=== PATIENT | male | born 1955 | race Caucasian/White ===

== ENCOUNTER 2022-08-07 11:41 | Outpatient (CLI) | payer OTHER, SELFPAY | END 2022-08-07 11:42 | disposition home or self-care (01) | LOC: AMB 08-09 00:03 | PROVIDERS: Visit Provider Family Medicine | DX: S39.92XA Unspecified injury of lower back, initial encounter (principal); W10.9XXA Fall (on) (from) unspecified stairs and steps, initial encounter; Y92.009 Unspecified place in unspecified non-institutional (private) residence as the place of occurrence of the external cause | CPT/HCPCS: A0425; A0427 ==

== ENCOUNTER 2022-08-07 12:21 | Emergency (ER) | payer OTHER, SELFPAY ==
[2022-08-07] VITALS (13 sets, daily range): BP systolic 97–136; BP diastolic 62–92; PULSE 86–100; RESP 20–24; TEMP 34.8; O2SAT 88–98; BMI 33.5
--- NOTE | 2022-08-07 12:30 | CRLHL7_ITS ---
For Patients: As a result of the Century Cures Act, medical imaging exams and procedure reports are released immediately into your electronic medical record. You may view this report before your referring provider. If you have questions, please contact your health care provider. HISTORY: Fall. Trauma. TECHNIQUE: Noncontrast CT cervical spine. COMPARISON: No prior. FINDINGS: There is no acute cervical spine fracture. There is mild reversal of the normal cervical lordosis. Slight anterolisthesis of C4 on C5 likely relates to facet joint degenerative arthrosis. No prevertebral soft tissue swelling. - At C2-C3, no central canal or left foraminal stenosis. There is mild right foraminal narrowing. At C3-C4, disc-osteophyte complex. No central canal or right foraminal stenosis. There is mild left foraminal stenosis. At C4-C5, no central canal or foraminal stenosis. At C5-C6, disc-osteophyte complex with mild ventral thecal sac effacement. No foraminal stenosis. At C6-C7, disc-osteophyte complex. Mild ventral thecal sac effacement. Mild foraminal narrowing. At C7-T1, no central canal or foraminal stenosis. IMPRESSION: 1. No acute cervical fracture. 2. Degenerative changes. Dictated by Pascual Vickers MD @ 08/07/2022 2:03:44 PM Please note that all CT scans at this facility use dose modulation, iterative reconstruction, and/or weight-based dosing when appropriate to reduce radiation dose to as low as reasonably achievable. Dictated by: Pascual Vickers MD @ 08/07/2022 14:03:51 (Electronically Signed)
--- NOTE | 2022-08-07 12:30 | CRLHL7_ITS ---
For Patients: As a result of the Century Cures Act, medical imaging exams and procedure reports are released immediately into your electronic medical record. You may view this report before your referring provider. If you have questions, please contact your health care provider. HISTORY: Fall. Trauma. TECHNIQUE: Noncontrast CT of the head. COMPARISON: No prior. FINDINGS: There is no acute intracranial hemorrhage or acute ischemic infarct. Areas of white matter low attenuation are nonspecific but likely reflect sequelae of chronic small vessel ischemic changes. No mass effect or midline shift. No hydrocephalus. No acute loss of sharif-white differentiation. Mastoid air cells are clear. Mucosal thickening involving the right greater left maxillary sinuses. Mucosal thickening involving ethmoid air cells. No acute skull fracture. IMPRESSION: No acute intracranial injury or disease. Dictated by Pascual Vickers MD @ 08/07/2022 2:00:45 PM Please note that all CT scans at this facility use dose modulation, iterative reconstruction, and/or weight-based dosing when appropriate to reduce radiation dose to as low as reasonably achievable. Dictated by: Pascual Vickers MD @ 08/07/2022 14:00:49 (Electronically Signed)
--- NOTE | 2022-08-07 12:30 | CRLHL7_ITS ---
For Patients: As a result of the Cures Act, medical imaging exams and procedure reports are released immediately into your electronic medical record. You may view this report before your referring provider. If you have questions, please contact your health care provider. HISTORY: Trauma. Fall. TECHNIQUE: One view chest. COMPARISON: 09/05/2012. FINDINGS: No focal lung infiltrate or pulmonary edema. No pneumothorax or pleural effusion. Heart size within normal limits accounting for technique. No pulmonary vascular congestion. There is deformity of a few of the left lateral ribs likely reflecting sequelae of prior trauma. IMPRESSION: 1. No acute cardiopulmonary disease. 2. Deformity of a few left lateral ribs likely reflecting sequelae of prior trauma. Dictated by Pascual Vickers MD @ 08/07/2022 2:05:21 PM Dictated by: Pascual Vickers MD @ 08/07/2022 14:05:26 (Electronically Signed)
--- NOTE | 2022-08-07 12:30 | ED.NURSE ---
Patient arrives via [facility] after falling down stairs in his home (~ 6 stairs). Hit his chest/left side on the wall during fall, tumbled downstairs. No LOC. Denies hitting head. No head/neck pain. Patient supine on cot with complaints of 10/10 low back, left buttock/leg pain. No signs of external bleeding noted. Patient alert and oriented x4. He denies ETOH use. EMS has administered 100mcg fentanyl, 2L 02 via nasal cannula for spo2 84%. Patient with nausea. Dr. Madrid in with patient for exam on arrival. Patient disrobed, log roll completed and spine assessed. No obvious injury noted. Patient's left leg appears slightly shortened. Sensation intact BLE, patient cap refill 4 seconds. Patient feels cold to touch so warm blankets provided. Plan for head/neck/chest/pelvic scans. Patient to radiology via cot.
--- NOTE | 2022-08-07 12:30 | CRLHL7_ITS ---
For Patients: As a result of the Cures Act, medical imaging exams and procedure reports are released immediately into your electronic medical record. You may view this report before your referring provider. If you have questions, please contact your health care provider. HISTORY: Hip pain. Fall. Trauma. TECHNIQUE: AP pelvis and 2 views of the left hip. COMPARISON: No prior. FINDINGS: On the right, there are mild displaced fractures of the superior and inferior pubic rami. On the left, there is subtle lucency involving the acetabulum suspicious for an acetabular fracture. No proximal femoral fracture. No hip dislocation. IMPRESSION: 1. On the left, there is subtle lucency involving the acetabulum suspicious for a fracture. 2. On the right, there are mildly displaced fractures of the superior and inferior pubic rami. Dictated by Pascual Vickers MD @ 08/07/2022 2:07:16 PM Dictated by: Pascual Vickers MD @ 08/07/2022 14:07:20 (Electronically Signed)
[2022-08-07 12:54] LABS: Basophils Percent Auto 0.1 % (0.0-3.0); Eosinophils Percent Auto 0.6 % (0.0-7.0); Hematocrit 48.3 % (37.0-53.0); Hemoglobin* 16.2 gm/dL (13.5-17.5); Immature Granulocytes Pct Auto 0.5 %; Lymphocytes Percent Auto 9.3 % (20-44); Mean Corpuscular HGB Conc 34 gm/dL (32-36); Mean Corpuscular Hemoglobin 33 pg (26-34); Mean Corpuscular Volume 97 fL (80-100); Monocytes Percent Auto 6.5 % (0.0-11.0); Platelet Count* 204 K/uL (140-440); RDW Coefficient of Variation % 12.8 % (11.5-15.5); Red Blood Count 4.96 m/uL (4.30-5.90); White Blood Count* 19.11 K/uL (4.50-11.00)
[2022-08-07 12:56] LABS: Slide Review Reflex No
--- NOTE | 2022-08-07 13:00 | CRLHL7_ITS ---
For Patients: As a result of the Century Cures Act, medical imaging exams and procedure reports are released immediately into your electronic medical record. You may view this report before your referring provider. If you have questions, please contact your health care provider. HISTORY: Fall. Trauma. TECHNIQUE: Noncontrast CT of the pelvis. COMPARISON: Radiographs 08/07/2022. FINDINGS: There is an acute multi-directional comminuted fracture of the left acetabulum. This involves the anterior, medial, superior and posterior superior acetabulum. There is approximately 6 mm displacement at the articular surface. Approximately 11 mm displacement involving the supra-acetabular iliac into which the fracture propagates. There is also an acute fracture of the left inferior pubic ramus which demonstrates approximately 3 mm displacement. There is no left proximal femoral fracture. On the right, there are acute fractures of the superior and inferior pubic rami and demonstrating approximately 4 mm of displacement. There is no right acetabular or right proximal femoral fracture. There are mild degenerative changes of both hips. Degenerative changes of the pubic symphysis with chondrocalcinosis. Degenerative changes of the sacroiliac joints. There is a small soft tissue hemorrhage along the pelvic sidewalls and within the space of Retzius. IMPRESSION: 1. On the left, there is an acute multi-directional comminuted fracture of the acetabulum propagating into the supra-acetabular iliac bone. 2. On the left, there is an acute minimally displaced fracture of the inferior pubic ramus. 3. On the right, there are acute mildly displaced fractures of the superior and inferior pubic rami. 4. Small amount of soft tissue hemorrhage along the pelvic sidewalls. Dictated by Pascual Vickers MD @ 08/07/2022 2:14:27 PM Please note that all CT scans at this facility use dose modulation, iterative reconstruction, and/or weight-based dosing when appropriate to reduce radiation dose to as low as reasonably achievable. Dictated by: Pascual Vickers MD @ 08/07/2022 14:14:31 (Electronically Signed)
[2022-08-07 13:07] LABS: Chloride* 99 mmol/L (96-114); Potassium* 3.6 mmol/L (3.6-5.1); Sodium* 135 mmol/L (135-149)
[2022-08-07 13:10] LABS: Blood Urea Nitrogen* 13 mg/dL (7-30); Calcium* 8.8 mg/dL (8.4-10.6); Carbon Dioxide* 27 mmol/L (20-32); Creatinine* 1.2 mg/dL (0.5-1.5); Est. Creatinine Clearance* 64.49; Estimated Glomerular Filt Rate 67 ml/min; Ethanol* 0.16 % (0.01-0.03); Glucose* 105 mg/dL (60-115)
[2022-08-07] MEDS: ONDANSETRON 2 MG/ML inj 4 MG IVP (13:20)
[2022-08-07] MEDS: 0.9 % SODIUM CHLORIDE 1000 ml 1,000 ML IV (13:30)
[2022-08-07] MEDS: MORPHINE 4 MG/ML INJ IVP ×2 (13:35→13:42)
--- NOTE | 2022-08-07 13:39 | ED_ITS ---
HPI - Fall General Date Seen: 08/07/22 Chief Complaint: Fall/Minor Trauma Stated Complaint: Fall down stairs Time Seen by Provider: 08/07/22 12:30 Source: patient and EMS Mode of arrival: EMS Limitations: no limitations History of Present Illness HPI Narrative: Patient is the 67-year-old gentleman who fell down approximately 6 stairs, onto his left side, shoulders and pelvis, no striking his head or neck, there was no loss of consciousness, he was able to crawl, and bear weight, call a friend, who then called the ambulance to come get him. This occurred approximately an hour and half before being seen. Describes pain mostly in his pelvis, whenever he moves his legs. No numbness tingling weakness, no nausea vomiting, he did not see stars, denies any issue with his upper extremities, is not on any blood thinners, gets his medical care at the [place], Denies any fevers chills sweats, was doing well before, admits to drinking a few beers. MD complaint: fall Onset (ago): hour(s) Fall from: standing and down stairs (#) (6) Fall witnessed: no Place fall occurred: home Loss of consciousness: No Prolonged down time: no Symptoms prior to fall: none Context: tripped/slipped and alcohol use Location of injury: pelvis Severity: moderate Quality: sharp Associated symptoms (after fall): denies Related Data Home Medications Medication Instructions Recorded Confirmed doxepin 08/07/22 hydrochlorothiazide 08/07/22 meloxicam 08/07/22 Allergies Allergy/AdvReac Type Severity Reaction Status Date / Time Penicillins Allergy Verified 08/07/22 12:36 Review of Systems Status of ROS: Reports: 10 or more systems reviewed and unremarkable except as noted in History and below Exam Narrative: Exam Narrative: TT a was called, patient was met in the trauma room 1, speaking to me normally, he was brought over from the gurney, he was not on a long board with neck protection, no complaints of neck back pain. Only complaints were pelvic pain. Pupils are equal round reactive to light, he is speaking to me normally, his neck is supple full range of motion of flexion extension lateral flexion rotation is noted. TMs are normal, no evidence of trauma over the head or neck region. GCS is 15/15, chest is good air entry bilaterally with no wheezing crackles noted, heart sounds are normal, no palpable tenderness over his anterior chest or posterior chest, abdomen is soft, obese, no guarding noted, no tenderness, no organomegaly, no bruising, pelvis is stable, but tender on the left side when I rock it, there is no blood at the penis, or meatus. No evidence of trauma, he is able to move both legs but any sort of movement of left greater than right causes pain that localizes to his pelvis. Patient is log-rolled onto his right side, his back is palpated, there is no tenderness masses or injury noted to his L-spine T-spine or C-spine notable. A good air entry with no evidence of any other of bruising or trauma. He is log- rolled back. did a fast exam, there is no evidence of free fluid, in either the splenorenal hepatorenal, or retropubic space. Const: Vital Signs, click to edit/add: Vital Signs - 24 hr 08/07/22 12:29 Temperature 94.7 F L Pulse Rate [Right Pulse Oximeter] 87 Respiratory Rate 20 Blood Pressure [Ri ght Upper Arm] 110/80 Pulse Oximetry 88 Oxygen Delivery Me thod Room Air Documenting provider has reviewed patient's vital signs: yes Course Course Hospital Course: Patient's x-ray suggested there is a pelvic fracture so CT was done urgently, while he was in the department. This showed multiple fractures on the left side through his the ileum, acetabulum, greater inferior ramus on the left, and greater ramus on the right. This is all in stable, and the risk of bleeding is high, he was immediately then put into a pelvic binder, 2nd IV was started, and [facility] was consult, I spoke to Dr. Montes at the emergency room, he accepted the patient in transfer. Time of call was 1 hour and 1 minute after the patient arrived. He will be transferred by ALS with a pelvic binder, Vital Signs Vital signs: Initial Vital Signs Temperature 94.7 F L 08/07/22 12:29 Temperature Source Temporal Artery Scan 08/07/22 12:29 Pulse Rate 87 08/07/22 12:29 Respiratory Rate 20 08/07/22 12:29 Blood Pressure 110/80 08/07/22 12: Blood Pressure Mean 90 08/07/22 12:29 Blood Pressure Position Supine 08/07/22 12:29 Pulse Oximetry 88 08/07/22 12:29 Oxygen Delivery Method Room Air 08/07/22 12:29 Vital Signs Temperature 94.7 F L 08/07/22 12:29 Pulse Rate 87 08/07/22 12:29 Respiratory Rate 20 08/07/22 12:29 Blood Pressure 110/80 08/07/22 12:29 Pulse Oximetry 88 08/07/22 12:29 Oxygen Delivery Method Room Air 08/07/22 12:29 Temperature 94.7 F L 08/07/22 12:29 Pulse Rate 87 08/07/22 12:29 Respiratory Rate 20 08/07/22 12:29 Blood Pressure 110/80 08/07/22 12:29 Pulse Oximetry 88 08/07/22 12:29 Oxygen Delivery Method Room Air 08/07/22 12:29 MDM - Fall Medical Records Attestation: I reviewed the patient's medical records. Lab Data Attestation: I reviewed the patient's lab results. Labs: Lab Results 08/07/22 Range/Units 12:32 WBC 19.11 H (4.50-11.00) K/uL RBC 4.96 (4.30-5.90) m/uL Hgb 16.2 (13.5-17.5) gm/dL Hct 48.3 (37.0-53.0) % MCV 97 (80-100) fL MCH 33 (26-34) pg MCHC 34 (32-36) gm/dL RDW Coeff of Shayy 12.8 (11.5-15.5) % Plt Count 204 (140-440) K/uL Neut % (Auto) 83.0 H (42.0-72.0) % Lymph % (Auto) 9.3 L (20-44) % [place] % (Auto) 6.5 (0.0-11.0) % Eos % (Auto) 0.6 (0.0-7.0) % Baso % (Auto) 0.1 (0.0-3.0) % Neut # (Auto) 15.90 H (1.7-7.0) K/uL Lymph # (Auto) 1.80 (0.90-2.90) K/uL Durham # (Auto) 1.20 H (0.00-0.90) K/UL Eos # (Auto) 0.10 (0.00-0.50) K/uL Baso # (Auto) 0.00 (0.00-0.30) K/uL Sodium 135 (135-149) mmol/L Potassium 3.6 (3.6-5.1) mmol/L Chloride 99 (96-114) mmol/L Carbon Dioxide 27 (20-32) mmol/L BUN 13 (7-30) mg/dL Creatinine 1.2 (0.5-1.5) mg/dL Estimated Creat Clear 64.49 Estimated GFR 67 ml/min Glucose 105 (60-115) mg/dL Calcium 8.8 (8.4-10.6) mg/dL Ethyl Alcohol 0.16 H (0.01-0.03) % ECG Data Attestation: I personally reviewed and interpreted this ECG as follows: ECG interpretation date: 08/07/22 Prior ECG tracings: not available for review Interpretation: Normal sinus rhythm, no acute ST wave changes, some ST wave flattening noted laterally, Critical Care Time Critical Care Time Critical Care Time: Yes Attestation: The patient required my highest level preparedness to intervene emergently and I personally spent this critical care time directly and personally managing the patient. This critical care time included: Obtaining a history; Examining the patient; Pulse oximetry; Ordering and reviewing of studies; Arranging urgent treatment with development of a management plan; Evaluation of patients response to treatment; Frequent reassessment discussions with other providers. This critical care time was performed to assess and manage the high probability of imminent life-threatening deterioration that could result in multiorgan failure. It was exclusive of separate billable procedures and treating other patients and teaching time. Total Critical Care Time in Minutes: 45 Discharge Plan Discharge Clinical Impression: Blood-alcohol level elevation, Multiple closed unstable lateral compression fractures of pelvis, Fall (on) (from) other stairs and steps, initial encounter Patient Disposition: [facility] Acute Care Hospital Discharge Location: [facility] Condition: Critical Prescriptions: No Action hydrochlorothiazide meloxicam doxepin Follow Up/Referrals: Provider,Not a Local [Primary Care Provider] -
--- NOTE | 2022-08-07 13:45 | ED_ITS ---
ED Chart Note Chart Note Details Date: 08/07/22 Details: E fast was performed on this patient by myself as requested by Dr. Madrid. Indication was blunt thoracoabdominal trauma. Findings: Hepatic renal space showed no evidence of free fluid and the splenorenal space showed no evidence of free fluid. Suprapubic views show no evidence of free fluid. PSA LA cardiac view was limited and somewhat difficult but there was certainly no gross pericardial fluid, no tamponade noted. Bilater al sliding lung signs were present in the left and right apical lung views. Interpretation: Negative E fast.
[2022-08-07] MEDS: MORPHINE 4 MG/ML INJ 2 MG IVP (13:55)
[2022-08-07] MEDS: fentaNYL 100 MCG/2 ML inj 50 MCG IVP (14:05)
--- NOTE | 2022-08-07 14:19 | ED.NURSE ---
Report to JENS Wright. Patient en route to their ED via [facility].
== END 2022-08-07 14:24 | disposition short-term general hospital (02) ==
PROVIDERS: Emergency Provider Family Medicine
DX: S32.82XA Multiple fractures of pelvis without disruption of pelvic ring, initial encounter for closed fracture (principal); W10.9XXA Fall (on) (from) unspecified stairs and steps, initial encounter; F10.90 Alcohol use, unspecified, uncomplicated
CPT/HCPCS: 36415; 70450; 71045; 72125; 72192; 73502; 76604; 76705; 80048; 82077; 85025; 93005; 93308; 96374; 96375; 96376; 99285; 99291; G0390; J2270; J2405; J3010; J7030

== ENCOUNTER 2022-08-07 13:56 | Outpatient (CLI) | payer OTHER, SELFPAY | END 2022-08-07 13:57 | disposition home or self-care (01) | LOC: AMB 08-09 00:08 | PROVIDERS: Visit Provider Family Medicine | DX: S32.9XXS Fracture of unspecified parts of lumbosacral spine and pelvis, sequela (principal) | CPT/HCPCS: A0425; A0426; A0427 ==

== ENCOUNTER 2023-01-30 08:01 | Outpatient (CLI) | payer OTHER, SELFPAY | END 2023-01-30 08:02 | disposition home or self-care (01) | LOC: AMB 01-31 08:12 | PROVIDERS: Visit Provider Family Medicine | DX: R53.1 Weakness (principal); R53.83 Other fatigue; R11.2 Nausea with vomiting, unspecified | CPT/HCPCS: A0425; A0427 ==

== ENCOUNTER 2023-01-30 08:37 | Observation (INO) | payer OTHER, SELFPAY ==
[2023-01-30] VITALS (34 sets, daily range): BP systolic 101–151; BP diastolic 66–86; PULSE 94–115; RESP 18; TEMP 35.7–36.6; O2SAT 91–98; BMI 32.8; BMI 35.1
--- NOTE | 2023-01-30 09:00 | CRLHL7_ITS ---
For Patients: As a result of the Century Cures Act, medical imaging exams and procedure reports are released immediately into your electronic medical record. You may view this report before your referring provider. If you have questions, please contact your health care provider. INDICATION: Shortness of breath. Abdominal pain. TECHNIQUE: CT chest was acquired with 116 cc Isovue 370 IV contrast. COMPARISON: None. FINDINGS: Lungs and pleura: 4 mm solid right upper lobe nodule (3; 40). 4 mm solid right middle lobe nodule (3; 60). Benign calcified right lower lobe granuloma (2, 3; 63). No pleural effusions, pleural thickening, or pneumothorax. Heart and vasculature: Heart size is normal. Thoracic aorta and pulmonary artery are normal in caliber. Lymph nodes/mediastinum: No mediastinal, hilar, or axillary adenopathy. Chest wall: No masses. Upper abdomen: Small hiatus hernia containing homogeneous low-density fluid abutting the right lower thoracic esophagus. The fluid is not circumscribed to indicate a cystic lesion, for example. The significance of this finding in the acute setting is undetermined. Hepatic steatosis is also noted. Please refer to the separate abdominal CT report from the same day for a complete description of findings related to the upper abdominal viscera. Bones: Chronic healed contiguous rib fracture deformities of left ribs 3, 4 and 5. IMPRESSION: Fat and fluid containing right paraesophageal hiatus hernia, of undetermined clinical significance in the acute setting. As always, the significance of imaging findings should be correlated with the patient`s clinical status. Incidental 4 mm right upper lobe and right middle lobe solid pulmonary nodules for which consensus scan as recommend no routine ongoing imaging surveillance in the absence of a stab history of malignancy or clinical risk factors for lung cancer such as a history of smoking. If the latter, a 12 month follow-up chest CT is recommended. Please refer to the separate abdominal CT report from the same day for a complete description of findings related to the upper abdominal viscera. Please note that all CT scans at this facility use dose modulation, iterative reconstruction, and/or weight-based dosing when appropriate to reduce radiation dose to as low as reasonably achievable. Dictated by Isai Aguilar MD @ 01/30/2023 12:35:01 PM (Electronically Signed)
--- NOTE | 2023-01-30 09:00 | CRLHL7_ITS ---
For Patients: As a result of the Century Cures Act, medical imaging exams and procedure reports are released immediately into your electronic medical record. You may view this report before your referring provider. If you have questions, please contact your health care provider. INDICATION: Abdominal pain, shortness of breath. COMPARISON: CT of the pelvis dated 08/07/2022. TECHNIQUE: CTA of the abdomen and pelvis with IV contrast. 116 cc of Isovue-370 administered. FINDINGS: Imaging obtained in the portal venous phase. A separate chest CT was obtained on same day likely with the same contrast bolus. Please see separate dictation. There is a small hiatal hernia containing small amount of fluid. Diffuse hepatic steatosis. Patent portal and hepatic veins. Patent splenic and mesenteric veins. No gallbladder distention. The spleen is normal in size. Adrenal glands appear unremarkable. The pancreas is normal in appearance. The iliac veins and IVC are patent. Atherosclerotic changes in the abdominal aorta without abdominal aortic aneurysm. Proximal visceral arteries appear patent. No free intraperitoneal air or fluid. Extensive fractures in the pelvis redemonstrated, incompletely healed. A serpiginous signal is seen in the bilateral femoral heads suggesting perhaps development of AVN of the bilateral femoral heads. No bowel obstruction. Appendix is normal. No colonic diverticulitis. The urinary bladder and prostate appears unremarkable. There is a mild compression deformity of the superior endplate of the L2 vertebral body and of the T11 vertebral body. IMPRESSION: 1. Severe diffuse hepatic steatosis. 2. 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 3. There is a mild compression deformity of the superior endplate of the L2 vertebral body and of the T11 vertebral body; correlate with point tenderness to terminate these fractures described seen trimester pelvic fractures are these could be more acute. Please note that all CT scans at this facility use dose modulation, iterative reconstruction, and/or weight-based dosing when appropriate to reduce radiation dose to as low as reasonably achievable. Dictated by Mendez Gracia MD @ 01/30/2023 12:45:20 PM (Electronically Signed)
--- NOTE | 2023-01-30 09:04 | ED_ITS ---
HPI - General Adult General Chief complaint: Nausea/Vomiting Stated complaint: weakness,nausea,vomiting Time Seen by Provider: 01/30/23 08:41 History of Present Illness HPI narrative: Patient is a 67 year white male who reports nausea and vomiting some chills over a week's time. He reports he has fallen multiple times because of lightheadedness and dizziness when he gets up and walks around. His blood pressure noted to be in the 60s to 70 systolic when EMS arrived, his blood pressure is now improved to 101, he does not feel like he has fevers anymore, he has had occasional shortness of breath, occasional cough, he has fallen a couple of times on his way to the bathroom and smells of urine he was unable to clean himself. Friends were concerned they brought the ambulance to his house and they brought him to the emergency department. He has had a history of a pelvic fracture he has had a history of hypertension and arthritic change in hypercholesterolemia. [facility]. he reports that he bruised his right great toe but he is moving it fully and does not feel like anything is wrong with it. He has no other pain presently. Related Data Home Medications Medication Instructions Recorded Confirmed doxepin 08/07/22 hydrochlorothiazide 08/07/22 meloxicam 08/07/22 hydrochlorothiazide 25 mg tablet 25 mg PO DAILY 01/30/23 01/30/23 sertraline 25 mg tablet 25 mg PO DAILY 01/30/23 01/30/23 simvastatin 20 mg tablet 20 mg PO QPM 01/30/23 01/30/23 Allergies Allergy/AdvReac Type Severity Reaction Status Date / Time Penicillins Allergy Verified 01/30/23 08:53 Review of Systems Status of ROS: Reports: 10 or more systems reviewed and unremarkable except as noted in History and below PFSH PFS Social History Smoking Status: Current some day smoker What tobacco products do you use: cigarettes Do you use any of these nicotine containing products: None Second hand tobacco smoke exposure: No How often do you have a drink containing alcohol: 4 or more times a week How many standard drinks containing alcohol do you have on a typical day: 1 or 2 How often do you have six or more drinks on one occasion: Never AUDIT-C Alcohol total score: 4 Non-prescribed substance use: denies use service: Yes Exam Narrative: Exam Narrative: Objective: Vital signs show blood pressure 101/86, was about 64 systolic on presentation to the EMS at home. Pulse is elevated 115, no fever noted. HEENT is unremarkable slightly dry mucous membranes neck is supple chest is clear no rales or wheezing Heart rate and rhythm regular with ectopic beat noted 2/6 systolic murmur Abdomen benign nontender no masses Extremities he has got a slight bruise over the top of his right great toe moving it fully and not markedly tender he has got no pain in his upper and lower extremities, good motion of all extremities. Neurologic is nonfocal upper lower extremities Skin periphery is warm With sitting up for examination the patient did feel little lightheaded. The patient smells of urine, reports he has had some leaking of urine as well. Const: Vital Signs, click to edit/add: Vital Signs - 24 hr 01/30/23 08:47 01/30/23 09:00 01/30/23 09:45 Temperature 96.3 F L Pulse Rate 105 H Pulse Rate [Pulse Oximeter] 115 H Respiratory Rate 18 Blood Pressure Blood Pressure [Ri ght Upper Arm] 101/86 Pulse Oximetry 97 92 96 Oxygen Delivery Me thod Room Air 01/30/23 10:00 01/30/23 10:02 01/30/23 10:03 Temperature Pulse Rate 104 H 107 H 106 H Pulse Rate [Pulse Oximeter] Respiratory Rate Blood Pressure 151/86 H Blood Pressure [Ri ght Upper Arm] Pulse Oximetry 98 93 96 Oxygen Delivery Me thod 01/30/23 10:15 01/30/23 10:43 01/30/23 10:45 Temperature Pulse Rate 107 H 104 H 109 H Pulse Rate [Pulse Oximeter] Respiratory Rate Blood Pressure Blood Pressure [Ri ght Upper Arm] Pulse Oximetry 93 94 94 Oxygen Delivery Me thod 01/30/23 11:00 01/30/23 11:02 01/30/23 11:15 Temperature Pulse Rate 106 H 104 H 102 H Pulse Rate [Pulse Oximeter] Respiratory Rate Blood Pressure 121/72 Blood Pressure [Ri ght Upper Arm] Pulse Oximetry 96 94 95 Oxygen Delivery Me thod 01/30/23 11:30 01/30/23 11:31 01/30/23 11:45 Temperature Pulse Rate 101 H 102 H 103 H Pulse Rate [Pulse Oximeter] Respiratory Rate Blood Pressure 121/79 Blood Pressure [Ri ght Upper Arm] Pulse Oximetry 98 95 98 Oxygen Delivery Me thod 01/30/23 12:00 01/30/23 12:02 01/30/23 12:03 Temperature Pulse Rate 100 101 H 102 H Pulse Rate [Pulse Oximeter] Respiratory Rate Blood Pressure 120/79 Blood Pressure [Ri ght Upper Arm] Pulse Oximetry 97 92 95 Oxygen Delivery Me thod 01/30/23 12:15 01/30/23 12:30 01/30/23 12:31 Temperature Pulse Rate 102 H 103 H 98 Pulse Rate [Pulse Oximeter] Respiratory Rate Blood Pressure 120/72 Blood Pressure [Ri ght Upper Arm] Pulse Oximetry 96 94 94 Oxygen Delivery Me thod 01/30/23 12:45 01/30/23 13:00 01/30/23 13:02 Temperature Pulse Rate 100 100 100 Pulse Rate [Pulse Oximeter] Respiratory Rate Blood Pressure 124/71 Blood Pressure [Ri ght Upper Arm] Pulse Oximetry 95 95 94 Oxygen Delivery Me thod Course Vital Signs Vital signs: Initial Vital Signs Temperature 96.3 F L 01/30/23 08:47 Temperature Source Temporal Artery Scan 01/30/23 08:47 Pulse Rate 115 H 01/30/23 08:47 Respiratory Rate 18 01/30/23 08:47 Blood Pressure 101/86 01/30/23 08:47 Blood Pressure Mean 91 01/30/23 08:47 Blood Pressure Position Sitting 01/30/23 08:47 Pulse Oximetry 97 01/30/23 08:47 Oxygen Delivery Method Room Air 01/30/23 08:47 Vital Signs Temperature 96.3 F L 01/30/23 08:47 Pulse Rate 115 H 01/30/23 08:47 Respiratory Rate 18 01/30/23 08:47 Blood Pressure 101/86 01/30/23 08:47 Pulse Oximetry 97 01/30/23 08:47 Oxygen Delivery Method Room Air 01/30/23 08:47 Temperature 96.3 F L 01/30/23 08:47 Pulse Rate 100 01/30/23 13:02 Respiratory Rate 18 01/30/23 08:47 Blood Pressure 124/71 01/30/23 13:02 Pulse Oximetry 94 01/30/23 13:02 Oxygen Delivery Method Room Air 01/30/23 08:47 Medical Decision Making MDM Narrative Medical decision making narrative: [age] [facility] white male [facility] with history of alcohol issues, pelvic fracture, hypercholesterolemia and probable hypertension. The patient presents with one-week history of nausea vomiting some loose stools, with significant dizziness lightheadedness falling. Patient has had some urinary incontinence, denies any back pain or neurologic lower extremity symptoms. At this point given the patient's systolic blood pressure in the 60s on presentation I think is in significant hypovolemic state that has improved with his IV fluid. I think we need do treat him for potential sepsis with his hypotension and his prolonged illness. Will give him IV fluids, IV banana bag, IV ertapenem. Will do blood cultures urine culture CT scan of the chest abdomen pelvis. Patient likely will need admission for observation over period of time. Will touch discussed the hospitals when labs are complete. 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 He does not describe hip pain or difficulty walking. There is also mild compression deformity superior endplate of L2 and T11 but he denies any specific back pain but he has had some falls. Again does not describe back pain. Ortho consult might be appropriate. He does also have a para soft GL hiatal hernia, and denies difficulty swallowing, and incidental 4 mm right upper lobe and middle lobe solid pulmonary nodules that will need follow-up in about 12 months Lab Data Labs: Lab Results 01/30/23 01/30/23 Range/Units 09:15 09:22 WBC 8.50 (4.50-11.00) K/uL RBC 4.06 L (4.30-5.90) m/uL Hgb 13.6 (13.5-17.5) gm/dL Hct 39.6 (37.0-53.0) % MCV 98 (80-100) fL MCH 34 (26-34) pg MCHC 34 (32-36) gm/dL RDW Coeff of Shayy 12.7 (11.5-15.5) % Plt Count 321 (140-440) K/uL Neut % (Auto) 69.2 (42.0-72.0) % Lymph % (Auto) 16.2 L (20-44) % [place] % (Auto) 12.6 H (0.0-11.0) % Eos % (Auto) 0.5 (0.0-7.0) % Baso % (Auto) 0.7 (0.0-3.0) % Neut # (Auto) 5.88 (1.7-7.0) K/uL Lymph # (Auto) 1.40 (0.90-2.90) K/uL [place] # (Auto) 1.10 H (0.00-0.90) K/UL Eos # (Auto) 0.04 (0.00-0.50) K/uL Baso # (Auto) 0.06 (0.00-0.30) K/uL Abs Immat Gran (auto) 0.07 (0.00-0.30) K/uL Imm/Tot Granulo (auto) 0.8 % INR 0.97 (0.91-1.10) APTT 26 (23-33) Seconds VBG pH 7.493 H (7.32-7.43) VBG pCO2 34 L (40-50) mmHG VBG pO2 60.9 H (25-47) mmHG VBG HCO3 26 (21-28) mmol/L Sodium 132 L (135-149) mmol/L Potassium 3.4 L (3.6-5.1) mmol/L Chloride 87 L (96-114) mmol/L Carbon Dioxide 23 (20-32) mmol/L Anion Gap 22 H (7-15) mEq/L BUN 36 H (7-30) mg/dL Creatinine 1.1 (0.5-1.5) mg/dL Estimated Creat Clear 70.36 Estimated GFR 74 ml/min Glucose 108 (60-115) mg/dL Lactate 1.6 (0.5-1.9) mmol/L Calcium 9.9 (8.4-10.6) mg/dL Total Bilirubin 2.7 H (0.1-1.5) mg/dL Direct Bilirubin 1.7 H (0.0-0.5) mg/dL AST 163 H (12-35) U/L ALT 103 H (4-50) U/L Alkaline Phosphatase 192 H (40-150) U/L Troponin I 0.02 (0.01-0.04) ng/mL C-Reactive Protein 4.4 H (0.5-1.0) mg/dL NT-Pro-B Natriuret Pep 317 pg/mL Total Protein 7.9 (6.0-8.3) g/dL Albumin 4.5 (3.3-5.0) g/dL Amylase 75 (18-89) U/L Salicylates < 1.0 L (1.0-10) mg/dL Acetaminophen < 10.0 L (10.0-30.0) ug/mL Ethyl Alcohol < 0.01 L (0.01-0.03) % SARS-CoV-2 (PCR) Negative SARS-CoV-2 (Negative) Influenza Type A (PCR) Negative PCR FLU A (Negative) Influenza Type B (PCR) Negative PCR FLU B (Negative) RSV (PCR) Negative PCR RSV (Negative) Discharge Plan Discharge Clinical Impression: Acute hypotension, Nausea & vomiting, Hypovolemia, Compression fracture, AVN of femur Patient Disposition: Admitted As Observation
[2023-01-30] MEDS: ONDANSETRON 2 MG/ML inj 4 MG IVP (09:26)
[2023-01-30] MEDS: 0.9 % SODIUM CHLORIDE 1000 ml 1,000 ML 6000 ML IV (09:26)
[2023-01-30] MEDS: PANTOPRAZOLE SODIUM 40 MG INJ IVP (09:27)
[2023-01-30 09:29] LABS: HCO3 VBG 26 mmol/L (21-28); PCO2 VBG 34 mmHG (40-50); PO2 VBG 60.9 mmHG (25-47); pH VBG 7.493 (7.32-7.43)
[2023-01-30 09:31] LABS: Basophils Absolute Auto 0.06 K/uL (0.00-0.30); Basophils Percent Auto 0.7 % (0.0-3.0); Eosinophils Absolute Auto 0.04 K/uL (0.00-0.50); Eosinophils Percent Auto 0.5 % (0.0-7.0); Hematocrit 39.6 % (37.0-53.0); Hemoglobin* 13.6 gm/dL (13.5-17.5); Immature Granulocytes Abs Auto 0.07 K/uL (0.00-0.30); Immature Granulocytes Pct Auto 0.8 %; Lymphocytes Percent Auto 16.2 % (20-44); Mean Corpuscular HGB Conc 34 gm/dL (32-36); Mean Corpuscular Hemoglobin 34 pg (26-34); Mean Corpuscular Volume 98 fL (80-100); Monocytes Percent Auto 12.6 % (0.0-11.0); Neutrophils Absolute Auto 5.88 K/uL (1.7-7.0); Neutrophils Percent Auto 69.2 % (42.0-72.0); Platelet Count* 321 K/uL (140-440); RDW Coefficient of Variation % 12.7 % (11.5-15.5); Red Blood Count 4.06 m/uL (4.30-5.90)
[2023-01-30 09:32] LABS: Slide Review Reflex No
[2023-01-30] MEDS: ERTAPENEM 1 GM in 0.9 % SODIUM CHLORIDE Mini-bag 100 ML IVPB (09:35)
[2023-01-30 09:50] LABS: Albumin* 4.5 g/dL (3.3-5.0); Chloride* 87 mmol/L (96-114)
[2023-01-30 09:51] LABS: Potassium* 3.4 mmol/L (3.6-5.1); Sodium* 132 mmol/L (135-149)
[2023-01-30 09:53] LABS: Amylase* 75 U/L (18-89); Creatinine* 1.1 mg/dL (0.5-1.5); Est. Creatinine Clearance* 70.36; Estimated Glomerular Filt Rate 74 ml/min; INR 0.97 (0.91-1.10); Prothrombin Time 13.5 Seconds
[2023-01-30 09:54] LABS: Alanine Aminotransferase* 103 U/L (4-50); Alkaline Phosphatase* 192 U/L (40-150); Anion Gap 22 mEq/L (7-15); Aspartate Amino Transferase* 163 U/L (12-35); Bilirubin Direct* 1.7 mg/dL (0.0-0.5); Bilirubin Total* 2.7 mg/dL (0.1-1.5); Blood Urea Nitrogen* 36 mg/dL (7-30); Calcium* 9.9 mg/dL (8.4-10.6); Carbon Dioxide* 23 mmol/L (20-32); Glucose* 108 mg/dL (60-115); Partial Thromboplastin Time* 26 Seconds (23-33); Total Protein* 7.9 g/dL (6.0-8.3)
[2023-01-30 09:56] LABS: C Reactive Protein* 4.4 mg/dL (0.5-1.0)
[2023-01-30 10:05] LABS: Troponin I* 0.02 ng/mL (0.01-0.04)
[2023-01-30 10:07] LABS: Ethanol* < 0.01 % (0.01-0.03); NT Pro B Type NatriureticPept* 317 pg/mL
[2023-01-30 10:16] LABS: Lactate* 1.6 mmol/L (0.5-1.9)
[2023-01-30 10:17] LABS: PCR FLU A Negative PCR FLU A (Negative); PCR FLU B Negative PCR FLU B (Negative); PCR RSV Negative PCR RSV (Negative)
[2023-01-30 10:19] LABS: SARS PCR* Negative SARS-CoV-2 (Negative)
[2023-01-30 10:39] LABS: Acetaminophen* < 10.0 ug/mL (10.0-30.0); Salicylate* < 1.0 mg/dL (1.0-10)
[2023-01-30] MEDS: PHENobarbitaL 260 MG in 0.9 % SODIUM CHLORIDE 100 ml 100 ML 208 MG IVPB (16:16)
--- NOTE | 2023-01-30 16:20 | P.IMHP_ITS ---
Hospitalist- H&P: HPI History of Present Illness Time Seen by Provider: 15:15 Date Seen: 01/30/23 Chief complaint: weakness,nausea,vomiting Narrative: Vance Bustillo is a 67 year old male with history of heavy alcohol use and a pelvic fracture in July from falling down the stairs while under the influence of alcohol who presented through the ER for concerns of 8 days of vomiting. He tells me that he started vomiting every 15 minutes 8 days ago and has been kelli ble to keep much down. He was still taking his medications which include hydrochlorothiazide for blood pressure. He started to get dehydrated in felt dizzy and over the last 2 days had several falls. Also over the last 8 days he has been incontinent of urine because he was unable to get to the bathroom in time. When EMS arrived his systolic blood pressures were in the 60s. He got fluids and by the time he got to the ER his pressures had improved with systolic pressures in the 110s. He notes some mild mid abdominal pain. He volunteered that he is ?not an alcoholic.? Please see social history for alcohol use. His sister and [id number] came in [facility] through our interview and brought his medications. They did not say much and the patient gave most of the history. Review of Systems Const: Reports: change in sleep pattern (Insomnia); Denies: fever or chills Eyes: Denies: change in vision ENMT: Reports: other (Sneezing); Denies: throat pain, neck pain, difficulty swallowing, hoarseness or nasal congestion Cardio: Denies: chest pain, swelling of feet/ankles or shortness of breath with exertion Resp: Reports: cough; Denies: shortness of breath, wheezing, change in phlegm color or chest congestion GI: Reports: abdominal pain (Mid), nausea and vomiting; Denies: coffee grounds in vomit, diarrhea, constipation, bloating, belching, difficulty swallowing, blood in stool or mucus in stool : Denies: painful urination, urinary frequency or urinary urgency Musculo: Denies: back pain, neck pain or muscle cramps Integ/Breast: Denies: rash or itching Neuro: Reports: dizziness; Denies: headache, weakness in extremities or confusion Psych: Reports: panic attacks (Chronic PTSD) Allergy/Immuno: Denies: wheezing [facility] Medical History (Updated 01/30/23 @ 16:52 by Tri Fung MD) PTSD (post-traumatic stress disorder) ?F43.10 - Post-traumatic stress disorder, unspecified (ICD-10) Insomnia ?G47.00 - Insomnia, unspecified (ICD-10) Hyperlipidemia ?E78.5 - Hyperlipidemia, unspecified (ICD-10) Arthritis ?M19.90 - Unspecified osteoarthritis, unspecified site (ICD-10) Hypertension ?I10 - Essential (primary) hypertension (ICD-10) Fall (~07/2022) ?W19.XXXA - Unspecified fall, initial encounter (ICD-10) Pelvic fracture (~07/2022) ?S32.9XXA - Fracture of unspecified parts of lumbosacral spine and pelvis, initial encounter for closed fracture (ICD-10) Social History (Updated 01/30/23 @ 16:37 by Tri Fung MD) Narrative: Quit smoking in 2012, picked it up again last April and smoked through July or August of this year. Has not had cigarettes since that time. Continuous alcohol use over many years with the exception several months while in the hospital and long-term earlier this year for a pelvic fracture that was sustained he tripped down the stairs under the influence of alcohol. Upon returning home about 3 months ago, he increased his drinking quite a bit, but notes that it has now stabilized back down to about 1.5 L of vodka spread out over 6 days. Denies use of any other types of alcohol. Denies recreational drug use, but says if he had access to marijuana he would use it for his chronic pelvic pain. 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 he had several tours in [place] and [place] and has PTSD. He was also in the [employer] for a while. What is your current living situation?: I presently have a place to live Problems where you live: no known problems Problems where you live details: N/A In the past 12 months, utilities in danger of being shut off: no In the past 12 mos, have been you worried that your food would run out before you had money to buy more?: never true In the past 12 mos, the food you bought just didn't last and you didn't have money to buy more?: never true Highest level of school completed/degree received: Bachelor's degree Smoking Status: Current some day smoker What tobacco products do you use: cigarettes Do you use any of these nicotine containing products: None Second hand tobacco smoke exposure: No How often do you have a drink containing alcohol: 4 or more times a week How many standard drinks containing alcohol do you have on a typical day: 1 or 2 How often do you have six or more drinks on one occasion: Never AUDIT-C Alcohol total score: 4 Non-prescribed substance use: denies use Caffeine: Yes How often does anyone, including family, friends and others, physically hurt you : never How often does anyone, including family, friends and others, insult or talk down to you: never How often does anyone, including family, friends and others, threaten you with harm: never How often does anyone, including family, friends and others, scream or curse at you: never service: Yes Meds Home Medications and Allergies Home Medications Medication Instructions Recorded Confirmed Type alendronate 10 mg tablet 10 mg PO DAILY 01/30/23 01/30/23 History alendronate 10 mg tablet 10 mg PO DAILY 01/30/23 01/30/23 History doxepin 10 mg capsule 10 mg PO QHS PRN 01/30/23 01/30/23 History eszopiclone 3 mg tablet 3 mg PO HS PRN 01/30/23 01/30/23 History eszopiclone 3 mg tablet 3 mg PO HS PRN 01/30/23 01/30/23 History hydrochlorothiazide 25 mg tablet 25 mg PO DAILY 01/30/23 01/30/23 History hydroxychloroquine 200 mg tablet 200 mg PO DAILY 01/30/23 01/30/23 History omeprazole 20 mg capsule,delayed 20 mg PO DAILY 01/30/23 01/30/23 History release simvastatin 20 mg tablet 20 mg PO QPM 01/30/23 01/30/23 History vortioxetine 20 mg tablet 20 mg PO DAILY 01/30/23 01/30/23 History Allergies Allergy/AdvReac Type Severity Reaction Status Date / Time Penicillins Allergy Verified 01/30/23 08:53 Exam Narrative: Exam Narrative: General: No acute distress. Awake alert oriented x3. Scleral icterus is present, possibly mild jaundice. Mild tremor. No asterixis. Disheveled. Smells of urine. HEENT: Normocephalic atraumatic, pupils equally round and reactive to light and accommodation. Oropharynx clear. Mucous membranes are dry. No cervical lymphadenopathy, thyromegaly or carotid bruits. No JVD. Cardiovascular: Regular rate and rhythm. No murmurs, gallops, or rubs. Chest: No increased work of breathing. Clear to auscultation bilaterally. No crackles or wheezes. Abdomen: Bowel sounds present. Soft, nondistended, nontender. No hepatosplenomegaly or masses. Extremities: No edema, no cyanosis or clubbing. Skin: No pallor, no rashes. Neuro: Grossly intact. No focal deficits. Const: Vital Signs, click to edit/add: Vital Signs - 24 hr 01/30/23 08:47 01/30/23 09:00 01/30/23 09:45 Temperature 96.3 F L Pulse Rate 105 H Pulse Rate [Left P ulse Oximeter] Pulse Rate [Pulse Oximeter] 115 H Respiratory Rate 18 Blood Pressure Blood Pressure [Ri ght Arm] Blood Pressure [Ri ght Upper Arm] 101/86 Pulse Oximetry 97 92 96 [facility] 01/30/23 10:00 01/30/23 10:02 01/30/23 10:03 Temperature Pulse Rate 104 H 107 H 106 H Pulse Rate [Left P ulse Oximeter] Pulse Rate [Pulse Oximeter] Respiratory Rate Blood Pressure 151/86 H Blood Pressure [Ri ght Arm] Blood Pressure [Ri ght Upper Arm] Pulse Oximetry 98 93 96 [facility] 01/30/23 10:15 01/30/23 10:43 01/30/23 10:45 Temperature Pulse Rate 107 H 104 H 109 H Pulse Rate [Left P ulse Oximeter] Pulse Rate [Pulse Oximeter] Respiratory Rate Blood Pressure Blood Pressure [Ri ght Arm] Blood Pressure [Ri ght Upper Arm] Pulse Oximetry 93 94 94 [facility] 01/30/23 11:00 01/30/23 11:02 01/30/23 11:15 Temperature Pulse Rate 106 H 104 H 102 H Pulse Rate [Left P ulse Oximeter] Pulse Rate [Pulse Oximeter] Respiratory Rate Blood Pressure 121/72 Blood Pressure [Ri ght Arm] Blood Pressure [Ri ght Upper Arm] Pulse Oximetry 96 94 95 Oxygen Delivery Me thod 01/30/23 11:30 01/30/23 11:31 01/30/23 11:45 Temperature Pulse Rate 101 H 102 H 103 H Pulse Rate [Left P ulse Oximeter] Pulse Rate [Pulse Oximeter] Respiratory Rate Blood Pressure 121/79 Blood Pressure [Ri ght Arm] Blood Pressure [Ri ght Upper Arm] Pulse Oximetry 98 95 98 Oxygen Delivery Nc thod 01/30/23 12:00 01/30/23 12:02 01/30/23 12:03 Temperature Pulse Rate 100 101 H 102 H Pulse Rate [Left P ulse Oximeter] Pulse Rate [Pulse Oximeter] Respiratory Rate Blood Pressure 120/79 Blood Pressure [Ri ght Arm] Blood Pressure [Ri ght Upper Arm] Pulse Oximetry 97 92 95 Oxygen Delivery Nc thod 01/30/23 12:15 01/30/23 12:30 01/30/23 12:31 Temperature Pulse Rate 102 H 103 H 98 Pulse Rate [Left P ulse Oximeter] Pulse Rate [Pulse Oximeter] Respiratory Rate Blood Pressure 120/72 Blood Pressure [Ri ght Arm] Blood Pressure [Ri ght Upper Arm] Pulse Oximetry 96 94 94 [facility] 01/30/23 12:45 01/30/23 13:00 01/30/23 13:02 Temperature Pulse Rate 100 100 100 Pulse Rate [Left P ulse Oximeter] Pulse Rate [Pulse Oximeter] Respiratory Rate Blood Pressure 124/71 Blood Pressure [Ri ght Arm] Blood Pressure [Ri ght Upper Arm] Pulse Oximetry 95 95 94 [facility] 01/30/23 13:03 01/30/23 13:15 01/30/23 13:32 Temperature Pulse Rate 98 101 H Pulse Rate [Left P ulse Oximeter] Pulse Rate [Pulse Oximeter] Respiratory Rate Blood Pressure 110/76 Blood Pressure [Ri ght Arm] Blood Pressure [Ri ght Upper Arm] Pulse Oximetry 96 93 Oxygen Delivery Nc thod 01/30/23 14:02 01/30/23 14:32 01/30/23 16:07 Temperature Pulse Rate Pulse Rate [Left P ulse Oximeter] 106 H Pulse Rate [Pulse Oximeter] Respiratory Rate 18 Blood Pressure 113/69 119/72 Blood Pressure [Ri ght Arm] 130/78 Blood Pressure [Ri ght Upper Arm] Pulse Oximetry 92 Oxygen Delivery Me thod Room Air Hospitalist - H&P: Result Labs Labs: Short CBC 01/30/23 Range/Units 09:22 WBC 8.50 (4.50-11.00) K/uL Hgb 13.6 (13.5-17.5) gm/dL Hct 39.6 (37.0-53.0) % Plt Count 321 (140-440) K/uL BMP 01/30/23 09:22 Sodium 132 L Potassium 3.4 L Chloride 87 L Carbon Dioxide 23 BUN 36 H Creatinine 1.1 Glucose 108 Calcium 9.9 Cardiac Enzymes 01/30/23 Range/Units 09:22 Troponin I 0.02 (0.01-0.04) ng/mL Liver Function 01/30/23 Range/Units 09:22 Total Bilirubin 2.7 H (0.1-1.5) mg/dL Direct Bilirubin 1.7 H (0.0-0.5) mg/dL AST 163 H (12-35) U/L ALT 103 H (4-50) U/L Alkaline Phosphatase 192 H (40-150) U/L Albumin 4.5 (3.3-5.0) g/dL 01/30/2023 EKG: Sinus tachycardia, heart rate 106 beats per minute, possible left atrial enlargement, low-voltage QRS, nonspecific ST abnormality, abnormal EKG. Ordering Physician: Stepan Jauregui M.D. Date of Service: 01/30/23 Procedure(s): CT abdomen pelvis w con Accession Number(s): [id number] cc: Stepan Jauregui M.D.; Provider,Not a Local~ For Patients: As a result of the 21st Century Cures Act, medical imaging exams and procedure reports are released immediately into your electronic medical record. You may view this report before your referring provider. If you have questions, please contact your health care provider. INDICATION: Abdominal pain, shortness of breath. COMPARISON: CT of the pelvis dated 08/07/2022. TECHNIQUE: CTA of the abdomen and pelvis with IV contrast. 116 cc of Isovue-370 administered. FINDINGS: Imaging obtained in the portal venous phase. A separate chest CT was obtained on same day likely with the same contrast bolus. Please see separate dictation. There is a small hiatal hernia containing small amount of fluid. Diffuse hepatic steatosis. Patent portal and hepatic veins. Patent splenic and mesenteric veins. No gallbladder distention. The spleen is normal in size. Adrenal glands appear unremarkable. The pancreas is normal in appearance. The iliac veins and IVC are patent. Atherosclerotic changes in the abdominal aorta without abdominal aortic aneurysm. Proximal visceral arteries appear patent. No free intraperitoneal air or fluid. Extensive fractures in the pelvis redemonstrated, incompletely healed. A serpiginous signal is seen in the bilateral femoral heads suggesting perhaps development of AVN of the bilateral femoral heads. No bowel obstruction. Appendix is normal. No colonic diverticulitis. The urinary bladder and prostate appears unremarkable. There is a mild compression deformity of the superior endplate of the L2 vertebral body and of the T11 vertebral body. IMPRESSION: 1. Severe diffuse hepatic steatosis. 2. 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 3. There is a mild compression deformity of the superior endplate of the L2 vertebral body and of the T11 vertebral body; correlate with point tenderness to terminate these fractures described seen trimester pelvic fractures are these could be more acute. Please note that all CT scans at this facility use dose modulation, iterative reconstruction, and/or weight-based dosing when appropriate to reduce radiation dose to as low as reasonably achievable. Dictated by Mendez Gracia MD @ 01/30/2023 12:45:20 PM (Electronically Signed) Ordering Physician: Stepan Jauregui M.D. Date of Service: 01/30/23 Procedure(s): CT chest w con Accession Number(s): [id number] cc: Stepan Jauregui M.D.; Provider,Not a Local~ For Patients: As a result of the Century Cures Act, medical imaging exams and procedure reports are released immediately into your electronic medical record. You may view this report before your referring provider. If you have questions, please contact your health care provider. INDICATION: Shortness of breath. Abdominal pain. TECHNIQUE: CT chest was acquired with 116 cc Isovue 370 IV contrast. COMPARISON: None. FINDINGS: Lungs and pleura: 4 mm solid right upper lobe nodule (3; 40). 4 mm solid right middle lobe nodule (3; 60). Benign calcified right lower lobe granuloma (2, 3; 63). No pleural effusions, pleural thickening, or pneumothorax. Heart and vasculature: Heart size is normal. Thoracic aorta and pulmonary artery are normal in caliber. Lymph nodes/mediastinum: No mediastinal, hilar, or axillary adenopathy. Chest wall: No masses. Upper abdomen: Small hiatus hernia containing homogeneous low-density fluid abutting the right lower thoracic esophagus. The fluid is not circumscribed to indicate a cystic lesion, for example. The significance of this finding in the acute setting is undetermined. Hepatic steatosis is also noted. Please refer to the separate abdominal CT report from the same day for a complete description of findings related to the upper abdominal viscera. Bones: Chronic healed contiguous rib fracture deformities of left ribs 3, 4 and 5. IMPRESSION: Fat and fluid containing right paraesophageal hiatus hernia, of undetermined clinical significance in the acute setting. As always, the significance of imaging findings should be correlated with the patient`s clinical status. Incidental 4 mm right upper lobe and right middle lobe solid pulmonary nodules for which consensus scan as recommend no routine ongoing imaging surveillance in the absence of a stab history of malignancy or clinical risk factors for lung cancer such as a history of smoking. If the latter, a 12 month follow-up chest CT is recommended. Please refer to the separate abdominal CT report from the same day for a complete description of findings related to the upper abdominal viscera. Please note that all CT scans at this facility use dose modulation, iterative reconstruction, and/or weight-based dosing when appropriate to reduce radiation dose to as low as reasonably achievable. Dictated by Isai Aguilar MD @ 01/30/2023 12:35:01 PM (Electronically Signed) Assessment and Plan Assessment and plan (1) Nausea & vomiting: Status: Acute (2) Acute hypotension: Status: Acute (3) Dehydration: Status: Acute (4) Hypovolemia: Status: Acute (5) Alcoholism: Status: Acute (6) Hepatic steatosis: Problem comment: 01/30/2023 CT abdomen and pelvis: Severe diffuse hepatic steatosis. Status: Acute (7) Pulmonary nodule: Problem comment: 01/30/2023 CT chest: Incidental 4 mm right upper lobe and right middle lobe solid pulmonary nodules for which consensus scan as recommend no routine ongoing imaging surveillance in the absence of a stab history of malignancy or clinical risk factors for lung cancer such as a history of smoking. If the latter, a 12 month follow-up chest CT is recommended. Status: Acute (8) Hiatal hernia: Status: Acute Assessment and Plan: 01/30/2023 CT chest: Fat and fluid containing right paraesophageal hiatus hernia, of undetermined clinical significance in the acute setting. As always, the significance of imaging findings should be correlated with the patient`s clinical status. (9) AVN of femur: Problem comment: 01/30/2023 CT abdomen and pelvis: Extensive pelvic fractures, as seen previously, but with new evidence of AVN in bilateral femoral heads. Status: Acute (10) Compression fracture: Problem comment: L2 and T11 Status: Acute Plan Vance has not had any emesis on the floor. I suspect he had a gastroenteritis versus acute alcoholic hepatitis or pancreatitis that is now improving, but since he was taking hydrochlorothiazide and not able to keep much down became lead dehydrated, hypovolemic and therefore hypotensive. He is mildly hypokalemic and I will also check a magnesium. Replace orally if possible, but may needs to IV if he is still nauseous. I am not seeing anything more concerning to indicate sepsis. White count is within normal limits, he has not been febrile common lactate is within normal limits. I am not finding source of infection. He got a dose of ertapenem in the ER which I will continue, but re- evaluate tomorrow before he gets the 2nd dose. He does have a hiatal hernia with fat pad or fluid containing area next to that. Difficult to know if that is of concern at this time. Will see how he does overnight. AVN of both femur heads for which he will likely need orthopedic consultation tomorrow. He endorses no back pain, so I think these compression fractures are likely asymptomatic or subacute or chronic. He is on alendronate, so I suspect these were already known. Will need follow-up as an outpatient for pulmonary nodules. Admit with clear liquid diet and IV fluids. Recheck labs in the morning. [facility] protocol as I suspect he will go through alcohol withdrawal. I spoke with him about alcohol use and have recommended quitting especially in light of elevated liver enzymes. Patient demonstrated understanding but said that it was his choice and he was not ready. He did start to talk about rehab toward the end of our conversation and so I will have social work see him tomorrow.
[2023-01-30] MEDS: THIAMINE 250 MG in 0.9 % SODIUM CHLORIDE 100 ml 100 ML 102.5 MG IVPB (17:24)
[2023-01-30] MEDS: OMEPRAZOLE 20 MG CAPSULE DR PO (17:33)
[2023-01-30] MEDS: LACTATED RINGERS 1000 ML 1,000 ML 125 ML IV (17:34)
[2023-01-30 17:44] LABS: Magnesium* 1.9 mg/dL (1.5-2.6)
[2023-01-30] MEDS: POTASSIUM CHLORIDE 10 MEQ/100 ML PIGGYBACK 100 MEQ IVPB (18:35)
[2023-01-30 18:46] LABS: Appearance Urine Clear (Clear); Bilirubin Urine 3+ (Negative); Blood Urine Negative (Negative); Color Urine Amber (Yellow); Glucose Urine Negative (Negative); Ketones Urine 2+ (Negative); Leukocyte Esterase Urine Negative (Negative); Nitrite Urine Negative (Negative); Protein Urine 2+ (Negative); Urobilinogen Urine >=8.0 (0.2-1.0)
[2023-01-30 18:56] LABS: Mucus Urine Few; RBC Urine 0-2 (0-2); WBC Urine 0-2 (0-5)
[2023-01-30 18:57] LABS: Amphetamine Screen Urine Negative (Negative); Barbiturate Screen Urine POSITIVE (Negative); Benzodiazepines Screen Urine Negative (Negative); Cannabinoid Screen Urine Negative (Negative); Cocaine Screen Urine Negative (Negative); Hyaline Casts Urine Few (None-Few); Methadone Screen Urine Negative (Negative); Methamphetamines Screen Urine Negative (Negative); Opiate Screen Urine Negative (Negative); Oxycodone Screen Urine Negative (Negative); Phencyclidine Screen Urine Negative (Negative); Tricyclic Antidepressant Urine Negative (Negative)
[2023-01-30] MEDS: THIAMINE 250 MG in 0.9 % SODIUM CHLORIDE 100 ml 100 ML 103 MG IVPB (20:52)
[2023-01-30] MEDS: ENOXAPARIN 40 MG/0.4 ML INJ SUBCUT (20:52)
[2023-01-30] MEDS: LORazepam 1 MG TABLET PO (22:04)
--- NOTE | 2023-01-30 22:51 | PC.NURSE ---
Shift [id number]- Patient denies pain or nausea. Tolerates clear liquid diet without issue- states hunger. He smells of urine- he is assisted out of soiled clothing and given bedside wash up this afternoon. While standing at bedside, he quickly states lightheadedness and needs to sit/lay back down. He uses urinal independently, but is also incontinent. Briefs on for incontinence. CIWAs below ativan administration threshhold per protocol. While falling asleep, saturations are mid 70s%-80s% RA. updated- O2 applied. Several bruises along the right side of his body (apparently) from previous falls at home.
[2023-01-30 23:10] LABS: HCO3 VBG 31 mmol/L (21-28); PCO2 VBG 49 mmHG (40-50); PO2 VBG 27.6 mmHG (25-47); pH VBG 7.416 (7.32-7.43)
[2023-01-31] VITALS (9 sets, daily range): BP systolic 82–150; BP diastolic 55–91; PULSE 89–111; RESP 18–20; TEMP 36.4–36.7; O2SAT 90–94
[2023-01-31] MEDS: OMEPRAZOLE 20 MG CAPSULE DR PO ×2 (06:35→16:51)
[2023-01-31] MEDS: LACTATED RINGERS 1000 ML 1,000 ML 125 ML IV ×3 (06:35→22:17)
[2023-01-31] MEDS: ONDANSETRON 2 MG/ML inj 4 MG IVP (06:44)
--- NOTE | 2023-01-31 06:51 | PC.NURSE ---
[id number]: Patient cooperative with cares. A&Ox3. Afebrile. PRN Zofran x1 or mild nausea. No emesis during shift. CIWA's unremarkable. Patient w/KAREL and w/o CPAP requiring 1.5 Lt O2 overnight. Removed while awake. C/o R. great toe and L. 2nd toe pain. Patient encouraged to ambulate to chair this a.m. but refused stating I don't think I am ready yet. Patient also verbalized the desire to discuss alcohol treatment options.
[2023-01-31 06:59] LABS: Basophils Absolute Auto 0.03 K/uL (0.00-0.30); Basophils Percent Auto 0.6 % (0.0-3.0); Eosinophils Absolute Auto 0.17 K/uL (0.00-0.50); Eosinophils Percent Auto 3.4 % (0.0-7.0); Hematocrit 32.4 % (37.0-53.0); Immature Granulocytes Abs Auto 0.08 K/uL (0.00-0.30); Immature Granulocytes Pct Auto 1.6 %; Lymphocytes Percent Auto 31.7 % (20-44); Mean Corpuscular HGB Conc 34 gm/dL (32-36); Mean Corpuscular Hemoglobin 33 pg (26-34); Mean Corpuscular Volume 99 fL (80-100); Monocytes Percent Auto 9.5 % (0.0-11.0); Neutrophils Absolute Auto 2.69 K/uL (1.7-7.0); Neutrophils Percent Auto 53.2 % (42.0-72.0); Platelet Count* 242 K/uL (140-440); RDW Coefficient of Variation % 12.7 % (11.5-15.5); Red Blood Count 3.29 m/uL (4.30-5.90); White Blood Count* 5.05 K/uL (4.50-11.00)
[2023-01-31 07:08] LABS: Slide Review Reflex No
[2023-01-31 07:14] LABS: Albumin* 3.4 g/dL (3.3-5.0); Chloride* 91 mmol/L (96-114); Sodium* 129 mmol/L (135-149)
[2023-01-31 07:15] LABS: Potassium* 3.1 mmol/L (3.6-5.1)
[2023-01-31 07:17] LABS: Bilirubin Total* 1.5 mg/dL (0.1-1.5); Est. Creatinine Clearance* 77.39; Estimated Glomerular Filt Rate 83 ml/min
[2023-01-31 07:18] LABS: Alanine Aminotransferase* 74 U/L (4-50); Alkaline Phosphatase* 145 U/L (40-150); Anion Gap 6 mEq/L (7-15); Aspartate Amino Transferase* 114 U/L (12-35); Blood Urea Nitrogen* 23 mg/dL (7-30); Calcium* 8.9 mg/dL (8.4-10.6); Carbon Dioxide* 32 mmol/L (20-32); Glucose* 89 mg/dL (60-115); Total Protein* 6.1 g/dL (6.0-8.3)
[2023-01-31 07:21] LABS: C Reactive Protein* 3.1 mg/dL (0.5-1.0)
[2023-01-31] MEDS: POTASSIUM BICARB 25 MEQ EFFERVESCENT TAB PO ×2 (08:27→10:24)
[2023-01-31] MEDS: MULTIVITAMIN/MINERALS 1 TABLET 1 TAB PO (08:46)
[2023-01-31] MEDS: FOLIC ACID 1 MG TABLET PO (08:46)
[2023-01-31] MEDS: THIAMINE 250 MG in 0.9 % SODIUM CHLORIDE 100 ml 100 ML 102.5 MG IVPB (09:05)
[2023-01-31] MEDS: ERTAPENEM 1 GM in 0.9 % SODIUM CHLORIDE Mini-bag 100 ML IVPB (11:39)
--- NOTE | 2023-01-31 13:05 | PC.NURSE ---
When aligner typewriter approached patient to ambulate before lunch he was able to go from seated to standing position with SBA though after taking a few steps exclaimed, I'm going to fall! Hospital Clinic Assistant had gait belt in place and was able to safely assist resident from standing position to seated position. Patient then rested though stated he felt too lightheaded to ambulate before lunch. Rest was then encouraged and lunch provided.
--- NOTE | 2023-01-31 14:02 | PC.NURSE ---
Shift note: Lung sounds noted to be clear to all lobes bilaterally and bowel sounds active in all four quadrants upon assessment. Patient has been on RA all shift with O2 sat ranging from 90-91%. No coughing noted or reported. Patient's sister has been visiting since before lunch today. Patient requested MD change diet order to regular this morning- ate well with 90% food intake for breakfast though only ate 25% of food intake for lunch. Knee high TEDs have been worn this shift as well as SCDs when in bed. Patient c/o feeling lightheaded when staff encouraged ambulation with staff assist before lunch. B/P of 106/61 had been noted just before ambulation. Rest was then encouraged and lunch was provided. Patient was unable to safely ambulate before lunch. [employer] Supervisor spoke with OT to provide update of pt's c/o lightheadedness before OT sees resident for afternoon therapy session. CIWA score of 1-2 has been noted throughout the shift as resident has had mild nausea which MD Fung is aware of.
--- NOTE | 2023-01-31 14:11 | PC.NURSE ---
Patient denying nausea after lunch when asked and has had no emesis noted or reported throughout the shift.
--- NOTE | 2023-01-31 14:52 | PC.NURSE ---
Porcelain Mixer approached resident this afternoon to assist him with washing up and changing gown though he refused stating, I'm going home tomorrow. The doctor was by this afternoon. 100 mL urine in Urinal emptied. Fluids encouraged as urine noted to be nolvia in color. SCDs remain worn when resident in bed. Resident having afternoon watermelon snack provided by sister.
--- NOTE | 2023-01-31 17:29 | PC.NURSE ---
PATIENT PLEASANT AND COOPERATIVE, TOLERATING REGULAR DIET, DECLINING PAIN THIS AFTERNOON, 1.5L VIA NC APPLIED WITH NAP.
--- NOTE | 2023-01-31 18:00 | PM.IMPN1 ---
Progress Note: A&P Assessment and plan (1) Dehydration: Status: Acute (2) Hiatal hernia: Status: Acute (3) Pulmonary nodule: Problem details: 01/30/2023 CT chest: Incidental 4 mm right upper lobe and right middle lobe solid pulmonary nodules for which consensus scan as recommend no routine ongoing imaging surveillance in the absence of a stab history of malignancy or clinical risk factors for lung cancer such as a history of smoking. If the latter, a 12 month follow-up chest CT is recommended. Status: Acute (4) Hepatic steatosis: Problem details: 01/30/2023 CT abdomen and pelvis: Severe diffuse hepatic steatosis. Status: Acute (5) Alcoholism: Status: Acute (6) AVN of femur: Problem details: 01/30/2023 CT abdomen and pelvis: Extensive pelvic fractures, as seen previously, but with new evidence of AVN in bilateral femoral heads. - I have a call out to ortho to get recommendations regarding this Status: Acute (7) Compression fracture: Problem details: L2 and T11 Status: Acute (8) Hypovolemia: Status: Acute (9) Acute hypotension: Status: Resolved (10) Nausea & vomiting: Status: Acute Plan Nausea and vomiting are improving. I agree with advancing diet today since patient is declining EGD. Hypovolemia is improving and acute hypotension had resolved. Since patient is still dizzy this afternoon will check orthostatic blood pressures. Await orthopedic recommendations for AVN. Social work to see to give resources for outpatient treatment of alcoholism. Subjective Time Seen by Provider: 09:07 Date Seen: 01/31/23 Interval history: Vance said he did well with therapy this morning, but has been having dizziness this afternoon any time he gets up to walk. CIWA scores have been low. His sister was there today as well and was hoping he could stay tonight yet. Vance says that he would like to do rehab and he is not yet spoken with our social service coordinator about resources for this. He has not vomited during this hospital stay, but he does continue to feel nauseous. Declines EGD this morning in hopes to eat and advance diet. Exam Narrative: Exam Narrative: General: No acute distress. Awake alert oriented x3. Scleral icterus improving. No jaundice. Cardiovascular: Regular rate and rhythm. No murmurs, gallops, or rubs. Chest: No increased work of breathing. Clear to auscultation bilaterally. No crackles or wheezes. Abdomen: Bowel sounds present. Soft, nondistended, nontender. No hepatosplenomegaly or masses. I watched him ambulate in the hallway with a walker with PT this morning, and he did well. Const: Vital Signs, click to edit/add: Vital Signs - 24 hr 01/30/23 19:05 01/30/23 19:05 01/30/23 19:43 Temperature 97.6 F Pulse Rate [Left P ulse Oximeter] 102 H Respiratory Rate 18 Blood Pressure [Le ft Arm] Blood Pressure [Ri ght Arm] 126/72 Pulse Oximetry 91 91 Oxygen Delivery Me thod Room Air Oxygen Flow Rate 01/30/23 23:00 01/30/23 23:00 01/30/23 23:00 Temperature 97.8 F Pulse Rate [Left P ulse Oximeter] 94 Respiratory Rate 18 18 Blood Pressure [Le ft Arm] Blood Pressure [Ri ght Arm] 135/66 Pulse Oximetry 94 94 94 Oxygen Delivery Me thod OxyMask OxyMask Oxygen Flow Rate 1.5 1.5 01/30/23 23:31 01/31/23 02:52 01/31/23 02:52 Temperature 97.8 F 98.1 F 98.1 F Pulse Rate [Left P ulse Oximeter] 94 89 89 Respiratory Rate 18 20 20 Blood Pressure [Le ft Arm] Blood Pressure [Ri ght Arm] 135/66 112/76 112/76 Pulse Oximetry 94 94 94 Oxygen Delivery Me thod OxyMask Nasal Cannula Nasal Cannula Oxygen Flow Rate 1.5 1.0 1.0 01/31/23 07:00 01/31/23 07:00 01/31/23 07:00 Temperature 97.5 F L Pulse Rate [Left P ulse Oximeter] 95 Respiratory Rate 20 20 Blood Pressure [Le ft Arm] 114/64 Blood Pressure [Ri ght Arm] Pulse Oximetry 91 91 91 Oxygen Delivery Me thod Room Air Room Air Oxygen Flow Rate 01/31/23 11:00 01/31/23 11:00 01/31/23 15:00 Temperature 97.9 F 97.9 F Pulse Rate [Left P ulse Oximeter] 96 96 105 H Respiratory Rate 18 18 18 Blood Pressure [Le ft Arm] 106/61 106/61 Blood Pressure [Ri ght Arm] 111/79 Pulse Oximetry 90 91 Oxygen Delivery Me thod Room Air Room Air Room Air Oxygen Flow Rate 01/31/23 15:00 01/31/23 15:00 01/31/23 15:00 Temperature Pulse Rate [Left P ulse Oximeter] Respiratory Rate 18 18 Blood Pressure [Le ft Arm] Blood Pressure [Ri ght Arm] Pulse Oximetry 91 91 Oxygen Delivery Me thod Room Air Oxygen Flow Rate Labs Labs: Laboratory Results - last 24 hr 01/30/23 01/30/23 01/31/23 18:40 23:05 06:50 WBC 5.05 RBC 3.29 L Hgb 11.0 L Hct 32.4 L MCV 99 MCH 33 MCHC 34 RDW Coeff of Shayy 12.7 Plt Count 242 Neut % (Auto) 53.2 Lymph % (Auto) 31.7 [place] % (Auto) 9.5 Eos % (Auto) 3.4 Baso % (Auto) 0.6 Neut # (Auto) 2.69 Lymph # (Auto) 1.60 [place] # (Auto) 0.50 Eos # (Auto) 0.17 Baso # (Auto) 0.03 Abs Immat Gran (auto) 0.08 Imm/Tot Granulo (auto) 1.6 VBG pH 7.416 VBG pCO2 49 VBG pO2 27.6 VBG HCO3 31 H Sodium 129 L Potassium 3.1 L Chloride 91 L Carbon Dioxide 32 Anion Gap 6 L BUN 23 Creatinine 1.0 Estimated Creat Clear 77.39 Estimated GFR 83 Glucose 89 Calcium 8.9 Total Bilirubin 1.5 AST 114 H ALT 74 H Alkaline Phosphatase 145 C-Reactive Protein 3.1 H Total Protein 6.1 Albumin 3.4 Urine Color Irene A Urine Appearance Clear Urine pH 6.0 Ur Specific Lookout 1.010 Urine Protein 2+ A Urine Glucose (UA) Negative Urine Ketones 2+ A Urine Blood Negative Urine Nitrite Negative Urine Bilirubin 3+ A Urine Urobilinogen >=8.0 A Ur Leukocyte Esterase Negative Urine RBC 0-2 Urine WBC 0-2 Ur Squamous Epith Cells None Urine Bacteria None Hyaline Casts Few Urine Mucus Few A Urine Opiates Screen Negative Ur Oxycodone Screen Negative Urine Methadone Screen Negative Ur Propoxyphene Screen Negative Ur Barbiturates Screen POSITIVE A U Tricyclic Antidepress Negative Ur Phencyclidine Scrn Negative Ur Amphetamines Screen Negative U Methamphetamines Scrn Negative U Benzodiazepines Scrn Negative Urine Cocaine Screen Negative U Marijuana (THC) Screen Negative Ur Drug Screen Comment See Note
[2023-01-31] MEDS: ENOXAPARIN 40 MG/0.4 ML INJ SUBCUT (21:03)
[2023-01-31] MEDS: LORazepam 1 MG TABLET PO (21:03)
[2023-02-01 03:00] VITALS: BP 112/70; PULSE 93; RESP 20; TEMP 36.6; O2SAT 95
[2023-02-01] MEDS: LACTATED RINGERS 1000 ML 1,000 ML 125 ML IV (05:57)
[2023-02-01] MEDS: OMEPRAZOLE 20 MG CAPSULE DR PO (06:01)
--- NOTE | 2023-02-01 06:53 | PC.NURSE ---
End of shift: A&O, cooperative throughout shift. Pt hypotensive, orthostatic blood pressures done. MD updated, no change. Pt asymptomatic with lower BPs. Hx of sleep apnea. 1.5 L O2 placed on pt overnight. x1 episode of inc loose stool otherwise uses urinal at bedside. CWAS unremarkable. Bed alarm in place. ?
[2023-02-01 07:26] VITALS: BP 110/65; PULSE 100; RESP 18; TEMP 36.6; O2SAT 95
[2023-02-01 07:27] VITALS: RESP 18; O2SAT 95
--- NOTE | 2023-02-01 08:02 | PC.NURSE ---
PATIENT NOTED TO HAVE ONE LARGE INCONTINENT BM AT THIS TIME. DARRIUS CARES AND BRIEF CHANGE PROVIDED BY STAFF. NEW PAIR OF MICHELLE STOCKINGS OBTAINED PREVIOUS PAIR HAD BECOME SOILED WITH STOOL. PATIENT EATING BREAKFAST AT THIS TIME.
[2023-02-01] MEDS: FOLIC ACID 1 MG TABLET PO (08:35)
[2023-02-01] MEDS: THIAMINE 100 MG TABLET 250 MG PO (08:35)
[2023-02-01] MEDS: MULTIVITAMIN/MINERALS 1 TABLET 1 TAB PO (08:35)
[2023-02-01 09:11] VITALS: BP 114/63; BP 83/50; BP 93/58; PULSE 105; PULSE 106; PULSE 116
--- NOTE | 2023-02-01 09:14 | PC.NURSE ---
DAILY ORTHOSTATIC BLOOD PRESSURES COMPLETED: LYING B/P 114/63 WITH PULSE OF 106, SITTING B/P 93/58 WITH PULSE OF 105 AND STANDING B/P OF 83/[address] P[address] MERCADO UPDATED REGARDING PATIENT'S ORTHOSTATIC HYPOTENSION NOTED WELL HIS RECENT LOOSE STOOLS: 1 ON NOC SHIFT AND [address] ON [address]IFT SO FAR. [address] MERCADO HAS GIVEN ORDER TO COLLECT STOOL SAMPLE TO TEST FOR C. DIFFICILE. PATIENT UPDATED.
[2023-02-01] MEDS: LACTATED RINGERS 1000 ML 1,000 ML 500 ML IV (09:25)
[2023-02-01 10:10] LABS: Chloride* 98 mmol/L (96-114); Potassium* 4.1 mmol/L (3.6-5.1); Sodium* 136 mmol/L (135-149)
[2023-02-01 10:13] LABS: Anion Gap 3 mEq/L (7-15); Blood Urea Nitrogen* 19 mg/dL (7-30); Carbon Dioxide* 35 mmol/L (20-32)
[2023-02-01 10:14] LABS: Glucose* 104 mg/dL (60-115)
[2023-02-01 10:29] LABS: Creatinine* 0.9 mg/dL (0.5-1.5); Est. Creatinine Clearance* 77.39; Estimated Glomerular Filt Rate 94 ml/min
[2023-02-01 11:11] VITALS: BP 112/62; PULSE 96; RESP 18; TEMP 36.6; O2SAT 97
[2023-02-01 13:08] VITALS: BP 108/58; BP 110/62; BP 119/67; PULSE 102; PULSE 104; PULSE 110
[2023-02-01] MEDS: SODIUM CHLORIDE 0.9 % (FLUSH) 10 ML SYRINGE 5 ML IVF (13:30)
--- NOTE | 2023-02-01 13:39 | PC.NURSE ---
ORTHOSTATIC BLOOD PRESSURE ASSESSMENT REPEATED THIS AFTERNOON PER MD MERCADO. LYING B/P NOTED TO BE 119/67 WITH PULSE OF 102, SITTING B/P 110/62 WITH PULSE OF 104 AND STANDING B/P OF 108/58 WITH PULSE OF 110. 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
--- NOTE | 2023-02-01 13:47 | P.DS_ITS ---
DS: Providers Provider Time Seen by Provider: 09:30 Date Seen: 02/01/23 Date of admission: 01/31/23 16:34 Primary care physician: Not a Local Provider Admitting Clinician: Tri Fung MD Consults: 01/30/23 15:42 Consult to Physical Therapy [CONS] Routine Comment: Reason(s) for PT Consult:: Evaluate and Treat Any Restrictions?:: No Restrictions Consult to Reference Services Head [CONS] Routine Comment: Reason for Consult:: Social Service Consult 01/30/23 15:47 Consult to Occupational Therapy [CONS] Routine Comment: Reason(s) for OT Consult:: Evaluate and Treat Any Restrictions?:: No Restrictions Attending Physician on discharge: Tri Fung MD Date of Discharge: 02/01/23 DS: Diagnosis Discharge Diagnosis (1) Acute hypotension: Status: Resolved (2) Hypovolemia: Status: Resolved (3) Compression fracture: Status: Acute Problem details: L2 and T11 (4) AVN of femur: Status: Acute Problem details: 01/30/2023 CT abdomen and pelvis: Extensive pelvic fractures, as seen previously, but with new evidence of AVN in bilateral femoral heads. - Ortho said he was okay to ambulate as tolerated and follow up with Ortho as previously scheduled as an outpatient. (5) Alcoholism: Status: Acute (6) Hepatic steatosis: Status: Acute Problem details: 01/30/2023 CT abdomen and pelvis: Severe diffuse hepatic steatosis. (7) Pulmonary nodule: Status: Acute Problem details: 01/30/2023 CT chest: Incidental 4 mm right upper lobe and right middle lobe solid pulmonary nodules for which consensus scan as recommend no routine ongoing imaging surveillance in the absence of a stab history of malignancy or clinical risk factors for lung cancer such as a history of smoking. If the latter, a 12 month follow-up chest CT is recommended. (8) Dehydration: Status: Resolved (9) Hiatal hernia: Status: Acute (10) Nausea & vomiting: Status: Resolved DS: Summary Hospital Course Hospital Course: This is a 67-year-old male with a history of heavy alcohol use who had a pelvic fracture in July from falling down the stairs while under the influence of alcohol who presented through the ER for concerns of 8 days of vomiting. He continued to take his hydrochlorothiazide through that time and then felt dizzy, was unable to get the bathroom, was therefore incontinent of urine, and had several falls over the last 2 days. When EMS arrived his blood pressures were in the 60s. He got fluids and by the time he got to the ER hypotension had resolved. On evaluation he was found to have AVN of both femoral heads. I spoke with Ortho about this and they reviewed this study. They recommended weight-bearing as tolerated and follow-up with outpatient Ortho as he previously had scheduled at the [facility] on 02/07/2023. He did not have any vomiting here and chose to eat instead of undergoing EGD. He tolerated a regular diet well. He had been on ertapenem for 2 doses due to concern for possible sepsis (considered as a diagnosis in light of hypotension). I found no evidence of infection and ertapenem was discontinued. He had symptomatic orthostatic hypotension for which he got further boluses of IV fluids and today his orthostatics are improved after fluid bolus. He was evaluated by PT and OT and is able to ambulate independently with a walker. I spoke with him extensively about use and have recommended quitting. It is unclear why he had nausea and vomiting for 8 days, but this had resolved and I suspected was at least impart related to alcohol use which he is now going to try to avoid. We have given him resources for outpatient alcohol rehabilitation and I have encouraged him to follow-up on that. He is already on alendronate for osteoporosis and he is not experiencing any pain from compression fractures, so I did not add any medications for that. Overnight last night he started having diarrhea for which we tried to obtain a C diff stool sample, but he has not had any more stool for us to obtain that. We are sending the kit home with him to collect a sample. He is discharged in stable and improved condition. Time Spent with Patient Time attestation: Total time spent providing and/or coordinating discharge services: Exam Narrative: Exam Narrative: General: No acute distress. Awake alert oriented x3. Scleral icterus improving. No jaundice. Cardiovascular: Regular rate and rhythm. No murmurs, gallops, or rubs. Chest: No increased work of breathing. Clear to auscultation bilaterally. No crackles or wheezes. Abdomen: Bowel sounds present. Soft, nondistended, nontender. No hepatosplenomegaly or masses. I watched him ambulate in the hallway with a walker with PT this morning, and he did well. Const: Vital Signs, click to edit/add: Vital Signs - 24 hr 01/31/23 15:00 01/31/23 15:00 01/31/23 15:00 Temperature Pulse Rate [Left P ulse Oximeter] 105 H Pulse Rate [orthos tatic lying Pulse Oximeter] Pulse Rate [orthos tatic sitting Puls e Oximeter] Pulse Rate [orthos tatic standing] Respiratory Rate 18 18 Blood Pressure [Le ft Arm] Blood Pressure [Ri ght Arm] 111/79 Blood Pressure [or thostatic lying Le ft Arm] Blood Pressure [or thostatic sitting] Blood Pressure [or thostatic standing ] Pulse Oximetry 91 91 Oxygen Delivery Me thod Room Air Oxygen Flow Rate 01/31/23 15:00 01/31/23 19:49 01/31/23 19:55 Temperature 97.9 F 97.9 F Pulse Rate [Left P ulse Oximeter] 101 H 101 H Pulse Rate [orthos tatic lying Pulse Oximeter] Pulse Rate [orthos tatic sitting Puls e Oximeter] Pulse Rate [orthos tatic standing] Respiratory Rate 18 18 18 Blood Pressure [Le ft Arm] 102/57 L 102/57 L Blood Pressure [Ri ght Arm] 111/79 Blood Pressure [or thostatic lying Le ft Arm] Blood Pressure [or thostatic sitting] Blood Pressure [or thostatic standing ] Pulse Oximetry 91 92 92 Oxygen Delivery Me thod Room Air Nasal Cannula Nasal Cannula Oxygen Flow Rate 1.5 1.5 01/31/23 20:15 01/31/23 20:55 01/31/23 23:00 Temperature Pulse Rate [Left P ulse Oximeter] 106 H 97 Pulse Rate [orthos tatic lying Pulse Oximeter] 101 H Pulse Rate [orthos tatic sitting Puls e Oximeter] 109 H Pulse Rate [orthos tatic standing] 111 H Respiratory Rate 18 Blood Pressure [Le ft Arm] 150/91 H 102/56 L Blood Pressure [Ri ght Arm] Blood Pressure [or thostatic lying Le ft Arm] 102/57 L Blood Pressure [or thostatic sitting] 92/64 Blood Pressure [or thostatic standing ] 82/55 L Pulse Oximetry 93 Oxygen Delivery Me thod Nasal Cannula Oxygen Flow Rate 1.5 01/31/23 23:00 01/31/23 23:00 01/31/23 23:00 Temperature Pulse Rate [Left P ulse Oximeter] 97 Pulse Rate [orthos tatic lying Pulse Oximeter] Pulse Rate [orthos tatic sitting Puls e Oximeter] Pulse Rate [orthos tatic standing] Respiratory Rate 18 18 Blood Pressure [Le ft Arm] 102/56 L Blood Pressure [Ri ght Arm] 111/79 Blood Pressure [or thostatic lying Le ft Arm] Blood Pressure [or thostatic sitting] Blood Pressure [or thostatic standing ] Pulse Oximetry 93 93 93 Oxygen Delivery Me thod Nasal Cannula Nasal Cannula Oxygen Flow Rate 1.5 1.5 02/01/23 03:00 02/01/23 03:00 02/01/23 07:26 Temperature 97.9 F 97.8 F Pulse Rate [Left P ulse Oximeter] 93 93 100 Pulse Rate [orthos tatic lying Pulse Oximeter] Pulse Rate [orthos tatic sitting Puls e Oximeter] Pulse Rate [orthos tatic standing] Respiratory Rate 20 20 18 Blood Pressure [Le ft Arm] 110/65 Blood Pressure [Ri ght Arm] 112/70 112/70 Blood Pressure [or thostatic lying Le ft Arm] Blood Pressure [or thostatic sitting] Blood Pressure [or thostatic standing ] Pulse Oximetry 95 95 95 Oxygen Delivery Me thod Nasal Cannula Nasal Cannula Room Air Oxygen Flow Rate 2 2 02/01/23 07:27 02/01/23 09:11 02/01/23 11:11 Temperature 97.8 F Pulse Rate [Left P ulse Oximeter] 96 Pulse Rate [orthos tatic lying Pulse Oximeter] 106 H Pulse Rate [orthos tatic sitting Puls e Oximeter] 105 H Pulse Rate [orthos tatic standing] 116 H Respiratory Rate 18 18 Blood Pressure [Le ft Arm] 112/62 Blood Pressure [Ri ght Arm] Blood Pressure [or thostatic lying Le ft Arm] 114/63 Blood Pressure [or thostatic sitting] 93/58 L Blood Pressure [or thostatic standing ] 83/50 L Pulse Oximetry 95 97 Oxygen Delivery Me thod Room Air Room Air Oxygen Flow Rate 02/01/23 13:08 Temperature Pulse Rate [Left P ulse Oximeter] Pulse Rate [orthos tatic lying Pulse Oximeter] 102 H Pulse Rate [orthos tatic sitting Puls e Oximeter] 104 H Pulse Rate [orthos tatic standing] 110 H Respiratory Rate Blood Pressure [Le ft Arm] Blood Pressure [Ri ght Arm] Blood Pressure [or thostatic lying Le ft Arm] 119/67 Blood Pressure [or thostatic sitting] 110/62 Blood Pressure [or thostatic standing ] 108/58 L Pulse Oximetry Oxygen Delivery Me thod Oxygen Flow Rate DS: Data Data Completed and Pending Completed studies during hospitalization: 01/30/2023 EKG: Sinus tachycardia, 106 beats per minute, possible left atrial enlargement. Ordering Physician: Stepan Jauregui M.D. Date of Service: 01/30/23 Procedure(s): CT abdomen pelvis w con Accession Number(s): [id number] cc: Stepan Jauregui M.D.; Provider,Not a Local~ For Patients: As a result of the Cures Act, medical imaging exams and procedure reports are released immediately into your electronic medical record. You may view this report before your referring provider. If you have questions, please contact your health care provider. INDICATION: Abdominal pain, shortness of breath. COMPARISON: CT of the pelvis dated 08/07/2022. TECHNIQUE: CTA of the abdomen and pelvis with IV contrast. 116 cc of Isovue-370 administered. FINDINGS: Imaging obtained in the portal venous phase. A separate chest CT was obtained on same day likely with the same contrast bolus. Please see separate dictation. There is a small hiatal hernia containing small amount of fluid. Diffuse hepatic steatosis. Patent portal and hepatic veins. Patent splenic and mesenteric veins. No gallbladder distention. The spleen is normal in size. Adrenal glands appear unremarkable. The pancreas is normal in appearance. The iliac veins and IVC are patent. Atherosclerotic changes in the abdominal aorta without abdominal aortic aneurysm. Proximal visceral arteries appear patent. No free intraperitoneal air or fluid. Extensive fractures in the pelvis redemonstrated, incompletely healed. A serpiginous signal is seen in the bilateral femoral heads suggesting perhaps development of AVN of the bilateral femoral heads. No bowel obstruction. Appendix is normal. No colonic diverticulitis. The urinary bladder and prostate appears unremarkable. There is a mild compression deformity of the superior endplate of the L2 vertebral body and of the T11 vertebral body. IMPRESSION: 1. Severe diffuse hepatic steatosis. 2. 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 3. There is a mild compression deformity of the superior endplate of the L2 vertebral body and of the T11 vertebral body; correlate with point tenderness to terminate these fractures described seen trimester pelvic fractures are these could be more acute. Please note that all CT scans at this facility use dose modulation, iterative reconstruction, and/or weight-based dosing when appropriate to reduce radiation dose to as low as reasonably achievable. Dictated by Mendez Gracia MD @ 01/30/2023 12:45:20 PM (Electronically Signed) Ordering Physician: Stepan Jauregui M.D. Date of Service: 01/30/23 Procedure(s): CT chest w con Accession Number(s): [id number] cc: Stepan Jauregui M.D.; Provider,Not a Local~ For Patients: As a result of the Cures Act, medical imaging exams and procedure reports are released immediately into your electronic medical record. You may view this report before your referring provider. If you have questions, please contact your health care provider. INDICATION: Shortness of breath. Abdominal pain. TECHNIQUE: CT chest was acquired with 116 cc Isovue 370 IV contrast. COMPARISON: None. FINDINGS: Lungs and pleura: 4 mm solid right upper lobe nodule (3; 40). 4 mm solid right middle lobe nodule (3; 60). Benign calcified right lower lobe granuloma (2, 3; 63). No pleural effusions, pleural thickening, or pneumothorax. Heart and vasculature: Heart size is normal. Thoracic aorta and pulmonary artery are normal in caliber. Lymph nodes/mediastinum: No mediastinal, hilar, or axillary adenopathy. Chest wall: No masses. Upper abdomen: Small hiatus hernia containing homogeneous low-density fluid abutting the right lower thoracic esophagus. The fluid is not circumscribed to indicate a cystic lesion, for example. The significance of this finding in the acute setting is undetermined. Hepatic steatosis is also noted. Please refer to the separate abdominal CT report from the same day for a complete description of findings related to the upper abdominal viscera. Bones: Chronic healed contiguous rib fracture deformities of left ribs 3, 4 and 5. IMPRESSION: Fat and fluid containing right paraesophageal hiatus hernia, of undetermined clinical significance in the acute setting. As always, the significance of imaging findings should be correlated with the patient`s clinical status. Incidental 4 mm right upper lobe and right middle lobe solid pulmonary nodules for which consensus scan as recommend no routine ongoing imaging surveillance in the absence of a stab history of malignancy or clinical risk factors for lung cancer such as a history of smoking. If the latter, a 12 month follow-up chest CT is recommended. Please refer to the separate abdominal CT report from the same day for a complete description of findings related to the upper abdominal viscera. Please note that all CT scans at this facility use dose modulation, iterative reconstruction, and/or weight-based dosing when appropriate to reduce radiation dose to as low as reasonably achievable. Dictated by Isai Aguilar MD @ 01/30/2023 12:35:01 PM (Electronically Signed) Labs on day of discharge: Labs from last 24 hours 02/01/23 09:42 Sodium 136 Potassium 4.1 Chloride 98 Carbon Dioxide 35 H Anion Gap 3 L BUN 19 Creatinine 0.9 Estimated Creat Clear 77.39 Estimated GFR 94 Glucose 104 Calcium 9.0 Preliminary micro results at discharge 01/30/23 09:22 Blood Culture - Preliminary Blood NO GROWTH AFTER 48 HOURS 01/30/23 09:14 Blood Culture - Preliminary Blood NO GROWTH AFTER 48 HOURS Discharge Plan Discharge Disposition: Home, Self-Care Date of Admission: 01/31/23 16:34 Attending Provider on Discharge: Tri Fung Primary Care Provider: Provider,Not a Local Condition: Improved Anticipated Discharge Date/Time: 02/01/23 14:18 Discharge Medications: New folic acid 1 mg Tablet 1 mg PO DAILY Qty: 30 0RF thiamine mononitrate (vit B1) [Vitamin B-1 (mononitrate)] 100 mg Tablet 250 mg PO DAILY Qty: 30 0RF multivitamin with folic acid [Thera] 400 mcg Tablet 1 tab PO DAILY Qty: 30 0RF Continued simvastatin 20 mg tablet 20 mg PO QPM hydroxychloroquine 200 mg tablet 200 mg PO DAILY vortioxetine 20 mg tablet 20 mg PO DAILY omeprazole 20 mg capsule,delayed release(DR/EC) 20 mg PO DAILY doxepin 10 mg capsule 10 mg PO QHS PRN alendronate 10 mg tablet 10 mg PO DAILY eszopiclone 3 mg tablet 3 mg PO HS PRN Held hydrochlorothiazide 25 mg tablet 25 mg PO DAILY Hold Instructions: Resume on 02/08/23. Hold this until you have seen your primary care provider. Monitor your blood pressures daily at home and bring that information to your primary care provider. Discharge Orders: Discharge Order (Routine); Ordered 02/01/23 Ordered By: Tri Fung Patient Education: Acute Diarrhea (ED), Alcohol Dependence (DC) Additional Instructions: - Avoid all alcohol use. - I recommend you enroll in outpatient alcohol rehab. - Follow up with your PCP at the [facility] in 1 week. You will need follow up for pulmonary nodules and hepatic steatosis. Please ask your provider to request records from our facility so he can discuss the follow up for these with you. - Keep your appointment with [facility] on 02/07/2023 for AVN of bilateral femoral heads. Activity Level: Activity as Tolerated and Use Walker Discharge Diet: Regular Follow Up Appointments: Provider,Not a Local [Primary Care Provider] - Forms: [employer] Info Instructions
--- NOTE | 2023-02-01 16:35 | PC.NURSE ---
Pt awaiting discharges paperwork. IV removed;catheter intact. Discharge paperwork complete and discharged home with sister.
== END 2023-02-01 16:10 | disposition home or self-care (01) ==
LOC: ED 09:36 → MEDSURG 01-31 17:18
PROVIDERS: Family Medicine; Admitting Provider Family Medicine; Emergency Provider Family Medicine; Visit Provider Family Medicine
DX: K76.0 Fatty (change of) liver, not elsewhere classified (principal); I95.9 Hypotension, unspecified; E86.1 Hypovolemia; M87.059 Idiopathic aseptic necrosis of unspecified femur; R91.1 Solitary pulmonary nodule; E87.6 Hypokalemia; R00.0 Tachycardia, unspecified; R74.01 Elevation of levels of liver transaminase levels; R11.10 Vomiting, unspecified; R11.0 Nausea; E86.0 Dehydration; I10 Essential (primary) hypertension; F10.20 Alcohol dependence, uncomplicated; E78.5 Hyperlipidemia, unspecified; M19.90 Unspecified osteoarthritis, unspecified site; K21.9 Gastro-esophageal reflux disease without esophagitis; K44.9 Diaphragmatic hernia without obstruction or gangrene; G47.00 Insomnia, unspecified; R32 Unspecified urinary incontinence; R42 Dizziness and giddiness; R05.9 Cough, unspecified; R19.7 Diarrhea, unspecified; R10.9 Unspecified abdominal pain; S32.9XXA Fracture of unspecified parts of lumbosacral spine and pelvis, initial encounter for closed fracture; F43.10 Post-traumatic stress disorder, unspecified; F17.210 Nicotine dependence, cigarettes, uncomplicated; W19.XXXA Unspecified fall, initial encounter; R29.6 Repeated falls; Z87.81 Personal history of (healed) traumatic fracture
CPT/HCPCS: 36415; 71260; 74177; 80048; 80053; 80076; 80143; 80179; 80306; 81001; 82077; 82150; 82803; 83605; 83735; 83880; 84484; 85025; 85610; 85730; 86140; 87040; 87086; 87493; 87631; 93005; 94761; 96361; 96365; 96366; 96367; 96368; 96372; 96375; 97116; 97161; 97165; 97530; 97535; 99285; A9153; A9270; C9113; G0378; J1335; J1650; J2405; J2560; J3411; J3480; J7030; J7120; Q9967

== ENCOUNTER 2023-09-22 09:34 | Outpatient (CLI) | payer MEDICARE, OTHER, SELFPAY ==
--- OUTSIDE RECORDS SUMMARY | 2023-09-23 17:08 | XMS_ITS | Continuity of Care Document ---
Author Name [facility] Organization [facility] Care Team Providers Care Leisure Studies Professor Name Role Phone [facility] Unavailable Unavailable Problems Combined list of problems from 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 It does not include entries that were removed or entered in error. Problem Status Onset Date Problem Type Date of Resolution Comments Source Exposure to potentially hazardous substance ([facility] [id number]) Active 024 Condition Jul 20, 2023 Entered By: TRIXIE W[place] Comment: [facility] Documentation Initiative [facility] visit for: examination of subpopulation Active Condition DoD astigmatism regular Active Condition Do D refractive error - myopia Active Condition DoD visit for: services physical demobilization Active Condition DoD assessment of patient condition work-related Active Condition Do D Need For Vaccination Against Influenza Inactive Condition DoD visit for: screening exam pulmonary tuberculosis Inactive Condition DoD conditions influencing health status Active Condition DoD hypertension systemic Active Condition DoD hearing loss Active Condition DoD hyperlipidemia Active Condition DoD Blood Pressure Isolated Elevated Active Condition DoD visit for: ears / hearing exam Active Condition [facility] visit for: services physical Active Condition DoD tobacco use Inactive Condition DoD joint stiffness of the knee Inactive Condition DoD joint pain, localized in the knee Inactive Condition DoD pain in leg lower Active Condition DoD nicotine dependence Active Condition Do D X-Ray Hands Soft Tissue Swelling Inactive Condition DoD Cataract nos [facility] Compression fracture of thoracic spine (SNOMED CT 679450460) Active Condition [place] [facility] Depression * (ICD-9-CM 311.) Active Condition [facility] Dyspnea on exertion Active Condition [place] [facility] Dyspnea on exertion (SNOMED CT 76557442) Active Condition [place] [facility] Elevated blood pressure Active Condition [facility] Ethanol abuse Active Condition [facility] [place] [facility] High risk drug monitoring status Active Condition [facility] [place] [facility] Hypercholesterolemia Active Condition [facility] Hyperlipidemia (SNOMED CT 93161364) Active Condition [facility] Hypertension Active [facility] Inflammatory polyarthritis Active Condition [facility] INSOMNIA, unspecified Active Condition [facility] Knee pain Active Condition [facility] Knee Pain Active Condition [facility] Low back pain (SNOMED CT 508187262) Active Condition [facility] Obesity Active Condition [facility] Obstructive Sleep Apnea (Adult) (Pediatric) (ICD-9-CM 327.23) Active Condition October 06, 2020 Entered By: MARCY PULIDO Comment: 07/06/12 Mild: PRDI 16.4: on CPAP. 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 [facility] OEF/OIF EXPOSURE TO BURN PIT SMOKE Active Condition [facility] OEF/OIF EXPOSURE TO SANDSTORMS/DUSTSTORMS Active Condition [facility] Osteoarthritis of knee (SNOMED CT 130639305) Active Condition [facility] Osteoarthrosis involving the knee Active Condition [facility] Pain radiating to right side of chest Active Condition [facility] PAIN, NECK/CERVICALGIA Active Condition [facility] Posttraumatic stress disorder Active Condition October 06, 2020 Entered By: MARCY PULIDO Comment: has service dog [facility] Primary insomnia (ICD-9-CM 780.52/307.42) Active Condition [facility] Primary Obesity (ICD-9-CM 278.00) Active Condition [facility] Pseudogout Active Condition Jun 02 Entered By: LAURA SOMMER Comment: Left knee [facility] Sacroiliitis (ICD-9-CM 720.2) Active Condition [facility] Screening for Ischemic Heart Disease (ICD-9-CM V81.0) Active Condition [facility] Sensorineural Hearing Loss, Bilateral (ICD-9-CM 389.18) Active Condition [facility] Tobacco Use Disorder Active Condition [facility] Tobacco Use Disorder, Continuous (ICD-9-CM 305.1) Active Condition October 06, 2020 Entered By: MARCY PULIDO Comment: Quit cigarettes 2012 [facility] Knee: arthralgia * (ICD-9-CM 719.46) Inactive Condition 06/02/2012 [facility] Diagnosis: ICD-10-CM I95.1 Orthostatic hypotension Active Diagnosis [facility] Diagnosis: ICD-10-CM F10.10 Alcohol abuse, uncomplicated Active Diagnosis [facility] Admit Reason: ETOH USE DISORDER Active Diagnosis [facility] Diagnosis: ICD-10-CM M25.552 Pain in left hip Active Diagnosis [facility] Diagnosis: ICD-10-CM F43.10 Post-traumatic stress disorder, unspecified Active Diagnosis [facility] Diagnosis: ICD-10-CM M06.4 Inflammatory polyarthropathy Active Diagnosis AYSHA MONTEJO [facility] Diagnosis: ICD-10-CM E83.42 Hypomagnesemia Active Diagnosis LESVIA PRADO [facility] Diagnosis: ICD-10-CM Z47.89 Encounter for other orthopedic aftercare Active Diagnosis [facility] Diagnosis: ICD-10-CM S32.000S Wedge compression fracture of unsp lumbar vertebra, sequela Active Diagnosis [facility] Diagnosis: ICD-10-CM S22.060A Wedge compression fracture of T7-T8 vertebra, init Active Diagnosis [facility] Diagnosis: ICD-10-CM S22.009S Unsp fracture of unspecified thoracic vertebra, sequela Active Diagnosis [facility] Diagnosis: ICD-10-CM Z71.89 Other specified counseling Active Diagnosis [facility] Diagnosis: ICD-10-CM M62.81 Muscle weakness (generalized) Active Diagnosis [facility] Diagnosis: ICD-10-CM S32.810S Mult fx of pelvis w stable disrupt of pelvic ring, sequela Active Diagnosis [facility] Diagnosis: ICD-10-CM I49.3 Ventricular premature depolarization Active Diagnosis ABELARDO Ramsey [facility] Diagnosis: ICD-10-CM M17.10 Unilateral primary osteoarthritis, unspecified knee Active Diagnosis [facility] Medications Combined list of outpatient medications from 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Medications provided include 1) outpatient medications from the last 15 months, and 2) patient-reported medications. Medication Details Route Status Patient Instructions Prescription Expires Prescription Number Last Dispense Date Ordering Provider Order Date Order Qty Source ACETAMINOPH EN 500MG TAB TAKE TWO TABLETS BY MOUTH TWICE A DAY FOR LOW BACK AND LEFT HIP PAIN ORALLY ACTIVE 06/02/2024 [id number] aRdha HENDERSON ENJAMIN E 2023 400 [facility] ALENDRONATE 10MG TAB TAKE ONE TABLET BY MOUTH EVERY DAY TO PREVENT BONE LOSS ORALLY ACTIVE 10/05/2023 [id number] 4 Radha HENDERSON ENJAMIN E 2022 90 [facility] BISACODYL 5MG TAB,EC TAKE TWO TABLETS BY MOUTH ONCE FOR COLON PREP ORALLY 08/10/2023 [id number] GUANAKITO SPENCE L 2023 2 [facility] [facility] BUPROPION HCL 150MG 24HR TAB,SA TAKE 1-2 TABLETS BY MOUTH EVERY DAY FOR DEPRESSI ON DIRECTED BY PROVIDER ORALLY DISCONT INUED 10/29/2023 [id number] 3 BENSON MAYA 2022 180 [facility] CHOLECALCIF AJ 25MCG (1,000UNIT) TAB TAKE ONE TABLET BY MOUTH EVERY DAY FOR VITAMIN D ORALLY ACTIVE 03/31/2024 [id number] 4 Radha HENDERSON ENJAMIN E 2022 100 [facility] CYANOCOBALA MIN 1000MCG TAB TAKE ONE TABLET BY MOUTH EVERY DAY FOR B12 SUPPLEME NT ORALLY ACTIVE 06/02/2024 [id number] 4 Radha HENEDRSON ENJAMIN E 2023 100 [facility] DOXEPIN HCL 10MG CAP TAKE ONE CAPSULE BY MOUTH AT BEDTIME NEEDED FOR INSOMNIA ORALLY DISCONT INUED 10/29/2023 [id number] 3 BENSON MAYA 2022 90 [facility] ESZOPICLONE 3MG TAB TAKE ONE TABLET BY MOUTH AT BEDTIME FOR INSOMNIA ORALLY DISCONT INUED BY SANTO R 08/27/2023 [id number] 3 Raysa BOWERS T 2022 30 [facility] [place] [facility] ESZOPICLONE 3MG TAB TAKE ONE TABLET BY MOUTH AT BEDTIME FOR INSOMNIA ORALLY DISCONT INUED 04/30/2023 [id number] BENSON MAYA 2022 30 [place] [facility] ESZOPICLONE 3MG TAB TAKE ONE TABLET BY MOUTH AT BEDTIME FOR INSOMNIA ORALLY DISCONT INUED 01/15/2023 [id number] 3 BENSON MAYA 2022 30 [facility] FOLIC ACID 1MG TAB TAKE ONE TABLET BY MOUTH EVERY DAY FOR FOLIC ACID SUPPLEME NT ORALLY ACTIVE 02/09/2024 [id number] 4 Radha HENDERSON ENJAMIN E 2022 90 [place] [facility] HYDROCHLORO THIAZIDE 25MG TAB TAKE ONE TABLET BY MOUTH EVERY DAY FOR BLOOD PRESSURE ORALLY ACTIVE 10/05/2023 [id number] Radha HENDERSON ENJAMIN E 2022 90 [place] [facility] HYDROXYCHLO ROQUINE SO4 200MG TAB TAKE ONE TABLET BY MOUTH EVERY DAY ORALLY DISCONT INUED 09/19/2022 [id number] 3 MARCY KEITA 2022 90 [place] [facility] HYDROXYCHLO ROQUINE SO4 200MG TAB TAKE ONE TABLET BY MOUTH EVERY DAY ORALLY DISCONT INUED 08/19/2022 [id number] 3 MARCY KEITA 2022 90 [facility] [place] [facility] LAMOTRIGINE 25MG TAB TAKE ONE TABLET BY MOUTH EVERY DAY FOR 14 DAYS, THEN TAKE TWO TABLETS EVERY DAY FOR 14 DAYS, THEN TAKE FOUR TABLETS EVERY DAY FOR 30 DAYS FOR MOOD ORALLY DISCONT INUED BY SANTO Herrera 07/16/2023 [id number] 4 Raysa BOWERS T 2023 162 [facility] [place] [facility] LEFLUNOMIDE 20MG TAB TAKE ONE TABLET BY MOUTH EVERY DAY INFLAMMA TORY ARTHRITI S ORALLY DISCONT INUED 09/19/2022 [id number] 3 MARCY KEITA 2022 90 [facility] [place] LIDOCAINE 5% PATCH APPLY 1 PATCH TOPICALL Y EVERY DAY NEEDED FOR UP TO 12 HOURS FOR PAIN IN TOPICA LLY ACTIVE 06/02/2024 [id number] 4 Radha HENDERSON ENCHRISTALMIN E 2023 30 [place] [facility] MAGNESIUM OXIDE 420MG TAB TAKE ONE TABLET BY MOUTH AT BEDTIME FOR MAGNESIU M SUPPLEME NT ORALLY ACTIVE 02/08/2024 [id number] 4 Radha HENDERSON ENJAMIN E 2022 90 [place] [facility] NALTREXONE (EQV-REVIA) 50MG TAB TAKE ONE TABLET BY MOUTH EVERY DAY FOR SOBRIETY ORALLY ACTIVE 09/02/2024 [id number] 4 Radha HENDERSON ENJAMIN E 2023 30 [place] [facility] NALTREXONE (EQV-REVIA) 50MG TAB TAKE ONE TABLET BY MOUTH EVERY DAY FOR SOBRIETY ORALLY DISCONT INUED 02/08/2024 [id number] 4 Radha HENDERSON ENJAMIN E 2022 90 [place] [facility] OMEPRAZOLE 20MG CAP,EC TAKE ONE CAPSULE BY MOUTH EVERY DAY FOR STOMACH ACID - TAKE AT LEAST 30 MIN PRIOR TO MEAL ON EMPTY STOMACH ORALLY ACTIVE 02/25/2024 [id number] 4 Radha HENDERSON ENJAMIN E 2022 90 [facility] [place] [facility] PEG-3350/EL ECTROLYTES PWDR TAKE ONE CONTAINE R BY MOUTH DIRECTED FOR COLON PREP ORALLY 08/10/2023 [id number] 4 GUANAKITO SPENCE TTANY L 2023 1 [facility] [place] [facility] PRAZOSIN HCL 1MG CAP TAKE ONE CAPSULE BY MOUTH AT BEDTIME --MAY INCREASE DOSE BY ONE CAPSULE EVERY 3 DAYS UP TO 5 CAPSULES NIGHTLY TOLERATE D ORALLY SUSPEND ED 08/22/2024 [id number] 4 Raysa BOWERS T 2023 90 [facility] [place] [facility] PRAZOSIN HCL 1MG CAP TAKE ONE CAPSULE BY MOUTH AT BEDTIME --MAY INCREASE DOSE BY ONE CAPSULE EVERY 3 DAYS UP TO 5 CAPSULES NIGHTLY TOLERATE D ORALLY DISCONT INUED 07/21/2024 [id number] 4 Raysa BOWERS ACQUEAGLE T 2023 90 [facility] [place] THIAMINE 100MG TAB TAKE ONE TABLET BY MOUTH EVERY DAY FOR SUPPLEME NT ORALLY ACTIVE 02/09/2024 [id number] 4 Radha HENDERSON ENJAMIN E 2022 100 [facility] [place] [facility] VORTIOXETIN E 20MG TAB TAKE ONE TABLET BY MOUTH EVERY DAY ORALLY ACTIVE 08/22/2024 [id number] Raysa BOWERS T 2023 90 [facility] VORTIOXETIN E 20MG TAB TAKE ONE TABLET BY MOUTH EVERY DAY ORALLY DISCONT INUED 02/25/2024 [id number] 3 Raysa BOWERS T 2022 90 [facility] VORTIOXETIN E 20MG TAB TAKE ONE TABLET BY MOUTH EVERY DAY ORALLY DISCONT INUED 10/29/2023 [id number] 3 BENSON MAYA 2022 90 [facility] Allergies, Adverse Reactions, Alerts Combined list of allergies from Department of [facility] and Veterans Affairs facilities. It does not include entries that were removed or entered in error. Substance Category Reaction Severity Reaction type Status Date Reported Comments Source KENALONE INJECTION (40 MG/ML) Propensity to adverse reactions to drug (finding) Depressive disorder active 9 [facility] PENICILLIN Propensity to adverse reactions to drug (finding) active 0 [facility] PENICILLIN-G RELATED PENICILLINS Drug allergy (disorder) active 0 [facility] Penicillins Drug allergy (disorder) Unknown active 1 [facility] [place] Zolpidem Drug allergy (disorder) Somnambulis m active 5 [facility] ZOLPIDEM Propensity to adverse reactions to drug (finding) Sleep walking disorder active 5 [facility] Immunizations Combined list of available immunizations from the Department of [facility] and [facility] facilities. Immunization Series Date Given Administered By Site Reaction Lot Number CVX Code Drug Manager Process Improvement Status Comments Source COVID-19 ([email or web address]), MRNA, LNP-S, PF, MELISA-SUCROSE, 30 MCG/0.3 ML (AGES 12+ YEARS) 1 2023 ASHLEE CARRINGTON RIGHT DELTO ID [id number] 309 complet ed [facility] INFLUENZA, HIGH-DOSE, QUADRIVALENT 2022 LESTER SANCHEZ LEFT DELTO ID [id number] 197 complet ed [facility] INFLUENZA VACCINE, QUADRIVALENT, ADJUVANTED 2022 CHILLSTROM,BE TH M LEFT DELTO ID [id number] 205 complet ed [facility] COVID-19, mRNA, LNP-S, PF, 100 mcg or 50 mcg dose 2021 LAYLA Moderna [employer] (MOD) Not Given COVID-19, mRNA, LNP-S, PF, 100 mcg or 50 mcg dose DoD COVID-19 (MODERNA), MRNA, LNP-S, PF, 100 MCG/0.5ML DOSE OR 50 MCG/0.25ML DOSE 2021 207 complet ed [facility] PNEUMOCOCCAL POLYSACCHARID E PPV23 2021 33 complet ed [facility] TDAP 2021 115 complet ed [facility] PNEUMOCOCCAL CONJUGATE PCV 13 2021 133 complet ed [employer], Lot # [id number], Exp 07/07 [facility] influenza, injectable, quadrivalent, preservative free 2020 ATTARIAN, () Not Given influenza , injectabl e, quadrival ent, preservat rock free DoD COVID-19, mRNA, LNP-S, PF, 100 mcg or 50 mcg dose 2020 ATTARIAN, () Not Given COVID-19, mRNA, LNP-S, PF, 100 mcg or 50 mcg dose DoD COVID-19 (MODERNA), MRNA, LNP-S, PF, 100 MCG OR 50 MCG DOSE 3 2020 207 complet ed [facility] INFLUENZA, INJECTABLE, QUADRIVALENT, PRESERVATIVE FREE 2020 150 complet ed [facility] INFLUENZA, UNSPECIFIED FORMULATION 2020 88 complet ed [facility] COVID-19 (MODERNA), MRNA, LNP-S, PF, 100 MCG/0.5 ML DOSE 2 2020 207 complet ed [facility] COVID-19 (MODERNA), MRNA, LNP-S, PF, 100 MCG/0.5 ML DOSE 1 2020 207 complet ed [facility] TDAP 2020 115 complet ed [facility] influenza, injectable, quadrivalent, preservative free 2019 OVERHOLT, () Not Given influenza , injectabl e, quadrival ent, preservat rock free [facility] INFLUENZA, INJECTABLE, QUADRIVALENT, PRESERVATIVE FREE 2019 150 complet ed [facility] INFLUENZA, UNSPECIFIED FORMULATION 2019 88 complet [facility] INFLUENZA, SEASONAL, INJECTABLE 2018 141 complet ed [facility] ZOSTER RECOMBINANT 2017 187 complet ed [facility] zoster recombinant 2017 ANN, () Not Given zoster recombina nt DoD INFLUENZA, INJECTABLE, QUADRIVALENT, PRESERVATIVE FREE 2017 150 complet ed [facility] ZOSTER RECOMBINANT 2017 187 complet ed [facility] INFLUENZA, SEASONAL, INJECTABLE 2017 141 complet ed [facility] ZOSTER LIVE 2016 121 complet ed [employer],N01 [id number] [facility] INFLUENZA, SEASONAL, INJECTABLE, PRESERVATIVE FREE 2016 140 complet ed [facility] INFLUENZA, SEASONAL, INJECTABLE, PRESERVATIVE FREE 2015 140 complet ed [facility] INFLUENZA, SEASONAL, INJECTABLE, PRESERVATIVE FREE 2014 140 complet ed [facility] INFLUENZA, SEASONAL, INJECTABLE 2014 141 complet ed [facility] INFLUENZA, SEASONAL, INJECTABLE 2013 141 complet ed [facility] INFLUENZA, SEASONAL, INJECTABLE 2013 141 complet ed [facility] INFLUENZA, UNSPECIFIED FORMULATION 2012 88 complet ed [facility] PNEUMOCOCCAL, UNSPECIFIED FORMULATION 2012 109 complet ed merck;[id number];06/0 12/2013 [facility] INFLUENZA, UNSPECIFIED FORMULATION 2011 88 complet ed [facility] tuberculin skin test; purified protein derivative solution, intradermal 1 2011 KARMA FERNANDEZ [id number] Sanofi Pasteur ([facility]) complet ed tuberculi n skin test; purified protein derivativ e solution, intraderm al [facility] influenza virus vaccine, live, attenuated, for intranasal use 1 2011 KARMA FERNANDEZ [id number] [employer] (MED) complet ed influenza virus vaccine, live, attenuate d, for intranasa l use DoD varicella virus vaccine 1 2010 UNK 21 Unknown (UNK) Not Given varicella virus vaccine DoD anthrax vaccine 4 2010 [id number] [employer] (MIP) complet ed anthrax vaccine DoD typhoid Vi capsular polysaccharid e vaccine 1 2010 [id number] Sanofi Pasteur (PMC) complet ed typhoid Vi capsular polysacch aride vaccine DoD Influenza, seasonal, injectable, preservative free 1 2010 [id number] [facility] [employer] (CSL) complet ed Influenza , seasonal, injectabl e, preservat rock free DoD influenza virus vaccine, split virus (incl. purified surface antigen)-reti red CODE 1 2009 UNK 15 Unknown (UNK) comple t ed influenza virus vaccine, split virus (incl. purified surface antigen)- retired CODE DoD hepatitis A vaccine, adult dosage 3 2009 [id number] [employer] (SKB) complet ed hepatitis A vaccine, adult dosage [facility] Novel influenza-H1N 1-09, injectable 1 2008 [id number] 127 Unknown (UNK) complet ed Novel influenza -V1F2-36, injectabl e DoD INFLUENZA, UNSPECIFIED FORMULATION 2008 88 complet ed [facility] NOVEL INFLUENZA-H1N 1-09, ALL FORMULATIONS 2008 128 complet ed [facility] TDAP 2008 115 complet ed [facility] tetanus and diphtheria toxoids, adsorbed, preservative free, for adult use (2 Lf of tetanus toxoid and 2 Lf of diphtheria toxoid) 1 2008 [id number] 09 Unknown (UNK) comple t ed tetanus and diphtheri a toxoids, adsorbed, preservat rock free, for adult use (2 Lf of tetanus toxoid and 2 Lf of diphtheri a toxoid) DoD anthrax vaccine 3 2008 [id number] 24 Unknown (UNK) comple t ed anthrax vaccine DoD influenza virus vaccine, unspecified formulation 1 2008 [id number] 88 Unknown (UNK) comple t ed influenza virus vaccine, unspecifi ed formulati on DoD anthrax vaccine 2 2008 [id number] [employer] ([facility]) complet ed anthrax vaccine DoD anthrax vaccine 1 2008 UNK 24 Miles (MIL) complet ed anthrax vaccine DoD typhoid Vi capsular polysaccharid e vaccine 1 2008 [id number] Sanofi Pasteur (PMC) complet ed typhoid Vi capsular polysacch aride vaccine DoD influenza virus vaccine, split virus (incl. purified surface antigen)-reti red CODE 1 2007 UNK 15 Unknown (UNK) comple t ed influenza virus vaccine, split virus (incl. purified surface antigen)- retired CODE DoD influenza virus vaccine, unspecified formulation 1 2006 [id number] 88 Unknown (UNK) complet ed influenza virus vaccine, unspecifi ed formulati on DoD influenza virus vaccine, split virus (incl. purified surface antigen)-reti red CODE 1 2005 UNK 15 Unknown (UNK) comple t ed influenza virus vaccine, split virus (incl. purified surface antigen)- retired CODE DoD hepatitis B vaccine, adult dosage 3 2005 UNK 43 Unknown (UNK) comple t ed hepatitis B vaccine, adult dosage DoD influenza virus vaccine, unspecified formulation 1 2004 UNK 88 Unknown (UNK) comple t ed influenza virus vaccine, unspecifi ed formulati on DoD TD(ADULT) UNSPECIFIED FORMULATION 2004 139 complet ed [facility] hepatitis B vaccine, adult dosage 1 2004 UNK 43 Unknown (UNK) comple t ed hepatitis B vaccine, adult dosage DoD hepatitis A vaccine, adult dosage 1 2004 [id number] 52 Unknown (UNK) comple t ed hepatitis A vaccine, adult dosage DoD vaccinia (smallpox) vaccine 1 2004 [id number] 75 Unknown (UNK) comple t ed vaccinia (smallpox ) vaccine DoD influenza virus vaccine, split virus (incl. purified surface antigen)-reti red CODE 1 2003 UNK 15 Unknown (UNK) comple t ed influenza virus vaccine, split virus (incl. purified surface antigen)- retired CODE DoD hepatitis B vaccine, adult dosage 1 2003 [id number] 43 Unknown (UNK) complet ed hepatitis B vaccine, adult dosage DoD hepatitis A vaccine, adult dosage 1 2003 [id number] 52 Unknown (UNK) complet ed hepatitis A vaccine, adult dosage DoD meningococcal polysaccharid e vaccine (MPSV4) 1 2003 [id number] 32 Unknown (UNK) comple t ed meningoco ccal polysacch aride vaccine (MPSV4) DoD typhoid Vi capsular polysaccharid e vaccine 1 2003 [id number] 101 Unknown (UNK) comple t ed typhoid Vi capsular polysacch aride vaccine DoD tetanus and diphtheria toxoids, adsorbed, preservative free, for adult use (2 Lf of tetanus toxoid and 2 Lf of diphtheria toxoid) 1 1999 UNK 09 Unknown (UNK) comple t ed tetanus and diphtheri a toxoids, adsorbed, preservat rock free, for adult use (2 Lf of tetanus toxoid and 2 Lf of diphtheri a toxoid) DoD typhoid Vi capsular polysaccharid e vaccine 1 1987 UNK 101 Unknown (UNK) comple t ed typhoid Vi capsular polysacch aride vaccine DoD yellow fever vaccine 1 1986 UNK 37 Unknown (UNK) comple t ed yellow fever vaccine DoD meningococcal polysaccharid e vaccine (MPSV4) 1 1985 UNK 32 Unknown (UNK) comple t ed meningoco ccal polysacch aride vaccine (MPSV4) DoD vaccinia (smallpox) vaccine 1 1985 UNK 75 Unknown (UNK) comple t ed vaccinia (smallpox ) vaccine DoD Results Combined list of recent chemistry, hematology and other laboratory results from Department of Defense and Veterans Affairs, ranging from 15 months to all on record, depending upon the facility. Order Name Results Value Reference Range Date Interpretation Specimen Comments Source EXTRA MINT TUBE EXTRA MINT TUBE RECEIVED 09/22 Specimen Type: PLASMA No comment entered. Ordering Provider: RINA ROSS MA Report Released Date/Time: September 23, 2023 02:49 PM Reporting Lab: [facility] [id number] Performing Lab: [facility] [id number] [place] [facility] PROCALCI TONIN PROCALCITO ENRIKE [MASS/VOLU ME] IN SERUM OR PLASMA 0.11 <0.09 - 0.09 09/22 H Specimen Type: PLASMA No comment entered. Ordering Provider: COLE BOWSER Report Released Date/Time: September 23, 2023 04:10 AM Reporting Lab: [facility] [id number] Performing Lab: [facility] [id number] [place] [facility] LIPASE LIPASE [ENZYMATIC ACTIVITY/V OLUME] IN SERUM OR PLASMA 12 <60 - 60 09/22 Specimen Type: PLASMA No comment entered. Ordering Provider: RINA ROSS MA Report Released Date/Time: September 23, 2023 12:52 PM Reporting Lab: [facility] [id number] Performing Lab: [facility] [id number] [place] [facility] C-REACTI VE PROTEIN C REACTIVE PROTEIN [MASS/VOLU ME] IN SERUM OR PLASMA BY HIGH SENSITIVIT Y METHOD 81.34 <5.00 - 5.00 09/22 H Specimen Type: PLASMA No comment entered. Ordering Provider: COLE BOWSER Report Released Date/Time: September 23, 2023 04:10 AM Reporting Lab: [facility] [address] Performing Lab: [facility] [address] [place] [facility] CBC LEUKOCYTES [#/VOLUME] IN BLOOD BY AUTOMATED COUNT 12.24 4.0 - 11.0 09/22 H Specimen Type: BLOOD No comment entered. Ordering Provider: COLE BOWSER Report Released Date/Time: September 23, 2023 04:10 AM Reporting Lab: [facility] [address] Performing Lab: [facility] [address] [place] [facility] CBC ERYTHROCYT ES [#/VOLUME] IN BLOOD BY AUTOMATED COUNT 3.93 4.6 - 6.2 09/22 L Specimen Type: BLOOD No comment entered. Ordering Provider: COLE BOWSER Report Released Date/Time: September 23, 2023 04:10 AM Reporting Lab: [facility] [address] Performing Lab: [facility] [address] [place] [facility] CBC HEMOGLOBIN [MASS/VOLU ME] IN BLOOD 13.9 13.5 - 17.9 09/22 Specimen Type: BLOOD No comment entered. Ordering Provider: COLE BOWSER Report Released Date/Time: September 23, 2023 04:10 AM Reporting Lab: [facility] [address] Performing Lab: [facility] [address] [place] [facility] CBC HEMATOCRIT [VOLUME FRACTION] OF BLOOD BY AUTOMATED COUNT 39.8 41 - 54 09/22 L Specimen Type: BLOOD No comment entered. Ordering Provider: COLE BOWSER Report Released Date/Time: September 23, 2023 04:10 AM Reporting Lab: [facility] [address] Performing Lab: [facility] [address] [place] [facility] CBC MCV [ENTITIC VOLUME] BY AUTOMATED COUNT 101.3 80 - 100 09/22 H Specimen Type: BLOOD No comment entered. Ordering Provider: COLE BOWSER Report Released Date/Time: September 23, 2023 04:10 AM Reporting Lab: [facility] [address] Performing Lab: [facility] [address] [place] [facility] CBC MCH [ENTITIC MASS] BY AUTOMATED COUNT 35.4 27 - 33 09/22 H Specimen Type: BLOOD No comment entered. Ordering Provider: COLE BOWSER Report Released Date/Time: September 23, 2023 04:10 AM Reporting Lab: [facility] [address] Performing Lab: [facility] [address] [place] [facility] CBC MCHC [MASS/VOLU ME] BY AUTOMATED COUNT 34.9 32.0 - 37.5 09/22 Specimen Type: BLOOD No comment entered. Ordering Provider: COLE BOWSER Report Released Date/Time: September 23, 2023 04:10 AM Reporting Lab: [facility] [address] Performing Lab: [facility] [address] [place] [facility] CBC PLATELETS [#/VOLUME] IN BLOOD BY AUTOMATED COUNT 236 150 - 400 09/22 Specimen Type: BLOOD No comment entered. Ordering Provider: COLE BOWSER Report Released Date/Time: September 23, 2023 04:10 AM Reporting Lab: [facility] [address] Performing Lab: [facility] [address] [place] [facility] CBC PLATELET MEAN VOLUME [ENTITIC VOLUME] IN BLOOD BY AUTOMATED COUNT 9.3 7.4 - 10.4 09/22 Specimen Type: BLOOD No comment entered. Ordering Provider: COLE BOWSER Report Released Date/Time: September 23, 2023 04:10 AM Reporting Lab: [facility] [address] Performing Lab: [facility] [address] [place] [facility] CBC ERYTHROCYT E DISTRIBUTI ON WIDTH [RATIO] BY AUTOMATED COUNT 12.0 11.5 - 14.5 09/22 Specimen Type: BLOOD No comment entered. Ordering Provider: COLE BOWSER Report Released Date/Time: September 23, 2023 04:10 AM Reporting Lab: [facility] [address] Performing Lab: [facility] [address] [place] [facility] COMPREHE NSIVE METABOLI C PANEL+MG CREATININE [MASS/VOLU ME] IN SERUM OR PLASMA 1.1 0.7 - 1.2 09/22 Specimen Type: PLASMA No comment entered. Ordering Provider: COLE BOWSER Report Released Date/Time: September 23, 2023 04:10 AM Reporting Lab: [facility] [address] Performing Lab: [facility] [address] [place] [facility] COMPREHE NSIVE METABOLI C PANEL+MG UREA NITROGEN [MASS/VOLU ME] IN SERUM OR PLASMA 16 8 - 26 09/22 Specimen Type: PLASMA No comment entered. Ordering Provider: COLE BOWSER Report Released Date/Time: September 23, 2023 04:10 AM Reporting Lab: [facility] [address] Performing Lab: [facility] [address] [place] [facility] COMPREHE NSIVE METABOLI C PANEL+MG GLUCOSE [MASS/VOLU ME] IN SERUM OR PLASMA 152 70 - 100 09/22 H Specimen Type: PLASMA No comment entered. Ordering Provider: COLE BOWSER Report Released Date/Time: September 23, 2023 04:10 AM Reporting Lab: [facility] [address] Performing Lab: [facility] [address] [place] [facility] COMPREHE NSIVE METABOLI C PANEL+MG SODIUM [MOLES/VOL UME] IN SERUM OR PLASMA 133 136 - 145 09/22 L Specimen Type: PLASMA No comment entered. Ordering Provider: COLE BOWSER Report Released Date/Time: September 23, 2023 04:10 AM Reporting Lab: [facility] [address] Performing Lab: [facility] [address] [place] [facility] COMPREHE NSIVE METABOLI C PANEL+MG POTASSIUM [MOLES/VOL UME] IN SERUM OR PLASMA 3.8 3.5 - 5.1 09/22 Specimen Type: PLASMA No comment entered. Ordering Provider: COLE BOWSER Report Released Date/Time: September 23, 2023 04:10 AM Reporting Lab: [facility] [address] Performing Lab: [facility] [address] [place] [facility] COMPREHE NSIVE METABOLI C PANEL+MG CHLORIDE [MOLES/VOL UME] IN SERUM OR PLASMA 95 98 - 107 09/22 L Specimen Type: PLASMA No comment entered. Ordering Provider: COLE BOWSER Report Released Date/Time: September 23, 2023 04:10 AM Reporting Lab: [facility] [address] Performing Lab: [facility] [address] [place] [facility] COMPREHE NSIVE METABOLI C PANEL+MG CARBON DIOXIDE, TOTAL [MOLES/VOL UME] IN SERUM OR PLASMA 20 22 - 29 09/22 L Specimen Type: PLASMA No comment entered. Ordering Provider: COLE BOWSER Report Released Date/Time: September 23, 2023 04:10 AM Reporting Lab: [facility] [address] Performing Lab: [facility] [address] [place] [facility] COMPREHE NSIVE METABOLI C PANEL+MG CALCIUM [MASS/VOLU ME] IN SERUM OR PLASMA 9.7 8.4 - 10.2 09/22 Specimen Type: PLASMA No comment entered. Ordering Provider: COLE BOWSER Report Released Date/Time: September 23, 2023 04:10 AM Reporting Lab: [facility] [address] Performing Lab: [facility] [address] [place] [facility] COMPREHE NSIVE METABOLI C PANEL+MG PROTEIN [MASS/VOLU ME] IN SERUM OR PLASMA 6.8 6.0 - 8.3 09/22 Specimen Type: PLASMA No comment entered. Ordering Provider: COLE BOWSER Report Released Date/Time: September 23, 2023 04:10 AM Reporting Lab: [facility] [address] Performing Lab: [facility] [address] [place] [facility] COMPREHE NSIVE METABOLI C PANEL+MG ALBUMIN [MASS/VOLU ME] IN SERUM OR PLASMA 3.9 3.5 - 5.2 09/22 Specimen Type: PLASMA No comment entered. Ordering Provider: COLE BOWSER Report Released Date/Time: September 23, 2023 04:10 AM Reporting Lab: [facility] [address] Performing Lab: [facility] [address] [place] [facility] COMPREHE NSIVE METABOLI C PANEL+MG BILIRUBIN. TOTAL [MASS/VOLU ME] IN SERUM OR PLASMA 0.7 0.2 - 1.2 09/22 Specimen Type: PLASMA No comment entered. Ordering Provider: COLE BOWSER Report Released Date/Time: September 23, 2023 04:10 AM Reporting Lab: [facility] [address] Performing Lab: [facility] [address] [place] [facility] COMPREHE NSIVE METABOLI C PANEL+MG MAGNESIUM [MASS/VOLU ME] IN SERUM OR PLASMA 1.8 1.6 - 2.6 09/22 Specimen Type: PLASMA No comment entered. Ordering Provider: COLE BOWSER Report Released Date/Time: September 23, 2023 04:10 AM Reporting Lab: [facility] [address] Performing Lab: [facility] [address] [place] [facility] COMPREHE NSIVE METABOLI C PANEL+MG ANION GAP IN SERUM OR PLASMA 18 5 - 15 09/22 H Specimen Type: PLASMA No comment entered. Ordering Provider: COLE BOWSER Report Released Date/Time: September 23, 2023 04:10 AM Reporting Lab: [facility] [address] Performing Lab: [facility] [address] [facility] COMPREHE NSIVE METABOLI C PANEL+MG ALKALINE PHOSPHATAS E [ENZYMATIC ACTIVITY/V OLUME] IN SERUM OR PLASMA 123 40 - 150 09/22 Specimen Type: PLASMA No comment entered. Ordering Provider: COLE BOWSER Report Released Date/Time: September 23, 2023 04:10 AM Reporting Lab: [facility] [address] Performing Lab: [facility] [address] [facility] COMPREHE NSIVE METABOLI C PANEL+MG ALANINE AMINOTRANS FERASE [ENZYMATIC ACTIVITY/V OLUME] IN SERUM OR PLASMA 42 <55 - 55 09/22 Specimen Type: PLASMA No comment entered. Ordering Provider: COLE BOWSER Report Released Date/Time: September 23, 2023 04:10 AM Reporting Lab: [facility] [address] Performing Lab: [facility] [address] [place] [facility] COMPREHE NSIVE METABOLI C PANEL+MG ASPARTATE AMINOTRANS FERASE [ENZYMATIC ACTIVITY/V OLUME] IN SERUM OR PLASMA 32 <34 - 34 09/22 Specimen Type: PLASMA No comment entered. Ordering Provider: COLE BOWSER Report Released Date/Time: September 23, 2023 04:10 AM Reporting Lab: [facility] [address] Performing Lab: [facility] [address] [place] [facility] COMPREHE NSIVE METABOLI C PANEL+MG GLOMERULAR FILTRATION RATE/1.73 SQ M.PREDICTE D [VOLUME RATE/AREA] IN SERUM, PLASMA OR BLOOD BY CREATININE -BASED FORMULA (CKD-EPI 2020) 74 60 09/22 Specimen Type: PLASMA No comment entered. Ordering Provider: COLE BOWSER Report Released Date/Time: September 23, 2023 04:10 AM Reporting Lab: [facility] [address] Performing Lab: [facility] [address] [place] [facility] DRUG SCREEN PANEL,UR INE BARBITURAT ES [PRESENCE] IN URINE BY SCREEN METHOD Negative 09/21 Specimen Type: URINE Comment: Presumptive Positive by screen, results not confirmed. Ordering Provider: RADHA DODD Report Released Date/Time: September 22, 2023 10:59 AM Reporting Lab: [facility] [address] Performing Lab: [facility] [address] [place] [facility] DRUG SCREEN PANEL,UR INE AMPHETAMIN ES [PRESENCE] IN URINE Negative 09/21 Specimen Type: URINE Comment: Presumptive Positive by screen, results not confirmed. Ordering Provider: RADHA DODD Report Released Date/Time: September 22, 2023 10:59 AM Reporting Lab: [facility] [address] Performing Lab: [facility] [address] [place] [facility] DRUG SCREEN PANEL,UR INE COCAINE [PRESENCE] IN URINE Negative 09/21 Specimen Type: URINE Comment: Presumptive Positive by screen, results not confirmed. Ordering Provider: RADHA DODD Report Released Date/Time: September 22, 2023 10:59 AM Reporting Lab: [facility] [address] Performing Lab: [facility] [address] [place] [facility] DRUG SCREEN PANEL,UR INE BENZODIAZE PINES [PRESENCE] IN URINE BY SCREEN METHOD Negative 09/21 Specimen Type: URINE Comment: Presumptive Positive by screen, results not confirmed. Ordering Provider: RADHA DODD Report Released Date/Time: September 22, 2023 10:59 AM Reporting Lab: [facility] [address] Performing Lab: [facility] [address] [place] [facility] DRUG SCREEN PANEL,UR INE CANNABINOI DS [PRESENCE] IN URINE BY SCREEN METHOD Negative 09/21 Specimen Type: URINE Comment: Presumptive Positive by screen, results not confirmed. Ordering Provider: RADHA DODD Report Released Date/Time: September 22, 2023 10:59 AM Reporting Lab: [facility] [address] Performing Lab: [facility] [address] [place] [facility] DRUG SCREEN PANEL,UR INE METHADONE [PRESENCE] IN URINE Negative 09/21 Specimen Type: URINE Comment: Presumptive Positive by screen, results not confirmed. Ordering Provider: RADHA DODD Report Released Date/Time: September 22, 2023 10:59 AM Reporting Lab: [facility] [address] Performing Lab: [facility] [address] [place] [facility] DRUG SCREEN PANEL,UR INE OPIATES [PRESENCE] IN URINE BY SCREEN METHOD POSITIVE 09/21 H Specimen Type: URINE Comment: Presumptive Positive by screen, results not confirmed. Ordering Provider: RADHA DODD Report Released Date/Time: September 22, 2023 10:59 AM Reporting Lab: [facility] [address] Performing Lab: [facility] [address] [place] [facility] DRUG SCREEN PANEL,UR INE PHENCYCLID INE [PRESENCE] IN URINE Negative 09/21 Specimen Type: URINE Comment: Presumptive Positive by screen, results not confirmed. Ordering Provider: RADHA DODD Report Released Date/Time: September 22, 2023 10:59 AM Reporting Lab: [facility] [address] Performing Lab: [facility] [address] [place] [facility] DRUG SCREEN PANEL,UR INE ETHANOL [MASS/VOLU ME] IN URINE Negative 09/21 Specimen Type: URINE Comment: Presumptive Positive by screen, results not confirmed. Ordering Provider: RADHA DODD Report Released Date/Time: September 22, 2023 10:59 AM Reporting Lab: [facility] [address] Performing Lab: [facility] [address] [place] [facility] DRUG SCREEN PANEL,UR INE CREATININE [MASS/VOLU ME] IN URINE 290.4 20.0 09/21 Specimen Type: URINE Comment: Presumptive Positive by screen, results not confirmed. Ordering Provider: RADHA DODD Report Released Date/Time: September 22, 2023 10:59 AM Reporting Lab: [facility] [address] Performing Lab: [facility] [address] [place] [facility] DRUG SCREEN PANEL,UR INE OXYCODONE [PRESENCE] IN URINE BY SCREEN METHOD Negative 09/21 Specimen Type: URINE Comment: Presumptive Positive by screen, results not confirmed. Ordering Provider: RADHA DODD Report Released Date/Time: September 22, 2023 10:59 AM Reporting Lab: [facility] [address] Performing Lab: [facility] [address] [place] [facility] DRUG SCREEN PANEL,UR INE BUPRENORPH INE+NORBUP RENORPHINE [PRESENCE] IN URINE Negative 09/21 Specimen Type: URINE Comment: Presumptive Positive by screen, results not confirmed. Ordering Provider: RADHA DODD Report Released Date/Time: September 22, 2023 10:59 AM Reporting Lab: [facility] [address] Performing Lab: [facility] [address] [place] [facility] DRUG SCREEN PANEL,UR INE TRAMADOL CUTOFF [MASS/VOLU ME] IN URINE FOR SCREEN METHOD Negative 09/21 Specimen Type: URINE Comment: Presumptive Positive by screen, results not confirmed. Ordering Provider: RADHA DODD Report Released Date/Time: September 22, 2023 10:59 AM Reporting Lab: [facility] [address] Performing Lab: [facility] [address] [place] [facility] DRUG SCREEN PANEL,UR INE FENTANYL [PRESENCE] IN URINE Negative 09/21 Specimen Type: URINE Comment: Presumptive Positive by screen, results not confirmed. Ordering Provider: RADHA DODD Report Released Date/Time: September 22, 2023 10:59 AM Reporting Lab: [facility] [address] Performing Lab: [facility] [address] [place] [facility] URINALYS IS COLOR OF URINE YELLOW 09/21 Specimen Type: URINE No comment entered. Ordering Provider: RADHA DODD Report Released Date/Time: September 22, 2023 10:59 AM Reporting Lab: [facility] [address] Performing Lab: [facility] [address] [place] [facility] URINALYS IS SPECIFIC GRAVITY OF URINE 1.032 1.003 - 1.035 09/21 Specimen Type: URINE No comment entered. Ordering Provider: RADHA DODD Report Released Date/Time: September 22, 2023 10:59 AM Reporting Lab: [facility] [address] Performing Lab: [facility] [address] [place] [facility] URINALYS IS BILIRUBIN. TOTAL [PRESENCE] IN URINE BY TEST STRIP 1+ 09/21 Specimen Type: URINE No comment entered. Ordering Provider: RADHA DODD Report Released Date/Time: September 22, 2023 10:59 AM Reporting Lab: [facility] [address] Performing Lab: [facility] [address] [place] [facility] URINALYS IS KETONES [MASS/VOLU ME] IN URINE BY TEST STRIP 4+ 09/21 Specimen Type: URINE No comment entered. Ordering Provider: RADHA DODD Report Released Date/Time: September 22, 2023 10:59 AM Reporting Lab: [facility] [address] Performing Lab: [facility] [address] [place] [facility] URINALYS IS GLUCOSE [MASS/VOLU ME] IN URINE BY TEST STRIP NEGATIVE 09/21 Specimen Type: URINE No comment entered. Ordering Provider: RADHA DODD Report Released Date/Time: September 22, 2023 10:59 AM Reporting Lab: [facility] [address] Performing Lab: [facility] [address] [place] [facility] URINALYS IS PROTEIN [MASS/VOLU ME] IN URINE BY TEST STRIP 50 09/21 Specimen Type: URINE No comment entered. Ordering Provider: RADHA DODD Report Released Date/Time: September 22, 2023 10:59 AM Reporting Lab: [facility] [address] Performing Lab: [facility] [address] [place] [facility] URINALYS IS PH OF URINE BY TEST STRIP 5.5 5.0 - 8.0 09/21 Specimen Type: URINE No comment entered. Ordering Provider: RADHA DODD Report Released Date/Time: September 22, 2023 10:59 AM Reporting Lab: [facility] [address] Performing Lab: [facility] [address] [place] [facility] URINALYS IS LEUKOCYTES [#/AREA] IN URINE SEDIMENT BY MICROSCOPY HIGH POWER FIELD 1 0 - 7 09/21 Specimen Type: URINE No comment entered. Ordering Provider: RADHA DODD Report Released Date/Time: September 22, 2023 10:59 AM Reporting Lab: [facility] [address] Performing Lab: [facility] [address] [place] [facility] URINALYS IS BACTERIA [PRESENCE] IN URINE SEDIMENT BY LIGHT MICROSCOPY NONE SEEN 09/21 Specimen Type: URINE No comment entered. Ordering Provider: RADHA DODD Report Released Date/Time: September 22, 2023 10:59 AM Reporting Lab: [facility] [address] Performing Lab: [facility] [address] [place] [facility] URINALYS IS HYALINE CASTS [#/AREA] IN URINE SEDIMENT BY MICROSCOPY LOW POWER FIELD 1 09/21 Specimen Type: URINE No comment entered. Ordering Provider: RADHA DODD Report Released Date/Time: September 22, 2023 10:59 AM Reporting Lab: [facility] [address] Performing Lab: [facility] [address] [place] [facility] URINALYS IS ERYTHROCYT ES [#/AREA] IN URINE SEDIMENT BY MICROSCOPY HIGH POWER FIELD 1 0 - 3 09/21 Specimen Type: URINE No comment entered. Ordering Provider: RADHA DODD Report Released Date/Time: September 22, 2023 10:59 AM Reporting Lab: [facility] [address] Performing Lab: [facility] [address] [place] [facility] URINALYS IS APPEARANCE OF URINE CLEAR 09/21 Specimen Type: URINE No comment entered. Ordering Provider: RADHA DODD Report Released Date/Time: September 22, 2023 10:59 AM Reporting Lab: [facility] [address] Performing Lab: [facility] [address] [place] [facility] URINALYS IS EPITHELIAL CELLS.SQUA MOUS [#/AREA] IN URINE SEDIMENT BY MICROSCOPY HIGH POWER FIELD NONE SEEN 09/21 Specimen Type: URINE No comment entered. Ordering Provider: RADHA DODD Report Released Date/Time: September 22, 2023 10:59 AM Reporting Lab: [facility] [address] Performing Lab: [facility] [address] [place] [facility] URINALYS IS HEMOGLOBIN [PRESENCE] IN URINE BY TEST STRIP NEGATIVE 09/21 Specimen Type: URINE No comment entered. Ordering Provider: RADHA DODD Report Released Date/Time: September 22, 2023 10:59 AM Reporting Lab: [facility] [address] Performing Lab: [facility] [address] [place] [facility] URINALYS IS NITRITE [PRESENCE] IN URINE BY TEST STRIP NEGATIVE 09/21 Specimen Type: URINE No comment entered. Ordering Provider: RADHA DODD Report Released Date/Time: September 22, 2023 10:59 AM Reporting Lab: [facility] [address] Performing Lab: [facility] [address] [place] [facility] URINALYS IS LEUKOCYTE ESTERASE [PRESENCE] IN URINE BY TEST STRIP NEGATIVE 09/21 Specimen Type: URINE No comment entered. Ordering Provider: RADHA DODD Report Released Date/Time: September 22, 2023 10:59 AM Reporting Lab: [facility] [address] Performing Lab: [facility] [address] [place] [facility] COVID-19 AND FLU/RSV DIAG PANEL(CE PHEID) SARS-COV-2 (COVID-19) RNA [PRESENCE] IN RESPIRATOR Y SYSTEM SPECIMEN BY MONA WITH PROBE DETECTION Not Detected 09/21 Specimen Type: NASOPHARYNG EAL Comment: Cepheid GeneXpert (618) Ordering Provider: RADHA DODD Report Released Date/Time: September 22, 2023 01:26 PM Reporting Lab: [facility] [address] Performing Lab: [facility] [address] [place] [facility] COVID-19 AND FLU/RSV DIAG PANEL(CE PHEID) INFLUENZA VIRUS A RNA [PRESENCE] IN UPPER RESPIRATOR Y SPECIMEN BY MONA WITH PROBE DETECTION Not Detected 09/21 Specimen Type: NASOPHARYNG EAL Comment: CepOMEGA MORGANid GeneXpert (618) Ordering Provider: RADHA DODD Report Released Date/Time: September 22, 2023 01:26 PM Reporting Lab: [facility] [address] Performing Lab: [facility] [address] [place] [facility] COVID-19 AND FLU/RSV DIAG PANEL(CE PHEID) INFLUENZA VIRUS B RNA [PRESENCE] IN UPPER RESPIRATOR Y SPECIMEN BY MONA WITH PROBE DETECTION Not Detected 09/21 Specimen Type: NASOPHARYNG EAL Comment: Cepheid GeneXpert (618) Ordering Provider: RADHA DODD Report Released Date/Time: September 22, 2023 01:26 PM Reporting Lab: [facility] [address] Performing Lab: [facility] [address] [place] [facility] COVID-19 AND FLU/RSV DIAG PANEL(CE PHEID) RESPIRATOR Y SYNCYTIAL VIRUS RNA [PRESENCE] IN UPPER RESPIRATOR Y SPECIMEN BY MONA WITH PROBE DETECTION Not Detected 09/21 Specimen Type: NASOPHARYNG EAL Comment: Cepheid GeneXpert (618) Ordering Provider: RADHA DODD Report Released Date/Time: September 22, 2023 01:26 PM Reporting Lab: [facility] [address] Performing Lab: [facility] [address] [place] [facility] EXTRA BLUE TUBE EXTRA BLUE TUBE RECEIVED 09/21 Specimen Type: PLASMA No comment entered. Ordering Provider: RADHA DODD Report Released Date/Time: September 22, 2023 11:04 AM Reporting Lab: [facility] [address] Performing Lab: [facility] [address] [facility] Vital Signs Combined list of inpatient and outpatient Vital Signs from Department of Defense and Veterans Affairs, ranging from 12 months to all on record, depending upon the facility. Vital Sign Value Date Comments Source Encounters Combined list of: 1) Encounters from Department of Veterans Affairs facilities going back up to thelast 18 months. 2) Encounters from the Department of Defense facilities going back up to 280 months. Location Location Details Encounter Type Encounter Number Reason For Visit Attending Provider ADM Date DC Date Status Disposition Source Theater Facility OUTPATIENT [id number] 09/20 Released w/o Limitations [facility] Facilit [facility] Facility OUTPATIENT [id number] 12/04 Released w/o Limitations [facility] OUTPATIENT [id number] 12/12 Released w/o Limitations [facility] OUTPATIENT [id number] 12/27 Released w/o Limitations [facility] OUTPATIENT [id number] 01/14 Released w/o Limitations [facility] OUTPATIENT [id number] 01/23 Released w/o Limitations [facility] OUTPATIENT [id number] 01/23 Released 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 [facility]ilit y [facility] [place]) OUTPATIENT [id number] POST-RAYMUNDO ZELAAY 06/23 Released w/o Limitations [facility] [place]-Carlitos Hilton([facility]) [facility] [place]([facility]) OUTPATIENT [id number] BP (SAMIRA, [facility] DUNG DONNELLY 02/18 Released w/o Limitations [facility] [place]) [facility] [place] OUTPATIENT [id number] blood pressur e check MEGHAN AMEZCUA 02/19 Released w/o Limitations [facility] [place] [facility] [place] OUTPATIENT [id number] Blood pressur e check ([place] ADt, MOB) DUNG DONNELLY 02/20 Released w/o Limitations [facility] [place] [facility] [place] OUTPATIENT [id number] Blood pressur e check ([place] ADT, MOB) DUNG DONNELLY 02/22 Released w/o Limitations [facility] [place] [facility] [place] OUTPATIENT [id number] case mgmt JOVANNA HOLMAN 02/22 Released w/o Limitations [facility] [place] [facility] [place] OUTPATIENT [id number] F/U Results (MNADT, MOB) VASILE REGALADO 03/02 Released w/o Limitations [facility] [place]) [facility] [place] [facility] [facility] OUTPATIENT [id number] F/U AFTER CARDIAC STRESS TEST JOVANNA COLLAZO 03/15 Released w/o Limitations [facility] [place] [place] [facility] [place] OUTPATIENT [id number] Notes Entered by: ROSY GUIDO 03 Feb 2012 1328 ------- ------- ------- ------- -- EKG ROSY GUIDO 02/02 Released w/o Limitations [facility] [place] [facility] [place] [facility] [place] OUTPATIENT [id number] Notes Entered by: HERMINIO OAKES 03 Feb 2012 1453 ------- ------- ------- ------- -- SIERRA NICHOLE 02/02 Released w/o Limitations [facility] [place] [facility] [facility] [facility] [facility] OUTPATIENT [id number] Notes Entered by: SAMIA AQUINO 03 Feb 2012 1502 ------- ------- ------- ------- -- patient here for LORETO REALSAGAR ROMEROMACARIO 02/02 Released w/o Limitations [facility] [place], [place] [facility] [place] [facility] [facility] [facility] Conserv[facility] [place] OUTPATIENT [id number] Notes Entered by: DES DIOR 03 Feb 2012 1534 ------- ------- ------- ------- -- SCARLETT CHATTERJEE 02/02 Released w/o Limitations [facility] [place] [facility] [facility] [place] OUTPATIENT [id number] Notes Entered by: KING GAMBINO 04 Feb 2012 0726 ------- ------- ------- ------- -- JOSE Santiago 02/03 [place]ased w/o Limitations [facility] [place] [facility] [facility] Outpatient Encounter [id number] 04/28 [place] [facility] [place] [facility] Outpatient Encounter [id number] Diagnos is: ICD-10- CM F43.10 Post-tr aumatic stress disorde r, unspeci fied
BENSON MAYA 05/12 [place] [facility] [place] [facility] Outpatient Encounter [id number] 05/19 [place] [facility] [place] [facility] Outpatient Encounter [id number] 05/20 [place] [facility] [place] [facility] OFFICE O/P EST MOD 30-39 MIN [id number] Diagnos is: ICD-10- CM M06.4 Inflamm atory polyart hropath y
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
GLADYS HENDERSON NJAMIN E 05/21 [place] [facility] [place] [facility] Outpatient Encounter [id number] GLADYS HENDERSON NJAMIN E 05/24 [place] [facility] [place] [facility] Outpatient Encounter [id number] 06/18 [place] [facility] [place] [facility] Outpatient Encounter [id number] 06/18 [place] [facility] [place] [facility] Outpatient Encounter [id number] GLADYS HENDERSON NJAMIN E 06/21 [place] [facility] [place] [facility] EXT ECG>48HR<7 D REV&INTERP J [id number] Diagnos is: ICD-10- CM I49.3 Ventric ular prematu re depolar ization
Prateek TEJEDA 06/22 [facility] [place] [facility] Outpatient Encounter [id number] 06/26 [place] [facility] [place] [facility] Outpatient [facility]counter [id number] 06/27 [place] [facility] [place] [facility] Outpatient Encounter [id number] Diagnos is: ICD-10- CM F43.10 Post-tr aumatic stress disorde r, unspeci fied
BENSON MAYA 07/15 [place] [facility] [place] [facility] Outpatient Encounter [id number] 08/07 [place] [facility] [place] [facility] Outpatient Encounter [id number] 08/09 [place] [facility] [place] [facility] Outpatient Encounter [id number] Carl OSMAN 08/10 [place] [facility] [place] [facility] Outpatient Encounter [id number] 08/10 [place] [facility] [place] [facility] Outpatient Encounter [id number] Diagnos is: ICD-10- CM 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
Nahum AVITIA 08/10 [facility] [place] [facility] Outpatient Encounter [id number] 08/11 [facility] [place] [facility] Outpatient Encounter [id number] 08/11 [place] [facility] [place] [facility] Outpatient Encounter [id number] 08/18 [facility] [place] [facility] Outpatient Encounter [id number] 08/19 [place] [facility] [place] [facility] OFF/OP EST MAY X REQ PHY/QHP [id number] Diagnos is: ICD-10- CM F43.10 Post-tr aumatic stress disorde r, unspeci fied
TARA LOWE 08/19 [place] [facility] [place] [facility] Outpatient Encounter [id number] Diagnos is: ICD-10- CM F43.10 Post-tr aumatic stress disorde r, unspeci fied
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 ing<br/ > KEVEN SCHULZT 08/25 [facility] [place] [facility] Outpatient Encounter [id number] 08/30 [place] [facility] [place] [facility] Outpatient Encounter [id number] 08/31 [facility] [place] [facility] Outpatient Encounter [id number] 09/01 [place] [facility] [place] [facility] Outpatient Encounter [id number] 09/03 [place] [facility] [place] [facility] Outpatient Encounter [id number] 09/08 [place] [facility] [place] [facility] Outpatient Encounter [id number] 09/09 [place] [facility] [place] [facility] Outpatient Encounter [id number] MILAGROS MENDEZ 09/09 [place] [facility] [place] [facility] Outpatient Encounter [id number] Diagnos is: ICD-10- CM F43.10 Post-tr aumatic stress disorde r, unspeci fied
BENSON MAYA 09/15 [place] [facility] [place] [facility] Outpatient Encounter [id number] 09/16 [place] [facility] [place] [facility] Outpatient Encounter [id number] 09/21 [place] [facility] [place] [facility] Outpatient Encounter [id number] 09/24 [place] [facility] [place] [facility] Outpatient Encounter [id number] 09/24 [place] [facility] [place] [facility] Outpatient Encounter [id number] 09/25 [place] [facility] [place] [facility] Outpatient Encounter [id number] 09/29 [facility] OFFICE O/P EST MOD 30-39 MIN [id number] Diagnos is: ICD-10- CM S22.009 S Unsp fractur e of unspeci fied thoraci c vertebr a, sequela
GLADSY HENDERSON NJAMIN E 10/04 [facility] Outpatient Encounter [id number] 10/12 [facility] Outpatient Encounter [id number] Diagnos is: ICD-10- CM F43.10 Post-tr aumatic stress disorde r, unspeci fied
BENSON MAYA 10/28 [facility] Outpatient Encounter [id number] 11/02 [facility] Outpatient Encounter [id number] PREMA WOODS 11/04 [facility] Outpatient Encounter [id number] 11/05 [facility] OFF/OP CONSLTJ NEW/EST HI 55 [id number] Diagnos is: ICD-10- CM S22.060 A Wedge kala iván fractur e of T7-T8 vertebr a, init
ARTHUR CARLIN 12/08 [facility] [place] [facility] OFFICE O/P EST MOD 30-39 MIN [id number] Diagnos is: ICD-10- CM M25.552 Pain in left hip<br/ > DIANE SHAH A 12/10 [place] [facility] [place] [facility] Outpatient Encounter [id number] 12/27 [facility] [place] [facility] Outpatient Encounter [id number] Diagnos is: ICD-10- CM S32.000 S Wedge kala iván fractur e of unsp lumbar vertebr a, sequela
ARTHUR CARLIN 01/03 [facility] Outpatient Encounter [id number] 01/18 [facility] Outpatient Encounter [id number] 01/30 [facility] [place] [facility] Outpatient Encounter [id number] 02/01 [facility] [place] [facility] Outpatient Encounter [id number] DANIEL ROSENBAUM 02/01 [facility] Outpatient Encounter [id number] 02/01 [facility] OFFICE O/P EST LOW 20-29 MIN [id number] Diagnos is: ICD-10- CM Z47.89 Encount er for other orthope dic afterca re
DIANE SHAH A 02/07 [facility] [place] [facility] Outpatient Encounter [id number] 02/07 [facility] OFFICE O/P EST HI 40-54 MIN [id number] Diagnos is: ICD-10- CM M06.4 Inflamm atory polyart hropath y
GLADYS HENDERSON NJAMIN E 02/07 [facility] [place] [facility] THER/PROPH /DIAG IV INF INIT [id number] Diagnos is: ICD-10- CM E83.42 Hypomag nesemia
Juan BOCANEGRA VIDHYA L 02/07 [facility] [place] [facility] OFFICE O/P EST MOD 30-39 MIN [id number] Diagnos is: ICD-10- CM F43.10 Post-tr aumatic stress disorde r, unspeci fied
CHRISTAL BOWERSUES T 02/24 [facility] [place] [facility] Outpatient Encounter [id number] 03/11 [facility] [place] [facility] Outpatient Encounter [id number] 03/30 [facility] [place] [facility] Outpatient Encounter [id number] 05/10 [facility] [place] [facility] Outpatient Encounter [id number] Diagnos is: ICD-10- CM F43.10 Post-tr aumatic stress disorde r, unspeci fied
CHRISTAL BOWERSUES T 05/19 [facility] [place] [facility] Outpatient Encounter [id number] 05/20 [facility] [place] [facility] Outpatient Encounter [id number] 05/31 [facility] [place] [facility] OFFICE O/P EST HI 40 MIN [id number] Diagnos is: ICD-10- CM M06.4 Inflamm atory polyart hropath y
GLADYS HENDERSON NJAMIN E 06/02 [facility] [place] [facility] OFFICE O/P EST HI 40 MIN [id number] Diagnos is: ICD-10- CM M06.4 Inflamm atory polyart hropath y
MARCY PEREZ 07/07 [place] [facility] [place] [facility] Outpatient Encounter [id number] GLADYS HENDERSON NJAMIN E [place] [facility] OFFICE O/P EST MOD 30 MIN [id number] Diagnos is: ICD-10- CM F43.10 Post-tr aumatic stress disorde r, unspeci fied
CHRISTAL BOWERS T 07/20 [facility] Outpatient Encounter [id number] 07/20 [facility] OFF/OP CNSLTJ NEW/EST LOW 30 [id number] Diagnos is: ICD-10- CM M25.552 Pain in left hip<br/ > VIVIEN JOSEPH 07/31 [place] [facility] Outpatient Encounter [id number] 07/31 [facility] Outpatient Encounter [id number] 08/08 [place] [facility] Outpatient Encounter [id number] Diagnos is: ICD-10- CM F43.10 Post-tr aumatic stress disorde r, unspeci fied
CHRISTAL BOWERSUES T 08/21 [facility] [place] [facility] Outpatient Encounter [id number] 08/22 [place] [facility] [place] [facility] Outpatient Encounter [id number] Diagnos is: ICD-10- CM F10.10 Alcohol abuse, uncompl icated< br/> GLADYS HENDERSON NJAMIN E 08/29 [facility] Outpatient Encounter [id number] Diagnos is: ICD-10- CM M25.552 Pain in left hip<br/ > VIVIEN JOSEPH 08/30 [facility] Outpatient Encounter [id number] 09/06 [facility] Outpatient Encounter [id number] 09/07 [facility] Outpatient Encounter [id number] SYSTEM,CIS -ARK 09/21 [facility] EMERGENCY DEPT VISIT MOD MDM [id number] Diagnos is: ICD-10- CM F10.10 Alcohol abuse, uncompl icated< br/> ROSALEE DODD 09/21 [facility] CRISIS INTERVEN SVC, 15 MIN [id number] Diagnos is: ICD-10- CM F10.10 Alcohol abuse, uncompl icated< br/> LUIS ANTONIO STANLEY 09/21 [facility] Inpatient Encounter [id number] Admit Reason: ETOH USE DISORDE R
MADAI KHOURY 09/21 [facility] Inpatient Encounter [id number] 09/21 [facility] 1ST HOSP IP/OBS SF/LOW 40 [id number] [id number] Diagnos is: ICD-10- CM F10.10 Alcohol abuse, uncompl icated< br/> MADAI KHOURY 09/21 [facility] Inpatient Encounter [id number] 09/22 [place] [facility] [place] [facility] Inpatient Encounter [id number] 09/22 [facility] [place] [facility] SBSQ HOSP IP/OBS HIGH 50 [id number] [id number] Diagnos is: ICD-10- CM I95.1 Orthost atic hypoten iván
Raysa GIBSON 09/22 [facility] [place] [facility] Inpatient Encounter [id number] 09/22 [facility] [place] [facility] Inpatient Encounter [id number] 09/22 [facility] [place] [facility] Inpatient Encounter [id number] 09/22 [facility] [place] [facility] Inpatient Encounter [id number] 09/22 [facility] Outpatient Encounter [id number] 09/22 [facility] Procedures Combined list of: 1) Procedures from Department of [facility] Affairs facilities going back up to thelast 18 months, not all [place] non-surgical procedures are included; 2) All procedures from the Department of [facility] facilities. Procedure Procedure Type Code Date Perfomer Comments Sourc e Health And Behav A e mt Each 15 Min Initial A e ment Health And Behav Assessmt Each 15 Min Initial Assessment 42912 012 ANDREA RUANO [facility] Spectacles Services Fitting Monofocal Except For Aphakia Spectacles Services Fitting Monofocal Except For Aphakia 63656 012 SIERRA OAKES DoD Visual Function Screening Visual Function Screening 91393 [place] Threshold Audiogram (Pure Tone) Threshold Audiogram (Pure Tone) 47172 012 SCARLETT DIOR DoD Immunization Administration By Injection, One Vaccine Immunization Administration By Injection, One Vaccine 84317 KARMA FERNANDEZ [facility] Skin Test Anergy Tuberculin Intradermal Skin Test Anergy Tuberculin Intradermal 34101 KARMA FERNANDEZ IPPD; Series #: 1; .1 mL; ID; Right Arm; Mfg: [employer]; Lot: [id number]; VIS given. [facility] Influenza Virus Vaccine Intranasal Live Attenuated KARMA FERNANDEZ Influenza, Live, Intranasal; Series #: 1; .1 mL; IN; Right Arm; Mfg: Jibe; Lot: [id number]; VIS given (Macrnia: 12/08/10). [facility] Electrocardiogram Electrocardiogram 17127 02/02 ROSY GUIDO Vent Rate: 78 BPM MT: 162 MS QRS: 86 MS QT: 370 MS [facility] Venipuncture Venipuncture 98141 ROSY GUIDO Collected from right arm [facility] Non-Physician Phone Call To Patient/Provider Brief (5-10min) Non-Physician Phone Call To Patient/Provider Brief (5-10min) 44990 011 OJVANNA COLLAZO Coordinated care fee, maintenance rate JOVANNA COLLAZO [facility] Case Management, each 15 minutes 011 JOVANNA COLLAZO Special Physician Services Analysis Of Computerized Data Special Physician Services Analysis Of Computerized Data 04551 RAYMUNDO ZAPIEN Physician Supervised Group Educational Services RAYMUNDO ZAPIEN Audiometry Group Testing Audiometry Group Testing 66953 RAYMUNDO ZAPIEN Physician Supervised Services Provision Of Special Supplies Physician Supervised Services Provision Of Special Supplies 62134 RAYMUNDO ZAPIEN Threshold Audiogram (Pure Tone) Threshold Audiogram (Pure Tone) 57873 RAYMUNDO ZAPIEN ENT Services ENT Services 27820 RAYMUNDO ZAPIEN Social History Combined list of available smoking, tobacco, and other social history from 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 Social History Type Response Date Comment Sourc e Tobacco smoking status IDIS VA-TOBACCO QUIT 5 TO < 15 YRS 06/02/2023 [facility] History of tobacco use VA-TOBACCO FORMER USER 06/02/2023 [facility] History of tobacco use VA-TOBACCO FORMER USER 05/21/2022 [facility] History of tobacco use VA-TOBACCO FORMER USER 11/12/2020 [facility] History of tobacco use INPT NO TOBACCO U SE IN LAST 30 DAYS 05/31/2019 [facility] History of tobacco use VA-TOBACCO FORMER USER 11/08/2017 [facility] History of tobacco use FORMER TOBACCO US E >1Y <7Y 05/11/2017 [facility] History of tobacco use FORMER TOBACCO US E >1Y <7Y 08/04/2016 [facility] History of tobacco use FORMER TOBACCO USE <1Y 08/04/2015 [facility] History of tobacco use CURRENT TOBACCO USER 08/13/2014 [facility] History of tobacco use FORMER TOBACCO US ER 7Y OR GREATER 10/10/2013 [facility] History of tobacco use CURRENT TOBACCO USER 05/26/2012 [facility] History of tobacco use CURRENT TOBACCO USER 11/19/2009 [facility] History of tobacco use CURRENT TOBACCO USER 11/25/200505/17 ppd. [facility] This section is an empty social history section. [facility] Plan of Care List of future care activities from Department of Veterans [facility] facilities. Additional future care activities may be listed in the Assessment and Plan section. Date/Time Care Activity Care Activity Detail Facili ty 09/27/2023 AMBULATORY - PSYCHIATRY AMBULATORY - PSYC [facility] 11/10/2023 AMBULATORY - MEDICINE AMBULATORY - MEDICI [facility] 11/10/2023 AMBULATORY - MEDICINE AMBULATORY - MEDICI [facility] 01/02/2024 AMBULATORY - MEDICINE AMBULATORY - MEDICI [place] [facility] 01/02/2024 AMBULATORY - MEDICINE AMBULATORY - MEDICI [facility] 09/08/2023 Laboratory - Baseball Player ry Order COMPREHENSIVE METABOLIC PANEL+MG PLASMA SP ONCE [facility] 09/08/2023 Laboratory - Baseball Player ry Order CBC BLOOD SP ONCE [facility] 09/22/2023 Consult Order IF RESIDENTIAL REHABILITATION TREATMENT [facility] Cons Medical Library Assistant's Choice [facility] 09/23/2023 Laboratory - Microbi ology Order CULTURE and SUSCEPTIBILITY SPUTUM WC [facility] 09/23/2023 Laboratory - Microbi ology Order GRAM STAIN SPUTUM WC [facility] 09/23/2023 Laboratory - Microbi ology Order CULTURE and SUSCEPTIBILITY BLOOD [facility] 09/23/2023 Laboratory - Microbi ology Order CULTURE and SUSCEPTIBILITY BLOOD [facility] 09/24/2023 Laboratory - Baseball Player ry Order CBC and DIFF BLOOD [facility] 09/24/2023 Laboratory - Baseball Player ry Order COMPREHENSIVE METABOLIC PANEL+MG PLASMA [facility] 09/24/2023 Laboratory - Baseball Player ry Order LACTIC ACID PLASMA UNITS [facility] 09/24/2023 Laboratory - Baseball Player ry Order D-DIMER PLASMA [facility] Advance Directives List of completed, amended, or rescinded Advance Directives on record at Department of [facility] facilities. An actual copy of the Directive is not included. Date Advance Directive Provider Source 05/11/2006 ADVANCE DIRECTIVE ASH RAZO [facility]
--- OUTSIDE RECORDS SUMMARY | 2023-09-23 17:08 | XMS_ITS | Encounter Summary ---
Author Name [facility] Organization [facility] Address [address] [place] [address] Support Name Relationship Address Phone MARIBELL VITO Next of Kin [id number] [address] MARIBELL, VITO Emergency Contact [phone] [place] [address] Insurance Providers: All historical and current Section Date Range: From patient's date of to the date document was created. This section includes the names of all active insurance providers for the patient. Insurance Provider Type of Coverage Plan Name Start of Policy Coverage End of Policy Coverage Group Number Member ID Insurance Provider's Telephone Number Policy Hurt's Name Patient's Relationship to Policy Hurt [facility] (WNR) MEDICARE ADVANTAGE [facility] (WNR) May 16, 2023 [id number] JEAN JAIN IN PATIENT Selected Encounter This section includes the information on record at [place] for the Encounter. Date/Time Encounter Type Encounter Description Reason Provider Source Dec 10, 2022 11:00 AM OFFICE O/P EST MOD 30-39 MIN ORTHO/JOINT SURG ICD-10-CM M25.552 Pain in left hip SERGIO SHAH Zeke Encounter Template Text not used by [place] Assessments - Encounter Diagnoses This section includes the primary and secondary diagnoses documented for the Encounter. Date/Time Primary/Secondary Diagnosis Diagnosis Name Provider Source Dec 10, 2022 10:59 AM PRIMARY Pain in left hip DAVID CHAVEZ [facility] Plan of Treatment: Future Appointments (+ 6 months) and Future Tests (+/- 45 days) The Plan of Treatment section includes future care activities for the patient from all [facility] treatment[facility]. This section includes future appointments and future orders which are active, pending or scheduled. Future Appointments This section includes appointments that were scheduled to occur 6 months from the date of the Encounter, up to a maximum of 20 appointments. The data comes from all [place] treatment facilities. Appointment Date/Time Appointment Type Appointme nt Facility Name Dec 16, 2022 01:15 PM AMBULATORY - NONE [facility] [facility] Dec 27, 2022 05:10 PM AMBULATORY - REH[place]IC[place] [facility] Jan 03, 2023 11:15 AM AMBULATORY - SURGERY [place] [facility] [facility] Jan 12, 2023 09:15 AM AMBULATORY - NONE [place] [facility] Feb 01, 2023 02:13 PM AMBULATORY - NONE [place] [facility] [facility] Feb 07, 2023 09:00 AM AMBULATORY - NONE [place] [facility] Feb 07, 2023 09:30 AM AMBULATORY - SURGERY [place] [facility] [facility] Feb 07, 2023 11:00 AM AMBULATORY - NONE [place] [facility] Feb 07, 2023 12:00 PM AM[place]UL[place]ORY - [place]ICINE [place] [facility] Feb 07, 2023 02:00 PM [place]UL[place]ORY - MEDICINE [place] [facility] Feb 24, 2023 10:15 AM AMBULATORY [place]CHIAT[place] [facility] Mar 11, 2023 12:00 PM AMBULATORY - NONE [place] [facility] Mar 28, 2023 10:00 AM AMBULATORY - NONE [place] [facility] Mar 30, 2023 08:30 AM AMBULATORY - NONE [place] [facility] Mar 30, 2023 09:00 AM AMBULATORY - NONE [place] [facility] May 02, 2023 08:30 AM AMBULATORY - NONE [place] [facility] May 19, 2023 10:15 AM AMBULATORY - PS[place]CHIATRY [place] [facility] Jun 02, 2023 10:00 AM AMBULATORY - NONE [place] [facility] Jun 02, 2023 11:00 AM AMBULATORY - MEDICINE [place] [facility] Jun 02, 2023 12:00 PM AMBULATORY - NONE [place] [facility] Social History: Smoking Status (Most current) and Tobacco Use (All prior to encounter date) This section includes the most current, and the historical, smoking and tobacco- related health factors from the [place] facility where the Encounter took place. Current Smoking Status This section includes the most current smoking, or tobacco-related health factor, from the [place] facility where the Encounter took place. Date/Time Current Smoking Status Comment Facil ity May 21, 2022 10:30 AM VA-TOBACCO FORMER USER [facility] Tobacco Use History This section includes a history of the smoking, or tobacco-related health factors, that were collected on or before the date of the Encounter. The data comes from the [place] facility where the Encounter took place. Date/Time Smoking Status/Tobacco Use Comment F acility May 21, 2022 10:30 AM VA-TOBACCO QUIT 15 YRS OR MORE [facility] Nov 12, 2020 12:00 PM VA-TOBACCO FORMER USER [facility] Nov 12, 2020 12:00 PM VA-TOBACCO QUIT 5 TO < 15 YRS [facility] May 31, 2019 06:22 AM INPT NO TOBACCO USE IN LAST 30 D AYS [facility] Nov 08, 2017 01:55 PM VA-TOBACCO FORMER USER [facility] Nov 08, 2017 01:55 PM [place] QU[place] 1 TO < 5 YRS [facility] May 11, 2017 12:43 PM FORMER TOBACCO USE >1Y <7Y [facility] Aug 04, 2016 10:25 AM FORMER TOBACCO USE >1Y <7Y [facility] Aug 04, 2015 11:31 AM FORMER TOBACCO USE <1Y [facility] Aug 13, 2014 10:50 AM CURRENT TOBACCO USER [facility] October 10, 2013 09:12 AM FORMER TOBACCO USER 7Y OR GREATE R [facility] May 26, 2012 10:14 AM CURRENT TOBACCO USER [facility] Nov 19, 2009 12:07 PM CURRENT TOBACCO USER [facility] Advance Directives: All historical and current Section Date Range: From patient's date of to the date document was created. This section includes ALL of a patient's completed or amended [place] Advance and Rescinded Directives. The entries below indicate that a directive exists for the patient, but an actual copy is not included with this document. The data comes from all [facility]. Date Advance Directives Provider Source May 11, 2006 ADVANCE DIRECTIVE ASH RAZO [facility] Radiology Reports: +/- 30 days of the encounter Radiology Reports For cases when an order for radiology services may have been completed prior to the date of the Encounter, the report list includes the Radiology Reports that were completed up to 30 days before dateof the Encounter. For cases when an order for radiology services may have been completed after the date of the Encounter, the report list also includes the Radiology Reports that were completed up to30 days after date of the Encounter. The data comes from all [place] treatment facilities. Date/Time Radiology Report Provider Source Dec 16, 2022 12:49 PM DXA BONE DENSITY: CALVIN JAIN [id number] -1955 M Exm Date: DEC 16, 2022@12:49 Req Phys: HA HENDERSON Loc: [facility] (Req'g Img Loc: [facility] Service: Unknown (Case [id number] COMPLETE) DXA BONE DENSITY AXIAL (NM Detailed) CPT:69428 Reason for Study: thoracic vertebral fracture (Case [id number] COMPLETE) TECHNICAL CALC OF TBS (TRABECULAR(NM Detailed) CPT:59876 Clinical History: [place] IS NOT under investigation for COVID-19 or is COVID-19 negative 66 yo M w/ hx of HTN, obesity, who has pelvic fracture/ multiple vertebral fractures: left anterior column posterior acetabular fracture, bilateral superior and inferior pubic rami fracture and T8/T11/L2/L3 endplate fractures. qualifies for empiric treatment for osteoporosis. no sx of radiculopathy. was following w/ Neurosurgery at [facility] ([facility]). pain is managed reasonably well. hasn't used opiods for one wk. - Neurosurgery referral for guidance on TLSO bracing and f/u - Metabolic referral - labs: test, LH, FSH, PRL, TSH, vit D - DEXA scan - tylenol PRN Responsible provider name and phone number to notify for critical findings if other than user placing the order and pager listed below: User placing orders pager: [phone] LAST CREATININE 1.3 H (06/18/22) Report Status: Verified Date Reported: DEC 17, 2022 Date Verified: DEC 17, 2022 Analysis Or Research Safety Inspector E-Sig:/ES/ITA CLAUDIO MD, FACR, CCD Report: DXA BONE DENSITY SCAN INDICATION: History of multiple fractures.. CLINICAL INFORMATION: The patient reportedly is currently on treatment with alendronate.. 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 Model: emaze A. TECHNIQUE/LIMITATIONS: The technical quality of the study is good. RESULTS: Lumbar Spine (L1-L4): BMD: 0.947 g/cm2. T-score: -0.9. Z-score: -0.5. Femoral Neck: Left. BMD: 0.855 g/cm2. T-score: 0.1. Z-score: 0.5. Total Hip: Left. BMD: 0.882 g/cm2. T-score: -0.5. Z-score: -0.4. Impression: Diagnosis WHO Classification: Normal. FRAX 10-year Fracture Risk: FRAX not reported because: All T-scores for Spine Total, Hip Total, Femoral Neck at or above -1.0 Prior hip or vertebral fracture. COMMENTS: None. Primary Diagnostic Code: NO ALERT REQUIRED Primary Interpreting Staff: ITA LCAUDIO MD, FACR, STAFF RADIOLOGIST (Analysis Or Research Safety Inspector) /BSF ITA CLAUDIO [facility] Dec 10, 2022 10:49 AM PELVIS JUDET VIEWS (P): CALVIN JAIN [id number] -1955 M Exm Date: DEC 10, 2022@10:49 Req Phys: DAVID CHAVEZ Pat Loc: [facility] (Req'g Loc Img Loc: MAIN X-RAY Service: Unknown (Case [id number] COMPLETE) PELVIS 3 VIEWS OR MORE (RAD Detailed) CPT:22856 Reason for Study: acetabulum fx Clinical History: [place] IS NOT under investigation for COVID-19 or is COVID-19 negative acetabulum fx Responsible provider name and phone number to notify for critical findings if other than user placing the order and pager listed below: User placing orders pager: [phone] LAST CREATININE 1.0 (11/02/22) Report Status: Verified Date Reported: DEC 10, 2022 Date Verified: DEC 10, 2022 Analysis Or Research Safety Inspector E-Sig:/ES/JENNY WHITMAN MD Report: PELVIS 3 VIEWS OR MORE, PELVIS 3 VIEWS OR MORE 12/10/2022 10:49 AM History: acetabulum fx Comparison: 10/04/2022 Impression: AP, inlet, outlet and oblique views of the pelvis. Healing fractures of the right superior and bilateral inferior pubic rami. Minimal displacement of the right superior ramus fracture fragments, unchanged. Healing fracture of the superomedial left acetabulum with increased adjacent callus. The acetabular fracture extends to the lateral aspect of the left superior pubic ramus. Mild degenerative changes of the sacroiliac joints and left hip. Primary Interpreting Staff: JENNY WHITMAN MD, STAFF RADIOLOGIST (Analysis Or Research Safety Inspector) /JENNY RAE [facility] Dec 10, 2022 10:45 AM PELVIS INLET-OUTLE T VIEWS (P): CALVIN JAIN [id number] -1955 M Exm Date: DEC 10, 2022@10:45 Req Phys: DAVID CHAVEZ Pat Loc: [facility] (Req'g Loc Img Loc: MAIN X-RAY Service: Unknown (Case [id number] COMPLETE) PELVIS 3 VIEWS OR MORE (RAD Detailed) CPT:87262 Reason for Study: pelvic fxs Clinical History: [place] IS NOT under investigation for COVID-19 or is COVID-19 negative pelvic fxs Responsible provider name and phone number to notify for critical findings if other than user placing the order and pager listed below: User placing orders pager: [phone] LAST CREATININE 1.0 (11/02/22) Report Status: Verified Date Reported: DEC 10, 2022 Date Verified: DEC 10, 2022 Analysis Or Research Safety Inspector E-Sig:/ES/JENNY WHITMAN MD Report: PELVIS 3 VIEWS OR MORE, PELVIS 3 VIEWS OR MORE 12/10/2022 10:49 AM History: acetabulum fx Comparison: 10/04/2022 Impression: AP, inlet, outlet and oblique views of the pelvis. Healing fractures of the right superior and bilateral inferior pubic rami. Minimal displacement of the right superior ramus fracture fragments, unchanged. Healing fracture of the superomedial left acetabulum with increased adjacent callus. The acetabular fracture extends to the lateral aspect of the left superior pubic ramus. Mild degenerative changes of the sacroiliac joints and left hip. Primary Interpreting Staff: JENNY WHITMAN MD, STAFF RADIOLOGIST (Analysis Or Research Safety Inspector) /JENNY RAE [facility] Dec 10, 2022 09:02 AM LUMBAR SPINE MIN 4 VIEWS: CALVIN JAIN [id number] -1955 M Exm Date: DEC 10, 2022@09:02 Req Phys: LINSEY CARLIN Pat Loc: [facility] NEUROSURGERY GLOBE CHANGER CONSULT-B Img Loc: MAIN X-RAY Service: Unknown (Case [id number] COMPLETE) LUMBAR SPINE MIN 4 VIEWS (RAD Detailed) CPT:99444 Reason for Study: F/u L2 and L3 fractures Clinical History: Pt has appt already on Sunday 12/10 for pelvic films. Can these be combined? [place] IS NOT under investigation for COVID-19 or is COVID-19 negative Lumbar films to eval fractures of L2 and L3 Responsible provider name and phone number to notify for critical findings if other than user placing the order and pager listed below: User placing orders pager: LAST CREATININE 1.0 (11/02/22) Report Status: Verified Date Reported: DEC 10, 2022 Date Verified: DEC 10, 2022 Analysis Or Research Safety Inspector E-Sig:/ES/TERESITA CALZADA DO Report: EXAMINATION: LUMBAR SPINE MIN 4 VIEWS 12/10/2022 9:02 AM INDICATION: F/u L2 and L3 fractures COMPARISON: 10/04/2022 Impression: Five lumbar-type vertebral bodies. Mild levoscoliosis. Sagittal alignment is preserved. Stable compression deformities of the superior endplates of L2 and L3. No new compression fracture identified. Mild multilevel endplate osteophytic change. Intervertebral disc space height is fairly well-preserved. There are facet joint degenerative changes in the lower lumbar spine. The pubic symphysis and SI joints are intact. Primary Interpreting Staff: TERESITA CALZADA DO, RADIOLOGIST (Analysis Or Research Safety Inspector) /DDS TERESITA CALZADA [facility] Dec 10, 2022 09:02 AM THORACIC SPINE 3 V IEWS: CALVIN JAIN [id number] -1955 M Ex Date: DEC 10, 2022@09:02 Req Phys: LINSEY CARLIN Pat Loc: [facility] NEUROSURGERY GLOBE CHANGER CONSULT-B Img Loc: MAIN X-RAY Service: Unknown (Case [id number] COMPLETE) THORACIC SPINE 3 VIEWS (RAD Detailed) CPT:59189 Reason for Study: Eval alignmnet from back fractures Clinical History: Pt has an appt for TUESDAY xrays of pelvis on 12/10 . Can these combined? IS NOT under investigation for COVID-19 or is COVID-19 negative Eval Thoracic fx and alignment .Hx t7,8,11,12 fractures Responsible provider name and phone number to notify for critical findings if other than user placing the order and pager listed below: User placing orders pager: LAST CREATININE 1.0 (11/02/22) Report Status: Verified Date Reported: DEC 10, 2022 Date Verified: DEC 10, 2022 Analysis Or Research Safety Inspector E-Sig:/ES/TERESITA CALZADA DO Report: EXAMINATION: THORACIC SPINE 3 VIEWS 12/10/2022 9:02 AM INDICATION: Eval alignment from back fractures COMPARISON: Radiograph 10/04/2022. CT 06/18/2022 Impression: Stable mild anterior wedge deformity of T8. Compression deformity of the superior endplate of T11 appears stable. Subtle compression deformity of the superior endplate of T4 appears stable to prior CT. There may be subtle anterior wedging of T12. Sagittal alignment appears preserved. Mild endplate osteophytic changes in the lower thoracic spine. Visualized cardiomediastinal structures appear grossly stable. Primary Interpreting Staff: TERESITA CALZADA DO, RADIOLOGIST (Analysis Or Research Safety Inspector) /DDS TERESITA CALZADA [facility] Dec 10, 2022 09:02 AM HIP LEFT 2 VIEWS W /PELVIS: JAINCALVINMICHAEL PEREZER [id number] -1955 Exm Date: DEC 10, 2022@09:02 Req Phys: RENAE JOSEPH Pat Loc: [facility] (Req'g Img Loc: MAIN X-RAY Service: Unknown (Case [id number] COMPLETE) HIP LEFT 2 VIEWS W/PELVIS (RAD Detailed) CPT:20846 Reason for Study: left hip pain Clinical History: [place] IS NOT under investigation for COVID-19 or is COVID-19 negative left acetabular fx, pubic rami fx Responsible provider name and phone number to notify for critical findings if other than user placing the order and pager listed below: User placing orders pager: [phone] ortho LAST CREATININE 1.3 H (06/18/22) Report Status: Verified Date Reported: DEC 10, 2022 Date Verified: DEC 10, 2022 Analysis Or Research Safety Inspector E-Sig:/ES/JUANITA AC MD Report: HIP LEFT 2 VIEWS W/PELVIS 12/10/2022 9:02 AM HISTORY: Left hip pain; fractures of the left acetabulum and pubic rami. TECHNIQUE: AP upright pelvis radiograph, and AP upright and frog-leg lateral radiographs of the left hip. COMPARISON: 10/02/2022. Impression: FINDINGS/IMPRESSION: Fractures involving the right superior and bilateral inferior pubic rami have not appreciably changed in radiographic appearance. Relatively advanced corresponding osseous healing is suspected. Mild displacement again involves the right superior pubic ramus fracture fragments. There has been no appreciable interval change in the radiographic appearance of a left acetabular fracture, which extends to the superomedial left acetabulum. Relatively advanced associated osseous healing is suspected. No new fracture is identified. There is no dislocation. Mild left hip osteoarthritis is again present. There is relative preservation of the right hip joint space, without significant corresponding degenerative changes. The bilateral sacroiliac joints are unremarkable. Primary Interpreting Staff: JUANITA AC MD, RADIOLOGIST (Analysis Or Research Safety Inspector) /[facility] JUANITA AC [facility] Encounter Notes: All associated encounter notes This section contains the clinical notes associated to the Encounter. Date/Time Encounter Note(s) Provider Source Dec 10, 2022 10:30 AM ORTHOPEDIC SURGERY CONSULT: LOCAL TITLE: ORTHOPEDIC CONSULT STANDARD TITLE: ORTHOPEDIC SURGERY CONSULT DATE OF NOTE: DEC 10, 2022@10:30 ENTRY DATE: DEC 10, 2022@10:30:31 AUTHOR: DAVID CHAVEZ EXP COSIGNER: URGENCY: STATUS: COMPLETED Orthopaedic Surgery Consultation Note CC: left hip pain HPI: Patient is a 67-year-old male who presents today to establish care for bilateral superior and inferior pubic rami fractures and a left anterior column acetabulum fracture. Patient reports that in July of this year he fell down about half a flight of stairs. He presented to [facility] where he was found to have T8, T11, L2, L3, bilateral pubic rami fractures as well as a left anterior column acetabulum fracture. This was initially followed by neurosurgery and orthopedics at [facility]. He was made nonweightbearing for 8 weeks in his left lower extremity and is now weight-bear as tolerated. Patient reports that he initially was discharged to a rehab facility and then received 2 weeks of in-home physical therapy. He was subsequently discharged from physical therapy and feels comfortable with his therapy exercises. Patient reports that he has continued to advance his activity. The pain continues to improve but he still notes left hip pain when he rolls onto his left side. He is now able to walk up to a block and feels that overall his pain and mobility are improving. Denies any numbness or tingling in his bilateral lower extremities. At baseline, he is a community ambulator. He is now ambulating with a cane most of the time and will use a wheelchair for longer distances. PMH: Active problems - Computerized Problem List is the source for the followin. Osteoarthritis of knee (SNOMED CT 662853714) 2. Primary Obesity 3. Screening for Ischemic Heart Disease 4. Primary insomnia 5. Low back pain (SNOMED CT 844094414) 6. Sacroiliitis 7. Tobacco Use Disorder, Continuous - Quit cigarettes 2012 8. Sensorineural Hearing Loss, Bilateral 9. Pseudogout - Left knee 10. Hyperlipidemia (SNOMED CT 07392598) 11. Obstructive Sleep Apnea (Adult) (Pediatric) - 07/06/12 Mild: PRDI 16.4: on CPAP. 12. Depression * 13. 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 Compression fracture of thoracic spine (SNOMED CT 290187860) 16. PAIN, NECK/CERVICALGIA 17. Posttraumatic stress disorder - has service dog 18. Knee pain 19. OEF/OIF EXPOSURE TO BURN PIT SMOKE 20. OEF/OIF EXPOSURE TO SANDSTORMS/DUSTSTORMS 21. Dyspnea on exertion (SNOMED CT 41527132) 22. Dyspnea on exertion 23. Pain radiating to right side of chest 24. Hypertension 25. Inflammatory polyarthritis 26. High risk drug monitoring status Past Surgical History: SURGERIES - NONE FOUND Family History: Non-contributory Social History: 1. Tobacco -denies 2. Alcohol -occasional 3. Illicit Drug Use - denies Objective: General: Awake, Alert, Oriented X3, No apparent distress Cardio: RRR Lungs: NLB on room air RLE: - Skin intact throughout, no rashes or erythema - Non-TTP throughout extremity - Able to SLR, 4+/5 strength - SILT niles, saph, tib, SP, and DP distribs - Fires quad, hamstrings, TA, GSC, EHL, FHL, wiggles lesser toes - 2+ DP pulse LLE: - Skin intact throughout, no rashes or erythema - Non-TTP throughout extremity - Able to SLR, 4/5 strength - SILT niles, saph, tib, SP, and DP distribs - Fires quad, hamstrings, TA, GSC, EHL, FHL, wiggles lesser toes - 2+ DP pulse Labs: LAB RESULTS LAST 48 HRS - NONE FOUND Imaging X-ray pelvis obtained today demonstrates callus formation about bilateral superior and inferior pubic rami fractures as well as callus formation about anterior column acetabular fracture. Assessment/Plan: 67-year-old male who presents today to establish care for bilateral superior and inferior pubic rami fractures and a left anterior column acetabulum fracture sustained 08/05. Patient has been progressing appropriately with nonoperative management at this time there is no indication for operative management. AP pelvis obtained today, we will plan for patient to also obtain judet/inlet/outlet x-rays today. He may continue activity and weightbearing as tolerated. He will follow-up in 2 months with AP pelvis/today/inlet/outlet x- rays. /ubaldo/ DAVID CHAVEZ MD, [facility] RESIDENT Signed: 12/10/2022 10:59 DAVID CHAVEZ [facility]
--- OUTSIDE RECORDS SUMMARY | 2023-09-23 17:08 | XMS_ITS | Encounter Summary ---
Author Name [employer] of [employer]a [employer] Organization [facility] [employer] Address [address] [place] [address] Support Name Relationship Address Phone MARIBELL, VITO Next of Kin [phone] [place] [address] MARIBELLVITO GUILLERMO Emergency Contact [id number] [place] [address] Insurance Providers: All historical and [...] Hurt's Name Patient's Relationship to Policy Hurt [facility] (WNR) MEDICARE ADVANTAGE [facility] (WNR) May 16, 2023 [id number] JEAN JAIN IN PATIENT Selected Encounter This section includes the information on record at [place] for the Encounter. Date/Time Encounter Type Encounter Description Reason Provider Source October 04, 2022 03:00 PM OFFICE O/P EST MOD 30-39 MIN PRIMARY CARE/MEDICINE ICD-10-CM S22.009S Unsp fracture of unspecified thoracic vertebra, sequela MATI HENDERSON IN E I[facility] Encounter Template Text not used by [place] Assessments - Encounter Diagnoses This section includes the primary and secondary diagnoses documented for the Encounter. Date/Time Primary/Secondary Diagnosis Diagnosis Name Provider Source October 08, 2022 10:05 AM PRIMARY Unsp fracture of unspecified thoracic vertebra, sequela GIORGIO HENDERSON [facility] October 08, 2022 10:05 AM SECONDARY Essential (primary) hypertension GIORGIO HENDERSON [facility] October 08, 2022 10:05 AM SECONDARY Multiple fx of pelvis w/o disrupt of pelvic ring, sequela RAUDEL HENDERSONA [facility] Plan of Treatment: Future Appointments (+ 6 months) and Future Tests (+/- 45 days) The Plan of Treatment section includes future care activities for the patient from [facility] [place] [facility] [place] This section includes future appointments and future orders which are active, pending or scheduled. Future Appointments This section includes appointments that were scheduled to occur 6 months from the date of the Encounter, up to a maximum of 20 appointments. The data comes from all [place] treatment [facility]. Appointment Date/Time Appointment Type Appointme nt Facility Name Oct 28, 2022 01:30 PM AMBUL[place]ORY [place] [facility] Nov 02, 2022 09:30 AM AMBULATORY - [place]ONE [place] [facility] Dec 08, 2022 09:00 AM AMBUL[place]ORY - [place] [facility] Dec 10, 2022 10:30 AM AMBULATORY - NONE [place] [facility] Dec 10, 2022 11:00 AM AMBUL[place]ORY - [place] [facility] Dec 10, 2022 11:01 AM AMBULATORY - NONE [place] [facility] Dec 16, 2022 01:15 PM AMBULATORY - NONE [place] [facility] Dec 27, 2022 05:10 PM AMBULATORY - REHAB MEDICIN E [facility] Jan 03, 2023 11:15 AM [place]UL[place]ORY - [place]GERY [place] [facility] Jan 12, 2023 09:15 AM AMBUL[place]ORY - NONE [place] [facility] Feb 01, 2023 02:13 PM AMBULATORY - NONE [place] [facility] Feb 07, 2023 09:00 AM AM[place]UL[place]ORY - [place]ONE [place] [facility] Feb 07, 2023 09:30 AM [place] [facility] Feb 07, 2023 11:00 AM [place]ORY - [place]ONE [place] [facility] Feb 07, 2023 12:00 PM [place]IC[place] [facility] Feb 07, 2023 02:00 PM [place]IC[place] [facility] Feb 24, 2023 10:15 AM AMBUL[place]ORY [place] [facility] Mar 11, 2023 12:00 PM AM[place]ULATORY - NONE [place] [facility] Mar 28, 2023 10:00 AM AM[place]UL[place]ORY - NONE [place] [facility] Mar 30, 2023 08:30 [facility] Lab Results: +/- 30 days of the encounter This section includes the Chemistry and Hematology Lab Results on record with [place] for the patient. Radiology Reports and Pathology Reports are provided separately, in subsequent sections. Lab Results This section contains the Chemistry/Hematology Results that were resulted 30 days before or 30 daysafter the date of the Encounter. Date/Time Source Result Type Result - Unit Interpretation Reference Range Comment Nov 02, 2022 08:[address] [facility] TESTOSTERONE Specimen Type: SERUM No comment entered. Ordering Provider: GIORGIO HENDERSON Report Released Date/Time: October 04, 2022 04:06 PM Reporting Lab: [facility] [id number] Performing Lab: [facility] [id number] TESTOSTERONE [phone] Nov 02, 2022 08:[address] [facility] VIT D 25-OH,TOTAL Specimen Type: SERUM No comment entered. Ordering Provider: GIORGIO HENDERSON Report Released Date/Time: October 04, 2022 04:06 PM Reporting Lab: [facility] [id number] Performing Lab: [facility] [id number] VIT D 25-OH,TOTAL 28 12-50 Nov 02, 2022 08:[address] [facility] PROLACTIN Specimen Type: PLASMA No comment entered. Ordering Provider: GIORGIO HENDERSON Report Released Date/Time: October 04, 2022 04:06 PM Reporting Lab: [facility] [phone] Performing Lab: [facility] [address] PROLACTIN 7.47 See_Commen t Nov 02, 2022 08:[address] [facility] TSH W/REFLEX TO FREE T4 Specimen Type: PLASMA No comment entered. Ordering Provider: GIORGIO HENDERSON Report Released Date/Time: October 04, 2022 04:06 PM Reporting Lab: [facility] [id number] Performing Lab: [facility] [address] TSH 1.83 0.35-4.94 Nov 02, 2022 08:[address] [facility] LUTEINIZING HORMONE Specimen Type: SERUM No comment entered. Ordering Provider: GIORGIO HENDERSON Report Released Date/Time: October 04, 2022 04:06 PM Reporting Lab: [facility] [address] Performing Lab: [place] [phone] LUTEINIZING HORMONE 5.52 0.57-12.07 Nov 02, 2022 08:[address] [facility] FSH Specimen Type: PLASMA No comment entered. Ordering Provider: GIORGIO HENDERSON Report Released Date/Time: October 04, 2022 04:06 PM Reporting Lab: [facility] [address] Performing Lab: [place] [phone] FSH 11.25 0.95-11.95 Nov 02, 2022 08:[address] [facility] CBC Specimen Type: BLOOD No comment entered. Ordering Provider: GIORGIO HENDERSON Report Released Date/Time: October 04, 2022 04:06 PM Reporting Lab: [facility] [address] Performing Lab: [facility] [phone] WBC 6.02 4.0-11.0 RBC 5.21 4.6-6.2 HGB 16.6 13.5-17.9 HCT 51.7 41-54 MCV 99.2 80-100 MCH 31.9 27-33 MCHC 32.1 32.0-37.5 PLT 252 150-400 MPV 8.1 7.4-10.4 RDW 16.0 H 11.5-14.5 Nov 02, 2022 08:[address] [facility] COMPREHENSIVE METABOLIC PANEL+MG Specimen Type: PLASMA No comment entered. Ordering Provider: GIORGIO HENDERSON Report Released Date/Time: October 04, 2022 04:06 PM Reporting Lab: [facility] [address] Performing Lab: [facility] [phone] CREATININE 1.0 0.7-1.2 UREA NITROGEN 13 8-26 GLUCOSE 106 H 70-100 SODIUM 138 136-145 POTASSIUM 4.3 3.5-5.1 CHLORIDE 101 98-107 CO2 30 H 22-29 CALCIUM 9.2 8.4-10.2 PROTEIN,TOTAL 8.4 H 6.0-8.3 ALBUMIN 4.7 3.5-5.2 BILIRUBIN, TOTAL 0.6 0.2-1.2 MAGNESIUM 1.9 1.6-2.6 ANION GAP 7 5-15 ALKALINE PHOSPHATASE 263 H 40-150 ALT/SGPT 9 See_Commen t AST/SGOT 16 See_Commen t .CREAT EGFR(CKD-EPI) 83 See_Commen t Vital Signs: All taken on the encounter date This section contains inpatient and outpatient Vital Signs collected on the date of the Encounter. Date/Time Temperature Pulse Blood Pressure Respiratory Rate SP02 Pain Height Weight Body Mass Index Source October 04, 2022 03:11 PM 98.2 F 90 /min 120/88 mm[Hg] 16 /min 96 % 3 70.5 in 255 lb [facility] Social History: Smoking Status (Most current) and Tobacco Use (All prior to encounter date) This section includes the most current, and the historical, smoking and tobacco- related health factors from the [place] facility where the Encounter took place. Current Smoking Status This section includes the most current smoking, or tobacco-related health factor, from the [place] facility where the Encounter took place. Date/Time Current Smoking Status Comment Facil ity May 21, 2022 10:30 AM [place]-TOBACCO QUIT [address] [facility] Tobacco Use History This section includes a history of the smoking, or tobacco-related health factors, that were collected on or before the date of the Encounter. The data comes from the [place] facility where the Encounter took place. Date/Time Smoking Status/Tobacco Use Comment F acility May 21, 2022 10:30 AM [place]-TOBACCO QU[place] [address] [facility] Nov 12, 2020 12:00 PM VA-TOBACCO FORMER USER [facility] Nov 12, 2020 12:00 PM VA-TOBACCO QUIT 5 TO < [address] [facility] May 31, 2019 06:22 AM INPT NO TOBACCO USE IN LAST [address] [facility] Nov 08, 2017 01:55 PM VA-TOBACCO FORMER USER [facility] Nov 08, 2017 01:55 PM VA-TOBACCO QUIT 1 TO < [address] [facility] May 11, 2017 12:43 PM FORMER TOBACCO USE >1Y <7Y [facility] Aug 04, 2016 10:25 AM FORMER TOBACCO USE >1Y <7Y [facility] Aug 04, 2015 11:31 AM FORMER TOBACCO USE <1Y [facility] Aug 13, 2014 10:50 AM CURRENT TOBACCO USER [facility] October 10, 2013 09:12 AM FORMER TOBACCO USER 7Y OR GREATE R [facility] May 26, 2012 10:14 AM CURRENT TOBACCO USER [facility] Nov 19, 2009 12:07 [address]BACCO USER [facility] Advance Directives: All historical and current Section Date Range: From patient's date of to the date document was created. This section includes ALL of a patient's completed or amended [place] Advance and Rescinded Directives. The entries below indicate that a directive exists for the patient, but an actual copy is not included with this document. The data comes from all [facility]. Date Advance Directives Provider Source May 11, [address] [facility] Radiology Reports: +/- 30 days of the [...] the Encounter. The data comes from all [place] treatment facilities. Date/Time Radiology Report Provider Source October 04, 2022 04:16 PM LUMBAR SPINE MIN 4 VIEWS: CALVIN JAIN [id number] -[id number] M Exm Date: OCTOBER 04, 2022@16:16 Req Phys: HA HENDERSON Loc: [facility] 4D (Req'g Img Loc: MAIN X-RAY Service: Unknown (Case [id number] COMPLETE) LUMBAR SPINE MIN 4 VIEWS (RAD Detailed) CPT:34322 Proc Modifiers : Standing Reason for Study: vertebral fracutres Clinical History: IS NOT under investigation for COVID-19 or is COVID-19 negative Standing AP, Standing Lat, Standing L5/S1 Lat, Mar[place]. hx T7-8, T11-12, L2, L3 fractures, occuring on 08/07/22 Responsible provider name and phone number to notify for critical findings if other than user placing the order and pager listed below: User placing orders pager: [phone] LAST CREATININE 1.3 H (06/18/22) Report Status: Verified Date Reported: OCTOBER 04, 2022 Date Verified: OCTOBER 04, 2022 Special Loan Officer E-Sig:/UBALDO/DELILAH POE MD Report: DATE/TIME REGISTERED: 10/04/2022 4:16 PM STUDY: LUMBAR SPINE MIN 4 VIEWS HISTORY: vertebral fracutres Prior study 08/07/2018. FINDINGS: 4 views of the lumbosacral spine are received. The current study again reveals normal alignment of the lumbar vertebral bodies. There are endplate deformity superiorly at L2 and L3. The L2 deformity is new from the prior study. The L3 endplate depression is stable to slightly more prominent. Disc height is preserved. There is mild to moderate facet osteoarthritis in the mid and lower lumbar spine. This has progressed slightly. Impression: 1. Superior endplate compression deformity at the L2 level, new from 08/07/2018. 2. Stable to slight increased compression of the superior L3 endplate. 3. Slight increased facet osteoarthritis in the lower lumbar spine. Primary Interpreting Staff: DELILAH POE MD, RADIOLOGIST (Special Loan Officer) /DELILAH [facility] October 04, 2022 04:16 PM HIPS BILATERAL 2 V IEWS W/AP PELVIS: CALVIN JAIN [id number] -[id number] M Exm Date: OCTOBER 04, 2022@16:16 Req Phys: HA HENDERSON Loc: [facility] PA[facility] GRAPE PD [facility] 4D (Req'g Img Loc: MAIN X-RAY Service: Unknown (Case [id number] COMPLETE) HIPS BILATERAL 2 VIEWS W/AP PELVI(RAD Detailed) CPT:87458 Reason for Study: f/u pelvic fracture Clinical History: IS NOT under investigation for COVID-19 or is COVID-19 negative pelvic fracture f/u Responsible provider name and phone number to notify for critical findings if other than user placing the order and pager listed below: User placing orders pager: [phone] LAST CREATININE 1.3 H (06/18/22) Report Status: Verified Date Reported: OCTOBER 04, 2022 Date Verified: OCTOBER 04, 2022 Special Loan Officer E-Sig:/UBALDO/DELILAH POE MD Report: DATE/TIME REGISTERED: 10/04/2022 4:16 PM STUDY: HIPS BILATERAL 2 VIEWS W/AP PELVIS HISTORY: f/u pelvic fracture Prior study bone length 06/13/2020. FINDINGS: AP pelvis and 2 views of both hips are received. Fractures of the pubic rami are present. There is also increased density and irregularity along the arcuate line suggesting sacral fractures. There is periosteal new bone around all fractures. This area was obscured by the radiodense ruler on the prior study though may well be new since 2020. There is minimal joint space loss the left hip. Joint space in the right hip is normal. No hip fractures are identified. Minimal degenerative changes are seen in the lower lumbar spine. Impression: 1. Healing pubic rami and possibly sacral fractures. No acute fracture identified. 2. Minimal joint space loss in the left hip. Primary Interpreting Staff: DELILAH POE MD, RADIOLOGIST (Special Loan Officer) /DELILAH [facility] October 04, 2022 04:16 PM THORACIC SPINE 3 V IEWS: CALVIN JAIN [id number] -[id number] Ex Date: OCTOBER 04, 2022@16:16 Req Phys: HA HENDERSON Pat Loc: [facility] 4D (Req'g Img Loc: MAIN X-RAY Service: Unknown (Case [id number] COMPLETE) THORACIC SPINE 3 VIEWS (RAD Detailed) CPT:59036 Reason for Study: vertebral fractures Clinical History: hx T7-8, T11-12, L2, L3 fractures, occuring on 08/07/22 Responsible provider name and phone number to notify for critical findings if other than user placing the order and pager listed below: User placing orders pager: [phone] LAST CREATININE 1.3 H (06/18/22) Report Status: Verified Date Reported: OCTOBER 04, 2022 Date Verified: OCTOBER 04, 2022 Special Loan Officer E-Sig:/ES/DELILAH POE MD Report: DATE/TIME REGISTERED: 10/04/2022 4:16 PM STUDY: THORACIC SPINE 3 VIEWS HISTORY: vertebral fractures Prior CT chest 06/18/2022. FINDINGS: 3 views of the thoracic spine reveal endplate deformity superiorly at L2. This was not included in the field of view of the CT chest. There is mild anterior wedge compression fracture of the T8 vertebral body. This is new from the recent CT. The endplate deformity at T4 on the recent CT is not as well seen on plain film. The posterior ribs appear intact. Impression: 1. Mild T8 compression fracture, new from 06/18/2022. 2. Superior endplate deformity at L2. 3. T4 endplate deformity not well seen on the lateral view. Primary Interpreting Staff: DELILAH POE MD, RADIOLOGIST (Special Loan Officer) /DELILAH [facility] Encounter Notes: All associated encounter notes This section contains the clinical notes associated to the Encounter. Date/Time Encounter Note(s) Provider Source October 04, 2022 03:25 PM INTERNAL MEDICINE NOTE: LOCAL TITLE: MEDICINE CLINIC NOTE STANDARD TITLE: INTERNAL MEDICINE NOTE DATE OF NOTE: OCTOBER 04, 2022@15:25 ENTRY DATE: OCTOBER 04, 2022@15:25:16 AUTHOR: LIA HENDERSON EXP COSIGNER: URGENCY: STATUS: COMPLETED MEDICINE CLINIC NOTE Has ADDENDA Allergies: PENICILLIN (Nov 19, 2009) ZOLPIDEM (Dec 26, 2014) KENALONE INJECTION (40 MG/ML) (Oct 26, 2018) Assessment/Plan: # pelvic fracture/ multiple vertebral fractures: left anterior column posterior acetabular fracture, bilateral superior and inferior pubic rami fracture and T8/T11/L2/L3 endplate fractures. qualifies for empiric treatment for osteoporosis. no sx of radiculopathy. was following w/ [place]surgery at [facility] [place] pain is managed reasonably well. hasn't used opiods for one wk. - Neurosurgery referral for guidance on TLSO bracing and f/u - Metabolic referral - labs: test, LH, FSH, PRL, TSH, vit D - DEXA scan - tylenol PRN # HTN: BP low on lisinopril in the past. 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 - MgrF: young of ? - MGrM: at 89 History of Present Illness: pelvic/ vertebral fractures: fell down stairs at home while intoxicated and was admitted to [facility] on 08/07/22. no loss of conciousness. He was transferred to [facility]. He was noted to have a GCS of 15, labs noted an elevated white blood cell count, and EtOH of 0.065. He was found to have left anterior column posterior acetabular fracture, bilateral superior and inferior pubic rami fracture and T8/T11/L2/L3 endplate fractures. He was seen by neurosurgery who recommended TLSO for at least 3 months as upright x-rays showed stable alignment of his fractures. He was also seen by orthopedics who initially recommended an ORIF of his acetabular fracture during his admission. As he was monitored he was recommended for nonoperative management of his fractures and to continue to have Lovenox for 6 weeks from date of injury and to continue nonweightbearing of his left lower extremity. he has slowly progressed in rehab facility, where he was discharged to home on 09/25/22. no numbness or weakness in his legs. Today's Nurse check-in note reviewed. 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) Osteoarthritis (ICD-9-CM 715.90) PAIN, NECK/CERVICALGIA (ICD-9-CM 723.1) Posttraumatic stress disorder (SCT 56429Esoh pain (SCT 16237270) OEF/OIF EXPOSURE TO BURN PIT SMOKE (ICD-OEF/OIF EXPOSURE TO SANDSTORMS/DUSTSTORMS (ICD-10-CM R69.) Dyspnea on exertion (SCT 38370113) Dyspnea on exertion (SCT 18439019) Pain radiating to right side of chest (SHypertension ([facility] [id number]) Inflammatory polyarthritis ([facility] [id number] risk drug monitoring status ([facility] [id number]) Physical Exam: Vitals: BP: 120/88 (10/04/2022 15:11) P: 90 (10/04/2022 15:11) R: 16 (10/04/2022 15:11) T: 98.2 F [36.8 C] (10/04/2022 15:11) WT: 255 lb [115.67 kg] (10/04/2022 15:11) Pain: 3 (10/04/2022 15:11) O2 Sat: 96% (10/04/2022 15:11) Cardiac: RRR, S1 S2, No murmurs, gallops, rubs Chest/Lungs: Bilaterally clear Extremities: No edema Review of Systems: Feels well No weight loss No fevers or chills No Chest Pain No Shortness of breath No orthopnea or PND No peripherial edema No nausea or vomiting No urinary hesitancy or frequency Tobacco/ETOH Use: Yes; Cigarettes quit 08/05 /samantha HENDERSON MD Staff Physician Signed: 10/08/2022 10:05 10/08/2022 ADDENDUM STATUS: COMPLETED pls arrange for OT home referral. thanks /samantha HENDERSON MD Staff Physician Signed: 10/08/2022 10:06 Receipt Acknowledged By: 10/08/2022 11:15 /samantha ALANIZ RN 10/08/2022 ADDENDUM STATUS: COMPLETED Orders entered and faxed to [facility] at [phone] /samantha ALANIZ RN Signed: 10/08/2022 11:[address] [facility] October 04, 2022 03:12 PM INTERNAL MEDICINE OUTPATIENT NOTE: LOCAL TITLE: MEDICINE CLINIC NURSING NOTE STANDARD TITLE: INTERNAL MEDICINE OUTPATIENT NOTE DATE OF NOTE: OCTOBER 04, 2022@15:12 ENTRY DATE: OCTOBER 04, 2022@15:13:04 AUTHOR: MARK HEAD COSIGNER: MAXIMO PUENTES URGENCY: STATUS: COMPLETED TYPE OF VISIT: Appointment Check In Type of appointment: In-person appointment REASON FOR VISIT: post discharge from custodial / TCU ALLERGIES: PENICILLIN (Nov 19, 2009) ZOLPIDEM (Dec 26, 2014) KENALONE INJECTION (40 MG/ML) (Oct 26, 2018) VITAL SIGNS: Blood Pressure: 120/88 (10/04/2022 15:11) Pulse: 90 (10/04/2022 15:11) Respiration: 16 (10/04/2022 15:11) Temperature: 98.2 F [36.8 C] (10/04/2022 15:11) Weight: 255 lb [115.67 kg] (10/04/2022 15:11) Height: 70.5 in [179.1 cm] (10/04/2022 15:11) BMI: 36.1 O2 Sat: 96% (10/04/2022 15:11) Pain: 3 (10/04/2022 15:11) PAIN SCREEN: Patient is having significant pain that they would like to talk to their provider about today. Acute pain is new pain, which as been present for less than 6 months Words used to describe pain: dull, achy Number that best describes pain intensity on average in the past week: 4 Pain located in the following location(s): back, other: pelvis Pain has been happening for: 1-3 months Pain is worse when: other: positioning Pain is better when: other: resting on right side MEDICATION Active Outpatient Medications (including Supplies): Non-[place] RETIREMENT MEDICATIONS MISCELLANEOUS ACTIVE Over the Counter/Herbal Medications: The patient states that they take some outside medications and/or herbals. /ubaldo/ MARK HEAD SNT Signed: 10/04/2022 15:18 /ubaldo/ MAXIMO PUENTES REGISTERED NURSE Cosigned: 10/04/2022 15:[address] [facility]
--- OUTSIDE RECORDS SUMMARY | 2023-09-23 17:08 | XMS_ITS | Encounter Summary ---
Author Name [employer] [facility] [employer] Organization [facility] Address [address] [place] [address] Support Name Relationship Address Phone MARIBELL, VITO Next of Kin [address] [place] [address] MARIBELL, VITO Emergency Contact [address] [place] [address] Insurance Providers: All historical and [...] Hurt's Name Patient's Relationship to Policy Hurt [facility] (WNR) MEDICARE ADVANTAGE [facility] (WNR) May 16, 2023 [id number] JEAN JAIN IN PATIENT Selected Encounter This section includes the information on record at [place] for the [place]counter. Date/Time Encounter Type Encounter Description Reason Provider Source September 22, 2023 04:19 PM 1ST H[facility] IP/OBS SF[facility]LOW [facility] - IND ICD-10-CM F10.10 Alcohol abuse, uncomplicated PENG,LYLA EL H IHE Encounter Template Text not used by [place] Assessments - Encounter Diagnoses This section includes the primary and secondary diagnoses documented for the Encounter. Date/Time Primary/Secondary Diagnosis Diagnosis Name Provider Source September 22, 2023 04:21 PM PRIMARY Alcohol abuse, uncomplicated PENG,LYLA EL H [facility] Plan of Treatment: Future Appointments (+ 6 months) and Future Tests (+/- 45 days) The Plan of Treatment section includes future care activities for the patient from all [place] treatmentfacilities. This section includes future appointments and future orders which are active, pending or scheduled. Future Appointments This section includes appointments that were scheduled to occur 6 months from the date of the Encounter, up to a maximum of 20 appointments. The data comes from all [facility]. Appointment Date/Time Appointment Type Appointme nt Facility Name September 27, 2023 10:30 AM AMBULATORY - PSYCHIATRY [facility] Nov 10, 2023 07:15 AM AMBULATORY - MEDICINE [facility] Nov 10, 2023 07:30 AM AMBULATORY MEDICINE [facility] Jan 02, 2024 09:30 AM AMBULATORY MEDICINE [facility] Jan 02, 2024 10:30 AM AMBULATORY MEDICINE [facility] Active, Pending, and Scheduled Orders This section includes a listing of several types of active, pending, and scheduled orders, including clinic medications orders, diagnostic test orders, procedure orders and consult orders; where the start date of the order is 45 days before the date of the Encounter or 45 days after the date of theEncounter. The data comes from all [facility]. Test Date/Time Test Type Test Details Facility Name Sep 08, 2023 12:00 AM Laboratory - Chemistry Order COMPREHENSIVE METABOLIC PANEL+MG PLASMA SP ONCE [facility] Sep 08, 2023 12:00 AM Laboratory - Chemistry Order CBC BLOOD SP ONCE [facility] September 22, 2023 01:58 PM Consult Order [facility] Cons Cable Installer's Choice [facility] September 23, 2023 12:52 PM Laboratory - Microbiology Order CULTURE & SUSCEPTIBILITY SPUTUM WC ONCE [facility] September 23, 2023 12:52 PM Laboratory - Microbiology Order GRAM STAIN SPUTUM WC ONCE [facility] September 23, 2023 01:00 PM Laboratory - Microbiology Order CULTURE & SUSCEPTIBILITY BLOOD WC [facility] September 23, 2023 01:20 PM Laboratory - Microbiology Order CULTURE & SUSCEPTIBILITY BLOOD WC [facility] September 24, 2023 05:30 AM Laboratory - Chemistry Order CBC & DIFF BLOOD LC ONCE [facility] September 24, 2023 05:30 AM Laboratory - Chemistry Order COMPREHENSIVE METABOLIC PANEL+MG PLASMA LC [facility] September 24, 2023 05:30 AM Laboratory - Chemistry Order LACTIC ACID PLASMA UNITS WC ONCE [facility] September 24, 2023 05:30 AM Laboratory - Chemistry Order D-DIMER PLASMA LC ONCE [facility] Lab Results: +/- 30 days of the encounter This section includes the Chemistry and Hematology Lab Results on record with [place] for the patient. Radiology Reports and Pathology Reports are provided separately, in subsequent sections. Lab Results This section contains the Chemistry/Hematology Results that were resulted 30 days before or 30 daysafter the date of the Encounter. Date/Time Source Result Type Result - Unit Interpretation Reference Range Comment September 23, 2023 02:30 PM [facility] EXTRA MINT TUBE Specimen Type: PLASMA No comment entered. Ordering Provider: REVA ROSS Report Released Date/Time: September 23, 2023 02:49 PM Reporting Lab: [facility] [id number] Performing Lab: [facility] [id number] EXTRA MINT TUBE RECEIVED September 23, 2023 04:15 AM [facility] PROCALCITONIN Specimen Type: PLASMA No comment entered. Ordering Provider: WANDA BOWSER Report Released Date/Time: September 23, 2023 04:10 AM Reporting Lab: [facility] [phone] Performing Lab: [facility] [phone] PROCALCITONIN 0.11 H <0.09 September 23, 2023 04:15 AM [facility] C-REACTIVE PROTEIN Specimen Type: PLASMA No comment entered. Ordering Provider: WANDA BOWSER Report Released Date/Time: September 23, 2023 04:10 AM Reporting Lab: [facility] [id number] Performing Lab: [facility] [phone] C-REACTIVE PROTEIN 81.34 H <5.00 September 23, 2023 04:15 AM [facility] LIPASE Specimen Type: PLASMA No comment entered. Ordering Provider: REVA ROSS Report Released Date/Time: September 23, 2023 12:52 PM Reporting Lab: [facility] [id number] Performing Lab: [facility] [id number] LIPASE 12 <60 September 23, 2023 04:15 AM [facility] CBC Specimen Type: BLOOD No comment entered. Ordering Provider: WANDA BOWSER Report Released Date/Time: September 23, 2023 04:10 AM Reporting Lab: [facility] [id number] Performing Lab: [facility] [phone] WBC 12.24 H 4.0-11.0 RBC 3.93 L 4.6-6.2 HGB 13.9 13.5-17.9 HCT 39.8 L 41-54 MCV 101.3 H 80-100 MCH 35.4 H 27-33 MCHC 34.9 32.0-37.5 PLT 236 150-400 MPV 9.3 7.4-10.4 RDW 12.0 11.5-14.5 September 23, 2023 04:15 AM [facility] COMPREHENSIVE METABOLIC PANEL+MG Specimen Type: PLASMA No comment entered. Ordering Provider: WANDA BOWSER Report Released Date/Time: September 23, 2023 04:10 AM Reporting Lab: [facility] [id number] Performing Lab: [facility] [address] CREATININE 1.1 0.7-1.2 UREA NITROGEN 16 8-26 GLUCOSE 152 H 70-100 SODIUM 133 L 136-145 POTASSIUM 3.8 3.5-5.1 CHLORIDE 95 L 98-107 CO2 20 L 22-29 CALCIUM 9.7 8.4-10.2 PROTEIN,TOTAL 6.8 6.0-8.3 ALBUMIN 3.9 3.5-5.2 BILIRUBIN, TOTAL 0.7 0.2-1.2 MAGNESIUM 1.8 1.6-2.6 ANION GAP 18 H 5-15 ALKALINE PHOSPHATASE 123 40-150 ALT/SGPT 42 <55 AST/SGOT 32 <34 .CREAT EGFR(CKD-EPI) 74 >60 September 22, 2023 01:33 PM [facility] DRUG SCREEN PANEL,URINE Specimen Type: URINE Comment: Presumptive Positive by screen, results not confirmed. Ordering Provider: RADHA DODD Report Released Date/Time: September 22, 2023 10:59 AM Reporting Lab: [facility] [phone] Performing Lab: [facility] [phone] BARBITURATES Negative Negative AMPHETAMINES Negative Negative COCAINE Negative Negative BENZODIAZEPINES Negative Negative CANNABINOIDS Negative Negative METHADONE Negative Negative OPIATES POSITIVE H Negative PHENCYCLIDINE Negative Negative ETHANOL,URINE Negative Negative DRUG SCREEN CREAT 290.4 >20.0 OXYCODONE Negative Negative BUPRENORPHINE Negative Negative TRAMADOL Negative Negative FENTANYL Negative Negative September 22, 2023 01:33 PM [facility] URINALYSIS Specimen Type: URINE No comment entered. Ordering Provider: RADHA DODD Report Released Date/Time: September 22, 2023 10:59 AM Reporting Lab: [facility] [phone] Performing Lab: [facility] [phone] URINE COLOR YELLOW SPECIFIC GRAVITY 1.032 1.003-1.03 5 URINE BILIRUBIN 1+ NEGATIVE URINE KETONES 4+ NEGATIVE URINE GLUCOSE NEGATIVE See_Co mmen t URINE PROTEIN 50 See_Co mmen t URINE PH 5.5 5.0-8.0 URINE WBC/HPF 1 0-7 URINE BACTERIA NONE SEEN HYALINE CASTS 1 URINE RBC/HPF 1 0-3 APPEARANCE CLEAR SQUAMOUS EPITHELIAL NONE SEEN URINE BLOOD NEGATIVE NEGATIVE URINE NITRITE NEGATIVE NEGATIVE LEUKOCYTE ESTERASE NEGATIVE NEGATIVE September 22, 2023 01:33 PM [facility] COVID-19 AND FLU/RSV DIAG PANEL(CEPHEID) Specimen Typ e: NASOPHARYNGEAL Comment: [employer] GeneXpert (618) Ordering Provider: RADHA DODD Report Released Date/Time: September 22, 2023 01:26 PM Reporting Lab: [facility] [id number] Performing Lab: [facility] [phone] COVID-19 (CEPHEID) Not Detected Not Detected INFLUENZA A (PCR) Not Detected Not Detected INFLUENZA B (PCR) Not Detected Not Detected RSV (PCR) Not Detected Not Detected September 22, 2023 10:55 AM [facility] EXTRA BLUE TUBE Specimen Type: PLASMA No comment entered. Ordering Provider: RADHA DODD Report Released Date/Time: September 22, 2023 11:04 AM Reporting Lab: [facility] [phone] Performing Lab: [facility] [id number] EXTRA BLUE TUBE RECEIVED September 22, 2023 10:55 AM [facility] LIPASE Specimen Type: PLASMA No comment entered. Ordering Provider: RADHA DODD Report Released Date/Time: September 22, 2023 10:59 AM Reporting Lab: [facility] [phone] Performing Lab: [facility] [address] LIPASE 27 <60 September 22, 2023 10:55 AM [facility] ETHANOL Specimen Type: PLASMA No comment entered. Ordering Provider: RADHA DODD Report Released Date/Time: September 22, 2023 10:59 AM Reporting Lab: [facility] [phone] Performing Lab: [facility] [address] ETHANOL Negative NEGATIVE September 22, 2023 10:55 AM [facility] EXTRA GOLD GEL TUBE Specimen Type: SERUM No comment entered. Ordering Provider: RADHA DODD Report Released Date/Time: September 22, 2023 11:04 AM Reporting Lab: [facility] [phone] Performing Lab: [facility] [phone] EXTRA GOLD GEL TUBE RECEIVED September 22, 2023 10:55 AM [facility] COMPREHENSIVE METABOLIC PANEL+MG Specimen Type: PLASMA No comment entered. Ordering Provider: RADHA DODD Report Released Date/Time: September 22, 2023 10:59 AM Reporting Lab: [facility] [phone] Performing Lab: [facility] [address] CREATININE 1.0 0.7-1.2 UREA NITROGEN 16 8-26 GLUCOSE 120 H 70-100 SODIUM 136 136-145 POTASSIUM 3.9 3.5-5.1 CHLORIDE 93 L 98-107 CO2 23 22-29 CALCIUM 10.3 H 8.4-10.2 PROTEIN,TOTAL 7.5 6.0-8.3 ALBUMIN 4.2 3.5-5.2 BILIRUBIN, TOTAL 1.0 0.2-1.2 MAGNESIUM 1.5 L 1.6-2.6 ANION GAP 20 H 5-15 ALKALINE PHOSPHATASE 152 H 40-150 ALT/SGPT 54 <55 AST/SGOT 51 H <34 .CREAT EGFR(CKD-EPI) 82 >60 September 22, 2023 10:55 AM [facility] CBC & DIFF Specimen Type: BLOOD Comment: Automated Differential Performed Ordering Provider: RADHA DODD Report Released Date/Time: September 22, 2023 10:59 AM Reporting Lab: [facility] [phone] Performing Lab: [facility] [phone] WBC 16.53 H 4.0-11.0 RBC 4.55 L 4.6-6.2 HGB 16.0 13.5-17.9 HCT 45.5 41-54 MCV 100.0 80-100 MCH 35.2 H 27-33 MCHC 35.2 32.0-37.5 PLT 333 150-400 MPV 8.8 7.4-10.4 NEUT 83.4 H 40.0-80.0 LYMPHS 7.4 L 15.0-45.0 MONO 7.3 2.0-12.0 EOSINO 0.1 0.0-6.0 BASO 0.5 0.0-2.0 RDW 12.1 11.5-14.5 ABS LYMPH 1.23 1.0-4.0 ABS MONO 1.21 H 0.1-1.0 ABS NEUT 13.78 H 2.0-7.7 ABS EOS 0.01 0-0.5 ABS BASO 0.09 0-0.2 IG(META,MYELO,P RO) 1.3 ABS IMMATURE GRAN 0.21 H 0-0.1 Vital Signs: All taken on the encounter date This section contains inpatient and outpatient Vital Signs collected on the date of the Encounter. Date/Time Temperature Pulse Blood Pressure Respiratory Rate SP02 Pain Height Weight Body Mass Index Source September 22, 2023 03:44 PM 97.5 110 105/[address] [facility] September 22, 2023 03:[address] [facility] September 22, 2023 11:11 AM 98.5 105 136/[address] [facility] Social History: Smoking Status (Most current) and Tobacco Use (All prior to encounter date) This section includes the most current, and the historical, smoking and tobacco- related health factors from the [place] facility where the Encounter took place. Current Smoking Status This section includes the most current smoking, or tobacco-related health factor, from the [place] facility where the Encounter took place. Date/Time Current Smoking Status Comment Nigel ity Jun 02, 2023 11:00 AM VA-TOBACCO FORMER USER [facility] Tobacco Use History This section includes a history of the smoking, or tobacco-related health factors, that were collected on or before the date of the Encounter. The data comes from the [place] facility where the Encounter took place. Date/Time Smoking Status/Tobacco Use Comment F acility Jun 02, 2023 11:00 AM [place]-TOBACCO QUIT 5 TO < 15 YRS [facility] May 21, 2022 10:30 AM VA-TOBACCO FORMER USER [facility] May 21, 2022 10:30 AM VA-TOBACCO QUIT 15 YRS OR MORE [facility] Nov 12, 2020 12:00 PM VA-TOBACCO FORMER USER [facility] Nov 12, 2020 12:00 PM VA-TOBACCO QUIT 5 TO < 15 YRS [facility] May 31, 2019 06:22 AM INPT NO TOBACCO USE IN LAST 30 D AYS [facility] Nov 08, 2017 01:55 PM VA-TOBACCO FORMER USER [facility] Nov 08, 2017 01:55 PM VA-TOBACCO QUIT 1 TO < 5 YRS [facility] May 11, 2017 12:43 PM FORMER TOBACCO USE >1Y <7Y [facility] Aug 04, 2016 10:25 AM FORMER TOBACCO USE >1Y <7Y [facility] Aug 04, 2015 11:31 AM FORMER TOBACCO USE <1Y [facility] Aug 13, 2014 10:50 AM CURRENT TOBACCO USER [facility] October 10, 2013 09:12 AM FORMER TOBACCO USER 7Y OR GREATE R [facility] May 26, 2012 10:14 AM CURRENT TOBACCO USER [facility] Nov 19, 2009 12:07 PM CURRENT TOBACCO USER [facility] Advance Directives: All historical and current Section Date Range: From patient's date of to the date document was created. This section includes ALL of a patient's completed or amended [place] Advance and Rescinded Directives. The entries below indicate that a directive exists for the patient, but an actual copy is not included with this document. The data comes from all [facility]. Date Advance Directives Provider Source May 11, 2006 ADVANCE DIRECTIVE ASH RAZO [facility] Radiology Reports: +/- 30 days [...] the Encounter. The data comes from all [place] treatment facilities. Date/Time Radiology Report Provider Source September 23, 2023 01:38 PM CHEST 1 VIEW: CALVIN JAIN [id number] M Exm Date: SEPTEMBER 23, 2023@13:38 Req Phys: REVA ROSS Loc: 3LS/09-23-2023@14:51 Img Loc: MAIN X-RAY Service: PR[place] [address] (Case [id number] COMPLETE) CHEST 1 VIEW (RAD Detailed) CPT:22653 Proc Modifiers : PORTABLE EXAM Reason for Study: see below Clinical History: IS NOT under investigation for COVID-19 or is COVID-19 negative SIRS criteria, no overt sx, please r/o any opacities Responsible provider name and phone number to notify for critical findings if other than user placing the order and pager listed below: User placing orders pager: [phone] LAST CREATININE 1.1 (09/23/23) Report Status: Verified Date Reported: SEPTEMBER 23, 2023 Date Verified: SEPTEMBER 23, 2023 Grove Superintendent E-Sig:/ES/JANETH OROZCO DO Report: EXAMINATION: CHEST 1 VIEW Reason for Study: see below [place] IS NOT under investigation for COVID-19 or is COVID-19 negative SIRS criteria, no overt sx, please r/o any opacities Responsible provider name and phone number to notify for critical findings if other than user placing the order and pager listed below: User placing orders pager: [phone] LAST CREATININE 1.1 (09/23/23) see below TECHNIQUE: Single portable upright AP chest radiograph. COMPARISON: 05/11/[address] thorax 05/02/2023 FINDINGS: Diminished inspiratory volume. New strand-like opacities in both lung bases partially obscure the diaphragm. No visible pleural line, deep sulcus, or hyperlucent hemithorax. Cardiomediastinal silhouette is unenlarged. Pulmonary vasculature is distinct and there is no peribronchial cuffing. Metallic densities in the soft tissues about the right shoulder, likely shrapnel. Impression: Hypoventilatory appearance with bibasilar atelectasis and limited visualization of the lung bases. Primary Interpreting Staff: JANETH OROZCO DO, RADIOLOGIST (Grove Superintendent) /JANETH RASHEED [facility] Encounter Notes: All associated encounter notes This section contains the clinical notes associated to the Encounter. Date/Time Encounter Note(s) Provider Source September 22, 2023 04:19 PM PSYCHIATRY E & M N OTE: LOCAL TITLE: PSYCHIATRIC EVALUATION & MANAGEMENT STANDARD TITLE: PSYCHIATRY E & M NOTE DATE OF NOTE: SEPTEMBER 22, 2023@16:19 ENTRY DATE: SEPTEMBER 22, 2023@16:19:48 AUTHOR: SCARLETT KHOURY EXP COSIGNER: URGENCY: STATUS: COMPLETED Brief Psychiatrist Admission Note 68 year old, single, domiciled, retired, N[employer] male with a history of depression, PTSD, alcohol abuse, chronic pain, and sleep apnea who presented to the ED for supervision and support detoxing from alcohol use. Negative CSSRS in ED triage. BAL at 10:55am today is negative. Patient will be admitted on a voluntary basis to to reduce likelihood of relapse prior to RRTP start date. See forthcoming H&P for additional information. /es/ SCARLETT KHOURY MD Signed: 09/22/2023 16:22 SCARLETT KHOURY [facility]
--- OUTSIDE RECORDS SUMMARY | 2023-09-23 17:08 | XMS_ITS | Encounter Summary ---
Author Name [employer] of Vetera Affairs Organization [facility] of [facility] Address [address], [place] [address] Support Name Relationship Address Phone MARIBELL, VITO Next of Kin [address] [place] [address] MARIBELLVITO GUILLERMO Emergency Contact [address] [place] [address] Insurance Providers: All historical and [...] Hurt's Name Patient's Relationship to Policy Hurt [facility] (WNR) MEDICARE ADVANTAGE [facility] (WNR) May 16, 2023 [id number] JEAN JAIN IN PATIENT Selected Encounter This section includes the information on record at CO for the Encounter. Date/Time Encounter Type Encounter Description Reason Provider Source Dec 08, 2022 09:00 AM OFF/OP CONSLTJ NEW/EST HI 55 NEUROSURGERY ICD-10-CM S22.060A Wedge compression fracture of T7-T8 vertebra, ANANTH Reyes Encounter Template Text not used by [facility] Assessments - Encounter Diagnoses This section includes the primary and secondary diagnoses documented for the Encounter. Date/Time Primary/Secondary Diagnosis Diagnosis Name Provider Source Dec 08, 2022 02:48 PM PRIMARY Wedge compression fracture of T7-T8 vertebra, inLINSEY Hernandez [facility] Dec 08, 2022 02:48 PM SECONDARY Wedge comprsn fracture of unsp lum vertebra, init for opn fx RAEGANLINSEY L [facility] Plan of Treatment: Future Appointments (+ 6 months) and Future Tests (+/- 45 days) The Plan of Treatment section includes future care activities for the [facility] This section includes future appointments and future orders which are active, pending or scheduled. Future Appointments This section includes appointments that were scheduled to occur 6 months from the date of the Encounter, up to a maximum of 20 appointments. The data comes from all [facility] facilities. Appointment Date/Time Appointment Type Appointme nt Facility Name Dec 10, 2022 10:30 AM AM[place]ORY - NONE [place] [facility] Dec 10, 2022 11:00 AM AM[place]UL[place]ORY [place] [facility] Dec 10, 2022 11:01 AM AMBULATORY - NONE [place] [facility] Dec 16, 2022 01:15 PM AMBULATORY - NONE [place] [facility] [facility] Dec 27, 2022 05:10 PM AMBULATORY - REHAB MEDICIN E [facility] Jan 03, 2023 11:15 AM AMBULATORY - SURG[place] [facility] Jan 12, 2023 09:15 AM AMBULATORY - NONE [place] [facility] Feb 01, 2023 02:13 PM AMBULATORY - NONE [place] [facility] Feb 07, 2023 09:00 AM AMBULATORY - NONE [place] [facility] Feb 07, 2023 09:30 AM AMBUL[place]ORY - SURGERY [place] [facility] Feb 07, 2023 11:00 AM AM[facility]ULATORY - NONE [place] [facility] [facility] Feb 07, 2023 12:00 PM [place]IC[place] [facility] Feb 07, 2023 02:00 PM [place]IC[place] [facility] Feb 24, 2023 10:15 AM AMBULATORY - [place]IATRY [place] [facility] Mar 11, 2023 12:00 PM AMBULATORY - NONE [place] [facility] Mar 28, 2023 10:00 AM AM[place]ULATORY - NONE [place] [facility] [facility] Mar 30, 2023 08:30 AM AM[place]ULATORY - NONE [place] [facility] [facility] Mar 30, 2023 09:00 AM AM[place]ULATORY - NONE [place] [facility] May 02, 2023 08:30 AM AM[place]ULATORY - NONE [place] [facility] May 19, 2023 10:15 AM AMBULATORY [place]IATRY [place] [facility] Social History: Smoking Status (Most current) and Tobacco Use (All prior to encounter date) This section includes the most current, and the historical, smoking and tobacco- related health factors from the CO facility where the Encounter took place. Current Smoking Status This section includes the most current smoking, or tobacco-related health factor, from the CO facility where the Encounter took place. Date/Time Current Smoking Status Comment Facil ity May 21, 2022 10:30 AM VA-TOBACCO QUIT 15 YRS OR MORE [facility] Tobacco Use History This section includes a history of the smoking, or tobacco-related health factors, that were collected on or before the date of the Encounter. The data comes from the CO facility where the Encounter took place. Date/Time Smoking Status/Tobacco Use Comment F acility May 21, 2022 10:30 AM VA-TOBACCO QUIT 15 YRS OR MORE [facility] Nov 12, 2020 12:00 PM VA-TOBACCO FORMER USER [facility] Nov 12, 2020 12:00 PM VA-TOBACCO QUIT 5 TO < 15 YRS [facility] May 31, 2019 06:22 AM INPT NO TOBACCO USE IN LAST 30 D AYS [facility] Nov 08, 2017 01:55 PM VA-TOBACCO FORMER USER [facility] Nov 08, 2017 01:55 PM VA-TOBACCO QUIT 1 TO < 5 YRS [facility] May 11, 2017 12:43 PM FORMER TOBACCO USE >1Y <7Y [facility] Aug 04, 2016 10:25 AM FORMER TOBACCO USE >1Y <7Y [facility] Aug 04, 2015 11:31 AM FORMER TOBACCO USE <1Y [facility] Aug 13, 2014 10:50 AM CURRENT TOBACCO USER [facility] October 10, 2013 09:12 AM FORMER TOBACCO USER 7Y OR GREATE R [facility] May 26, 2012 10:14 AM CURRENT TOBACCO USER [facility] Nov 19, 2009 12:07 PM CURRENT TOBACCO USER [facility] Advance Directives: All historical and current Section Date Range: From patient's date of to the date document was created. This section includes ALL of a patient's completed or amended CO Advance and Rescinded Directives. The entries below indicate that a directive exists for the patient, but an actual copy is not included with this document. The data comes from all [facility]. Date Advance Directives Provider Source May 11, 2006 ADVANCE DIRECTIVE ASH RAZO [facility] Radiology Reports: +/- 30 days of the [...] the Encounter. The data comes from all [place] treatment facilities. Date/Time Radiology Report Provider Source Dec 16, 2022 12:49 PM DXA BONE DENSITY: VANCE JAIN [id number] -1955 M Exm Date: DEC 16, 2022@12:49 Req Phys: HA HENDERSON Pat Loc: [facility] PACT GRAPE PD WH 4D (Req'g Img Loc: NUC MED Service: Unknown (Case [id number] COMPLETE) DXA BONE DENSITY AXIAL (NM Detailed) CPT:50205 Reason for Study: thoracic vertebral fracture (Case [id number] COMPLETE) TECHNICAL CALC OF TBS (TRABECULAR(NM Detailed) CPT:45037 Clinical History: [place] IS NOT under investigation for COVID-19 or is COVID-19 negative 66 yo M w/ hx of HTN, obesity, who has pelvic fracture/ multiple vertebral fractures: left anterior column posterior acetabular fracture, bilateral superior and inferior pubic rami fracture and T8/T11/L2/L3 endplate fractures. qualifies for empiric treatment for osteoporosis. no sx of radiculopathy. was following w/ Neurosurgery at [facility] ([facility]). pain is managed reasonably well. hasn't [...] pager listed below: User placing orders pager: [phone] LAST CREATININE 1.3 H (06/18/22) Report Status: Verified Date Reported: DEC 17, 2022 Date Verified: DEC 17, 2022 Learning [employer] Specialist E-Sig:/ES/ITA CLAUDIO MD, FACR, CCD Report: DXA BONE DENSITY SCAN INDICATION: History of multiple fractures.. CLINICAL INFORMATION: The patient reportedly is currently on treatment with alendronate.. 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 TECHNIQUE/LIMITATIONS: The technical quality of the [...] NO ALERT REQUIRED Primary Interpreting Staff: ITA CLAUDIO MD, FACR, STAFF RADIOLOGIST ([employer] Specialist) /BSF ITA CLAUDIO [facility] Dec 10, 2022 10:49 AM PELVIS JUDET VIEWS (P): VANCE JAIN [id number] -1955 M Exm Date: DEC 10, 2022@10:49 Req Phys: DAVID CHAVEZ Pat Loc: [facility] (Re'g Loc Im Loc: MAIN X-RAY Service: Unknown (Case [id number] COMPLETE) PELVIS 3 VIEWS OR MORE (RAD Detailed) CPT:47505 Reason for Study: acetabulum fx Clinical History: IS NOT under investigation for COVID-19 or is COVID-19 negative acetabulum fx Responsible provider name and phone number to notify for critical findings if other than user placing the order and pager listed below: User placing orders pager: [phone] LAST CREATININE 1.0 (11/02/22) Report Status: Verified Date Reported: DEC 10, 2022 Date Verified: DEC 10, 2022 [employer] Specialist E-Sig:/ES/JENNY WHITMAN MD Report: PELVIS 3 VIEWS [...] Interpreting Staff: JENNY WHITMAN MD, STAFF RADIOLOGIST ([employer] Specialist) /[facility] Dec 10, 2022 10:45 AM PELVIS INLET-OUTLE T VIEWS (P): VANCE JAIN [id number] -1955 M Exm Date: DEC 10, 2022@10:45 Req Phys: DAVID CHAVEZ Pat Loc: [facility] (Req'g Loc Img Loc: MAIN X-RAY Service: Unknown (Case [id number] COMPLETE) PELVIS 3 VIEWS OR MORE (RAD Detailed) CPT:96908 Reason for Study: pelvic fxs Clinical History: IS NOT under investigation for COVID-19 or is COVID-19 negative pelvic fxs Responsible provider name and phone number to notify for critical findings if other than user placing the order and pager listed below: User placing orders pager: [phone] LAST CREATININE 1.0 (11/02/22) Report Status: Verified Date Reported: DEC 10, 2022 Date Verified: DEC 10, 2022 [employer] Specialist E-Sig:/ES/JENNY WHITMAN MD Report: PELVIS 3 VIEWS [...] Interpreting Staff: JENNY WHITMAN MD, STAFF RADIOLOGIST ([employer] Specialist) /[facility] Dec 10, 2022 09:02 AM THORACIC SPINE 3 V IEWS: VANCE JAIN [id number] -1955 M Exm Date: DEC 10, 2022@09:02 Req Phys: LINSEY REYNA Loc: [facility] NEUROSURGERY CORRECTIONAL COUNSELOR CONSULT-B Img Loc: MAIN X-RAY Service: Unknown (Case [id number] COMPLETE) THORACIC SPINE 3 VIEWS (RAD Detailed) CPT:72732 Reason for Study: Eval alignmnet from back fractures Clinical History: Pt has an appt for TUESDAY xrays of pelvis on 12/10 . Can these combined? [place] IS NOT under investigation for COVID-19 or is COVID-19 negative Eval Thoracic fx and alignment .Hx t7,8,11,12 fractures Responsible provider name and phone number to notify for critical findings if other than user placing the order and pager listed below: User placing orders pager: LAST CREATININE 1.0 (11/02/22) Report Status: Verified Date Reported: DEC 10, 2022 Date Verified: DEC 10, 2022 Learning [employer] Specialist E-Sig:/ES/TERESITA CALZADA DO Report: EXAMINATION: THORACIC SPINE [...] Primary Interpreting Staff: TERESITA CALZADA DO, RADIOLOGIST (Learning [employer] Specialist) /DDS TERESITA CALZADA [facility] Dec 10, 2022 09:02 AM LUMBAR SPINE MIN 4 VIEWS: VANCE JAIN [id number] -1955 M Exm Date: DEC 10, 2022@09:02 Req Phys: LINSEY REYNA Loc: [facility] NEUROSURGERY CORRECTIONAL COUNSELOR CONSULT-B Img Loc: MAIN X-RAY Service: Unknown (Case [id number] COMPLETE) LUMBAR SPINE MIN 4 VIEWS (RAD Detailed) CPT:26676 Reason for Study: F/u L2 and L3 fractures Clinical History: Pt has appt already on Sunday 12/10 for pelvic films. Can these be combined? [place] IS NOT under investigation for COVID-19 or is COVID-19 negative Lumbar films to eval fractures of L2 and L3 Responsible provider name and phone number to notify for critical findings if other than user placing the order and pager listed below: User placing orders pager: LAST CREATININE 1.0 (11/02/22) Report Status: Verified Date Reported: DEC 10, 2022 Date Verified: DEC 10, 2022 Learning [employer] Specialist E-Sig:/ES/TERESITA CALZADA DO Report: EXAMINATION: LUMBAR SPINE [...] Primary Interpreting Staff: TERESITA CALZADA DO, RADIOLOGIST ([employer] Specialist) /DDS TERESITA CALZADA [facility] Dec 10, 2022 09:02 AM HIP LEFT 2 VIEWS W /PELVIS: VANCE JAIN [id number] -1955 M Exm Date: DEC 10, 2022@09:02 Req Phys: RENAE JOSEPH Pat Loc: [facility] ORTHO RESIDENT 1 (Req'g Img Loc: MAIN X-RAY Service: Unknown (Case [id number] COMPLETE) HIP LEFT 2 VIEWS W/PELVIS (RAD Detailed) CPT:07466 Reason for Study: left hip pain Clinical History: IS NOT under investigation for COVID-19 or is COVID-19 negative left acetabular fx, pubic rami fx Responsible provider name and phone number to notify for critical findings if other than user placing the order and pager listed below: User placing orders pager: [phone] ortho LAST CREATININE 1.3 H (06/18/22) Report Status: Verified Date Reported: DEC 10, 2022 Date Verified: DEC 10, 2022 [employer] Specialist E-Sig:/ES/JUANITA AC MD Report: HIP LEFT 2 [...] Primary Interpreting Staff: JUANITA AC MD, RADIOLOGIST (Learning [employer] Specialist) /[facility][NOTE 2] JUANITA AC [facility] Encounter Notes: All associated encounter notes This section contains the clinical notes associated to the Encounter. Date/Time Encounter Note(s) Provider Source Dec 08, 2022 11:03 AM NEUROSURGERY CONSULT: LOCAL TITLE: NEUROSURGERY CONSULT STANDARD TITLE: NEUROSURGERY CONSULT DATE OF NOTE: DEC 08, 2022@11:03 ENTRY DATE: DEC 08, 2022@11:03:55 AUTHOR: LINSEY REYNA EXP COSIGNER: URGENCY: STATUS: COMPLETED Diagnosis: T8, T11,L2 and L3 fractures after fall July 2022 Impression: Mr. Vance Jain has been referred for continued care of Thoracic and lumbar fractures that occurred after a fall in July 2022. Patient initial trauma care was through [facility] ([facility]) Neurosurgery and Orthopedics. We have only reports from [facility] to review today regarding the thoracic and lumbar fractures to review today and these are in [facility]. In October, patient has weaned out of the brace per [facility] Neurosurgery. He is doing well with the back pain. He continues with Left lower lumbar and pelvic pain that seems related to the pelvic fracture. He will be seeing Orthopedics this Tuesday for care of this. On exam , he was found to have pain over the T8 region with palpation. We are planning to get mri of this and lumbar along with plain films to ensure the fracture is healing and the alignment is good. Patient is working with his primary care provider for optimizing bone quality. We have reviewed imaging and discussed this plan with the patient who verbalizes understanding and is in agreement. Plan: 1.Thoracic and lumbar mri to evaluate healing of fracture (palpable pain over T8) 2.Plain films of thoracic and lumbar to evaluate alignment 3. Follow up phone appointment once imaging is completed for further recommendations Linsey Reyna NP Total time:60 min _ History of Present Illness: Mr. Vance Jain is a 67 year old gentleman who is here for continued care of Thoracic and lumbar fractures that occurred after a fall in July 2022. Patient initial trauma care was through [facility] ([facility]) Neurosurgery and Orthopedics. On August 05, patient had fallen down 1/2 flight of stairs that resulted in acute fractures of T8 inferior endplate; T11, L2, and L3 superior endplates, as well as age-indeterminate compression fracture of T4 superior endplate. Also with pelvic fractures. Spinal fractures were treated with TLSO. Pelvic fractures were followed by Orthopedics and non-surgical management. Patient has since weaned out of the TLSO brace per [facility] Neurosurgery . He was told to follow up with [facility] for any ongoing care. Today, he reports having persistent pain from the pelvic fracture that encompasses the left lumbar and hip region. He has an appointment and imaging for Orthopedics this Tuesday. He denies bowel or bladder changes or further falling episodes. A complete 10 point review of systems was completed and abnormalities noted in the HPI. 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) Osteoarthritis (ICD-9-CM 715.90) PAIN, NECK/CERVICALGIA (ICD-9-CM 723.1) Posttraumatic stress disorder (SCT 66539Avxe pain ([facility] 38918079) OEF/OIF EXPOSURE TO BURN PIT SMOKE (ICD-OEF/OIF EXPOSURE TO SANDSTORMS/DUSTSTORMS (ICD-10-CM R69.) Dyspnea on exertion ([facility] 22990330) Dyspnea on exertion ([facility] 14469380) Pain radiating to right side of chest (SHypertension ([facility] 65635674) Inflammatory polyarthritis ([facility] [id number] risk drug monitoring status ([facility] [id number]) Pertinant Surgical History: Reviewed Social History: 1. Living Situation - independent Allergies: PENICILLIN DRUG 11/19/2009 23:20 HISTORICAL ZOLPIDEM DRUG 12/26/2014 11:10 HISTORICAL KENALONE INJECTION (40 MG/ML) DRUG 10/26/2018 16:04 HISTORICAL Current Outpatient med list: Active Outpatient Medications (excluding Supplies): Outpatient Medications Status 1) ALENDRONATE 10MG TAB TAKE ONE TABLET BY MOUTH EVERY ACTIVE DAY TO PREVENT BONE LOSS 2) BUPROPION HCL 150MG 24HR SA TAB TAKE 1-2 TABLETS BY ACTIVE MOUTH EVERY DAY FOR DEPRESSION DIRECTED BY PROVIDER 3) DOXEPIN HCL 10MG CAP TAKE ONE CAPSULE BY MOUTH AT ACTIVE BEDTIME NEEDED FOR INSOMNIA 4) ESZOPICLONE 3MG TAB TAKE ONE TABLET BY MOUTH AT ACTIVE BEDTIME FOR INSOMNIA 5) HYDROCHLOROTHIAZIDE 25MG TAB TAKE ONE TABLET BY MOUTH ACTIVE EVERY DAY FOR BLOOD PRESSURE 6) VORTIOXETINE 20MG TAB TAKE ONE TABLET BY MOUTH EVERY ACTIVE DAY Non-VA Medications Status 1) Non-VA ACETAMINOPHEN 325MG TAB 325MG MOUTH EVERY 6 ACTIVE HOURS NEEDED 2) Non-VA CHOLECALCIF 25MCG (D3-1,000UNIT) TAB 25MCG ACTIVE MOUTH EVERY DAY 3) Non-VA ESZOPICLONE 3MG TAB 3MG MOUTH AT BEDTIME ACTIVE 4) Non-VA HYDROXYCHLOROQUINE SULFATE 200MG TAB 200MG ACTIVE MOUTH EVERY MORNING 5) Non-VA LEFLUNOMIDE 20MG TAB 20MG MOUTH EVERY DAY ACTIVE 6) Non-VA LONG TERM MEDICATIONS MISCELLANEOUS ACTIVE 7) Non-VA SERTRALINE TAB 25MG MOUTH EVERY DAY ACTIVE 8) Non-VA SIMVASTATIN 20MG TAB 20MG MOUTH AT BEDTIME ACTIVE 14 Total Medications Imaging:horacolumbar spine x-rays, 09/06/2022 ([facility]) Indication: Assess stability of spinal fracture with TLSO bracing. Comparison: X-rays from 08/08/[address] from 08/07/2022.. Findings: AP and lateral upright views of the thoracolumbar spine. An external brace remains in place. Mild compression deformity of the T8, T11, and L2 vertebral bodies. Additional mild chronic anterior wedging of the T12 and L1 vertebral bodies. No substantial change in alignment. The bowel gas pattern is nonobstructive. Bibasilar opacity, most suggestive of atelectasis. IMPRESSION Impression: No substantial change in appearance of the thoracolumbar spine. Exam: Physical Exam General: Cooperative, well nourished, and in no acute distress. Neurological: Mental Status: Alert and engaged Oriented x4. Attentive to interview. Motor: Normal bulk/tone. No fasciculations. Movements are fluid. Strength: RUE: 5/5 shoulder abd, 5/5 elbow flex/ext, 5/5 wrist flex/ext. Rope Tow Operator 5/5, [employer]is[employer] 5/5 LUE: 5/5 shoulder abd, 5/5 elbow flex/ext, 5/5 wrist flex/ext. Rope Tow Operator 5/5, Intrinsics 5/5 RLE: 5/5 hip flex, 5/5 knee flex/ext, 5/5 dorsi/plantar flexion LLE: 5/5 hip flex, 5/5 knee flex/ext, 5/5 dorsi/plantar flexion. Sensation: Normal light touch. Reflexes: 1+ and symmetrical at biceps, brachioradialis, patella, achilles. No myoclonus. Toes downgoing, Negative hoffmans Gait: Uses can, walks bent over with slight antalgic gait. Palpable pain over Mid thoracic and left lower pelvic /es/ LINSEY REYNA NP Signed: 12/08/2022 14:51 LINSEY REYNA [facility]
--- OUTSIDE RECORDS SUMMARY | 2023-09-23 17:09 | XMS_ITS ---
DAILY HOSPITALIZATION DATA [facility] Encounter Summary Created on: September 23, 2023 SUSYJEANIN PIOTR : 1955 Sex: Male Author Name [employer] Organization [employer] Address [address] [place] [address] Support Name Relationship Address Phone MARIBELL VITO Next of Kin [address] [place] [address] MARIBELL, VITO Emergency Contact [address] [place] [address] Insurance Providers: All historical and [...] Hurt's Name Patient's Relationship to Policy Hurt [facility] (WNR) MEDICARE ADVANTAGE [facility] (WNR) May 16, 2023 [id number] JEAN JAIN IN PATIENT Selected Encounter This section includes the information on record at [place] for the Encounter. Date/Time Encounter Type Encounter Description Reason Pro vider Source September 23, 2023 03:25 AM Inpatient Visit DAILY HOSPITALIZATION DATA E Encounter Template Text not used by [place] Plan of Treatment: Future Appointments (+ 6 months) and Future Tests (+/- 45 days) The Plan of Treatment section includes future care activities for the patient from all [place] treatmentfacilities. This section includes future appointments and future orders which are active, pending or scheduled. Future Appointments This section includes appointments that were scheduled to occur 6 months from the date of the Encounter, up to a maximum of 20 appointments. The data comes from all [place] treatment facilities. Appointment Date/Time Appointment Type Appointme nt Facility Name September 27, 2023 10:30 AM AMBULATORY - PSYCHIATRY [facility] Nov 10, 2023 07:15 AM AMBULATORY - MEDICINE [facility] Nov 10, 2023 07:30 AM AMBULATORY - MEDICINE [facility] Jan 02, 2024 09:30 AM AMBULATORY MEDICINE [facility] Jan 02, 2024 10:30 AM AMBULATORY MEDICINE [facility] Active, Pending, and Scheduled Orders This section includes a listing of several types of active, pending, and scheduled orders, including clinic medications orders, diagnostic test orders, procedure orders and consult orders; where the start date of the order is 45 days before the date of the Encounter or 45 days after the date of theEncounter. The data comes from all [facility]. Test Date/Time Test Type Test Details Facility Name Sep 08, 2023 12:00 AM Laboratory - Chemistry Order COMPREHENSIVE METABOLIC PANEL+MG PLASMA SP ONCE [facility] Sep 08, 2023 12:00 AM Laboratory - Chemistry Order CBC BLOOD SP ONCE [facility] September 22, 2023 01:58 PM Consult Order [facility] TREAT[facility] Line Painting Machine Operator's Choice [facility] September 23, 2023 12:52 PM Laboratory - Microbiology Order CULTURE & SUSCEPTIBILITY SPUTUM WC ONCE [facility] September 23, 2023 12:52 PM Laboratory - Microbiology Order GRAM STAIN SPUTUM WC ONCE [facility] September 23, 2023 01:00 PM Laboratory - Microbiology Order CULTURE & SUSCEPTIBILITY BLOOD WC [facility] September 23, 2023 01:20 PM Laboratory - Microbiology Order CULTURE & SUSCEPTIBILITY BLOOD WC [facility] September 24, 2023 05:30 AM Laboratory - Chemistry Order CBC & DIFF BLOOD LC ONCE [facility] September 24, 2023 05:30 AM Laboratory - Chemistry Order COMPREHENSIVE METABOLIC PANEL+MG PLASMA LC [facility] September 24, 2023 05:30 AM Laboratory - Chemistry Order D-DIMER PLASMA LC ONCE [facility] September 24, 2023 05:30 AM Laboratory - Chemistry Order LACTIC ACID PLASMA UNITS WC ONCE [facility] Lab Results: +/- 30 days of the encounter This section includes the Chemistry and Hematology Lab Results on record with [place] for the patient. Radiology Reports and Pathology Reports are provided separately, in subsequent sections. Lab Results This section contains the Chemistry/Hematology Results that were resulted 30 days before or 30 daysafter the date of the Encounter. Date/Time Source Result Type Result - Unit Interpretation Reference Range Comment September 23, 2023 02:[address] [facility] EXTRA MINT TUBE Specimen Type: PLASMA No comment entered. Ordering Provider: REVA ROSS Report Released Date/Time: September 23, 2023 02:49 PM Reporting Lab: [facility] [phone] Performing Lab: [facility] [id number] EXTRA MINT TUBE RECEIVED September 23, 2023 04:[address] [facility] PROCALCITONIN Specimen Type: PLASMA No comment entered. Ordering Provider: WANDA BOWSER Report Released Date/Time: September 23, 2023 04:10 AM Reporting Lab: [facility] [phone] Performing Lab: [facility] [phone] PROCALCITONIN 0.11 H <0.09 September 23, 2023 04:[address] [facility] C-REACTIVE PROTEIN Specimen Type: PLASMA No comment entered. Ordering Provider: WANDA BOWSER Report Released Date/Time: September 23, 2023 04:10 AM Reporting Lab: [facility] [phone] Performing Lab: [facility] [phone] C-REACTIVE PROTEIN 81.34 H <5.00 September 23, 2023 04:[address] [facility] LIPASE Specimen Type: PLASMA No comment entered. Ordering Provider: REVA ROSS Report Released Date/Time: September 23, 2023 12:52 PM Reporting Lab: [facility] [phone] Performing Lab: [facility] [phone] LIPASE 12 <60 September 23, 2023 04:[address] [facility] CBC Specimen Type: BLOOD No comment entered. Ordering Provider: WANDA BOWSER Report Released Date/Time: September 23, 2023 04:10 AM Reporting Lab: [facility] [phone] Performing Lab: [facility] [phone] WBC 12.24 H 4.0-11.0 RBC 3.93 L 4.6-6.2 HGB 13.9 13.5-17.9 HCT 39.8 L 41-54 MCV 101.3 H 80-100 MCH 35.4 H 27-33 MCHC 34.9 32.0-37.5 PLT 236 150-400 MPV 9.3 7.4-10.4 RDW 12.0 11.5-14.5 September 23, 2023 04:[address] [facility] COMPREHENSIVE METABOLIC PANEL+MG Specimen Type: PLASMA No comment entered. Ordering Provider: WANDA BOWSER Report Released Date/Time: September 23, 2023 04:10 AM Reporting Lab: [facility] [phone] Performing Lab: [facility] [phone] CREATININE 1.1 0.7-1.2 UREA NITROGEN 16 8-26 [...] 74 >60 September 22, 2023 01:[address] [facility] DRUG SCREEN PANEL,URINE Specimen Type: URINE Comment: Presumptive Positive by screen, results not confirmed. Ordering Provider: RADHA DODD Report Released Date/Time: September 22, 2023 10:59 AM Reporting Lab: [facility] [phone] Performing Lab: [facility] [phone] BARBITURATES Negative Negative AMPHETAMINES Negative Negative COCAINE Negative Negative BENZODIAZEPINES Negative Negative CANNABINOIDS Negative Negative METHADONE Negative Negative OPIATES POSITIVE H Negative PHENCYCLIDINE Negative Negative ETHANOL,URINE Negative Negative DRUG SCREEN CREAT 290.4 >20.0 OXYCODONE Negative Negative BUPRENORPHINE Negative Negative TRAMADOL Negative Negative FENTANYL Negative Negative September 22, 2023 01:[address] [facility] URINALYSIS Specimen Type: URINE No comment entered. Ordering Provider: RADHA DODD Report Released Date/Time: September 22, 2023 10:59 AM Reporting Lab: [facility] [phone] Performing Lab: [facility] [phone] URINE COLOR YELLOW SPECIFIC GRAVITY 1.032 1.003-1.03 [...] NEGATIVE NEGATIVE September 22, 2023 01:[address] [facility] COVID-19 AND FLU/RSV DIAG PANEL(CEP21viaNetID) Specimen Typ e: NASOPHARYNGEAL Comment: Filmzu GeneXpert (618) Ordering Provider: RADHA DODD Report Released Date/Time: September 22, 2023 01:26 PM Reporting Lab: [facility] [phone] Performing Lab: [facility] [phone] COVID-19 (CEPHEID) Not Detected Not Detected INFLUENZA A (PCR) Not Detected Not Detected INFLUENZA B (PCR) Not Detected Not Detected RSV (PCR) Not Detected Not Detected September 22, 2023 10:[address] [facility] EXTRA BLUE TUBE Specimen Type: PLASMA No comment entered. Ordering Provider: RADHA DODD Report Released Date/Time: September 22, 2023 11:04 AM Reporting Lab: [facility] [phone] Performing Lab: [facility] [phone] EXTRA BLUE TUBE RECEIVED September 22, 2023 10:[address] [facility] LIPASE Specimen Type: PLASMA No comment entered. Ordering Provider: RADHA DODD Report Released Date/Time: September 22, 2023 10:59 AM Reporting Lab: [facility] [phone] Performing Lab: [facility] [address] LIPASE 27 <60 September 22, 2023 10:[address] [facility] ETHANOL Specimen Type: PLASMA No comment entered. Ordering Provider: RADHA DODD Report Released Date/Time: September 22, 2023 10:59 AM Reporting Lab: [facility] [phone] Performing Lab: [facility] [phone] ETHANOL Negative NEGATIVE September 22, 2023 10:[address] [facility] EXTRA GOLD GEL TUBE Specimen Type: SERUM No comment entered. Ordering Provider: RADHA DODD Report Released Date/Time: September 22, 2023 11:04 AM Reporting Lab: [facility] [phone] Performing Lab: [facility] [phone] EXTRA GOLD GEL TUBE RECEIVED September 22, 2023 10:[address] [facility] COMPREHENSIVE METABOLIC PANEL+MG Specimen Type: PLASMA No comment entered. Ordering Provider: RADHA DODD Report Released Date/Time: September 22, 2023 10:59 AM Reporting Lab: [facility] [phone] Performing Lab: [facility] [phone] CREATININE 1.0 0.7-1.2 UREA NITROGEN 16 8-26 [...] 82 >60 September 22, 2023 10:[address] [facility] CBC & DIFF Specimen Type: BLOOD Comment: Automated Differential Performed Ordering Provider: RADHA DODD Report Released Date/Time: September 22, 2023 10:59 AM Reporting Lab: [facility] [phone] Performing Lab: [facility] [address] WBC 16.53 H 4.0-11.0 RBC 4.55 L [...] Height Weight Body Mass Index Source September 23, 2023 04:07 PM 97.3 88 131/83 18 90 0 [facility] September 23, 2023 03:47 PM 97 94 [facility] September 23, 2023 03:09 PM 103 115/73 [facility] September 23, 2023 03:07 PM 97.4 95 107/72 16 93 0 [facility] September 23, 2023 08:01 AM 97.5 102 119/83 18 94 0 [facility] Social History: Smoking Status (Most current) and Tobacco Use (All prior to encounter date) This section includes the most current, and the historical, smoking and tobacco- related health factors from the [place] facility where the Encounter took place. Current Smoking Status This section includes the most current smoking, or tobacco-related health factor, from the [place] facility where the Encounter took place. Date/Time Current Smoking Status Comment Nigel terrazas Jun 02, 2023 11:00 AM [place]-TOBACCO QUIT 5 TO < [address] [facility] Tobacco Use History This section includes a history of the smoking, or tobacco-related health factors, that were collected on or before the date of the Encounter. The data comes from the [place] facility where the Encounter took place. Date/Time Smoking Status/Tobacco Use Comment Ramses baldwin Jun 02, 2023 11:00 AM [place]-TOBACCO QUIT 5 TO < [address] [facility] May 21, 2022 10:30 AM [place]-TOBACCO FORMER USER [facility] May 21, 2022 10:30 AM [place]-TO[place]AC[place] QU[place] [address] [facility] Nov 12, 2020 12:00 PM VA-TOBACCO FORMER USER [facility] Nov 12, 2020 12:00 PM VA-TOBACCO QUIT 5 TO < [address] [facility] May 31, 2019 06:22 AM INPT NO TOBACCO USE IN LAST [address] [facility] Nov 08, 2017 01:55 PM VA-TOBACCO FORMER USER [facility] Nov 08, 2017 01:55 PM VA-TOBACCO QUIT 1 TO < [address] [facility] May 11, 2017 12:43 PM FORMER TOBACCO USE >1Y <7Y [facility] Aug 04, 2016 10:25 AM FORMER TOBACCO USE >1Y <7Y [facility] Aug 04, 2015 11:31 AM FORMER TOBACCO USE <1Y [facility] Aug 13, 2014 10:50 AM CURRENT TOBACCO USER [facility] October 10, 2013 09:12 AM FORMER TOBACCO USER 7Y OR GREATE R [facility] May 26, 2012 10:14 AM CURRENT TOBACCO USER [facility] Nov 19, 2009 12:07 PM CUR[address] TOBACCO USER [facility] Advance Directives: All historical and current Section Date Range: From patient's date of to the date document was created. This section includes ALL of a patient's completed or amended [place] Advance and Rescinded Directives. The entries below indicate that a directive exists for the patient, but an actual copy is not included with this document. The data comes from all [facility]. Date Advance Directives Provider Source May 11, [address] [facility] Radiology Reports: +/- 30 days of the [...] the Encounter. The data comes from all [place] treatment facilities. Date/Time Radiology Report Provider Source September 23, 2023 01:38 PM CHEST 1 VIEW: CALVIN JAIN [id number] -[id number] M Exm Date: SEPTEMBER 23, 2023@13:38 Req Phys: REVA ROSS Loc: 309-23-2023@14:51 Img Loc: MAIN X-RAY Service: PRIMARY CARE - [place] [address] (Case [id number] COMPLETE) CHEST 1 VIEW (RAD Detailed) CPT:03268 Proc Modifiers : PORTABLE EXAM Reason for Study: see below Clinical History: [place] IS NOT under investigation for COVID-19 or is COVID-19 negative SIRS criteria, no overt sx, please r/o any opacities Responsible provider name and phone number to notify for critical findings if other than user placing the order and pager listed below: User placing orders pager: [phone] LAST CREATININE 1.1 (09/23/23) Report Status: Verified Date Reported: SEPTEMBER 23, 2023 Date Verified: SEPTEMBER 23, 2023 Window Installation Subcontractor E-Sig:/ES/JANETH OROZCO DO Report: EXAMINATION: CHEST 1 VIEW Reason for Study: see below IS NOT under investigation for COVID-19 or is COVID-19 negative SIRS criteria, no overt sx, please r/o any opacities Responsible provider name and phone number to notify for critical findings if other than user placing the order and pager listed below: User placing orders pager: [phone] LAST CREATININE 1.1 (09/23/23) see below TECHNIQUE: [...] Primary Interpreting Staff: JANETH OROZCO DO, RADIOLOGIST (Window Installation Subcontractor) /JANETH RASHEED [facility]
--- OUTSIDE RECORDS SUMMARY | 2023-09-23 17:09 | XMS_ITS | Encounter Summary ---
Author Name [employer] [facility] [employer] Organization [facility] Address [address], [place] [address] Support Name Relationship Address Phone MARIBELL, VITO Next of Kin [phone] [place] [address] VITO REYNA Emergency Contact [phone] [place] [address] Insurance Providers: All historical and [...] Hurt's Name Patient's Relationship to Policy Hurt [facility] (WNR) MEDICARE ADVANTAGE [facility] (WNR) May 16, 2023 [id number] JEAN JAIN IN PATIENT Selected Encounter This section includes the information on record at [place] for the Encounter. Date/Time Encounter Type Encounter Description Reason Provider Source September 22, 2023 01:00 AM Outpatient Encounter ADMIN [employer] SYSTEM,[facility] E Encounter Template Text not used by [place] Plan of Treatment: Future Appointments (+ 6 months) and Future Tests (+/- 45 days) The Plan of Treatment section includes future care activities for the patient from all [place] treatmentfacilities. This section includes future appointments and future orders which are active, pending or scheduled. Future Appointments This section includes appointments that were scheduled to occur 6 months from the date of the Encounter, up to a maximum of 20 appointments. The data comes from all [place] treatment facilities. Appointment Date/Time Appointment Type Appointme nt Facility Name September 27, 2023 10:30 AM AMBULATORY - PSYCHIATRY [facility] Patricia GALLARDO [facility] Nov 10, 2023 07:15 AM AMBULATORY - MEDICINE [facility] Nov 10, 2023 07:30 AM AMBULATORY - MEDICINE [facility] Jan 02, 2024 09:30 AM AMBULATORY - MEDICINE [facility] Jan 02, 2024 10:30 AM AMBULATORY MEDICINE [facility] Active, Pending, and Scheduled Orders This section includes a listing of several types of active, pending, and scheduled orders, including clinic medications orders, diagnostic test orders, procedure orders and consult orders; where the start date of the order is 45 days before the date of the Encounter or 45 days after the date of theEncounter. The data comes from all [facility] facilities. Test Date/Time Test Type Test Details Facility Name Sep 08, 2023 12:00 AM Laboratory - Chemistry Order COMPREHENSIVE METABOLIC PANEL+MG PLASMA SP ONCE [facility] Sep 08, 2023 12:00 AM Laboratory - Chemistry Order CBC BLOOD SP ONCE [facility] September 22, 2023 01:58 PM Consult Order [facility]REATMENT PRO[facility] Cons Wire Rope Sling Maker's Choice [facility] September 23, 2023 12:52 PM Laboratory - Microbiology Order CULTURE & SUSCEPTIBILITY SPUTUM WC ONCE [facility] September 23, 2023 12:52 PM Laboratory - Microbiology Order GRAM STAIN SPUTUM WC ONCE [facility] September 23, 2023 01:00 PM Laboratory - Microbiology Order CULTURE & SUSCEPTIBILITY BLOOD [facility] September 23, 2023 01:20 PM Laboratory - Microbiology Order CULTURE & SUSCEPTIBILITY BLOOD [facility] September 24, 2023 05:30 AM Laboratory - Chemistry Order CBC & DIFF BLOOD LC ONCE [facility] September 24, 2023 05:30 AM Laboratory - Chemistry Order COMPREHENSIVE METABOLIC PANEL+MG PLASMA LC [facility] September 24, 2023 05:30 AM Laboratory - Chemistry Order D-DIMER PLASMA LC ONCE [facility] September 24, 2023 05:30 AM Laboratory - Chemistry Order LACTIC ACID PLASMA UNITS WC ONCE [facility] Lab Results: +/- 30 days of the encounter This section includes the Chemistry and Hematology Lab Results on record with [facility] for the [facility]. Radiology Reports and Pathology Reports are provided separately, in subsequent sections. Lab Results This section contains the Chemistry/Hematology Results that were resulted 30 days before or 30 daysafter the date of the Encounter. Date/Time Source Result Type Result - Unit Interpretation Reference Range Comment September 23, 2023 02:30 PM [facility] EXTRA MINT TUBE Specimen Type: PLASMA No comment entered. Ordering Provider: REVA ROSS Report Released Date/Time: September 23, 2023 02:49 PM Reporting Lab: [facility] [id number] Performing Lab: [facility] [id number] EXTRA MINT TUBE RECEIVED September 23, 2023 04:15 AM [facility] C-REACTIVE PROTEIN Specimen Type: PLASMA No comment entered. Ordering Provider: WANDA BOWSER Report Released Date/Time: September 23, 2023 04:10 AM Reporting Lab: [facility] [id number] Performing Lab: [facility] [phone] C-REACTIVE PROTEIN 81.34 H <5.00 September 23, 2023 04:15 AM [facility] PROCALCITONIN Specimen Type: PLASMA No comment entered. Ordering Provider: WANDA BOWSER Report Released Date/Time: September 23, 2023 04:10 AM Reporting Lab: [facility] [id number] Performing Lab: [facility] [address] PROCALCITONIN 0.11 H <0.09 September 23, 2023 04:15 AM [facility] LIPASE Specimen Type: PLASMA No comment entered. Ordering Provider: REVA ROSS Report Released Date/Time: September 23, 2023 12:52 PM Reporting Lab: [facility] [phone] Performing Lab: [facility] [id number] LIPASE 12 <60 September 23, 2023 04:15 AM [facility] CBC Specimen Type: BLOOD No comment entered. Ordering Provider: WANDA BOWSER Report Released Date/Time: September 23, 2023 04:10 AM Reporting Lab: [facility] [phone] Performing Lab: [facility] [phone] WBC 12.24 H 4.0-11.0 RBC 3.93 L 4.6-6.2 HGB 13.9 13.5-17.9 HCT 39.8 L 41-54 MCV 101.3 H 80-100 MCH 35.4 H 27-33 MCHC 34.9 32.0-37.5 PLT 236 150-400 MPV 9.3 7.4-10.4 RDW 12.0 11.5-14.5 September 23, 2023 04:15 AM [facility] COMPREHENSIVE METABOLIC PANEL+MG Specimen Type: PLASMA No comment entered. Ordering Provider: WANDA BOWSER Report Released Date/Time: September 23, 2023 04:10 AM Reporting Lab: [facility] [id number] Performing Lab: [facility] [address] CREATININE 1.1 0.7-1.2 UREA NITROGEN 16 8-26 [...] 74 >60 September 22, 2023 01:33 PM [facility] DRUG SCREEN PANEL,URINE Specimen Type: URINE Comment: Presumptive Positive by screen, results not confirmed. Ordering Provider: RADHA DODD Report Released Date/Time: September 22, 2023 10:59 AM Reporting Lab: [facility] [phone] Performing Lab: [facility] [phone] BARBITURATES Negative Negative AMPHETAMINES Negative Negative COCAINE Negative Negative BENZODIAZEPINES Negative Negative CANNABINOIDS Negative Negative METHADONE Negative Negative OPIATES POSITIVE H Negative PHENCYCLIDINE Negative Negative ETHANOL,URINE Negative Negative DRUG SCREEN CREAT 290.4 >20.0 OXYCODONE Negative Negative BUPRENORPHINE Negative Negative TRAMADOL Negative Negative FENTANYL Negative Negative September 22, 2023 01:33 PM [facility] URINALYSIS Specimen Type: URINE No comment entered. Ordering Provider: RADHA DODD Report Released Date/Time: September 22, 2023 10:59 AM Reporting Lab: [facility] [phone] Performing Lab: [facility] [phone] URINE COLOR YELLOW SPECIFIC GRAVITY 1.032 1.003-1.03 [...] NEGATIVE NEGATIVE September 22, 2023 01:33 PM [facility] COVID-19 AND FLU/RSV DIAG PANEL(CEPWalkmoreID) Specimen Typ e: NASOPHARYNGEAL Comment: Selftradeid GeneXpert (618) Ordering Provider: RADHA DODD Report Released Date/Time: September 22, 2023 01:26 PM Reporting Lab: [facility] [phone] Performing Lab: [facility] [address] COVID-19 (CEPHEID) Not Detected Not Detected INFLUENZA A (PCR) Not Detected Not Detected INFLUENZA B (PCR) Not Detected Not Detected RSV (PCR) Not Detected Not Detected September 22, 2023 10:55 AM [facility] EXTRA BLUE TUBE Specimen Type: PLASMA No comment entered. Ordering Provider: RADHA DODD Report Released Date/Time: September 22, 2023 11:04 AM Reporting Lab: [facility] [address] Performing Lab: [facility] [phone] EXTRA BLUE TUBE RECEIVED September 22, 2023 10:55 AM [facility] LIPASE Specimen Type: PLASMA No comment entered. Ordering Provider: RADHA DODD Report Released Date/Time: September 22, 2023 10:59 AM Reporting Lab: [facility] [phone] Performing Lab: [facility] [address] LIPASE 27 <60 September 22, 2023 10:55 AM [facility] ETHANOL Specimen Type: PLASMA No comment entered. Ordering Provider: RADHA DODD Report Released Date/Time: September 22, 2023 10:59 AM Reporting Lab: [facility] [phone] Performing Lab: [facility] [address] ETHANOL Negative NEGATIVE September 22, 2023 10:55 AM [facility] EXTRA GOLD GEL TUBE Specimen Type: SERUM No comment entered. Ordering Provider: RADHA DODD Report Released Date/Time: September 22, 2023 11:04 AM Reporting Lab: [facility] [address] Performing Lab: [facility] [address] EXTRA GOLD GEL TUBE RECEIVED September 22, 2023 10:55 AM [facility] COMPREHENSIVE METABOLIC PANEL+MG Specimen Type: PLASMA No comment entered. Ordering Provider: RADHA DODD Report Released Date/Time: September 22, 2023 10:59 AM Reporting Lab: [facility] [phone] Performing Lab: [facility] [address] CREATININE 1.0 0.7-1.2 UREA NITROGEN 16 8-26 [...] 82 >60 September 22, 2023 10:55 AM [facility] CBC & DIFF Specimen Type: BLOOD Comment: Automated Differential Performed Ordering Provider: RADHA DODD Report Released Date/Time: September 22, 2023 10:59 AM Reporting Lab: [facility] [phone] Performing Lab: [facility] [address] WBC 16.53 H 4.0-11.0 RBC 4.55 L [...] 2023 03:44 PM 97.5 110 105/75 97 [facility] September 22, 2023 03:39 PM 240.8 34 [facility] September 22, 2023 11:11 AM 98.5 105 136/94 18 4 [facility] Social History: Smoking Status (Most current) and Tobacco Use (All prior to encounter date) This section includes the most current, and the historical, smoking and tobacco- related health factors from the [facility] where the Encounter took place. Current Smoking Status This section includes the most current smoking, or tobacco-related health factor, from the [place] facility where the Encounter took place. Date/Time Current Smoking Status Comment Nigel terrazas Jun 02, 2023 11:00 AM [place]-TOBACCO FORMER USER [facility] Tobacco Use History This section includes a history of the smoking, or tobacco-related health factors, that were collected on or before the date of the Encounter. The data comes from the [place] facility where the Encounter took place. Date/Time Smoking Status/Tobacco Use Comment F acility Jun 02, 2023 11:00 AM VA-TOBACCO QUIT 5 TO < 15 YRS [facility] May 21, 2022 10:30 AM VA-TOBACCO FORMER USER [facility] May 21, 2022 10:30 AM VA-TOBACCO QUIT [...] ALL of a patient's completed or amended [place] Advance and Rescinded Directives. The entries below indicate that a directive exists for the patient, but an actual copy is not included with this document. The data comes from all [facility]. Date Advance Directives Provider Source May [...] the Encounter. The data comes from all [place] treatment facilities. Date/Time Radiology Report Provider Source September 23, 2023 01:38 PM CHEST 1 VIEW: CALVIN JAIN [id number] -[id number] M Exm Date: SEPTEMBER 23, 2023@13:38 Req Phys: REVA ROSS Loc: 09-23-2023@14:51 Img Loc: MAIN X-RAY Service: PR[place] [address] (Case [id number] COMPLETE) CHEST 1 VIEW (RAD Detailed) CPT:22373 Proc Modifiers : PORTABLE EXAM Reason for Study: see below Clinical History: IS NOT under investigation for COVID-19 or is COVID-19 negative SIRS criteria, no overt sx, please r/o any opacities Responsible provider name and phone number to notify for critical findings if other than user placing the order and pager listed below: User placing orders pager: [phone] LAST CREATININE 1.1 (09/23/23) Report Status: Verified Date Reported: SEPTEMBER 23, 2023 Date Verified: SEPTEMBER 23, 2023 Extraction Supervisor E-Sig:/ES/JANETH OROZCO DO Report: EXAMINATION: CHEST 1 VIEW Reason for Study: see below IS NOT under investigation for COVID-19 or is COVID-19 negative SIRS criteria, no overt sx, please r/o any opacities Responsible provider name and phone number to notify for critical findings if other than user placing the order and pager listed below: User placing orders pager: [phone] LAST CREATININE 1.1 (09/23/23) see below TECHNIQUE: [...] Primary Interpreting Staff: JANETH OROZCO DO, RADIOLOGIST (Extraction Supervisor) /JANETH RASHEED [facility] Encounter Notes: All associated encounter notes This section contains the clinical notes associated to the Encounter. Date/Time Encounter Note(s) Provider Source September 22, 2023 01:00 AM CRITICAL CARE UNIT NOTE: LOCAL TITLE: [facility] EMERGENCY DEPT FLOWSHEET STANDARD TITLE: CRITICAL CARE UNIT NOTE DATE OF NOTE: SEPTEMBER 22, 2023@01:00 ENTRY DATE: SEPTEMBER 23, 2023@01:31:44 AUTHOR: BASIL FABIAN EXP COSIGNER: URGENCY: STATUS: COMPLETED This is a place hurt only. Please see Endovention to view document. /es/ Yhat-Selvz SYSTEM ICU DOCUMENT IMPORT Signed: 09/23/2023 01:31 [employer] [facility] September 22, 2023 01:00 AM CRITICAL CARE UNIT NOTE: LOCAL TITLE: [facility] RESPIRATORY THERAPY FLOWSHEET STANDARD TITLE: CRITICAL CARE UNIT NOTE DATE OF NOTE: SEPTEMBER 22, 2023@01:00 ENTRY DATE: SEPTEMBER 23, 2023@15:15:29 AUTHOR: CARENMusiwave EXP COSIGNER: URGENCY: STATUS: COMPLETED This is a place hurt only. Please see Endovention to view document. /es/ [employer] SYSTEM ICU DOCUMENT IMPORT Signed: 09/23/2023 15:15 [employer] [facility]
--- OUTSIDE RECORDS SUMMARY | 2023-09-23 17:10 | XMS_ITS | Encounter Summary ---
Author Name [employer] Organization [facility] [employer] [employer] Address [address] [place] [address] Support Name Relationship Address Phone MARIBELL VITO Next of Kin [address] [address] MARIBELL VITO Emergency Contact [address] [place] [address] Insurance Providers: All historical and [...] Hurt's Name Patient's Relationship to Policy Hurt [facility] (WNR) MEDICARE ADVANTAGE [facility] (WNR) May 16, 2023 [id number] JEAN JAIN IN PATIENT Selected Encounter This section includes the information on record at [place] for the Encounter. Date/Time Encounter Type Encounter Description Reason Provider Source September 23, 2023 03:39 AM [facility] IP/OBS [place] [address] [facility] ICD-10-CM I95.1 Orthostatic hypotension CHANO GIBSON [facility] Encounter Template Text not used by PR Assessments - Encounter Diagnoses This section includes the primary and secondary diagnoses documented for the Encounter. Date/Time Primary/Secondary Diagnosis Diagnosis Name Provider Source September 23, 2023 04:10 AM PRIMARY Orthostatic hypotension CHANO GIBSON [facility] September 23, 2023 04:10 AM SECONDARY Chest pain, unspecified CHANO GIBSON [facility] Plan of Treatment: Future Appointments (+ 6 months) and Future Tests (+/- 45 days) The Plan of Treatment section includes future care activities for the [facility] This section includes future appointments and future orders which are active, pending or scheduled. Future Appointments This section includes appointments that were scheduled to occur 6 months from the date of the Encounter, up to a maximum of 20 appointments. The data comes from all [facility]. Appointment Date/Time Appointment Type Appointme nt Facility Name September 27, 2023 10:30 AM AMBULATORY - PSYCHIATRY [facility] Nov 10, 2023 07:15 AM AMBULATORY - MEDICINE [facility] Nov 10, 2023 07:30 AM AMBULATORY MEDICINE [facility] Jan 02, 2024 09:30 AM AMBULATORY MEDICINE [facility] Jan 02, 2024 10:30 AM AMBULATORY MEDICINE [facility] Active, Pending, and Scheduled Orders This section includes a listing of several types of active, pending, and scheduled orders, including clinic medications orders, diagnostic test orders, procedure orders and consult orders; where the start date of the order is 45 days before the date of the Encounter or 45 days after the date of theEncounter. The data comes from all [facility]. Test Date/Time Test Type Test Details Facility Name Sep 08, 2023 12:00 AM Laboratory - Chemistry Order COMPREHENSIVE METABOLIC PANEL+MG PLASMA SP ONCE [facility] Sep 08, 2023 12:00 AM Laboratory - Chemistry Order CBC BLOOD SP ONCE [facility] September 22, 2023 01:58 PM Consult Order [facility] Cons Ring Spinner's Choice [facility] September 23, 2023 12:52 PM Laboratory - Microbiology Order CULTURE & SUSCEPTIBILITY SPUTUM WC ONCE [facility] September 23, 2023 12:52 PM Laboratory - Microbiology Order GRAM STAIN SPUTUM WC ONCE [facility] September 23, 2023 01:00 PM Laboratory - Microbiology Order CULTURE & SUSCEPTIBILITY BLOOD WC [facility] September 23, 2023 01:20 PM Laboratory - Microbiology Order CULTURE & SUSCEPTIBILITY BLOOD WC [facility] September 24, 2023 05:30 AM Laboratory - Chemistry Order CBC & DIFF BLOOD LC ONCE [facility] September 24, 2023 05:30 AM Laboratory - Chemistry Order COMPREHENSIVE METABOLIC PANEL+MG PLASMA LC [facility] September 24, 2023 05:30 AM Laboratory - Chemistry Order D-DIMER PLASMA LC ONCE [facility] September 24, 2023 05:30 AM Laboratory - Chemistry Order LACTIC ACID PLASMA UNITS WC ONCE [facility] Lab Results: +/- 30 days of the encounter This section includes the Chemistry and Hematology Lab Results on record with PR for the patient. Radiology Reports and Pathology Reports are provided separately, in subsequent sections. Lab Results This section contains the Chemistry/Hematology Results that were resulted 30 days before or 30 daysafter the date of the Encounter. Date/Time Source Result Type Result - Unit Interpretation Reference Range Comment September 23, 2023 02:30 PM [facility] EXTRA MINT TUBE Specimen Type: PLASMA No comment entered. Ordering Provider: REVA ROSS Report Released Date/Time: September 23, 2023 02:49 PM Reporting Lab: [facility] [id number] Performing Lab: [facility] [phone] EXTRA MINT TUBE RECEIVED September 23, 2023 04:15 AM [facility] C-REACTIVE PROTEIN Specimen Type: PLASMA No comment entered. Ordering Provider: WANDA BOWSER Report Released Date/Time: September 23, 2023 04:10 AM Reporting Lab: [facility] [phone] Performing Lab: [facility] [phone] C-REACTIVE PROTEIN 81.34 H <5.00 September 23, 2023 04:15 AM [facility] LIPASE Specimen Type: PLASMA No comment entered. Ordering Provider: REVA ROSS Report Released Date/Time: September 23, 2023 12:52 PM Reporting Lab: [facility] [phone] Performing Lab: [facility] [phone] LIPASE 12 <60 September 23, 2023 04:15 AM [facility] PROCALCITONIN Specimen Type: PLASMA No comment entered. Ordering Provider: WANDA BOWSER Report Released Date/Time: September 23, 2023 04:10 AM Reporting Lab: [facility] [phone] Performing Lab: [facility] [phone] PROCALCITONIN 0.11 H <0.09 September 23, 2023 04:15 AM [facility] CBC Specimen Type: BLOOD No comment entered. Ordering Provider: WANDA BOWSER Report Released Date/Time: September 23, 2023 04:10 AM Reporting Lab: [facility] [phone] Performing Lab: [facility] [phone] WBC 12.24 H 4.0-11.0 RBC 3.93 L 4.6-6.2 HGB 13.9 13.5-17.9 HCT 39.8 L 41-54 MCV 101.3 H 80-100 MCH 35.4 H 27-33 MCHC 34.9 32.0-37.5 PLT 236 150-400 MPV 9.3 7.4-10.4 RDW 12.0 11.5-14.5 September 23, 2023 04:15 AM [facility] COMPREHENSIVE METABOLIC PANEL+MG Specimen Type: PLASMA No comment entered. Ordering Provider: WANDA BOWSER Report Released Date/Time: September 23, 2023 04:10 AM Reporting Lab: [facility] [phone] Performing Lab: [facility] [address] CREATININE 1.1 0.7-1.2 UREA NITROGEN 16 8-26 [...] 74 >60 September 22, 2023 01:33 PM [facility] DRUG SCREEN PANEL,URINE Specimen Type: URINE Comment: Presumptive Positive by screen, results not confirmed. Ordering Provider: RADHA DODD Report Released Date/Time: September 22, 2023 10:59 AM Reporting Lab: [facility] [phone] Performing Lab: [facility] [phone] BARBITURATES Negative Negative AMPHETAMINES Negative Negative COCAINE Negative Negative BENZODIAZEPINES Negative Negative CANNABINOIDS Negative Negative METHADONE Negative Negative OPIATES POSITIVE H Negative PHENCYCLIDINE Negative Negative ETHANOL,URINE Negative Negative DRUG SCREEN CREAT 290.4 >20.0 OXYCODONE Negative Negative BUPRENORPHINE Negative Negative TRAMADOL Negative Negative FENTANYL Negative Negative September 22, 2023 01:33 PM [facility] URINALYSIS Specimen Type: URINE No comment entered. Ordering Provider: RADHA DODD Report Released Date/Time: September 22, 2023 10:59 AM Reporting Lab: [facility] [phone] Performing Lab: [facility] [phone] URINE COLOR YELLOW SPECIFIC GRAVITY 1.032 1.003-1.03 [...] NEGATIVE NEGATIVE September 22, 2023 01:33 PM [facility] COVID-19 AND FLU/RSV DIAG PANEL(CEPHEID) Specimen Typ e: NASOPHARYNGEAL Comment: Cepheid GeneXpert (618) Ordering Provider: RADHA DODD Report Released Date/Time: September 22, 2023 01:26 PM Reporting Lab: [facility] [phone] Performing Lab: [facility] [phone] COVID-19 (CEPHEID) Not Detected Not Detected INFLUENZA A (PCR) Not Detected Not Detected INFLUENZA B (PCR) Not Detected Not Detected RSV (PCR) Not Detected Not Detected September 22, 2023 10:55 AM [facility] EXTRA BLUE TUBE Specimen Type: PLASMA No comment entered. Ordering Provider: RADHA DODD Report Released Date/Time: September 22, 2023 11:04 AM Reporting Lab: [facility] [phone] Performing Lab: [facility] [phone] EXTRA BLUE TUBE RECEIVED September 22, 2023 10:55 AM [facility] LIPASE Specimen Type: PLASMA No comment entered. Ordering Provider: RADHA DODD Report Released Date/Time: September 22, 2023 10:59 AM Reporting Lab: [facility] [phone] Performing Lab: [facility] [phone] LIPASE 27 <60 September 22, 2023 10:55 AM [facility] EXTRA GOLD GEL TUBE Specimen Type: SERUM No comment entered. Ordering Provider: RADHA DODD Report Released Date/Time: September 22, 2023 11:04 AM Reporting Lab: [facility] [phone] Performing Lab: [facility] [phone] EXTRA GOLD GEL TUBE RECEIVED September 22, 2023 10:55 AM [facility] ETHANOL Specimen Type: PLASMA No comment entered. Ordering Provider: RADHA DODD Report Released Date/Time: September 22, 2023 10:59 AM Reporting Lab: [facility] [phone] Performing Lab: [facility] [phone] ETHANOL Negative NEGATIVE September 22, 2023 10:55 AM [facility] COMPREHENSIVE METABOLIC PANEL+MG Specimen Type: PLASMA No comment entered. Ordering Provider: RADHA DODD Report Released Date/Time: September 22, 2023 10:59 AM Reporting Lab: [facility] [phone] Performing Lab: [facility] [phone] CREATININE 1.0 0.7-1.2 UREA NITROGEN 16 8-26 [...] 82 >60 September 22, 2023 10:55 AM [facility] CBC & DIFF Specimen Type: BLOOD Comment: Automated Differential Performed Ordering Provider: RADHA DODD Report Released Date/Time: September 22, 2023 10:59 AM Reporting Lab: [facility] [phone] Performing Lab: [facility] [address] WBC 16.53 H 4.0-11.0 RBC 4.55 L [...] PM 97.3 88 131/[address] [facility] September 23, 2023 03:[address] [facility] September 23, 2023 03:09 PM 103 115/73 [facility] September 23, 2023 03:07 PM 97.4 95 107/[address] [facility] September 23, 2023 08:01 AM 97.5 102 119/[address] [facility] Social History: Smoking Status (Most current) and Tobacco Use (All prior to encounter date) This section includes the most current, and the historical, smoking and tobacco- related health factors from the [place] facility where the Encounter took place. Current Smoking Status This section includes the most current smoking, or tobacco-related health factor, from the PR facility where the Encounter took place. Date/Time Current Smoking Status Antonella terrazas Jun 02, 2023 11:00 AM VA-TOBACCO FORMER USER [facility] Tobacco Use History This section includes a history of the smoking, or tobacco-related health factors, that were collected on or before the date of the Encounter. The data comes from the PR facility where the Encounter took place. Date/Time Smoking Status/Tobacco Use Comment F acility Jun 02, 2023 11:00 AM VA-TOBACCO QUIT 5 TO < 15 YRS [facility] May 21, 2022 10:30 AM VA-TOBACCO FORMER USER [facility] May 21, 2022 10:30 AM VA-TOBACCO QUIT 15 YRS OR MORE [facility] Nov 12, 2020 12:00 PM VA-TOBACCO FORMER USER [facility] Nov 12, 2020 12:00 PM VA-TOBACCO QUIT 5 TO < 15 YRS [facility] May 31, 2019 06:22 AM INPT NO TOBACCO USE IN LAST 30 D AYS [facility] Nov 08, 2017 01:55 PM VA-TOBACCO FORMER USER [facility] Nov 08, 2017 01:55 PM PR-TOBACCO QUIT 1 TO < 5 YRS [facility] May 11, 2017 12:43 PM FORMER TOBACCO USE >1Y <7Y [facility] Aug 04, 2016 10:25 AM FORMER TOBACCO USE >1Y <7Y [facility] Aug 04, 2015 11:31 AM FORMER TOBACCO USE <1Y [facility] Aug 13, 2014 10:50 AM CURRENT TOBACCO USER [facility] October 10, 2013 09:12 AM FORMER TOBACCO USER 7Y OR GREATE R [facility] May 26, 2012 10:14 AM CURRENT TOBACCO USER [facility] Nov 19, 2009 12:07 PM CURRENT TOBACCO USER [facility] Advance Directives: All historical and current Section Date Range: From patient's date of to the date document was created. This section includes ALL of a patient's completed or amended [place] Advance and Rescinded Directives. The entries below indicate that a directive exists for the patient, but an actual copy is not included with this document. The data comes from all [place] facilities. Date Advance Directives Provider Source May 11, 2006 ADVANCE DIRECTIVE ASH RAZO [facility] Radiology Reports: +/- 30 days [...] the Encounter. The data comes from all [place] treatment facilities. Date/Time Radiology Report Provider Source September 23, 2023 01:38 PM CHEST 1 VIEW: CALVIN JAIN [id number] -[id number] M Exm Date: SEPTEMBER 23, 2023@13:38 Req Phys: REVA ROSS [facility] Loc: 3/09-23-2023@14:51 Img Loc: MAIN X-RAY Service: [place] [address] (Case [id number] COMPLETE) CHEST 1 VIEW (RAD Detailed) CPT:74557 Proc Modifiers : PORTABLE EXAM Reason for Study: see below Clinical History: Mullin IS NOT under investigation for COVID-19 or is COVID-19 negative SIRS criteria, no overt sx, please r/o any opacities Responsible provider name and phone number to notify for critical findings if other than user placing the order and pager listed below: User placing orders pager: [phone] LAST CREATININE 1.1 (09/23/23) Report Status: Verified Date Reported: SEPTEMBER 23, 2023 Date Verified: SEPTEMBER 23, 2023 Coat Finisher E-Sig:/[email or web address]/JANETH OROZCO DO Report: EXAMINATION: CHEST 1 VIEW Reason for Study: see below [place] IS NOT under investigation for COVID-19 or is COVID-19 negative SIRS criteria, no overt sx, please r/o any opacities Responsible provider name and phone number to notify for critical findings if other than user placing the order and pager listed below: User placing orders pager: [phone] LAST CREATININE 1.1 (09/23/23) see below TECHNIQUE: [...] Primary Interpreting Staff: JANETH OROZCO DO, RADIOLOGIST (Coat Finisher) /JANETH RASHEED [facility] Encounter Notes: All associated encounter notes This section contains the clinical notes associated to the Encounter. Date/Time Encounter Note(s) Provider Source September 23, 2023 03:39 AM PSYCHIATRY E & M NOTE: LOCAL TITLE: PSYCHIATRIC EVALUATION & MANAGEMENT STANDARD TITLE: PSYCHIATRY E & M NOTE DATE OF NOTE: SEPTEMBER 23, 2023@03:39 ENTRY DATE: SEPTEMBER 23, 2023@03:39:27 AUTHOR: JOVANY GIBSON COSIGNER: URGENCY: STATUS: COMPLETED POD CROSS-COVER NOTE Called: Patient found down by RN in his urine in his room, PORTFOLIO LEAD was called to evaluate him, please come evaluate. Interview: Patient seen in his room on 1L. Describing getting up and walking to bathroom in the night, falling d/t lightheadedness and urinating himself on the floor. States he did not lose conciousness or hit his head on falling from standing. States he also has ongoing SOB and CP which doesn't radiate and is not provoked by movement that resembles his chronic heart burn for which he is currently being treated. Feels he is dehydrated. Has fallen from dehydration in the past, last four days ago. Stopped drinking after drinking very heavily roughly 5 days ago. No history of seizure, DTs or complicated withdrawal. PMH Active problems - Computerized Problem List is the source for the followin. Osteoarthritis of knee (SNOMED CT 858316815) 2. Primary Obesity 3. Screening for Ischemic Heart Disease 4. Primary insomnia 5. Low back pain (SNOMED CT 483496207) 6. Sacroiliitis 7. Tobacco Use Disorder, Continuous - Quit cigarettes 2012 8. Sensorineural Hearing Loss, Bilateral 9. Pseudogout - Left knee 10. Hyperlipidemia (SNOMED CT 96815449) 11. Obstructive Sleep Apnea (Adult) (Pediatric) - 07/06/12 Mild: PRDI 16.4: on CPAP. 12. Depression * 13. 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 Compression fracture of thoracic spine (SNOMED CT 126313086) 16. PAIN, NECK/CERVICALGIA 17. Posttraumatic stress disorder - has service dog 18. Knee pain 19. OEF/OIF EXPOSURE TO BURN PIT SMOKE 20. OEF/OIF EXPOSURE TO SANDSTORMS/DUSTSTORMS 21. Dyspnea on exertion (SNOMED CT 40102684) 22. Dyspnea on exertion 23. Pain radiating to right side of chest 24. Hypertension 25. Inflammatory polyarthritis 26. High risk drug monitoring status 27. Ethanol abuse 28. Exposure to potentially hazardous substance ([facility] [id number]) - Entered through [facility] SHELL Documentation Initiative MEDICATIONS Active and Recently Inpatient Medications (including Supplies): Active Inpatient Medications Status 1) ACETAMINOPHEN (INPT) TAB 650MG PO Q4H PRN For Pain, ACTIVE For Headache MAX DOSE of acetaminophen is 4000mg in 24 hours. 2) ALENDRONATE TAB 10MG PO QDAY ACTIVE 3) CALCIUM CARBONATE TAB 650MG PO QID PRN For ACTIVE Indigestion/Heartburn 4) CHOLECALCIFEROL TAB 25MCG PO QDAY ACTIVE 5) CYANOCOBALAMIN TAB 1000MCG PO QDAY ACTIVE 6) FOLIC ACID TAB 1MG PO QDAY ACTIVE 7) HYDROCHLOROTHIAZIDE TAB 25MG PO QDAY ACTIVE 8) MAGNESIUM OXIDE TAB 420MG PO QHS ACTIVE 9) NALTREXONE TAB 50MG PO QDAY ACTIVE 10) OMEPRAZOLE CAP,EC 20MG PO DQDAY Take at least 30 min ACTIVE prior to meal on empty stomach 11) ONDANSETRON TAB,ORAL DISINTEGRATING 4MG SL Q6H PRN ACTIVE for nausea 12) PRAZOSIN CAP,ORAL 1MG PO QHS ACTIVE 13) THIAMINE TAB 100MG PO QDAY ACTIVE 14) VORTIOXETINE TAB,ORAL 20MG PO QDAY ACTIVE ALLERGIES PENICILLIN (Nov 19, 2009) ZOLPIDEM (Dec 26, 2014) KENALONE INJECTION (40 MG/ML) (Oct 26, 2018) Temperature: 97.5 F [36.4 C] (09/22/2023 15:44) Pulse: 118 (09/23/2023 03:15) Respirations: 20 (09/23/2023 03:15) Blood Pressure: 111/68 (09/23/2023 03:15) Pain: 0 (09/23/2023 02:48) LABS: LAB RESULTS TODAY - NONE FOUND Mr. Jain is a 68 year old gentleman admitted under OBS for a night to 1L. Plan was to stay overnight on 1L then be discharged to his sister on Tuesday (09/22/23) until his enrollment into the RRTP program. Came through the ED with abdominal pain and vomiting. Called re: fall and PORTFOLIO LEAD activation. Patient with syncopal episode w/o LOC and accompanying CP and SOB with white count and possible non- specific ST change vs. artifact on EKG in the ED yesterday. Requested MOD involvement for further evaluation of appropriateness of 1L LOC given orthostasis, CP and SOB. Plan: - MOD requested transfer to acute care - order was placed Jovany Gibson, DO POD, Fee-Basis Physician /ubaldo/ JOVANY GIBSON Fee Basis Physician Signed: 09/23/2023 04:10 Receipt Acknowledged By: 09/23/2023 10:17 /ubaldo/ SCARLETT KHOURY MD 09/23/2023 07:10 /ubaldo/ DIXIE GROSS PA-C PHYSICIAN CYBER SECURITY MANAGER, MENTAL HEALTH JOVANY GIBSON [facility]
--- OUTSIDE RECORDS SUMMARY | 2023-09-23 17:10 | XMS_ITS ---
DAILY HOSPITALIZATION DATA [facility] Encounter Summary Created on: September 23, 2023 SUSYJEANIN PIOTR : 1955 Sex: Male Author Name [employer] Organization [employer] Address [address] [place] [address] Support Name Relationship Address Phone MARIBELL VITO Next of Kin [id number] [address] MARIBELL, VITO Emergency Contact [address] [place] [address] Insurance Providers: All historical and [...] Hurt's Name Patient's Relationship to Policy Hurt [facility] (WNR) MEDICARE ADVANTAGE [facility] (WNR) May 16, 2023 [id number] JEAN JAIN IN PATIENT Selected Encounter This section includes the information on record at NE for the Encounter. Date/Time Encounter Type Encounter Description Reason Pro vider Source September 23, 2023 04:57 AM Inpatient Visit DAILY HOSPITALIZATION DATA E Encounter Template Text not used by NE Plan of Treatment: Future Appointments (+ 6 months) and Future Tests (+/- 45 days) The Plan of Treatment section includes future care activities for the patient from all NE treatmentfacilities. This section includes future appointments and future orders which are active, pending or scheduled. Future Appointments This section includes appointments that were scheduled to occur 6 months from the date of the Encounter, up to a maximum of 20 appointments. The data comes from all [place] treatment facilities. Appointment Date/Time Appointment Type Appointme nt Facility Name September 27, 2023 10:30 AM AMBULATORY - PSYCHIATRY [facility] Nov 10, 2023 07:15 AM AMBULATORY - MEDICINE [facility] Nov 10, 2023 07:30 AM AMBULATORY - MEDICINE [facility] Jan 02, 2024 09:30 AM AMBULATORY MEDICINE [facility] Jan 02, 2024 10:30 AM AMBULATORY MEDICINE [facility] Active, Pending, and Scheduled Orders [...] Order COMPREHENSIVE METABOLIC PANEL+MG PLASMA SP ONCE [facility] Sep 08, 2023 12:00 AM Laboratory - Chemistry Order CBC BLOOD SP ONCE [facility] September 22, 2023 01:58 PM Consult Order [facility] TREAT[facility] Project Buyer's Choice [facility] September 23, 2023 12:52 PM Laboratory - Microbiology Order GRAM STAIN SPUTUM WC ONCE [facility] September 23, 2023 12:52 PM Laboratory - Microbiology Order CULTURE & SUSCEPTIBILITY SPUTUM WC ONCE [facility] September 23, 2023 01:00 PM Laboratory - Microbiology Order CULTURE & SUSCEPTIBILITY BLOOD WC [facility] September 23, 2023 01:20 PM Laboratory - Microbiology Order CULTURE & SUSCEPTIBILITY BLOOD WC [facility] September 24, 2023 05:30 AM Laboratory - Chemistry Order CBC & DIFF BLOOD LC ONCE [facility] September 24, 2023 05:30 AM Laboratory - Chemistry Order COMPREHENSIVE METABOLIC PANEL+MG PLASMA LC [facility] September 24, 2023 05:30 AM Laboratory - Chemistry Order D-DIMER PLASMA LC ONCE [facility] September 24, 2023 05:30 AM Laboratory - Chemistry Order LACTIC ACID PLASMA UNITS WC ONCE [facility] Lab Results: +/- 30 days of the encounter This section includes the Chemistry and Hematology Lab Results on record with NE for the patient. Radiology Reports and Pathology Reports are provided separately, in subsequent sections. Lab Results This section contains the Chemistry/Hematology Results that were resulted 30 days before or 30 daysafter the date of the Encounter. Date/Time Source Result Type Result - Unit Interpretation Reference Range Comment September 23, 2023 02:30 PM [facility] EXTRA MINT TUBE Specimen Type: PLASMA No comment entered. Ordering Provider: REVA ROSS Report Released Date/Time: September 23, 2023 02:49 PM Reporting Lab: [facility] [id number] Performing Lab: [facility] [id number] EXTRA MINT TUBE RECEIVED September 23, 2023 04:15 AM [facility] PROCALCITONIN Specimen Type: PLASMA No comment entered. Ordering Provider: WANDA BOWSER Report Released Date/Time: September 23, 2023 04:10 AM Reporting Lab: [facility] [id number] Performing Lab: [facility] [phone] PROCALCITONIN 0.11 H <0.09 September 23, 2023 04:15 AM [facility] C-REACTIVE PROTEIN Specimen Type: PLASMA No comment entered. Ordering Provider: WANDA BOWSER Report Released Date/Time: September 23, 2023 04:10 AM Reporting Lab: [facility] [phone] Performing Lab: [facility] [id number] C-REACTIVE PROTEIN 81.34 H <5.00 September 23, 2023 04:15 AM [facility] LIPASE Specimen Type: PLASMA No comment entered. Ordering Provider: REVA ROSS Report Released Date/Time: September 23, 2023 12:52 PM Reporting Lab: [facility] [phone] Performing Lab: [facility] [address] LIPASE 12 <60 September 23, 2023 04:15 AM [facility] COMPREHENSIVE METABOLIC PANEL+MG Specimen Type: PLASMA No comment entered. Ordering Provider: WANDA BOWSER Report Released Date/Time: September 23, 2023 04:10 AM Reporting Lab: [facility] [phone] Performing Lab: [facility] [phone] CREATININE 1.1 0.7-1.2 UREA NITROGEN 16 8-26 GLUCOSE 152 H 70-100 SODIUM 133 L 136-145 POTASSIUM 3.8 3.5-5.1 CHLORIDE 95 L 98-107 CO2 20 L 22-29 CALCIUM 9.7 8.4-10.2 PROTEIN,TOTAL 6.8 6.0-8.3 ALBUMIN 3.9 3.5-5.2 BILIRUBIN, TOTAL 0.7 0.2-1.2 MAGNESIUM 1.8 1.6-2.6 ANION GAP 18 H 5-15 ALKALINE PHOSPHATASE 123 40-150 ALT/SGPT 42 <55 AST/SGOT 32 <34 .CREAT EGFR(CKD-EPI) 74 >60 September 23, 2023 04:15 AM [facility] CBC Specimen Type: BLOOD No comment entered. Ordering Provider: WANDA BOWSER Report Released Date/Time: September 23, 2023 04:10 AM Reporting Lab: [facility] [phone] Performing Lab: [facility] [phone] WBC 12.24 H 4.0-11.0 RBC 3.93 L 4.6-6.2 HGB 13.9 13.5-17.9 HCT 39.8 L 41-54 MCV 101.3 H 80-100 MCH 35.4 H 27-33 MCHC 34.9 32.0-37.5 PLT 236 150-400 MPV 9.3 7.4-10.4 RDW 12.0 11.5-14.5 September 22, 2023 01:33 PM [facility] URINALYSIS Specimen Type: URINE No comment entered. Ordering Provider: RADHA DODD Report Released Date/Time: September 22, 2023 10:59 AM Reporting Lab: [facility] [address] Performing Lab: [facility] [address] URINE COLOR YELLOW SPECIFIC GRAVITY 1.032 1.003-1.03 [...] NEGATIVE NEGATIVE September 22, 2023 01:33 PM [facility] DRUG SCREEN PANEL,URINE Specimen Type: URINE Comment: Presumptive Positive by screen, results not confirmed. Ordering Provider: RADHA DODD Report Released Date/Time: September 22, 2023 10:59 AM Reporting Lab: [facility] [phone] Performing Lab: [facility] [phone] BARBITURATES Negative Negative AMPHETAMINES Negative Negative COCAINE Negative Negative BENZODIAZEPINES Negative Negative CANNABINOIDS Negative Negative METHADONE Negative Negative OPIATES POSITIVE H Negative PHENCYCLIDINE Negative Negative ETHANOL,URINE Negative Negative DRUG SCREEN CREAT 290.4 >20.0 OXYCODONE Negative Negative BUPRENORPHINE Negative Negative TRAMADOL Negative Negative FENTANYL Negative Negative September 22, 2023 01:33 PM [facility] COVID-19 AND FLU/RSV DIAG PANEL(CEPHEID) Specimen Typ e: NASOPHARYNGEAL Comment: CepSwrveid GeneXpert (618) Ordering Provider: RADHA DODD Report Released Date/Time: September 22, 2023 01:26 PM Reporting Lab: [facility] [phone] Performing Lab: [facility] [phone] COVID-19 (CEPHEID) Not Detected Not Detected INFLUENZA A (PCR) Not Detected Not Detected INFLUENZA B (PCR) Not Detected Not Detected RSV (PCR) Not Detected Not Detected September 22, 2023 10:55 AM [facility] EXTRA BLUE TUBE Specimen Type: PLASMA No comment entered. Ordering Provider: RADHA DODD Report Released Date/Time: September 22, 2023 11:04 AM Reporting Lab: [facility] [phone] Performing Lab: [facility] [phone] EXTRA BLUE TUBE RECEIVED September 22, 2023 10:55 AM [facility] LIPASE Specimen Type: PLASMA No comment entered. Ordering Provider: RADHA DODD Report Released Date/Time: September 22, 2023 10:59 AM Reporting Lab: [facility] [address] Performing Lab: [facility] [address] LIPASE 27 <60 September 22, 2023 10:55 AM [facility] COMPREHENSIVE METABOLIC PANEL+MG Specimen Type: PLASMA No comment entered. Ordering Provider: RADHA DODD Report Released Date/Time: September 22, 2023 10:59 AM Reporting Lab: [facility] [address] Performing Lab: [facility] [address] CREATININE 1.0 0.7-1.2 UREA NITROGEN 16 8-26 [...] 82 >60 September 22, 2023 10:55 AM [facility] ETHANOL Specimen Type: PLASMA No comment entered. Ordering Provider: RADHA DODD Report Released Date/Time: September 22, 2023 10:59 AM Reporting Lab: [facility] [address] Performing Lab: [facility] [address] ETHANOL Negative NEGATIVE September 22, 2023 10:55 AM [facility] CBC & DIFF Specimen Type: BLOOD Comment: Automated Differential Performed Ordering Provider: RADHA DODD Report Released Date/Time: September 22, 2023 10:59 AM Reporting Lab: [facility] [phone] Performing Lab: [facility] [address] WBC 16.53 H 4.0-11.0 RBC 4.55 L [...] 1.3 ABS IMMATURE GRAN 0.21 H 0-0.1 September 22, 2023 10:55 AM [facility] EXTRA GOLD GEL TUBE Specimen Type: SERUM No comment entered. Ordering Provider: RADHA DODD Report Released Date/Time: September 22, 2023 11:04 AM Reporting Lab: [facility] [address] Performing Lab: [facility] [phone] EXTRA GOLD GEL TUBE RECEIVED Vital Signs: All taken on the encounter date This section contains inpatient and outpatient Vital Signs collected on the date of the Encounter. Date/Time Temperature Pulse Blood Pressure Respiratory Rate SP02 Pain Height Weight Body Mass Index Source September 23, 2023 04:07 PM 97.3 88 131/83 18 90 0 [facility] September 23, 2023 03:47 PM 97 94 [facility] September 23, 2023 03:09 PM 103 115/73 [facility] September 23, 2023 03:07 PM 97.4 95 107/72 16 93 0 [facility] September 23, 2023 08:01 AM 97.5 102 119/83 18 94 0 [facility] Social History: Smoking Status (Most current) and Tobacco Use (All prior to encounter date) This section includes the most current, and the historical, smoking and tobacco- related health factors from the NE facility where the Encounter took place. Current Smoking Status This section includes the most current smoking, or tobacco-related health factor, from the NE facility where the Encounter took place. Date/Time Current Smoking Status Comment Nigel terrazas Jun 02, 2023 11:00 AM VA-TOBACCO FORMER USER [facility] Tobacco Use History This section includes a history of the smoking, or tobacco-related health factors, that were collected on or before the date of the Encounter. The data comes from the NE facility where the Encounter took place. Date/Time Smoking Status/Tobacco Use Comment Ramses baldwin Jun 02, 2023 11:00 AM VA-TOBACCO QUIT 5 TO < 15 YRS [facility] May 21, 2022 10:30 AM VA-TOBACCO FORMER USER [facility] May 21, 2022 10:30 AM VA-TOBACCO QUIT 15 YRS OR MORE [facility] Nov 12, 2020 12:00 PM VA-TOBACCO FORMER USER [facility] Nov 12, 2020 12:00 PM VA-TOBACCO QUIT 5 TO < 15 YRS [facility] May 31, 2019 06:22 AM INPT NO TOBACCO USE IN LAST 30 D AYS [facility] Nov 08, 2017 01:55 PM VA-TOBACCO FORMER USER [facility] Nov 08, 2017 01:55 PM VA-TOBACCO QUIT 1 TO < 5 YRS [facility] May 11, 2017 12:43 PM FORMER TOBACCO USE >1Y <7Y [facility] Aug 04, 2016 10:25 AM FORMER TOBACCO USE >1Y <7Y [facility] Aug 04, 2015 11:31 AM FORMER TOBACCO USE <1Y [facility] Aug 13, 2014 10:50 AM CURRENT TOBACCO USER [facility] October 10, 2013 09:12 AM FORMER TOBACCO USER 7Y OR GREATE R [facility] May 26, 2012 10:14 AM CURRENT TOBACCO USER [facility] Nov 19, 2009 12:07 PM CURRENT TOBACCO USER [facility] Advance Directives: All historical and current Section Date Range: From patient's date of to the date document was created. This section includes ALL of a patient's completed or amended NE Advance and Rescinded Directives. The entries below indicate that a directive exists for the patient, but an actual copy is not included with this document. The data comes from all [facility]. Date Advance Directives Provider Source May 11, 2006 ADVANCE DIRECTIVE ASH RAZO [facility] Radiology Reports: +/- 30 days of [...] the Encounter. The data comes from all [place] treatment facilities. Date/Time Radiology Report Provider Source September 23, 2023 01:38 PM CHEST 1 VIEW: CALVIN JAIN [id number] -1955 M Exm Date: SEPTEMBER 23, 2023@13:38 Req Phys: REVA ROSS Pat Loc: 309-23-2023@14:51 Img Loc: MAIN X-RAY Service: [place] [address] (Case [id number] COMPLETE) CHEST 1 VIEW (RAD Detailed) CPT:02396 Proc Modifiers : PORTABLE EXAM Reason for Study: see below Clinical History: IS NOT under investigation for COVID-19 or is COVID-19 negative SIRS criteria, no overt sx, please r/o any opacities Responsible provider name and phone number to notify for critical findings if other than user placing the order and pager listed below: User placing orders pager: [phone] LAST CREATININE 1.1 (09/23/23) Report Status: Verified Date Reported: SEPTEMBER 23, 2023 Date Verified: SEPTEMBER 23, 2023 Utilization Engineer E-Sig:/ES/JANETH OROZCO DO Report: EXAMINATION: CHEST 1 VIEW Reason for Study: see below IS NOT under investigation for COVID-19 or is COVID-19 negative SIRS criteria, no overt sx, please r/o any opacities Responsible provider name and phone number to notify for critical findings if other than user placing the order and pager listed below: User placing orders pager: [phone] LAST CREATININE 1.1 (09/23/23) see below TECHNIQUE: [...] Primary Interpreting Staff: JANETH OROZCO DO, RADIOLOGIST (Utilization Engineer) /JANETH RASHEED [facility]
--- OUTSIDE RECORDS SUMMARY | 2023-09-23 17:11 | XMS_ITS | Encounter Summary ---
Author Name [facility] Organization [facility] Address [address] [place] [address] Support Name Relationship Address Phone VITO REYNA Next of Kin [id number] [place] [address] MARIBELL, VITO Emergency Contact [address] [place] [address] Insurance Providers: All historical and [...] Hurt's Name Patient's Relationship to Policy Hurt [facility] (WNR) MEDICARE ADVANTAGE [facility] (WNR) May 16, 2023 [id number] JEAN JAIN IN PATIENT Selected Encounter This section includes the information on record at MA for the Encounter. Date/Time Encounter Type Encounter Description Reason Pro vider Source September 23, 2023 12:00 AM Inpatient Visit EVENT (HISTORICAL) IHE Encounter Template Text not used by MA Plan of Treatment: Future Appointments (+ 6 months) and Future Tests (+/- 45 days) The Plan of Treatment section includes future care activities for the patient from all [place] treatmentfacilities. This section includes future appointments and future orders which are active, pending or scheduled. Future Appointments This section includes appointments that were scheduled to occur 6 months from the date of the Encounter, up to a maximum of 20 appointments. The data comes from all [place] treatment facilities. Appointment Date/Time Appointment Type Appointme nt Facility Name September 27, 2023 10:30 AM AMBULATORY - PSYCHIATRY [facility] Nov 10, 2023 07:15 AM AMBULATORY - MEDICINE [facility] Nov 10, 2023 07:30 AM AMBULATORY - MEDICINE [facility] Jan 02, 2024 09:30 AM AMBULATORY MEDICINE [facility] Jan 02, 2024 10:30 AM AMBULATORY MEDICINE [facility] Active, Pending, and Scheduled Orders This section includes a listing of several types of active, pending, and scheduled orders, including clinic medications orders, diagnostic test orders, procedure orders and consult orders; where the start date of the order is 45 days before the date of the Encounter or 45 days after the date of theEncounter. The data comes from all [facility]. Test Date/Time Test Type Test Details Facility Name Sep 08, 2023 12:00 AM Laboratory - Chemistry Order COMPREHENSIVE METABOLIC PANEL+MG PLASMA SP ONCE [facility] Sep 08, 2023 12:00 AM Laboratory - Chemistry Order CBC BLOOD SP ONCE [facility] September 22, 2023 01:58 PM Consult Order [facility]AT[facility] Cons [place] Supervisor's Choice [facility] September 23, 2023 12:52 PM Laboratory - Microbiology Order CULTURE & SUSCEPTIBILITY SPUTUM WC ONCE [facility] September 23, 2023 12:52 PM Laboratory - Microbiology Order GRAM STAIN SPUTUM WC ONCE [facility] September 23, 2023 01:00 PM Laboratory - Microbiology Order CULTURE & SUSCEPTIBILITY BLOOD WC [facility] September 23, 2023 01:20 PM Laboratory - Microbiology Order CULTURE & SUSCEPTIBILITY BLOOD [facility] September 24, 2023 05:30 AM Laboratory - Chemistry Order CBC & DIFF BLOOD LC ONCE [facility] September 24, 2023 05:30 AM Laboratory - Chemistry Order D-DIMER PLASMA LC ONCE [facility] September 24, 2023 05:30 AM Laboratory - Chemistry Order LACTIC ACID PLASMA UNITS WC ONCE [facility] September 24, 2023 05:30 AM Laboratory - Chemistry Order COMPREHENSIVE METABOLIC PANEL+MG PLASMA LC [facility] Lab Results: +/- 30 days of the encounter This section includes the Chemistry and Hematology Lab Results on record with MA for the patient. Radiology Reports and Pathology Reports are provided separately, in subsequent sections. Lab Results This section contains the Chemistry/Hematology Results that were resulted 30 days before or 30 daysafter the date of the Encounter. Date/Time Source Result Type Result - Unit Interpretation Reference Range Comment September 23, 2023 02:30 PM [facility] EXTRA MINT TUBE Specimen Type: PLASMA No comment entered. Ordering Provider: REVA ROSS Report Released Date/Time: September 23, 2023 02:49 PM Reporting Lab: [facility] [id number] Performing Lab: [facility] [phone] EXTRA MINT TUBE RECEIVED September 23, 2023 04:15 AM [facility] PROCALCITONIN Specimen Type: PLASMA No comment entered. Ordering Provider: WANDA BOWSER Report Released Date/Time: September 23, 2023 04:10 AM Reporting Lab: [facility] [address] Performing Lab: [facility] [address] PROCALCITONIN 0.11 H <0.09 September 23, 2023 04:15 AM [facility] C-REACTIVE PROTEIN Specimen Type: PLASMA No comment entered. Ordering Provider: WANDA BOWSER Report Released Date/Time: September 23, 2023 04:10 AM Reporting Lab: [facility] [phone] Performing Lab: [facility] [address] C-REACTIVE PROTEIN 81.34 H <5.00 September 23, 2023 04:15 AM [facility] LIPASE Specimen Type: PLASMA No comment entered. Ordering Provider: REVA ROSS Report Released Date/Time: September 23, 2023 12:52 PM Reporting Lab: [facility] [address] Performing Lab: [facility] [address] LIPASE 12 <60 September 23, 2023 04:15 AM [facility] CBC Specimen Type: BLOOD No comment entered. Ordering Provider: WANDA BOWSER Report Released Date/Time: September 23, 2023 04:10 AM Reporting Lab: [facility] [address] Performing Lab: [facility] [address] WBC 12.24 H 4.0-11.0 RBC 3.93 L 4.6-6.2 HGB 13.9 13.5-17.9 HCT 39.8 L 41-54 MCV 101.3 H 80-100 MCH 35.4 H 27-33 MCHC 34.9 32.0-37.5 PLT 236 150-400 MPV 9.3 7.4-10.4 RDW 12.0 11.5-14.5 September 23, 2023 04:15 AM [facility] COMPREHENSIVE METABOLIC PANEL+MG Specimen Type: PLASMA No comment entered. Ordering Provider: WANAD BOWSER Report Released Date/Time: September 23, 2023 04:10 AM Reporting Lab: [facility] [address] Performing Lab: [facility] [address] CREATININE 1.1 0.7-1.2 UREA NITROGEN 16 8-26 [...] 74 >60 September 22, 2023 01:33 PM [facility] DRUG SCREEN PANEL,URINE Specimen Type: URINE Comment: Presumptive Positive by screen, results not confirmed. Ordering Provider: RADHA DODD Report Released Date/Time: September 22, 2023 10:59 AM Reporting Lab: [facility] [address] Performing Lab: [facility] [address] BARBITURATES Negative Negative AMPHETAMINES Negative Negative COCAINE Negative Negative BENZODIAZEPINES Negative Negative CANNABINOIDS Negative Negative METHADONE Negative Negative OPIATES POSITIVE H Negative PHENCYCLIDINE Negative Negative ETHANOL,URINE Negative Negative DRUG SCREEN CREAT 290.4 >20.0 OXYCODONE Negative Negative BUPRENORPHINE Negative Negative TRAMADOL Negative Negative FENTANYL Negative Negative September 22, 2023 01:33 PM [facility] URINALYSIS Specimen Type: URINE No comment entered. Ordering Provider: RADHA DODD Report Released Date/Time: September 22, 2023 10:59 AM Reporting Lab: [facility] [address] Performing Lab: [facility] [address] URINE COLOR YELLOW SPECIFIC GRAVITY 1.032 1.003-1.03 [...] NEGATIVE NEGATIVE September 22, 2023 01:33 PM [facility] COVID-19 AND FLU/RSV DIAG PANEL(CEPConcuityID) Specimen Typ e: NASOPHARYNGEAL Comment: FIGS GeneXpert (618) Ordering Provider: RADHA DODD Report Released Date/Time: September 22, 2023 01:26 PM Reporting Lab: [facility] [address] Performing Lab: [facility] [address] COVID-19 (CEPHEID) Not Detected Not Detected INFLUENZA A (PCR) Not Detected Not Detected INFLUENZA B (PCR) Not Detected Not Detected RSV (PCR) Not Detected Not Detected September 22, 2023 10:55 AM [facility] EXTRA BLUE TUBE Specimen Type: PLASMA No comment entered. Ordering Provider: RADHA DODD Report Released Date/Time: September 22, 2023 11:04 AM Reporting Lab: [facility] [address] Performing Lab: [facility] [address] EXTRA BLUE TUBE RECEIVED September 22, 2023 10:55 AM [facility] LIPASE Specimen Type: PLASMA No comment entered. Ordering Provider: RADHA DODD Report Released Date/Time: September 22, 2023 10:59 AM Reporting Lab: [facility] [address] Performing Lab: [facility] [address] LIPASE 27 <60 September 22, 2023 10:55 AM [facility] ETHANOL Specimen Type: PLASMA No comment entered. Ordering Provider: RADHA DODD Report Released Date/Time: September 22, 2023 10:59 AM Reporting Lab: [facility] [address] Performing Lab: [facility] [address] ETHANOL Negative NEGATIVE September 22, 2023 10:55 AM [facility] EXTRA GOLD GEL TUBE Specimen Type: SERUM No comment entered. Ordering Provider: RADHA DODD Report Released Date/Time: September 22, 2023 11:04 AM Reporting Lab: [facility] [address] Performing Lab: [facility] [address] EXTRA GOLD GEL TUBE RECEIVED September 22, 2023 10:55 AM [facility] COMPREHENSIVE METABOLIC PANEL+MG Specimen Type: PLASMA No comment entered. Ordering Provider: RADHA DODD Report Released Date/Time: September 22, 2023 10:59 AM Reporting Lab: [facility] [address] Performing Lab: [facility] [address] CREATININE 1.0 0.7-1.2 UREA NITROGEN 16 8-26 [...] 82 >60 September 22, 2023 10:55 AM [facility] CBC & DIFF Specimen Type: BLOOD Comment: Automated Differential Performed Ordering Provider: RADHA DODD Report Released Date/Time: September 22, 2023 10:59 AM Reporting Lab: [facility] [address] Performing Lab: [facility] [address] WBC 16.53 H 4.0-11.0 RBC 4.55 L [...] PM 97.3 88 131/83 18 90 0 [facility] September 23, 2023 03:47 PM 97 94 [facility] September 23, 2023 03:09 PM 103 115/73 [facility] September 23, 2023 03:07 PM 97.4 95 107/72 16 93 0 [facility] September 23, 2023 08:01 AM 97.5 102 119/83 18 94 0 [facility] Social History: Smoking Status (Most current) and Tobacco Use (All prior to encounter date) This section includes the most current, and the historical, smoking and tobacco- related health factors from the [place] facility where the Encounter took place. Current Smoking Status This section includes the most current smoking, or tobacco-related health factor, from the [place] facility where the Encounter took place. Date/Time Current Smoking Status Comment Nigel terrazas Jun 02, 2023 11:00 AM VA-TOBACCO FORMER USER [facility] Tobacco Use History This section includes a history of the smoking, or tobacco-related health factors, that were collected on or before the date of the Encounter. The data comes from the [place] facility where the Encounter took place. Date/Time Smoking Status/Tobacco Use Comment Ramses baldwin Jun 02, 2023 11:00 AM VA-TOBACCO QUIT 5 TO < 15 YRS [facility] May 21, 2022 10:30 AM VA-TOBACCO FORMER USER [facility] May 21, 2022 10:30 AM VA-TOBACCO QUIT 15 YRS OR MORE [facility] Nov 12, 2020 12:00 PM VA-TOBACCO FORMER USER [facility] Nov 12, 2020 12:00 PM VA-TOBACCO QUIT 5 TO < 15 YRS [facility] May 31, 2019 06:22 AM INPT NO TOBACCO USE IN LAST 30 D AYS [facility] Nov 08, 2017 01:55 PM VA-TOBACCO FORMER USER [facility] Nov 08, 2017 01:55 PM VA-TOBACCO QUIT 1 TO < 5 YRS [facility] May 11, 2017 12:43 PM FORMER TOBACCO USE >1Y <7Y [facility] Aug 04, 2016 10:25 AM FORMER TOBACCO USE >1Y <7Y [facility] Aug 04, 2015 11:31 AM FORMER TOBACCO USE <1Y [facility] Aug 13, 2014 10:50 AM CURRENT TOBACCO USER [facility] October 10, 2013 09:12 AM FORMER TOBACCO USER 7Y OR GREATE R [facility] May 26, 2012 10:14 AM CURRENT TOBACCO USER [facility] Nov 19, 2009 12:07 PM CURRENT TOBACCO USER [facility] Advance Directives: All historical and current Section Date Range: From patient's date of to the date document was created. This section includes ALL of a patient's completed or amended [place] Advance and Rescinded Directives. The entries below indicate that a directive exists for the patient, but an actual copy is not included with this document. The data comes from all [facility]. Date Advance Directives Provider Source May 11, 2006 ADVANCE DIRECTIVE ASH RAZO [facility] Radiology Reports: +/- 30 days of [...] the Encounter. The data comes from all [place] treatment facilities. Date/Time Radiology Report Provider Source September 23, 2023 01:38 PM CHEST 1 VIEW: CALVIN JAIN [id number] [id number] Exm Date: SEPTEMBER 23, 2023@13:38 Req Phys: REVA ROSS Pat Loc: 309-23-2023@14:51 Img Loc: MAIN X-RAY Service: [place] [address] (Case [id number] COMPLETE) CHEST 1 VIEW (RAD Detailed) CPT:69408 Proc Modifiers : PORTABLE EXAM Reason for Study: see below Clinical History: [place] IS NOT under investigation for COVID-19 or is COVID-19 negative SIRS criteria, no overt sx, please r/o any opacities Responsible provider name and phone number to notify for critical findings if other than user placing the order and pager listed below: User placing orders pager: [phone] LAST CREATININE 1.1 (09/23/23) Report Status: Verified Date Reported: SEPTEMBER 23, 2023 Date Verified: SEPTEMBER 23, 2023 Merchandise Director E-Sig:/ES/JANETH OROZCO DO Report: EXAMINATION: CHEST 1 VIEW Reason for Study: see below IS NOT under investigation for COVID-19 or is COVID-19 negative SIRS criteria, no overt sx, please r/o any opacities Responsible provider name and phone number to notify for critical findings if other than user placing the order and pager listed below: User placing orders pager: [phone] LAST CREATININE 1.1 (09/23/23) see below TECHNIQUE: [...] Primary Interpreting Staff: JANETH OROZCO DO, RADIOLOGIST (Merchandise Director) /JANETH RASHEED [facility]
--- OUTSIDE RECORDS SUMMARY | 2023-09-23 17:11 | XMS_ITS ---
DAILY HOSPITALIZATION DATA [facility] Encounter Summary Created on: September 23, 2023 SUSYJEANIN PIOTR : 1955 Sex: Male Author Name [employer] Organization [employer] Address [address] [place] [address] Support Name Relationship Address Phone MARIBELL VITO Next of Kin [id number] [address] MARIBELL, VITO Emergency Contact [address] [place] [address] Insurance Providers: All historical and [...] Hurt [facility] (WNR) MEDICARE ADVANTAGE [facility] (WNR) May 16, 2023 [id number] JEAN JAIN IN PATIENT Selected Encounter This section includes the information on record at [place] for the Encounter. Date/Time Encounter Type Encounter Description Reason Pro vider Source September 23, 2023 05:00 AM Inpatient Visit DAILY HOSPITALIZATION DATA E Encounter Template Text not used by [place] Plan of Treatment: Future Appointments (+ 6 months) and Future Tests (+/- 45 days) The Plan of Treatment section includes future care activities for the patient from all [place] treatmentfacilities. This section includes future appointments and future orders which are active, pending or scheduled. Future Appointments This section includes appointments that were scheduled to occur 6 months from the date of the Encounter, up to a maximum of 20 appointments. The data comes from all [place] treatment facilities. Appointment Date/Time Appointment Type Appointme nt Facility Name September 27, 2023 10:30 AM AMBULATORY - PSYCHIATRY [facility] Nov 10, 2023 07:15 AM AMBULATORY - MEDICINE [facility] Nov 10, 2023 07:30 AM AMBULATORY - MEDICINE [facility] Jan 02, 2024 09:30 AM AMBULATORY MEDICINE [facility] Jan 02, 2024 10:30 AM AMBULATORY MEDICINE [facility] Active, Pending, and Scheduled Orders This section includes a listing of several types of active, pending, and scheduled orders, including clinic medications orders, diagnostic test orders, procedure orders and consult orders; where the start date of the order is 45 days before the date of the Encounter or 45 days after the date of theEncounter. The data comes from all [facility]. Test Date/Time Test Type Test Details Facility Name Sep 08, 2023 12:00 AM Laboratory - Chemistry Order COMPREHENSIVE METABOLIC PANEL+MG PLASMA SP ONCE [facility] Sep 08, 2023 12:00 AM Laboratory - Chemistry Order CBC BLOOD SP ONCE [facility] September 22, 2023 01:58 PM Consult Order [facility] RESIDENTIAL REHABILITATION TREATMENT [facility] Bottle Tester's Choice [facility] September 23, 2023 [...] - Microbiology Order CULTURE & SUSCEPTIBILITY BLOOD [facility] September 24, 2023 05:30 AM Laboratory - Chemistry Order CBC & DIFF BLOOD LC ONCE [facility] September 24, 2023 05:30 AM Laboratory - Chemistry Order D-DIMER PLASMA LC ONCE [facility] September 24, 2023 05:30 AM Laboratory - Chemistry Order COMPREHENSIVE METABOLIC PANEL+MG PLASMA LC [facility] September 24, 2023 05:30 AM Laboratory - Chemistry Order LACTIC ACID PLASMA UNITS WC ONCE [facility] Lab Results: +/- 30 days of the encounter This section includes the Chemistry and Hematology Lab Results on record with [place] for the patient. Radiology Reports and Pathology [...] September 23, 2023 02:49 PM Reporting Lab: [facility] [id number] Performing Lab: [facility] [id number] EXTRA MINT TUBE RECEIVED September 23, 2023 04:15 AM [facility] PROCALCITONIN Specimen Type: PLASMA No comment entered. Ordering Provider: WANDA BOWSER Report Released Date/Time: September 23, 2023 04:10 AM Reporting Lab: [facility] [id number] Performing Lab: [facility] [address] PROCALCITONIN 0.11 H <0.09 September 23, 2023 04:15 AM [facility] LIPASE Specimen Type: PLASMA No comment entered. Ordering Provider: REVA ROSS Report Released Date/Time: September 23, 2023 12:52 PM Reporting Lab: [facility] [id number] Performing Lab: [facility] [address] LIPASE 12 <60 September 23, 2023 04:15 AM [facility] C-REACTIVE PROTEIN Specimen Type: PLASMA No comment entered. Ordering Provider: WANDA BOWSER Report Released Date/Time: September 23, 2023 04:10 AM Reporting Lab: [facility] [phone] Performing Lab: [facility] [address] C-REACTIVE PROTEIN 81.34 H <5.00 September 23, 2023 04:15 AM [facility] CBC Specimen Type: BLOOD No comment entered. Ordering Provider: WANDA BOWSER Report Released Date/Time: September 23, 2023 04:10 AM Reporting Lab: [facility] [phone] Performing Lab: [facility] [address] WBC 12.24 H 4.0-11.0 RBC 3.93 L [...] September 23, 2023 04:10 AM Reporting Lab: [facility] [address] Performing Lab: [facility] [address] CREATININE 1.1 0.7-1.2 UREA NITROGEN 16 8-26 [...] September 22, 2023 10:59 AM Reporting Lab: [facility] [phone] Performing Lab: [facility] [address] BARBITURATES Negative Negative AMPHETAMINES Negative Negative COCAINE [...] September 22, 2023 10:59 AM Reporting Lab: [facility] [phone] Performing Lab: [facility] [address] URINE COLOR YELLOW SPECIFIC GRAVITY 1.032 1.003-1.03 [...] [facility] COVID-19 AND FLU/RSV DIAG PANEL(CEPHEID) Specimen Typ e: NASOPHARYNGEAL Comment: [employer] GeneXpert (618) Ordering Provider: RADHA DODD Report Released Date/Time: September 22, 2023 01:26 PM Reporting Lab: [facility] [address] Performing Lab: [facility] [address] COVID-19 (CEPHEID) Not Detected Not Detected INFLUENZA A (PCR) Not Detected Not Detected INFLUENZA B (PCR) Not Detected Not Detected RSV (PCR) Not Detected Not Detected September 22, 2023 10:55 AM [facility] EXTRA BLUE TUBE Specimen Type: PLASMA No comment entered. Ordering Provider: RADHA DODD Report Released Date/Time: September 22, 2023 11:04 AM Reporting Lab: [facility] [address] Performing Lab: [facility] [address] EXTRA BLUE TUBE RECEIVED September 22, 2023 10:55 AM [facility] LIPASE Specimen Type: PLASMA No comment entered. Ordering Provider: RADHA DODD Report Released Date/Time: September 22, 2023 10:59 AM Reporting Lab: [facility] [address] Performing Lab: [facility] [address] LIPASE 27 <60 September 22, 2023 10:55 AM [facility] EXTRA GOLD GEL TUBE Specimen Type: SERUM No comment entered. Ordering Provider: RADHA DODD Report Released Date/Time: September 22, 2023 11:04 AM Reporting Lab: [facility] [phone] Performing Lab: [facility] [address] EXTRA GOLD GEL TUBE RECEIVED September 22, 2023 10:55 AM [facility] ETHANOL Specimen Type: PLASMA No comment entered. Ordering Provider: RADHA DODD Report Released Date/Time: September 22, 2023 10:59 AM Reporting Lab: [facility] [id number] Performing Lab: [facility] [address] ETHANOL Negative NEGATIVE September 22, 2023 10:55 AM [facility] CBC & DIFF Specimen Type: BLOOD Comment: Automated Differential Performed Ordering Provider: RADHA DODD Report Released Date/Time: September 22, 2023 10:59 AM Reporting Lab: [facility] [address] Performing Lab: [facility] [address] WBC 16.53 H 4.0-11.0 RBC 4.55 L [...] H 0-0.1 September 22, 2023 10:55 AM [facility] COMPREHENSIVE METABOLIC PANEL+MG Specimen Type: PLASMA No comment entered. Ordering Provider: RADHA DODD Report Released Date/Time: September 22, 2023 10:59 AM Reporting Lab: [facility] [address] Performing Lab: [facility] [address] CREATININE 1.0 0.7-1.2 UREA NITROGEN 16 8-26 GLUCOSE 120 H 70-100 SODIUM 136 136-145 POTASSIUM 3.9 3.5-5.1 CHLORIDE 93 L 98-107 CO2 23 22-29 CALCIUM 10.3 H 8.4-10.2 PROTEIN,TOTAL 7.5 6.0-8.3 ALBUMIN 4.2 3.5-5.2 BILIRUBIN, TOTAL 1.0 0.2-1.2 MAGNESIUM 1.5 L 1.6-2.6 ANION GAP 20 H 5-15 ALKALINE PHOSPHATASE 152 H 40-150 ALT/SGPT 54 <55 AST/SGOT 51 H <34 .CREAT EGFR(CKD-EPI) 82 >60 Vital Signs: All taken on the encounter date This section contains inpatient and outpatient Vital Signs collected on the date of the Encounter. Date/Time Temperature Pulse Blood Pressure Respiratory Rate SP02 Pain Height Weight Body Mass Index Source September 23, 2023 04:07 PM 97.3 88 131/83 18 90 0 [facility] September 23, 2023 03:47 PM 97 94 [facility] September 23, 2023 03:09 PM 103 115/73 [facility] September 23, 2023 03:07 PM 97.4 95 107/72 16 93 0 [facility] September 23, 2023 08:01 AM 97.5 102 119/83 18 94 0 [facility] Social History: Smoking Status (Most current) and Tobacco Use (All prior to encounter date) This section includes the most current, and the historical, smoking and tobacco- related health factors from the [place] facility where the Encounter took place. Current Smoking Status This section includes the most current smoking, or tobacco-related health factor, from the [place] facility where the Encounter took place. Date/Time Current Smoking Status Comment Nigel terrazas Jun 02, 2023 11:00 AM VA-TOBACCO FORMER USER [facility] Tobacco Use History This section includes a history of the smoking, or tobacco-related health factors, that were collected on or before the date of the Encounter. The data comes from the [place] facility where the Encounter took place. Date/Time [...] ALL of a patient's completed or amended [place] Advance and Rescinded Directives. The entries below [...] the Encounter. The data comes from all [place] treatment facilities. Date/Time Radiology Report Provider Source September 23, 2023 01:38 PM CHEST 1 VIEW: CALVIN JAIN [id number] -1955 M Exm Date: SEPTEMBER 23, 2023@13:38 Req Phys: REVA ROSS Pat Loc: 309-23-2023@14:51 Img Loc: MAIN X-RAY Service: [place] [address] (Case [id number] COMPLETE) CHEST 1 VIEW (RAD Detailed) CPT:13979 Proc Modifiers : PORTABLE EXAM Reason for Study: see below Clinical History: IS NOT under investigation for COVID-19 or is COVID-19 negative SIRS criteria, no overt sx, please r/o any opacities Responsible provider name and phone number to notify for critical findings if other than user placing the order and pager listed below: User placing orders pager: [phone] LAST CREATININE 1.1 (09/23/23) Report Status: Verified Date Reported: SEPTEMBER 23, 2023 Date Verified: SEPTEMBER 23, 2023 Audit Spec E-Sig:/ES/JANETH OROZCO DO Report: EXAMINATION: CHEST 1 VIEW Reason for Study: see below IS NOT under investigation for COVID-19 or is COVID-19 negative SIRS criteria, no overt sx, please r/o any opacities Responsible provider name and phone number to notify for critical findings if other than user placing the order and pager listed below: User placing orders pager: [phone] LAST CREATININE 1.1 (09/23/23) see below TECHNIQUE: [...] Primary Interpreting Staff: JANETH OROZCO DO, RADIOLOGIST (Audit Spec) /JANETH RASHEED [facility]
--- OUTSIDE RECORDS SUMMARY | 2023-09-23 17:11 | XMS_ITS ---
DAILY HOSPITALIZATION DATA [facility] Encounter Summary Created on: September 23, 2023 SUSYJEANIN PIOTR : [id number] Sex: Male Author Name [employer] Organization [employer] Address [address] [place] [address] Support Name Relationship Address Phone MARIBELL VITO Next of Kin [id number] [place] [address] MARIBELL, VITO Emergency Contact [address] [place] [address] Insurance Providers: All historical and [...] Hurt [facility] (WNR) MEDICARE ADVANTAGE [facility] (WNR) May 16, 2023 [id number] JEAN JAIN IN PATIENT Selected Encounter This section includes the information on record at MI for the Encounter. Date/Time Encounter Type Encounter Description Reason Pro vider Source September 23, 2023 05:08 AM Inpatient Visit DAILY HOSPITALIZATION DATA E Encounter Template Text not used by MI Plan of Treatment: Future Appointments (+ 6 months) and Future Tests (+/- 45 days) The Plan of Treatment section includes future care activities for the patient from all [place] treatmentfacilities. This section includes future appointments and future orders which are active, pending or scheduled. Future Appointments This section includes appointments that were scheduled to occur 6 months from the date of the Encounter, up to a maximum of 20 appointments. The data comes from all [place] treatment facilities. Appointment Date/Time Appointment Type Appointme nt Facility Name September 27, 2023 10:30 AM AMBULATORY - PSYCHIATRY [facility] Nov 10, 2023 07:15 AM AMBULATORY - MEDICINE [facility] Nov 10, 2023 07:30 AM AMBULATORY - MEDICINE [facility] Jan 02, 2024 09:30 AM AMBULATORY MEDICINE [facility] Jan 02, 2024 10:30 AM AMBULATORY MEDICINE [facility] Active, Pending, and Scheduled Orders This section includes a listing of several types of active, pending, and scheduled orders, including clinic medications orders, diagnostic test orders, procedure orders and consult orders; where the start date of the order is 45 days before the date of the Encounter or 45 days after the date of theEncounter. The data comes from all [facility]. Test Date/Time Test Type Test Details Facility Name Sep 08, 2023 12:00 AM Laboratory - Chemistry Order COMPREHENSIVE METABOLIC PANEL+MG PLASMA SP ONCE [facility] Sep 08, 2023 12:00 AM Laboratory - Chemistry Order CBC BLOOD SP ONCE [facility] September 22, 2023 01:58 PM Consult Order [facility] RESIDENTIAL REHABILITATION TREATMENT [facility] Fundraising Specialist's Choice [facility] September 23, 2023 12:52 PM Laboratory - Microbiology Order CULTURE & SUSCEPTIBILITY SPUTUM WC ONCE [facility] September 23, 2023 12:52 PM Laboratory - Microbiology Order GRAM STAIN SPUTUM WC ONCE [facility] September 23, 2023 01:00 PM Laboratory - Microbiology Order CULTURE & SUSCEPTIBILITY BLOOD WC [facility] September 23, 2023 01:20 PM Laboratory - Microbiology Order CULTURE & SUSCEPTIBILITY BLOOD WC [facility] September 24, 2023 05:30 AM Laboratory - Chemistry Order CBC & DIFF BLOOD LC ONCE [facility] September 24, 2023 05:30 AM Laboratory - Chemistry Order COMPREHENSIVE METABOLIC PANEL+MG PLASMA LC [facility] September 24, 2023 05:30 AM Laboratory - Chemistry Order D-DIMER PLASMA LC ONCE [facility] September 24, 2023 05:30 AM Laboratory - Chemistry Order LACTIC ACID PLASMA UNITS WC ONCE [facility] Lab Results: +/- 30 days of the encounter This section includes the Chemistry and Hematology Lab Results on record with MI for the patient. Radiology Reports and Pathology Reports are provided separately, in subsequent sections. Lab Results This section contains the Chemistry/Hematology Results that were resulted 30 days before or 30 daysafter the date of the Encounter. Date/Time Source Result Type Result - Unit Interpretation Reference Range Comment September 23, 2023 02:30 PM [facility] EXTRA MINT TUBE Specimen Type: PLASMA No comment entered. Ordering Provider: REVA ROSS Report Released Date/Time: September 23, 2023 02:49 PM Reporting Lab: [facility] [id number] Performing Lab: [facility] [phone] EXTRA MINT TUBE RECEIVED September 23, 2023 04:15 AM [facility] PROCALCITONIN Specimen Type: PLASMA No comment entered. Ordering Provider: WANDA BOWSER Report Released Date/Time: September 23, 2023 04:10 AM Reporting Lab: [facility] [id number] Performing Lab: [facility] [phone] PROCALCITONIN 0.11 H <0.09 September 23, 2023 04:15 AM [facility] C-REACTIVE PROTEIN Specimen Type: PLASMA No comment entered. Ordering Provider: WANDA BOWSER Report Released Date/Time: September 23, 2023 04:10 AM Reporting Lab: [facility] [phone] Performing Lab: [facility] [phone] C-REACTIVE PROTEIN 81.34 H <5.00 September 23, 2023 04:15 AM [facility] LIPASE Specimen Type: PLASMA No comment entered. Ordering Provider: REVA ROSS Report Released Date/Time: September 23, 2023 12:52 PM Reporting Lab: [facility] [id number] Performing Lab: [facility] [id number] LIPASE 12 <60 September 23, 2023 04:15 AM [facility] CBC Specimen Type: BLOOD No comment entered. Ordering Provider: WANDA BOWSER Report Released Date/Time: September 23, 2023 04:10 AM Reporting Lab: [facility] [phone] Performing Lab: [facility] [phone] WBC 12.24 H 4.0-11.0 RBC 3.93 L 4.6-6.2 HGB 13.9 13.5-17.9 HCT 39.8 L 41-54 MCV 101.3 H 80-100 MCH 35.4 H 27-33 MCHC 34.9 32.0-37.5 PLT 236 150-400 MPV 9.3 7.4-10.4 RDW 12.0 11.5-14.5 September 23, 2023 04:15 AM [facility] COMPREHENSIVE METABOLIC PANEL+MG Specimen Type: PLASMA No comment entered. Ordering Provider: WANDA BOWSER Report Released Date/Time: September 23, 2023 04:10 AM Reporting Lab: [facility] [phone] Performing Lab: [facility] [phone] CREATININE 1.1 0.7-1.2 UREA NITROGEN 16 8-26 [...] 74 >60 September 22, 2023 01:33 PM [facility] DRUG SCREEN PANEL,URINE Specimen Type: URINE Comment: Presumptive Positive by screen, results not confirmed. Ordering Provider: RADHA DODD Report Released Date/Time: September 22, 2023 10:59 AM Reporting Lab: [facility] [phone] Performing Lab: [facility] [phone] BARBITURATES Negative Negative AMPHETAMINES Negative Negative COCAINE Negative Negative BENZODIAZEPINES Negative Negative CANNABINOIDS Negative Negative METHADONE Negative Negative OPIATES POSITIVE H Negative PHENCYCLIDINE Negative Negative ETHANOL,URINE Negative Negative DRUG SCREEN CREAT 290.4 >20.0 OXYCODONE Negative Negative BUPRENORPHINE Negative Negative TRAMADOL Negative Negative FENTANYL Negative Negative September 22, 2023 01:33 PM [facility] COVID-19 AND FLU/RSV DIAG PANEL(CEPHEID) Specimen Typ e: NASOPHARYNGEAL Comment: Cepheid GeneXpert (618) Ordering Provider: RADHA DODD Report Released Date/Time: September 22, 2023 01:26 PM Reporting Lab: [facility] [phone] Performing Lab: [facility] [phone] COVID-19 (CEPHEID) Not Detected Not Detected INFLUENZA A (PCR) Not Detected Not Detected INFLUENZA B (PCR) Not Detected Not Detected RSV (PCR) Not Detected Not Detected September 22, 2023 01:33 PM [facility] URINALYSIS Specimen Type: URINE No comment entered. Ordering Provider: RADHA DODD Report Released Date/Time: September 22, 2023 10:59 AM Reporting Lab: [facility] [phone] Performing Lab: [facility] [phone] URINE COLOR YELLOW SPECIFIC GRAVITY 1.032 1.003-1.03 [...] LEUKOCYTE ESTERASE NEGATIVE NEGATIVE September 22, 2023 10:55 AM [facility] EXTRA BLUE TUBE Specimen Type: PLASMA No comment entered. Ordering Provider: RADHA DODD Report Released Date/Time: September 22, 2023 11:04 AM Reporting Lab: [facility] [phone] Performing Lab: [facility] [phone] EXTRA BLUE TUBE RECEIVED September 22, 2023 10:55 AM [facility] LIPASE Specimen Type: PLASMA No comment entered. Ordering Provider: RADHA DODD Report Released Date/Time: September 22, 2023 10:59 AM Reporting Lab: [facility] [phone] Performing Lab: [facility] [address] LIPASE 27 <60 September 22, 2023 10:55 AM [facility] ETHANOL Specimen Type: PLASMA No comment entered. Ordering Provider: RADHA DODD Report Released Date/Time: September 22, 2023 10:59 AM Reporting Lab: [facility] [phone] Performing Lab: [facility] [phone] ETHANOL Negative NEGATIVE September 22, 2023 10:55 AM [facility] EXTRA GOLD GEL TUBE Specimen Type: SERUM No comment entered. Ordering Provider: RADHA DODD Report Released Date/Time: September 22, 2023 11:04 AM Reporting Lab: [facility] [phone] Performing Lab: [facility] [phone] EXTRA GOLD GEL TUBE RECEIVED September 22, 2023 10:55 AM [facility] COMPREHENSIVE METABOLIC PANEL+MG Specimen Type: PLASMA No comment entered. Ordering Provider: RADHA DODD Report Released Date/Time: September 22, 2023 10:59 AM Reporting Lab: [facility] [phone] Performing Lab: [facility] [phone] CREATININE 1.0 0.7-1.2 UREA NITROGEN 16 8-26 [...] 82 >60 September 22, 2023 10:55 AM [facility] CBC & DIFF Specimen Type: BLOOD Comment: Automated Differential Performed Ordering Provider: RADHA DODD Report Released Date/Time: September 22, 2023 10:59 AM Reporting Lab: [facility] [phone] Performing Lab: [facility] [phone] WBC 16.53 H 4.0-11.0 RBC 4.55 L [...] PM 97.3 88 131/83 18 90 0 [facility] September 23, 2023 03:47 PM 97 94 [facility] September 23, 2023 03:09 PM 103 115/73 [facility] September 23, 2023 03:07 PM 97.4 95 107/72 16 93 0 [facility] September 23, 2023 08:01 AM 97.5 102 119/83 18 94 0 [facility] Social History: Smoking Status (Most current) and Tobacco Use (All prior to encounter date) This section includes the most current, and the historical, smoking and tobacco- related health factors from the [place] facility where the Encounter took place. Current Smoking Status This section includes the most current smoking, or tobacco-related health factor, from the [place] facility where the Encounter took place. Date/Time Current Smoking Status Comment Nigel terrazas Jun 02, 2023 11:00 AM VA-TOBACCO FORMER USER [facility] Tobacco Use History This section includes a history of the smoking, or tobacco-related health factors, that were collected on or before the date of the Encounter. The data comes from the [place] facility where the Encounter took place. Date/Time Smoking Status/Tobacco Use Comment Ramses baldwin Jun 02, 2023 11:00 AM VA-TOBACCO QUIT 5 TO < 15 YRS [facility] May 21, 2022 10:30 AM VA-TOBACCO FORMER USER [facility] May 21, 2022 10:30 AM VA-TOBACCO QUIT 15 YRS OR MORE [facility] Nov 12, 2020 12:00 PM VA-TOBACCO FORMER USER [facility] Nov 12, 2020 12:00 PM VA-TOBACCO QUIT 5 TO < 15 YRS [facility] May 31, 2019 06:22 AM INPT NO TOBACCO USE IN LAST 30 D AYS [facility] Nov 08, 2017 01:55 PM VA-TOBACCO FORMER USER [facility] Nov 08, 2017 01:55 PM VA-TOBACCO QUIT 1 TO < 5 YRS [facility] May 11, 2017 12:43 PM FORMER TOBACCO USE >1Y <7Y [facility] Aug 04, 2016 10:25 AM FORMER TOBACCO USE >1Y <7Y [facility] Aug 04, 2015 11:31 AM FORMER TOBACCO USE <1Y [facility] Aug 13, 2014 10:50 AM CURRENT TOBACCO USER [facility] October 10, 2013 09:12 AM FORMER TOBACCO USER 7Y OR GREATE R [facility] May 26, 2012 10:14 AM CURRENT TOBACCO USER [facility] Nov 19, 2009 12:07 PM CURRENT TOBACCO USER [facility] Advance Directives: All historical and current Section Date Range: From patient's date of to the date document was created. This section includes ALL of a patient's completed or amended [place] Advance and Rescinded Directives. The entries below indicate that a directive exists for the patient, but an actual copy is not included with this document. The data comes from all [facility]. Date Advance Directives Provider Source May 11, 2006 ADVANCE DIRECTIVE ASH RAZO [facility] Radiology Reports: +/- 30 days of [...] the Encounter. The data comes from all [place] treatment facilities. Date/Time Radiology Report Provider Source September 23, 2023 01:38 PM CHEST 1 VIEW: CALVIN JAIN [id number] -1955 M Exm Date: SEPTEMBER 23, 2023@13:38 Req Phys: REVA ROSS Pat Loc: 309-23-2023@14:51 Img Loc: MAIN X-RAY Service: [place] [address] (Case [id number] COMPLETE) CHEST 1 VIEW (RAD Detailed) CPT:74883 Proc Modifiers : PORTABLE EXAM Reason for Study: see below Clinical History: IS NOT under investigation for COVID-19 or is COVID-19 negative SIRS criteria, no overt sx, please r/o any opacities Responsible provider name and phone number to notify for critical findings if other than user placing the order and pager listed below: User placing orders pager: [phone] LAST CREATININE 1.1 (09/23/23) Report Status: Verified Date Reported: SEPTEMBER 23, 2023 Date Verified: SEPTEMBER 23, 2023 Worm Raiser E-Sig:/ES/JANETH OROZCO DO Report: EXAMINATION: CHEST 1 VIEW Reason for Study: see below IS NOT under investigation for COVID-19 or is COVID-19 negative SIRS criteria, no overt sx, please r/o any opacities Responsible provider name and phone number to notify for critical findings if other than user placing the order and pager listed below: User placing orders pager: [phone] LAST CREATININE 1.1 (09/23/23) see below TECHNIQUE: [...] Primary Interpreting Staff: JANETH OROZCO DO, RADIOLOGIST (Worm Raiser) /JANETH RASHEED [facility]
--- OUTSIDE RECORDS SUMMARY | 2023-09-23 17:13 | XMS_ITS | Encounter Summary ---
Author Name Department of Vetera Affairs Organization [facility] of [employer] Affairs Address [address] [place] [address] Support Name Relationship Address Phone MARIBELLDIANEVITO Next of Kin [address] [place] [address] MARIBELL, VITO Emergency Contact [phone] [place] [address] Insurance Providers: All historical and [...] Hurt's Name Patient's Relationship to Policy Hurt [facility] (WNR) MEDICARE ADVANTAGE [facility] (WNR) May 16, 2023 [id number] JEAN JAIN IN PATIENT Selected Encounter This section includes the information on record at [place] for the Encounter. Date/Time Encounter Type Encounter Description Reason Pro vider Source September 23, 2023 12:18 PM Outpatient Encounter TELEPHONE - RRTP IHE Encounter Template Text not used by [place] Plan of Treatment: Future Appointments (+ 6 months) and Future Tests (+/- 45 days) The Plan of Treatment section includes future care activities for the patient from all [place] treatmentfacilities. This section includes future appointments and future orders which are active, pending or scheduled. Future Appointments This section includes appointments that were scheduled to occur 6 months from the date of the Encounter, up to a maximum of 20 appointments. The data comes from all [place] treatment facilities. Appointment Date/Time Appointment Type Appointme nt Facility Name September 27, 2023 10:30 AM AMBULATORY - PSYCHIATRY [facility] Nov 10, 2023 07:15 AM AMBULATORY - MEDICINE [facility] Nov 10, 2023 07:30 AM AMBULATORY MEDICINE [facility] Jan 02, 2024 09:30 AM AMBULATORY MEDICINE [facility] Jan 02, 2024 10:30 AM AMBULATORY MEDICINE [facility] Active, Pending, and Scheduled Orders This [...] Order COMPREHENSIVE METABOLIC PANEL+MG PLASMA SP ONCE [facility] Sep 08, 2023 12:00 AM Laboratory - Chemistry Order CBC BLOOD SP ONCE [facility] September 22, 2023 01:58 PM Consult Order [facility] RESIDENTIAL REHABILITATION TREATMENT [facility] Cons Chip Bin Operator's Choice [facility] September 23, 2023 12:52 PM Laboratory - Microbiology Order GRAM STAIN SPUTUM WC ONCE [facility] September 23, 2023 12:52 PM Laboratory - Microbiology Order CULTURE & SUSCEPTIBILITY SPUTUM WC ONCE [facility] September 23, 2023 01:00 PM Laboratory - Microbiology Order CULTURE & SUSCEPTIBILITY BLOOD [facility] September 23, 2023 01:20 PM Laboratory - Microbiology Order CULTURE & SUSCEPTIBILITY BLOOD WC [facility] September 24, 2023 05:30 AM Laboratory - Chemistry Order CBC & DIFF BLOOD LC ONCE [facility] September 24, 2023 05:30 AM Laboratory - Chemistry Order COMPREHENSIVE METABOLIC PANEL+MG PLASMA LC [facility] September 24, 2023 05:30 AM Laboratory - Chemistry Order D-DIMER PLASMA LC ONCE [facility] September 24, 2023 05:30 AM Laboratory - Chemistry Order LACTIC ACID PLASMA UNITS WC ONCE [facility] Lab Results: +/- 30 days of the encounter This section includes the Chemistry and Hematology Lab Results on record with [place] for the patient. Radiology Reports and Pathology Reports are provided separately, in subsequent sections. Lab Results This section contains the Chemistry/Hematology Results that were resulted 30 days before or 30 daysafter the date of the Encounter. Date/Time Source Result Type Result - Unit Interpretation Reference Range Comment September 23, 2023 02:30 PM [facility] EXTRA MINT TUBE Specimen Type: PLASMA No comment entered. Ordering Provider: REVA ROSS Report Released Date/Time: September 23, 2023 02:49 PM Reporting Lab: [facility] [address] Performing Lab: [facility] [address] EXTRA MINT TUBE RECEIVED September 23, 2023 04:15 AM [facility] PROCALCITONIN Specimen Type: PLASMA No comment entered. Ordering Provider: WANDA BOWSER Report Released Date/Time: September 23, 2023 04:10 AM Reporting Lab: [facility] [address] Performing Lab: [facility] [address] PROCALCITONIN 0.11 H <0.09 September 23, 2023 04:15 AM [facility] C-REACTIVE PROTEIN Specimen Type: PLASMA No comment entered. Ordering Provider: WANDA BOWSER Report Released Date/Time: September 23, 2023 04:10 AM Reporting Lab: [facility] [address] Performing Lab: [facility] [address] C-REACTIVE PROTEIN 81.34 H <5.00 September 23, 2023 04:15 AM [facility] LIPASE Specimen Type: PLASMA No comment entered. Ordering Provider: REVA ROSS Report Released Date/Time: September 23, 2023 12:52 PM Reporting Lab: [facility] [address] Performing Lab: [facility] [address] LIPASE 12 <60 September 23, 2023 04:15 AM [facility] CBC Specimen Type: BLOOD No comment entered. Ordering Provider: WANDA BOWSER Report Released Date/Time: September 23, 2023 04:10 AM Reporting Lab: [facility] [address] Performing Lab: [facility] [address] WBC 12.24 H 4.0-11.0 RBC 3.93 L 4.6-6.2 HGB 13.9 13.5-17.9 HCT 39.8 L 41-54 MCV 101.3 H 80-100 MCH 35.4 H 27-33 MCHC 34.9 32.0-37.5 PLT 236 150-400 MPV 9.3 7.4-10.4 RDW 12.0 11.5-14.5 September 23, 2023 04:15 AM [facility] COMPREHENSIVE METABOLIC PANEL+MG Specimen Type: PLASMA No comment entered. Ordering Provider: WANDA BOWSER Report Released Date/Time: September 23, 2023 04:10 AM Reporting Lab: [facility] [address] Performing Lab: [facility] [address] CREATININE 1.1 0.7-1.2 UREA NITROGEN 16 8-26 [...] 74 >60 September 22, 2023 01:33 PM [facility] DRUG SCREEN PANEL,URINE Specimen Type: URINE Comment: Presumptive Positive by screen, results not confirmed. Ordering Provider: RADHA DODD Report Released Date/Time: September 22, 2023 10:59 AM Reporting Lab: [facility] [address] Performing Lab: [facility] [address] BARBITURATES Negative Negative AMPHETAMINES Negative Negative COCAINE Negative Negative BENZODIAZEPINES Negative Negative CANNABINOIDS Negative Negative METHADONE Negative Negative OPIATES POSITIVE H Negative PHENCYCLIDINE Negative Negative ETHANOL,URINE Negative Negative DRUG SCREEN CREAT 290.4 >20.0 OXYCODONE Negative Negative BUPRENORPHINE Negative Negative TRAMADOL Negative Negative FENTANYL Negative Negative September 22, 2023 01:33 PM [facility] URINALYSIS Specimen Type: URINE No comment entered. Ordering Provider: RADHA DODD Report Released Date/Time: September 22, 2023 10:59 AM Reporting Lab: [facility] [address] Performing Lab: [facility] [address] URINE COLOR YELLOW SPECIFIC GRAVITY 1.032 1.003-1.03 [...] NEGATIVE NEGATIVE September 22, 2023 01:33 PM [facility] COVID-19 AND FLU/RSV DIAG PANEL(CEPTourPalID) Specimen Typ e: NASOPHARYNGEAL Comment: CepConfortVisuelid GeneXpert (618) Ordering Provider: RADHA DODD Report Released Date/Time: September 22, 2023 01:26 PM Reporting Lab: [facility] [address] Performing Lab: [facility] [address] COVID-19 (CEPHEID) Not Detected Not Detected INFLUENZA A (PCR) Not Detected Not Detected INFLUENZA B (PCR) Not Detected Not Detected RSV (PCR) Not Detected Not Detected September 22, 2023 10:55 AM [facility] EXTRA BLUE TUBE Specimen Type: PLASMA No comment entered. Ordering Provider: RADHA DODD Report Released Date/Time: September 22, 2023 11:04 AM Reporting Lab: [facility] [address] Performing Lab: [facility] [address] EXTRA BLUE TUBE RECEIVED September 22, 2023 10:55 AM [facility] LIPASE Specimen Type: PLASMA No comment entered. Ordering Provider: RADHA DODD Report Released Date/Time: September 22, 2023 10:59 AM Reporting Lab: [facility] [address] Performing Lab: [facility] [address] LIPASE 27 <60 September 22, 2023 10:55 AM [facility] ETHANOL Specimen Type: PLASMA No comment entered. Ordering Provider: RADHA DODD Report Released Date/Time: September 22, 2023 10:59 AM Reporting Lab: [facility] [address] Performing Lab: [facility] [address] ETHANOL Negative NEGATIVE September 22, 2023 10:55 AM [facility] EXTRA GOLD GEL TUBE Specimen Type: SERUM No comment entered. Ordering Provider: RAHDA DODD Report Released Date/Time: September 22, 2023 11:04 AM Reporting Lab: [facility] [address] Performing Lab: [facility] [address] EXTRA GOLD GEL TUBE RECEIVED September 22, 2023 10:55 AM [facility] COMPREHENSIVE METABOLIC PANEL+MG Specimen Type: PLASMA No comment entered. Ordering Provider: RADHA DODD Report Released Date/Time: September 22, 2023 10:59 AM Reporting Lab: [facility] [address] Performing Lab: [facility] [address] CREATININE 1.0 0.7-1.2 UREA NITROGEN 16 8-26 [...] 82 >60 September 22, 2023 10:55 AM [facility] CBC & DIFF Specimen Type: BLOOD Comment: Automated Differential Performed Ordering Provider: RADHA DODD Report Released Date/Time: September 22, 2023 10:59 AM Reporting Lab: [facility] [address] Performing Lab: [facility] [address] WBC 16.53 H 4.0-11.0 RBC 4.55 L [...] 1.3 ABS IMMATURE GRAN 0.21 H 0-0.1 Social History: Smoking Status (Most current) and [...] Date/Time Current Smoking Status Comment Nigel terrazas Nov 25, 2005 10:34 AM CURRENT TOBACCO USER 1/2 ppd. [facility] Advance Directives: All historical and current Section Date Range: From patient's date of to the date document was created. This section includes ALL of a patient's completed or amended [place] Advance and Rescinded Directives. The entries below indicate that a directive exists for the patient, but an actual copy is not included with this document. The data comes from all [facility]. Date Advance Directives Provider Source May 11, 2006 ADVANCE DIRECTIVE ASH RAZO [facility] Radiology Reports: +/- 30 days of [...] 23, 2023 01:38 PM CHEST 1 VIEW: JAINCALVIN [id number] -1955 M Exm Date: SEPTEMBER 23, 2023@13:38 Req Phys: REVA ROSS Loc: 3LS/09-23-2023@14:51 Img Loc: MAIN X-RAY Service: PRIMARY [place] [address] (Case [id number] COMPLETE) CHEST 1 VIEW (RAD Detailed) CPT:56626 Proc Modifiers : PORTABLE EXAM Reason for Study: see below Clinical History: Wake IS NOT under investigation for COVID-19 or is COVID-19 negative SIRS criteria, no overt sx, please r/o any opacities Responsible provider name and phone number to notify for critical findings if other than user placing the order and pager listed below: User placing orders pager: [phone] LAST CREATININE 1.1 (09/23/23) Report Status: Verified Date Reported: SEPTEMBER 23, 2023 Date Verified: SEPTEMBER 23, 2023 Manager Ob E-Sig:/ES/JANETH OROZCO DO Report: EXAMINATION: CHEST 1 VIEW Reason for Study: see below IS NOT under investigation for COVID-19 or is COVID-19 negative SIRS criteria, no overt sx, please r/o any opacities Responsible provider name and phone number to notify for critical findings if other than user placing the order and pager listed below: User placing orders pager: [phone] LAST CREATININE 1.1 (09/23/23) see below TECHNIQUE: [...] Primary Interpreting Staff: JANETH OROZCO DO, RADIOLOGIST (Manager Ob) /JANETH RASHEED [facility] Encounter Notes: All associated encounter notes This section contains the clinical notes associated to the Encounter. Date/Time Encounter Note(s) Provider Source September 23, 2023 12:18 PM MENTAL HEALTH TEAM NOTE: LOCAL TITLE: MH RRTP NOTE STANDARD TITLE: MENTAL HEALTH TEAM NOTE DATE OF NOTE: SEPTEMBER 23, 2023@12:18 ENTRY DATE: SEPTEMBER 23, 2023@12:19:03 AUTHOR: JAX POOL COSIGNER: URGENCY: STATUS: COMPLETED Hosted Services Analyst contacted Wake at [phone] to schedule a screen for the RRTP program. Screen is scheduled for Tuesday 09/26 at 10:30am. Wake is currently on a medicine unit, told him if he goes to we will call him there at . /ubaldo/ JAX POOL SUPPLY TEACHER Signed: 09/23/2023 12:19 Receipt Acknowledged By: 09/23/2023 13:05 /ubaldo/ HUNTER RODRIGUEZ, RN REGISTERED NURSE JAX POOL [facility]
--- OUTSIDE RECORDS SUMMARY | 2023-09-23 17:13 | XMS_ITS ---
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 Date/Time Encounter Type Encounter Description Reason Pro vider Source September 23, 2023 11:44 AM Inpatient Visit DAILY HOSPITALIZATION DATA E [...] 27, 2023 10:30 AM AMBULATORY - PSYCHIATRY [facility] Nov 10, 2023 07:15 AM AMBULATORY - MEDICINE [facility] Nov 10, 2023 07:30 AM AMBULATORY - MEDICINE [facility] Jan 02, 2024 09:30 AM AMBULATORY MEDICINE [facility] Jan 02, 2024 10:30 AM AMBULATORY MEDICINE [facility] Active, Pending, and Scheduled Orders This section includes a listing of several types of active, pending, and scheduled orders, including clinic medications orders, diagnostic test orders, procedure orders and consult orders; where the start date of the order is 45 days before the date of the Encounter or 45 days after the date of theEncounter. The data comes from all [facility]. Test Date/Time Test Type Test Details Facility Name Sep 08, 2023 12:00 AM Laboratory - Chemistry Order COMPREHENSIVE METABOLIC PANEL+MG PLASMA SP ONCE [facility] Sep 08, 2023 12:00 AM Laboratory - Chemistry Order CBC BLOOD SP ONCE [facility] September 22, 2023 01:58 PM Consult Order [facility] RESIDENTIAL REHABILITATION TREATMENT [facility] Head Refrigerating Engineer's Choice [facility] September 23, 2023 [...] - Microbiology Order CULTURE & SUSCEPTIBILITY BLOOD [facility] September 24, 2023 05:30 AM Laboratory - Chemistry Order CBC & DIFF BLOOD LC ONCE [facility] September 24, 2023 05:30 AM Laboratory - Chemistry Order D-DIMER PLASMA LC ONCE [facility] September 24, 2023 05:30 AM Laboratory - Chemistry Order LACTIC ACID PLASMA UNITS WC ONCE [facility] September 24, 2023 05:30 AM Laboratory - Chemistry Order COMPREHENSIVE METABOLIC PANEL+MG PLASMA LC [facility] Lab Results: +/- 30 days of the encounter This section includes the Chemistry and Hematology Lab Results on record with [place] for the patient. Radiology Reports and Pathology [...] September 23, 2023 02:49 PM Reporting Lab: [facility] [address] Performing Lab: [facility] [address] EXTRA MINT TUBE RECEIVED September 23, 2023 04:15 AM [facility] PROCALCITONIN Specimen Type: PLASMA No comment entered. Ordering Provider: WANDA BOWSER Report Released Date/Time: September 23, 2023 04:10 AM Reporting Lab: [facility] [address] Performing Lab: [facility] [address] PROCALCITONIN 0.11 H <0.09 September 23, 2023 04:15 AM [facility] C-REACTIVE PROTEIN Specimen Type: PLASMA No comment entered. Ordering Provider: WANDA BOWSER Report Released Date/Time: September 23, 2023 04:10 AM Reporting Lab: [facility] [address] Performing Lab: [facility] [address] C-REACTIVE PROTEIN 81.34 H <5.00 September 23, 2023 04:15 AM [facility] LIPASE Specimen Type: PLASMA No comment entered. Ordering Provider: REVA ROSS Report Released Date/Time: September 23, 2023 12:52 PM Reporting Lab: [facility] [address] Performing Lab: [facility] [address] LIPASE 12 <60 September 23, 2023 04:15 AM [facility] CBC Specimen Type: BLOOD No comment entered. Ordering Provider: WANDA BOWSER Report Released Date/Time: September 23, 2023 04:10 AM Reporting Lab: [facility] [address] Performing Lab: [facility] [address] WBC 12.24 H 4.0-11.0 RBC 3.93 L 4.6-6.2 HGB 13.9 13.5-17.9 HCT 39.8 L 41-54 MCV 101.3 H 80-100 MCH 35.4 H 27-33 MCHC 34.9 32.0-37.5 PLT 236 150-400 MPV 9.3 7.4-10.4 RDW 12.0 11.5-14.5 September 23, 2023 04:15 AM [facility] COMPREHENSIVE METABOLIC PANEL+MG Specimen Type: PLASMA No comment entered. Ordering Provider: WANDA BOWSER Report Released Date/Time: September 23, 2023 04:10 AM Reporting Lab: [facility] [address] Performing Lab: [facility] [address] CREATININE 1.1 0.7-1.2 UREA NITROGEN 16 8-26 [...] 74 >60 September 22, 2023 01:33 PM [facility] URINALYSIS Specimen Type: URINE No comment entered. Ordering Provider: RADHA DODD Report Released Date/Time: September 22, 2023 10:59 AM Reporting Lab: [facility] [address] Performing Lab: [facility] [address] URINE COLOR YELLOW SPECIFIC GRAVITY 1.032 1.003-1.03 [...] September 22, 2023 10:59 AM Reporting Lab: [facility] [address] Performing Lab: [facility] [address] BARBITURATES Negative Negative AMPHETAMINES Negative Negative COCAINE Negative Negative BENZODIAZEPINES Negative Negative CANNABINOIDS Negative Negative METHADONE Negative Negative OPIATES POSITIVE H Negative PHENCYCLIDINE Negative Negative ETHANOL,URINE Negative Negative DRUG SCREEN CREAT 290.4 >20.0 OXYCODONE Negative Negative BUPRENORPHINE Negative Negative TRAMADOL Negative Negative FENTANYL Negative Negative September 22, 2023 01:33 PM [facility] COVID-19 AND FLU/RSV DIAG PANEL(CEPThe London Distillery CompanyID) Specimen Typ e: NASOPHARYNGEAL Comment: Leakyid GeneXpert (618) Ordering Provider: RADHA DODD Report Released Date/Time: September 22, 2023 01:26 PM Reporting Lab: [facility] [address] Performing Lab: [facility] [address] COVID-19 (CEPHEID) Not Detected Not Detected INFLUENZA A (PCR) Not Detected Not Detected INFLUENZA B (PCR) Not Detected Not Detected RSV (PCR) Not Detected Not Detected September 22, 2023 10:55 AM [facility] EXTRA BLUE TUBE Specimen Type: PLASMA No comment entered. Ordering Provider: RADHA DODD Report Released Date/Time: September 22, 2023 11:04 AM Reporting Lab: [facility] [address] Performing Lab: [facility] [address] EXTRA BLUE TUBE RECEIVED September 22, 2023 10:55 AM [facility] LIPASE Specimen Type: PLASMA No comment entered. Ordering Provider: RADHA DODD Report Released Date/Time: September 22, 2023 10:59 AM Reporting Lab: [facility] [address] Performing Lab: [facility] [address] LIPASE 27 <60 September 22, 2023 10:55 AM [facility] ETHANOL Specimen Type: PLASMA No comment entered. Ordering Provider: RADHA DODD Report Released Date/Time: September 22, 2023 10:59 AM Reporting Lab: [facility] [address] Performing Lab: [facility] [address] ETHANOL Negative NEGATIVE September 22, 2023 10:55 AM [facility] EXTRA GOLD GEL TUBE Specimen Type: SERUM No comment entered. Ordering Provider: RADHA DODD Report Released Date/Time: September 22, 2023 11:04 AM Reporting Lab: [facility] [address] Performing Lab: [facility] [address] EXTRA GOLD GEL TUBE RECEIVED September 22, 2023 10:55 AM [facility] COMPREHENSIVE METABOLIC PANEL+MG Specimen Type: PLASMA No comment entered. Ordering Provider: RADHA DODD Report Released Date/Time: September 22, 2023 10:59 AM Reporting Lab: [facility] [address] Performing Lab: [facility] [address] CREATININE 1.0 0.7-1.2 UREA NITROGEN 16 8-26 [...] September 22, 2023 10:59 AM Reporting Lab: [facility] [address] Performing Lab: [facility] [address] WBC 16.53 H 4.0-11.0 RBC 4.55 L [...] PM 97.3 88 131/83 18 90 0 [facility] September 23, 2023 03:47 PM 97 94 [facility] September 23, 2023 03:09 PM 103 115/73 [facility] September 23, 2023 03:07 PM 97.4 95 107/72 16 93 0 [facility] September 23, 2023 08:01 AM 97.5 102 119/83 18 94 0 [facility] Social History: Smoking Status (Most current) and Tobacco Use (All prior to encounter date) This section includes the most current, and the historical, smoking and tobacco- related health factors from the [place] facility where the Encounter took place. Current [...] this document. The data comes from all [facility]. Date Advance Directives Provider Source May 11, [...] 01:38 PM CHEST 1 VIEW: CALVIN JAIN [id number] -1955 M Exm Date: SEPTEMBER 23, 2023@13:38 Req Phys: REVA ROSS Pat Loc: 309-23-2023@14:51 Img Loc: MAIN X-RAY Service: PRIMARY CARE - [place] [address] (Case [id number] COMPLETE) CHEST 1 VIEW (RAD Detailed) CPT:81401 Proc Modifiers : PORTABLE EXAM Reason for Study: see below Clinical History: IS NOT under investigation for COVID-19 or is COVID-19 negative SIRS criteria, no overt sx, please r/o any opacities Responsible provider name and phone number to notify for critical findings if other than user placing the order and pager listed below: User placing orders pager: [phone] LAST CREATININE 1.1 (09/23/23) Report Status: Verified Date Reported: SEPTEMBER 23, 2023 Date Verified: SEPTEMBER 23, 2023 [employer] Supervisor E-Sig:/ES/JANETH OROZCO DO Report: EXAMINATION: CHEST 1 VIEW Reason for Study: see below IS NOT under investigation for COVID-19 or is COVID-19 negative SIRS criteria, no overt sx, please r/o any opacities Responsible provider name and phone number to notify for critical findings if other than user placing the order and pager listed below: User placing orders pager: [phone] LAST CREATININE 1.1 (09/23/23) see below TECHNIQUE: [...] Primary Interpreting Staff: JANETH OROZCO DO, RADIOLOGIST ([employer] Supervisor) /JANETH RASHEED [facility]
--- OUTSIDE RECORDS SUMMARY | 2023-09-23 17:14 | XMS_ITS | Encounter Summary ---
Author Name [employer] Organization [employer] [facility] [employer] Address [address] [place] [address] Support Name Relationship Address Phone MARIBELL VITO Next of Kin [id number] [place] [address] MARIBELL VITO Emergency Contact [phone] [place] [address] Insurance Providers: All historical and [...] Hurt's Name Patient's Relationship to Policy Hurt [facility] (WNR) MEDICARE ADVANTAGE [facility] (WNR) May 16, 2023 [id number] JEAN JAIN IN PATIENT Selected Encounter This section includes the information on record at ME for the Encounter. Date/Time Encounter Type Encounter Description Reason Provider Source Jul 07, 2023 11:00 AM OFFICE O/P EST HI 40 MIN RHEUMATOLOGY/ART HRITIS ICD-10-CM M06.4 Inflammatory polyarthropathy [facility]ON [facility]LY [facility] Encounter Template Text not used by ME Assessments - Encounter Diagnoses This section includes the primary and secondary diagnoses documented for the Encounter. Date/Time Primary/Secondary Diagnosis Diagnosis Name Provider Source Jul 08, 2023 02:26 PM PRIMARY Inflammatory polyarthropathy LEON PEREZ [facility] Jul 08, 2023 02:26 PM SECONDARY Pain in left hip LEON PEREZ [facility] Plan of Treatment: Future Appointments (+ 6 months) and Future Tests (+/- 45 days) The Plan of Treatment section includes future care activities for the patient from all [facility]. This section includes future appointments and future orders which are active, pending or scheduled. Future Appointments This section includes appointments that were scheduled to occur 6 months from the date of the Encounter, up to a maximum of 20 appointments. The data comes from all [facility]. Appointment Date/Time Appointment Type Appointme nt Facility Name Jul 21, 2023 08:30 AM AMBULATORY - NONE [facility] Jul 21, 2023 08:45 AM AMBULATORY - NONE [facility] Jul 21, 2023 09:15 AM AMBULATORY - PSYCHIATRY [facility] Aug 01, 2023 08:00 AM AMBULATORY - SURGERY [facility] Aug 09, 2023 10:30 AM [facility] Aug 22, 2023 11:15 AM AMBULATORY - PSYCHIATRY [facility] Aug 30, 2023 02:00 PM AMBULATORY - MEDICINE [facility] Aug 31, 2023 04:15 PM AMBULATORY - SURGERY [facility] Sep 08, 2023 09:30 AM AMBULATORY - NONE [facility] Sep 08, 2023 10:30 AM [facility] September 22, 2023 10:39 AM AMBULATORY - MEDICINE [facility] September 27, 2023 10:30 AM AMBULATORY - PSYCHIATRY [facility] Nov 10, 2023 07:15 AM AMBULATORY - MEDICINE [facility] Nov 10, 2023 07:30 AM AMBULATORY - MEDICINE [facility] Jan 02, 2024 09:30 AM AMBULATORY - MEDICINE [facility] Jan 02, 2024 10:30 AM AMBULATORY - MEDICINE [facility] Active, Pending, and Scheduled Orders This section includes a listing of several types of active, pending, and scheduled orders, including clinic medications orders, diagnostic test orders, procedure orders and consult orders; where the start date of the order is 45 days before the date of the Encounter or 45 days after the date of theEncounter. The data comes from all [facility]. Test Date/Time Test Type Test Details Facility Name Jun 02, 2023 06:24 PM Consult Order GASTROENTEROLOGY OUTPT Cons [employer] [facility] Jul 21, 2023 12:00 AM Laboratory - Chemistry Order B 12 SERUM SP ONCE [facility] Lab Results: +/- 30 days of the encounter This section includes the Chemistry and Hematology Lab Results on record with ME for the patient. Radiology Reports and Pathology Reports are provided separately, in subsequent sections. Lab Results This section contains the Chemistry/Hematology Results that were resulted 30 days before or 30 daysafter the date of the Encounter. Date/Time Source Result Type Result - Unit Interpretation Reference Range Comment Jul 07, 2023 09:52 AM [facility] RHEUMATOLOGY CHEM PANEL Specimen Type: PLASMA No comment entered. Ordering Provider: OSWALD PEREZ Report Released Date/Time: May 21, 2022 10:24 AM Reporting Lab: [facility] [id number] Performing Lab: [facility] [id number] CREATININE 1.1 0.7-1.2 ALKALINE PHOSPHATASE 130 40-150 ALT/SGPT 71 H <55 AST/SGOT 91 H <34 C-REACTIVE PROTEIN 4.48 <5.00 .CREAT EGFR(CKD-EPI) 74 >60 Jul 07, 2023 09:52 AM [facility] RHEUMATOLOGY HEME PANEL Specimen Type: BLOOD Comment: Automated Differential Performed Ordering Provider: OSWALD PEREZ Report Released Date/Time: May 21, 2022 10:24 AM Reporting Lab: [facility] [id number] Performing Lab: [facility] [id number] WBC 9.57 4.0-11.0 RBC 4.59 L 4.6-6.2 HGB 15.8 13.5-17.9 HCT 44.7 41-54 MCV 97.4 80-100 MCH 34.4 H 27-33 MCHC 35.3 32.0-37.5 PLT 202 150-400 MPV 8.9 7.4-10.4 NEUT 66.3 40.0-80.0 LYMPHS 21.0 15.0-45.0 MONO 10.0 2.0-12.0 EOSINO 1.3 0.0-6.0 BASO 1.0 0.0-2.0 RDW 13.9 11.5-14.5 ABS LYMPH 2.01 1.0-4.0 ABS MONO 0.96 0.1-1.0 ABS NEUT 6.34 2.0-7.7 ABS EOS 0.12 0-0.5 ABS BASO 0.10 0-0.2 IG(META,MYELO, PRO) 0.4 ABS IMMATURE GRAN 0.04 0-0.1 SED RATE 14 5-15 Vital Signs: All taken on the encounter date This section contains inpatient and outpatient Vital Signs collected on the date of the Encounter. Date/Time Temperature Pulse Blood Pressure Respiratory Rate SP02 Pain Height Weight Body Mass Index Source Jul 07, 2023 10:56 AM 97.8 106 130/88 17 94 6 243.5 35 [facility] Social History: Smoking Status (Most current) and Tobacco Use (All prior to encounter date) This section includes the most current, and the historical, smoking and tobacco- related health factors from the ME facility where the Encounter took place. Current Smoking Status This section includes the most current smoking, or tobacco-related health factor, from the ME facility where the Encounter took place. Date/Time Current Smoking Status Comment Facil ity Jun 02, 2023 11:00 AM VA-TOBACCO FORMER USER [facility] Tobacco Use History This section includes a history of the smoking, or tobacco-related health factors, that were collected on or before the date of the Encounter. The data comes from the ME facility where the Encounter took place. Date/Time Smoking Status/Tobacco Use Comment F acility Jun 02, 2023 11:00 AM VA-TOBACCO QUIT 5 TO < 15 YRS [facility] May 21, 2022 10:30 AM VA-TOBACCO FORMER USER [facility] May 21, 2022 10:30 AM VA-TOBACCO QUIT 15 YRS OR MORE [facility] Nov 12, 2020 12:00 PM VA-TOBACCO FORMER USER [facility] Nov 12, 2020 12:00 PM VA-TOBACCO QUIT 5 TO < 15 YRS [facility] May 31, 2019 06:22 AM INPT NO TOBACCO USE IN LAST 30 D AYS [facility] Nov 08, 2017 01:55 PM VA-TOBACCO FORMER USER [facility] Nov 08, 2017 01:55 PM VA-TOBACCO QUIT 1 TO < 5 YRS [facility] May 11, 2017 12:43 PM FORMER TOBACCO USE >1Y <7Y [facility] Aug 04, 2016 10:25 AM FORMER TOBACCO USE >1Y <7Y [facility] Aug 04, 2015 11:31 AM FORMER TOBACCO USE <1Y [facility] Aug 13, 2014 10:50 AM CURRENT TOBACCO USER [facility] October 10, 2013 09:12 AM FORMER TOBACCO USER 7Y OR GREATE R [facility] May 26, 2012 10:14 AM CURRENT TOBACCO USER [facility] Nov 19, 2009 12:07 PM CURRENT TOBACCO USER [facility] Advance Directives: All historical and current Section Date Range: From patient's date of to the date document was created. This section includes ALL of a patient's completed or amended ME Advance and Rescinded Directives. The entries below indicate that a directive exists for the patient, but an actual copy is not included with this document. The data comes from all ME facilities. Date Advance Directives Provider Source May 11, 2006 ADVANCE DIRECTIVE ASH RAZO [facility] Radiology Reports: +/- 30 days [...] the Encounter. The data comes from all ME treatment facilities. Date/Time Radiology Report Provider Source Jul 21, 2023 08:[address] HIP LEFT W/O CO NTRAST: CALVIN JAIN [id number] M Exm Date: JUL 21, 2023@08:27 Req Phys: HA HENDERSON Loc: [facility] PACT GRAPE WH 4D (Req'g Lo Img Loc: CT IMAGING Service: Unknown (Case [id number] COMPLETE) CT HIP LEFT W/O CONTRAST (CT Detailed) CPT:64545 Reason for Study: left hip pain Clinical History: 68 yo M w/ hx of EtOH abuse, hx pelvic fracture/ multiple vertebral fractures: left anterior column posterior acetabular fracture, bilateral superior and inferior pubic rami fracture and T8/T11/L2/L3 endplate fractures. qualifies for empiric treatment for osteoporosis. no sx of radiculopathy. Neurosurgery here at the ME commented that f/u x-rays on 12/10 show normal healing. nornmal testosterone, vit D. DEXA normal. vet has developed worsened left hip pain. left hip pain worsened. left hip x-ray showed: Impression: No significant change in appearance of the healing pelvic fractures. 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 This appearance may be artifactual and due to summation artifact with the healed or healing acetabular fracture. Consider cross-sectional imaging for further evaluation. Per Joint Commission Standards, by signing this diagnostic imaging request the ordering provider confirms they have considered patients age and recent imaging history. Defer to radiologist for final CT protocol. Contact number for responsbile provider who can be reached for any questions or notifications of critical findings: Werner Alejandro TEAMS LAST 3: Collection DT Specimen Test Name Result Units Ref Range 06/02/2023 08:41 PLASMA CREATININE 1.1 mg/dL 0.7 - 1.2 02/07/2023 09:34 PLASMA!! CREATININE 1.0 mg/dL 0.7 - 1.2 11/02/2022 08:55 PLASMA CREATININE 1.0 mg/dL 0.7 - 1.2 06/02/2023 08:41 PLASMA .CREAT EGFR(CKD-E 74 Ref: >=60 02/07/2023 09:34 PLASMA!! .CREAT EGFR(CKD-E 83 Ref: >=60 11/02/2022 08:55 PLASMA .CREAT EGFR(CKD-E 83 Ref: >=60 !! Indicates COMMENTS AVAILABLE...Refer to Interim Lab Report. Allergies: ([place] only) PENICILLIN (Nov 19, 2009) ZOLPIDEM (Dec 26, 2014) KENALONE INJECTION (40 MG/ML) (Oct 26, 2018) Report Status: Verified Date Reported: JUL 21, 2023 Date Verified: JUL 21, 2023 Gut Snatcher E-Sig:/ES/MARITZA CASTREJON MD Report: EXAMINATION: CT HIP LEFT W/O CONTRAST 07/21/2023 8:27 AM INDICATION: 68-year-old male. Left hip pain. History of pelvic fractures and vertebral fractures. TECHNIQUE: Thin section axial imaging without IV contrast. Sagittal and coronal reconstructions. COMPARISON: [employer] 06/02/2023. Total DLP: 425.66 mGycm Impression: Healing/healed fractures of the pelvis including the left acetabulum, left ilium, and bilateral superior and inferior pubic rami. Prominent subchondral cystic changes along the left supra acetabulum. Avascular necrosis involving a large portion of the anterior superior aspect of the left femoral head with associated mild collapse/flattened deformity. Mild/moderate narrowing of the left hip joint. Mild left hip joint effusion. Mild generalized atrophy of the left pelvic girdle and gluteal musculature. Primary Interpreting Staff: MARITZA CASTREJON MD, RADIOLOGIST (Gut Snatcher) /RTS MARITZA CASTREJON [facility] Encounter Notes: All associated encounter notes This section contains the clinical notes associated to the Encounter. Date/Time Encounter Note(s) Provider Source Jul 07, 2023 11:08 AM RHEUMATOLOGY ATTENDING NOTE: LOCAL TITLE: RHEUMATOLOGY CLINIC NOTE STANDARD TITLE: RHEUMATOLOGY ATTENDING NOTE DATE OF NOTE: JUL 07, 2023@11:08 ENTRY DATE: JUL 07, 2023@11:08:37 AUTHOR: MARCY PEREZ COSIGNER: URGENCY: STATUS: COMPLETED CC: F/U inflammatory arthritis Last seen 05/2022 History of present illness: This is a 68 year old MALE who returns to rheumatology clinic today for follow up of inflammatory arthritis. Review from previous rheum notes: His intial exam revealed symmetric synovitis of MCPs and PIPs. He had neg RF and CCP, but elevated inflammatory markers. We considered diagnoses of PMR, sero-negative RA, vs CPP arthritis. He was started on LD prednisone 15mg, and HCQ. He reported 40-45% improvement in 1-2 days, and 50-60% improvement currently. We tapered prednisone to 10mg daily. His inflammatory arthritis returned when his prednisone was tapered off. Inflammatory arthritis improved on MTX and HCQ. Recent flare of PTSD/depression, and question raised about relationship to MTX. Pt had also just had epidural steroid injections prior, which seems a more likely cause. I have not personally noted an association between MTX and worsening depression, although there are anecdotal reports. Plan is to hold MTX and HCQ for 2-3 weeks, then restart MTX at a low dose. He did start the MTX and HCQ again 12/2018. HCQ stopped 08/2019 d/t concern for drug shortage and hand pain/swelling. AM stiffness 5-6 minutes. Has not restarted MTX because he couldn't get a refill and didn't request. Remains on HCQ. MCP joint swelling intermittently. Has been more sore with colder weather. Feet bothering him with cold too, but mostly just hands. Pt had B TKA at this point and he is doing very well with this. He did reinjure his right knee, but has recovered from this. AM stiffness 10 to 15 minutes. Pt notes that his joints are feeling pretty well now. He feels better overall in warmer weather. AM stiffness mostly just a couple of minutes but about 1 hour to fully loosen up for the day. He did not restart MTX after last visit. Continues to take HCQ 200mg daily. Occasionally gets some swelling across his MCP joints but usually resolves after he ices them. He denies any other joint swelling. 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 Also has some tingling/pins and needles feelings in his hands when he sleeps. Shoulders also pain him sometimes. Pain is worse with lifting overheads and exercises, even walking. The shoulders are also stiff in the morning and do improve with some movement after about an hour. Pt notes he continues to have hand pain/swelling. Isn't taking MTX and wondering if there is something he can take daily. Is taking HCQ. AM stiffness 30 minutes. PIP joints are most bothersome. Continues to have some swelling in MCP joints. Also notes some stiffness in ankles and toes. Has pain in shoulders and also knees (these are s/p B TKA). Shoulder pain still worse with overhead movements. Interval history: Had fall 07/2022 and had significant recovery process from this. Was seen at [facility] [place] given this was trauma and was in rehab center for 3-4 months. He fractured his pelvis, back, ribs. Did not need surgery, but still has pain and some limited mobility. Last visit 05/2022, MTX stopped, leflunomide trialed. Last refill 07/2022 of HCQ. He has been off RA meds for a while, no significant flares since he stopped. Stopped taking these meds given all the rehab he was doing for fall/fractures. At this time his left hip is most bothersome to him. DJD noted on xrays along with ? AVN. The hip pain limits his walking. He would like to discuss possible surgery with ortho. Hands are not painful. Gets a little swelling across MCPs, but not consistently and usually after use. Has tremor which is not new and he notes his PCP is aware of. Has some trigger fingers. AM stiffness up to 30 minutes. Feet are tingling, not painful, but can be numb. EMG scheduled for July. No OTC pain medications. He is currently not taking any medication for his RA. Recurrent or prolonged infections - None ROS: General: Denies fevers, chills. No unexplained weight changes. Denies excessive fatigue. HEENT: No oral sores. CV: No angina. Respiratory: No dyspnea. Denies persistent cough. GI: No abdominal pain, diarrhea, nausea, melena/hematochezia. Skin: Denies rashes. 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) Compression fracture of thoracic spine (PAIN, NECK/CERVICALGIA (ICD-9-CM 723.1) Posttraumatic stress disorder ([facility] 08101Hkie pain ([facility] [id number]) OEF/OIF EXPOSURE TO BURN PIT SMOKE (ICD-OEF/OIF EXPOSURE TO SANDSTORMS/DUSTSTORMS (ICD-10-CM R69.) Dyspnea on exertion ([facility] [id number]) Dyspnea on exertion ([facility] [id number]) Pain radiating to right side of chest (SHypertension ([facility] [id number]) Inflammatory polyarthritis ([facility] [id number] risk drug monitoring status ([facility] [id number]) Ethanol abuse ([facility] [id number]) --------- Social Hx: Marital status:NEVER Allergies: PENICILLIN (Nov 19, 2009) ZOLPIDEM (Dec 26, 2014) KENALONE INJECTION (40 MG/ML) (Oct 26, 2018) Active Outpatient Medications (including Supplies): Active Outpatient Medications Status 1) ACETAMINOPHEN 500MG TAB TAKE TWO TABLETS BY MOUTH ACTIVE TWICE A DAY FOR LOW BACK AND LEFT HIP PAIN 2) ALENDRONATE 10MG TAB TAKE ONE TABLET BY MOUTH EVERY ACTIVE DAY TO PREVENT BONE LOSS 3) CHOLECALCIF 25MCG (D3-1,000UNIT) TAB TAKE ONE TABLET ACTIVE BY MOUTH EVERY DAY FOR VITAMIN D 4) CYANOCOBALAMIN 1000MCG TAB TAKE ONE TABLET BY MOUTH ACTIVE EVERY DAY FOR B12 SUPPLEMENT 5) ESZOPICLONE 3MG TAB TAKE ONE TABLET BY MOUTH AT ACTIVE BEDTIME FOR INSOMNIA 6) FOLIC ACID 1MG TAB TAKE ONE TABLET BY MOUTH EVERY DAY ACTIVE FOR FOLIC ACID SUPPLEMENT 7) HYDROCHLOROTHIAZIDE 25MG TAB TAKE ONE TABLET BY MOUTH ACTIVE EVERY DAY FOR BLOOD PRESSURE 8) LAMOTRIGINE 25MG TAB TAKE ONE TABLET BY MOUTH EVERY ACTIVE DAY FOR 14 DAYS, THEN TAKE TWO TABLETS EVERY DAY FOR 14 DAYS, THEN TAKE FOUR TABLETS EVERY DAY FOR 30 DAYS FOR MOOD 9) LIDOCAINE 5% PATCH APPLY 1 PATCH TOPICALLY EVERY DAY ACTIVE NEEDED FOR UP TO 12 HOURS FOR PAIN IN 10) MAGNESIUM OXIDE 420MG TAB TAKE ONE TABLET BY MOUTH AT ACTIVE BEDTIME FOR MAGNESIUM SUPPLEMENT 11) NALTREXONE (EQV-REVIA) 50MG TAB TAKE ONE TABLET BY ACTIVE MOUTH EVERY DAY FOR SOBRIETY 12) OMEPRAZOLE 20MG EC CAP TAKE ONE CAPSULE BY MOUTH ACTIVE EVERY DAY FOR STOMACH ACID - TAKE AT LEAST 30 MIN PRIOR TO MEAL ON EMPTY STOMACH 13) THIAMINE 100MG TAB TAKE ONE TABLET BY MOUTH EVERY DAY ACTIVE FOR SUPPLEMENT 14) VORTIOXETINE 20MG TAB TAKE ONE TABLET BY MOUTH EVERY ACTIVE DAY Active Non-VA Medications Status 1) Non-VA ACETAMINOPHEN 325MG TAB 325MG MOUTH EVERY 6 ACTIVE HOURS NEEDED 2) Non-VA HYDROXYCHLOROQUINE SULFATE 200MG TAB 200MG ACTIVE MOUTH EVERY MORNING 3) Non-VA [facility] MEDICATIONS MISCELLANEOUS ACTIVE 4) Non-VA OMEPRAZOLE 20MG EC CAP 20MG MOUTH EVERY DAY ACTIVE 5) Non-VA SIMVASTATIN 20MG TAB 20MG MOUTH AT BEDTIME ACTIVE 19 Total Medications Physical Examination: VS: Temp: 97.8 F [36.6 C] (07/07/2023 10:56) BP: 130/88 (07/07/2023 10:56) Pulse:106 (07/07/2023 10:56) Resp: 17 (07/07/2023 10:56) Weight: 243.5 lb [110.45 kg] (07/07/2023 10:56) BMI: 34.5 Pain: 6 (07/07/2023 10:56) O2 Sat: 94% (07/07/2023 10:56) GENERAL: NAD. HEENT: Normal conjunctiva. SKIN: No rash noted. No nail pitting. MSK: Resting tremor bilateral hands. No synovitis or tender joints on exam. Patient able to make full fists bilaterally. Joint Exam: Swelling (S), Tenderness (T) Acromioclav Right:S0 T0 Left:S0 T0 Glenohumeral Right:S0 T0 Left:S0 T0 Elbow Right:S0 T0 Left:S0 T0 Wrist Right:S0 T0 Left:S0 T0 MCP Right:S0 T0 Left:S0 T0 PIP Right:S0 T0 Left:S0 T0 DIP Right:S0 T0 Left:S0 T0 Knee Right:SO T0 Left:S0 T0 Tibiotalar Right:S0 T0 Left:S0 T0 Subtalar Right:S0 T0 Left:S0 T0 Metatarsals Right:S0 T0 Left:S0 T0 Valuation Manager Strength: Right: 5-/5 Left: 5-/5 LABORATORY DATA: WBC 9.57 (07/07/23) HGB 15.8 (07/07/23) PLT 202 (07/07/23) CREATININE 1.1 (07/07/23) SGOT 91 H (07/07/23) SGPT 71 H (07/07/23) ALK PHOSPHATASE 130 (07/07/23) WESTERGREN 14 (07/07/23) C-REACTIVE PROTEIN 4.48 (07/07/23) Imaging: No new today. Assessment/Plan: 1. Inflammatory symmetric small joint synovitis Comment: Pt has had bilateral hand and shoulder pain and previous differential includes seronegative RA, PMR, and CPP arthritis. RF and CCP negative. No erosions on x-ray. 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 He did well on prednisone previously, but gained weight with this and would like to avoid. Also per previous rheum notes his joints responded well to MTX and HCQ, but there was a period of time that these were held over concern that it was aggravating his PTSD/depression. He restarted both MTX and HCQ and hasn's had any known related side effects since. August-October 2019 he again stopped both HCQ and MTX (d/t concern for HCQ shortage and MTX d/t increased creatinine) and had worsening hand pain/swelling off again, so both were restarted after creatinine returned to normal range. He had a traumatic fall 07/2022 and sustained several fractures. Was in rehab facility for months after this and during that time his DMARDs were stopped. Last took HCQ 10/2022. He hasn't had any flares up to this point. Mostly has left hip pain (see #2 below). No synovitis or tender joints on exam. Normal inflammatory markers. At this time, will keep him off DMARDs, but discussed that he may need to restart at some point. Discussed s/sx for which he should return to rheumatology, otherwise will follow up with him in 6 months to reassess. Plan: - Stay off MTX and HCQ at this time - RTC 6 months with labs prior, sooner PRN 2. Left hip pain Comment: DJD noted on xrays along with ? AVN. He is s/p B TKA and wondering if he may be able to have CAMELIA. Hip pain is quite limiting to him. Plan: Ortho consult 3. Elevated LFTs Comment: Not on DMARDs at this time. PCP is working up. Plan: Pt has GI consult already ordered All lab results were available and discussed with the patient during the clinic appointment. /ubaldo/ MARCY PEREZ NP NURSE PRACTITIONER Signed: 07/08/2023 14:26 MARCY PEREZ [facility] Jul 07, 2023 10:58 AM INTERNAL MEDICINE OUTPATIENT NOTE: LOCAL TITLE: MEDICINE CLINIC NURSING NOTE STANDARD TITLE: INTERNAL MEDICINE OUTPATIENT NOTE DATE OF NOTE: JUL 07, 2023@10:58 ENTRY DATE: JUL 07, 2023@10:58:39 AUTHOR: KATIA LIEBERMAN EXP COSIGNER: URGENCY: STATUS: COMPLETED TYPE OF VISIT: Appointment Check In Type of appointment: In-person appointment REASON FOR VISIT: Scheduled visit ALLERGIES: PENICILLIN (Nov 19, 2009) ZOLPIDEM (Dec 26, 2014) KENALONE INJECTION (40 MG/ML) (Oct 26, 2018) VITAL SIGNS: Blood Pressure: 130/88 (07/07/2023 10:56) Pulse: 106 (07/07/2023 10:56) Respiration: 17 (07/07/2023 10:56) Temperature: 97.8 F [36.6 C] (07/07/2023 10:56) Weight: 243.5 lb [110.45 kg] (07/07/2023 10:56) Height: 70.5 in [179.1 cm] (06/02/2023 10:48) BMI: 34.5 O2 Sat: 94% (07/07/2023 10:56) Pain: 6 (07/07/2023 10:56) PAIN SCREEN: Patient is having significant pain that they would like to talk to their provider about today. Old (Chronic) (began more than 6 months ago) Patient states their average pain this past week is 6 Patient states the average number on how the chronic pain affects their enjoyment of life the past week is 5 Patient states during the past week the average number on how the pain has interfered with their general activity is 6 MEDICATION Over the Counter/Herbal Medications: The patient denies taking any outside medications or herbals. /ubaldo/ KATIA LIEBERMAN LPN Signed: 07/07/2023 11:00 KATIA LIEBERMAN [facility]
--- OUTSIDE RECORDS SUMMARY | 2023-09-23 17:14 | XMS_ITS | Encounter Summary ---
Author Name [employer] Organization [facility] [employer] Address [address] [place] [address] Support Name Relationship Address Phone MARIBELL VITO Next of Kin [id number] [place] [address] MARIBELLVITO Emergency Contact [address] [place] [address] Insurance Providers: All historical and [...] Hurt's Name Patient's Relationship to Policy Hurt [facility] (WNR) MEDICARE ADVANTAGE [facility] (WNR) May 16, 2023 [id number] JEAN JAIN IN PATIENT Selected Encounter This section includes the information on record at [place] for the Encounter. Date/Time Encounter Type Encounter Description Reason Provider Source Feb 07, 2023 09:30 AM OFFICE O/P EST LOW 20-29 MIN ORTHO/JOINT SURG ICD-10-CM Z47.89 Encounter for other orthopedic aftercare DOMINIC SAHH Zeke Encounter Template Text not used by [place] Assessments - Encounter Diagnoses This section includes the primary and secondary diagnoses documented for the Encounter. Date/Time Primary/Secondary Diagnosis Diagnosis Name Provider Source Feb 11, 2023 01:00 PM PRIMARY Encounter for other orthopedic aftercare GUY ADORNO ON [facility] Plan of Treatment: Future Appointments (+ 6 months) and Future Tests (+/- 45 days) The Plan of Treatment section includes future care activities for the patient from all [facility]. This section includes future appointments and future orders which are active, pending or scheduled. Future Appointments This section includes appointments that were scheduled to occur 6 months from the date of the Encounter, up to a maximum of 20 appointments. The data comes from all [facility]. Appointment Date/Time Appointment Type Appointme nt Facility Name Feb 24, 2023 10:15 AM AM[place]ORY [place] [facility] Mar 11, 2023 12:00 PM [place] [facility] Mar 28, 2023 10:00 AM [place] [facility] Mar 30, 2023 08:30 AM [place] [facility] Mar 30, 2023 09:00 AM [place] [facility] May 02, 2023 08:30 AM [place] [facility] May 19, 2023 10:15 AM AM[place] [facility] Jun 02, 2023 10:00 AM [place] [facility] Jun 02, 2023 11:00 AM [facility] [place] [facility] Jun 02, 2023 12:00 PM [place] [facility] Jul 05, 2023 08:30 AM AMBULATORY - REHAB MEDICIN E [facility] Jul 07, 2023 10:00 AM [facility] Jul 07, 2023 11:00 AM [facility] Jul 21, 2023 08:30 [facility] Jul 21, 2023 08:45 AM [place] [facility] Jul 21, 2023 09:15 AM [place] [facility] Aug 01, 2023 08:00 AM [facility] Active, Pending, and Scheduled Orders This section includes a listing of several types of active, pending, and scheduled orders, including clinic medications orders, diagnostic test orders, procedure orders and consult orders; where the start date of the order is 45 days before the date of the Encounter or 45 days after the date of theEncounter. The data comes from all [facility]. Test Date/Time Test Type Test Details Facility Name Mar 11, 2023 12:00 AM Laboratory - Chemistry Order TSH W/REFLEX TO FREE T4 PLASMA SP ONCE [facility] Mar 11, 2023 12:00 AM Laboratory - Chemistry Order COMPREHENSIVE METABOLIC PANEL+MG PLASMA SP [facility] Mar 11, 2023 12:00 AM Laboratory - Chemistry Order IRON GROUP SERUM SP [facility] Mar 11, 2023 12:00 AM Laboratory - Chemistry Order CBC & DIFF BLOOD SP ONCE [facility] Mar 11, 2023 12:00 AM Laboratory - Chemistry Order ELP/IMMFIX,SERUM PANEL SERUM SP ONCE [facility] Lab Results: +/- 30 days of the encounter This section includes the Chemistry and Hematology Lab Results on record with [place] for the patient. Radiology Reports and Pathology Reports are provided separately, in subsequent sections. Lab Results This section contains the Chemistry/Hematology Results that were resulted 30 days before or 30 daysafter the date of the Encounter. Date/Time Source Result Type Result - Unit Interpretation Reference Range Comment Feb 08, 2023 09:34 AM [facility] PHOSPHORUS Specimen Type: PLASMA No comment entered. Ordering Provider: GIORGIO HENDERSON Report Released Date/Time: Feb 08, 2023 10:27 AM Reporting Lab: [facility] [id number] Performing Lab: [facility] [address] PHOSPHORUS 4.1 2.3-4.7 Feb 07, 2023 01:57 PM [facility] URINALYSIS Specimen Type: URINE No comment entered. Ordering Provider: GIORGIO HENDERSON Report Released Date/Time: Feb 07, 2023 01:16 PM Reporting Lab: [facility] [id number] Performing Lab: [facility] [address] URINE COLOR YELLOW SPECIFIC GRAVITY 1.025 1.003-1.03 5 URINE BILIRUBIN NEGATIVE NEGATIVE URINE KETONES NEGATIVE NEGATIVE URINE GLUCOSE NEGATIVE See_Co mmen t URINE PROTEIN 20 See_Co mmen t URINE PH 5.5 5.0-8.0 URINE WBC/HPF 2 0-7 URINE BACTERIA NONE SEEN URINE RBC/HPF 1 0-3 APPEARANCE CLEAR SQUAMOUS EPITHELIAL NONE SEEN URINE BLOOD NEGATIVE NEGATIVE URINE NITRITE NEGATIVE NEGATIVE LEUKOCYTE ESTERASE NEGATIVE NEGATIVE Feb 07, 2023 09:34 AM [facility] HEMOGLOBIN A1C Specimen Type: BLOOD Comment: Values obtained from A1C measurements can vary. For typical A1C assays, a reported value of 7.0 could actually be between 6.7 and 7.3 if measured by a reference method. A reported value of 9.0 could actually be between 8.7 and 9.3. Ref: http://www.ng sp.org/CAPdat a.asp Ordering Provider: GIORGIO HENDERSON Report Released Date/Time: Feb 03, 2023 12:29 PM Reporting Lab: [facility] [address] Performing Lab: [facility] [address] HEMOGLOBIN A1C 4.7 4.0-6.0 Feb 07, 2023 09:34 AM [facility] LIVER FUNCTION TESTS Specimen Type: PLASMA Comment: Critical Value Reported To: Dr Brijesh Henderson 02/07/23@1040 GES. Critical value report confirmed. Ordering Provider: GIORGIO HENDERSON Report Released Date/Time: Feb 03, 2023 12:29 PM Reporting Lab: [facility] [phone] Performing Lab: [facility] [address] BILIRUBIN, TOTAL 0.4 0.2-1.2 ALKALINE PHOSPHATASE 135 40-150 ALT/SGPT 73 H <55 AST/SGOT 65 H <34 GAMMA GTP 112 H <64 Feb 07, 2023 09:34 AM [facility] LIPID PANEL,NON-FASTING Specimen Type: PLASMA Comment: Critical Value Reported To: Dr Brijesh Henderson 02/07/23@1040 GES. Critical value report confirmed. Ordering Provider: GIORGIO HENDERSON Report Released Date/Time: Feb 03, 2023 12:29 PM Reporting Lab: [facility] [address] Performing Lab: [facility] [address] CHOLESTEROL 216 H <199 .HDL 42 >40 LDL CALCULATION 141 H <99 VLDL CALCULATION 33 H <29 NON HDL CHOLESTEROL 174 H <129 TRIG(NON FASTING) 164 H <149 Feb 07, 2023 09:34 AM [facility] CBC & DIFF Specimen Type: BLOOD Comment: Automated Differential Performed Ordering Provider: GIORGIO HENDERSON Report Released Date/Time: Feb 03, 2023 12:29 PM Reporting Lab: [facility] [phone] Performing Lab: [facility] [address] WBC 8.15 4.0-11.0 RBC 3.68 L 4.6-6.2 HGB 12.3 L 13.5-17.9 HCT 37.0 L 41-54 MCV 100.5 H 80-100 MCH 33.4 H 27-33 MCHC 33.2 32.0-37.5 PLT 392 150-400 MPV 8.7 7.4-10.4 NEUT 48.0 40.0-80.0 LYMPHS 30.9 15.0-45.0 MONO 13.9 H 2.0-12.0 EOSINO 4.7 0.0-6.0 BASO 1.0 0.0-2.0 RDW 14.3 11.5-14.5 ABS LYMPH 2.52 1.0-4.0 ABS MONO 1.13 H 0.1-1.0 ABS NEUT 3.92 2.0-7.7 ABS EOS 0.38 0-0.5 ABS BASO 0.08 0-0.2 IG(META,MYELO,P RO) 1.5 ABS IMMATURE GRAN 0.12 H 0-0.1 Feb 07, 2023 09:34 AM [facility] COMPREHENSIVE METABOLIC PANEL+MG Specimen Type: PLASMA Comment: Critical Value Reported To: Dr Brijesh Henderson 02/07/23@1040 GES. Critical value report confirmed. Ordering Provider: GIORGIO HENDERSON Report Released Date/Time: Feb 03, 2023 12:29 PM Reporting Lab: [facility] [address] Performing Lab: [facility] [phone] CREATININE 1.0 0.7-1.2 UREA NITROGEN 13 8-26 GLUCOSE 99 70-100 SODIUM 140 136-145 POTASSIUM 3.8 3.5-5.1 CHLORIDE 106 98-107 CO2 26 22-29 CALCIUM 7.7 L 8.4-10.2 PROTEIN,TOTAL 7.0 6.0-8.3 ALBUMIN 3.8 3.5-5.2 BILIRUBIN, TOTAL 0.4 0.2-1.2 MAGNESIUM 1.0 LL 1.6-2.6 ANION GAP 8 5-15 ALKALINE PHOSPHATASE 135 40-150 ALT/SGPT 73 H <55 AST/SGOT 65 H <34 .CREAT EGFR(CKD-EPI) 83 >60 Feb 07, 2023 09:34 AM [facility] PTH-N-TACT Specimen Type: PLASMA Comment: Specimen received is PLASMA. Ordering Provider: GIORGIO HENDERSON Report Released Date/Time: Feb 08, 2023 10:50 AM Reporting Lab: [facility] [address] Performing Lab: [facility] [address] PTH-N-TACT 125.6 H 8.7-77.1 Feb 07, 2023 09:34 AM [facility] B 12 Specimen Type: SERUM Comment: Specimen received is PLASMA. Ordering Provider: GIORGIO HENDERSON Report Released Date/Time: Feb 07, 2023 01:16 PM Reporting Lab: [facility] [address] Performing Lab: [facility] [address] B 12 [phone] Feb 07, 2023 09:34 AM [facility] TSH W/REFLEX TO FREE T4 Specimen Type: PLASMA Comment: Specimen received is PLASMA. Ordering Provider: GIORGIO HENDERSON Report Released Date/Time: Feb 07, 2023 01:16 PM Reporting Lab: [facility] [address] Performing Lab: [facility] [address] TSH 7.97 H 0.35-4.94 FREE T4 0.83 0.70-1.48 Vital Signs: All taken on the encounter date This section contains inpatient and outpatient Vital Signs collected on the date of the Encounter. Date/Time Temperature Pulse Blood Pressure Respiratory Rate SP02 Pain Height Weight Body Mass Index Source Feb 07, 2023 12:00 PM 97.7 F 102 /min 122/85 mm[Hg] 16 /min 94 % 3 249.3 lb [facility] Social History: Smoking Status (Most current) and Tobacco Use (All prior to encounter date) This section includes the most current, and the historical, smoking and tobacco- related health factors from the [place] facility where the Encounter took place. Current Smoking Status This section includes the most current smoking, or tobacco-related health factor, from the [place] facility where the Encounter took place. Date/Time Current Smoking Status Comment Nigel terrazas May 21, 2022 10:30 AM VA-TOBACCO FORMER USER [facility] Tobacco Use History This section includes a history of the smoking, or tobacco-related health factors, that were collected on or before the date of the Encounter. The data comes from the [place] facility where the Encounter took place. Date/Time Smoking Status/Tobacco Use Comment F acility May 21, 2022 10:30 AM VA-TOBACCO QUIT 15 YRS OR MORE [facility] Nov 12, 2020 12:00 PM VA-TOBACCO FORMER USER [facility] Nov 12, 2020 12:00 PM VA-TOBACCO QUIT 5 TO < 15 YRS [facility] May 31, 2019 06:22 AM INPT NO TOBACCO USE IN LAST 30 D AYS [facility] Nov 08, 2017 01:55 PM VA-TOBACCO FORMER USER [facility] Nov 08, 2017 01:55 PM [place] QUIT 1 TO < 5 YRS [facility] May 11, 2017 12:43 PM FORMER TOBACCO USE >1Y <7Y [facility] Aug 04, 2016 10:25 AM FORMER TOBACCO USE >1Y <7Y [facility] Aug 04, 2015 11:31 AM FORMER TOBACCO USE <1Y [facility] Aug 13, 2014 10:50 AM CURRENT TOBACCO USER [facility] October 10, 2013 09:12 AM FORMER TOBACCO USER 7Y OR GREATE R [facility] May 26, 2012 10:14 AM CURRENT TOBACCO USER [facility] Nov 19, 2009 12:07 PM CURRENT TOBACCO USER [facility] Advance Directives: All historical and current Section Date Range: From patient's date of to the date document was created. This section includes ALL of a patient's completed or amended [place] Advance and Rescinded Directives. The entries below indicate that a directive exists for the patient, but an actual copy is not included with this document. The data comes from all [facility]. Date Advance Directives Provider Source May 11, 2006 ADVANCE DIRECTIVE ASH RAZO [facility] Radiology Reports: +/- 30 days [...] the Encounter. The data comes from all [place] treatment facilities. Date/Time Radiology Report Provider Source Feb 07, 2023 08:33 AM PELVIS JUDET VIEWS (P): CALVIN JAIN [id number] -[id number] M Exm Date: FEB 07, 2023@08:33 Req Phys: DAVID CHAVEZ Pat Loc: [facility] ORTHO ALYSSA (Req'g Loc Img Loc: MAIN X-RAY Service: Unknown (Case [id number] COMPLETE) PELVIS 3 VIEWS OR MORE (RAD Detailed) CPT:75259 Reason for Study: acetabulum fx Clinical History: IS NOT under investigation for COVID-19 or is COVID-19 negative L acetabulum fx Responsible provider name and phone number to notify for critical findings if other than user placing the order and pager listed below: User placing orders pager: [phone] LAST CREATININE 1.0 (11/02/22) Report Status: Verified Date Reported: FEB 07, 2023 Date Verified: FEB 07, 2023 Actimize Architect E-Sig:/ES/ITA NO MD Report: Exam: Pelvis 2 views, 02/07/2023 HISTORY: Left acetabulum fracture. COMPARISON: Pelvis 2 views, 12/10/2022. Impression: Oblique radiographs of the pelvis were obtained. Healing fracture of the superior-medial left acetabulum with sclerosis and callus formation. Not significantly changed in appearance since the 12/10/2022 exam. There are also healing fractures of the left superior and bilateral inferior pubic rami better evaluated on the inlet and outlet radiographs of the pelvis performed on the same date. Mild degenerative changes in the lower lumbar spine. Primary Interpreting Staff: ITA NO MD, RADIOLOGIST (Actimize Architect) /ITA CAICEDO [facility] Feb 07, 2023 08:32 AM PELVIS INLET-OUTLE T VIEWS (P): CALVIN JAIN [id number] -1955 M Exm Date: FEB 07, 2023@08:32 Req Phys: DAVID CHAVEZ Pat Loc: [facility] ORTHO ALYSSA (Req'g Loc Img Loc: MAIN X-RAY Service: Unknown (Case [id number] COMPLETE) PELVIS 3 VIEWS OR MORE (RAD Detailed) CPT:35315 Reason for Study: pelvis fx Clinical History: IS NOT under investigation for COVID-19 or is COVID-19 negative pelvis fx Responsible provider name and phone number to notify for critical findings if other than user placing the order and pager listed below: User placing orders pager: [phone] LAST CREATININE 1.0 (11/02/22) Report Status: Verified Date Reported: FEB 07, 2023 Date Verified: FEB 07, 2023 [employer]imize Architect E-Sig:/ES/ITA NO MD Report: Exam: Pelvis 3 views, 02/07/2023 HISTORY: Pelvis fracture. COMPARISON: Pelvis 3 views, 12/10/2022. Impression: AP, inlet, and outlet radiographs of the pelvis were performed. Healing fractures of the right superior and bilateral anterior pubic rami with increased sclerosis and callus formation since the previous exam. There is also a healing fracture of the superior medial left acetabulum with surrounding callus formation, unchanged. Degenerative changes in the hips, left greater than right. Minimal degenerative changes in the inferior aspect of the SI joints. Primary Interpreting Staff: ITA NO MD, RADIOLOGIST (Actimize Architect) /ITA CAICEDO [facility] Pathology Reports: +/- 30 days of the encounter Pathology Reports For cases when an order for pathology services may have been completed prior to the date of the Encounter, the report list includes the Pathology Reports that were completed up to 30 days before dateof the Encounter. For cases when an order for pathology services may have been completed after the date of the Encounter, the report list also includes the Pathology Reports that were completed up to30 days after date of the Encounter. The data comes from all [place] treatment facilities. Date/Time Pathology Report Provider Source Feb 07, 2023 02:01 PM LR MICROBIOLOGY RE PORT: Reporting Lab: [facility] [CLIA# [id number]] [place] [address] Accession [UID]: [id number] [[id number]] Received: Feb 07, 2023@14:01 Collection sample: URINE Collection date: Feb 07, 2023 14:01 Provider: BRIJESH HENDERSON Comment on specimen: RECEIVED IN URINE PRESERVATIVE TUBE Test(s) ordered: CULTURE & SUSCEPTIBILITY...... completed: Feb 08, 2023 * BACTERIOLOGY FINAL REPORT => Feb 08, 2023 10:17 TECH CODE: [id number] CULTURE RESULTS: LESS THAN 10,000 CFU/ML Bacteriology Remark(s): THIS REPORT IS FINAL =--=--=--=--=--=--=--=--=--=--=--=- -=--=--=--=--=--=--=--=--=--=--=--= --=--=-- Performing Laboratory: Bacteriology Report Performed By: [facility] [CLIA# [id number]] [address] [place] [address] [facility] Encounter Notes: All associated encounter notes This section contains the clinical notes associated to the Encounter. Date/Time Encounter Note(s) Provider Source Feb 07, 2023 09:00 AM ORTHOPEDIC SURGERY ATTENDING NOTE: LOCAL TITLE: ORTHOPEDIC CLINIC NOTE STANDARD TITLE: ORTHOPEDIC SURGERY ATTENDING NOTE DATE OF NOTE: FEB 07, 2023@09:00 ENTRY DATE: FEB 07, 2023@09:01:01 AUTHOR: MAKSIM ADORNO EXP COSIGNER: URGENCY: STATUS: COMPLETED Orthopaedic Clinic Note HPI Patient is a 67-year-old male who was last seen on December 10, 2022 for bilateral superior and inferior pubic rami fractures as well as a left anterior column acetabular fracture that occurred on 08/05/2022 after he fell down a flight of stairs. He was initially seen at [facility] where he was treated nonoperatively with a period of immobilization and nonweightbearing to his left lower extremity. Last encounter, he was progressing well with therapies and had stable x-rays with plans for continued nonoperative management with weightbearing as tolerated status. Today, he is doing quite well and has been ambulating independently at home. He uses a walker versus a cane when walking long distances. He has not returned to driving and is hoping to do so. Objective: Gen: well-appearing, alert and oriented, NAD Pulm: non-labored respirations on room air BLE: - Antalgic gait on the left - Skin intact throughout, no rashes or erythema. - Grossly neutral alignment - No joint effusion - Non-TTP throughout extremity - Full painless ROM at all major joints - SILT niles, saph, tib, SP, and DP distribs - Fires quad, hamstrings, TA, GSC, EHL, FHL, wiggles lesser toes. - 2+ DP pulse. Imaging: X-ray AP pelvis with inlet outlet and Judets obtained today demonstrating stable alignment of fractures with interval healing. Assessment: 67-year-old male approximately 6 months status post the above injuries. Progressing well. Fracture is healed radiographically and he has returned to his normal level activities other than driving to this point. Plan: -Weightbearing as tolerated -Begin driving. Advised him to drive in a empty parking lot with his sister for the first time he tries driving again and slowly progress from there in a stepwise fashion until he feels comfortable driving at highway speeds over period of several weeks -Patient can follow-up as needed at this point. He was discharged from clinic Discussed with Dr. Alyssa Adorno MD Orthopaedic Surgery, PGY-3 /es/ MAKSIM ADORNO MD RESIDENT, ORTHO Signed: 02/07/2023 09:33 MAKSIM ADORNO [facility]
--- OUTSIDE RECORDS SUMMARY | 2023-09-23 17:14 | XMS_ITS | Encounter Summary ---
Author Name [employer] of Vetera Affairs Organization [facility] Address [address] [place] [address] Support Name Relationship Address Phone MARIBELL, VITO Next of Kin [address] [address] MARIBELL, VITO Emergency Contact [address] [place] [address] Insurance Providers: All historical and [...] Hurt's Name Patient's Relationship to Policy Hurt [facility] (WNR) MEDICARE ADVANTAGE [facility] (WNR) May 16, 2023 [id number] JEAN JAIN IN PATIENT Selected Encounter This section includes the information on record at [place] for the Encounter. Date/Time Encounter Type Encounter Description Reason Provider Source Feb 07, 2023 12:00 PM OFFICE O/P EST HI 40-54 MIN PRIMARY CARE/MEDICINE ICD-10-CM M06.4 Inflammatory polyarthropathy GIORGIO HENDERSON MIN E [facility] Encounter Template Text not used by [place] Assessments - Encounter Diagnoses This section includes the primary and secondary diagnoses documented for the Encounter. Date/Time Primary/Secondary Diagnosis Diagnosis Name Provider Source Feb 08, 2023 11:05 AM PRIMARY Inflammatory polyarthropathy MATI HENDERSON IN [facility] Feb 08, 2023 11:05 AM SECONDARY Alcohol use, unspecified, in remission MATI HENDERSON IN [facility] Feb 08, 2023 11:05 AM SECONDARY Contact with and exposure to other hazardous substances MATI HENDERSON IN [facility] Feb 08, 2023 11:05 AM SECONDARY Encounter for immunization DANIELMARNI [facility] Feb 08, 2023 11:05 AM SECONDARY Essential (primary) hypertension MATI HENDERSON IN [facility] Feb 08, 2023 11:05 AM SECONDARY Hypocalcemia MATI HENDERSON IN [facility] Feb 08, 2023 11:05 AM SECONDARY Hypomagnesemia MATI HENDERSON IN [facility] Feb 08, 2023 11:05 AM SECONDARY Mixed hyperlipidemia MATI HENDERSON IN [facility] Feb 08, 2023 11:05 AM SECONDARY Post-traumatic stress disorder, unspecified MATI HENDERSON IN [facility] Feb 08, 2023 11:05 AM SECONDARY Wedge compression fracture of T7-T8 vertebra, init MATI HENDERSON IN [facility] Plan of Treatment: Future Appointments (+ 6 months) and Future Tests (+/- 45 days) The Plan of Treatment section includes future care activities for the [facility] [place] [facility]. This section includes future appointments and future orders which are active, pending or scheduled. Future Appointments This section includes appointments that were scheduled to occur 6 months from the date of the Encounter, up to a maximum of 20 appointments. The data comes from all [place] treatment facilities. Appointment Date/Time Appointment Type Appointme nt Facility Name Feb 24, 2023 10:15 AM AMBULATORY - PS[place]CHIATRY [place] [facility] Mar 11, 2023 12:00 PM AMBULATORY - NONE [place] [facility] Mar 28, 2023 10:00 AM AMBULATORY - NONE [place] [facility] Mar 30, 2023 08:30 AM AMBULATORY - NONE [place] [facility] Mar 30, 2023 09:00 AM AMBULATORY - NONE [place] [facility] May 02, 2023 08:30 AM AMBULATORY - NONE [place] [facility] May 19, 2023 10:15 AM AMBULATORY - [place]IAT[place] [facility] Jun 02, 2023 10:00 AM AM[place]ULATORY - NONE [place] [facility] Jun 02, 2023 11:00 AM [facility] Jun 02, 2023 12:00 PM AM[facility]ORY - NONE [place] [facility] Jul 05, 2023 08:30 AM AMBULATORY - REHAB MEDICIN E [facility] Jul 07, 2023 10:00 AM [facility] Jul 07, 2023 11:00 AM [facility] Jul 21, 2023 08:30 AM AMBULATORY - NONE [place] Jul 21, 2023 08:45 AM [facility] Jul 21, 2023 09:15 AM [facility] Aug 01, 2023 08:00 AM AMBULATORY - SURGERY [facility] Active, Pending, and Scheduled Orders This section includes a listing of several types of active, pending, and scheduled orders, including clinic medications orders, diagnostic test orders, procedure orders and consult orders; where the start date of the order is 45 days before the date of the Encounter or 45 days after the date of theEncounter. The data comes from all [place] treatment facilities. Test Date/Time Test Type Test Details Facility Name Mar 11, 2023 12:00 AM Laboratory - Chemistry Order TSH W/REFLEX TO FREE T4 PLASMA SP ONCE [facility] Mar 11, 2023 12:00 AM Laboratory - Chemistry Order CBC & DIFF BLOOD SP ONCE [facility] Mar 11, 2023 12:00 AM Laboratory - Chemistry Order IRON GROUP SERUM SP [facility] Mar 11, 2023 12:00 AM Laboratory - Chemistry Order COMPREHENSIVE METABOLIC PANEL+MG PLASMA SP [facility] Mar 11, 2023 12:00 AM Laboratory - Chemistry Order ELP/IMMFIX,SERUM PANEL SERUM SP ONCE [facility] Lab Results: +/- 30 days of [...] Range Comment Feb 08, 2023 09:34 AM [facility] PHOSPHORUS Specimen Type: PLASMA No comment entered. Ordering Provider: GIORGIO HENDERSON Report Released Date/Time: Feb 08, 2023 10:27 AM Reporting Lab: [facility] [id number] Performing Lab: [facility] [address] PHOSPHORUS 4.1 2.3-4.7 Feb 07, 2023 01:57 PM [facility] URINALYSIS Specimen Type: URINE No comment entered. Ordering Provider: GIORGIO HENDERSON Report Released Date/Time: Feb 07, 2023 01:16 PM Reporting Lab: [facility] [id number] Performing Lab: [facility] [address] URINE COLOR YELLOW SPECIFIC GRAVITY 1.025 1.003-1.03 [...] NEGATIVE NEGATIVE Feb 07, 2023 09:34 AM [facility] LIVER FUNCTION TESTS Specimen Type: PLASMA Comment: Critical Value Reported To: Dr Brijesh Henderson 02/07/23@[facility]0 GES. Critical value report confirmed. Ordering Provider: GIORGIO HENDERSON Report Released Date/Time: Feb 03, 2023 12:29 PM Reporting Lab: [facility] [address] Performing Lab: [facility] [address] BILIRUBIN, TOTAL 0.4 0.2-1.2 ALKALINE PHOSPHATASE 135 40-150 ALT/SGPT 73 H <55 AST/SGOT 65 H <34 GAMMA GTP 112 H <64 Feb 07, 2023 09:34 AM [facility] HEMOGLOBIN A1C Specimen Type: BLOOD Comment: Values [...] Feb 03, 2023 12:29 PM Reporting Lab: [facility] [address] Performing Lab: [facility] [address] HEMOGLOBIN A1C 4.7 4.0-6.0 Feb 07, 2023 09:34 AM [facility] LIPID PANEL,NON-FASTING Specimen Type: PLASMA Comment: Critical Value Reported To: Dr Brijesh Henderson 02/07/23@1040 GES. Critical value report confirmed. Ordering Provider: GIORGIO HENDERSON Report Released Date/Time: Feb 03, 2023 12:29 PM Reporting Lab: [facility] [address] Performing Lab: [facility] [address] CHOLESTEROL 216 H <199 .HDL 42 >40 LDL CALCULATION 141 H <99 VLDL CALCULATION 33 H <29 NON HDL CHOLESTEROL 174 H <129 TRIG(NON FASTING) 164 H <149 Feb 07, 2023 09:34 AM [facility] COMPREHENSIVE METABOLIC PANEL+MG Specimen Type: PLASMA Comment: Critical Value Reported To: Dr Brijesh Henderson 02/07/23@1040 GES. Critical value report confirmed. Ordering Provider: GIORGIO HENDERSON Report Released Date/Time: Feb 03, 2023 12:29 PM Reporting Lab: [facility] [address] Performing Lab: [facility] [address] CREATININE 1.0 0.7-1.2 UREA NITROGEN 13 8-26 [...] 83 >60 Feb 07, 2023 09:34 AM [facility] CBC & DIFF Specimen Type: BLOOD Comment: Automated Differential Performed Ordering Provider: GIORGIO HENDERSON Report Released Date/Time: Feb 03, 2023 12:29 PM Reporting Lab: [facility] [address] Performing Lab: [facility] [address] WBC 8.15 4.0-11.0 RBC 3.68 L 4.6-6.2 [...] H 0-0.1 Feb 07, 2023 09:34 AM [facility] PTH-N-TACT Specimen Type: PLASMA Comment: Specimen received is PLASMA. Ordering Provider: GIORGIO HENDERSON Report Released Date/Time: Feb 08, 2023 10:50 AM Reporting Lab: [facility] [address] Performing Lab: [facility] [address] PTH-N-TACT 125.6 H 8.7-77.1 Feb 07, 2023 09:34 AM [facility] B 12 Specimen Type: SERUM Comment: Specimen received is PLASMA. Ordering Provider: GIORGIO HENDERSON Report Released Date/Time: Feb 07, 2023 01:16 PM Reporting Lab: [facility] [address] Performing Lab: [facility] [address] B 12 [phone] Feb 07, 2023 09:34 AM [facility] TSH W/REFLEX TO FREE T4 Specimen Type: PLASMA Comment: Specimen received is PLASMA. Ordering Provider: GIORGIO HENDERSON Report Released Date/Time: Feb 07, 2023 01:16 PM Reporting Lab: [facility] [address] Performing Lab: [facility] [address] TSH 7.97 H 0.35-4.94 FREE T4 0.83 [...] /min 94 % 3 249.3 lb 35 [facility] Immunizations: All administered on the encounter date This section contains immunizations associated to the Encounter. Immunization Series Date Issued Reaction Comments INFLUENZA, HIGH-DOSE, QUADRIVALENT Feb 07, 2023 Social History: Smoking Status (Most current) and [...] 21, 2022 10:30 AM VA-TOBACCO FORMER USER [facility] Tobacco Use History This section includes a history of the smoking, or tobacco-related health factors, that were collected on or before the date of the Encounter. The data comes from the [place] facility where the Encounter took place. Date/Time Smoking Status/Tobacco Use Comment F acility May 21, 2022 10:30 AM VA-TOBACCO QUIT 15 YRS OR MORE [facility] Nov 12, 2020 12:00 PM VA-TOBACCO FORMER USER [facility] Nov 12, 2020 12:00 PM VA-TOBACCO QUIT 5 TO < 15 YRS [facility] May 31, 2019 06:22 AM INPT NO TOBACCO USE IN LAST 30 D AYS [facility] Nov 08, 2017 01:55 PM VA-TOBACCO FORMER USER [facility] Nov 08, 2017 01:55 PM VA-TOBACCO QUIT 1 TO < 5 YRS [facility] May 11, 2017 12:43 PM FORMER TOBACCO USE >1Y <7Y [facility] Aug 04, 2016 10:25 AM FORMER TOBACCO USE >1Y <7Y [facility] Aug 04, 2015 11:31 AM FORMER TOBACCO USE <1Y [facility] Aug 13, 2014 10:50 AM CURRENT TOBACCO USER [facility] October 10, 2013 09:12 AM FORMER TOBACCO USER 7Y OR GREATE R [facility] May 26, 2012 10:14 AM CURRENT TOBACCO USER [facility] Nov 19, 2009 12:07 PM CURRENT TOBACCO USER [facility] Advance Directives: All historical and current Section Date Range: From patient's date of to the date document was created. This section includes ALL of a patient's completed or amended [place] Advance and Rescinded Directives. The entries below indicate that a directive exists for the patient, but an actual copy is not included with this document. The data comes from all [place] facilities. Date Advance Directives Provider Source May 11, 2006 ADVANCE DIRECTIVE ASH RAZO [facility] Radiology Reports: +/- 30 days of [...] AM PELVIS JUDET VIEWS (P): CALVIN JAIN [id number] -1955 M Exm Date: FEB 07, 2023@08:33 Req Phys: DAVID CHAVEZ Pat Loc: [facility] (Req'g Loc Img Loc: MAIN X-RAY Service: Unknown (Case [id number] COMPLETE) PELVIS 3 VIEWS OR MORE (RAD Detailed) CPT:64184 Reason for Study: acetabulum fx Clinical History: IS NOT under investigation for COVID-19 or is COVID-19 negative L acetabulum fx Responsible provider name and phone number to notify for critical findings if other than user placing the order and pager listed below: User placing orders pager: [phone] LAST CREATININE 1.0 (11/02/22) Report Status: Verified Date Reported: FEB 07, 2023 Date Verified: FEB 07, 2023 Lead Python Developer E-Sig:/ES/ITA NO MD Report: Exam: Pelvis 2 [...] Primary Interpreting Staff: ITA NO MD, RADIOLOGIST (Lead Python Developer) /ITA CAICEDO [facility] Feb 07, 2023 08:32 AM PELVIS INLET-OUTLE T VIEWS (P): CALVIN JAIN [id number] -1955 M Exm Date: FEB 07, 2023@08:32 Req Phys: DAVID CHAVEZ Pat Loc: [facility] (Req'g Loc Img Loc: MAIN X-RAY Service: Unknown (Case [id number] COMPLETE) PELVIS 3 VIEWS OR MORE (RAD Detailed) CPT:65201 Reason for Study: pelvis fx Clinical History: IS NOT under investigation for COVID-19 or is COVID-19 negative pelvis fx Responsible provider name and phone number to notify for critical findings if other than user placing the order and pager listed below: User placing orders pager: [phone] LAST CREATININE 1.0 (11/02/22) Report Status: Verified Date Reported: FEB 07, 2023 Date Verified: FEB 07, 2023 Lead Python Developer E-Sig:/[email or web address]/ITA NO MD Report: Exam: Pelvis 3 views, [...] Primary Interpreting Staff: ITA NO MD, RADIOLOGIST (Lead Python Developer) /ITA CAICEDO [facility] Pathology Reports: +/- 30 days of the [...] comes from all [place] treatment facilities. Date/Time Pathology Report Provider Source Feb 07, 2023 02:01 PM LR MICROBIOLOGY RE PORT: Reporting Lab: [facility] [CLIA# [id number]] [place] [address] Accession [UID]: [id number] [[id number]] Received: Feb 07, 2023@14:01 Collection sample: URINE Collection date: Feb 07, 2023 14:01 Provider: BRIJESH HENDERSON Comment on specimen: RECEIVED IN URINE PRESERVATIVE TUBE Test(s) ordered: CULTURE & SUSCEPTIBILITY...... completed: Feb 08, 2023 * BACTERIOLOGY FINAL REPORT => Feb 08, 2023 10:17 TECH CODE: [id number] CULTURE RESULTS: LESS THAN 10,000 CFU/ML Bacteriology Remark(s): THIS REPORT IS FINAL =--=--=--=--=--=--=--=--=--=--=--=- -=--=--=--=--=--=--=--=--=--=--=--= --=--=-- Performing Laboratory: Bacteriology Report Performed By: [facility] [CLIA# [id number]] [place] [address] [facility] Encounter Notes: All associated encounter notes This section contains the clinical notes associated to the Encounter. Date/Time Encounter Note(s) Provider Source Feb 23, 2023 05:42 PM LETTERS: LOCAL TITLE: FOLLOW UP RESULTS LETTER STANDARD TITLE: LETTERS DATE OF NOTE: FEB 23, 2023@17:42 ENTRY DATE: FEB 23, 2023@17:42:08 AUTHOR: LIA HENDERSON EXP COSIGNER: URGENCY: STATUS: COMPLETED [facility] [place] [address] [place] [address] Feb CALVIN JAIN [address] [place] [id number] Dear : Thank you for your 02/07/23 12:00 Primary Care Appointment. I am writing to provide your test results. LABORATORY REPORTS: Laboratory tests are normal unless designated with H for Higher than normal or L for Lower than normal. - Cholesterol Tests: See cholesterol goals: (total) CHOLESTEROL 216 H (02/07/23) (goal < 200) TRIGLYCERIDE____ (goal < 150) (good chol) HDL 42 (02/07/23) (goal > 40) (bad chol) LDL CALCULATION 141 H (02/07/23) (goal < 100) (bad chol) MEASURED LDL____ (goal < 100) * To follow a heart-healthy diet (and lower LDL) eat 30 grams of fiber daily: - > 6 servings per day of fresh fruits, vegetables and whole grains - > Eat a low fat diet (eliminate fast food and saturated fats) * To lower Triglycerides, cut back or stop Alcohol use and eliminate high fructose corn syrup from your diet. Of course reduce sweets, sugar pop, and simple carbs - ie, white rice and pasta and replace with brown or wild rice and whole wheat products and complex carbs such as whole fruits and vegetables. * Increasing your daily exercise naturally increases HDL level (good cholesterol). - Electrolytes: normal SODIUM 140 (02/07/23) 136 - 145 POTASSIUM 3.8 (02/07/23) 3.5 - 5.1 CALCIUM 7.7 L (02/07/23) 8.5 - 10.1 MAGNESIUM 1.0 L* (02/07/23) 1.8 - 2.4 - Kidney function: normal CREATININE 1.0 (02/07/23) 0.7 - 1.2 FLOW RATE EGFR (12/17) 03/31/21 @ 0954 85 CREATININE EGFR (CKD-EPI) 02/07/23 @ 0934 83 Ref: >=60 - Test for (protein) nutrition: normal ALBUMIN 3.8 (02/07/23) 3.4 - 5.0 - Liver enzyme tests: normal AST/SGOT 65 H (02/07/23) 15 - 37 ALT/SGPT 73 H (02/07/23) 12 - 78 ALK PHOSPHATASE 135 (02/07/23) 50 - 136 BILIRUBIN, TOTAL 0.4 (02/07/23) 0.2 - 1.0 - Blood sugar: GLUCOSE 99 (02/07/23) < 106 when Fasting - HEMOGLOBIN A1C: (90 day) Diabetes Test: Diabetes A1C goal < 7.0 HEMOGLOBIN A1C 4.7 (02/07/23) < 5.7 Normal 5.7 - 6.5 Pre-Diabetes > 6.5 Diabetes * Pre-diabetes is managed by weight loss and dietary changes. Weight loss to goal BMI 25.0 is beneficial to prevent Diabetes. - Healthy eating habits information is available at the Patient Education Center, Room 1S-134 [phone ] - Thyroid test: normal TSH 7.97 H (02/07/23) 0.3 - 5.0 FREE T4 0.83 (02/07/23) 0.76 - 1.46 - Complete Blood Cell count: normal White Cells WBC 8.15 (02/07/23) 4.0 - 11.0 Red Cells 4.6 - 6.2 Hemoglobin HGB 12.3 L (02/07/23) 13.5 - 17.9 Platelets PLT 392 (02/07/23) 150 - 400 We plan to repeat some of your blood tests on 03/11/23. FUTURE APPOINTMENTS: FEB 24, 2023@10:15 Clinic: [facility] [id number] MAR 11, 2023@12:00 Clinic: [facility] LAB BLOOD DRAW 4C MAR 11, 2023@13:30 Clinic: [facility] PACT GRAPE PD WH 4D MAR 28, 2023@10:00 Clinic: [facility] MRI AM CLINIC MAR 30, 2023@08:30 Clinic: [facility] ULTRASOUND AM MAR 30, 2023@09:00 Clinic: [facility] CT NON-CONTRAST AM A Primary Care appt is planned once yearly to stay enrolled in primary care. You should be contacted by the [place] [facility] as a reminder to schedule. The [facility] line is [phone] [press 4 for Attendant]. Please call if you have any questions or concerns. Thank you for choosing [facility] for your Primary Care. Sincerely, BRIJESH HENDERSON MD Staff Physician BRIJESH HENDERSON [facility] Feb 07, 2023 12:06 PM INTERNAL MEDICINE OUTPATIENT NOTE: LOCAL TITLE: MEDICINE CLINIC NURSING NOTE STANDARD TITLE: INTERNAL MEDICINE OUTPATIENT NOTE DATE OF NOTE: FEB 07, 2023@12:06 ENTRY DATE: FEB 07, 2023@12:06:41 AUTHOR: DELLA MENON EXP COSIGNER: URGENCY: STATUS: COMPLETED MEDICINE CLINIC NURSING NOTE Has ADDENDA TYPE OF VISIT: Appointment Check In Type of appointment: In-person appointment REASON FOR VISIT: FOLLOW UP ED ALLERGIES: PENICILLIN (Nov 19, 2009) ZOLPIDEM (Dec 26, 2014) KENALONE INJECTION (40 MG/ML) (Oct 26, 2018) VITAL SIGNS: Blood Pressure: 122/85 (02/07/2023 12:00) Pulse: 102 (02/07/2023 12:00) Respiration: 16 (02/07/2023 12:00) Temperature: 97.7 F [36.5 C] (02/07/2023 12:00) Weight: 249.3 lb [113.08 kg] (02/07/2023 12:00) Height: 70.5 in [179.1 cm] (10/04/2022 15:11) BMI: 35.3 O2 Sat: 94% (02/07/2023 12:00) Pain: 3 (02/07/2023 12:00) PAIN SCREEN: Patient is having significant pain that they would like to talk to their provider about today. Old (Chronic) (began more than 6 months ago) Patient states their average pain this past week is 3 Patient states the average number on how the chronic pain affects their enjoyment of life the past week is 3 Patient states during the past week the average number on how the pain has interfered with their general activity is 3 Homelessness/Food Insecurity Screen: In the past 2 months, have you been living in stable housing that you own, rent, or stay in as part of a household? Yes - Living in stable housing. Are you worried or concerned that in the next 2 months you may NOT have stable housing that you own, rent, or stay in as part of a household? No - Not worried about housing near future The reports the following: Within the past 12 months, you worried whether your food would run out before you got money to buy more. Never true Within the past 12 months, the food you bought just didn't last and you didn't have money to get more. Never true Food Insecurity Resources /es/ DELLA MENON LPN, LPN Signed: 02/07/2023 12:08 02/07/2023 ADDENDUM STATUS: COMPLETED Influenza Immunization: The patient was given the influenza VIS which lists the benefits and side effects of the vaccine and which reviews the risks of not receiving the flu vaccine. The VIS was reviewed with the patient and they were given an opportunity to ask questions. The patient was provided education on how to decrease the risk of influenza infection including social distancing and use of good hand hygiene. The patient denied any prior severe reaction to the flu vaccine or its components. The patient gave verbal consent to receive the vaccine. Influenza, High Dose, Quadrivalent (Fluzone - syringe) Administered: INFLUENZA, HIGH-DOSE, QUADRIVALENT Date Administered: Feb 07, 2023 12:00 Pan Puller: SANOFI PASTEUR Lot: [id number] Exp Date: Nov 13, 2023 [facility]: [phone] Admin Route/Site: INTRAMUSCULAR/LEFT DELTOID Dosage: 0.7mL Vaccine Information Statement(s): INFLUENZA(FLU) VACC(INACTIVATED OR RECOMBINANT)VIS Dec 19, 2020 ([facility]ZE[facility]) Order By: Policy Administered By: Marni Sanchez EDUCATION: PARTICIPANT(s): Clean Catch Urine Instructed in collection of clean catch urine. Printed instructions provided and participant(s) is able to repeat these instructions accurately. Urinalysis and urine culture sent to lab /es/ MARNI SANCHEZ LOGGING TRACTOR OPERATOR SWAMP Signed: 02/07/2023 13:44 DELLA MENON [facility] Feb 07, 2023 08:53 AM INTERNAL MEDICINE NOTE: LOCAL TITLE: MEDICINE CLINIC NOTE STANDARD TITLE: INTERNAL MEDICINE NOTE DATE OF NOTE: FEB 07, 2023@08:53 ENTRY DATE: FEB 08, 2023@08:53:49 AUTHOR: LIA HENDERSON EXP COSIGNER: URGENCY: STATUS: COMPLETED Allergies: PENICILLIN (Nov 19, 2009) ZOLPIDEM (Dec 26, 2014) KENALONE INJECTION (40 MG/ML) (Oct 26, 2018) Assessment/Plan: # vomiting/ EtOH abuse: vet has been sober since being admitted to hosp on 01/31. vomiting resolved in hosp, likely related to EtOH. we discussed support options. - vet planning to join in [place] - start naltrexone 50mg - plan to rpt LFTs in 1 mo - f/u w/ MH on 02/24 - thiamine/ folate - liver Doppler U/S in 1 mo - f/u in my clinic # severe hypomagnesemia: Mg++ 1.0. likely related to EtOH. K+ ok. - got 2g Mg SoO4 infusion at infusion clinic - start oral MgOx 420 QHS - rpt Mg++ in one mo # urinary urgency: normal UA. possibly related to BPH, but will re-eval at next visit. # macrocytic anemia: likley related to EtOh's effects on bone marrow. Hgb dipped to 12.3. normal vit B12. slightly elevated TSH. - rpt CBC w/ diff + SPEP/ iron studies in 1 mo - vet will contact us if melena or hematochezia # hx pelvic fracture/ multiple vertebral fractures: left anterior column posterior acetabular fracture, bilateral superior and inferior pubic rami fracture and T8/T11/L2/L3 endplate fractures. qualifies for empiric treatment for osteoporosis. no sx of radiculopathy. not painful any longer. [place] at the [place] commented that f/u x-rays on 12/10 show normal healing. nornmal testosterone, vit D. DEXA normal. - Neurosurgery f/u - alendronate # hypocalcemia: corrected for alb 3.8 -> 7.9, which is below LLN of 8.4. hypomag can lead to reduced PTH secretion. alendronate probably contributing. EKG at [facility] showed sinus tach and non-specific ST abnormality. - add on PO4- and PTH - plan to supp w/ CaCO3 if above normal - recheck in 1 mo # HTN: BP low on lisinopril in the past. - hydrochlorothiazide 25 mg daily # barbituate in UDS: vet denies use prior to ER visit. no sucidal intent noted. # depression: vet feels that sx are improving. 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 - MgrF: young of ? - MGrM: at 94 History of Present Illness: vomiting/ EtOH abuse: he became dizzy and couldn't get to the bathroom, when he was incontinent of urine. he had several falls over the few days prior to admission. vet noticed that he couldn't urinate. he finally called EMS. came to [facility]. vet endorsed drinking 1.75L of liquor each day for 2 wks prior to admission. he has never been treated for an EtOH use disorder in the past. he states that, since his pevic fracture in 07/2022, he has been depressed. this led to him drinking heavily, in part to control pain. admitted to [facility] on 9/18. no evidence of infection was found. hospitalist felt that the vomiting was, in part related to EtOH use. neg for COVID-19/ flu/ RSV. blood cul neg. normal UA. Mg++ normal. Cr 1.1. HCO3- 26 on VBG w/ pH 7.49. lactate normal. UDS pos for barbituates. CT-A a/p showed severe diffuse hepatic steatosis. urinary urgency: no dysuria, hematuria or fevers. mild incontinence. pelvic/ vertebral fractures: fell down stairs at home while intoxicated and was admitted to [facility] on 08/07/22. no loss of conciousness. He was transferred to [facility]. He was noted to have a GCS [...] no numbness or weakness in his legs. Past medical history/Active Problems: Active Problems: Osteoarthritis of knee ([facility] [id number]) Primary Obesity (ICD-9-CM 278.00) Screening for Ischemic Heart Disease (ICPrimary insomnia (ICD-9-CM 780.52) Low back pain ([facility] [id number]) Sacroiliitis (ICD-9-CM 720.2) Tobacco Use Disorder, Continuous ([id number] Hearing Loss, Bilateral (ICD-9-CM 389.18) Pseudogout (ICD-9-CM 275.49) Hyperlipidemia ([facility] [id number]) Obstructive Sleep Apnea (Adult) (PediatrDepression (ICD-9-CM 311.) Cataract nos (ICD-9-CM 366.9) 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) Compression fracture of thoracic spine (PAIN, NECK/CERVICALGIA (ICD-9-CM 723.1) Posttraumatic stress disorder ([facility] 67511Ectn pain ([facility] [id number]) OEF/OIF EXPOSURE TO BURN PIT SMOKE (ICD-OEF/OIF EXPOSURE TO SANDSTORMS/DUSTSTORMS (ICD-10-CM R69.) Dyspnea on exertion (SCT 07256336) Dyspnea on exertion (SCT 46749731) Pain radiating to right side of chest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
--- OUTSIDE RECORDS SUMMARY | 2023-09-23 17:14 | XMS_ITS | Encounter Summary ---
Author Name [employer] Organization [employer] [facility] [employer] Address [address] [place] [address] Support Name Relationship Address Phone MARIBELL, VITO Next of Kin [address] [place] [address] MARIBELL, VITO Emergency Contact [address] [place] [address] Insurance Providers: All historical and [...] Hurt's Name Patient's Relationship to Policy Hurt [facility] (WNR) MEDICARE ADVANTAGE [facility] (WNR) May 16, 2023 [id number] JEAN JAIN IN PATIENT Selected Encounter This section includes the information on record at [place] for the Encounter. Date/Time Encounter Type Encounter Description Reason Provider Source Jun 02, 2023 11:00 AM OFFICE O/P EST HI 40 MIN PRIMARY CARE/MEDICINE ICD-10-CM M06.4 Inflammatory polyarthropathy GIORGIO HENDERSON MIN E I[facility] Encounter Template Text not used by [place] Assessments - Encounter Diagnoses This section includes the primary and secondary diagnoses documented for the Encounter. Date/Time Primary/Secondary Diagnosis Diagnosis Name Provider Source Jun 02, 2023 06:21 PM PRIMARY Inflammatory polyarthropathy GIORGIO HENDERSON MIN E [facility] Jun 02, 2023 06:21 PM SECONDARY Alcohol abuse, uncomplicated RAUDEL HENDERSONA MIN E [facility] Jun 02, 2023 06:21 PM SECONDARY Encounter for immunization ASHLEE HOLLOWAY [facility] Jun 02, 2023 06:21 PM SECONDARY Essential (primary) hypertension RICKIE ZEESHANMANISHAGIORGIO [facility] Jun 02, 2023 06:21 PM SECONDARY Mixed hyperlipidemia RICKIE ZEESHANMANISHAGIORGIO [facility] Jun 02, 2023 06:21 PM SECONDARY Pain in left hip RICKIE MARGAGIORGIO [facility] Jun 02, 2023 06:21 PM SECONDARY Post-traumatic stress disorder, unspecified RICKIE MARGAGIORGIO [facility] Jun 02, 2023 06:21 PM SECONDARY Unilateral primary osteoarthritis, unspecified knee RICKIE MARGAGIORGIO [facility] Jun 02, 2023 06:21 PM SECONDARY Wedge compression fracture of T7-T8 vertebra, init OPA LOCKA RAUDEL [facility] Plan of Treatment: Future Appointments (+ 6 months) and Future Tests (+/- 45 days) The Plan of Treatment section includes future care activities for the patient [facility] This section includes future appointments and future orders which are active, pending or scheduled. Future Appointments This section includes appointments that were scheduled to occur 6 months from the date of the Encounter, up to a maximum of 20 appointments. The data comes from all [facility]. Appointment Date/Time Appointment Type Appointme nt Facility Name Jul 05, 2023 08:30 AM AMBULATORY - REHAB [facility] Jul 07, 2023 10:00 AM AMBULATORY - MEDICINE [facility] Jul 07, 2023 11:00 AM AMBULATORY - MEDICINE [facility] Jul 21, 2023 08:30 [facility] Jul 21, 2023 08:45 AM [facility] Jul 21, 2023 09:15 AM AMBULATORY [place] [facility] Aug 01, 2023 08:00 AM AMBULATORY - SURGERY [facility] Aug 09, 2023 10:30 AM AMBULATORY - REHAB MEDICIN [facility] Aug 22, 2023 11:15 AM AMBULATORY [place]AT[place] [facility] Aug 30, 2023 02:00 PM [facility] Aug 31, 2023 04:15 PM AMBULATORY - SURGERY [facility] Sep 08, 2023 09:30 AM AMBULATORY - NONE [facility] Sep 08, 2023 10:30 AM AMBULATORY - REHAB MEDICIN E [facility] September 22, 2023 10:39 AM AMBULATORY - MEDICINE [facility] September 27, 2023 10:30 AM AMBULATORY - PSYCHIATRY [facility] Nov 10, 2023 07:15 AM AMBULATORY - MEDICINE [facility] Nov 10, 2023 07:30 AM AMBULATORY - MEDICINE [facility] Active, Pending, and Scheduled Orders This section includes a listing of several types of active, pending, and scheduled orders, including clinic medications orders, diagnostic test orders, procedure orders and consult orders; where the start date of the order is 45 days before the date of the Encounter or 45 days after the date of theEncounter. The data comes from all [place] treatment facilities. Test Date/Time Test Type Test Details Facility Name Jun 02, 2023 06:24 PM Consult Order GASTROENTE ROLOGY OUTPT Cons Pot Operator's Choice [facility] Lab Results: +/- 30 days of the encounter This section includes the Chemistry and Hematology Lab Results on record with [place] for the patient. Radiology Reports and Pathology Reports are provided separately, in subsequent sections. Lab Results This section contains the Chemistry/Hematology Results that were resulted 30 days before or 30 daysafter the date of the Encounter. Date/Time Source Result Type Result - Unit Interpretation Reference Range Comment Jun 02, 2023 11:53 AM [facility] TSH W/REFLEX TO FREE T4 Specimen Type: PLASMA No comment entered. Ordering Provider: GIORGIO HENDERSON Report Released Date/Time: Jun 02, 2023 10:54 AM Reporting Lab: [facility] [id number] Performing Lab: [facility] [address] TSH 5.34 H 0.35-4.94 FREE T4 0.90 0.70-1.48 Jun 02, 2023 11:53 AM [facility] IRON GROUP Specimen Type: SERUM No comment entered. Ordering Provider: GIORGIO HENDERSON Report Released Date/Time: Jun 02, 2023 10:55 AM Reporting Lab: [facility] [address] Performing Lab: [facility] [address] IRON 372 H 65-175 TIBC,CALCULATED 439 H 250-425 FERRITIN 162.2 21.8-274.7 IRON SATURATION 85 H 20-50 TRANSFERRIN [phone] Jun 02, 2023 11:53 AM [facility] ELP/IMMFIX,SERUM PANEL Specimen Type: SERUM No comment entered. Ordering Provider: GIORGIO HENDERSON Report Released Date/Time: Jun 02, 2023 10:55 AM Reporting Lab: [facility] [address] Performing Lab: [facility] [address] PROTEIN,TOTAL 7.8 6.0-8.3 .ALBUMIN FRACTION 4.46 3.66-4.78 .ALPHA 1 FRACTION 0.36 0.14-0.38 .ALPHA 2 FRACTION 0.82 0.50-0.90 .BETA 1 FRACTION 0.62 H 0.33-0.55 .BETA 2 FRACTION 0.46 0.20-0.52 .GAMMA FRACTION 1.08 0.58-1.72 .TOTAL PROTEIN 7.8 6.0-8.3 .INTERPRETATION NO MONOCLONALS DETECTED Jun 02, 2023 11:53 AM [facility] CBC & DIFF Specimen Type: BLOOD Comment: Automated Differential Performed Ordering Provider: GIORGIO HENDERSON Report Released Date/Time: Jun 02, 2023 10:55 AM Reporting Lab: [facility] [address] Performing Lab: [facility] [address] WBC 11.09 H 4.0-11.0 RBC 4.91 4.6-6.2 HGB 16.5 13.5-17.9 HCT 48.7 41-54 MCV 99.2 80-100 MCH 33.6 H 27-33 MCHC 33.9 32.0-37.5 PLT 211 150-400 MPV 9.1 7.4-10.4 NEUT 68.6 40.0-80.0 LYMPHS 18.7 15.0-45.0 MONO 9.9 2.0-12.0 EOSINO 1.5 0.0-6.0 BASO 0.8 0.0-2.0 RDW 13.3 11.5-14.5 ABS LYMPH 2.07 1.0-4.0 ABS MONO 1.10 H 0.1-1.0 ABS NEUT 7.60 2.0-7.7 ABS EOS 0.17 0-0.5 ABS BASO 0.09 0-0.2 IG(META,MYELO,P RO) 0.5 ABS IMMATURE GRAN 0.06 0-0.1 IPF 2.2 0-10 Jun 02, 2023 08:41 AM [facility] METHYLMALONIC ACID Specimen Type: PLASMA No comment entered. Ordering Provider: GIORGIO HENDERSON Report Released Date/Time: Jun 02, 2023 02:31 PM Reporting Lab: [facility] [address] Performing Lab: [facility] [address] METHYLMALONIC ACID 229 0-400 Jun 02, 2023 08:41 AM [facility] COMPREHENSIVE METABOLIC PANEL+MG Specimen Type: PLASMA No comment entered. Ordering Provider: GIORGIO HENDERSON Report Released Date/Time: Feb 08, 2023 11:06 AM Reporting Lab: [facility] [address] Performing Lab: [facility] [address] CREATININE 1.1 0.7-1.2 UREA NITROGEN 10 8-26 GLUCOSE 97 70-100 SODIUM 138 136-145 POTASSIUM 3.9 3.5-5.1 CHLORIDE 98 98-107 CO2 26 22-29 CALCIUM 9.7 8.4-10.2 PROTEIN,TOTAL 7.9 6.0-8.3 ALBUMIN 4.6 3.5-5.2 BILIRUBIN, TOTAL 1.6 H 0.2-1.2 MAGNESIUM 1.5 L 1.6-2.6 ANION GAP 14 5-15 ALKALINE PHOSPHATASE 127 40-150 ALT/SGPT 27 <55 AST/SGOT 35 H <34 .CREAT EGFR(CKD-EPI) 74 >60 DIR. BILIRUBIN 0.6 H <0.5 Jun 02, 2023 08:41 AM [facility] B 12 Specimen Type: SERUM Comment: Specimen received is PLASMA. Ordering Provider: GIORGIO HENDERSON Report Released Date/Time: Jun 02, 2023 11:28 AM Reporting Lab: [facility] [address] Performing Lab: [facility] [address] B 12 [phone] Jun 02, 2023 08:41 AM [facility] LIPID PANEL,FASTING Specimen Type: PLASMA No comment entered. Ordering Provider: GIORGIO HENDERSON Report Released Date/Time: Jun 02, 2023 11:30 AM Reporting Lab: [facility] [address] Performing Lab: [facility] [address] CHOLESTEROL 209 H <199 TRIGLYCERIDE 107 <149 .HDL 82 >40 LDL CALCULATION 106 H <99 VLDL CALCULATION 21 <29 NON HDL CHOLESTEROL 127 <129 Vital Signs: All taken on the encounter date This section contains inpatient and outpatient Vital Signs collected on the date of the Encounter. Date/Time Temperature Pulse Blood Pressure Respiratory Rate SP02 Pain Height Weight Body Mass Index Source Jun 02, 2023 10:48 AM 97.3 F 91 /min 131/88 mm[Hg] 18 /min 95 % 0 70.5 in 255 lb 36 [facility] Immunizations: All administered on the encounter date This section contains immunizations associated to the Encounter. Immunization Series Date Issued Reaction Comments COVID-19 ([employer]), MRNA, LNP -S, PF, MELISA-SUCROSE, 30 MCG/0.3 ML (AGES 12+ YEARS) 1 Jun 02, 2023 Social History: Smoking Status (Most current) and Tobacco Use (All prior to encounter date) This section includes the most current, and the historical, smoking and tobacco- related health factors from the [place] facility where the Encounter took place. Current Smoking Status This section includes the most current smoking, or tobacco-related health factor, from the [place] facility where the Encounter took place. Date/Time Current Smoking Status Comment Nigel terrazas Jun 02, 2023 11:00 AM VA-TOBACCO FORMER USER [facility] Tobacco Use History This section includes a history of the smoking, or tobacco-related health factors, that were collected on or before the date of the Encounter. The data comes from the [place] facility where the Encounter took place. Date/Time Smoking Status/Tobacco Use Comment Ramses baldwin Jun 02, 2023 11:00 AM VA-TOBACCO QUIT 5 TO < 15 YRS [facility] May 21, 2022 10:30 AM VA-TOBACCO FORMER USER [facility] May 21, 2022 10:30 AM VA-TOBACCO QUIT 15 YRS OR MORE [facility] Nov 12, 2020 12:00 PM VA-TOBACCO FORMER USER [facility] Nov 12, 2020 12:00 PM VA-TOBACCO QUIT 5 TO < 15 YRS [facility] May 31, 2019 06:22 AM INPT NO TOBACCO USE IN LAST 30 D AYS [facility] Nov 08, 2017 01:55 PM VA-TOBACCO FORMER USER [facility] Nov 08, 2017 01:55 PM VA-TOBACCO QUIT 1 TO < 5 YRS [facility] May 11, 2017 12:43 PM FORMER TOBACCO USE >1Y <7Y [facility] Aug 04, 2016 10:25 AM FORMER TOBACCO USE >1Y <7Y [facility] Aug 04, 2015 11:31 AM FORMER TOBACCO USE <1Y [facility] Aug 13, 2014 10:50 AM CURRENT TOBACCO USER [facility] October 10, 2013 09:12 AM FORMER TOBACCO USER 7Y OR GREATE R [facility] May 26, 2012 10:14 AM CURRENT TOBACCO USER [facility] Nov 19, 2009 12:07 PM CURRENT TOBACCO USER [facility] Advance Directives: All historical and current Section Date Range: From patient's date of to the date document was created. This section includes ALL of a patient's completed or amended [place] Advance and Rescinded Directives. The entries below indicate that a directive exists for the patient, but an actual copy is not included with this document. The data comes from all [facility]. Date Advance Directives Provider Source May 11, 2006 ADVANCE DIRECTIVE ASH RAZO [facility] Radiology Reports: +/- 30 days of [...] the Encounter. The data comes from all [place] treatment facilities. Date/Time Radiology Report Provider Source Jun 02, 2023 12:04 PM HIPS BILATERAL 2 VIEWS W/AP PELVIS: SUSYCALVINMICHAEL SALDAÑA [id number] -[id number] M Exm Date: JUN 02, 2023@12:04 Req Phys: BRIJESH HENDERSON Loc: [facility] 4D (Req'g Img Loc: MAIN X-RAY Service: Unknown (Case [id number] COMPLETE) HIPS BILATERAL 2 VIEWS W/AP PELVI(RAD Detailed) CPT:61956 Reason for Study: left hip pain Clinical History: [place] IS NOT under investigation for COVID-19 or is COVID-19 negative chronic left hip and low back pain 2/2 healing fractures Responsible provider name and phone number to notify for critical findings if other than user placing the order and pager listed below: User placing orders pager: [phone] LAST CREATININE 1.1 (06/02/23) Report Status: Verified Date Reported: JUN 02, 2023 Date Verified: JUN 02, 2023 [employer] E-Sig:/ES/JANETH OROZCO DO Report: EXAMINATION: HIPS BILATERAL 2 VIEWS W/AP PELVIS Reason for Study: left hip pain [place] IS NOT under investigation for COVID-19 or is COVID-19 negative chronic left hip and low back pain 2/2 healing fractures Responsible provider name and phone number to notify for critical findings if other than user placing the order and pager listed below: User placing orders pager: [phone] LAST CREATININE 1.1 (06/02/23) left hip pain TECHNIQUE: AP pelvis, AP and frog-leg lateral radiographs of both hips COMPARISON: 12/02/2022 FINDINGS: Penetration and bone detail are limited by soft tissues thickness. Right femoral head is enlocated. Sphericity is preserved. Minimal osteophyte formation. Cortices of the proximal right femur are intact. Trabecular pattern is undisturbed. No suspicious lytic or sclerotic process. Left femoral head is enlocated. Slightly flattened, dysmorphic appearance with possible subcortical radiolucency in the superior portion of the epiphysis. Cortices of the remainder of the proximal left femur are intact. Asymmetric joint space loss of the left acetabulofemoral joint and osteophytes, greater than on the right. Sclerosis and lucency of the left acetabulum and deviated contour of the iliopectineal line consistent with healed or healing fracture, not significantly changed. Unchanged alignment and position of the right superior and bilateral inferior pubic rami fractures. Impression: No significant change in appearance of the healing pelvic fractures. 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 This appearance may be artifactual and due to summation artifact with the healed or healing acetabular fracture. Consider cross-sectional imaging for further evaluation. Primary Interpreting Staff: JANETH OROZCO DO, RADIOLOGIST ([employer]) /JANETH RASHEED [facility] Jun 02, 2023 12:04 PM LUMBAR SPINE MIN 4 VIEWS: CALVIN JAIN [id number] -[id number] M Exm Date: JUN 02, 2023@12:04 Req Phys: BRIJESH HENDERSON Pat Loc: [facility] 4D (Req'g Img Loc: MAIN X-RAY Service: Unknown (Case [id number] COMPLETE) LUMBAR SPINE MIN 4 VIEWS (RAD Detailed) CPT:13226 Proc Modifiers : Standing Reason for Study: low back pain Clinical History: [place] IS NOT under investigation for COVID-19 or is COVID-19 negative Standing AP, Standing Lat, Standing L5/S1 Lat, [place]. chronic left hip and low back pain 2/2 healing fractures Responsible provider name and phone number to notify for critical findings if other than user placing the order and pager listed below: User placing orders pager: [phone] LAST CREATININE 1.1 (06/02/23) Report Status: Verified Date Reported: JUN 02, 2023 Date Verified: JUN 02, 2023 [employer] E-Sig:/ES/KARIN ANDREW MD Report: EXAMINATION: 4 views lumbar spine CLINICAL HISTORY: Low back pain. Chronic left hip and low back pain. Healing fractures. COMPARISON FILMS: Previous dated 02/07/2023, 12/10/2022, 10/04/2022, 08/07/2018. CT chest dated 04/27/2023. Impression: 1. Severe central joint space narrowing involving the left hip with possible widening of the left acetabular cup progressed since 12/10/2022, 10/04/2022 and 08/07/2018. Old healed fractures involving the inferior pubic rami bilaterally. Question lucency versus partially healed/nonunited fracture involving the left acetabular roof and lateral aspect of the left superior pubic ramus. CT pelvis suggested to better evaluate this finding. 2. No acute bony abnormalities the lumbar spine. 5 lumbar type vertebral bodies with a levoscoliosis of the lumbar spine most pronounced at L5-S1 and not significantly changed. Central compression fractures involving the L2, L3 vertebral bodies not significantly changed. Increase sclerosis and anterior wedging involving the superior endplate of T11 unchanged compared to CT chest dated 05/02/2023. Minimal retrolisthesis of L2 on L3 and L3 on L4 likely chronic and unchanged Multilevel degenerative disc disease with endplate spurring and endplate sclerosis otherwise present throughout the lumbar spine not significantly changed. Moderate to severe facet degenerative changes most pronounced in the lower lumbar spine and not significantly changed. Primary Interpreting Staff: KARIN ANDREW MD, RADIOLOGIST ([employer]) /KARIN AGUIRRE [facility] Encounter Notes: All associated encounter notes This section contains the clinical notes associated to the Encounter. Date/Time Encounter Note(s) Provider Source Jun 02, 2023 11:11 AM INTERNAL MEDICINE NOTE: LOCAL TITLE: MEDICINE CLINIC NOTE STANDARD TITLE: INTERNAL MEDICINE NOTE DATE OF NOTE: JUN 02, 2023@11:11 ENTRY DATE: JUN 02, 2023@11:11:19 AUTHOR: LIA HENDERSON EXP COSIGNER: URGENCY: STATUS: COMPLETED Allergies: PENICILLIN (Nov 19, 2009) ZOLPIDEM (Dec 26, 2014) KENALONE INJECTION (40 MG/ML) (Oct 26, 2018) Assessment/Plan: # EtOH abuse: vet had been sober since being admitted to hosp on 01/31/23, alcohol-related issues. now back to drinking a few per wk. didn't tolerate the natrexone due to 'upset stomach'. fatty infiltration if liver U/S. AST only mildly elevated at this point. - naltrexone 50mg - take w/ food - f/u w/ MH - thiamine/ folate - f/u in my clinic # hx pelvic fracture/ multiple vertebral fractures: left anterior column posterior acetabular fracture, bilateral superior and inferior pubic rami fracture and T8/T11/L2/L3 endplate fractures. qualifies for empiric treatment for osteoporosis. no sx of radiculopathy. Neurosurgery here at the [facility] commented that f/u x-rays on 12/10 show normal healing. nornmal testosterone, vit D. DEXA normal. today's left hip x-ray shows findings of left hip osteonecrosis. otherwise, there is normal healing of fractures. - alendronate - CT left hip - Ortho f/u # hx severe hypomagnesemia: Mg++ 1.0 in 01/2023. related to EtOH. now nearly corrected. - oral MgOx 420 QHS # NAFLD: AST now only minimally elevated since he reduce EtOH sig. normal plts. no exam features of liver cirrhosis. elevated transferrin sat concerning fro hereditary hemochromatosis, but LFTs normal and iron studies normal in past. - monitor LFTs # foot numbess/ vit B12 def: possibly related to vit B12 def. - MMG pending - vit B12 supp - EMG # GERD: No new symptoms, but has regurg sx and possible hiatal hernia on CT. - EGD - continue PPI # tremor: appears most consistent w/ intention tremor, but there was also a pill-rolling tremor. hx of falls and peripheral neuropathy. liklely EtOh related. - Neuro referral # urinary urgency: normal UA. possibly related to BPH, but vet not interested in taking meds for this. also, tamsulosin would lead to increased falls risk. # hx macrocytic anemia: likley related to EtOh's effects on bone marrow. Hgb dipped to 12.3. slightly elevated TSH. now appears to have developed vit B12 deficiency, although that wasn't the case in 01/2023. normal/ elevated iron studies. - SPEP # HTN: BP low on lisinopril in the past. - hydrochlorothiazide 25 mg daily # barbituate in UDS: vet denies use prior to ER visit. no sucidal intent noted. # depression: vet feels that sx are improving. - f/u w/ Psych - vortioxetene/ bupropion # lung nodule: - CT chest f/u in 03/2024 # s/p bilat TKA: recovered well from both, initially, but continues to have pain. not using meds. CRP and WCC normal. x-rays w/o loosening. # palpitations: zio mon neg in 2022. # inflammatory symmetric small joint synovitis: Has been treated with prednisone, methotrexate, and Plaquenil. doing well back on plaquenil. not remembering to take MTX, so stopped. - Plaquenil - Follow-up with rheumatology # chronic low back pain: Could be related to lumbar canal stenosis. Chronic lumbar radiculopathy in the right leg, clinically. MRI would help to rule this out. He is unable to participate in physical therapy due to the small joint synovitis. MRI showed severe lumbar central canal stenosis. had SAÚL in 2019, which helped. - NSAIDs when necessary # KAREL: Continue CPAP # ED: Viagra helping. Could be related to age-related change. - Continue Viagra when necessary # colon polyps: Had colonoscopy in 2015 which showed adenomatous polyp. due to return in 2020 but not completed. - GI referral # obesity: has managed to lose weight. LFTs normal. - topiramate 100 BID # HLP: CV event risk 15%. LDL 106. - cont simvastatin 20 # health maintenance screening: had COVID-19 vacc. UTD on vacc. AAA screening neg. 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 - MgrF: young of ? - MGrM: at 94 History of Present Illness: EtOH abuse: last yr, he became dizzy and couldn't get to the bathroom, when he was incontinent of urine. he had several falls over the few days prior to admission. he finally called EMS. came to [place] [facility]. vet endorsed drinking 1.75L of liquor each day for 2 wks prior to that admission. currently, he drinks 2-3 drinks per week. UDS pos for barbituates. pelvic/ vertebral fractures: fell down stairs at home while intoxicated and was admitted to [facility] on 08/07/22. no loss of conciousness. [place] was [place] [facility] He was found to have left anterior column posterior acetabular fracture, bilateral superior and inferior pubic rami fracture and T8/T11/L2/L3 endplate fractures. He was seen by neurosurgery who recommended TLSO for at least 3 months, which he completed. left hip pain: finding it difficult to get around. located in left lateral hip w/o radiation or thigh numbness. foot numbness: describes it as tingling but not painful. equal bilaterally. GERD: few times per wk, he gets burning in his chest that responds to water. if he eats to soon close to bed, he will get regurgitation. No odynophagia, dysphagia. palpitations: usually occurs when he is lying on his back, once per week. there is mild tightness associated w/ that for 10 seconds. no chest pain or discomfort on exertion. denies orthopnea, dyspnea, dizziness. has chronic cough, but only occasional. no hemotypsis or weight loss. quit smoking in 2015. hx of dyspnea on exertion: This is improved significantly since quitting smoking. He quit smoking in 2015. he had a negative nuc med stress test in 2016. No increased cough or hemoptysis. PFTs and TTE were normal in 2016. inflammatory symmetric small joint synovitis: has been following w/ Rheum. treated w/ prednisone initially. Then started on methotrexate after having a reoccurrence on Plaquenil alone. Cleared by eye doc. had pain in MCPs with limited range of motion. there is stiffness when he wakes up and this takes over an hour to loosen up. no longer tired and weak. prednisone has helped considerably in the recent past but has led to weight gain. in the past, there was concern for depression resulting from methotrexate use, so this and the Plaquenil were stopped. anemia was also though to have resulted from methotrexate. back on plaquenil. PTSD/ depression: on sertraline. he became suicidal a few yrs ago, but has been doing better. HTN: home BPs 120s-130s sys at home. no chest pain or dyspnea. bronchitis: treated w/ antibiotic at [place] [facility] in 2019. 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 occcasionally, it radiates down right leg into calf. after driving for 20 min, the pain occurs. lying down relieves it. no current numbness in his legs. no past hx of surgery or injections. MRI showed severe central canal stenosis. he had SAÚL on 10/23/18 which helped the symptoms. concern that steroids inj led to depression previously. not taking meds for it. constipation: colonoscopy in 2016 showed adenomatous polyp. improved. hx dizziness: no longer occuring after stopping tamsulosin. nocturia: He has to get up at night to be couple of times. denies urinary hesitancy, dribbling and incontinence. He denies dysuria, hematuria. No family history of prostate cancer. obesity: used to be in [employer] program but knee was limiting physical abilities. KAREL: using CPAP hx of carpal tunnel release: doesn't want to have to take the time off from work to get the left done ED: Viagra helpful. no nubmness around is perineal region or leg claudication. Today's Nurse check-in note reviewed. 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) Compression fracture of thoracic spine (PAIN, NECK/CERVICALGIA (ICD-9-CM 723.1) Posttraumatic stress disorder ([facility] [id number] pain ([facility] [id number]) OEF/OIF EXPOSURE TO BURN PIT SMOKE (ICD-OEF/OIF EXPOSURE TO SANDSTORMS/DUSTSTORMS (ICD-10-CM R69.) Dyspnea on exertion ([facility] [id number]) Dyspnea on exertion ([facility] [id number]) Pain radiating to right side of chest (SHypertension ([facility] 94136803) Inflammatory polyarthritis ([facility] [id number] risk drug monitoring status ([facility] [id number]) Physical Exam: Vitals: BP: 131/88 (06/02/2023 10:48) P: 91 (06/02/2023 10:48) R: 18 (06/02/2023 10:48) T: 97.3 F [36.3 C] (06/02/2023 10:48) WT: 255 lb [115.67 kg] (06/02/2023 10:48) Pain: 0 (06/02/2023 10:48) O2 Sat: 95% (06/02/2023 10:48) Skin: No concerning lesions Eyes: PERRLA, EOMI Ears: Tympanic membranes normal bilaterally Oral/Throat: normal oropharynx Neck/Thyroid: No adenopathy, No thyromegaly, No JVD Cardiac: RRR, S1 S2, No murmurs, gallops, rubs Chest/Lungs: Bilaterally clear Abdominal: Normal - Normal bowel sounds, Non-tender, No hepatosplenomegaly, No masses Extremities: No edema Neurological: Alert and oriented x3, Cranial nerves II - XII intact Strength: normal strength globally. antalgic gait. pill-rolling tremor in left hand. intention tremor with both arms. no bradykinesia. normal speech. Lymph: no supraclavicular or cervical lymphadenopathy left Hip: pain w/ ext rotation. No tenderness over greater trochanter. neg straight leg raISE. Review of Systems: Feels well No weight [...] Use: Yes, drinking is concerning for abuse. /ubaldo/ BRIJESH HENDERSON MD Staff Physician Signed: 06/02/2023 18:22 BRIJESH HENDERSON [facility] Jun 02, 2023 10:51 AM INTERNAL MEDICINE OUTPATIENT NOTE: LOCAL TITLE: MEDICINE CLINIC NURSING NOTE STANDARD TITLE: INTERNAL MEDICINE OUTPATIENT NOTE DATE OF NOTE: JUN 02, 2023@10:51 ENTRY DATE: JUN 02, 2023@10:51:18 AUTHOR: LINDSEY HOLLOWAY EXP COSIGNER: URGENCY: STATUS: COMPLETED TYPE OF VISIT: Appointment Check In Type of appointment: In-person appointment REASON FOR VISIT: Routine check up ALLERGIES: PENICILLIN (Nov 19, 2009) ZOLPIDEM (Dec 26, 2014) KENALONE INJECTION (40 MG/ML) (Oct 26, 2018) VITAL SIGNS: Blood Pressure: 131/88 (06/02/2023 10:48) Pulse: 91 (06/02/2023 10:48) Respiration: 18 (06/02/2023 10:48) Temperature: 97.3 F [36.3 C] (06/02/2023 10:48) Weight: 255 lb [115.67 kg] (06/02/2023 10:48) Height: 70.5 in [179.1 cm] (06/02/2023 10:48) BMI: 36.1 O2 Sat: 95% (06/02/2023 10:48) Pain: 0 (06/02/2023 10:48) PAIN SCREEN: Patient is not having significant pain that they wish to discuss with their provider today. MEDICATION Over the Counter/Herbal Medications: The patient denies taking any outside medications or herbals. Depression Screening: Perform PHQ-2 A PHQ-2 screen was performed. The score was 2 which is a negative screen for depression. Over the past two weeks, how often have you been bothered by the following problems? 1. Little interest or pleasure in doing things Several days 2. Feeling down, depressed, or hopeless Several days Alcohol Use Screen (AUDIT-C): Alcohol Screen: SCREEN FOR ALCOHOL (AUDIT-C) An alcohol screening test (AUDIT-C) was negative (score=2). 1. How often did you have a drink containing alcohol in the past year? Consider a drink to be a 12 ounce can or bottle of regular beer, 8 ounces of malt liquor, a 5 ounce glass of table wine, or a 1.5 ounce shot of liquor (like scotch, gin, or vodka). Two to four times a month 2. How many drinks containing alcohol did you have on a typical day when you were drinking in the past year? One or two drinks 3. How often did you have six or more drinks on one occasion in the past year? Never Tobacco Use Screening: The patient is a former tobacco user. The patient quit five to less than fifteen years ago. Nursing Annual Screening: Fall History Screen During the past 12 months, have you had any falls? Patient reports having had 2 or more falls within the past 12 months. MEDICATIONS: Patient is on one of the following medication classes: Antihypertensives, Antidepressants, Antipsychotics, Diuretics, or Controlled substance medication used for pain. FALL RISK ADVICE: Fall Risk Advice provided. Handout entitled Fall Prevention At Home reviewed and given to patient and/or significant other. Script Talk Screen Are you able to read your prescription bottles with your glasses, magnifiers or other aids? Yes or patient not taking any prescriptions. Skin Screen Patient reports any current pressure ulcers, a history of pressure ulcers, or a wound from a medical assistant per diem or Patient is bed-confined or a wheelchair-user or Patient requires assistance to transfer/change position No, Skin Screen is Negative Home Abuse/Violence Screen Is your home free of abuse and violence? Yes [employer]! Program Screen Body Mass Index (BMI)= 36.1 [place]: Collection DT Specimen Test Name Result Units Ref Range 02/07/2023 09:34 BLOOD !! HEMOGLOBIN A1C 4.7 % 4.0 - 6.0 !! Indicates COMMENTS AVAILABLE...Refer to Interim Lab Report. [place] Hgb A1C: No data available [place] Hgb A1C: No data available Point of Care Hgb A1C: POC HGB A1C____ No Outpatient Nutrition Screen Body Mass Index (BMI)= 36.1 [place]: Collection DT Specimen Test Name Result Units Ref Range 02/07/2023 09:34 BLOOD !! HEMOGLOBIN A1C 4.7 % 4.0 - 6.0 !! Indicates COMMENTS AVAILABLE...Refer to Interim Lab Report. [place] Hgb A1C: No data available [place] Hgb A1C: No data available Point of Care Hgb A1C: POC HGB A1C____ Is patient's BMI less than 18.5? No Does patient have swallowing, coughing, or chewing problems affecting oral intake? No Has patient experienced unplanned weight loss or gain greater than 10 pounds over the last 2 months? No Is patient's Hgb A1C (Glycosylated Hemoglobin) greater than 9.5? No Is patient receiving Total Parenteral Nutrition (TPN) or Tube Feedings? No Patient Health Education Screen BARRIERS/SPECIAL NEEDS: No barriers identified PREFERRED STYLE OF LEARNING: No preference stated Client Assistive Service (APRIL) Screen Does the patient require assistance with outpatient visit? No COVID-19 Immunization: Pfizer Monovalent (Comirnaty) Administered: COVID-19 (PFIZER), MRNA, LNP-S, PF, MELISA-SUCROSE, 30 MCG/0.3 ML (AGES 12+ YEARS) Date Administered: Jun 02, 2023 11:00 Series: Series 1 Auto Body Customizer: [employer] Lot: [id number] Exp Date: Jun 15, 2023 [facility]: [phone] Admin Route/Site: INTRAMUSCULAR/RIGHT DELTOID Dosage: 0.3mL Vaccine Information Statement(s): COVID-19 MRNA VACCINE (12+ YRS) VACCINE VIS Mar 03, 2023 (PRYDEINIG) Order By: Brijesh Henderson Administered By: Lindsey Holloway Vaccine administered without complications. The patient was advised to remain in the facility for 15 minutes post vaccination. /ubaldo/ LINDSEY HOLLOWAY LPN Signed: 06/02/2023 11:00 LINDSEY HOLLOWAY [facility] Jun 02, 2023 08:45 AM ADVANCE DIRECTIVE: LOCAL TITLE: AD NOTIFICATION AND SCREENING STANDARD TITLE: ADVANCE DIRECTIVE DATE OF NOTE: JUN 02, 2023@08:45 ENTRY DATE: JUN 02, 2023@08:45:24 AUTHOR: CB MORROW EXP COSIGNER: URGENCY: STATUS: COMPLETED ADVANCE DIRECTIVE NOTIFICATION: Patient was given written notification of the following rights: 1. Accept or refuse any medical treatment. 2. Complete a durable power of civil litigation attorney for health care. 3. Complete a living will. ADVANCE DIRECTIVE SCREENING: Does patient have an Advance Directive? The patient has an Advance Directive. Does the patient wish to make any changes or revoke their current Advance Directive? No changes requested at this time. /samantha MORROW MEDICAL SUPPORT ASSISTAT Signed: 06/02/2023 08:45 CB MORROW [facility]
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
--- OUTSIDE RECORDS SUMMARY | 2023-09-23 17:15 | XMS_ITS | Encounter Summary ---
Author Name Department of Vetera Affairs Organization Department of Vetera Affairs Address [address] [facility], [place] [address] Support Name Relationship Address Phone MARIBELL, VITO Next of Kin [address] [place] [address] MARIBELLVITO GUILLERMO Emergency Contact [address] [place] [address] Insurance Providers: All historical and [...] Hurt's Name Patient's Relationship to Policy Hurt [facility] (WNR) MEDICARE ADVANTAGE [facility] (WNR) May 16, 2023 [id number] 17 JEAN JAIN IN PATIENT Selected Encounter This section includes the information on record at [place] for the Encounter. Date/Time Encounter Type Encounter Description Reason Provider Source Jul 14, 2023 05:09 PM Outpatient Encounter ADMIN PAT ACTIVTIES (MASNONCT) HA HENDERSON Encounter Template Text not used by [place] Plan of Treatment: Future Appointments (+ 6 months) and Future Tests (+/- 45 days) The Plan of Treatment section includes future care activities for the patient from all [place] treatmentfacilities. This section includes future appointments and future orders which are active, pending or scheduled. Future Appointments This section includes appointments that were scheduled to occur 6 months from the date of the Encounter, up to a maximum of 20 appointments. The data comes from all [place] treatment facilities. Appointment Date/Time Appointment Type Appointme nt Facility Name Jul 21, 2023 08:30 AM AM[place]ATORY - NONE [place] [facility] Jul 21, 2023 08:45 [facility] Jul 21, 2023 09:15 AM [facility]ORY [place] [facility] Aug 01, 2023 08:00 AM AMBULATORY - SURGERY [facility] Aug 09, 2023 10:30 AM AMBULATORY - REHAB MEDICIN [facility] Aug 22, 2023 11:15 AM AMBULATORY [place]AT[place] [facility] Aug 30, 2023 02:00 PM [facility] Aug 31, 2023 04:15 PM AMBULATORY - SURGERY [facility] Sep 08, 2023 09:30 AM [facility] Sep 08, 2023 10:30 AM AMBULATORY - REHAB MEDICIN E [facility] September 22, 2023 10:39 AM [facility] September 27, 2023 10:30 AM AMBULATORY - PSYCHIATRY [facility] Nov 10, 2023 07:15 AM [facility] Nov 10, 2023 07:30 AM AMBULATORY - MEDICINE [facility] Jan 02, 2024 09:30 AM AMBULATORY - MEDICINE [facility] Jan 02, 2024 10:30 AM AMBULATORY - MEDICINE [facility] Active, Pending, and Scheduled Orders This section [...] 06:24 PM Consult Order GASTROENTEROLOGY OUTPT Cons [place] [facility] Agent's Choice [facility] Jul 21, 2023 12:00 AM Laboratory - Chemistry Order B 12 SERUM SP ONCE [facility] Lab Results: +/- 30 days of the [...] Range Comment Jul 07, 2023 09:52 AM [facility] RHEUMATOLOGY CHEM PANEL Specimen Type: PLASMA No comment entered. Ordering Provider: OSWALD PEREZ Report Released Date/Time: May 21, 2022 10:24 AM Reporting Lab: [facility] [id number] Performing Lab: [facility] [id number] CREATININE 1.1 0.7-1.2 ALKALINE PHOSPHATASE 130 40-150 ALT/SGPT 71 H <55 AST/SGOT 91 H <34 C-REACTIVE PROTEIN 4.48 <5.00 .CREAT EGFR(CKD-EPI) 74 >60 Jul 07, 2023 09:52 AM [facility] RHEUMATOLOGY HEME PANEL Specimen Type: BLOOD Comment: Automated Differential Performed Ordering Provider: OSWALD PEREZ Report Released Date/Time: May 21, 2022 10:24 AM Reporting Lab: [facility] [id number] Performing Lab: [facility] [id number] WBC 9.57 4.0-11.0 RBC 4.59 L 4.6-6.2 [...] GRAN 0.04 0-0.1 SED RATE 14 5-15 Social History: Smoking Status (Most current) and Tobacco Use (All prior to encounter date) This section includes the most current, and the historical, smoking and tobacco- related health factors from the [place] facility where the Encounter took place. Current Smoking Status This section includes the most current smoking, or tobacco-related health factor, from the [place] facility where the Encounter took place. Date/Time Current Smoking Status Comment Facil ity Jun 02, 2023 11:00 AM VA-TOBACCO FORMER USER [facility] Tobacco Use History This section includes a history of the smoking, or tobacco-related health factors, that were collected on or before the date of the Encounter. The data comes from the [place] facility where the Encounter took place. Date/Time Smoking Status/Tobacco Use Comment F acility Jun 02, 2023 11:00 AM VA-TOBACCO QUIT 5 TO < 15 YRS [facility] May 21, 2022 10:30 AM VA-TOBACCO FORMER USER [facility] May 21, 2022 10:30 AM VA-TOBACCO QUIT 15 YRS OR MORE [facility] Nov 12, 2020 12:00 PM VA-TOBACCO FORMER USER [facility] Nov 12, 2020 12:00 PM VA-TOBACCO QUIT 5 TO < 15 YRS [facility] May 31, 2019 06:22 AM INPT NO TOBACCO USE IN LAST 30 D AYS [facility] Nov 08, 2017 01:55 PM VA-TOBACCO FORMER USER [facility] Nov 08, 2017 01:55 PM [place]-TOBACCO QUIT 1 TO < 5 YRS [facility] May 11, 2017 12:43 PM FORMER TOBACCO USE >1Y <7Y [facility] Aug 04, 2016 10:25 AM FORMER TOBACCO USE >1Y <7Y [facility] Aug 04, 2015 11:31 AM FORMER TOBACCO USE <1Y [facility] Aug 13, 2014 10:50 AM CURRENT TOBACCO USER [facility] October 10, 2013 09:12 AM FORMER TOBACCO USER 7Y OR GREATE R [facility] May 26, 2012 10:14 AM CURRENT TOBACCO USER [facility] Nov 19, 2009 12:07 PM CURRENT TOBACCO USER [facility] Advance Directives: All historical and current Section Date Range: From patient's date of to the date document was created. This section includes ALL of a patient's completed or amended [place] Advance and Rescinded Directives. The entries below indicate that a directive exists for the patient, but an actual copy is not included with this document. The data comes from all [facility]. Date Advance Directives Provider Source May 11, 2006 ADVANCE DIRECTIVE ASH RAZO [facility] Radiology Reports: +/- 30 days of the [...] the Encounter. The data comes from all [place] treatment facilities. Date/Time Radiology Report Provider Source Jul 21, 2023 08:[address] HIP LEFT W/O CO NTRAST: CALVIN JAIN [id number] -1955 M Exm Date: JUL 21, 2023@08:27 Req Phys: HA HENDERSON Loc: [facility] PACT GRAPE 4D (Req'g Lo Img Loc: CT IMAGING Service: Unknown (Case [id number] COMPLETE) CT HIP LEFT W/O CONTRAST (CT Detailed) CPT:04933 Reason for Study: left hip pain Clinical History: 68 yo M w/ hx of EtOH abuse, hx pelvic fracture/ multiple vertebral fractures: left anterior column posterior acetabular fracture, bilateral superior and inferior pubic rami fracture and T8/T11/L2/L3 endplate fractures. qualifies for empiric treatment for osteoporosis. no sx of radiculopathy. Neurosurgery here at the [place] commented that f/u x-rays on 12/10 show [...] COMMENTS AVAILABLE...Refer to Interim Lab Report. Allergies: ([place] only) PENICILLIN (Nov 19, 2009) ZOLPIDEM (Dec 26, 2014) KENALONE INJECTION (40 MG/ML) (Oct 26, 2018) Report Status: Verified Date Reported: JUL 21, 2023 Date Verified: JUL 21, 2023 Special Effects Artist E-Sig:/ES/MARITZA CASTREJON MD Report: EXAMINATION: CT HIP [...] Primary Interpreting Staff: MARITZA CASTREJON MD, RADIOLOGIST (Special Effects Artist) /MARITZA BHARDWAJ [facility] Encounter Notes: All associated encounter notes This section contains the clinical notes associated to the Encounter. Date/Time Encounter Note(s) Provider Source Jul 14, 2023 05:17 PM LETTERS: LOCAL TITLE: FOLLOW UP RESULTS LETTER STANDARD TITLE: LETTERS DATE OF NOTE: JUL 14, 2023@17:17 ENTRY DATE: JUL 14, 2023@17:17:10 AUTHOR: MASOUD HARRINGTON EXP COSIGNER: URGENCY: STATUS: COMPLETED [facility] [address] [place] [address] Jun CALVIN JAIN [address] [place] [id number] [place]: Your recent chest imaging on Mar showed: No lung nodules that require further follow up at this time. You may now return to the routine lung cancer screening program. If you still meet criteria for screening, your PCP will let you know when it is time to be screened again. This is usually about a year from your last screening chest CT. If you are scheduled for a scan in the future and you have symptoms of a chest cold at that time, please call number on appointment letter to reschedule for four weeks after symptoms improve. If you have any further questions or problems, please contact Lung Cancer Screening staff at [phone]. MASOUD HARRINGTON MA, RN LCS Boat Tender MASOUD HARRINGTON [facility] Jul 14, 2023 05:16 PM PULMONARY NOTE: LOCAL TITLE: PULMONARY LUNG CANCER SCREENING STANDARD TITLE: PULMONARY NOTE DATE OF NOTE: JUL 14, 2023@17:16 ENTRY DATE: JUL 14, 2023@17:16:09 AUTHOR: MASOUD HARRINGTON EXP COSIGNER: URGENCY: STATUS: COMPLETED NO LUNG NODULES or TRACKING OF NODULE NOT INDICATED per guidelines (e.g., clearly benign/some small nodules). Date of image: Date: March 30, 2023 LDCT Scan Results: Most recent LDCT scan shows a nodule for which tracking is not indicated per guidelines or radiology report. No incidental findings were noted. Plan: Continue routine annual lung cancer screening. Patient Notification of results: Results letter sent to patient. /ubaldo/ MASOUD HARRINGTON MA, RN LCS Boat Tender Signed: 07/14/2023 17:17 MASOUD HARRINGTON [facility] Jul 14, 2023 05:13 PM PULMONARY NOTE: LOCAL TITLE: PULMONARY LUNG CANCER SCREENING STANDARD TITLE: PULMONARY NOTE DATE OF NOTE: JUL 14, 2023@17:13 ENTRY DATE: JUL 14, 2023@17:13:22 AUTHOR: MASOUD HARRINGTON EXP COSIGNER: URGENCY: STATUS: COMPLETED Tobacco Pack Year History: Patient used cigarettes in the past, but quit and does not currently use them: Quit smoking LESS THAN 15 years. Year the patient quit smoking: Date: 2014 ? Exact date is unknown How many years has the patient smoked? # of years 20 Average number of packs/day over the entire time patient smoked: Packs/day 1 TPY revised for administrative purposes. /ubaldo/ MASOUD HARRINGTON MA, RN LCS Boat Tender Signed: 07/14/2023 17:14 MASOUD HARRINGTON [facility]
--- OUTSIDE RECORDS SUMMARY | 2023-09-23 17:16 | XMS_ITS | Encounter Summary ---
Author Name Department of Vetera Affairs Organization Department of Vetera Affairs Address [address] [place] [address] Support Name Relationship Address Phone VITO REYNA Next of Kin [address] [place] [address] MARIBELL VITO Emergency Contact [address] [place] [address] Insurance Providers: All historical and [...] Hurt's Name Patient's Relationship to Policy Hurt [facility] (WNR) MEDICARE ADVANTAGE [facility] (WNR) May 16, 2023 [id number] 17 JEAN JAIN IN PATIENT Selected Encounter This section includes the information on record at [place] for the Encounter. Date/Time Encounter Type Encounter Description Reason Pro vider Source Jul 21, 2023 01:37 PM Outpatient Encounter PRIMARY CARE/MEDICINE [facility] Encounter Template Text not used by [place] Plan of Treatment: Future Appointments (+ 6 months) and Future Tests (+/- 45 days) The Plan of Treatment section includes future care activities for the patient from all [place] treatmentfacilities. This section includes future appointments and future orders which are active, pending or scheduled. Future Appointments This section includes appointments that were scheduled to occur 6 months from the date of the Encounter, up to a maximum of 20 appointments. The data comes from all [place] treatment facilities. Appointment Date/Time Appointment Type Appointme nt Facility Name Aug 01, 2023 08:00 AM AMBULATORY - SURGERY [facility] Aug 09, 2023 10:30 AM AMBULATORY - REHAB MEDICIN E [facility] Aug 22, 2023 11:15 AM AMBULATORY [place] [facility] Aug 30, 2023 02:00 PM AM[facility] [place] [facility] [facility] Aug 31, 2023 04:15 PM [facility] Sep 08, 2023 09:30 AM AMBULATORY - NONE [facility] Sep 08, 2023 10:30 AM AMBULATORY - REHAB MEDICIN E [facility] September 22, 2023 10:39 AM AM[facility] [place] [facility] September 27, 2023 10:30 AM AMBULATORY - PSYCHIATRY [facility] Nov 10, 2023 07:15 AM AMBULATORY - MEDICINE [facility] Nov 10, 2023 07:30 AM AMBULATORY - MEDICINE [facility] Jan 02, 2024 09:30 AM AMBULATORY - MEDICINE [facility] Jan 02, 2024 10:30 AM AMBULATORY - MEDICINE [facility] Active, Pending, and Scheduled Orders This section includes a listing of several types of active, pending, and scheduled orders, including clinic medications orders, diagnostic test orders, procedure orders and consult orders; where the start date of the order is 45 days before the date of the Encounter or 45 days after the date of theEncounter. The data comes from all [place] treatment facilities. Test Date/Time Test Type Test Details Facility Name Jul 21, 2023 12:00 AM Laboratory - Chemi stry Order B 12 SERUM SP ONCE [facility] Lab Results: +/- 30 days of the encounter This section includes the Chemistry and Hematology Lab Results on record with [place] for the patient. Radiology Reports and Pathology Reports are provided separately, in subsequent sections. Lab Results This section contains the Chemistry/Hematology Results that were resulted 30 days before or 30 daysafter the date of the Encounter. Date/Time Source Result Type Result - Unit Interpretation Reference Range Comment Jul 07, 2023 09:52 AM [facility] RHEUMATOLOGY CHEM PANEL Specimen Type: PLASMA No comment entered. Ordering Provider: OSWALD PEREZ Report Released Date/Time: May 21, 2022 10:24 AM Reporting Lab: [facility] [id number] Performing Lab: [facility] [id number] CREATININE 1.1 0.7-1.2 ALKALINE PHOSPHATASE 130 40-150 ALT/SGPT 71 H <55 AST/SGOT 91 H <34 C-REACTIVE PROTEIN 4.48 <5.00 .CREAT EGFR(CKD-EPI) 74 >60 Jul 07, 2023 09:52 AM [facility] RHEUMATOLOGY HEME PANEL Specimen Type: BLOOD Comment: Automated Differential Performed Ordering Provider: OSWALD PEREZ Report Released Date/Time: May 21, 2022 10:24 AM Reporting Lab: [facility] [id number] Performing Lab: [facility] [id number] WBC 9.57 4.0-11.0 RBC 4.59 L 4.6-6.2 [...] 02, 2023 11:00 AM VA-TOBACCO FORMER USER [facility] Tobacco Use History This section includes a history of the smoking, or tobacco-related health factors, that were collected on or before the date of the Encounter. The data comes from the [place] facility where the Encounter took place. Date/Time Smoking Status/Tobacco Use Comment F acility Jun 02, 2023 11:00 AM VA-TOBACCO QUIT 5 TO < 15 YRS [facility] May 21, 2022 10:30 AM VA-TOBACCO FORMER USER [facility] May 21, 2022 10:30 AM VA-TOBACCO QUIT 15 YRS OR MORE [facility] Nov 12, 2020 12:00 PM VA-TOBACCO FORMER USER [facility] Nov 12, 2020 12:00 PM VA-TOBACCO QUIT 5 TO < 15 YRS [facility] May 31, 2019 06:22 AM INPT NO TOBACCO USE IN LAST 30 D AYS [facility] Nov 08, 2017 01:55 PM VA-TOBACCO FORMER USER [facility] Nov 08, 2017 01:55 PM VA-TOBACCO QUIT 1 TO < 5 YRS [facility] May 11, 2017 12:43 PM FORMER TOBACCO USE >1Y <7Y [facility] Aug 04, 2016 10:25 AM FORMER TOBACCO USE >1Y <7Y [facility] Aug 04, 2015 11:31 AM FORMER TOBACCO USE <1Y [facility] Aug 13, 2014 10:50 AM CURRENT TOBACCO USER [facility] October 10, 2013 09:12 AM FORMER TOBACCO USER 7Y OR GREATE R [facility] May 26, 2012 10:14 AM CURRENT TOBACCO USER [facility] Nov 19, 2009 12:07 PM CURRENT TOBACCO USER [facility] Advance Directives: All historical and current Section Date Range: From patient's date of to the date document was created. This section includes ALL of a patient's completed or amended [place] Advance and Rescinded Directives. The entries below indicate that a directive exists for the patient, but an actual copy is not included with this document. The data comes from all [facility]. Date Advance Directives Provider Source May 11, 2006 ADVANCE DIRECTIVE ASH RAZO [facility] Radiology Reports: +/- 30 days [...] HIP LEFT W/O CO NTRAST: CALVIN JAIN [id number] -1955 M Exm Date: JUL 21, 2023@08:27 Req Phys: HA HENDERSON Loc: [facility] PACT GRAPE WH 4D (Req'g Lo Img Loc: CT IMAGING Service: Unknown (Case [id number] COMPLETE) CT HIP LEFT W/O CONTRAST (CT Detailed) CPT:39296 Reason for Study: left hip pain Clinical History: 68 yo M w/ hx of EtOH abuse, hx pelvic fracture/ multiple vertebral fractures: left anterior column posterior acetabular fracture, bilateral superior and inferior pubic rami fracture and T8/T11/L2/L3 endplate fractures. qualifies for empiric treatment for osteoporosis. no sx of radiculopathy. [place]surgery here at the [place] commented that f/u x-rays on 12/10 show [...] COMMENTS AVAILABLE...Refer to Interim Lab Report. Allergies: ([place] only) PENICILLIN (Nov 19, 2009) ZOLPIDEM (Dec 26, 2014) KENALONE INJECTION (40 MG/ML) (Oct 26, 2018) Report Status: Verified Date Reported: JUL 21, 2023 Date Verified: JUL 21, 2023 Engineer Byproduct E-Sig:/ES/MARITZA CASTREJON MD Report: EXAMINATION: CT HIP [...] Primary Interpreting Staff: MARITZA CASTREJON MD, RADIOLOGIST (Engineer Byproduct) /MARITZA BHARDWAJ [facility] Encounter Notes: All associated encounter notes This section contains the clinical notes associated to the Encounter. Date/Time Encounter Note(s) Provider Source Jul 21, 2023 01:37 PM LETTERS: LOCAL TITLE: FOLLOW UP RESULTS LETTER STANDARD TITLE: LETTERS DATE OF NOTE: JUL 21, 2023@13:37 ENTRY DATE: JUL 21, 2023@13:37:50 AUTHOR: LIA HENDERSON EXP COSIGNER: URGENCY: STATUS: COMPLETED [facility] [address] [place] [address] Jul CALVIN PIOTR JAIN [address] [facility] [address] Dear [place]: Thank you for your 07/21/23 13:37 Primary Care Appointment. I am writing to provide your test results. ____ RADIOLOGY REPORTS: ____ CT left hip: Impression: Healing/healed fractures of the pelvis including [...] the left pelvic girdle and gluteal musculature. 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 This means that significant damage to the head of the femur, in addition to the arthritis that is present. please discuss options with Orthopedics. ____ FUTURE APPOINTMENTS: ____ JUL 21, 2023@08:30 Clinic: [facility] CT NON-CONTRAST AM JUL 21, 2023@08:45 Clinic: [facility] LAB BLOOD DRAWING ROOM JUL 21, 2023@09:15 Clinic: [facility] BOWERS [id number] JUL 29, 2023@08:30 Clinic: [facility] GI ENDOSCOPY A JUL 29, 2023@09:00 Clinic: [facility] GI COLONOSCOPY A AUG 01, 2023@08:00 Clinic: [facility] ORTHO PA NARWHAL CONSULT AUG 02, 2023@09:30 Clinic: [facility] EMG NERVE CONDUCTION AUG 09, 2023@10:30 Clinic: [facility] NEURO ASHWIN EVAL AUG 30, 2023@14:00 Clinic: [facility] PACT GRAPE PHONE JAN 02, 2024@09:30 Clinic: [facility] 79 LAB JAN 02, 2024@10:30 Clinic: [facility] PEREZ LINING PRESSER 79 A Primary Care appt is planned once yearly to stay enrolled in primary care. You should be contacted by the [place] [facility] as a reminder to schedule. The [place] [facility] line is [phone] [press 4 for Attendant]. Please call if you have any questions or concerns. Thank you for choosing [facility] for your Primary Care. Sincerely, HA HENDERSON MD Staff Physician HA HENDERSON [facility]
--- OUTSIDE RECORDS SUMMARY | 2023-09-23 17:16 | XMS_ITS | Encounter Summary ---
Author Name Department of Vetera Affairs Organization Department of Vetera ns Affairs Address [address] [facility], [place] [address] Support Name Relationship Address Phone MARIBELL, VITO Next of Kin [address] [place] [address] MARIBELL, VITO Emergency Contact [address] [place] [address] Insurance Providers: All historical and [...] Hurt's Name Patient's Relationship to Policy Hurt [facility] (WNR) MEDICARE ADVANTAGE [facility] (WNR) May 16, 2023 [id number] SUSYJEAN IN PATIENT Selected Encounter This section includes the information on record at [facility] for the Encounter. Date/Time Encounter Type Encounter Description Reason Provider Source Jul 21, 2023 09:15 AM OFFICE O/P EST MOD 30 [facility] - IND ICD-10-CM F43.10 Post-traumatic stress disorder, unspecified PATTY PATEL Zeke Encounter Template Text not used by [facility] Assessments - Encounter Diagnoses This section includes the primary and secondary diagnoses documented for the Encounter. Date/Time Primary/Secondary Diagnosis Diagnosis Name Provider Source Jul 21, 2023 09:56 AM PRIMARY Post-traumatic stress disorder, unspecified PATTY PATEL [facility] Plan of Treatment: Future Appointments (+ 6 months) and Future Tests (+/- 45 days) The Plan of Treatment section includes future care activities for the patient from all [facility]. This section includes future appointments and future orders which are active, pending or scheduled. Future Appointments This section includes appointments that were scheduled to occur 6 months from the date of the Encounter, up to a maximum of 20 appointments. The data comes from all [facility]. Appointment Date/Time Appointment Type Appointme nt Facility Name Aug 01, 2023 08:00 AM AMBULATORY - SURGERY [facility] Aug 09, 2023 10:30 AM AMBULATORY - REHAB MEDICIN E [facility] Aug 22, 2023 11:15 AM [facility] Aug 30, 2023 02:00 PM [facility] Aug 31, 2023 04:15 PM AMBULATORY - SURGERY [facility] Sep 08, 2023 09:30 AM AMBULATORY - NONE [facility] Sep 08, 2023 10:30 AM AMBULATORY - REHAB MEDICIN E [facility] September 22, 2023 10:39 AM [facility]ORY [facility] [place] [facility] September 27, 2023 10:30 AM AMBULATORY - PSYCHIATRY [facility] Nov 10, 2023 07:15 AM [facility] Nov 10, 2023 07:30 AM [facility] Jan 02, 2024 09:30 AM AMBULATORY - MEDICINE [facility] Jan 02, 2024 10:30 AM AMBULATORY - MEDICINE [facility] Active, Pending, and Scheduled Orders This section includes a listing of several types of active, pending, and scheduled orders, including clinic medications orders, diagnostic test orders, procedure orders and consult orders; where the start date of the order is 45 days before the date of the Encounter or 45 days after the date of theEncounter. The data comes from all [facility]. Test Date/Time Test Type Test Details Facility Name Jul 21, 2023 12:00 AM Laboratory - Chemi stry Order B 12 SERUM SP ONCE [facility] Lab Results: +/- 30 days of the encounter This section includes the Chemistry and Hematology Lab Results on record with [facility] for the patient. Radiology Reports and Pathology Reports are provided separately, in subsequent sections. Lab Results This section contains the Chemistry/Hematology Results that were resulted 30 days before or 30 daysafter the date of the Encounter. Date/Time Source Result Type Result - Unit Interpretation Reference Range Comment Jul 07, 2023 09:52 AM [facility] RHEUMATOLOGY CHEM PANEL Specimen Type: PLASMA No comment entered. Ordering Provider: OSWALD PEREZ Report Released Date/Time: May 21, 2022 10:24 AM Reporting Lab: [facility] [id number] Performing Lab: [facility] [id number] CREATININE 1.1 0.7-1.2 ALKALINE PHOSPHATASE 130 40-150 ALT/SGPT 71 H <55 AST/SGOT 91 H <34 C-REACTIVE PROTEIN 4.48 <5.00 .CREAT EGFR(CKD-EPI) 74 >60 Jul 07, 2023 09:52 AM [facility] RHEUMATOLOGY HEME PANEL Specimen Type: BLOOD Comment: Automated Differential Performed Ordering Provider: OSWALD PEREZ Report Released Date/Time: May 21, 2022 10:24 AM Reporting Lab: [facility] [id number] Performing Lab: [facility] [id number] WBC 9.57 4.0-11.0 RBC 4.59 L 4.6-6.2 [...] and tobacco- related health factors from the [facility] facility where the Encounter took place. Current Smoking Status This section includes the most current smoking, or tobacco-related health factor, from the [place] facility where the Encounter took place. Date/Time Current Smoking Status Comment Facil ity Jun 02, 2023 11:00 AM VA-TOBACCO QUIT 5 TO < 15 YRS [facility] Tobacco Use History This section includes a history of the smoking, or tobacco-related health factors, that were collected on or before the date of the Encounter. The data comes from the [place] facility where the Encounter took place. Date/Time Smoking Status/Tobacco Use Comment F acility Jun 02, 2023 11:00 AM VA-TOBACCO QUIT 5 TO < 15 YRS [facility] May 21, 2022 10:30 AM VA-TOBACCO FORMER USER [facility] May 21, 2022 10:30 AM [...] VA-TOBACCO QUIT 1 TO < 5 YRS [facility] [...] ALL of a patient's completed or amended [place] Advance and Rescinded Directives. The entries below indicate that a directive exists for the patient, but an actual copy is not included with this document. The data comes from all [facility]. Date Advance Directives Provider Source May 11, 2006 ADVANCE DIRECTIVE ASH RAZOBrina Ramsey [facility] Radiology Reports: +/- 30 days of [...] the Encounter. The data comes from all [place] treatment facilities. Date/Time Radiology Report Provider Source Jul 21, 2023 08:[address] HIP LEFT W/O CO NTRAST: CALVIN JAIN [id number] -[id number] M Exm Date: JUL 21, 2023@08:27 Req Phys: HA HENDERSON Loc: [facility] PACT GRAPE WH 4D (Req'g Lo Img Loc: CT IMAGING Service: Unknown (Case [id number] COMPLETE) CT HIP LEFT W/O CONTRAST (CT Detailed) CPT:64322 Reason for Study: left hip pain Clinical History: 68 yo M w/ hx of EtOH abuse, hx pelvic fracture/ multiple vertebral fractures: left anterior column posterior acetabular fracture, bilateral superior and inferior pubic rami fracture and T8/T11/L2/L3 endplate fractures. qualifies for empiric treatment for osteoporosis. no sx of radiculopathy. Neurosurgery here at the [facility] commented that f/u x-rays on 12/10 show [...] questions or notifications of critical findings: Werner Alejadnro TEAMS LAST 3: Collection DT Specimen Test [...] COMMENTS AVAILABLE...Refer to Interim Lab Report. Allergies: ([place] only) PENICILLIN (Nov 19, 2009) ZOLPIDEM (Dec 26, 2014) KENALONE INJECTION (40 MG/ML) (Oct 26, 2018) Report Status: Verified Date Reported: JUL 21, 2023 Date Verified: JUL 21, 2023 Machine Set Up Operator [employer]s E-Sig:/ES/MARITZA CASTREJON MD Report: EXAMINATION: CT HIP [...] Primary Interpreting Staff: MARITZA CASTREJON MD, RADIOLOGIST (Machine Set Up Operator [employer]) /MARITZA BHARDWAJ [facility] Encounter Notes: All associated encounter notes This section contains the clinical notes associated to the Encounter. Date/Time Encounter Note(s) Provider Source Jul 21, 2023 08:06 AM PSYCHIATRY E & M NOTE: LOCAL TITLE: PSYCHIATRIC EVALUATION & MANAGEMENT STANDARD TITLE: PSYCHIATRY E & M NOTE DATE OF NOTE: JUL 21, 2023@08:06 ENTRY DATE: JUL 21, 2023@08:06:20 AUTHOR: MATEO PATEL COSIGNER: URGENCY: STATUS: COMPLETED PSYCHIATRIC EVALUATION AND MANAGEMENT FOLLOWUP VISIT Patient seen for 30 minute outpatient visit, with 20 minutes spent in psychotherapy. -------- IDENTIFICATION: CALVIN JAIN is a 68 year old seen for follow up visit with the following mental health diagnoses: Posttraumatic stress disorder, chronic ASSESSMENT: CALVIN JAIN reports improved depression symptoms and less mood lability overall. He did not continue taking lamotrigine after a single dose due to feeling better overall. Notably he reports adverse effects related to eszopiclone including worsening upper extremity tremor and hypnagogic hallucinations when taking this medication. Sleep remains inadequate with frequent fragmentation due to pain, nocturia and nightmares. He has not received his CPAP and was encouraged to follow-up with sleep clinic regarding its delivery. He endorses occasional intrusive memories about traumatic events during the day that caused him to be tearful and relates these to increased nightmares. He reports ongoing chronic hip pain and has a follow-up with orthopedics scheduled. He has resumed alcohol use at a low level, approximately 4 drinks per month and denies other substance use. He reports stable passive suicidal ideation without plan or intent. Given his increased nightmare frequency, adequate blood pressure and previous improvement with prazosin starting prazosin titration is appropriate. No other changes indicated. PLAN: Discontinue eszopiclone Discontinue lamotrigine Start prazosin 1 mg, may increase by 1 mg every 3 days up to 5 mg for nightmares Continue vortioxetine 20 mg daily for mood FUTURE CONSIDERATIONS: Vortioxetine 20 mg typical max dose. On naltrexone by PCP RTC: 4 weeks, phone Patient demonstrated readiness to learn; stated understanding of education/plan provided at this encounter; denies further questions; and agrees with plan. Patient expressed understanding that they can call me or return for care sooner should they have side effects from medications, an increase in symptoms or other clinical concerns. -------- Chart reviewed since last visit. The following is obtained from the patient and chart review. INTERVAL HISTORY: Since the last visit, CALVIN JAIN reports: - General/Mood: not too bad, I'm not feeling depressed all the time Feels more level - Meds: Taking vortioxetine only, reports hallucinations only when taking eszopiclone. Worsened BUE tremor with eszopiclone. Didn't continue with lamotrigine because mood swings improved. - Sleep: 3 hrs TST, Normal SL, fragmented d/t pain, nocturia, nightmares, dog or unprovoked. Awaiting CPAP and will call to follow up. - Stress: Finances have improved. Finished bathroom renovation. - Health: Still recovering from hip pain, slow improvement. Significant arthritis pain and will follow up with orthopedics - Drug/alcohol use: Approx. 4 drinks per month, no other substance use - Safety: passive suicidal thoughts without plan or intent, not worsening TREATMENT HISTORY: 02/24/23: Self discontinued bupropion d/t lack of efficacy. Doxepin discontinued d/t lack of efficacy and possible hallucinations 05/19/22: Started lamotrigine titration 07/21/23: Discontinue lamotrigine (not started), discontinue eszopiclone, start prazosin titration MEDICATIONS: Active Outpatient Medications (including Supplies): Active Outpatient Medications Status 1) ACETAMINOPHEN 500MG TAB TAKE TWO TABLETS BY MOUTH ACTIVE TWICE A DAY FOR LOW BACK AND LEFT HIP PAIN 2) ALENDRONATE 10MG TAB TAKE ONE TABLET BY MOUTH EVERY ACTIVE DAY TO PREVENT BONE LOSS 3) BISACODYL 5MG EC TAB TAKE TWO TABLETS BY MOUTH ONCE ACTIVE FOR COLON PREP 4) CHOLECALCIF 25MCG (D3-1,000UNIT) TAB TAKE ONE TABLET ACTIVE BY MOUTH EVERY DAY FOR VITAMIN D 5) COLON ELECTROLYTE LAVAGE PWD FOR SOLN TAKE ONE ACTIVE CONTAINER BY MOUTH DIRECTED FOR COLON PREP 6) CYANOCOBALAMIN 1000MCG TAB TAKE ONE TABLET BY MOUTH ACTIVE EVERY DAY FOR B12 SUPPLEMENT 7) ESZOPICLONE 3MG TAB TAKE ONE TABLET BY MOUTH AT ACTIVE BEDTIME FOR INSOMNIA 8) FOLIC ACID 1MG TAB TAKE ONE TABLET BY MOUTH EVERY DAY ACTIVE FOR FOLIC ACID SUPPLEMENT 9) HYDROCHLOROTHIAZIDE 25MG TAB TAKE ONE TABLET BY MOUTH ACTIVE EVERY DAY FOR BLOOD PRESSURE 10) LIDOCAINE 5% PATCH APPLY 1 PATCH TOPICALLY EVERY DAY ACTIVE NEEDED FOR UP TO 12 HOURS FOR PAIN IN 11) MAGNESIUM OXIDE 420MG TAB TAKE ONE TABLET BY MOUTH AT ACTIVE BEDTIME FOR MAGNESIUM SUPPLEMENT 12) NALTREXONE (EQV-REVIA) 50MG TAB TAKE ONE TABLET BY ACTIVE MOUTH EVERY DAY FOR SOBRIETY 13) OMEPRAZOLE 20MG EC CAP TAKE ONE CAPSULE BY MOUTH ACTIVE EVERY DAY FOR STOMACH ACID - TAKE AT LEAST 30 MIN PRIOR TO MEAL ON EMPTY STOMACH 14) THIAMINE 100MG TAB TAKE ONE TABLET BY MOUTH EVERY DAY ACTIVE FOR SUPPLEMENT 15) VORTIOXETINE 20MG TAB TAKE ONE TABLET BY MOUTH EVERY ACTIVE DAY Active Non-VA Medications Status 1) Non-VA ACETAMINOPHEN 325MG TAB 325MG MOUTH EVERY 6 ACTIVE HOURS NEEDED 2) Non-VA HYDROXYCHLOROQUINE SULFATE 200MG TAB 200MG ACTIVE MOUTH EVERY MORNING 3) Non-VA MCFP MEDICATIONS MISCELLANEOUS ACTIVE 4) Non-VA OMEPRAZOLE 20MG EC CAP 20MG MOUTH EVERY DAY ACTIVE 5) Non-VA SIMVASTATIN 20MG TAB 20MG MOUTH AT BEDTIME ACTIVE 20 Total Medications ALLERGIES: PENICILLIN (Nov 19, 2009) ZOLPIDEM (Dec 26, 2014) KENALONE INJECTION (40 MG/ML) (Oct 26, 2018) VITALS: Last Weight:243.5 lb [110.45 kg] (07/07/2023 10:56) BMI (if available): 34.5 Last blood pressure: 130/88 (07/07/2023 10:56) Last Pulse: 106 (07/07/2023 10:56) Recent Labs: CREATININE 1.1 (07/07/23) TSH 5.34 H (06/02/23) HEMOGLOBIN A1C 4.7 (02/07/23) GLUCOSE 97 (06/02/23) CHOLESTEROL 209 H (06/02/23) SGOT 91 H (07/07/23) SGPT 71 H (07/07/23) GAMMA GTP 112 H (02/07/23) WBC 9.57 (07/07/23) PLT 202 (07/07/23) PSYCHIATIC EXAMINATION: -General: Alert, awake, calm, cooperative, appropriately dressed, adequate hygiene. -Gait: Ambulatory without assistance. Slow unsteady gait -Orientation: Alert to person, place and time. -Cognition/Memory: Intact, no evidence of memory problems -Eye Contact: Good Fair Poor. -Psychomotor Activity: Normal. -Abnormal Involuntary Movements: Absent. -Speech: Normal rate and rhythm, coherent. -Mood: not too bad -Affect: Mood congruent, intensity normal. -Thought Process/Content: Goal-directed, linear. Denies SI/HI. -Delusions: No. -Sensorium/Perceptual Disturbance: Clear. Did not appear to be responding to internal stimuli. No evidence of auditory and/or visual hallucinations. -Insight/Judgment: Intact -Attention: Intact. SAFETY ASSESSMENT: - Risks: male, MH dx, hx etoh use disorder - Protective Factors: mood improved, denies SI, support from spouse/family, has social support, spiritual jayda, stable financial/living situation, no elevated etoh/substance use, future-oriented, intact reality testing, connected to providers, no hx of SAs - Assessment: Acute risk: low Chronic Risk: low - Attending appointments, following recommendations, and compliant with prescribed psychiatric meds. /ubaldo/ Mateo Patel MD Staff Psychiatrist Signed: 07/21/2023 09:56 MATEO PATEL [facility]
--- OUTSIDE RECORDS SUMMARY | 2023-09-23 17:17 | XMS_ITS | Encounter Summary ---
Author Name Department of Vetera Affairs Organization Department of Vetera ns Affairs Address [address] [place] [address] Support Name Relationship Address Phone VITO REYNA Next of Kin [address] [place] [address] MARIBELL VITO Emergency Contact [address] [place] [address] Insurance Providers: All historical and [...] Hurt's Name Patient's Relationship to Policy Hurt [facility] (WNR) MEDICARE ADVANTAGE [facility] (WNR) May 16, 2023 [id number] JEAN JAIN IN PATIENT Selected Encounter This section includes the information on record at [place] for the Encounter. Date/Time Encounter Type Encounter Description Reason Pro vider Source Aug 01, 2023 08:22 AM Outpatient Encounter EVENT (HISTORICAL) IHE Encounter Template Text not used by MT [...] Appointment Type Appointme nt Facility Name Aug 09, 2023 10:30 AM AMBULATORY - REHAB MEDICIN E [facility] Aug 22, 2023 11:15 AM AMBULATORY - [place] [facility] Aug 30, 2023 02:00 PM [facility] [place] [facility] [facility] Aug 31, 2023 04:15 PM [place] [place] [facility] [facility] Sep 08, 2023 09:30 AM AMBULATORY - NONE [facility] Sep 08, 2023 10:30 AM AMBULATORY - REHAB MEDICIN E [facility] September 22, 2023 10:39 AM [facility] September 27, 2023 10:30 AM AMBULATORY [facility]IATRY [facility] Nov 10, 2023 07:15 AM [facility] Nov 10, 2023 07:30 AM [facility] Jan 02, 2024 09:30 AM AMBULATORY - MEDICINE [facility] Jan 02, 2024 10:30 AM AMBULATORY - MEDICINE [facility] Active, Pending, and Scheduled Orders This section includes a listing of several types of active, pending, and scheduled orders, including clinic medications orders, diagnostic test orders, procedure orders and consult orders; where the start date of the order is 45 days before the date of the Encounter or 45 days after the date of theEncounter. The data comes from all [place] treatment facilities. Test Date/Time Test Type Test Details Facility Name Jul 21, 2023 12:00 AM Laboratory - Chemistry Order B 12 SERUM SP ONCE [facility] Sep 08, 2023 12:00 AM Laboratory - Chemistry Order COMPREHENSIVE METABOLIC PANEL+MG PLASMA SP ONCE [facility] Sep 08, 2023 12:00 AM Laboratory - Chemistry Order CBC BLOOD SP ONCE [facility] Lab Results: +/- 30 days of the encounter This section includes the Chemistry and Hematology Lab Results on record with [place] for the patient. Radiology Reports and Pathology Reports are provided separately, in subsequent sections. Lab Results This section contains the Chemistry/Hematology Results that were resulted 30 days before or 30 daysafter the date of the Encounter. Date/Time Source Result Type Result - Unit Interpretation Reference Range Comment Jul 07, 2023 09:52 AM [facility] RHEUMATOLOGY CHEM PANEL Specimen Type: PLASMA No comment entered. Ordering Provider: OSWALD PEREZ Report Released Date/Time: May 21, 2022 10:24 AM Reporting Lab: [place] [facility] [id number] Performing Lab: [facility] [id number] CREATININE 1.1 0.7-1.2 ALKALINE PHOSPHATASE 130 40-150 ALT/SGPT 71 H <55 AST/SGOT 91 H <34 C-REACTIVE PROTEIN 4.48 <5.00 .CREAT EGFR(CKD-EPI) 74 >60 Jul 07, 2023 09:52 AM [facility] RHEUMATOLOGY HEME PANEL Specimen Type: BLOOD Comment: Automated Differential Performed Ordering Provider: OSWALD PEREZ Report Released Date/Time: May 21, 2022 10:24 AM Reporting Lab: [facility] [id number] Performing Lab: [facility] [address] WBC 9.57 4.0-11.0 RBC 4.59 L 4.6-6.2 [...] 02, 2023 11:00 AM VA-TOBACCO FORMER USER [facility] Tobacco Use History This section includes a history of the smoking, or tobacco-related health factors, that were collected on or before the date of the Encounter. The data comes from the [place] facility where the Encounter took place. Date/Time Smoking Status/Tobacco Use Comment F acility Jun 02, 2023 11:00 AM VA-TOBACCO QUIT 5 TO < 15 YRS [facility] May 21, 2022 10:30 AM VA-TOBACCO FORMER USER [facility] May 21, 2022 10:30 AM VA-TOBACCO QUIT 15 YRS OR MORE [facility] Nov 12, 2020 12:00 PM VA-TOBACCO FORMER USER [facility] Nov 12, 2020 12:00 PM VA-TOBACCO QUIT 5 TO < 15 YRS [facility] May 31, 2019 06:22 AM INPT NO TOBACCO USE IN LAST 30 D AYS [facility] Nov 08, 2017 01:55 PM VA-TOBACCO FORMER USER [facility] Nov 08, 2017 01:55 PM VA-TOBACCO QUIT 1 TO < 5 YRS [facility] May 11, 2017 12:43 PM FORMER TOBACCO USE >1Y <7Y [facility] Aug 04, 2016 10:25 AM FORMER TOBACCO USE >1Y <7Y [facility] Aug 04, 2015 11:31 AM FORMER TOBACCO USE <1Y [facility] Aug 13, 2014 10:50 AM CURRENT TOBACCO USER [facility] October 10, 2013 09:12 AM FORMER TOBACCO USER 7Y OR GREATE R [facility] May 26, 2012 10:14 AM CURRENT TOBACCO USER [facility] Nov 19, 2009 12:07 PM CURRENT TOBACCO USER [facility] Advance Directives: All historical and current Section Date Range: From patient's date of to the date document was created. This section includes ALL of a patient's completed or amended [place] Advance and Rescinded Directives. The entries below indicate that a directive exists for the patient, but an actual copy is not included with this document. The data comes from all [place] facilities. Date Advance Directives Provider Source May 11, 2006 ADVANCE DIRECTIVE ASH RAZO [facility] Radiology Reports: +/- 30 days [...] HIP LEFT W/O CO NTRAST: CALVIN JAIN [id number] -1955 M Exm Date: JUL 21, 2023@08:27 Req Phys: HA HENDERSON Loc: [facility] PACT GRAPE WH 4D (Req'g Lo Img Loc: CT IMAGING Service: Unknown (Case [id number] COMPLETE) CT HIP LEFT W/O CONTRAST (CT Detailed) CPT:60894 Reason for Study: left hip pain Clinical [...] COMMENTS AVAILABLE...Refer to Interim Lab Report. Allergies: ([place] only) PENICILLIN (Nov 19, 2009) ZOLPIDEM (Dec 26, 2014) KENALONE INJECTION (40 MG/ML) (Oct 26, 2018) Report Status: Verified Date Reported: JUL 21, 2023 Date Verified: JUL 21, 2023 Flue Gas Analyst E-Sig:/ES/MARITZA CASTREJON MD Report: EXAMINATION: CT HIP [...] Primary Interpreting Staff: MARITZA CASTREJON MD, RADIOLOGIST (Flue Gas Analyst) /RTS MARITZA CASTREJON [facility]
--- OUTSIDE RECORDS SUMMARY | 2023-09-23 17:17 | XMS_ITS | Encounter Summary ---
Author Name [employer] Organization [employer] [facility] [employer] Address [address], [place] [address] Support Name Relationship Address Phone VITO REYNA Next of Kin [id number] [place] [address] MARIBELL VITO Emergency Contact [phone] [place] [address] Insurance Providers: All historical and [...] Hurt's Name Patient's Relationship to Policy Hurt [facility] (WNR) MEDICARE ADVANTAGE [facility] (WNR) May 16, 2023 [id number] JEAN JAIN IN PATIENT Selected Encounter This section includes the information on record at [facility] for the Encounter. Date/Time Encounter Type Encounter Description Reason Provider Source Aug 01, 2023 08:00 AM OFF/OP CNSLTJ NEW/EST LOW 30 ORTHO/JOINT SURG ICD-10-CM M25.552 Pain in left hip RENAE JOSEPH E Encounter Template Text not used by [place] Assessments - Encounter Diagnoses This section includes the primary and secondary diagnoses documented for the Encounter. Date/Time Primary/Secondary Diagnosis Diagnosis Name Provider Source Aug 01, 2023 11:48 AM PRIMARY Pain in left hip RENAE JOSEPH [facility] Aug 01, 2023 11:48 AM SECONDARY Trochanteric bursitis, left hip RENAE JOSEPH [facility] Plan of Treatment: Future Appointments (+ 6 months) and Future Tests (+/- 45 days) The Plan of Treatment section includes future care activities for the patient from [facility] This section includes future appointments and future orders which are active, pending or scheduled. Future Appointments This section includes appointments that were scheduled to occur 6 months from the date of the Encounter, up to a maximum of 20 appointments. The data comes from all [facility]. Appointment Date/Time Appointment Type Appointme nt Facility Name Aug 09, 2023 10:30 AM AMBULATORY - REHAB MEDICIN E [facility] Aug 22, 2023 11:15 AM [facility] Aug 30, 2023 02:00 PM [facility] Aug 31, 2023 04:15 PM AMBULATORY - SURG[place] [facility] Sep 08, 2023 09:30 AM [facility] Sep 08, 2023 10:30 AM AMBULATORY - REHAB MEDICIN E [facility] September 22, 2023 10:39 AM [facility] September 27, 2023 10:30 AM AMBULATORY - PSYCHIATRY [facility] Nov 10, 2023 07:15 AM [facility] Nov 10, 2023 07:30 AM [facility] Jan 02, 2024 09:30 AM [facility] Jan 02, 2024 10:30 AM AMBULATORY - MEDICINE [facility] Active, Pending, and Scheduled [...] theEncounter. The data comes from all [facility]. Test Date/Time Test Type Test Details Facility Name Jul 21, 2023 12:00 AM Laboratory - Chemistry Order B 12 SERUM SP ONCE [facility] Sep 08, 2023 12:00 AM Laboratory - Chemistry Order COMPREHENSIVE METABOLIC PANEL+MG PLASMA SP ONCE [facility] Sep 08, 2023 12:00 AM Laboratory - Chemistry Order CBC BLOOD SP ONCE [facility] Lab Results: +/- 30 days of the encounter This section includes the Chemistry and Hematology Lab Results on record with [facility] for the patient. Radiology Reports and Pathology Reports are provided separately, in subsequent sections. Lab Results This section contains the Chemistry/Hematology Results that were resulted 30 days before or 30 daysafter the date of the Encounter. Date/Time Source Result Type Result - Unit Interpretation Reference Range Comment Jul 07, 2023 09:52 AM [facility] RHEUMATOLOGY CHEM PANEL Specimen Type: PLASMA No comment entered. Ordering Provider: OSWALD PEREZ Report Released Date/Time: May 21, 2022 10:24 AM Reporting Lab: [facility] [id number] Performing Lab: [facility] [id number] CREATININE 1.1 0.7-1.2 ALKALINE PHOSPHATASE 130 40-150 ALT/SGPT 71 H <55 AST/SGOT 91 H <34 C-REACTIVE PROTEIN 4.48 <5.00 .CREAT EGFR(CKD-EPI) 74 >60 Jul 07, 2023 09:52 AM [facility] RHEUMATOLOGY HEME PANEL Specimen Type: BLOOD Comment: Automated Differential Performed Ordering Provider: OSWALD PEREZ Report Released Date/Time: May 21, 2022 10:24 AM Reporting Lab: [facility] [id number] Performing Lab: [facility] [id number] WBC 9.57 4.0-11.0 RBC 4.59 L 4.6-6.2 [...] and tobacco- related health factors from the [place] facility where the Encounter took place. Current Smoking Status This section includes the most current smoking, or tobacco-related health factor, from the [place] facility where the Encounter took place. Date/Time Current Smoking Status Comment Facil ity Jun 02, 2023 11:00 AM VA-TOBACCO QUIT 5 TO < 15 YRS [facility] Tobacco Use History This section includes a history of the smoking, or tobacco-related health factors, that were collected on or before the date of the Encounter. The data comes from the [place] facility where the Encounter took place. Date/Time Smoking Status/Tobacco Use Comment F acility Jun 02, 2023 11:00 AM VA-TOBACCO QUIT 5 TO < 15 YRS [facility] May 21, 2022 10:30 AM VA-TOBACCO FORMER USER [facility] May 21, 2022 10:30 AM VA-TOBACCO QUIT 15 YRS OR MORE [facility] Nov 12, 2020 12:00 PM VA-TOBACCO FORMER USER [facility] Nov 12, 2020 12:00 PM VA-TOBACCO QUIT 5 TO < 15 YRS [facility] May 31, 2019 06:22 AM INPT NO TOBACCO USE IN LAST 30 D AYS [facility] Nov 08, 2017 01:55 PM VA-TOBACCO FORMER USER [facility] Nov 08, 2017 01:55 PM VA-TOBACCO QUIT 1 TO < 5 YRS [facility] May 11, 2017 12:43 PM FORMER TOBACCO USE >1Y <7Y [facility] Aug 04, 2016 10:25 AM FORMER TOBACCO USE >1Y <7Y [facility] Aug 04, 2015 11:31 AM FORMER TOBACCO USE <1Y [facility] Aug 13, 2014 10:50 AM CURRENT TOBACCO USER [facility] October 10, 2013 09:12 AM FORMER TOBACCO USER 7Y OR GREATE R [facility] May 26, 2012 10:14 AM CURRENT TOBACCO USER [facility] Nov 19, 2009 12:07 PM CURRENT TOBACCO USER [facility] Advance Directives: All historical and current Section Date Range: From patient's date of to the date document was created. This section includes ALL of a patient's completed or amended [facility] Advance and Rescinded Directives. The entries below indicate that a directive exists for the patient, but an actual copy is not included with this document. The data comes from all [place] facilities. Date Advance Directives Provider Source May 11, 2006 ADVANCE DIRECTIVE ASH RAZO [facility] Radiology Reports: +/- 30 days of [...] the Encounter. The data comes from all [place] treatment facilities. Date/Time Radiology Report Provider Source Jul 21, 2023 08:[address] HIP LEFT W/O CO NTRAST: CALVIN JAIN [id number] -[id number] M Exm Date: JUL 21, 2023@08:27 Req Phys: HA HENDERSON [facility] (Req'g Lo Img Loc: CT IMAGING Service: Unknown (Case [id number] COMPLETE) CT HIP LEFT W/O CONTRAST (CT Detailed) CPT:61183 Reason for Study: left hip pain Clinical History: 68 yo M w/ hx of EtOH abuse, hx pelvic fracture/ multiple vertebral fractures: left anterior column posterior acetabular fracture, bilateral superior and inferior pubic rami fracture and T8/T11/L2/L3 endplate fractures. qualifies for empiric treatment for osteoporosis. no sx of radiculopathy. Neurosurgery here at the [place] commented that f/u x-rays on 12/10 show [...] COMMENTS AVAILABLE...Refer to Interim Lab Report. Allergies: ([place] only) PENICILLIN (Nov 19, 2009) ZOLPIDEM (Dec 26, 2014) KENALONE INJECTION (40 MG/ML) (Oct 26, 2018) Report Status: Verified Date Reported: JUL 21, 2023 Date Verified: JUL 21, 2023 Electric [employer] E-Sig:/ES/MARITZA CASTREJON MD Report: EXAMINATION: CT HIP [...] Primary Interpreting Staff: MARITZA CASTREJON MD, RADIOLOGIST (Electric [employer]) /RTS MARITZA CASTREJON [facility] Encounter Notes: All associated encounter notes This section contains the clinical notes associated to the Encounter. Date/Time Encounter Note(s) Provider Source Aug 01, 2023 09:44 AM ORTHOPEDIC SURGERY CONSULT: LOCAL TITLE: ORTHOPEDIC CONSULT STANDARD TITLE: ORTHOPEDIC SURGERY CONSULT DATE OF NOTE: AUG 01, 2023@09:44 ENTRY DATE: AUG 01, 2023@09:44:57 AUTHOR: RENAE JOSEPH COSIGNER: URGENCY: STATUS: COMPLETED PATIENT NAME: CALVIN JAIN SSN:[id number] DATE OF :Apr DATE OF SERVICE:08/01/23 08:00 CHIEF COMPLAINT: Left hip pain HISTORY OF PRESENT ILLNESS: 68-year-old male presenting today for evaluation of left hip pain. Patient had a fall down some stairs in July 2022. [place] [facility] which included T8, T11, L2, L3 vertebral fractures, bilateral pubic rami fractures as well as a left anterior column acetabulum fracture. He was last seen in orthopedics in January 2023, and fractures appear to have healed well. Patient was advancing his activity. Patient has concurrent rheumatoid arthritis, which has been managed with rheumatology in the past with prednisone, methotrexate, hydroxychloroquine, but overall joint symptoms have been stable to the point that he is not taking any DMARDs since October 2022. He has continued to have pain around his left hip however. The pain tends to be worse with weightbearing activity. When he is bearing weight he notes discomfort primarily over the lateral hip occasional radiation to the front pocket. It is typically an achy type discomfort. He states that as he walks his leg does feel weak and occasionally will feel like there is a blanket over the front of his thigh. He can feel a tingling on occasion in this distribution, but no numbness. Although he has felt some pain in his past his knee, this has not been consistent. X-rays that were done recently showed some mild degenerative narrowing, but there was a subtle crescent sign on the AP. A subsequent CT scan was done which did confirm the crescent sign with minimal flattening of the femoral head, mild atrophy of the gluteal musculature, and cystic changes in the anterior acetabulum, which is likely most consistent with the previously seen fracture. He presents today for further evaluation. 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) Compression fracture of thoracic spine (PAIN, NECK/CERVICALGIA (ICD-9-CM 723.1) Posttraumatic stress disorder ([facility] 36114Xmlg pain ([facility] [id number]) OEF/OIF EXPOSURE TO BURN PIT SMOKE (ICD-OEF/OIF EXPOSURE TO SANDSTORMS/DUSTSTORMS (ICD-10-CM R69.) Dyspnea on exertion ([facility] [id number]) Dyspnea on exertion ([facility] [id number]) Pain radiating to right side of chest (SHypertension ([facility] [id number]) Inflammatory polyarthritis ([facility] [id number] risk drug monitoring status ([facility] [id number]) Ethanol abuse ([facility] [id number]) Exposure to potentially hazardous substance ([facility] [id number]) MEDICATIONS: Active Outpatient Medications (including Supplies): Active [...] ACTIVE EVERY DAY FOR B12 SUPPLEMENT 7) FOLIC ACID 1MG TAB TAKE ONE TABLET BY MOUTH EVERY DAY ACTIVE FOR FOLIC ACID SUPPLEMENT 8) HYDROCHLOROTHIAZIDE 25MG TAB TAKE ONE TABLET BY MOUTH ACTIVE EVERY DAY FOR BLOOD PRESSURE 9) LIDOCAINE 5% PATCH APPLY 1 PATCH [...] PRIOR TO MEAL ON EMPTY STOMACH 13) PRAZOSIN HCL 1MG CAP TAKE ONE CAPSULE BY MOUTH AT ACTIVE BEDTIME --MAY INCREASE DOSE BY ONE CAPSULE EVERY 3 DAYS UP TO 5 CAPSULES NIGHTLY TOLERATED 14) THIAMINE 100MG TAB TAKE ONE TABLET BY MOUTH EVERY DAY ACTIVE FOR SUPPLEMENT 15) VORTIOXETINE 20MG TAB TAKE ONE TABLET BY MOUTH EVERY ACTIVE DAY Active Non-VA Medications Status 1) Non-VA ACETAMINOPHEN 325MG TAB 325MG MOUTH EVERY 6 ACTIVE HOURS NEEDED 2) Non-VA HYDROXYCHLOROQUINE SULFATE 200MG TAB 200MG ACTIVE MOUTH EVERY MORNING 3) Non-VA RESIDENTIAL MEDICATIONS MISCELLANEOUS ACTIVE 4) Non-VA OMEPRAZOLE 20MG EC CAP 20MG MOUTH EVERY DAY ACTIVE 5) Non-VA SIMVASTATIN 20MG TAB 20MG MOUTH AT BEDTIME ACTIVE 20 Total Medications ALLERGIES: PENICILLIN (Nov 19, 2009) ZOLPIDEM (Dec 26, 2014) KENALONE INJECTION (40 MG/ML) (Oct 26, 2018) SOCIAL HISTORY: Occupation: Not currently working Marital Status/Living Situation: Lives alone in [place] Tobacco Use: None Alcohol: 1 drink per day current PHYSICAL EXAM: VSD - Detailed Vitals Date Vital Measurement Qualifiers 07/07/2023 10:56 Temp F (C) 97.8 (36.6) Pulse 106 Respir 17 BP 130/88 Wt lbs (kg)[BMI] 243.5 (110.45)[35*] Pain 6 POx (L/Min)(%) 94 BMI: 34.5 EXAM: Pleasant 68-year-old male in no acute distress. He does walk with a left antalgic gait today without aid. Examination of his left lower extremity does show some tenderness over his greater trochanter. Active range of motion of the left hip shows forward elevation 95, external rotation 20, internal rotation 10 with pain at the extreme of all of these motions passively. Stinchfield maneuver does localize pain to the anterior lateral hip. His sensation is intact to light touch from L3-S1. Knee flexion/extension, ankle dorsiflexion/plantarflexion are all intact. IMAGING: X-rays of the left hip show mild superior lateral joint space narrowing. As mentioned above, there is a slight lucent area in the superior femoral head. CT scan as reviewed above ASSESSMENT: Left hip pain PLAN: Patient has had discomfort over his left hip for the last year. He did seem to be making good progress given his injuries, but has continued to have pain over the lateral hip. The pain does localize anterior lateral with passive range of motion of the left hip, which would point to an intra-articular source for the pain, and this would make sense given his CT scan which shows evidence of a crescent sign. He does also have a fair amount of edema in his acetabulum, which is due to the anterior column fracture healing. This may give good explanation for pain that he is feeling with weightbearing, but patient does have pain at rest as well that localizes to the lateral hip. It is worse if he lays on his left side or when he is riding in his truck. His exam did show some tenderness that localizes to the greater trochanteric region. Finally he does also have some symptoms that are radiating over his anterior thigh, which could be coming from the hip joint, but could also be coming from changes that are occurring in his lower back in the region of his compression fractures. We discussed with all these things going on at the same time, but knowing what to do with the next step would be trying to further differentiate the pain. I reviewed the case with Dr. Paniagua, and he noted the different changes on x-ray, but discussed that we could offer a trochanteric injection today and see what percentage of the pain improves. If it does not change the pain, then the next step would be consideration of an intra-articular injection into the left hip. If neither of these injections provide relief, then further work-up of his back through the pain clinic will be the next step. Patient would be open to trialing a trochanteric injection today. Informed consent was obtained through IMED consent. Patient wished to proceed. After formal timeout, the LEFT hip was prepped with chloroprep over site of maximal tenderness, and injected with 2 cc depomedrol 40 mg/ml and 6 cc 0.25 % bupivicaine without complication. I will arrange a phone follow-up in 2 to 3 weeks to assess his response. This note was entered using speech recognition software. Although I diligently review and edit my dictations, insensible words or phrases may be present. /ubaldo/ RENAE JOSEPH PA-C PHYSICIAN [employer] Signed: 08/01/2023 11:48 RENAE JOSEPH [facility]
--- OUTSIDE RECORDS SUMMARY | 2023-09-23 17:18 | XMS_ITS | Encounter Summary ---
Author Name Department of Vetera Affairs Organization Department of Vetera Affairs Address [address] [place] [address] Support Name Relationship Address Phone MARIBELL VITO Next of Kin [address] [place] [address] VITO RYENA Emergency Contact [address] [place] [address] Insurance Providers: All historical and [...] Patient's Relationship to Policy Hurt [facility] (WNR) MEDICARE ADVANTAGE [facility] (WNR) May 16, 2023 [id number] JEAN JAIN IN PATIENT Selected Encounter This section includes the information on record at [place] for the Encounter. Date/Time Encounter Type Encounter Description Reason Pro vider Source Aug 23, 2023 08:35 AM Outpatient Encounter TELEPHONE [facility] Encounter Template Text not used by [place] Plan of Treatment: Future Appointments (+ 6 months) and Future Tests (+/- 45 days) The Plan of Treatment section includes future care activities for the patient from all [place] treatmentfacilities. This section includes future appointments and future orders which are active, pending or scheduled. Future Appointments This section includes appointments that were scheduled to occur 6 months from the date of the Encounter, up to a maximum of 20 appointments. The data comes from all [place] treatment facilities. Appointment Date/Time Appointment Type Appointme nt Facility Name Aug 30, 2023 02:00 PM AMBULATORY - MEDICINE [facility] Aug 31, 2023 04:15 PM AMBULATORY - SURGERY [place] [facility] Sep 08, 2023 09:30 AM AMBULATORY - NONE [place] [facility] Sep 08, 2023 10:30 AM AMBULATORY - REHAB MEDICIN E [facility] September 22, 2023 10:39 AM AMBULATORY - MEDICINE [facility] September 27, 2023 10:30 AM AMBULATORY - PSYCHIATRY [facility] Nov 10, 2023 07:15 AM AMBULATORY - MEDICINE [facility] Nov 10, 2023 07:30 AM AMBULATORY - MEDICINE [facility] Jan 02, 2024 09:30 AM AMBULATORY - MEDICINE [facility] Jan 02, 2024 10:30 AM AMBULATORY - MEDICINE [facility] Active, Pending, and [...] of theEncounter. The data comes from all [facility] facilities. Test Date/Time Test Type Test Details Facility Name Jul 21, 2023 12:00 AM Laboratory - Chemistry Order B 12 SERUM SP ONCE [facility] Sep 08, 2023 12:00 AM Laboratory - Chemistry Order COMPREHENSIVE METABOLIC PANEL+MG PLASMA SP ONCE [facility] Sep 08, 2023 12:00 AM Laboratory - Chemistry Order CBC BLOOD SP ONCE [facility] September 22, 2023 01:58 PM Consult Order IF RESIDENTIAL REHABILITATION TREATMENT [facility] Cons Sales And Service Agent's Choice [facility] September 23, 2023 12:52 PM Laboratory - Microbiology Order CULTURE & SUSCEPTIBILITY SPUTUM WC ONCE [facility] September 23, 2023 12:52 PM Laboratory - Microbiology Order GRAM STAIN SPUTUM WC ONCE [facility] September 23, 2023 01:00 PM Laboratory - Microbiology Order CULTURE & SUSCEPTIBILITY BLOOD WC [facility] September 23, 2023 01:20 PM Laboratory - Microbiology Order CULTURE & SUSCEPTIBILITY BLOOD WC [facility] September 24, 2023 05:30 AM Laboratory - Chemistry Order CBC & DIFF BLOOD LC ONCE [facility] September 24, 2023 05:30 AM Laboratory - Chemistry Order D-DIMER PLASMA LC ONCE [facility] September 24, 2023 05:30 AM Laboratory - Chemistry Order LACTIC ACID PLASMA UNITS WC ONCE [facility] September 24, 2023 05:30 AM Laboratory - Chemistry Order COMPREHENSIVE METABOLIC PANEL+MG PLASMA LC [facility] Lab Results: +/- 30 days of the encounter This section includes the Chemistry and Hematology Lab Results on record with [place] for the patient. Radiology Reports and Pathology Reports are provided separately, in subsequent sections. Lab Results This section contains the Chemistry/Hematology Results that were resulted 30 days before or 30 daysafter the date of the Encounter. Date/Time Source Result Type Result - Unit Interpretation Reference Range Comment September 22, 2023 01:33 PM [facility] URINALYSIS Specimen Type: URINE No comment entered. Ordering Provider: RADHA DODD Report Released Date/Time: September 22, 2023 10:59 AM Reporting Lab: [facility] [id number] Performing Lab: [facility] [id number] URINE COLOR YELLOW SPECIFIC GRAVITY 1.032 1.003-1.03 [...] NEGATIVE NEGATIVE September 22, 2023 01:33 PM [facility] DRUG SCREEN PANEL,URINE Specimen Type: URINE Comment: Presumptive Positive by screen, results not confirmed. Ordering Provider: RADHA DODD Report Released Date/Time: September 22, 2023 10:59 AM Reporting Lab: [facility] [id number] Performing Lab: [facility] [id number] BARBITURATES Negative Negative AMPHETAMINES Negative Negative COCAINE Negative Negative BENZODIAZEPINES Negative Negative CANNABINOIDS Negative Negative METHADONE Negative Negative OPIATES POSITIVE H Negative PHENCYCLIDINE Negative Negative ETHANOL,URINE Negative Negative DRUG SCREEN CREAT 290.4 >20.0 OXYCODONE Negative Negative BUPRENORPHINE Negative Negative TRAMADOL Negative Negative FENTANYL Negative Negative September 22, 2023 01:33 PM [facility] COVID-19 AND FLU/RSV DIAG PANEL(CEPHEID) Specimen Typ e: NASOPHARYNGEAL Comment: Cepheid GeneXpert (618) Ordering Provider: RADHA DODD Report Released Date/Time: September 22, 2023 01:26 PM Reporting Lab: [facility] [id number] Performing Lab: [facility] [id number] COVID-19 (CEPHEID) Not Detected Not Detected INFLUENZA A (PCR) Not Detected Not Detected INFLUENZA B (PCR) Not Detected Not Detected RSV (PCR) Not Detected Not Detected September 22, 2023 10:55 AM [facility] EXTRA BLUE TUBE Specimen Type: PLASMA No comment entered. Ordering Provider: RADHA DODD Report Released Date/Time: September 22, 2023 11:04 AM Reporting Lab: [facility] [id number] Performing Lab: [facility] [id number] EXTRA BLUE TUBE RECEIVED September 22, 2023 10:55 AM [facility] LIPASE Specimen Type: PLASMA No comment entered. Ordering Provider: RADHA DODD Report Released Date/Time: September 22, 2023 10:59 AM Reporting Lab: [facility] [id number] Performing Lab: [facility] [address] LIPASE 27 <60 September 22, 2023 10:55 AM [facility] ETHANOL Specimen Type: PLASMA No comment entered. Ordering Provider: RADHA DODD Report Released Date/Time: September 22, 2023 10:59 AM Reporting Lab: [facility] [id number] Performing Lab: [facility] [id number] ETHANOL Negative NEGATIVE September 22, 2023 10:55 AM [facility] EXTRA GOLD GEL TUBE Specimen Type: SERUM No comment entered. Ordering Provider: RADHA DODD Report Released Date/Time: September 22, 2023 11:04 AM Reporting Lab: [facility] [id number] Performing Lab: [facility] [id number] EXTRA GOLD GEL TUBE RECEIVED September 22, 2023 10:55 AM [facility] COMPREHENSIVE METABOLIC PANEL+MG Specimen Type: PLASMA No comment entered. Ordering Provider: RADHA DODD Report Released Date/Time: September 22, 2023 10:59 AM Reporting Lab: [facility] [phone] Performing Lab: [facility] [id number] CREATININE 1.0 0.7-1.2 UREA NITROGEN 16 8-26 [...] 82 >60 September 22, 2023 10:55 AM [facility] CBC & DIFF Specimen Type: BLOOD Comment: Automated Differential Performed Ordering Provider: RADHA DODD Report Released Date/Time: September 22, 2023 10:59 AM Reporting Lab: [facility] [id number] Performing Lab: [facility] [id number] WBC 16.53 H 4.0-11.0 RBC 4.55 L [...] and tobacco- related health factors from the [place] facility where the Encounter took place. Current Smoking Status This section includes the most current smoking, or tobacco-related health factor, from the [place] facility where the Encounter took place. Date/Time Current Smoking Status Comment Facil ity Jun 02, 2023 11:00 AM VA-TOBACCO FORMER USER [facility] Tobacco Use History This section includes a history of the smoking, or tobacco-related health factors, that were collected on or before the date of the Encounter. The data comes from the [place] facility where the Encounter took place. Date/Time Smoking Status/Tobacco Use Comment F acility Jun 02, 2023 11:00 AM VA-TOBACCO QUIT 5 TO < 15 YRS [facility] May 21, 2022 10:30 AM VA-TOBACCO FORMER USER [facility] May 21, 2022 10:30 AM VA-TOBACCO QUIT 15 YRS OR MORE [facility] Nov 12, 2020 12:00 PM VA-TOBACCO FORMER USER [facility] Nov 12, 2020 12:00 PM VA-TOBACCO QUIT 5 TO < 15 YRS [facility] May 31, 2019 06:22 AM INPT NO TOBACCO USE IN LAST 30 D AYS [facility] Nov 08, 2017 01:55 PM VA-TOBACCO FORMER USER [facility] Nov 08, 2017 01:55 PM [place]-TOBACCO QUIT 1 TO < 5 YRS [facility] May 11, 2017 12:43 PM FORMER TOBACCO USE >1Y <7Y [facility] Aug 04, 2016 10:25 AM FORMER TOBACCO USE >1Y <7Y [facility] Aug 04, 2015 11:31 AM FORMER TOBACCO USE <1Y [facility] Aug 13, 2014 10:50 AM CURRENT TOBACCO USER [facility] October 10, 2013 09:12 AM FORMER TOBACCO USER 7Y OR GREATE R [facility] May 26, 2012 10:14 AM CURRENT TOBACCO USER [facility] Nov 19, 2009 12:07 PM CURRENT TOBACCO USER [facility] Advance Directives: All historical and current Section Date Range: From patient's date of to the date document was created. This section includes ALL of a patient's completed or amended [place] Advance and Rescinded Directives. The entries below indicate that a directive exists for the patient, but an actual copy is not included with this document. The data comes from all [facility]. Date Advance Directives Provider Source May 11, 2006 ADVANCE DIRECTIVE ASH RAZO [facility] Encounter Notes: All associated encounter notes This section contains the clinical notes associated to the Encounter. Date/Time Encounter Note(s) Provider Source Aug 25, 2023 11:43 AM ADDENDUM: LOCAL TITLE: Addendum STANDARD TITLE: ADDENDUM DATE OF NOTE: AUG 25, 2023@11:43:48 ENTRY DATE: AUG 25, 2023@11:43:50 AUTHOR: JP HOWELL EXP COSIGNER: URGENCY: STATUS: COMPLETED 4th Attempt- Called to (re)schedule appointment with provider. No answer, LVM to call ( ). No further attempts will be made to contact . /ubaldo/ JP HOWELL CHAIRMAN EMERITUS Signed: 08/25/2023 11:44 Receipt Acknowledged By: 08/25/2023 11:48 /ubaldo/ Mateo Patel MD Staff Psychiatrist --- Original Document --- 08/23/23 APPOINTMENT SCHEDULING NOTE: Attempted to schedule Return to clinic (RTC) Contact attempt made to 1st attempt Telephone 2nd attempt Letter - Sent letter by regular [place] mail to address on file: [address], [place] [address] Disposition order request after Aug Left message on voice mail to call back to this number [phone] Other: [facility] answered the first time write called but was disconnected. Attempted to contact again but it went to v/m. If [facility] calls back, schedule appt for: Return to [facility] PHONE RAFFI on or around ( September 19, 2023 ) for a total of 1 appointment(s) 30 min follow up, phone /samantha HOWELL CHAIRMAN EMERITUS Signed: 08/23/2023 08:44 08/24/2023 ADDENDUM STATUS: COMPLETED 3rd Attempt- Called to (re)schedule appointment with provider. No answer, LVM to call ( ). /ubaldo/ LULA SANTOS Corn Cutter Signed: 08/24/2023 14:16 JP HOWELL [facility] Aug 23, 2023 08:35 AM REPORT OF CONTACT: LOCAL TITLE: APPOINTMENT SCHEDULING NOTE STANDARD TITLE: REPORT OF CONTACT DATE OF NOTE: AUG 23, 2023@08:35 ENTRY DATE: AUG 23, 2023@08:35:51 AUTHOR: JP HOWELL EXP COSIGNER: URGENCY: STATUS: COMPLETED APPOINTMENT SCHEDULING NOTE Has ADDENDA Attempted to schedule Return to clinic (RTC) Contact attempt made to 1st attempt Telephone 2nd attempt Letter - Sent letter by regular [place] mail to address on file: [address] [place] [id number] Disposition order request after Aug Left message on voice mail to call back to this number [phone] Other: [facility] answered the first time write called but was disconnected. Attempted to contact again but it went to v/m. If [facility] calls back, schedule appt for: Return to [facility] PHONE RAFFI on or around ( September 19, 2023 ) for a total of 1 appointment(s) 30 min follow up, phone /ubaldo/ JP HOWELL CHAIRMAN EMERITUS Signed: 08/23/2023 08:44 08/24/2023 ADDENDUM STATUS: COMPLETED 3rd Attempt- Called to (re)schedule appointment with provider. No answer, LVM to call ( ). /ubaldo/ LULA SANTOS Corn Cutter Signed: 08/24/2023 14:16 08/25/2023 ADDENDUM STATUS: COMPLETED 4th Attempt- Called [facility] to (re)schedule appointment with provider. No answer, LVM to call ( ). No further attempts will be made to contact . /ubaldo/ JP HOWELL CHAIRMAN EMERITUS Signed: 08/25/2023 11:44 Receipt Acknowledged By: 08/25/2023 11:48 /ubaldo/ Mateo Patel MD Staff Psychiatrist LYNDAJP Gustavo [facility]
--- OUTSIDE RECORDS SUMMARY | 2023-09-23 17:18 | XMS_ITS | Encounter Summary ---
Author Name Department of Vetera Affairs Organization Department of Vetera ns Affairs Address [address] [place] [address] Support Name Relationship Address Phone VITO REYNA Next of Kin [address] [place] [address] VITO REYNA Emergency Contact [address] [place] [address] Insurance Providers: All historical and [...] Name Patient's Relationship to Policy Hurt [facility] (WNR) MEDICARE ADVANTAGE [facility] (WNR) May 16, 2023 [id number] JEAN JAIN IN PATIENT Selected Encounter This section includes the information on record at [place] for the Encounter. Date/Time Encounter Type Encounter Description Reason Pro vider Source Aug 09, 2023 10:30 AM Outpatient Encounter NEUROLOGY [facility] Encounter Template Text not used by [place] Plan of Treatment: Future Appointments (+ 6 months) and Future Tests (+/- 45 days) The Plan of Treatment section includes future care activities for the patient from all [place] treatmentfacilities. This section includes future appointments and future orders which are active, pending or scheduled. Future Appointments This section includes appointments that were scheduled to occur 6 months from the date of the Encounter, up to a maximum of 20 appointments. The data comes from all [place] treatment facilities. Appointment Date/Time Appointment Type Appointme nt Facility Name Aug 22, 2023 11:15 AM AMBULATORY - PS[facility]CHIATRY [facility] Aug 30, 2023 02:00 PM [facility] Aug 31, 2023 04:15 PM AMBULATORY - SURGERY [place] [facility] Sep 08, 2023 09:30 AM AMBULATORY - NONE [facility] Sep 08, 2023 10:30 AM AMBULATORY - REHAB MEDICIN E [facility] September 22, 2023 10:39 AM [facility] September 27, 2023 10:30 AM AMBULATORY - PSYCHIATRY [facility] Nov 10, 2023 07:15 AM [facility] Nov 10, 2023 07:30 AM [place]ORY [place]ICINE [place] [facility] Jan 02, 2024 09:30 AM AMBULATORY - MEDICINE [facility] Jan 02, 2024 10:30 AM AMBULATORY - MEDICINE [facility] Active, Pending, and Scheduled Orders This section includes a listing of several types of active, pending, and scheduled orders, including clinic medications orders, diagnostic test orders, procedure orders and consult orders; where the start date of the order is 45 days before the date of the Encounter or 45 days after the date of theEncounter. The data comes from all [facility] facilities. Test Date/Time Test Type Test Details Facility Name Jul 21, 2023 12:00 AM Laboratory - Chemistry Order B 12 SERUM SP ONCE [facility] Sep 08, 2023 12:00 AM Laboratory - Chemistry Order CBC BLOOD SP ONCE [facility] Sep 08, 2023 12:00 AM Laboratory - Chemistry Order COMPREHENSIVE METABOLIC PANEL+MG PLASMA SP ONCE [facility] September 22, 2023 01:58 PM Consult Order IF [facility] Cons Instructional Specialist's Choice [facility] September 23, 2023 12:52 PM Laboratory - Microbiology Order CULTURE & SUSCEPTIBILITY SPUTUM WC ONCE [facility] September 23, 2023 12:52 PM Laboratory - Microbiology Order GRAM STAIN SPUTUM WC ONCE [facility] September 23, 2023 01:00 PM Laboratory - Microbiology Order CULTURE & SUSCEPTIBILITY BLOOD [facility] September 23, 2023 01:20 PM Laboratory - Microbiology Order CULTURE & SUSCEPTIBILITY BLOOD [facility] Social History: Smoking Status (Most current) and Tobacco Use (All prior to encounter date) This section includes the most current, and the historical, smoking and tobacco- related health factors from the [place] facility where the Encounter took place. Current Smoking Status This section includes the most current smoking, or tobacco-related health factor, from the [place] facility where the Encounter took place. Date/Time Current Smoking Status Comment Facil ity Jun 02, 2023 11:00 AM VA-TOBACCO FORMER USER [facility] Tobacco Use History This section includes a history of the smoking, or tobacco-related health factors, that were collected on or before the date of the Encounter. The data comes from the [place] facility where the Encounter took place. Date/Time Smoking Status/Tobacco Use Comment F acility Jun 02, 2023 11:00 AM VA-TOBACCO QUIT 5 TO < 15 YRS [facility] May 21, 2022 10:30 AM VA-TOBACCO FORMER USER [facility] May 21, 2022 10:30 AM VA-TOBACCO QUIT 15 YRS OR MORE [facility] Nov 12, 2020 12:00 PM VA-TOBACCO FORMER USER [facility] Nov 12, 2020 12:00 PM VA-TOBACCO QUIT 5 TO < 15 YRS [facility] May 31, 2019 06:22 AM INPT NO TOBACCO USE IN LAST 30 D AYS [facility] Nov 08, 2017 01:55 PM VA-TOBACCO FORMER USER [facility] Nov 08, 2017 01:55 PM [place]-TOBACCO QUIT 1 TO < 5 YRS [facility] May 11, 2017 12:43 PM FORMER TOBACCO USE >1Y <7Y [facility] Aug 04, 2016 10:25 AM FORMER TOBACCO USE >1Y <7Y [facility] Aug 04, 2015 11:31 AM FORMER TOBACCO USE <1Y [facility] Aug 13, 2014 10:50 AM CURRENT TOBACCO USER [facility] October 10, 2013 09:12 AM FORMER TOBACCO USER 7Y OR GREATE R [facility] May 26, 2012 10:14 AM CURRENT TOBACCO USER [facility] Nov 19, 2009 12:07 PM CURRENT TOBACCO USER [facility] Advance Directives: All historical and current Section Date Range: From patient's date of to the date document was created. This section includes ALL of a patient's completed or amended [place] Advance and Rescinded Directives. The entries below indicate that a directive exists for the patient, but an actual copy is not included with this document. The data comes from all [facility]. Date Advance Directives Provider Source May 11, 2006 ADVANCE DIRECTIVE ASH RAZO [facility] Radiology Reports: +/- 30 days of [...] the Encounter. The data comes from all [place] treatment facilities. Date/Time Radiology Report Provider Source Jul 21, 2023 08:[address] HIP LEFT W/O CO NTRAST: [address] JAIN [id number] -[id number] M Exm Date: JUL 21, 2023@08:27 Req Phys: HA HENDERSON Loc: [facility] PACT GRAPE WH 4D (Req'g Lo Img Loc: CT IMAGING Service: Unknown (Case [id number] COMPLETE) CT HIP LEFT W/O CONTRAST (CT Detailed) CPT:22598 Reason for Study: left hip pain Clinical History: 68 yo M w/ hx of EtOH abuse, hx pelvic fracture/ multiple vertebral fractures: left anterior column posterior acetabular fracture, bilateral superior and inferior pubic rami fracture and T8/T11/L2/L3 endplate fractures. qualifies for empiric treatment for osteoporosis. no sx of radiculopathy. Neurosurgery here at the [place] commented that f/u x-rays on 12/10 show [...] COMMENTS AVAILABLE...Refer to Interim Lab Report. Allergies: ([place] only) PENICILLIN (Nov 19, 2009) ZOLPIDEM (Dec 26, 2014) KENALONE INJECTION (40 MG/ML) (Oct 26, 2018) Report Status: Verified Date Reported: JUL 21, 2023 Date Verified: JUL 21, 2023 Rim Roller Setter E-Sig:/ES/MARITZA CASTREJON MD Report: EXAMINATION: CT HIP [...] Primary Interpreting Staff: MARITZA CASTREJON MD, RADIOLOGIST (Rim Roller Setter) /MARITZA BHARDWAJ [facility] Encounter Notes: All associated encounter notes This section contains the clinical notes associated to the Encounter. Date/Time Encounter Note(s) Provider Source Aug 09, 2023 12:47 PM NO SHOW NOTE: LOCAL TITLE: NO SHOW/CANCELLATION CLINIC NOTE STANDARD TITLE: NO SHOW NOTE DATE OF NOTE: AUG 09, 2023@12:47 ENTRY DATE: AUG 09, 2023@12:48:14 AUTHOR: ZEE CHRISTOPHER COSIGNER: URGENCY: STATUS: COMPLETED not seen for scheduled appointment due to: No Show Appointment Rescheduled: Please review patient chart and medications for renewal needs (if appropriate). /ubaldo/ ZEE CHRISTOPHER DNP, HAND COUNTER-C NEUROLOGY NURSE PRACTITIONER Signed: 08/09/2023 12:48 ZEE CHRISTOPHER [facility]
--- OUTSIDE RECORDS SUMMARY | 2023-09-23 17:18 | XMS_ITS | Encounter Summary ---
Author Name [employer] Organization [facility] [employer] Address [address] [place] [address] Support Name Relationship Address Phone MARIBELLDIANEVITO Next of Kin [id number] [place] [address] VITO REYNA Emergency Contact [phone] [place] [address] Insurance Providers: All historical and [...] Hurt's Name Patient's Relationship to Policy Hurt [facility] (WNR) MEDICARE ADVANTAGE [facility] (WNR) May 16, 2023 [id number] JEAN JAIN IN PATIENT Selected Encounter This section includes the information on record at [place] for the Encounter. Date/Time Encounter Type Encounter Description Reason Provider Source Aug 22, 2023 11:15 AM Outpatient Encounter TELEPHONE ICD-10-CM F43.10 Post-traumatic stress disorder, unspecified CLAIRE PATEL Zeke Encounter Template Text not used by [place] Assessments - Encounter Diagnoses This section includes the primary and secondary diagnoses documented for the Encounter. Date/Time Primary/Secondary Diagnosis Diagnosis Name Provider Source Aug 22, 2023 11:15 AM PRIMARY Post-traumatic stress disorder, unspecified CLAIRE PATEL [facility] Aug 22, 2023 11:15 AM SECONDARY Alcohol abuse, uncomplicated CLAIRE PATEL [facility] Plan of Treatment: Future Appointments (+ 6 months) and Future Tests (+/- 45 days) The Plan of Treatment section includes future care activities for the patient from [facility] [place] [facility] This section includes future appointments and future orders which are active, pending or scheduled. Future Appointments This section includes appointments that were scheduled to occur 6 months from the date of the Encounter, up to a maximum of 20 appointments. The data comes from all [facility]. Appointment Date/Time Appointment Type Appointme nt Facility Name Aug 30, 2023 02:00 PM [facility] Aug 31, 2023 04:15 PM [facility] [place] [facility] Sep 08, 2023 09:30 AM AMBUL[place]ORY - [place]ONE [place] [facility] Sep 08, 2023 10:30 AM AMBULATORY - REHAB MEDICIN E [facility] September 22, 2023 10:39 AM AMBULATORY - MEDICINE [facility] September 27, 2023 10:30 AM AMBULATORY - PSYCHIATRY [facility] Nov 10, 2023 07:15 AM AMBULATORY - MEDICINE [facility] Nov 10, 2023 07:30 [facility] Jan 02, 2024 09:30 AM AMBULATORY - MEDICINE [facility] Jan 02, 2024 10:30 AM AMBULATORY - MEDICINE [facility] Active, Pending, and Scheduled Orders This section includes a listing of several types of active, pending, and scheduled orders, including clinic medications orders, diagnostic test orders, procedure orders and consult orders; where the start date of the order is 45 days before the date of the Encounter or 45 days after the date of theEncounter. The data comes from all [facility]. Test Date/Time Test Type Test Details Facility Name Jul 21, 2023 12:00 AM Laboratory - Chemistry Order B 12 SERUM SP ONCE [facility] Sep 08, 2023 12:00 AM Laboratory - Chemistry Order COMPREHENSIVE METABOLIC PANEL+MG PLASMA SP ONCE [facility] Sep 08, 2023 12:00 AM Laboratory - Chemistry Order CBC BLOOD SP ONCE [facility] September 22, 2023 01:58 PM Consult Order [facility] [place] Car Clerk's Choice [facility] September 23, 2023 12:52 PM Laboratory - Microbiology Order CULTURE & SUSCEPTIBILITY SPUTUM WC ONCE [facility] September 23, 2023 12:52 PM Laboratory - Microbiology Order GRAM STAIN SPUTUM WC ONCE [facility] September 23, 2023 01:00 PM Laboratory - Microbiology Order CULTURE & SUSCEPTIBILITY BLOOD WC [facility] September 23, 2023 01:20 PM Laboratory - Microbiology Order CULTURE & SUSCEPTIBILITY BLOOD WC [facility] September 24, 2023 05:30 AM Laboratory - Chemistry Order CBC & DIFF BLOOD LC ONCE [facility] September 24, 2023 05:30 AM Laboratory - Chemistry Order D-DIMER PLASMA LC ONCE [facility] September 24, 2023 05:30 AM Laboratory - Chemistry Order LACTIC ACID PLASMA UNITS WC ONCE [facility] September 24, 2023 05:30 AM Laboratory - Chemistry Order COMPREHENSIVE METABOLIC PANEL+MG PLASMA LC [facility] Social History: Smoking Status (Most current) and Tobacco Use (All prior to encounter date) This section includes the most current, and the historical, smoking and tobacco- related health factors from the [place] facility where the Encounter took place. Current Smoking Status This section includes the most current smoking, or tobacco-related health factor, from the [place] facility where the Encounter took place. Date/Time Current Smoking Status Comment Facil ity Jun 02, 2023 11:00 AM VA-TOBACCO FORMER USER [facility] Tobacco Use History This section includes a history of the smoking, or tobacco-related health factors, that were collected on or before the date of the Encounter. The data comes from the [place] facility where the Encounter took place. Date/Time Smoking Status/Tobacco Use Comment F acility Jun 02, 2023 11:00 AM VA-TOBACCO QUIT 5 TO < 15 YRS [facility] May 21, 2022 10:30 AM VA-TOBACCO FORMER USER [facility] May 21, 2022 10:30 AM VA-TOBACCO QUIT 15 YRS OR MORE [facility] Nov 12, 2020 12:00 PM VA-TOBACCO FORMER USER [facility] Nov 12, 2020 12:00 PM VA-TOBACCO QUIT 5 TO < 15 YRS [facility] May 31, 2019 06:22 AM INPT NO TOBACCO USE IN LAST 30 D AYS [facility] Nov 08, 2017 01:55 PM VA-TOBACCO FORMER USER [facility] Nov 08, 2017 01:55 PM VA-TOBACCO QUIT 1 TO < 5 YRS [facility] May 11, 2017 12:43 PM FORMER TOBACCO USE >1Y <7Y [facility] Aug 04, 2016 10:25 AM FORMER TOBACCO USE >1Y <7Y [facility] Aug 04, 2015 11:31 AM FORMER TOBACCO USE <1Y [facility] Aug 13, 2014 10:50 AM CURRENT TOBACCO USER [facility] October 10, 2013 09:12 AM FORMER TOBACCO USER 7Y OR AHSAN R [facility] May 26, 2012 10:14 AM CURRENT TOBACCO USER [facility] Nov 19, 2009 12:07 PM CURRENT TOBACCO USER [facility] Advance Directives: All historical and current Section Date Range: From patient's date of to the date document was created. This section includes ALL of a patient's completed or amended [place] Advance and Rescinded Directives. The entries below indicate that a directive exists for the patient, but an actual copy is not included with this document. The data comes from all [place] facilities. Date Advance Directives Provider Source May 11, 2006 ADVANCE DIRECTIVE ASH RAZO [facility] Encounter Notes: All associated encounter notes This section contains the clinical notes associated to the Encounter. Date/Time Encounter Note(s) Provider Source Aug 22, 2023 10:13 AM PSYCHIATRY E & M NOTE: LOCAL TITLE: PSYCHIATRIC EVALUATION & MANAGEMENT STANDARD TITLE: PSYCHIATRY E & M NOTE DATE OF NOTE: AUG 22, 2023@10:13 ENTRY DATE: AUG 22, 2023@10:13:28 AUTHOR: MATEO PATEL EXP COSIGNER: URGENCY: STATUS: COMPLETED TELEPSYCHIATRIC EVALUATION AND MANAGEMENT FOLLOWUP VISIT Patient verbally consented to a telephone appointment. Start Time: 1115 End Time: 1145 Time spent on phone call was between 20 to 30 minutes Patient's current location: At the home address on file. Emergency number: See numbers on file. Physician/Health Care Personnel: Mateo Patel MD ------ IDENTIFICATION: CALVIN JAIN is a 68 year old seen for follow up visit with the following mental health diagnoses: Posttraumatic stress disorder, chronic Alcohol use disorder, severe ASSESSMENT: CALVIN JAIN reports some increased anxiety in the context of abstaining from alcohol for the past 7 days. He reports some withdrawal symptoms that are improving including tremor, nausea and loose stools. He reports good adherence to his prescribed medications including naltrexone and notes no nightmares for the past 10 days with prazosin. He reports significant improvements in sleep and is still awaiting a replacement CPAP and was encouraged to follow-up with sleep clinic regarding this. He notes review stressors with improved finances and stable chronic pain symptoms. He denies any other substance use, SI or safety concerns. We discussed treatment and sober support options including ARS referral, [facility], AA and RRTP. He expressed interest in inpatient RRTP and contact information will be provided today. He was encouraged to engage in local AA resources in [place] as he prefers in person support. No medication changes indicated PLAN: Continue prazosin 5 mg nightly for nightmares Continue vortioxetine 20 mg daily for mood Leave voicemail with RRTP contact number [phone] FUTURE CONSIDERATIONS: Vortioxetine 20 mg typical max dose. On naltrexone via PCP RTC: 4 weeks, phone Patient demonstrated readiness to learn; stated understanding of education/plan provided at this encounter; denies further questions; and agrees with plan. Patient expressed understanding that they can call me or return for care sooner should they have side effects from medications, an increase in symptoms or other clinical concerns. ------ Chart reviewed since last visit. The following is obtained from the patient and chart review. INTERVAL HISTORY: Since the last visit, CALVIN JAIN reports: - General/Mood: sleeping a lot better, some anxiety. Reports withdrawal symptoms from alcohol including tremor, nausea and loose stools that are improving. - Meds: no nightmares for 1.5 weeks. - Sleep: 10 hrs TST, feel good about improved sleep. Awaiting CPAP, planning to call and follow up. - Stress: Finances improved - Health: Chronic pain stable, improved after injection - Drug/alcohol use: No alcohol for 7 days. Considering EtOH treatment. no other substance use. Reports a binge of alcohol in 07/2023 - Safety: denies SI or safety concerns - Psychosis: denies - Therapy: Considering AA in [place], [place]. TREATMENT HISTORY: 02/24/23: Self discontinued bupropion d/t lack of efficacy. Doxepin discontinued d/t lack of efficacy and possible hallucinations 05/19/22: Started lamotrigine titration 07/21/23: Discontinue lamotrigine (not started), discontinue eszopiclone, start prazosin titration 08/22/2023: RRTP referral, contact information provided MEDICATIONS: Active Outpatient Medications (including Supplies): Active [...] ACTIVE EVERY DAY FOR B12 SUPPLEMENT 5) FOLIC ACID 1MG TAB TAKE ONE TABLET BY MOUTH EVERY DAY ACTIVE FOR FOLIC ACID SUPPLEMENT 6) HYDROCHLOROTHIAZIDE 25MG TAB TAKE ONE TABLET BY MOUTH ACTIVE EVERY DAY FOR BLOOD PRESSURE 7) LIDOCAINE 5% PATCH APPLY 1 PATCH TOPICALLY EVERY DAY ACTIVE NEEDED FOR UP TO 12 HOURS FOR PAIN IN 8) MAGNESIUM OXIDE 420MG TAB TAKE ONE TABLET BY MOUTH AT ACTIVE BEDTIME FOR MAGNESIUM SUPPLEMENT 9) NALTREXONE (EQV-REVIA) 50MG TAB TAKE ONE TABLET BY ACTIVE MOUTH EVERY DAY FOR SOBRIETY 10) OMEPRAZOLE 20MG EC CAP TAKE ONE CAPSULE BY MOUTH ACTIVE EVERY DAY FOR STOMACH ACID - TAKE AT LEAST 30 MIN PRIOR TO MEAL ON EMPTY STOMACH 11) PRAZOSIN HCL 1MG CAP TAKE ONE CAPSULE BY MOUTH AT ACTIVE BEDTIME --MAY INCREASE DOSE BY ONE CAPSULE EVERY 3 DAYS UP TO 5 CAPSULES NIGHTLY TOLERATED 12) THIAMINE 100MG TAB TAKE ONE TABLET BY MOUTH EVERY DAY ACTIVE FOR SUPPLEMENT 13) VORTIOXETINE 20MG TAB TAKE ONE TABLET BY MOUTH EVERY ACTIVE DAY Active Non-VA Medications Status 1) Non-VA ACETAMINOPHEN 325MG TAB 325MG MOUTH EVERY 6 ACTIVE HOURS NEEDED 2) Non-VA HYDROXYCHLOROQUINE SULFATE 200MG TAB 200MG ACTIVE MOUTH EVERY MORNING 3) Non-VA SENIOR LIVING MEDICATIONS MISCELLANEOUS ACTIVE 4) Non-VA OMEPRAZOLE 20MG EC CAP 20MG MOUTH EVERY DAY ACTIVE 5) Non-VA SIMVASTATIN 20MG TAB 20MG MOUTH AT BEDTIME ACTIVE 18 Total Medications ALLERGIES: PENICILLIN (Nov 19, 2009) [...] WBC 9.57 (07/07/23) PLT 202 (07/07/23) PSYCHIATIC EXAMINATION (limited due to phone evaluation): -General: Alert, call, cooperative. -Orientation: Alert to person, place and time. -Cognition/Memory: Intact, no evidence of memory problems -Speech: Normal rate and rhythm, coherent. -Mood: Anxious -Thought Process/Content: Goal-directed, linear. Denies SI/HI. -Delusions: No. -Sensorium/Perceptual Disturbance: Clear. No evidence of auditory and/or visual hallucinations. -Insight/Judgment: Intact -Attention: Intact. SAFETY ASSESSMENT: - Risks: male, MH dx, hx etoh use disorder, recent abstinence - Protective Factors: mood improved, denies SI, support from spouse/family, has social support, spiritual jayda, stable financial/living situation, no elevated etoh/substance use, future-oriented, intact reality testing, connected to providers, no hx of SAs - Assessment: Acute risk: Low Chronic Risk: low - Attending appointments, following recommendations, and compliant with prescribed psychiatric meds. Suicide Screen: C-SSRS Screening [place]-Suicide Severity Rating Scale (C-SSRS Screener) 1. Over the past month, have you wished you were or wished you could go to sleep and not wake up? No 2. Over the past month, have you had any actual thoughts of killing yourself? Yes 3. Over the past month, have you been thinking about how you might do this? No 4. Over the past month, have you had these thoughts and had some intention of acting on them? No 5. Over the past month, have you started to work out or worked out the details of how to kill yourself? No 6. If yes, at any time in the past month did you intend to carry out this plan? Response not required due to responses to other questions. 7. In your lifetime, have you ever done anything, started to do anything, or prepared to do anything to end your life (for example, collected pills, obtained a gun, gave away valuables, went to the roof but didn't jump)? Yes 8. If YES, was this within the past 3 months? No /ubaldo/ Mateo Patel MD Staff Psychiatrist Signed: 08/22/2023 11:46 MATEO PATEL [facility]
--- OUTSIDE RECORDS SUMMARY | 2023-09-23 17:19 | XMS_ITS | Encounter Summary ---
Author Name [employer] [facility] [employer] Organization [facility] Address [address] [place] [address] Support Name Relationship Address Phone MARIBELLDIANEVITO Next of Kin [address] [place] [address] MARIBELL, VITO Emergency Contact [address] [place] [address] Insurance Providers: All historical and [...] Hurt's Name Patient's Relationship to Policy Hurt [facility] (WNR) MEDICARE ADVANTAGE [facility] (WNR) May 16, 2023 [id number] JEAN JAIN IN PATIENT Selected Encounter This section includes the information on record at [facility] for the Encounter. Date/Time Encounter Type Encounter Description Reason Provider Source Aug 31, 2023 04:15 PM Outpatient Encounter TELEPHONE/SURGERY ICD-10-CM M25.552 Pain in left hip RENAE JOSEPH IHE Encounter Template Text not used by ME Assessments - Encounter Diagnoses This section includes the primary and secondary diagnoses documented for the Encounter. Date/Time Primary/Secondary Diagnosis Diagnosis Name Provider Source Aug 31, 2023 04:15 PM PRIMARY Pain in left hip RENAE JOSEPH [facility] Plan of Treatment: Future Appointments (+ 6 months) and Future Tests (+/- 45 days) The Plan of Treatment section includes future care activities for the patient from all [facility] treatmentfacilities. This section includes future appointments and future orders which are active, pending or scheduled. Future Appointments This section includes appointments that were scheduled to occur 6 months from the date of the Encounter, up to a maximum of 20 appointments. The data comes from all [facility]. Appointment Date/Time Appointment Type Appointme nt Facility Name Sep 08, 2023 09:30 AM AMBULATORY - NONE [place] [facility] Sep 08, 2023 10:30 AM AMBULATORY - REHAB MEDICIN E [facility] September 22, 2023 10:39 AM AMBULATORY - MEDICINE [facility] September 27, 2023 10:30 AM AMBULATORY - PSYCHIATRY [facility] Nov 10, 2023 07:15 AM AMBULATORY - MEDICINE [facility] Nov 10, 2023 07:30 AM AMBULATORY - MEDICINE [facility] Jan 02, 2024 09:30 AM AMBULATORY - MEDICINE [facility] Jan 02, 2024 10:30 AM AMBULATORY - MEDICINE [facility] Active, Pending, and Scheduled Orders This section includes a listing of several types of active, pending, and scheduled orders, including clinic medications orders, diagnostic test orders, procedure orders and consult orders; where the start date of the order is 45 days before the date of the Encounter or 45 days after the date of theEncounter. The data comes from all [facility]. Test Date/Time Test Type Test Details Facility Name Jul 21, 2023 12:00 AM Laboratory - Chemistry Order B 12 SERUM SP ONCE [facility] Sep 08, 2023 12:00 AM Laboratory - Chemistry Order COMPREHENSIVE METABOLIC PANEL+MG PLASMA SP ONCE [facility] Sep 08, 2023 12:00 AM Laboratory - Chemistry Order CBC BLOOD SP ONCE [facility] September 22, 2023 01:58 PM Consult Order IF RESIDENTIAL REHABILITATION TREATMENT PROGRAM[facility] Cons Equine Pharmacology Technician's Choice [facility] September 23, 2023 12:52 PM Laboratory - Microbiology Order GRAM STAIN SPUTUM WC ONCE [facility] September 23, 2023 12:52 PM Laboratory - Microbiology Order CULTURE & SUSCEPTIBILITY SPUTUM WC ONCE [facility] September 23, 2023 01:00 PM Laboratory - Microbiology Order CULTURE & SUSCEPTIBILITY BLOOD [facility] September 23, 2023 01:20 PM Laboratory - Microbiology Order CULTURE & SUSCEPTIBILITY BLOOD [facility] September 24, 2023 05:30 AM Laboratory - Chemistry Order CBC & DIFF BLOOD LC ONCE [facility] September 24, 2023 05:30 AM Laboratory - Chemistry Order D-DIMER PLASMA LC ONCE [facility] September 24, 2023 05:30 AM Laboratory - Chemistry Order LACTIC ACID PLASMA UNITS WC ONCE [facility] September 24, 2023 05:30 AM Laboratory - Chemistry Order COMPREHENSIVE METABOLIC PANEL+MG PLASMA LC [facility] Lab Results: +/- 30 days of [...] Range Comment September 23, 2023 02:30 PM [facility] EXTRA MINT TUBE Specimen Type: PLASMA No comment entered. Ordering Provider: REVA ROSS Report Released Date/Time: September 23, 2023 02:49 PM Reporting Lab: [facility] [phone] Performing Lab: [facility] [phone] EXTRA MINT TUBE RECEIVED September 23, 2023 04:15 AM [facility] C-REACTIVE PROTEIN Specimen Type: PLASMA No comment entered. Ordering Provider: WANDA BOWSER Report Released Date/Time: September 23, 2023 04:10 AM Reporting Lab: [facility] [phone] Performing Lab: [facility] [address] C-REACTIVE PROTEIN 81.34 H <5.00 September 23, 2023 04:15 AM [facility] PROCALCITONIN Specimen Type: PLASMA No comment entered. Ordering Provider: WANDA BOWSER Report Released Date/Time: September 23, 2023 04:10 AM Reporting Lab: [facility] [phone] Performing Lab: [facility] [phone] PROCALCITONIN 0.11 H <0.09 September 23, 2023 04:15 AM [facility] LIPASE Specimen Type: PLASMA No comment entered. Ordering Provider: REVA ROSS Report Released Date/Time: September 23, 2023 12:52 PM Reporting Lab: [facility] [phone] Performing Lab: [facility] [address] LIPASE 12 <60 September 23, 2023 04:15 AM [facility] CBC Specimen Type: BLOOD No comment entered. Ordering Provider: WANDA BOWSER Report Released Date/Time: September 23, 2023 04:10 AM Reporting Lab: [facility] [phone] Performing Lab: [facility] [address] WBC 12.24 H 4.0-11.0 RBC 3.93 L 4.6-6.2 HGB 13.9 13.5-17.9 HCT 39.8 L 41-54 MCV 101.3 H 80-100 MCH 35.4 H 27-33 MCHC 34.9 32.0-37.5 PLT 236 150-400 MPV 9.3 7.4-10.4 RDW 12.0 11.5-14.5 September 23, 2023 04:15 AM [facility] COMPREHENSIVE METABOLIC PANEL+MG Specimen Type: PLASMA No comment entered. Ordering Provider: WANDA BOWSER Report Released Date/Time: September 23, 2023 04:10 AM Reporting Lab: [facility] [phone] Performing Lab: [facility] [address] CREATININE 1.1 0.7-1.2 UREA NITROGEN 16 8-26 [...] 74 >60 September 22, 2023 01:33 PM [facility] URINALYSIS Specimen Type: URINE No comment entered. Ordering Provider: RADHA DODD Report Released Date/Time: September 22, 2023 10:59 AM Reporting Lab: [facility] [phone] Performing Lab: [facility] [phone] URINE COLOR YELLOW SPECIFIC GRAVITY 1.032 1.003-1.03 [...] NEGATIVE NEGATIVE September 22, 2023 01:33 PM [facility] DRUG SCREEN PANEL,URINE Specimen Type: URINE Comment: Presumptive Positive by screen, results not confirmed. Ordering Provider: RADHA DODD Report Released Date/Time: September 22, 2023 10:59 AM Reporting Lab: [facility] [phone] Performing Lab: [facility] [phone] BARBITURATES Negative Negative AMPHETAMINES Negative Negative COCAINE Negative Negative BENZODIAZEPINES Negative Negative CANNABINOIDS Negative Negative METHADONE Negative Negative OPIATES POSITIVE H Negative PHENCYCLIDINE Negative Negative ETHANOL,URINE Negative Negative DRUG SCREEN CREAT 290.4 >20.0 OXYCODONE Negative Negative BUPRENORPHINE Negative Negative TRAMADOL Negative Negative FENTANYL Negative Negative September 22, 2023 01:33 PM [facility] COVID-19 AND FLU/RSV DIAG PANEL(CEPHEID) Specimen Typ e: NASOPHARYNGEAL Comment: Cepheid GeneXpert (618) Ordering Provider: RADHA DODD Report Released Date/Time: September 22, 2023 01:26 PM Reporting Lab: [facility] [phone] Performing Lab: [facility] [phone] COVID-19 (CEPHEID) Not Detected Not Detected INFLUENZA A (PCR) Not Detected Not Detected INFLUENZA B (PCR) Not Detected Not Detected RSV (PCR) Not Detected Not Detected September 22, 2023 10:55 AM [facility] EXTRA BLUE TUBE Specimen Type: PLASMA No comment entered. Ordering Provider: RADHA DODD Report Released Date/Time: September 22, 2023 11:04 AM Reporting Lab: [facility] [phone] Performing Lab: [facility] [phone] EXTRA BLUE TUBE RECEIVED September 22, 2023 10:55 AM [facility] LIPASE Specimen Type: PLASMA No comment entered. Ordering Provider: RADHA DODD Report Released Date/Time: September 22, 2023 10:59 AM Reporting Lab: [facility] [phone] Performing Lab: [facility] [phone] LIPASE 27 <60 September 22, 2023 10:55 AM [facility] ETHANOL Specimen Type: PLASMA No comment entered. Ordering Provider: RADHA DODD Report Released Date/Time: September 22, 2023 10:59 AM Reporting Lab: [facility] [phone] Performing Lab: [facility] [phone] ETHANOL Negative NEGATIVE September 22, 2023 10:55 AM [facility] EXTRA GOLD GEL TUBE Specimen Type: SERUM No comment entered. Ordering Provider: RADHA DODD Report Released Date/Time: September 22, 2023 11:04 AM Reporting Lab: [facility] [phone] Performing Lab: [facility] [phone] EXTRA GOLD GEL TUBE RECEIVED September 22, 2023 10:55 AM [facility] COMPREHENSIVE METABOLIC PANEL+MG Specimen Type: PLASMA No comment entered. Ordering Provider: RADHA DODD Report Released Date/Time: September 22, 2023 10:59 AM Reporting Lab: [facility] [phone] Performing Lab: [facility] [phone] CREATININE 1.0 0.7-1.2 UREA NITROGEN 16 8-26 [...] 82 >60 September 22, 2023 10:55 AM [facility] CBC & DIFF Specimen Type: BLOOD Comment: Automated Differential Performed Ordering Provider: RADHA DODD Report Released Date/Time: September 22, 2023 10:59 AM Reporting Lab: [facility] [phone] Performing Lab: [facility] [address] WBC 16.53 H 4.0-11.0 RBC 4.55 L [...] 02, 2023 11:00 AM VA-TOBACCO FORMER USER [facility] Tobacco Use History This section includes a history of the smoking, or tobacco-related health factors, that were collected on or before the date of the Encounter. The data comes from the [place] facility where the Encounter took place. Date/Time Smoking Status/Tobacco Use Comment F denny Jun 02, 2023 11:00 AM VA-TOBACCO QUIT 5 TO < 15 YRS [facility] May 21, 2022 10:30 AM VA-TOBACCO FORMER USER [facility] May 21, 2022 10:30 AM VA-TOBACCO QUIT 15 YRS OR MORE [facility] Nov 12, 2020 12:00 PM VA-TOBACCO FORMER USER [facility] Nov 12, 2020 12:00 PM VA-TOBACCO QUIT 5 TO < 15 YRS [facility] May 31, 2019 06:22 AM INPT NO TOBACCO USE IN LAST 30 D AYS [facility] Nov 08, 2017 01:55 PM VA-TOBACCO FORMER USER [facility] Nov 08, 2017 01:55 PM VA-TOBACCO QUIT 1 TO < 5 YRS [facility] May 11, 2017 12:43 PM FORMER TOBACCO USE >1Y <7Y [facility] Aug 04, 2016 10:25 AM FORMER TOBACCO USE >1Y <7Y [facility] Aug 04, 2015 11:31 AM FORMER TOBACCO USE <1Y [facility] Aug 13, 2014 10:50 AM CURRENT TOBACCO USER [facility] October 10, 2013 09:12 AM FORMER TOBACCO USER 7Y OR GREATE R [facility] May 26, 2012 10:14 AM CURRENT TOBACCO USER [facility] Nov 19, 2009 12:07 PM CURRENT TOBACCO USER [facility] Advance Directives: All historical and current [...] May 11, 2006 ADVANCE DIRECTIVE ASH RAZO [facility] Radiology Reports: +/- 30 days of [...] 23, 2023 01:38 PM CHEST 1 VIEW: SUSYCALVIN PIOTR [id number] M Exm Date: SEPTEMBER 23, 2023@13:38 Req Phys: REVA ROSS Pat Loc: 309-23-2023@14:51 Img Loc: MAIN X-RAY Service: [place] [address] (Case [id number] COMPLETE) CHEST 1 VIEW (RAD Detailed) CPT:49637 Proc Modifiers : PORTABLE EXAM Reason for Study: see below Clinical History: IS NOT under investigation for COVID-19 or is COVID-19 negative SIRS criteria, no overt sx, please r/o any opacities Responsible provider name and phone number to notify for critical findings if other than user placing the order and pager listed below: User placing orders pager: [phone] LAST CREATININE 1.1 (09/23/23) Report Status: Verified Date Reported: SEPTEMBER 23, 2023 Date Verified: SEPTEMBER 23, 2023 Coal Tram Driver E-Sig:/ES/JANETH OROZCO DO Report: EXAMINATION: CHEST 1 VIEW Reason for Study: see below IS NOT under investigation for COVID-19 or is COVID-19 negative SIRS criteria, no overt sx, please r/o any opacities Responsible provider name and phone number to notify for critical findings if other than user placing the order and pager listed below: User placing orders pager: [phone] LAST CREATININE 1.1 (09/23/23) see below TECHNIQUE: [...] Primary Interpreting Staff: JANETH OROZCO DO, RADIOLOGIST (Coal Tram Driver) /JANETH RASHEED [facility] Encounter Notes: All associated encounter notes This section contains the clinical notes associated to the Encounter. Date/Time Encounter Note(s) Provider Source Aug 31, 2023 04:19 PM ORTHOPEDIC SURGERY ATTENDING NOTE: LOCAL TITLE: ORTHOPEDIC CLINIC NOTE STANDARD TITLE: ORTHOPEDIC SURGERY ATTENDING NOTE DATE OF NOTE: AUG 31, 2023@16:19 ENTRY DATE: AUG 31, 2023@16:19:12 AUTHOR: RENAE JOSEPH EXP COSIGNER: URGENCY: STATUS: COMPLETED PATIENT NAME: CALVIN JAIN DATE OF SERVICE: 08/31/23 16:15 CALVIN JAIN was contacted via the provider phone clinic in follow up. He was free to discuss medical matters. 68-year-old male who was seen about 1 month ago for persistent pain around his left hip. Patient had a fall down some stairs in July 2022. He was seen and managed at [facility] for multiple injuries which included T8, T11, L2, L3 vertebral fractures, bilateral pubic rami fractures as well as a left anterior column acetabulum fracture. He had follow-up last in January 2023 at [facility], and at that time fractures appear well-healed. In July 2023, he was describing symptoms that would start in the lateral hip with occasional radiation to the front pocket. He describes it as a achy type discomfort, and when he walks his leg does feel weak and occasionally will feel like there is a blanket over the front of his thigh. We discussed that there were possibly 3 possible sources for his pain including trochanteric bursitis, persistent intra-articular inflammation, versus radicular type symptoms. We arrange this follow-up today to check in on a trochanteric injection that we performed in July to see what percentage of his pain improved. He reports that the pain is about 20% improved. He has a easier time going up and down stairs, but does continue to get pain towards and into his lower back. We had discussed that if the pain did not completely go away and that we could consider a intra-articular injection into the left hip. We had discussed the risks of the last visit, patient would be interested in pursuing this on a one-time basis. Orders will be placed towards the injection, we will arrange follow-up via the phone clinic to 4 weeks after the injection. Time of call, 4 minutes, 7 minutes total of review and call. This note was entered using speech recognition software. Although I diligently review and edit my dictations, insensible words or phrases may be present. /ubaldo/ RENAE JOSEPH PA-C PHYSICIAN [employer] Signed: 08/31/2023 16:25 RENAE JOSEPH [facility]
--- OUTSIDE RECORDS SUMMARY | 2023-09-23 17:19 | XMS_ITS | Encounter Summary ---
Author Name [employer] [facility] [employer] Organization [facility] Address [address] [place] [address] Support Name Relationship Address Phone MARIBELL VITO Next of Kin [id number] [place] [address] MARIBELL, VITO Emergency Contact [address] [place] [address] Insurance Providers: All historical and [...] Name Patient's Relationship to Policy Hurt [facility] (WNR) MEDICARE ADVANTAGE [facility] (WNR) May 16, 2023 [id number] JEAN JAIN IN PATIENT Selected Encounter This section includes the information on record at [place] for the Encounter. Date/Time Encounter Type Encounter Description Reason Provider Source Aug 30, 2023 02:00 PM Outpatient Encounter TELEPHONE PRIMARY CARE ICD-10-CM F10.10 Alcohol abuse, uncomplicated VAN VRANKEN,GIORGIO MIN E [facility] Encounter Template Text not used by [place] Assessments - Encounter Diagnoses This section includes the primary and secondary diagnoses documented for the Encounter. Date/Time Primary/Secondary Diagnosis Diagnosis Name Provider Source Aug 30, 2023 02:00 PM PRIMARY Alcohol abuse, uncomplicated VAN VRANKEN,GIORGIO MIN E [facility] Aug 30, 2023 02:00 PM SECONDARY Post-traumatic stress disorder, unspecified VAN VRANKEN,GIORGIO MIN E [facility] Aug 30, 2023 02:00 PM SECONDARY Wedge compression fracture of T7-T8 vertebra, init VAN VRANKEN,GIORGIO MIN E [facility] Plan of Treatment: Future Appointments (+ 6 months) and Future Tests (+/- 45 days) The Plan of Treatment section includes future care activities for the patient from all [facility] This section includes future appointments and future orders which are active, pending or scheduled. Future Appointments This section includes appointments that were scheduled to occur 6 months from the date of the Encounter, up to a maximum of 20 appointments. The data comes from all [facility]. Appointment Date/Time Appointment Type Appointme nt Facility Name Aug 31, 2023 04:15 PM AMBULATORY - SURGERY [facility] Sep 08, 2023 09:30 AM AMBULATORY - NONE [facility] Sep 08, 2023 10:30 AM AMBULATORY - REHAB MEDICIN E [facility] September 22, 2023 10:39 AM AMBULATORY - MEDICINE [facility] September 27, 2023 10:30 AM AMBULATORY - PSYCHIATRY [facility] Nov 10, 2023 07:15 AM AMBULATORY - MEDICINE [facility] Nov 10, 2023 07:30 AM AMBULATORY - MEDICINE [facility] Jan 02, 2024 09:30 AM AMBULATORY - MEDICINE [facility] Jan 02, 2024 10:30 AM AMBULATORY MEDICINE [facility] Active, Pending, and Scheduled Orders This section includes a listing of several types of active, pending, and scheduled orders, including clinic medications orders, diagnostic test orders, procedure orders and consult orders; where the start date of the order is 45 days before the date of the Encounter or 45 days after the date of theEncounter. The data comes from all [facility]. Test Date/Time Test Type Test Details Facility Name Jul 21, 2023 12:00 AM Laboratory - Chemistry Order B 12 SERUM SP ONCE [facility] Sep 08, 2023 12:00 AM Laboratory - Chemistry Order CBC BLOOD SP ONCE [facility] Sep 08, 2023 12:00 AM Laboratory - Chemistry Order COMPREHENSIVE METABOLIC PANEL+MG PLASMA SP ONCE [facility] September 22, 2023 01:58 PM Consult Order [facility]IAL RE[facility] TREATMENT [facility] Cons Water Reclamation Systems Operator's Choice [facility] September 23, 2023 12:52 PM Laboratory - Microbiology Order CULTURE & SUSCEPTIBILITY SPUTUM WC ONCE [facility] September 23, 2023 12:52 PM Laboratory - Microbiology Order GRAM STAIN SPUTUM WC ONCE [facility] September 23, 2023 01:00 PM Laboratory - Microbiology Order CULTURE & SUSCEPTIBILITY BLOOD WC [facility] September 23, 2023 01:20 PM Laboratory - Microbiology Order CULTURE & SUSCEPTIBILITY BLOOD WC [facility] September 24, 2023 05:30 AM Laboratory - Chemistry Order CBC & DIFF BLOOD LC ONCE [facility] September 24, 2023 05:30 AM Laboratory - Chemistry Order COMPREHENSIVE METABOLIC PANEL+MG PLASMA LC [facility] September 24, 2023 05:30 AM Laboratory - Chemistry Order D-DIMER PLASMA LC ONCE [facility] September 24, 2023 05:30 AM Laboratory - Chemistry Order LACTIC ACID PLASMA UNITS WC ONCE [facility] Lab Results: +/- 30 [...] Range Comment September 23, 2023 02:30 PM [facility] EXTRA MINT TUBE Specimen Type: PLASMA No comment entered. Ordering Provider: REVA ROSS Report Released Date/Time: September 23, 2023 02:49 PM Reporting Lab: [facility] [id number] Performing Lab: [facility] [phone] EXTRA MINT TUBE RECEIVED September 23, 2023 04:15 AM [facility] C-REACTIVE PROTEIN Specimen Type: PLASMA No comment entered. Ordering Provider: WANDA BOWSER Report Released Date/Time: September 23, 2023 04:10 AM Reporting Lab: [facility] [phone] Performing Lab: [facility] [address] C-REACTIVE PROTEIN 81.34 H <5.00 September 23, 2023 04:15 AM [facility] PROCALCITONIN Specimen Type: PLASMA No comment entered. Ordering Provider: WANDA BOWSER Report Released Date/Time: September 23, 2023 04:10 AM Reporting Lab: [facility] [id number] Performing Lab: [facility] [address] PROCALCITONIN 0.11 H <0.09 September 23, 2023 04:15 AM [facility] LIPASE Specimen Type: PLASMA No comment entered. Ordering Provider: REVA ROSS Report Released Date/Time: September 23, 2023 12:52 PM Reporting Lab: [facility] [id number] Performing Lab: [facility] [address] LIPASE 12 <60 September 23, 2023 04:15 AM [facility] CBC Specimen Type: BLOOD No comment entered. Ordering Provider: WANDA BOWSER Report Released Date/Time: September 23, 2023 04:10 AM Reporting Lab: [facility] [address] Performing Lab: [facility] [address] WBC 12.24 H 4.0-11.0 RBC 3.93 L 4.6-6.2 HGB 13.9 13.5-17.9 HCT 39.8 L 41-54 MCV 101.3 H 80-100 MCH 35.4 H 27-33 MCHC 34.9 32.0-37.5 PLT 236 150-400 MPV 9.3 7.4-10.4 RDW 12.0 11.5-14.5 September 23, 2023 04:15 AM [facility] COMPREHENSIVE METABOLIC PANEL+MG Specimen Type: PLASMA No comment entered. Ordering Provider: WANDA BOWSER Report Released Date/Time: September 23, 2023 04:10 AM Reporting Lab: [facility] [address] Performing Lab: [facility] [address] CREATININE 1.1 0.7-1.2 UREA NITROGEN 16 8-26 [...] 74 >60 September 22, 2023 01:33 PM [facility] DRUG SCREEN PANEL,URINE Specimen Type: URINE Comment: Presumptive Positive by screen, results not confirmed. Ordering Provider: RADHA DODD Report Released Date/Time: September 22, 2023 10:59 AM Reporting Lab: [facility] [address] Performing Lab: [facility] [address] BARBITURATES Negative Negative AMPHETAMINES Negative Negative COCAINE Negative Negative BENZODIAZEPINES Negative Negative CANNABINOIDS Negative Negative METHADONE Negative Negative OPIATES POSITIVE H Negative PHENCYCLIDINE Negative Negative ETHANOL,URINE Negative Negative DRUG SCREEN CREAT 290.4 >20.0 OXYCODONE Negative Negative BUPRENORPHINE Negative Negative TRAMADOL Negative Negative FENTANYL Negative Negative September 22, 2023 01:33 PM [facility] URINALYSIS Specimen Type: URINE No comment entered. Ordering Provider: RADHA DODD Report Released Date/Time: September 22, 2023 10:59 AM Reporting Lab: [facility] [address] Performing Lab: [facility] [address] URINE COLOR YELLOW SPECIFIC GRAVITY 1.032 1.003-1.03 [...] NEGATIVE NEGATIVE September 22, 2023 01:33 PM [facility] COVID-19 AND FLU/RSV DIAG PANEL(CEPHEID) Specimen Typ e: NASOPHARYNGEAL Comment: Cepheid GeneXpert (618) Ordering Provider: RADHA DODD Report Released Date/Time: September 22, 2023 01:26 PM Reporting Lab: [facility] [address] Performing Lab: [facility] [phone] COVID-19 (CEPHEID) Not Detected Not Detected INFLUENZA A (PCR) Not Detected Not Detected INFLUENZA B (PCR) Not Detected Not Detected RSV (PCR) Not Detected Not Detected September 22, 2023 10:55 AM [facility] EXTRA BLUE TUBE Specimen Type: PLASMA No comment entered. Ordering Provider: RADHA DODD Report Released Date/Time: September 22, 2023 11:04 AM Reporting Lab: [facility] [address] Performing Lab: [facility] [address] EXTRA BLUE TUBE RECEIVED September 22, 2023 10:55 AM [facility] LIPASE Specimen Type: PLASMA No comment entered. Ordering Provider: RADHA DODD Report Released Date/Time: September 22, 2023 10:59 AM Reporting Lab: [facility] [address] Performing Lab: [facility] [address] LIPASE 27 <60 September 22, 2023 10:55 AM [facility] ETHANOL Specimen Type: PLASMA No comment entered. Ordering Provider: RADHA DODD Report Released Date/Time: September 22, 2023 10:59 AM Reporting Lab: [facility] [address] Performing Lab: [facility] [address] ETHANOL Negative NEGATIVE September 22, 2023 10:55 AM [facility] EXTRA GOLD GEL TUBE Specimen Type: SERUM No comment entered. Ordering Provider: RADHA DODD Report Released Date/Time: September 22, 2023 11:04 AM Reporting Lab: [facility] [address] Performing Lab: [facility] [address] EXTRA GOLD GEL TUBE RECEIVED September 22, 2023 10:55 AM [facility] COMPREHENSIVE METABOLIC PANEL+MG Specimen Type: PLASMA No comment entered. Ordering Provider: RADHA DODD Report Released Date/Time: September 22, 2023 10:59 AM Reporting Lab: [facility] [phone] Performing Lab: [facility] [address] CREATININE 1.0 0.7-1.2 UREA NITROGEN 16 8-26 [...] 82 >60 September 22, 2023 10:55 AM [facility] CBC & DIFF Specimen Type: BLOOD Comment: Automated Differential Performed Ordering Provider: RADHA DODD Report Released Date/Time: September 22, 2023 10:59 AM Reporting Lab: [facility] [address] Performing Lab: [facility] [address] WBC 16.53 H 4.0-11.0 RBC 4.55 L [...] Facil ity Jun 02, 2023 11:00 AM [place]-TOBACCO QUIT 5 TO < 15 YRS [facility] Tobacco Use History This [...] [facility] Nov 08, 2017 01:55 PM [facility]-TOBACCO QUIT 1 TO < 5 YRS [facility] [...] 01:38 PM CHEST 1 VIEW: CALVIN JAIN [id number] -[id number] M Exm Date: SEPTEMBER 23, 2023@13:38 Req Phys: REVA ROSS Loc: 3LS/09-23-2023@14:51 Img Loc: MAIN X-RAY Service: PRIMARY [place] [address] (Case [id number] COMPLETE) CHEST 1 VIEW (RAD Detailed) CPT:61827 Proc Modifiers : PORTABLE EXAM Reason for Study: see below Clinical History: IS NOT under investigation for COVID-19 or is COVID-19 negative SIRS criteria, no overt sx, please r/o any opacities Responsible provider name and phone number to notify for critical findings if other than user placing the order and pager listed below: User placing orders pager: [phone] LAST CREATININE 1.1 (09/23/23) Report Status: Verified Date Reported: SEPTEMBER 23, 2023 Date Verified: SEPTEMBER 23, 2023 Tie Buyer E-Sig:/ES/JANETH OROZCO DO Report: EXAMINATION: CHEST 1 VIEW Reason for Study: see below [place] IS NOT under investigation for COVID-19 or is COVID-19 negative SIRS criteria, no overt sx, please r/o any opacities Responsible provider name and phone number to notify for critical findings if other than user placing the order and pager listed below: User placing orders pager: [phone] LAST CREATININE 1.1 (09/23/23) see below TECHNIQUE: [...] Primary Interpreting Staff: JANETH OROZCO DO, RADIOLOGIST (Tie Buyer) /JANETH RASHEED [facility] Encounter Notes: All associated encounter notes This section contains the clinical notes associated to the Encounter. Date/Time Encounter Note(s) Provider Source Aug 30, 2023 02:12 PM PACT NOTE: LOCAL TITLE: MEDICINE CLINIC PROVIDER TELEPHONE NOTE STANDARD TITLE: PACT NOTE DATE OF NOTE: AUG 30, 2023@14:12 ENTRY DATE: AUG 30, 2023@14:12:34 AUTHOR: LIA HENDERSON EXP COSIGNER: URGENCY: STATUS: COMPLETED History: has a lot of trouble with anxiety when he isn't drinking. Objective: Assessment/Plan: # EtOH abuse: vet had been sober since being admitted to hosp on 01/31/23, alcohol-related issues. now back to drinking a few per wk. didn't tolerate the natrexone due to 'upset stomach'. fatty infiltration if liver U/S. AST only mildly elevated at last check. - planning to be admitted to [place] in next few wks - naltrexone 50mg - take w/ food [...] otherwise, there is normal healing of fractures. left hip pain didn't improve after greater trochanteric bursal injection. - alendronate (refill PPI) - Ortho f/u - vet planning to ask for intra-articular steroid inj (f/u [place] phone) # hx severe hypomagnesemia: Mg++ 1.0 in 01/2023. related to EtOH. now nearly corrected. - oral MgOx 420 QHS - rpt Mg level # NAFLD: AST now only minimally elevated since he reduce EtOH sig. normal plts. no exam features of liver cirrhosis. elevated transferrin sat concerning fro hereditary hemochromatosis, but LFTs normal and iron studies normal in past. - monitor LFTs Education/Counseling: Time spent general medical practitioner: 11-20 minutes /es/ HA HENDERSON MD Staff Physician Signed: 08/30/2023 14:21 HA HENDERSON [facility]
--- OUTSIDE RECORDS SUMMARY | 2023-09-23 17:20 | XMS_ITS | Encounter Summary ---
Author Name [employer] [facility] [employer] [employer] Organization [facility] Address [address] [place] [address] Support Name Relationship Address Phone MARIBELL VITO Next of Kin [address] [place] [address] MARIBELL, VITO Emergency Contact [address] [place] [address] Insurance Providers: All historical and [...] Hurt's Name Patient's Relationship to Policy Hurt [facility] (WNR) MEDICARE ADVANTAGE [facility] (WNR) May 16, 2023 [id number] JEAN JAIN IN PATIENT Selected Encounter This section includes the information on record at [place] for the Encounter. Date/Time Encounter Type Encounter Description Reason Pro vider Source Sep 07, 2023 02:32 PM Outpatient Encounter TELEPHONE/ANCILLARY E Encounter Template Text not used by [place] Plan of Treatment: Future Appointments (+ 6 months) and Future Tests (+/- 45 days) The Plan of Treatment section includes future care activities for the patient from all [place] treatmentfacilities. This section includes future appointments and future orders which are active, pending or scheduled. Future Appointments This section includes appointments that were scheduled to occur 6 months from the date of the Encounter, up to a maximum of 20 appointments. The data comes from all [place] treatment facilities. Appointment Date/Time Appointment Type Appointme nt Facility Name Sep 08, 2023 09:30 AM [facility] Sep 08, 2023 10:30 AM AMBULATORY - REHAB MEDICIN E [facility] September 22, 2023 10:39 AM AMBULATORY - MEDICINE [facility] September 27, 2023 10:30 AM AMBULATORY - PSYCHIATRY [facility] Nov 10, 2023 07:15 AM AMBULATORY - MEDICINE [facility] Nov 10, 2023 07:30 AM AMBULATORY - MEDICINE [facility] Jan 02, 2024 09:30 AM AMBULATORY - MEDICINE [facility] Jan 02, 2024 10:30 AM AMBULATORY MEDICINE [facility] Active, Pending, and Scheduled Orders This section [...] - Chemistry Order CBC BLOOD SP ONCE [facility] Sep 08, 2023 12:00 AM Laboratory - Chemistry Order COMPREHENSIVE METABOLIC PANEL+MG PLASMA SP ONCE [facility] September 22, 2023 01:58 PM Consult Order IF [facility]IDENTIAL REH[facility]ILITATION TREATMENT [facility] Cons Director Corporate Security's Choice [facility] September 23, 2023 12:52 PM Laboratory - Microbiology Order CULTURE & SUSCEPTIBILITY SPUTUM WC ONCE [facility] September 23, 2023 12:52 PM Laboratory - Microbiology Order GRAM STAIN SPUTUM WC ONCE [facility] September 23, 2023 01:00 PM Laboratory - Microbiology Order CULTURE & SUSCEPTIBILITY BLOOD WC [facility] September 23, 2023 01:20 PM Laboratory - Microbiology Order CULTURE & SUSCEPTIBILITY BLOOD WC [facility] September 24, 2023 05:30 AM Laboratory - Chemistry Order CBC & DIFF BLOOD LC ONCE [facility] September 24, 2023 05:30 AM Laboratory - Chemistry Order COMPREHENSIVE METABOLIC PANEL+MG PLASMA LC [facility] September 24, 2023 05:30 AM Laboratory - Chemistry Order D-DIMER PLASMA LC ONCE [facility] September 24, 2023 05:30 AM Laboratory - Chemistry Order LACTIC ACID PLASMA UNITS WC ONCE [facility] Lab Results: +/- 30 days of the encounter This section includes the Chemistry and Hematology Lab Results on record with [place] for the patient. Radiology Reports and Pathology Reports are provided separately, in subsequent sections. Lab Results This section contains the Chemistry/Hematology Results that were resulted 30 days before or 30 daysafter the date of the Encounter. Date/Time Source Result Type Result - Unit Interpretation Reference Range Comment September 23, 2023 02:30 PM [facility] EXTRA MINT TUBE Specimen Type: PLASMA No comment entered. Ordering Provider: REVA ROSS Report Released Date/Time: September 23, 2023 02:49 PM Reporting Lab: [facility] [id number] Performing Lab: [facility] [phone] EXTRA MINT TUBE RECEIVED September 23, 2023 04:15 AM [facility] C-REACTIVE PROTEIN Specimen Type: PLASMA No comment entered. Ordering Provider: WANDA BOWSER Report Released Date/Time: September 23, 2023 04:10 AM Reporting Lab: [facility] [id number] Performing Lab: [facility] [phone] C-REACTIVE PROTEIN 81.34 H <5.00 September 23, 2023 04:15 AM [facility] LIPASE Specimen Type: PLASMA No comment entered. Ordering Provider: REVA ROSS Report Released Date/Time: September 23, 2023 12:52 PM Reporting Lab: [facility] [phone] Performing Lab: [facility] [id number] LIPASE 12 <60 September 23, 2023 04:15 AM [facility] PROCALCITONIN Specimen Type: PLASMA No comment entered. Ordering Provider: WANDA BOWSER Report Released Date/Time: September 23, 2023 04:10 AM Reporting Lab: [facility] [id number] Performing Lab: [facility] [phone] PROCALCITONIN 0.11 H <0.09 September 23, 2023 04:15 AM [facility] CBC Specimen Type: BLOOD No comment entered. Ordering Provider: WANDA BOWSER Report Released Date/Time: September 23, 2023 04:10 AM Reporting Lab: [facility] [phone] Performing Lab: [facility] [phone] WBC 12.24 H 4.0-11.0 RBC 3.93 L 4.6-6.2 HGB 13.9 13.5-17.9 HCT 39.8 L 41-54 MCV 101.3 H 80-100 MCH 35.4 H 27-33 MCHC 34.9 32.0-37.5 PLT 236 150-400 MPV 9.3 7.4-10.4 RDW 12.0 11.5-14.5 September 23, 2023 04:15 AM [facility] COMPREHENSIVE METABOLIC PANEL+MG Specimen Type: PLASMA No comment entered. Ordering Provider: WANDA BOWSER Report Released Date/Time: September 23, 2023 04:10 AM Reporting Lab: [facility] [phone] Performing Lab: [facility] [phone] CREATININE 1.1 0.7-1.2 UREA NITROGEN 16 8-26 [...] 74 >60 September 22, 2023 01:33 PM [facility] DRUG SCREEN PANEL,URINE Specimen Type: URINE Comment: Presumptive Positive by screen, results not confirmed. Ordering Provider: RADHA DODD Report Released Date/Time: September 22, 2023 10:59 AM Reporting Lab: [facility] [phone] Performing Lab: [facility] [phone] BARBITURATES Negative Negative AMPHETAMINES Negative Negative COCAINE Negative Negative BENZODIAZEPINES Negative Negative CANNABINOIDS Negative Negative METHADONE Negative Negative OPIATES POSITIVE H Negative PHENCYCLIDINE Negative Negative ETHANOL,URINE Negative Negative DRUG SCREEN CREAT 290.4 >20.0 OXYCODONE Negative Negative BUPRENORPHINE Negative Negative TRAMADOL Negative Negative FENTANYL Negative Negative September 22, 2023 01:33 PM [facility] URINALYSIS Specimen Type: URINE No comment entered. Ordering Provider: RADHA DODD Report Released Date/Time: September 22, 2023 10:59 AM Reporting Lab: [facility] [phone] Performing Lab: [facility] [phone] URINE COLOR YELLOW SPECIFIC GRAVITY 1.032 1.003-1.03 [...] NEGATIVE NEGATIVE September 22, 2023 01:33 PM [facility] COVID-19 AND FLU/RSV DIAG PANEL([email or web address]) Specimen Typ e: NASOPHARYNGEAL Comment: [employer] GeneXpert (618) Ordering Provider: RADHA DODD Report Released Date/Time: September 22, 2023 01:26 PM Reporting Lab: [facility] [phone] Performing Lab: [facility] [phone] COVID-19 (CEPHEID) Not Detected Not Detected INFLUENZA A (PCR) Not Detected Not Detected INFLUENZA B (PCR) Not Detected Not Detected RSV (PCR) Not Detected Not Detected September 22, 2023 10:55 AM [facility] EXTRA BLUE TUBE Specimen Type: PLASMA No comment entered. Ordering Provider: RADHA DODD Report Released Date/Time: September 22, 2023 11:04 AM Reporting Lab: [facility] [phone] Performing Lab: [facility] [phone] EXTRA BLUE TUBE RECEIVED September 22, 2023 10:55 AM [facility] LIPASE Specimen Type: PLASMA No comment entered. Ordering Provider: RADHA DODD Report Released Date/Time: September 22, 2023 10:59 AM Reporting Lab: [facility] [phone] Performing Lab: [facility] [phone] LIPASE 27 <60 September 22, 2023 10:55 AM [facility] ETHANOL Specimen Type: PLASMA No comment entered. Ordering Provider: RADHA DODD Report Released Date/Time: September 22, 2023 10:59 AM Reporting Lab: [facility] [phone] Performing Lab: [facility] [phone] ETHANOL Negative NEGATIVE September 22, 2023 10:55 AM [facility] EXTRA GOLD GEL TUBE Specimen Type: SERUM No comment entered. Ordering Provider: RADHA DODD Report Released Date/Time: September 22, 2023 11:04 AM Reporting Lab: [facility] [phone] Performing Lab: [facility] [phone] EXTRA GOLD GEL TUBE RECEIVED September 22, 2023 10:55 AM [facility] COMPREHENSIVE METABOLIC PANEL+MG Specimen Type: PLASMA No comment entered. Ordering Provider: RADHA DODD Report Released Date/Time: September 22, 2023 10:59 AM Reporting Lab: [facility] [phone] Performing Lab: [facility] [phone] CREATININE 1.0 0.7-1.2 UREA NITROGEN 16 8-26 [...] 82 >60 September 22, 2023 10:55 AM [facility] CBC & DIFF Specimen Type: BLOOD Comment: Automated Differential Performed Ordering Provider: RADHA DODD Report Released Date/Time: September 22, 2023 10:59 AM Reporting Lab: [facility] [phone] Performing Lab: [facility] [phone] WBC 16.53 H 4.0-11.0 RBC 4.55 L [...] and tobacco- related health factors from the [place] facility where the Encounter took place. Current Smoking Status This section includes the most current smoking, or tobacco-related health factor, from the [place] facility where the Encounter took place. Date/Time Current Smoking Status Comment Nigel terrazas Jun 02, 2023 11:00 AM VA-TOBACCO QUIT 5 TO < 15 YRS [facility] Tobacco Use History This section includes a history of the smoking, or tobacco-related health factors, that were collected on or before the date of the Encounter. The data comes from the [place] facility where the Encounter took place. Date/Time Smoking Status/Tobacco Use Comment F acility Jun 02, 2023 11:00 AM VA-TOBACCO QUIT 5 TO < 15 YRS [facility] May 21, 2022 10:30 AM VA-TOBACCO FORMER USER [facility] May 21, 2022 10:30 AM VA-TOBACCO [...] ALL of a patient's completed or amended [place] Advance and Rescinded Directives. The entries below indicate that a directive exists for the patient, but an actual copy is not included with this document. The data comes from all [facility]. Date Advance Directives Provider Source May 11, [...] the Encounter. The data comes from all [place] treatment facilities. Date/Time Radiology Report Provider Source September 23, 2023 01:38 PM CHEST 1 VIEW: CALVIN JAIN [id number] M Exm Date: SEPTEMBER 23, 2023@13:38 Req Phys: REVA ROSS Loc: 09-23-2023@14:51 Img Loc: MAIN X-RAY Service: [place] [address] (Case [id number] COMPLETE) CHEST 1 VIEW (RAD Detailed) CPT:01352 Proc Modifiers : PORTABLE EXAM Reason for Study: see below Clinical History: IS NOT under investigation for COVID-19 or is COVID-19 negative SIRS criteria, no overt sx, please r/o any opacities Responsible provider name and phone number to notify for critical findings if other than user placing the order and pager listed below: User placing orders pager: [phone] LAST CREATININE 1.1 (09/23/23) Report Status: Verified Date Reported: SEPTEMBER 23, 2023 Date Verified: SEPTEMBER 23, 2023 [employer]-Sig:/ES/JANETH OROZCO DO Report: EXAMINATION: CHEST 1 VIEW Reason for Study: see below IS NOT under investigation for COVID-19 or is COVID-19 negative SIRS criteria, no overt sx, please r/o any opacities Responsible provider name and phone number to notify for critical findings if other than user placing the order and pager listed below: User placing orders pager: [phone] LAST CREATININE 1.1 (09/23/23) see below TECHNIQUE: [...] Primary Interpreting Staff: JANETH OROZCO DO, RADIOLOGIST ([employer]) /JANETH RASHEED [facility] Encounter Notes: All associated encounter notes This section contains the clinical notes associated to the Encounter. Date/Time Encounter Note(s) Provider Source Sep 07, 2023 02:32 PM GASTROENTEROLOGY N URSING OUTPATIENT NOTE: LOCAL TITLE: GI CLINIC NURSING NOTE STANDARD TITLE: GASTROENTEROLOGY NURSING OUTPATIENT NOTE DATE OF NOTE: SEP 07, 2023@14:32 ENTRY DATE: SEP 07, 2023@14:32:24 AUTHOR: ZORA LOPEZ EXP COSIGNER: URGENCY: STATUS: COMPLETED GI CLINIC NURSING NOTE Has ADDENDA Unsuccessful in contacting to review procedure prep and instructions. A HIPPA-compliant message was left to call GI nurse line [phone] to discuss a medication that requires holding prior to his procedure. /samantha LOPEZ RN REGISTERED NURSE Signed: 09/07/2023 14:33 09/09/2023 ADDENDUM STATUS: COMPLETED Attempted to reach again. Left HIPPA compliant VM to call GI nurse line for medication holding instructions. /samantha LOPEZ RN REGISTERED NURSE Signed: 09/09/2023 09:12 ZORA LOPEZ [facility]
--- OUTSIDE RECORDS SUMMARY | 2023-09-23 17:20 | XMS_ITS | Encounter Summary ---
Author Name [employer] [facility] [employer] Organization [facility] Address [address] [place] [address] Support Name Relationship Address Phone MARIBELL VITO Next of Kin [id number] [place] [address] VITO REYNA Emergency Contact [address] [place] [address] Insurance Providers: All historical and [...] Hurt's Name Patient's Relationship to Policy Hurt [facility] (WNR) MEDICARE ADVANTAGE [facility] (WNR) May 16, 2023 [id number] JEAN JAIN IN PATIENT Selected Encounter This section includes the information on record at [place] for the Encounter. Date/Time Encounter Type Encounter Description Reason Pro vider Source Sep 08, 2023 10:30 AM Outpatient Encounter NEUROLOGY IHE [...] Appointment Type Appointme nt Facility Name September 22, 2023 10:39 AM AMBULATORY - MEDICINE [facility] September 27, 2023 10:30 AM AMBULATORY - PSYCHIATRY [facility] Nov 10, 2023 07:15 AM AMBULATORY - MEDICINE [facility] Nov 10, 2023 07:30 AM AMBULATORY - MEDICINE [facility] Jan 02, 2024 09:30 AM AMBULATORY - MEDICINE [facility] Jan 02, 2024 10:30 AM AMBULATORY MEDICINE [facility] Active, Pending, and Scheduled Orders This section includes a listing of several types of active, pending, and scheduled orders, including clinic medications orders, diagnostic test orders, procedure orders and consult orders; where the start date of the order is 45 days before the date of the Encounter or 45 days after the date of theEncounter. The data comes from all [facility] facilities. Test Date/Time Test Type Test Details Facility Name Sep 08, 2023 12:00 AM Laboratory - Chemistry Order COMPREHENSIVE METABOLIC PANEL+MG PLASMA SP ONCE [facility] Sep 08, 2023 12:00 AM Laboratory - Chemistry Order CBC BLOOD SP ONCE [facility] September 22, 2023 01:58 PM Consult Order [facility] Cons Slab Installer's Choice [facility] September 23, 2023 12:52 PM Laboratory - Microbiology Order CULTURE & SUSCEPTIBILITY SPUTUM WC ONCE [facility] September 23, 2023 12:52 PM Laboratory - Microbiology Order GRAM STAIN SPUTUM WC ONCE [facility] September 23, 2023 01:00 PM Laboratory - Microbiology Order CULTURE & SUSCEPTIBILITY BLOOD [facility] September 23, 2023 01:20 PM Laboratory - Microbiology Order CULTURE & SUSCEPTIBILITY BLOOD [facility] September 24, 2023 05:30 AM Laboratory - Chemistry Order CBC & DIFF BLOOD LC ONCE [facility] September 24, 2023 05:30 AM Laboratory - Chemistry Order COMPREHENSIVE METABOLIC PANEL+MG PLASMA LC [facility] September 24, 2023 05:30 AM Laboratory - Chemistry Order D-DIMER PLASMA LC ONCE [facility] September 24, 2023 05:30 AM Laboratory - Chemistry Order LACTIC ACID PLASMA UNITS WC ONCE [facility] Lab Results: +/- 30 days of the [...] Range Comment September 23, 2023 02:30 PM [facility] EXTRA MINT TUBE Specimen Type: PLASMA No comment entered. Ordering Provider: REVA ROSS Report Released Date/Time: September 23, 2023 02:49 PM Reporting Lab: [facility] [phone] Performing Lab: [facility] [phone] EXTRA MINT TUBE RECEIVED September 23, 2023 04:15 AM [facility] PROCALCITONIN Specimen Type: PLASMA No comment entered. Ordering Provider: WANDA BOWSER Report Released Date/Time: September 23, 2023 04:10 AM Reporting Lab: [facility] [phone] Performing Lab: [facility] [phone] PROCALCITONIN 0.11 H <0.09 September 23, 2023 04:15 AM [facility] C-REACTIVE PROTEIN Specimen Type: PLASMA No comment entered. Ordering Provider: WANDA BOWSER Report Released Date/Time: September 23, 2023 04:10 AM Reporting Lab: [facility] [phone] Performing Lab: [facility] [phone] C-REACTIVE PROTEIN 81.34 H <5.00 September 23, 2023 04:15 AM [facility] LIPASE Specimen Type: PLASMA No comment entered. Ordering Provider: REVA ROSS Report Released Date/Time: September 23, 2023 12:52 PM Reporting Lab: [facility] [phone] Performing Lab: [facility] [phone] LIPASE 12 <60 September 23, 2023 04:15 AM [facility] CBC Specimen Type: BLOOD No comment entered. Ordering Provider: WANDA BOWSER Report Released Date/Time: September 23, 2023 04:10 AM Reporting Lab: [facility] [phone] Performing Lab: [facility] [phone] WBC 12.24 H 4.0-11.0 RBC 3.93 L 4.6-6.2 HGB 13.9 13.5-17.9 HCT 39.8 L 41-54 MCV 101.3 H 80-100 MCH 35.4 H 27-33 MCHC 34.9 32.0-37.5 PLT 236 150-400 MPV 9.3 7.4-10.4 RDW 12.0 11.5-14.5 September 23, 2023 04:15 AM [facility] COMPREHENSIVE METABOLIC PANEL+MG Specimen Type: PLASMA No comment entered. Ordering Provider: WANDA BOWSER Report Released Date/Time: September 23, 2023 04:10 AM Reporting Lab: [facility] [phone] Performing Lab: [facility] [phone] CREATININE 1.1 0.7-1.2 UREA NITROGEN 16 8-26 [...] 74 >60 September 22, 2023 01:33 PM [facility] URINALYSIS Specimen Type: URINE No comment entered. Ordering Provider: RADHA DODD Report Released Date/Time: September 22, 2023 10:59 AM Reporting Lab: [facility] [phone] Performing Lab: [facility] [phone] URINE COLOR YELLOW SPECIFIC GRAVITY 1.032 1.003-1.03 [...] NEGATIVE NEGATIVE September 22, 2023 01:33 PM [facility] DRUG SCREEN PANEL,URINE Specimen Type: URINE Comment: Presumptive Positive by screen, results not confirmed. Ordering Provider: RADHA DODD Report Released Date/Time: September 22, 2023 10:59 AM Reporting Lab: [facility] [phone] Performing Lab: [facility] [phone] BARBITURATES Negative Negative AMPHETAMINES Negative Negative COCAINE Negative Negative BENZODIAZEPINES Negative Negative CANNABINOIDS Negative Negative METHADONE Negative Negative OPIATES POSITIVE H Negative PHENCYCLIDINE Negative Negative ETHANOL,URINE Negative Negative DRUG SCREEN CREAT 290.4 >20.0 OXYCODONE Negative Negative BUPRENORPHINE Negative Negative TRAMADOL Negative Negative FENTANYL Negative Negative September 22, 2023 01:33 PM [facility] COVID-19 AND FLU/RSV DIAG PANEL([employer]) Specimen Typ e: NASOPHARYNGEAL Comment: RUSBASE GeneXpert (618) Ordering Provider: RADHA DODD Report Released Date/Time: September 22, 2023 01:26 PM Reporting Lab: [facility] [phone] Performing Lab: [facility] [phone] COVID-19 (CEPHEID) Not Detected Not Detected INFLUENZA A (PCR) Not Detected Not Detected INFLUENZA B (PCR) Not Detected Not Detected RSV (PCR) Not Detected Not Detected September 22, 2023 10:55 AM [facility] EXTRA BLUE TUBE Specimen Type: PLASMA No comment entered. Ordering Provider: RADHA DODD Report Released Date/Time: September 22, 2023 11:04 AM Reporting Lab: [facility] [phone] Performing Lab: [facility] [phone] EXTRA BLUE TUBE RECEIVED September 22, 2023 10:55 AM [facility] LIPASE Specimen Type: PLASMA No comment entered. Ordering Provider: RADHA DODD Report Released Date/Time: September 22, 2023 10:59 AM Reporting Lab: [facility] [phone] Performing Lab: [facility] [phone] LIPASE 27 <60 September 22, 2023 10:55 AM [facility] ETHANOL Specimen Type: PLASMA No comment entered. Ordering Provider: RADHA DODD Report Released Date/Time: September 22, 2023 10:59 AM Reporting Lab: [facility] [phone] Performing Lab: [facility] [phone] ETHANOL Negative NEGATIVE September 22, 2023 10:55 AM [facility] COMPREHENSIVE METABOLIC PANEL+MG Specimen Type: PLASMA No comment entered. Ordering Provider: RADHA DODD Report Released Date/Time: September 22, 2023 10:59 AM Reporting Lab: [facility] [phone] Performing Lab: [facility] [phone] CREATININE 1.0 0.7-1.2 UREA NITROGEN 16 8-26 [...] 82 >60 September 22, 2023 10:55 AM [facility] CBC & DIFF Specimen Type: BLOOD Comment: Automated Differential Performed Ordering Provider: RADHA DODD Report Released Date/Time: September 22, 2023 10:59 AM Reporting Lab: [facility] [phone] Performing Lab: [facility] [phone] WBC 16.53 H 4.0-11.0 RBC 4.55 L [...] H 0-0.1 September 22, 2023 10:55 AM [facility] EXTRA GOLD GEL TUBE Specimen Type: SERUM No comment entered. Ordering Provider: RADHA DODD Report Released Date/Time: September 22, 2023 11:04 AM Reporting Lab: [facility] [phone] Performing Lab: [facility] [phone] EXTRA GOLD GEL TUBE RECEIVED Social History: Smoking Status (Most current) and [...] FORMER TOBACCO USER 7Y OR GREATE R [facility] May 26, 2012 [...] this document. The data comes from all [place] facilities. Date Advance Directives Provider Source May 11, 2006 ADVANCE DIRECTIVE ASH RAZO [facility] Radiology Reports: +/- 30 days of the [...] 01:38 PM CHEST 1 VIEW: CALVIN JAIN [id number] -[id number] M Exm Date: SEPTEMBER 23, 2023@13:38 Req Phys: REVA ROSS [facility] Loc: 309-23-2023@14:51 Img Loc: MAIN X-RAY Service: PRIMARY CARE [place] [address] (Case [id number] COMPLETE) CHEST 1 VIEW (RAD Detailed) CPT:40651 Proc Modifiers : PORTABLE EXAM Reason for Study: see below Clinical History: IS NOT under investigation for COVID-19 or is COVID-19 negative SIRS criteria, no overt sx, please r/o any opacities Responsible provider name and phone number to notify for critical findings if other than user placing the order and pager listed below: User placing orders pager: [phone] LAST CREATININE 1.1 (09/23/23) Report Status: Verified Date Reported: SEPTEMBER 23, 2023 Date Verified: SEPTEMBER 23, 2023 [employer] E-Sig:/[email or web address]/JANETH OROZCO DO Report: EXAMINATION: CHEST 1 VIEW Reason for Study: see below Industry IS NOT under investigation for COVID-19 or is COVID-19 negative SIRS criteria, no overt sx, please r/o any opacities Responsible provider name and phone number to notify for critical findings if other than user placing the order and pager listed below: User placing orders pager: [phone] LAST CREATININE 1.1 (09/23/23) see below TECHNIQUE: [...] Primary Interpreting Staff: JANETH OROZCO DO, RADIOLOGIST ([employer]ger [employer]) /JANETH RASHEED [facility] Encounter Notes: All associated encounter notes This section contains the clinical notes associated to the Encounter. Date/Time Encounter Note(s) Provider Source Sep 08, 2023 11:59 AM NO SHOW NOTE: LOCAL TITLE: NO SHOW/CANCELLATION CLINIC NOTE STANDARD TITLE: NO SHOW NOTE DATE OF NOTE: SEP 08, 2023@11:59 ENTRY DATE: SEP 08, 2023@11:59:39 AUTHOR: ZEE CHRISTOPHER EXP COSIGNER: URGENCY: STATUS: COMPLETED Industry not seen for scheduled appointment due to: No Show Appointment Rescheduled: Please review patient chart and medications for renewal needs (if appropriate). /eagle/ ZEE CHRISTOPHER DNP, MANAGER MOBILITY-C NEUROLOGY NURSE PRACTITIONER Signed: 09/08/2023 11:59 ZEE CHRISTOPHER [facility]
--- OUTSIDE RECORDS SUMMARY | 2023-09-23 17:20 | XMS_ITS | Encounter Summary ---
Author Name [facility] Organization [facility] Address [address] [place] [address] Support Name Relationship Address Phone MARIBELL, VITO Next of Kin [address] [place] [address] VITO REYNA Emergency Contact [address] [place] [address] Insurance Providers: All historical and [...] Hurt's Name Patient's Relationship to Policy Hurt [facility] (WNR) MEDICARE ADVANTAGE [facility] (WNR) May 16, 2023 [id number] JEAN JAIN IN PATIENT Selected Encounter This section includes the information on record at MD for the Encounter. Date/Time Encounter Type Encounter Description Reason Provider Source September 22, 2023 10:39 AM EMERGENCY DEPT VISIT [facility] EMERGENCY DEPT ICD-10-CM F10.10 Alcohol abuse, uncomplicated YOUSIF,RADHA IHE Encounter Template Text not used by MD Assessments - Encounter Diagnoses This section includes the primary and secondary diagnoses documented for the Encounter. Date/Time Primary/Secondary Diagnosis Diagnosis Name Provider Source September 22, 2023 02:59 PM PRIMARY Alcohol abuse, uncomplicated YOUSIF,RADHA [facility] Plan of Treatment: Future Appointments (+ 6 months) and Future Tests (+/- 45 days) The Plan of Treatment section includes future care activities for the patient from all MD treatmentfacilities. This section includes future appointments and future orders which are active, pending or scheduled. Future Appointments This section includes appointments that were scheduled to occur 6 months from the date of the Encounter, up to a maximum of 20 appointments. The data comes from all [facility]. Appointment Date/Time Appointment Type Appointme nt Facility Name September 27, 2023 10:30 AM AMBULATORY - PSYCHIATRY [facility] Nov 10, 2023 07:15 AM AMBULATORY MEDICINE [facility] Nov 10, 2023 07:30 AM AMBULATORY MEDICINE [facility] Jan 02, 2024 09:30 AM AMBULATORY MEDICINE [facility] Jan 02, 2024 10:30 AM AMBULATORY MEDICINE [facility] Active, Pending, [...] of theEncounter. The data comes from all [facility]. Test Date/Time Test Type Test Details Facility Name Sep 08, 2023 12:00 AM Laboratory - Chemistry Order CBC BLOOD SP ONCE [facility] Sep 08, 2023 12:00 AM Laboratory - Chemistry Order COMPREHENSIVE METABOLIC PANEL+MG PLASMA SP ONCE [facility] September 22, 2023 01:58 PM Consult Order [facility] Cons Low Raw Sugar Cutter's Choice [facility] September 23, 2023 12:52 PM Laboratory - Microbiology Order GRAM STAIN SPUTUM WC ONCE [facility] September 23, 2023 12:52 PM Laboratory - Microbiology Order CULTURE & SUSCEPTIBILITY SPUTUM WC ONCE [facility] September 23, 2023 01:00 PM Laboratory - Microbiology Order CULTURE & SUSCEPTIBILITY BLOOD WC [facility] September 23, 2023 01:20 PM Laboratory - Microbiology Order CULTURE & SUSCEPTIBILITY BLOOD WC [facility] September 24, 2023 05:30 AM Laboratory - Chemistry Order CBC & DIFF BLOOD LC ONCE [facility] September 24, 2023 05:30 AM Laboratory - Chemistry Order COMPREHENSIVE METABOLIC PANEL+MG PLASMA LC [facility] September 24, 2023 05:30 AM Laboratory - Chemistry Order D-DIMER PLASMA LC ONCE [facility] September 24, 2023 05:30 AM Laboratory - Chemistry Order LACTIC ACID PLASMA UNITS WC ONCE [facility] Lab Results: +/- 30 days of the encounter This section includes the Chemistry and Hematology Lab Results on record with MD for the patient. Radiology Reports and Pathology Reports are provided separately, in subsequent sections. Lab Results This section contains the Chemistry/Hematology Results that were resulted 30 days before or 30 daysafter the date of the Encounter. Date/Time Source Result Type Result - Unit Interpretation Reference Range Comment September 23, 2023 02:30 PM [facility] EXTRA MINT TUBE Specimen Type: PLASMA No comment entered. Ordering Provider: REVA ROSS Report Released Date/Time: September 23, 2023 02:49 PM Reporting Lab: [facility] [address] Performing Lab: [facility] [address] EXTRA MINT TUBE RECEIVED September 23, 2023 04:15 AM [facility] PROCALCITONIN Specimen Type: PLASMA No comment entered. Ordering Provider: WANDA BOWSER Report Released Date/Time: September 23, 2023 04:10 AM Reporting Lab: [facility] [address] Performing Lab: [facility] [address] PROCALCITONIN 0.11 H <0.09 September 23, 2023 04:15 AM [facility] C-REACTIVE PROTEIN Specimen Type: PLASMA No comment entered. Ordering Provider: WANDA BOWSER Report Released Date/Time: September 23, 2023 04:10 AM Reporting Lab: [facility] [address] Performing Lab: [facility] [address] C-REACTIVE PROTEIN 81.34 H <5.00 September 23, 2023 04:15 AM [facility] LIPASE Specimen Type: PLASMA No comment entered. Ordering Provider: REVA ROSS Report Released Date/Time: September 23, 2023 12:52 PM Reporting Lab: [facility] [address] Performing Lab: [facility] [address] LIPASE 12 <60 September 23, 2023 04:15 AM [facility] CBC Specimen Type: BLOOD No comment entered. Ordering Provider: WANDA BOWSER Report Released Date/Time: September 23, 2023 04:10 AM Reporting Lab: [facility] [address] Performing Lab: [facility] [address] WBC 12.24 H 4.0-11.0 RBC 3.93 L 4.6-6.2 HGB 13.9 13.5-17.9 HCT 39.8 L 41-54 MCV 101.3 H 80-100 MCH 35.4 H 27-33 MCHC 34.9 32.0-37.5 PLT 236 150-400 MPV 9.3 7.4-10.4 RDW 12.0 11.5-14.5 September 23, 2023 04:15 AM [facility] COMPREHENSIVE METABOLIC PANEL+MG Specimen Type: PLASMA No comment entered. Ordering Provider: WANDA BOWSER Report Released Date/Time: September 23, 2023 04:10 AM Reporting Lab: [facility] [address] Performing Lab: [facility] [address] CREATININE 1.1 0.7-1.2 UREA NITROGEN 16 8-26 [...] 74 >60 September 22, 2023 01:33 PM [facility] URINALYSIS Specimen Type: URINE No comment entered. Ordering Provider: RADHA DODD Report Released Date/Time: September 22, 2023 10:59 AM Reporting Lab: [facility] [address] Performing Lab: [facility] [address] URINE COLOR YELLOW SPECIFIC GRAVITY 1.032 1.003-1.03 [...] NEGATIVE NEGATIVE September 22, 2023 01:33 PM [facility] COVID-19 AND FLU/RSV DIAG PANEL(CEPHEID) Specimen Typ e: NASOPHARYNGEAL Comment: Cepheid GeneXpert (618) Ordering Provider: RADHA DODD Report Released Date/Time: September 22, 2023 01:26 PM Reporting Lab: [facility] [address] Performing Lab: [facility] [address] COVID-19 (CEPHEID) Not Detected Not Detected INFLUENZA A (PCR) Not Detected Not Detected INFLUENZA B (PCR) Not Detected Not Detected RSV (PCR) Not Detected Not Detected September 22, 2023 01:33 PM [facility] DRUG SCREEN PANEL,URINE Specimen Type: URINE Comment: Presumptive Positive by screen, results not confirmed. Ordering Provider: RADHA DODD Report Released Date/Time: September 22, 2023 10:59 AM Reporting Lab: [facility] [address] Performing Lab: [facility] [address] BARBITURATES Negative Negative AMPHETAMINES Negative Negative COCAINE Negative Negative BENZODIAZEPINES Negative Negative CANNABINOIDS Negative Negative METHADONE Negative Negative OPIATES POSITIVE H Negative PHENCYCLIDINE Negative Negative ETHANOL,URINE Negative Negative DRUG SCREEN CREAT 290.4 >20.0 OXYCODONE Negative Negative BUPRENORPHINE Negative Negative TRAMADOL Negative Negative FENTANYL Negative Negative September 22, 2023 10:55 AM [facility] EXTRA BLUE TUBE Specimen Type: PLASMA No comment entered. Ordering Provider: RADHA DODD Report Released Date/Time: September 22, 2023 11:04 AM Reporting Lab: [facility] [address] Performing Lab: [facility] [address] EXTRA BLUE TUBE RECEIVED September 22, 2023 10:55 AM [facility] LIPASE Specimen Type: PLASMA No comment entered. Ordering Provider: RADHA DODD Report Released Date/Time: September 22, 2023 10:59 AM Reporting Lab: [facility] [address] Performing Lab: [facility] [address] LIPASE 27 <60 September 22, 2023 10:55 AM [facility] ETHANOL Specimen Type: PLASMA No comment entered. Ordering Provider: RADHA DODD Report Released Date/Time: September 22, 2023 10:59 AM Reporting Lab: [facility] [address] Performing Lab: [facility] [address] ETHANOL Negative NEGATIVE September 22, 2023 10:55 AM [facility] EXTRA GOLD GEL TUBE Specimen Type: SERUM No comment entered. Ordering Provider: RADHA DODD Report Released Date/Time: September 22, 2023 11:04 AM Reporting Lab: [facility] [address] Performing Lab: [facility] [address] EXTRA GOLD GEL TUBE RECEIVED September 22, 2023 10:55 AM [facility] COMPREHENSIVE METABOLIC PANEL+MG Specimen Type: PLASMA No comment entered. Ordering Provider: RADHA DODD Report Released Date/Time: September 22, 2023 10:59 AM Reporting Lab: [facility] [address] Performing Lab: [facility] [address] CREATININE 1.0 0.7-1.2 UREA NITROGEN 16 8-26 [...] 82 >60 September 22, 2023 10:55 AM [facility] CBC & DIFF Specimen Type: BLOOD Comment: Automated Differential Performed Ordering Provider: RADHA DODD Report Released Date/Time: September 22, 2023 10:59 AM Reporting Lab: [facility] [address] Performing Lab: [facility] [address] WBC 16.53 H 4.0-11.0 RBC 4.55 L [...] 2023 03:44 PM 97.5 110 105/75 97 [facility] September 22, 2023 03:39 PM 240.8 34 [facility] September 22, 2023 11:11 AM 98.5 105 136/94 18 4 [facility] Social History: Smoking Status (Most current) and Tobacco Use (All prior to encounter date) This section includes the most current, and the historical, smoking and tobacco- related health factors from the MD facility where the Encounter took place. Current Smoking Status This section includes the most current smoking, or tobacco-related health factor, from the MD facility where the Encounter took place. Date/Time Current Smoking Status Comment Nigel ity Jun 02, 2023 11:00 AM VA-TOBACCO FORMER USER [facility] Tobacco Use History This section includes a history of the smoking, or tobacco-related health factors, that were collected on or before the date of the Encounter. The data comes from the MD facility where the Encounter took place. Date/Time Smoking Status/Tobacco Use Comment F acility Jun 02, 2023 11:00 AM MD-TOBACCO QUIT 5 TO < 15 YRS [facility] May 21, 2022 10:30 AM VA-TOBACCO FORMER USER [facility] May 21, 2022 10:30 AM VA-TOBACCO QUIT 15 YRS OR MORE [facility] Nov 12, 2020 12:00 PM VA-TOBACCO FORMER USER [facility] Nov 12, 2020 12:00 PM VA-TOBACCO QUIT 5 TO < 15 YRS [facility] May 31, 2019 06:22 AM INPT NO TOBACCO USE IN LAST 30 D AYS [facility] Nov 08, 2017 01:55 PM VA-TOBACCO FORMER USER [facility] Nov 08, 2017 01:55 PM VA-TOBACCO QUIT 1 TO < 5 YRS [facility] May 11, 2017 12:43 PM FORMER TOBACCO USE >1Y <7Y [facility] Aug 04, 2016 10:25 AM FORMER TOBACCO USE >1Y <7Y [facility] Aug 04, 2015 11:31 AM FORMER TOBACCO USE <1Y [facility] Aug 13, 2014 10:50 AM CURRENT TOBACCO USER [facility] October 10, 2013 09:12 AM FORMER TOBACCO USER 7Y OR GREATE R [facility] May 26, 2012 10:14 AM CURRENT TOBACCO USER [facility] Nov 19, 2009 12:07 PM CURRENT TOBACCO USER [facility] Advance Directives: All historical and current Section Date Range: From patient's date of to the date document was created. This section includes ALL of a patient's completed or amended MD Advance and Rescinded Directives. The entries below indicate that a directive exists for the patient, but an actual copy is not included with this document. The data comes from all [facility]. Date Advance Directives Provider Source May 11, 2006 ADVANCE DIRECTIVE ASH RAZO [facility] Radiology Reports: +/- 30 days [...] the Encounter. The data comes from all MD treatment facilities. Date/Time Radiology Report Provider Source September 23, 2023 01:38 PM CHEST 1 VIEW: CALVIN JAIN [id number] -[id number] M Exm Date: SEPTEMBER 23, 2023@13:38 Req Phys: REVA ROSS Loc: 3LS/09-23-2023@14:51 Img Loc: MAIN X-RAY Service: PRIMARY CARE [place] [address] (Case [id number] COMPLETE) CHEST 1 VIEW (RAD Detailed) CPT:87607 Proc Modifiers : PORTABLE EXAM Reason for Study: see below Clinical History: IS NOT under investigation for COVID-19 or is COVID-19 negative SIRS criteria, no overt sx, please r/o any opacities Responsible provider name and phone number to notify for critical findings if other than user placing the order and pager listed below: User placing orders pager: [phone] LAST CREATININE 1.1 (09/23/23) Report Status: Verified Date Reported: SEPTEMBER 23, 2023 Date Verified: SEPTEMBER 23, 2023 Turkish Line Attendant E-Sig:/ES/JANETH OROZCO DO Report: EXAMINATION: CHEST 1 VIEW Reason for Study: see below Christopher IS NOT under investigation for COVID-19 or is COVID-19 negative SIRS criteria, no overt sx, please r/o any opacities Responsible provider name and phone number to notify for critical findings if other than user placing the order and pager listed below: User placing orders pager: [phone] LAST CREATININE 1.1 (09/23/23) see below TECHNIQUE: [...] Primary Interpreting Staff: JANETH OROZCO DO, RADIOLOGIST (Turkish Line Attendant) /JANETH RASHEED [facility] Encounter Notes: All associated encounter notes This section contains the clinical notes associated to the Encounter. Date/Time Encounter Note(s) Provider Source September 22, 2023 11:04 AM PHYSICIAN EMERGENCY DEPT NOTE: LOCAL TITLE: EMERGENCY DEPT NOTE STANDARD TITLE: PHYSICIAN EMERGENCY DEPT NOTE DATE OF NOTE: SEPTEMBER 22, 2023@11:04 ENTRY DATE: SEPTEMBER 22, 2023@11:06:17 AUTHOR: RADHA DODD EXP COSIGNER: URGENCY: STATUS: COMPLETED Nurse's note reviewed as available. Chief Complaint: The patient is a 68 yo MALE complaining of: Abdominal pain vomiting History of present illness: The patient history of alcoholism presents with nausea vomiting and abdominal pain after cessation of binge drinking alcohol 5 days ago. He said he was drinking 6-7 hard alcoholic drinks per day. Sometimes more. The patient said he lives alone and would like to be admitted to a correction so he can start eating and drinking again. He said he feels scared at home because when he starts throwing up he has no one to help him. He is not taking any medication for symptoms. He denies any history of alcoholic liver disease or pancreatitis. He said he has never had any serious alcohol withdrawal or seizures. Allergies: PENICILLIN (Nov 19, 2009) ZOLPIDEM (Dec 26, 2014) KENALONE INJECTION (40 MG/ML) (Oct 26, 2018) Review of Systems: A complete 10 point review of systems is negative unless otherwise noted in HPI or below. Past Medical History: Active problems - Computerized Problem List is the source for the followin. Osteoarthritis of knee (SNOMED CT 769881082) 2. Primary Obesity 3. Screening for Ischemic Heart Disease 4. Primary insomnia 5. Low back pain (SNOMED CT 574636194) 6. Sacroiliitis 7. Tobacco Use Disorder, Continuous - Quit cigarettes 2012 8. Sensorineural Hearing Loss, Bilateral 9. Pseudogout - Left knee 10. Hyperlipidemia (SNOMED CT 27780023) 11. Obstructive Sleep Apnea (Adult) (Pediatric) - 07/06/12 Mild: PRDI 16.4: on CPAP. 12. Depression * 13. 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 Compression fracture of thoracic spine (SNOMED CT 320417508) 16. PAIN, NECK/CERVICALGIA 17. Posttraumatic stress disorder - has service dog 18. Knee pain 19. OEF/OIF EXPOSURE TO BURN PIT SMOKE 20. OEF/OIF EXPOSURE TO SANDSTORMS/DUSTSTORMS 21. Dyspnea on exertion (SNOMED CT 74196381) 22. Dyspnea on exertion 23. Pain radiating to right side of chest 24. Hypertension 25. Inflammatory polyarthritis 26. High risk drug monitoring status 27. Ethanol abuse 28. Exposure to potentially hazardous substance ([facility] [id number]) - Entered through [facility]/VISN23 SHELL Documentation Initiative Social History: Smokes cigarettes, drinks alcohol Medications: Active Outpatient Medications (excluding Supplies): Outpatient Medications Status 1) ACETAMINOPHEN 500MG TAB [...] TAKE ONE CAPSULE BY MOUTH AT ACTIVE (S) BEDTIME --MAY INCREASE DOSE BY ONE CAPSULE [...] MOUTH AT BEDTIME ACTIVE 18 Total Medications Physical Exam Temp: 97.8 F [36.6 C] (07/07/2023 10:56) Blood Pressure: 130/88 (07/07/2023 10:56) Heart Rate: 106 (07/07/2023 10:56) Resps: 17 (07/07/2023 10:56) O2: 94% (07/07/2023 10:56) General: NAD, alert and conversant Head: NC/AT Eyes: PERRLA, EOMI ENT: Posterior phranynx clear, no tonsillar enlargement, tongue not swollen Neck: supple, no meningismus, No JVD Cardiovascular: RRR, no m/r/g Respiratory: Lungs - CTAB without crackles or wheezes Abdominal: s/nt/nd +BS Rectal: deferred Neuro: alert, cranial nerves II-XII intact, grossly nonfocal Extremities: no clubbing, cyanosis, or edema Skin: warm and dry Ekg Interpretation: Performed at 10:52 AM. This shows a sinus rhythm with a heart rate of 100 bpm. There is normal axis. Nonspecific ST segment abnormality is noted in the anterolateral leads. Lab Results: Reporting Lab: [facility] [CLIA# [id number]] [place] [address] Report Released Date/Time: September 22, 2023@14:17 Provider: RADHA DODD Specimen: URINE. UDS [id number] Specimen Collection Date: September 22, 2023@13:33 Test name Result units Ref. range Site Code AMPHETAMINES Negative Ref: Negative [618] Eval: Amphetamines cutoff 500 ng/mL. BARBITURATES Negative Ref: Negative [618] Eval: Barbiturates cutoff 200 ng/mL. BENZODIAZEPINES Negative Ref: Negative [618] Eval: Benzodiazepines cutoff 200 ng/mL. BUPRENORPHINE Negative Ref: Negative [618] Eval: Buprenorphine cutoff 10 ng/mL. CANNABINOIDS Negative Ref: Negative [618] Eval: Cannabinoids cutoff 50 ng/mL. COCAINE Negative Ref: Negative [618] Eval: Cocaine cutoff 150 ng/mL. ETHANOL,URINE Negative Ref: Negative [618] Eval: Ethanol cutoff 10 mg/dL. FENTANYL Negative Ref: Negative [618] Eval: Fentanyl cutoff 2.0 ng/mL. Effective 04/16/2020. METHADONE Negative Ref: Negative [618] Eval: Methadone cutoff 300 ng/mL. OPIATES POSITIVE H Ref: Negative [618] Eval: Opiates cutoff 300 ng/mL. The opiate screen test is designed to Eval: detect the presence of morphine and codeine. Heroin metabolizes Eval: to morphine. However, opioids like hydrocodone/hydromorphone, Eval: oxycodone/oxymorphone at high concentrations can also produce a Eval: positive opiate result. Other opioids like buprenorphine, Eval: fentanyl or fentanyl analogs are not detected in the opiate Eval: screen. Confirmation testing must be ordered, if needed, to Eval: identify presence of drug(s) producing the presumptive positive Eval: screen result. PHENCYCLIDINE Negative Ref: Negative [618] Eval: Phencyclidine cutoff 25 ng/mL. OXYCODONE Negative Ref: Negative [618] Eval: Oxycodone cutoff 100 ng/mL. TRAMADOL Negative Ref: Negative [618] Eval: Tramadol cutoff 200 ng/mL. DRUG SCREEN CREAT 290.4 mg/dL Ref: >=20.0 [618] Comment: Presumptive Positive by screen, results not confirmed. Reporting Lab: [facility] [CLIA# [id number]] [place] [address] Report Released Date/Time: September 22, 2023@14:24 Provider: RADHA DODD Specimen: NASOPHARYNGEAL. COV 24 [id number] Specimen Collection Date: September 22, 2023@13:33 Test name Result units Ref. range Site Code COVID-19 (CEPHEID) Not Detected Ref: Not Detected [618] Eval: Testing was performed with the PLUS test 03/11/21. Eval: This testing, RT-PCR,has been authorized by FDA under an Eval: Emergency Use Authorization(EUA) for Coronavirus Disease-2019 Eval: during the Public Health Emergency. This test has been Eval: validated in accordance with the FDA's Guidance Document Policy Eval: for EUA use and Accelerated Template for Laboratories Certified Eval: to Perform High-Complexity Testing Under CLIA: EUA Template Eval: (Updated July 21, 2019) This test is only authorized for the Eval: duration of time the declaration that circumstances exist Eval: justifying the authorization of the emergency use of in vitro Eval: diagnostic tests for detection of SARS-CoV-2 virus and/or Eval: diagnosis of COVID-19 infection under section 564(b)(1) of the Eval: Act, 21U.S.C. 360bbb-3(b)(1), unless the authorization is Eval: terminated or revoked sooner. INFLUENZA A (PCR) Not Detected Ref: Not Detected [618] INFLUENZA B (PCR) Not Detected Ref: Not Detected [618] RSV (PCR) Not Detected Ref: Not Detected [618] Comment: ROXIMITYheid GeneXpert (618) Reporting Lab: [facility] [CLIA# [id number]] [place] [address] Report Released Date/Time: September 22, 2023@13:47 Provider: RADHA DODD Specimen: URINE. UA [id number] Specimen Collection Date: September 22, 2023@13:33 Test name Result units Ref. range Site Code APPEARANCE CLEAR [618] URINE COLOR YELLOW [618] SPECIFIC GRAVITY 1.032 1.003 - 1.035 [618] URINE PH 5.5 5.0 - 8.0 [618] URINE GLUCOSE NEGATIVE mg/dL Ref: <30 [618] URINE BILIRUBIN 1+ Ref: NEGATIVE [618] URINE KETONES 4+ Ref: NEGATIVE [618] URINE BLOOD NEGATIVE Ref: NEGATIVE [618] URINE PROTEIN 50 mg/dL Ref: <20 [618] URINE NITRITE NEGATIVE Ref: NEGATIVE [618] LEUKOCYTE ESTERASE NEGATIVE Vishnu/uL Ref: NEGATIVE [618] URINE WBC/HPF 1 /HPF 0 - 7 [618] URINE RBC/HPF 1 /HPF 0 - 3 [618] HYALINE CASTS 1 /LPF [618] SQUAMOUS EPITHELIAL NONE SEEN /HPF [618] URINE BACTERIA NONE SEEN [618] Reporting Lab: [facility] [CLIA# [id number]] [place] [address] Report Released Date/Time: September 22, 2023@13:01 Provider: RADHA DODD Specimen: PLASMA. XTR [id number] Specimen Collection Date: September 22, 2023@10:55 Test name Result units Ref. range Site Code EXTRA BLUE TUBE RECEIVED [618] Reporting Lab: [facility] [CLIA# [id number]] [place] [address] Report Released Date/Time: September 22, 2023@13:01 Provider: RADHA DODD Specimen: SERUM. XTR [id number] Specimen Collection Date: September 22, 2023@10:55 Test name Result units Ref. range Site Code EXTRA GOLD GEL TUBE RECEIVED [618] Reporting Lab: [facility] [CLIA# [id number]] [place] [address] Report Released Date/Time: September 22, 2023@11:35 Provider: RADHA DODD Specimen: PLASMA. [id number] Specimen Collection Date: September 22, 2023@10:55 Test name Result units Ref. range Site Code .CREAT EGFR(CKD-EPI) 82 Ref: >=60 [618] Eval: The eGFR generally decreases with age and in the general population, an Eval: eGFR >60mL/min/1.73 m2 in the absence of increased urine albumin excretion Eval: or structural abnormalities does not represent CKD. Eval: Eval: CKD is diagnosed based on abnormalities of kidney structure or function, Eval: present for >3 months, with implications for health and disease. CKD is Eval: classified and staged based on cause, eGFR, and albuminuria (quantified as Eval: urine albumin to creatinine ratio). Eval: Eval: Below are the eGFR cut off values for CKD stages: Eval: Eval: eGFR (mL/min/1.73 1.73 m2) CKD stage Interpretation Eval: >=90 G1 Normal Eval: 60-89 G2 Mild decrease Eval: 45-59 G3A Mild to moderate decrease Eval: 30-44 G3B Moderate to severe decrease Eval: 15-29 G4 Severe decrease Eval: <15 G5 Kidney failure SODIUM 136 mmol/L 136 - 145 [618] POTASSIUM 3.9 mmol/L 3.5 - 5.1 [618] Eval: Serum potassium results are generally 5% higher than plasma. CHLORIDE 93 L mmol/L 98 - 107 [618] CO2 23 mmol/L 22 - 29 [618] Eval: To calculate Anion Gap use (Na)-[(Cl)+CO2] ANION GAP 20 H mmol/L 5 - 15 [618] GLUCOSE 120 H mg/dL 70 - 100 [618] Eval: Reference Range is based on fasting specimen. Eval: Patients taking Sulfasalazine may see a negative bias on Glucose Eval: levels. UREA NITROGEN 16 mg/dL 8 - 26 [618] CREATININE 1.0 mg/dL 0.7 - 1.2 [618] PROTEIN,TOTAL 7.5 g/dL 6.0 - 8.3 [618] Eval: Plasma values are generally 0.3 to 0.5 g/dL higher than serum values. ALBUMIN 4.2 g/dL 3.5 - 5.2 [618] CALCIUM 10.3 H mg/dL 8.4 - 10.2 [618] MAGNESIUM 1.5 L mg/dL 1.6 - 2.6 [618] BILIRUBIN, TOTAL 1.0 mg/dL 0.2 - 1.2 [618] ALKALINE PHOSPHATASE 152 H U/L 40 - 150 [618] AST/SGOT 51 H U/L Ref: <=34 [618] Eval: Patients taking Sulfasalazine may see a negative bias on AST levels ALT/SGPT 54 U/L Ref: <=55 [618] Eval: Patients taking Sulfasalazine may see a negative bias on ALT levels LIPASE 27 U/L Ref: <=60 [618] ETHANOL Negative mg/dL Ref: NEGATIVE [618] Reporting Lab: [facility] [CLIA# [id number]] [place] [address] Report Released Date/Time: September 22, 2023@11:12 Provider: RADHA DODD Specimen: BLOOD. [id number] Specimen Collection Date: September 22, 2023@10:55 Test name Result units Ref. range Site Code WBC 16.53 H K/cmm 4.0 - 11.0 [618] RBC 4.55 L M/cmm 4.6 - 6.2 [618] HGB 16.0 g/dL 13.5 - 17.9 [618] HCT 45.5 % 41 - 54 [618] MCV 100.0 fL 80 - 100 [618] MCH 35.2 H pg 27 - 33 [618] MCHC 35.2 g/dL 32.0 - 37.5 [618] RDW 12.1 % 11.5 - 14.5 [618] PLT 333 K/cmm 150 - 400 [618] MPV 8.8 fL 7.4 - 10.4 [618] NEUT 83.4 H % 40.0 - 80.0 [618] LYMPHS 7.4 L % 15.0 - 45.0 [618] MONO 7.3 % 2.0 - 12.0 [618] EOSINO 0.1 % 0.0 - 6.0 [618] BASO 0.5 % 0.0 - 2.0 [618] IG(META,MYELO,PRO) 1.3 % [618] ABS NEUT 13.78 H K/cmm 2.0 - 7.7 [618] ABS LYMPH 1.23 K/cmm 1.0 - 4.0 [618] ABS MONO 1.21 H K/cmm 0.1 - 1.0 [618] ABS EOS 0.01 K/cmm 0 - 0.5 [618] ABS BASO 0.09 K/cmm 0 - 0.2 [618] ABS IMMATURE GRAN 0.21 H K/UL 0 - 0.1 [618] Comment: Automated Differential Performed Consultative Services Service: POD/MH @ [id number] Name of salesforce consultant: Marcia will see patient in ED 1327: Marcia will arrange for admission to 1L DDX: Includes alcohol withdrawal, pancreatitis, dehydration, electrolyte abnormality, acute kidney injury ASSESSMENT/PLAN: 1)alcoholism wanting detox: medically cleared and will be admitted to 1L for detox. F/u pcp if symptoms persist. Return to ER if worse. /ubaldo/ RADHA DODD MD PHYSICIAN Signed: 09/22/2023 14:29 Receipt Acknowledged By: 09/22/2023 17:36 /ubaldo/ HA HENDERSON MD Staff Physician RADHA DODD [facility] September 22, 2023 11:02 AM NURSING EMERGENCY DEPT TRIAGE NOTE: LOCAL TITLE: EMERGENCY DEPARTMENT NURSING TRIAGE NOTE STANDARD TITLE: NURSING EMERGENCY DEPT TRIAGE NOTE DATE OF NOTE: SEPTEMBER 22, 2023@11:02 ENTRY DATE: SEPTEMBER 22, 2023@11:03 AUTHOR: ESTEVAN MAGUIRE EXP COSIGNER: URGENCY: STATUS: COMPLETED Emergency Department/Urgent Care Center Triage Patient age:68 Sex: MALE On arrival patient was: STRETCHER , AMBULANCE Patient phone number: Allergies: PENICILLIN (Nov 19, 2009) ZOLPIDEM (Dec 26, 2014) KENALONE INJECTION (40 MG/ML) (Oct 26, 2018) Subjective/Chief Complaint: Abdominal pain: Patient states he quit drinking 5 days ago, cold turkey and started having abdominal pain last night at 8pm. Patient states he hasn't been able to eat or drink since stopping the alcohol. Verbalizes he [facility] to go to [facility] for [facility] detox because it's too difficult to detox from alcohol at home. Denies seizures related to quitting alcohol. Objective: alert, oriented, no distress noted upon arrival by EMS. The patient is a fall risk. Intervention: side rails x2 Vital Signs * Temperature 98.5 F (36.9 C) Pulse 105 Respirations 18 Blood Pressure 136/94 Pain scale recorded: 4 Pulse Oximetry 96 Room Air PAIN INTENSITY: (Patient rates the pain. 0 = no pain; 10 = worst pain) Is your pain new with this visit? (acute or chronic) Current Pain rating score: 6 (07/07/2023 10:56) Pain score at worst: 4 Pain score at best: Location of pain: [place] Description of pain: sharp Duration: 15 hours Aggravating factors: Alleviating factors: Emergency Severity Index (SAÚL) level Level 3 Current Medications: Active Outpatient Medications (including Supplies): Active Outpatient [...] TAKE ONE CAPSULE BY MOUTH AT ACTIVE (S) BEDTIME --MAY INCREASE DOSE BY ONE CAPSULE [...] MOUTH AT BEDTIME ACTIVE 18 Total Medications Current Problems: Osteoarthritis of knee ([facility] [id number]) Primary Obesity (ICD-9-CM 278.00) Screening for Ischemic Heart Disease (ICPrimary insomnia (ICD-9-CM 780.52) Low back pain (SCT [id number]) Sacroiliitis (ICD-9-CM 720.2) Tobacco Use Disorder, Continuous ([facility]-5-Rezuvarravsyd Hearing Loss, Bilateral (ICD-9-CM 389.18) Pseudogout (ICD-9-CM 275.49) Hyperlipidemia ([facility] [id number]) Obstructive Sleep Apnea (Adult) (PediatrDepression (ICD-9-CM 311.) Cataract nos (ICD-9-CM 366.9) 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) Compression fracture of thoracic spine (PAIN, NECK/CERVICALGIA (ICD-9-CM 723.1) Posttraumatic stress disorder ([facility] 40522Lijd pain ([facility] [id number]) OEF/OIF EXPOSURE TO BURN PIT SMOKE (ICD-OEF/OIF EXPOSURE TO SANDSTORMS/DUSTSTORMS (ICD-10-CM R69.) Dyspnea on exertion ([facility] [id number]) Dyspnea on exertion ([facility] [id number]) Pain radiating to right side of chest (SHypertension ([facility] 08226124) Inflammatory polyarthritis ([facility] [id number] risk drug monitoring status ([facility] [id number]) Ethanol abuse ([facility] 63563038) Exposure to potentially hazardous substance ([facility] [id number]) Identification of Seniors at Risk (ISAR):* Defer screen age Suicide Screen: [place] Suicide Severity Rating Scale (C-SSRS) screener 1. Over the past month, have you wished you were or wished you could go to sleep and not wake up? No 2. Over the past month, have you had any actual thoughts of killing yourself? No 3. Over the past month, have you been thinking about how you might do this? Response not required due to responses to other questions. 4. Over the past month, have you had these thoughts and had some intention of acting on them? Response not required due to responses to other questions. 5. Over the past month, have you started to work out or worked out the details of how to kill yourself? Response not required due to responses to other questions. 6. If yes, at any time in [...] went to the roof but didn't jump)? No 8. If YES, was this within the past 3 months? Response not required due to responses to other questions. /ubaldo/ ESTEVAN MAGUIRE RN REGISTERED NURSE Signed: 09/22/2023 11:12 ESTEVAN MAGUIRE [facility]
--- OUTSIDE RECORDS SUMMARY | 2023-09-23 17:21 | XMS_ITS | Encounter Summary ---
Author Name [employer] [facility] [employer] Organization [facility] Address [address] [place] [address] Support Name Relationship Address Phone MARIBELL, VITO Next of Kin [phone] [place] [address] MARIBELLVITO GUILLERMO Emergency Contact [address] [place] [address] Insurance Providers: All historical and [...] Hurt's Name Patient's Relationship to Policy Hurt [facility] M[facility] (WNR) MEDICARE ADVANTAGE [facility] (WNR) May 16, 2023 [id number] JEAN JAIN IN PATIENT Selected Encounter This section includes the information on record at [place] for the Encounter. Date/Time Encounter Type Encounter Description Reason Pro vider Source IHE Encounter Template Text not used by [facility] Advance Directives: All historical and current Section Date Range: From patient's date of to the date document was created. This section includes ALL of a patient's completed or amended [place] Advance and Rescinded Directives. The entries below indicate that a directive exists for the patient, but an actual copy is not included with this document. The data comes from all [place] facilities. Date Advance Directives Provider Source May 11, 2006 ADVANCE DIRECTIVE [facility]
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
--- OUTSIDE RECORDS SUMMARY | 2023-09-23 17:22 | XMS_ITS | Encounter Summary ---
Author Name [employer] Organization [facility] [employer] Address [address] [place] [address] Support Name Relationship Address Phone MARIBELLDIANEVITO Next of Kin [id number] [place] [address] VITO REYNA Emergency Contact [address] [place] [address] Insurance Providers: All historical and [...] [facility] (WNR) MEDICARE ADVANTAGE [facility] (WNR) May 16, 2023 [id number] JEAN JAIN IN PATIENT Selected Encounter This section includes the information on record at [place] for the Encounter. Date/Time Encounter Type Encounter Description Reason Pro vider Source September 22, 2023 03:33 PM Inpatient Visit CLINICAL PHARMACY E Encounter Template Text not used by [place] Plan of Treatment: Future Appointments (+ 6 months) and Future Tests (+/- 45 days) The Plan of Treatment section includes future care activities for the patient from all [place] treatmentfacilities. This section includes future appointments and future orders which are active, pending or scheduled. Future Appointments This section includes appointments that were scheduled to occur 6 months from the date of the Encounter, up to a maximum of 20 appointments. The data comes from all [place] treatment facilities. Appointment Date/Time Appointment Type Appointme nt Facility Name September 27, 2023 10:30 AM AMBULATORY - PSYCHIATRY [facility] Nov 10, 2023 07:15 AM AMBULATORY - MEDICINE [facility] Nov 10, 2023 07:30 AM AMBULATORY - MEDICINE [facility] Jan 02, 2024 09:30 AM AMBULATORY MEDICINE [facility] Jan 02, 2024 10:30 AM AMBULATORY MEDICINE [facility] Active, Pending, [...] of theEncounter. The data comes from all [facility]. Test Date/Time Test Type Test Details Facility Name Sep 08, 2023 12:00 AM Laboratory - Chemistry Order COMPREHENSIVE METABOLIC PANEL+MG PLASMA SP ONCE [facility] Sep 08, 2023 12:00 AM Laboratory - Chemistry Order CBC BLOOD SP ONCE [facility] September 22, 2023 01:58 PM Consult Order [facility] REHABILITATION TREATMENT [facility] Check Writer's Choice [facility] September 23, 2023 [...] Microbiology Order CULTURE & SUSCEPTIBILITY BLOOD [facility] September 24, 2023 05:30 AM Laboratory - Chemistry Order COMPREHENSIVE METABOLIC PANEL+MG PLASMA LC [facility] September 24, 2023 05:30 AM Laboratory - Chemistry Order CBC & DIFF BLOOD LC ONCE [facility] September 24, 2023 05:30 AM Laboratory - Chemistry Order D-DIMER PLASMA LC ONCE [facility] September 24, 2023 05:30 AM Laboratory - Chemistry Order LACTIC ACID PLASMA UNITS WC ONCE [facility] Lab Results: +/- 30 days of the encounter This section includes the Chemistry and Hematology Lab Results on record with [place] for the patient. Radiology Reports and Pathology [...] September 23, 2023 02:49 PM Reporting Lab: [facility] [id number] Performing Lab: [facility] [address] EXTRA MINT TUBE RECEIVED September 23, 2023 04:15 AM [facility] C-REACTIVE PROTEIN Specimen Type: PLASMA No comment entered. Ordering Provider: WANDA BOWSER Report Released Date/Time: September 23, 2023 04:10 AM Reporting Lab: [facility] [address] Performing Lab: [facility] [address] C-REACTIVE PROTEIN 81.34 H <5.00 September 23, 2023 04:15 AM [facility] PROCALCITONIN Specimen Type: PLASMA No comment entered. Ordering Provider: WANDA BOWSER Report Released Date/Time: September 23, 2023 04:10 AM Reporting Lab: [facility] [address] Performing Lab: [facility] [address] PROCALCITONIN 0.11 H <0.09 September 23, 2023 04:15 AM [facility] LIPASE Specimen Type: PLASMA No comment entered. Ordering Provider: REVA ROSS Report Released Date/Time: September 23, 2023 12:52 PM Reporting Lab: [facility] [address] Performing Lab: [facility] [address] LIPASE 12 <60 September 23, 2023 04:15 AM [facility] CBC Specimen Type: BLOOD No comment entered. Ordering Provider: WANDA BOWSER Report Released Date/Time: September 23, 2023 04:10 AM Reporting Lab: [facility] [address] Performing Lab: [facility] [address] WBC 12.24 H 4.0-11.0 RBC 3.93 L [...] September 23, 2023 04:10 AM Reporting Lab: [facility] [address] Performing Lab: [facility] [address] CREATININE 1.1 0.7-1.2 UREA NITROGEN 16 8-26 [...] September 22, 2023 10:59 AM Reporting Lab: [facility] [address] Performing Lab: [facility] [address] BARBITURATES Negative Negative AMPHETAMINES Negative Negative COCAINE [...] September 22, 2023 10:59 AM Reporting Lab: [facility] [address] Performing Lab: [facility] [address] URINE COLOR YELLOW SPECIFIC GRAVITY 1.032 1.003-1.03 [...] DIAG PANEL(CEPHEID) Specimen Typ e: NASOPHARYNGEAL Comment: Spinal Integration GeneXpert (618) Ordering Provider: RADHA DODD Report Released Date/Time: September 22, 2023 01:26 PM Reporting Lab: [facility] [address] Performing Lab: [facility] [address] COVID-19 (CEPHEID) Not Detected Not Detected INFLUENZA A (PCR) Not Detected Not Detected INFLUENZA B (PCR) Not Detected Not Detected RSV (PCR) Not Detected Not Detected September 22, 2023 10:55 AM [facility] EXTRA BLUE TUBE Specimen Type: PLASMA No comment entered. Ordering Provider: RADHA DODD Report Released Date/Time: September 22, 2023 11:04 AM Reporting Lab: [facility] [address] Performing Lab: [facility] [address] EXTRA BLUE TUBE RECEIVED September 22, 2023 10:55 AM [facility] LIPASE Specimen Type: PLASMA No comment entered. Ordering Provider: RADHA DODD Report Released Date/Time: September 22, 2023 10:59 AM Reporting Lab: [facility] [address] Performing Lab: [facility] [address] LIPASE 27 <60 September 22, 2023 10:55 AM [facility] ETHANOL Specimen Type: PLASMA No comment entered. Ordering Provider: RADHA DODD Report Released Date/Time: September 22, 2023 10:59 AM Reporting Lab: [facility] [address] Performing Lab: [facility] [address] ETHANOL Negative NEGATIVE September 22, 2023 10:55 AM [facility] EXTRA GOLD GEL TUBE Specimen Type: SERUM No comment entered. Ordering Provider: RADHA DODD Report Released Date/Time: September 22, 2023 11:04 AM Reporting Lab: [facility] [address] Performing Lab: [facility] [address] EXTRA GOLD GEL TUBE RECEIVED September 22, 2023 10:55 AM [facility] COMPREHENSIVE METABOLIC PANEL+MG Specimen Type: PLASMA No comment entered. Ordering Provider: RADHA DODD Report Released Date/Time: September 22, 2023 10:59 AM Reporting Lab: [facility] [address] Performing Lab: [facility] [address] CREATININE 1.0 0.7-1.2 UREA NITROGEN 16 8-26 [...] September 22, 2023 10:59 AM Reporting Lab: [facility] [address] Performing Lab: [facility] [address] WBC 16.53 H 4.0-11.0 RBC 4.55 L [...] 2023 03:44 PM 97.5 110 105/75 97 [facility] September 22, 2023 03:39 PM 240.8 34 [facility] September 22, 2023 11:11 AM 98.5 105 136/94 18 4 [facility] Social History: Smoking Status (Most current) and Tobacco Use (All prior to encounter date) This section includes the most current, and the historical, smoking and tobacco- related health factors from the [place] facility where the Encounter took place. Current Smoking Status This section includes the most current smoking, or tobacco-related health factor, from the [place] facility where the Encounter took place. Date/Time Current Smoking Status Comment Nigel terrazas Jun 02, 2023 11:00 AM VA-TOBACCO FORMER USER [facility] Tobacco Use History This section includes a history of the smoking, or tobacco-related health factors, that were collected on or before the date of the Encounter. The data comes from the [place] facility where the Encounter took place. Date/Time [...] ALL of a patient's completed or amended [place] Advance and Rescinded Directives. The entries below indicate that a directive exists for the patient, but an actual copy is not included with this document. The data comes from all [facility]. Date Advance Directives Provider Source May 11, [...] the Encounter. The data comes from all [place] treatment facilities. Date/Time Radiology Report Provider Source September 23, 2023 01:38 PM CHEST 1 VIEW: CALVIN JAIN [id number] M Exm Date: SEPTEMBER 23, 2023@13:38 Req Phys: REVA ROSS Loc: 09-23-2023@14:51 Img Loc: MAIN X-RAY Service: [place] [address] (Case [id number] COMPLETE) CHEST 1 VIEW (RAD Detailed) CPT:12582 Proc Modifiers : PORTABLE EXAM Reason for Study: see below Clinical History: IS NOT under investigation for COVID-19 or is COVID-19 negative SIRS criteria, no overt sx, please r/o any opacities Responsible provider name and phone number to notify for critical findings if other than user placing the order and pager listed below: User placing orders pager: [phone] LAST CREATININE 1.1 (09/23/23) Report Status: Verified Date Reported: SEPTEMBER 23, 2023 Date Verified: SEPTEMBER 23, 2023 Supervisor Functional Testing E-Sig:/ES/JANETH OROZCO DO Report: EXAMINATION: CHEST 1 VIEW Reason for Study: see below IS NOT under investigation for COVID-19 or is COVID-19 negative SIRS criteria, no overt sx, please r/o any opacities Responsible provider name and phone number to notify for critical findings if other than user placing the order and pager listed below: User placing orders pager: [phone] LAST CREATININE 1.1 (09/23/23) see below TECHNIQUE: [...] Primary Interpreting Staff: JANETH OROZCO DO, RADIOLOGIST (Natalie) /JANETH RASHEED [facility] Encounter Notes: All associated encounter notes This section contains the clinical notes associated to the Encounter. Date/Time Encounter Note(s) Provider Source September 22, 2023 03:33 PM PHARMACY MEDICATIO N MGT NOTE: LOCAL TITLE: DRUG RECONCILIATION ON ADMIT STANDARD TITLE: PHARMACY MEDICATION MGT NOTE DATE OF NOTE: SEPTEMBER 22, 2023@15:33 ENTRY DATE: SEPTEMBER 22, 2023@15:33:28 AUTHOR: JOSEMANUEL MONTANO COSIGNER: URGENCY: STATUS: COMPLETED DRUG RECONCILIATION ON ADMIT Has ADDENDA PHARMACY MEDICATION HISTORY NOTE = Medication & allergy history was compiled by pharmacy to assist providers ordering inpatient medications. Essential med list includes active local & remote VA rxs, non-VA meds, recently rxs within last 180 days, recently discontinued rxs within last 90 days, clinic med orders, pending med orders, & inpatient med orders. Current active & pending inpatient med orders will be reviewed to complete medication reconciliation. With the exception of allergies, if a category is not listed below, there were no relevant meds for the patient. See [facility] Emergency Department documentation for medications given during emergency department visit. Seasonal Influenza Immunization: He reports that he received an influenza vaccine this year at the [facility]. INTERVIEW Patient and/or caregiver has been INTERVIEWED by pharmacy. Patient reports last scheduled medication(s) were taken prior to admit as prescribed. AM doses taken today. Due for bedtime doses tonight. He manages his own medications at home by using the bottles, does not use a pillbox. Reports receiving a flu shot this year, but most recent one I see in influenza tab in [facility] is from May 2022--he reports having the documentation in his wallet. Tobacco use within the last 30 days: No Allergies: FACILITY ALLERGY/ADR -------- [facility] GABE REPT EFF [id number] [place] [facility] KENALONE INJECTION (40 MG/ML) [facility] [place]IC[place] [facility] ZOLPIDEM [facility] NO KNOWN ALLERGIES === Source of Info: [facility] === Drug Last Refills Qty Filled Remaining ---- --- ------ --------- ACETAMINOPHEN 500MG TAB 400 06/03/2023 (3) TWO BID FOR LOW BACK AND LEFT HIP PAIN Indication: FOR PAIN Rare use ALENDRONATE 10MG TAB 90 08/30/2023 (1) ONE QDAY TO PREVENT BONE LOSS Indication: TO PREVENT BONE LOSS CHOLECALCIF 25MCG (D3-1,000UNIT) TAB 100 09/18/2023 (1) ONE QDAY FOR VITAMIN D Indication: FOR VITAMIN D CYANOCOBALAMIN 1000MCG TAB 100 08/30/2023 (2) ONE QDAY FOR B12 SUPPLEMENT Indication: FOR B12 SUPPLEMENT FOLIC ACID 1MG TAB 90 08/30/2023 (1) ONE QDAY FOR FOLIC ACID SUPPLEMENT Indication: FOR FOLIC ACID SUPPLEMENT HYDROCHLOROTHIAZIDE 25MG TAB 90 08/30/2023 (1) ONE QDAY FOR BLOOD PRESSURE Indication: FOR BLOOD PRESSURE LIDOCAINE 5% PATCH 30 06/06/2023 (3) APPLY 1 PATCH TOPICALLY QDAY PRN FOR UP TO 12 HOURS FOR PAIN IN Indication: FOR UP TO 12 HOURS FOR PAIN not using MAGNESIUM OXIDE 420MG TAB 90 08/30/2023 (1) ONE QHS FOR MAGNESIUM SUPPLEMENT NALTREXONE (EQV-REVIA) 50MG TAB 30 09/02/2023 (8) ONE QDAY FOR SOBRIETY Indication: FOR SOBRIETY OMEPRAZOLE 20MG EC CAP 90 08/30/2023 (1) ONE QDAY FOR STOMACH ACID - AT LEAST 30 MIN PRIOR TO MEAL ON EMPTY STOMACH Indication: FOR STOMACH ACID PRAZOSIN HCL 1MG CAP 90 10/12/2023 (1) ONE QHS --MAY INCREASE DOSE BY ONE EVERY 3 DAYS UP TO 5 NIGHTLY TOLERATED taking 1 mg dose THIAMINE 100MG TAB 100 08/30/2023 (1) ONE QDAY FOR SUPPLEMENT VORTIOXETINE 20MG TAB 90 08/22/2023 (3) ONE QDAY Reports he is still taking a half tablet [facility], perhaps a 20 mg dose based on historical fills. He is unable to confirm the dose. -------The following prescriptions have and is not taking Reports due for colonoscopy in October. BISACODYL 5MG EC TAB 2 07/12/2023 (0) TWO ONCE FOR COLON PREP Indication: FOR COLON PREP : 08/10/2023 COLON ELECTROLYTE LAVAGE PWD FOR SOLN 1 07/12/2023 (0) ONE CONTAINER DIRECTED FOR COLON PREP Indication: FOR COLON PREP : 08/10/2023 ----The following are Non-VA medications he is no longer taking HYDROXYCHLOROQUINE SULFATE 200MG [id number] EVERY MORNING Medications given in clinic: None Recently discontinued prescriptions not taking: eszopiclone, lamotrigine Denies other Rx, Herbal, OTC, Supplement, Non-VA meds Consider the following inpatient medications when reviewing list above to complete medication reconciliation: Active Inpatient Medications (including Supplies): Pending Inpatient Medications Status 1) INFLUENZA INJ 1 SYRINGE IM ONCE PENDING /ubaldo/ Josemanuel Montano PharmD, HERNESTOP Clinical Pharmacist Practitioner--Inpt Psychiatry Signed: 09/22/2023 15:48 Receipt Acknowledged By: 09/23/2023 10:17 /ubaldo/ SCARLETT KHOURY MD 09/22/2023 ADDENDUM STATUS: COMPLETED Flu shot was 02/07/23, inpt flu shot order dc'd. Does not use outpt prn lidocaine patch Rx. Inpt lidocaine prn order dc'd ([facility] does not allow prn patch orders). Can be scheduled if pt desires. /samantha Montano PharmD, HERNESTOP Clinical Pharmacist Practitioner--Inpt Psychiatry Signed: 09/22/2023 15:57 JOSEMANUEL MONTANO [facility]
--- OUTSIDE RECORDS SUMMARY | 2023-09-23 17:22 | XMS_ITS ---
HOSPITALIZATION [facility] Encounter Summary Created on: September 23, 2023 SUSY CALVIN SALDAÑA : 1955 Sex: Male Author Name [employer] Organization [employer] Address [address] [place] [address] Support Name Relationship Address Phone MARIBELL VITO Next of Kin [address] [place] [address] VITO REYNA Emergency Contact [address] [place] [address] Insurance Providers: All historical and [...] Hurt's Name Patient's Relationship to Policy Hurt [facility] (WNR) MEDICARE ADVANTAGE [facility] (WNR) May 16, 2023 [id number] JEAN JAIN IN PATIENT Selected Encounter This section includes the information on record at [place] for the Encounter. Date/Time Encounter Type Encounter Description Reason Pro vider Source September 22, 2023 03:07 PM Inpatient Visit HOSPITALIZATION [facility] Zeke Encounter Template Text not used by [place] [...] 27, 2023 10:30 AM AMBULATORY - PSYCHIATRY [facility] Nov 10, 2023 07:15 AM AMBULATORY - MEDICINE [facility] Nov 10, 2023 07:30 AM AMBULATORY - MEDICINE [facility] Jan 02, 2024 09:30 AM AMBULATORY MEDICINE [facility] Jan 02, 2024 10:30 AM AMBULATORY MEDICINE [facility] Active, Pending, and Scheduled Orders This [...] comes from all [facility]. Test Date/Time Test Type Test Details Facility Name Sep 08, 2023 12:00 AM Laboratory - Chemistry Order COMPREHENSIVE METABOLIC PANEL+MG PLASMA SP ONCE [facility] Sep 08, 2023 12:00 AM Laboratory - Chemistry Order CBC BLOOD SP ONCE [facility] September 22, 2023 01:58 PM Consult Order [facility] RESIDENTIAL REHABILITATION TREATMENT [facility] Cons Purification Operator Helper's Choice [facility] September 23, 2023 12:52 PM Laboratory - Microbiology Order GRAM STAIN SPUTUM WC ONCE [facility] September 23, 2023 12:52 PM Laboratory - Microbiology Order CULTURE & SUSCEPTIBILITY SPUTUM WC [facility] September 23, 2023 01:00 PM Laboratory - Microbiology Order CULTURE & SUSCEPTIBILITY BLOOD WC [facility] September 23, 2023 01:20 PM Laboratory - Microbiology Order CULTURE & SUSCEPTIBILITY BLOOD [facility] September 24, 2023 05:30 AM Laboratory - Chemistry Order CBC & DIFF BLOOD LC ONCE [facility] September 24, 2023 05:30 AM Laboratory - Chemistry Order D-DIMER PLASMA LC ONCE [facility] September 24, 2023 05:30 AM Laboratory - Chemistry Order COMPREHENSIVE METABOLIC PANEL+MG PLASMA LC [facility] September 24, 2023 05:30 AM Laboratory - Chemistry Order LACTIC ACID PLASMA UNITS WC ONCE [facility] Lab Results: [...] 02:49 PM Reporting Lab: [facility] [id number] Performing Lab: [facility] [id number] EXTRA MINT TUBE RECEIVED September 23, 2023 04:15 AM [facility] PROCALCITONIN Specimen Type: PLASMA No comment entered. Ordering Provider: WANDA BOWSER Report Released Date/Time: September 23, 2023 04:10 AM Reporting Lab: [facility] [id number] Performing Lab: [facility] [id number] PROCALCITONIN 0.11 H <0.09 September 23, 2023 04:15 AM [facility] LIPASE Specimen Type: PLASMA No comment entered. Ordering Provider: REVA ROSS Report Released Date/Time: September 23, 2023 12:52 PM Reporting Lab: [facility] [id number] Performing Lab: [facility] [address] LIPASE 12 <60 September 23, 2023 04:15 AM [facility] C-REACTIVE PROTEIN Specimen Type: PLASMA No comment entered. Ordering Provider: WANDA BOWSER Report Released Date/Time: September 23, 2023 04:10 AM Reporting Lab: [facility] [id number] Performing Lab: [facility] [address] C-REACTIVE PROTEIN 81.34 H <5.00 September 23, 2023 04:15 AM [facility] CBC Specimen Type: BLOOD No comment entered. Ordering Provider: WANDA BOWSER Report Released Date/Time: September 23, 2023 04:10 AM Reporting Lab: [facility] [phone] Performing Lab: [facility] [address] WBC 12.24 H 4.0-11.0 RBC 3.93 L [...] 04:10 AM Reporting Lab: [facility] [phone] Performing Lab: [facility] [address] CREATININE 1.1 0.7-1.2 UREA NITROGEN 16 8-26 [...] 10:59 AM Reporting Lab: [facility] [address] Performing Lab: [facility] [address] BARBITURATES Negative Negative AMPHETAMINES Negative Negative COCAINE [...] 10:59 AM Reporting Lab: [facility] [address] Performing Lab: [facility] [address] URINE COLOR YELLOW SPECIFIC GRAVITY 1.032 1.003-1.03 [...] [facility] COVID-19 AND FLU/RSV DIAG PANEL(CE[employer] T[employer] DisposalID) Specimen Typ e: NASOPHARYNGEAL Comment: kooaba GeneXpert (618) Ordering Provider: RADHA DODD Report Released Date/Time: September 22, 2023 01:26 PM Reporting Lab: [facility] [phone] Performing Lab: [facility] [address] COVID-19 (CEPHEID) Not Detected Not Detected INFLUENZA A (PCR) Not Detected Not Detected INFLUENZA B (PCR) Not Detected Not Detected RSV (PCR) Not Detected Not Detected September 22, 2023 10:55 AM [facility] EXTRA BLUE TUBE Specimen Type: PLASMA No comment entered. Ordering Provider: RADHA DODD Report Released Date/Time: September 22, 2023 11:04 AM Reporting Lab: [facility] [phone] Performing Lab: [facility] [address] EXTRA BLUE TUBE RECEIVED September 22, 2023 10:55 AM [facility] LIPASE Specimen Type: PLASMA No comment entered. Ordering Provider: RADHA DODD Report Released Date/Time: September 22, 2023 10:59 AM Reporting Lab: [facility] [address] Performing Lab: [facility] [address] LIPASE 27 <60 September 22, 2023 10:55 AM [facility] ETHANOL Specimen Type: PLASMA No comment entered. Ordering Provider: RADHA DODD Report Released Date/Time: September 22, 2023 10:59 AM Reporting Lab: [facility] [address] Performing Lab: [facility] [address] ETHANOL Negative NEGATIVE September 22, 2023 10:55 AM [facility] EXTRA GOLD GEL TUBE Specimen Type: SERUM No comment entered. Ordering Provider: RADHA DODD Report Released Date/Time: September 22, 2023 11:04 AM Reporting Lab: [facility] [address] Performing Lab: [facility] [address] EXTRA GOLD GEL TUBE RECEIVED September 22, 2023 10:55 AM [facility] COMPREHENSIVE METABOLIC PANEL+MG Specimen Type: PLASMA No comment entered. Ordering Provider: RADHA DODD Report Released Date/Time: September 22, 2023 10:59 AM Reporting Lab: [facility] [id number] Performing Lab: [facility] [address] CREATININE 1.0 0.7-1.2 UREA NITROGEN 16 8-26 [...] 10:59 AM Reporting Lab: [facility] [address] Performing Lab: [facility] [address] WBC 16.53 H 4.0-11.0 RBC 4.55 L [...] 2023 03:44 PM 97.5 110 105/75 97 [facility] September 22, 2023 03:39 PM 240.8 34 [facility] September 22, 2023 11:11 AM 98.5 105 136/94 18 4 [facility] Social History: Smoking Status (Most current) [...] Nigel ity Jun 02, 2023 11:00 AM [place]-TOBACCO QUIT 5 TO < 15 YRS [facility] Tobacco Use History [...] this document. The data comes from all [facility]. Date Advance Directives Provider Source May 11, [...] 01:38 PM CHEST 1 VIEW: CALVIN JAIN [id number] -1955 M Exm Date: SEPTEMBER 23, 2023@13:38 Req Phys: REVA ROSS Loc: 09-23-2023@14:51 Img Loc: MAIN X-RAY Service: PRIMARY [place] [address] (Case [id number] COMPLETE) CHEST 1 VIEW (RAD Detailed) CPT:74413 Proc Modifiers : PORTABLE EXAM Reason for Study: see below Clinical History: [place] IS NOT under investigation for COVID-19 or is COVID-19 negative SIRS criteria, no overt sx, please r/o any opacities Responsible provider name and phone number to notify for critical findings if other than user placing the order and pager listed below: User placing orders pager: [phone] LAST CREATININE 1.1 (09/23/23) Report Status: Verified Date Reported: SEPTEMBER 23, 2023 Date Verified: SEPTEMBER 23, 2023 Shredding Specialist E-Sig:/ES/JANETH OROZCO DO Report: EXAMINATION: CHEST 1 VIEW Reason for Study: see below IS NOT under investigation for COVID-19 or is COVID-19 negative SIRS criteria, no overt sx, please r/o any opacities Responsible provider name and phone number to notify for critical findings if other than user placing the order and pager listed below: User placing orders pager: [phone] LAST CREATININE 1.1 (09/23/23) see below TECHNIQUE: [...] JANETH OROZCO DO, RADIOLOGIST (Natalie) /JANETH RASHEED [facility] Encounter Notes: All associated encounter notes This section contains the clinical notes associated to the Encounter. Date/Time Encounter Note(s) Provider Source September 23, 2023 02:55 PM NURSING NOTE: LOCAL TITLE: TELEMETRY AND OXIMETRY CENTRALIZED NOTE STANDARD TITLE: NURSING NOTE DATE OF NOTE: SEPTEMBER 23, 2023@14:55 ENTRY DATE: SEPTEMBER 23, 2023@16:48:44 AUTHOR: GABRIELLE GRAFF EXP COSIGNER: URGENCY: STATUS: COMPLETED Telemetry (Cardiac) Monitor: OPAL Shift Telemetry initiation date/time: September@04:10. Telemetry indication: SYNCOPE EVAL Cardiac History: HTN Cardiac rhythm interpretation: SINUS RHYTHM HR:88 IL Int:0.16 QRS Int:0.11 QT Int:0.35 QTc Int:0.424 Telemetry leads monitored this shift: II and V lead Alarm parameters verified this shift /ubaldo/ ZAIRE SANTANA Global Transportation Manager Signed: 09/23/2023 16:49 GABRIELLE GRAFF [facility] September 23, 2023 02:29 PM PASTORAL CARE NOTE: LOCAL TITLE: FIRST BREAKER FEEDER-ANOINTING NOTE STANDARD TITLE: PASTORAL CARE NOTE DATE OF NOTE: SEPTEMBER 23, 2023@14:29 ENTRY DATE: SEPTEMBER 23, 2023@14:29:59 AUTHOR: ANDREZ RODGERS EXP COSIGNER: URGENCY: STATUS: COMPLETED Good visit with pt, who received the sacrament of anoint[facility] of the sick [facility] /es/ ANDREZ RODGERS Father Signed: 09/23/2023 14:30 ANDREZ RODGERS [facility] September 23, 2023 07:37 AM NURSING NOTE: LOCAL TITLE: TELEMETRY AND OXIMETRY CENTRALIZED NOTE STANDARD TITLE: NURSING NOTE DATE OF NOTE: SEPTEMBER 23, 2023@07:37 ENTRY DATE: SEPTEMBER 23, 2023@09:03:17 AUTHOR: GABRIELLE GRAFF EXP COSIGNER: URGENCY: STATUS: COMPLETED Telemetry (Cardiac) Monitor: DAY Shift Telemetry initiation date/time: September@04:10. Telemetry indication: SYNCOPE EVAL Cardiac History: HTN Cardiac rhythm interpretation: TACHY ARRHYTHMIA HR:136 IL Int:0.15 QRS Int:0.09 QT Int:0.35 QTc Int:0.528 Telemetry leads monitored this shift: II and V lead Alarm parameters verified this shift /ubaldo/ ZAIRE SANTANA Global Transportation Manager Signed: 09/23/2023 09:05 GABRIELLE GRAFF [facility] September 23, 2023 06:15 AM H & P NOTE: LOCAL TITLE: H&P HISTORY & PHYSICAL - MEDICINE STANDARD TITLE: H & P NOTE DATE OF NOTE: SEPTEMBER 23, 2023@06:15 ENTRY DATE: SEPTEMBER 23, 2023@06:16:05 AUTHOR: TANIA BOWSER COSIGNER: URGENCY: STATUS: COMPLETED H&P HISTORY & PHYSICAL - MEDICINE Has ADDENDA MEDICINE HISTORY & PHYSICAL Chief Complaint: syncope History of Present Illness (HPI) - 68 years old MALE with PMH significant for PTSD, KAREL, HTN, GERD and osteoporosis who was admitted to to safely detox and figure out a good dispo plan prior to rehab in [facility] who was transferred to [facility] with orthostasis and syncope. Pt hadn't really been eating or drinking much for the 5-6 days prior to presentation. he had been have nausea and vomiting and increasing heartburn as well. He was drinking about a 750-1L of vodka or captain shaina a day and stopped 5 days ago because wasn't feeling well. He would like ot get off alcohol entirely. He has had shakes before but no seizures or serious withdrawal. He continues to have severe heartburn now. Burning going up the chest doesn't radiate anywhere and is made slightly worse with food. No real trouble breathing but does get fatigued with walking. No cough. no belly pain. no change in bowel movements. Tonight was getting up to pee and just felt really lightheaded and fell down on his butt while trying to urinate. He did urinate on himself. He thinks he did pass out but didn't hit his head. He denies any chest pain other than the heart burn with this. He has been trying to drink more on but still feels dehydrated. Never had an event like this. Past Medical History: Active problems - Computerized Problem List is the source for the followin. Osteoarthritis of knee (SNOMED CT 644911811) 2. Primary Obesity 3. Screening for Ischemic Heart Disease 4. Primary insomnia 5. Low back pain (SNOMED CT 953238414) 6. Sacroiliitis 7. Tobacco Use Disorder, Continuous - Quit cigarettes 2012 8. Sensorineural Hearing Loss, Bilateral 9. Pseudogout - Left knee 10. Hyperlipidemia (SNOMED CT 97600859) 11. Obstructive Sleep Apnea (Adult) (Pediatric) - 07/06/12 Mild: PRDI 16.4: on CPAP. 12. Depression * 13. 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 Compression fracture of thoracic spine (SNOMED CT 053333415) 16. PAIN, NECK/CERVICALGIA 17. Posttraumatic stress disorder - has service dog 18. Knee pain 19. OEF/OIF EXPOSURE TO BURN PIT SMOKE 20. OEF/OIF EXPOSURE TO SANDSTORMS/DUSTSTORMS 21. Dyspnea on exertion (SNOMED CT 65564347) 22. Dyspnea on exertion 23. Pain radiating to right side of chest 24. Hypertension 25. Inflammatory polyarthritis 26. High risk drug monitoring status 27. Ethanol abuse 28. Exposure to potentially hazardous substance ([facility] [id number]) - Entered through [facility] Documentation Initiative Social History: 1. Tobacco - former 2. Alcohol - see HPI, heavy alcohol use 3. Illicit Drug Use - denies 4. Living Situation - lives alone trying to maybe stay with his sister until he can get into rehab Allergies: PENICILLIN (Nov 19, 2009) ZOLPIDEM (Dec 26, 2014) KENALONE INJECTION (40 MG/ML) (Oct 26, 2018) Review of System: General: No weight loss, fever, chills,+ for fatigue HEENT: No visual changes, No hearing loss, no congestion, runny nose. Cardiovascular: No chest pain, chest pressure, no palpitations. Lungs: No shortness of breath, no cough. GI: No anorexia,vomiting or diarrhea. No abdominal pain. + for heartburn : No Burning on urination. No hematuria, No dysuria. Neuro: No headache, ataxia, numbness or tingling in the extremities. MSK: No muscle, back pain, joint pain or stiffness. Hem: No anemia, bleeding or bruising. Lymphatics: No enlarged nodes. Psych: No active depression or anxiety. Endocrine: No cold or heat intolerance. No polyuria or polydipsia. Allergies: No hives, eczema or rhinitis. Skin: No rash or itching. Physical Exam: Temp: 97.5 F [36.4 C] (09/23/2023 05:02) Pulse:103 (09/23/2023 05:02) BP: 144/85 (09/23/2023 05:02) Resp: 18 (09/23/2023 05:02) Weight: 242.4 lb [109.95 kg] (09/23/2023 05:02) Pain: 0 (09/23/2023 02:48) O2 Sat: 90% (09/23/2023 05:02) BMI: 34.4 orthostatic to the 60s systolic when sitting. and heart rate went into the 110s- 120s General: Awake, Alert, Oriented X3, No apparent distress HEENT: Pupils equally reactive to light, extra ocular movement intact, no scleral icterus, moist mucus membranes, neck supple, no jugular venous distention Cardio: S1, S2, regular rate, regular rhythm, no murmur/rubs/gallops Lungs: Clear to auscultation bilaterally, no crackles, no wheezing Abd: Soft, non-tender, non-distended, +bowel sounds, no rebound, no guarding Extrem: No clubbing/cyanosis/edema, 2+ bilateral pulses Neuro: Cranial Nerves II-XII intact, 5/5 strength in all 4 extremities Labs: - INR: INR - NONE FOUND - Complete Blood Count White count: WBC 12.24 H (09/23/23) Hemoglobin: HGB 13.9 (09/23/23) Hematocrit: HCT 39.8 L (09/23/23) Platelets: PLT 236 (09/23/23) - Complete Metabolic Panel SODIUM 133 L (09/23/23) POTASSIUM 3.8 (09/23/23) CHLORIDE 95 L (09/23/23) CO2 20 L (09/23/23) UREA NITROGEN 16 (09/23/23) CREATININE 1.1 (09/23/23) GLUCOSE 152 H (09/23/23) CALCIUM 9.7 (09/23/23) MAGNESIUM 1.8 (09/23/23) EGFR (12/17) 03/31/21 @ 0954 85 CREATININE EGFR (CKD-EPI) 09/23/23 @ 0415 74 AST/SGOT 32 (09/23/23) ALT/SGPT 42 (09/23/23) ALK PHOSPHATASE 123 (09/23/23) ALBUMIN 3.9 (09/23/23) BILIRUBIN, TOTAL 0.7 (09/23/23) Urinalysis: URINE COLOR YELLOW (09/22/23) APPEARANCE CLEAR (09/22/23) SPECIFIC GRAVITY 1.032 (09/22/23) URINE PH 5.5 (09/22/23) URINE BILIRUBIN 1+ (09/22/23) URINE KETONES 4+ (09/22/23) URINE GLUCOSE NEGATIVE (09/22/23) URINE PROTEIN 50 (09/22/23) URINE HEME NEGATIVE (09/22/23) LEUKOCYTE ESTERASE NEGATIVE (09/22/23) URINE NITRITE NEGATIVE (09/22/23) URINE BACTERIA NONE SEEN (09/22/23) URINE WBC/HPF 1 (09/22/23) URINE RBC/HPF 1 (09/22/23) Active and Recently Inpatient Medications (including Supplies): Active Inpatient Medications Status 1) ACETAMINOPHEN (INPT) TAB 650MG PO Q4H PRN For Pain, ACTIVE For Headache MAX DOSE of acetaminophen is 4000mg in 24 hours. 2) ALENDRONATE TAB 10MG PO QDAY ACTIVE 3) ALOH/MGOH/SIMETH XTRA STRENGTH (INPT) 30 ML PO QID ACTIVE PRN FOR HEARTBURN 4) CALCIUM CARBONATE TAB 650MG PO QID PRN For ACTIVE Indigestion/Heartburn 5) CHOLECALCIFEROL TAB 25MCG PO QDAY ACTIVE 6) CYANOCOBALAMIN TAB 1000MCG PO QDAY ACTIVE 7) FOLIC ACID TAB 1MG PO QDAY ACTIVE 8) MAGNESIUM OXIDE TAB 420MG PO QHS ACTIVE 9) NALTREXONE TAB 50MG PO QDAY ACTIVE 10) OMEPRAZOLE CAP,EC 40MG PO DBID Take at least 30 min ACTIVE prior to meal on empty stomach dose increase 09/23/23 11) ONDANSETRON TAB,ORAL DISINTEGRATING 4MG SL Q6H PRN ACTIVE for nausea 12) PRAZOSIN CAP,ORAL 1MG PO QHS ACTIVE 13) SALINE FLUSH INJ 10ML IV Q8H AFTER EACH USE, MINIMUM ACTIVE OF EVERY SHIFT. 14) SODIUM CHLORIDE 0.9% INJ in 0.9% NACL 1000 ML 250 ACTIVE ml/hr@0 iv limit = 1 liter over 4 hours IV 15) THIAMINE TAB 100MG PO QDAY ACTIVE 16) VORTIOXETINE TAB,ORAL 20MG PO QDAY ACTIVE Inactive Inpatient Medications Status 1) HYDROCHLOROTHIAZIDE TAB 25MG PO QDAY DISCONTINUED 2) OMEPRAZOLE CAP,EC 20MG PO DAY Take at least 30 min DISCONTINUED prior to meal on empty stomach (EDIT) 18 Total Medications No Active Remote Medications for this patient Imaging no new imaging Assessment/Plan: 68 years old MALE with PMH significant for PTSD, KAREL, HTN, GERD and osteoporosis who was admitted to to safely detox, but was transferred to medicine floor for syncope due to hypovolemia. #Syncope #Hypovomia Given history syncope very consistent with orthostatic hypotension due to not eating or drinking. Will put on tele to assess for arrythmia but likely doesn't need a zio patch on discharge. Also no indication for echo at this time. IVF and encourage PO intake. No evidence given symptoms. slight white count elevation (was 16 on admission) I suspect related to hemoconcentration down to 12 today without intervention may also be reactvie to gastritis. 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 #Gastritis #ETOH dependence increase PPI to 40 mg BID and added maalox prn. Plan for [facility] rehab. Reach out to ars/mental health to see if this has already been arranged or not. May need ARS consult. No evidence of seizure or that this episode was withdrawal related. now would likely be out of withdrawal window as well. 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 #Osteoporosis: cont alendronate and vitamin d. Fluids/Electrolytes/Nutrition (FEN):regular IVF Deep Vein Thrombosis (DVT) Prophylaxis: ambulate Code Status: full Disposition:anticipate can go home in 1-2 days when safe dispo plan for rehab established /es/ TANIA BOWSER MD STAFF PHYSICIAN - HOSPITALIST MEDICINE Signed: 09/23/2023 06:34 09/23/2023 ADDENDUM STATUS: COMPLETED Pt seen this AM. C/o thirst and improved heart burn but not completely gone. Urine very dark colored. He has not tried getting out of bed yet. Confirmed that he never had LOC, fell when he was trying to go bathroom. Although leukocytosis 2/2 dehydration +- gastritis, CRP is elevated, meets SIRS criteria (2/4), ordered lactic acid, BCx x2, CXR, sputum stain/cx, lipase for completeness as pt denies any systemic sx except mentioned above. BP have improved, still tachy, s/p 1L IVF. - Give add'l 1L IVF and then obtain orthostatics - Cont tele for now - GI cocktail instead of maalox Dispo: Plan to d/c to Sister;s home once medically stable 1-2 days, then [facility] will do a screen call on Tuesday, 09/26 at 10:30pm. No need to go back to 1L per psych team. Pt will call his sister to update. /ubaldo/ REVA ROSS MD HOSPITALIST Signed: 09/23/2023 13:25 TANIA BOWSER [facility] September 23, 2023 05:08 AM NURSING ADMISSION EVALUATION NOTE: LOCAL TITLE: [facility] ACUTE INPATIENT NSG ADMISSION SCREEN STANDARD TITLE: NURSING ADMISSION EVALUATION NOTE DATE OF NOTE: SEPTEMBER 23, 2023@05:08 ENTRY DATE: SEPTEMBER 23, 2023@05:08:23 AUTHOR: JAJA GOMEZ COSIGNER: URGENCY: STATUS: COMPLETED === ALLERGY/ADVERSE DRUG REACTION (ADR) REVIEW (MRT5) === FACILITY ALLERGY/ADR -------- CLNCL/HLTH GABE REPT EFF [id number] PENICILLINS [facility] KENALONE INJECTION (40 MG/ML) [facility] PENICILLIN [facility] ZOLPIDEM [facility] NO KNOWN ALLERGIES Allergy/Adverse Drug Reaction Review to be conducted by: Nurse: Results of Allergy/ADR Review: Allergy/Adverse Drug Reaction list confirmed. == MEDICATION REVIEW (MRR1) == Did patient bring medication(s) from home? No Medication Review to be conducted by Provider == GENERAL INFORMATION == Admission information given by: Patient Is there a legal guardian/conservator? No Preferred language for discussing healthcare: Omani Preferred mode of communication: Verbal Items at Bedside: Other: reno; black short; t-shirt; underwear; samsung blk phone; blk wallet. === INFECTIOUS DISEASE RISK SCREEN === Travel Screen: Have you traveled within the [place] within the last 21 days? No Have you traveled outside the [place] within the last 21 days? No Within the last 14 days, have you had: No known exposure Other Exposure to Infectious Disease: No known exposure Patient reported the following symptoms: Nausea Vomiting Weakness History of Multiple Drug Resistant Organism (MDRO): No === NUTRITION SCREENING === Malnutrition Screening Weight (Previous 6 months): Measurement DT WEIGHT LB(KG)[BMI] 09/23/2023 05:02 242.4(109.95)[34*] 09/22/2023 15:39 240.8(109.23)[34*] 07/07/2023 10:56 243.5(110.45)[35*] 06/02/2023 10:48 255(115.67)[36*] Lost weight recently without trying: No (0 points) Have you been eating poorly because of decreased appetite? Yes (1 point) Total Score: 1 Other Nutrition Screening Questions: The patient does not report any concerns with their teeth that would make it difficult to eat. The patient does not report overeating to the point of feeling sick or making themselves vomit. The patient denies gaining 10 lbs.(4.5 kgs) or more in the past 3 months without trying. The patient denies having any food allergies, intolerance, special dietary needs, or ethnic, cultural or christian preferences that would affect their dietary needs. Food Insecurity Screening Within the past 12 months, you worried whether your food would run out before you got money to buy more. Never true Within the past 12 months, the food you bought just did not last you and you did not have the money to get more. Never true Food Insecurity Disposition: == RISK SCREENINGS == Alcohol Screen: Screen to be completed by: Nurse: SCREEN FOR ALCOHOL (AUDIT-C) An alcohol screening test (AUDIT-C) was positive (score=9). 1. How often did you have a drink containing alcohol in the past year? Consider a drink to be a 12 ounce can or bottle of regular beer, 8 ounces of malt liquor, a 5 ounce glass of table wine, or a 1.5 ounce shot of liquor (like scotch, gin, or vodka). Four or more times a week 2. How many drinks containing alcohol did you have on a typical day when you were drinking in the past year? Five or six drinks 3. How often did you have six or more drinks on one occasion in the past year? Weekly Complete alcohol education/intervention: Now by nurse: Patient's AUDIT-C score was greater than or equal to 5; brief alcohol intervention is indicated. Shared concern that the patient may be drinking at unhealthy levels known to increase his/her risk of alcohol related health problems. Specifically the following were reviewed: Anxiety The patient was advised/informed to drink within safe limits, which are no more than 2 drinks per day on average and no more than 4 drinks on any one day AND no more than 14 drinks per week. Will discuss again at next visit. Service(s) offered for Alcohol Misuse: Other services offered: Comment: Waiting to go into RRTP program *Does the patient consume alcohol? Yes: Alcohol Use History: Amount used/Frequency: 5 to 7 Date/Time of last use: September Do you have a history of alcohol withdrawal symptoms? Yes Do you have a history of Delirium Tremens (DTs)? No Do you have a history of seizures related to withdrawal? No Tobacco Use: Former - tobacco user Do you currently or have you ever used alternative nicotine products? No Substance Use Assessment: *Do you use any recreational drugs or narcotics (prescription or non-prescription)? No === RISK OF WANDERING === The patient does not have a history of wandering. The patient does not have a history of elopement. The patient is not expressing a desire to leave. = SUICIDE SCREEN = Result of C-SSRS screener done was NEGATIVE. C-SSRS Screen is Negative == EXPOSURE TO VIOLENCE AND ABUSE PRE-SCREEN == Are you worried for your safety, that you will be hurt or harmed? No Has anyone tried to force you to sign papers or use your money against your will? No == POST TRAUMATIC STRESS DISORDER CARE CONSIDERATIONS == To minimize a startle response, what is your preference on how best to awaken you? No preference === REPRODUCTIVE & SEXUAL HEALTH === Do you have any sexual or reproductive concerns you would like your healthcare team to be aware of? No == ADVANCE DIRECTIVE == Notification of Rights Related to Advance Directives: *The patient wishes to receive information about or assistance with Advance Care Planning and/or Advance Directive: No = SPIRITUALITY = Are there christian practices or spiritual concerns you want the php programmer, your provider, and other health care team members to know? No == ANTICIPATED DISCHARGE NEEDS == Where do you live? Housing owned/rented by : Method of transportation upon discharge: Unknown: Consult/notification placed to Social Work. Are there any anticipated barriers to discharge? No = EDUCATIONAL NEEDS/LEARNING STYLE = Barriers to learning: None evident Patient learning style preferences: None == VISITOR INFORMATION == Will you have a primary support person while in the hospital? No Patient's Visitor Restriction preferences: No Privacy Review: No passcode provided due to opt out ==== DUTTA FALL SCALE & TIPS PROGRAM ==== Dutta Fall Scale: The Dutta Fall scale was performed and score was 70. This is indicative of high risk for falls. History of falling: immediate or within 3 months? Yes Secondary diagnosis: No Ambulatory aid: Crutches/cane(s)/walker Intravenous therapy/Heparin lock: Yes Gait/Transferring: Weakness Mental Status: Oriented to own ability/knows own limitations /es/ JAJA GOMEZ RN REGISTERED NURSE Signed: 09/23/2023 07:11 JAJA GOMEZ [facility] September 23, 2023 04:59 AM NURSING TRANSFER SUMMARIZATION NOTE: LOCAL TITLE: [facility] NURSING TRANSFER SUMMARY STANDARD TITLE: NURSING TRANSFER SUMMARIZATION NOTE DATE OF NOTE: SEPTEMBER 23, 2023@04:59 ENTRY DATE: SEPTEMBER 23, 2023@05:00:04 AUTHOR: AMAN MAGAÑA EXP COSIGNER: URGENCY: STATUS: COMPLETED NURSING TRANSFER SUMMARY Sending RN Age: 68 Height: 70.5 in [179.1 cm] (06/02/2023 10:48) Admit Weight: 240.8 Todays Weight: 240.8 Code Status: Full Code MRSA OR VRE: Admission Date: 09/23/23 05:00 Transfer Date: September To [place]/Unit: 3L Diagnosis: Orthostatic Low Blood Pressure, Chest pain non Radiating History: Patient was found laying on the floor with urine during 15 mins rounding by staff. Patient verbalized that he was trying to go to the toilet when he felt dizzy and fell on his bottom. Patient is alert and oriented and denied hitting his head. BP 84/42, HR 80/min while on the floor, assited patient, cleansed and changed with new pair of pajama. Sitting on the bed BP 68/45, HR 114/min, notified SENIOR HUMAN RESOURCES REPRESENTATIVE, seen and examined by SENIOR HUMAN RESOURCES REPRESENTATIVE BP 111/79, HR 118/min. Seen by POD and MOD with order to transfer to Medicine Unit for IV infusion and observation. Vital Signs: Temperature: 97.5 F [36.4 C] (09/23/2023 05:02) Pulse: 103 (09/23/2023 05:02) Respirations: 18 (09/23/2023 05:02) Blood Pressure: 144/85 (09/23/2023 05:02) Height: 70.5 in [179.1 cm] (06/02/2023 10:48) LAST WEIGHT IN LBS IN PAST 6 MONTHS: 242.4 (SEPTEMBER 23, 2023@05:02) See ICCA for vital signs. Allergies: PENICILLIN (Nov 19, 2009) ZOLPIDEM (Dec 26, 2014) KENALONE INJECTION (40 MG/ML) (Oct 26, 2018) Activities of Daily Living Status: Independent with ADLs High Risk Falls Precautions: Yes WANDERING RISK Patient is high risk for wandering if one or more of the following pertain: No risk identified. SUICIDE RISK: Was the patient identified as being at imminent or hightened risk for suicide during this [facility] based on suicide risk assessment: No Continue to assess patient for suicide risk as deemed clinically appropriate and document in nursing shift note. Transfers with assistance and use of equipment, see below: Rollator Private room required (Behavior, Withdrawl, Wander, Special, etc.): No not needed Respiratory Status: NO SOB Cardiovascular/Pulses : Patient complaint of chest pain non radiating while with SENIOR HUMAN RESOURCES REPRESENTATIVE Neurological/Mentation/Safety Status: Alert and Oriented Special Needs: none known Additional tubes, lines, drains, etc: None /GI: Patient complaint of heartburn Date Jorge Inserted: Not applicable Current Diet: REGULAR Last BM: September JENNIFER SKIN RISK ASSESSMENT Sensory Perception:4 = No Impairment Moisture: 4 = Rarely Moist Activity: 4 = Walks Frequently Mobility: 3 = Slightly Limited Nutrition: 3 = Adequate Friction: 1 = Problem 19-23 No Risk Score: 19 CURRENT SKIN ASSESSMENT Skin Color: Usual for ethnicity Skin Temperature: Warm Skin Moisture: Dry Skin Turgor: Elastic (normal/immediate) SKIN PROBLEMS No wounds, pressure ulcers or other skin problems. INTERVENTIONS: The pressure injury interventions were not needed - patient/resident is not at risk. IV Access: Peripheral None None Does the patient have any transdermal patches present? No If patches present, please document location/s and type/s: none Last Pain Medication: none Any outstanding orders/medications? No All PRN Effectiveness cleared? Yes !!OUTSTANDING PRN EFFECTIVENESS MUST BE ADDRESSED PRIOR TO TRANSFER OF THE PATIENT!! ITP goals updated/resolved on transfer: Yes Are their personal belongings transferred with the patient? Yes apple $2.00, cell phone, wallet with ID, 2 tshirts, shorts and slippers Additional Comments or Issues: none Report called to: ASIA Regalado /ubaldo/ AMAN MAGAÑA RN BSN Signed: 09/23/2023 05:25 AMAN MAGAÑA [facility] September 23, 2023 04:56 AM NURSING NOTE: LOCAL TITLE: [facility] NSG IV INSERTION AND MAINTENANCE STANDARD TITLE: NURSING NOTE DATE OF NOTE: SEPTEMBER 23, 2023@04:56 ENTRY DATE: SEPTEMBER 23, 2023@04:57:11 AUTHOR: ANNE PATEL EXP COSIGNER: URGENCY: STATUS: COMPLETED Version 2.2 Charting in accordance with [place] APPROVED [place] STANDARD (NJAES) ACUTE INPATIENT/REHABILITATION NURSING ADMISSION SCREENING, ASSESSMENT, AND STANDARDS OF CARE ====== IV Line Insertion and Maintenance ====== ====== Peripheral IV ====== Present on admission: No Line #1: Insertion: Date/Time: September@04:00 Inserted by (name): Anne Patel RN Insertion Aid: Ultrasound guided Location: Left, Forearm Gauge: 22 Comment: 1.75 inch Assessment: Location: Left, Forearm Gauge: 22 Dressing Condition: Clean, dry, intact Transparent dressing Site Condition: No redness, swelling, pain Line Status: Patent/infusing Capped Flushed Positive blood return /es/ ANNE PATEL RN REGISTERED NURSE Signed: 09/23/2023 04:58 ANNE PATEL [facility] September 23, 2023 04:11 AM TEAM NOTE: LOCAL TITLE: RAPID RESPONSE TEAM NOTE STANDARD TITLE: TEAM NOTE DATE OF NOTE: SEPTEMBER 23, 2023@04:11 ENTRY DATE: SEPTEMBER 23, 2023@04:11:52 AUTHOR: DIXIE BAER EXP COSIGNER: URGENCY: STATUS: COMPLETED RAPID RESPONSE TEAM NOTE Has ADDENDA RAPID RESPONSE TEAM NOTE 68 y.o. MALE Admitting Dx:ETOH USE DISORDER Date: September Time Started: 0330AM Time Ended: 0400AM Total Time: 30minutes [place]: 1K Reason for SENIOR HUMAN RESOURCES REPRESENTATIVE call: Fall Exam: Pt had a syncopal episode on the way to the bathroom this morning. Found on the floor incontinent of urine. Pt reported he did get lightheaded and dizzy and fell on his butt and did not hit his head. He did say he did pass out. Neuro exam intact. Report midsternal chest pain, non radiating, non reproducible. States it is his acid reflux and feels it go up his chest. Pain is not worse with activity. Does report he gets SOB when with activity and this pain has been for the past 3 days. Denied feeling nauseous. Has not been eating or drinking much. Last alcoholic drink he stated was 5 days ago. Breathing is non labored on RA with sats 96%. Positive Orthostatics Lying 114/79 HR 105, Denies symptoms Standing 64/36 HR 114 lightheaded and dizzy. Temperature: 97.2 F [36.2 C] (09/23/2023 03:45) Respiratory Rate: 20 (09/23/2023 03:15) Oxygen Saturation: 96% (09/23/2023 03:45) Delivery of Oxygen: RA Interventions: - Transfer to acute care - IV, labs, fluids, tele Disposition:3L /ubaldo/ DIXIE BAER, RN,BSN,CCRN SENIOR HUMAN RESOURCES REPRESENTATIVE RN Signed: 09/23/2023 04:28 09/23/2023 ADDENDUM STATUS: COMPLETED Saw patient at bedside. Asking for something for his chest pain/ heart burn 12 lead EKG done. No acute ST changes. VSS. RN notified and maalox given. /ubaldo/ DIXIE BAER RN,BSN,CCRN SENIOR HUMAN RESOURCES REPRESENTATIVE RN Signed: 09/23/2023 06:44 DIXIE BAER [facility] September 23, 2023 03:25 AM FALL RISK ASSESSMENT NOTE: LOCAL TITLE: FALLS DOCUMENTATION NOTE STANDARD TITLE: FALL RISK ASSESSMENT NOTE DATE OF NOTE: SEPTEMBER 23, 2023@03:25 ENTRY DATE: SEPTEMBER 23, 2023@03:25:43 AUTHOR: AMAN MAGAÑA EXP COSIGNER: URGENCY: STATUS: COMPLETED Falls Documentation Inpatient SITUATION Date and time of fall: September@03:00 Location of fall: patient's bedroom Fall witnessed: No Describe events of fall: Patient was found lying on the floor on his back with urine on the floor during the 15 mins rounding of staff. Patient verbalized that he was trying to go to the toilet when he feels dizzy and fell on his bottom, he denied hitting his head. BP 84,42, HR 80/min while on the floor. Assisted patient, cleansed, changed with a new pair of stacie, patient is alert and oriented BP 68/45, HR 114 while sitting on the bed. BP 113/77, HR 98/min lying on the bed. Notified SENIOR HUMAN RESOURCES REPRESENTATIVE checked patient with BP 111/73, HR 118/min. Patient complaint of heartburn, given Calcium Carbonate, a pitcher of water encouraged patient to increased fluids intake. Provided with gaytan to use to call staff when he needs to go to the toilet. Seen and examnied by POD and MOD. Patient will transfer to Medicine unit. Provider notified: POD at: September BACKGROUND Interventions in place prior to fall: standard falls risk precautions, room closer to nurses station, use of transfer or mobility aides Assistive device(s) IN USE at time of fall: walker/ Rollator Footwear patient was wearing at time of fall: treaded socks ASSESSMENT Patient hit head: No ==== DUTTA FALL SCALE & TIPS PROGRAM ==== Dutta Fall Scale: The Dutta Fall scale was performed and score was 30. This is indicative of moderate risk for falls. History of falling: immediate or within 3 months? No Secondary diagnosis: Yes Ambulatory aid: Crutches/cane(s)/walker/ Rollator Intravenous therapy/Heparin lock: No Gait/Transferring: Normal/bed rest/immobile Mental Status: Oriented to own ability/knows own limitations Fall Tailoring Interventions for Patient Safety (TIPS) Fall TIPS initiated with patient: Yes Interventions: Walking Aids: Walker Provided with Gaytan to call staff Fall TIPS reviewed with patient: Yes Interventions: Communicate recent fall or risk of harm /es/ AMAN MAGAÑA RN BSN Signed: 09/23/2023 04:46 AMAN MAGAÑA [facility] September 22, 2023 04:56 PM MENTAL HEALTH NOTE: LOCAL TITLE: MH PROGRESS NOTE STANDARD TITLE: MENTAL HEALTH NOTE DATE OF NOTE: SEPTEMBER 22, 2023@16:56 ENTRY DATE: SEPTEMBER 22, 2023@16:56:14 AUTHOR: ZEB KATHLEEN EXP COSIGNER: URGENCY: STATUS: COMPLETED *Behavior: Quiet, Cooperative Self injurious behavior: No *Mood/Affect: Euthymic/Appropriate *Suicide Assessment: *Patient questioned about thoughts of suicide? Yes *Does patient currently have thoughts or feelings of suicide? No *Patient agrees to notify staff if urge to commit suicide arises? Yes *Medication: Took all prescribed medications. PRNs: *Pain Management: Denies pain *Patient Safety: Checks: 15 minutes Skin Assessment: Intact *For patients at high risk for pressure ulcer development: Pressure Ulcer Risk Screen (Jennifer Scale): JENNIFER SCALE - SENSORY PERCEPTION: Ability to respond meaningfully to pressure-related discomfort. 4 = NO IMPAIRMENT: Responds to verbal commands. Has no sensory deficit which would limit ability to feel or voice pain or discomfort. MOISTURE: Degree to which skin is exposed to moisture. 4 = RARELY MOIST: Skin is usually dry, linen only requires changing at routine intervals. ACTIVITY: Degree of physical activity. 4 = WALKS FREQUENTLY: Walks outside room at least twice a day and inside room at least once every two hours during waking hours. MOBILITY: Ability to change and control body position. 4 = NO LIMITATION: Makes major and frequent changes in position without assistance. NUTRITION: Usual food intake pattern. 4 = EXCELLENT: Eats most of every meal.Never refuses a meal. Usually eats a total of 4 or more servings of meat and dairy products. Occasionally eats between meals. Does not require supplementation. FRICTION & SHEAR: 3 = NO APPARENT PROBLEM: Moves in bed and in chair independently and has sufficient muscle strength to lift up completely during move. Maintains good position in bed or chair. Risk Score: 23 Nutrition: Dinner intake: 25% *Progress Note (Data, Assessment, Plan): D/A: Spent most of the shift bed resting. Appropriate during conversations. Incontinent of urine; assisted to change bedding. Ate 25% of dinner in room. Sister visited in early evening. PRN calcium carbonate for heartburn and PRN odansetron for nausea; both effective. Denies SI. P: Continue to monitor and document mood and behavior. /ubaldo/ EZB KATHLEEN SPECIAL PROCEDURE TECHNOLOGIST NURSE Signed: 09/22/2023 23:01 ZEB KATHLEEN [facility] September 22, 2023 03:24 PM MENTAL HEALTH NOTE: LOCAL TITLE: MH PROGRESS NOTE STANDARD TITLE: MENTAL HEALTH NOTE DATE OF NOTE: SEPTEMBER 22, 2023@15:24 ENTRY DATE: SEPTEMBER 22, 2023@15:25:01 AUTHOR: DILAN KWAN COSIGNER: URGENCY: STATUS: COMPLETED Current Concern for Observation Patient: ETOH Safety Review: Suicidal Has patient express suicidal ideation in the last 6 months: No Does the patient have a plan: No Does patient have access to means to carry out the suicide plan: No What level of control does patient feel they have over acting on these thoughts/impulses: Full control Does patient agree not to commit suicide while on the unit: Yes PROTECTIVE FACTORS Patient verbalizes the following reasons to live: Supportive Family/Friends , Sense of hope/future oriented , Roman Catholic/Cultural Beliefs that discourage suicide , Strong problem-solving skills , Strong coping skills, Fear of /pain RISK FACTORS Patient presents with the following predisposing suicide risk factors: Recent stressor or losses (physical, financial, personal), Hopelessness/worthlessness (presence, duration, severity), Alcohol/substance abuse, History of psychiatric diagnosis, Intense guilt or shame Does patient have a history of suicide attempts: No Homicidal Assessment Has patient expressing homicidal ideation in the last 6 months: No Full control Does the patient have homicidal ideation towards one person: No (If yes notify Scientist and Provider) What level of control does patient feel they have over acting on the thoughts/impulses: Full control Does the patient agree not to harm other while on the unit: Yes Does patient have a history of harming others (rape, assault, homicide): No ETOH/Drug Alcohol MINDS Protocol Agitation:0 Normal activity BP Dialstolic:0 <90 Delusions:0 Absent Hallucinations:0 None Orientation:0 Oriented to time, place, person Pulse:0 <90 Seizures:0 None since last rating Sweatin No sweat visible Tremors:0 None MINDS Total Scrore:0 Comments: Summary: [place] is a 68 y/o male voluntarily presented to the ED by EMS via stretcher. for ETOH to seek detox. Patient was cooperative but appeared weak during the admission process to . Admitted under OBS for a night to . He is Staying overnight on 1L then be discharged to his sister on Tuesday (09/22/23) until his enrollment into the RRTP program. Denied SI/HI. Denied current abdominal pain or alcohol withdrawal symptoms. Patient was admitted with the following items: Apple $2.00, Andriod iphone, black wallet with ID cards, 2 T-shirts, shorts and slipper. /ubaldo/ Dilan Kwan RN, BSN, PHN Staff Nurse Signed: 09/22/2023 15:38 DILAN KWAN [facility]
== END 2023-09-22 09:35 | disposition home or self-care (01) ==
LOC: AMB 09-23 17:05
PROVIDERS: Visit Provider Internal Medicine
DX: R10.9 Unspecified abdominal pain (principal); R11.2 Nausea with vomiting, unspecified
CPT/HCPCS: A0425; A0433

== ENCOUNTER 2024-08-15 12:12 | Outpatient (CLI) | payer MEDICARE, OTHER, SELFPAY | END 2024-08-15 12:13 | disposition home or self-care (01) | LOC: AMB 08-16 11:26 | PROVIDERS: Visit Provider Family Medicine | DX: R55 Syncope and collapse (principal); R42 Dizziness and giddiness | CPT/HCPCS: A0425; A0427 ==

== ENCOUNTER 2024-08-15 13:00 | Inpatient (IN) | payer MEDICARE, OTHER, SELFPAY ==
[2024-08-15] VITALS (43 sets, daily range): BP systolic 65–160; BP diastolic 32–104; PULSE 107–188; RESP 6–56; TEMP 36.8–37; O2SAT 89–96; BMI 33.9; BMI 36.4
--- OUTSIDE RECORDS SUMMARY | 2024-08-15 13:02 | XMS_ITS ---
Author Organization [facility] Care Team Providers Care Team Foreman Name Role Phone Sonam Lassiter Unavailable Unavailable Andrey Carrero Unavailable Unavailable Allergies and adverse reactions Code CodeSystem Substance Reaction Severity StartDate Concern Status 41050 RXNORM Zolpidem Unknown 08/18/[address] Penicillins Unknown 08/18/2022 activ e Care Team Name Role Address Phone Organization Dates Andrey Carrero PCP [address] [place] [address] (Office): : [facility] 08/18/2022 - 09/09/2022 Sonam Lassiter Attending Physician [address] [place] [address], [address] [place] [address] (Office): : : [facility] 08/18/2022 - 09/09/2022 Immunizations Immunization Status Vaccine Details Vaccine Code CodeSystem Date Notes TB 2 Step Mantoux Skin Test completed tuberculin skin test; unspecified formulation lotNumber: [id number] expiry: 10/21/2024 Given 0.1 ml Right Forearm intradermally Step 2 of Multi-step with next step required 98 CVX created date: 08/29/2022 consent date: 08/28/2022 administer ed date: 08/29/2022 TB 2 Step Mantoux Skin Test completed tuberculin skin test; unspecified formulation lotNumber: [id number] expiry: 10/21/2024 Mfg: Sanofi Pasteur Given 0.1 ml Right Forearm intradermally Step 1 of Multi-step with next step required 98 CVX created date: 08/24/2022 consent date: 08/24/2022 administer ed date: 08/23/2022 Documented as PCV-20 on 08/23 SARS-COV-2 (COVID-19) cancelled SARS-COV-2 (COVID-19) vaccine, mRNA, spike protein, LNP, bivalent, preservative free, 50 mcg/0.5 mL or 25 mcg/0.25 mL dose 229 CVX created date: 09/10/2022 consent date: 09/10/2022 08/19/22 resident stated I will get it at my Dr. SARS-COV-2 (COVID-19) completed SARS-COV-2 (COVID-19) vaccine, mRNA, spike protein, LNP, preservative free, 100 mcg/0.5mL dose or 50 mcg/0.25mL dose Mfg: Moderna Step 1 of Multi-step 207 CVX created date: 09/01/2022 administer ed date: 11/26/2021 SARS-COV-2 (COVID-19) completed SARS-COV-2 (COVID-19) vaccine, mRNA, spike protein, LNP, preservative free, 100 mcg/0.5mL dose or 50 mcg/0.25mL dose Mfg: Moderna Step 1 of Multi-step 207 CVX created date: 09/01/2022 administer ed date: 04/03/2021 SARS-COV-2 (COVID-19) completed SARS-COV-2 (COVID-19) vaccine, mRNA, spike protein, LNP, preservative free, 30 mcg/0.3mL dose Mfg: Moderna Step 2 of Multi-step with next step required 208 CVX created date: 09/01/2022 administer ed date: 07/23/2020 SARS-COV-2 (COVID-19) completed SARS-COV-2 (COVID-19) vaccine, mRNA, spike protein, LNP, preservative free, 100 mcg/0.5mL dose or 50 mcg/0.25mL dose Mfg: Moderna Step 1 of Multi-step with next step required 207 CVX created date: 09/01/2022 administer ed date: 06/25/2020 PCV-20 completed Pneumococcal conjugate vaccine 20-valent (PCV20), polysaccharide [id number] conjugate, adjuvant, preservative free lotNumber: [id number] expiry: 10/21/2024 Mfg: [employer] Given 0.1 ml Right Forearm subcutaneously 216 CVX created date: 08/23/2022 consent date: 08/23/2022 administer ed date: 08/23/2022 Educated by Myles Bacon on 08/23/2022 Mental Status Section Date Assessment Total Score Description 09/09/2022 CAM 0 No delirium ind icated 08/24/2022 BIMS 15 cognitively int act CAM 0 No delirium ind icated PHQ-9 05 mild depression Problems Problem # Description Date of onset Resolved Date Code CodeSystem Concern Status 1 ALCOHOL ABUSE, UNCOMPLICATED 08/19/[address] active 2 ANEMIA, UNSPECIFIED 08/19/[address] active 3 DEPRESSION, UNSPECIFIED 08/19/[address] active 4 GASTRO-ESOPHAGEAL REFLUX DISEASE WITH ESOPHAGITIS, WITHOUT BLEEDING 08/19/[address] active 5 HALLUCINATIONS, UNSPECIFIED 08/19/[address] active 6 HEREDITARY AND IDIOPATHIC NEUROPATHY, UNSPECIFIED 08/19/[address] active 7 HISTORY OF FALLING 08/19/[address] active 8 HYPERLIPIDEMIA, UNSPECIFIED 08/19/[address] active 9 INSOMNIA, UNSPECIFIED 08/19/[address] active 10 LOCALIZED EDEMA 08/19/[address] a ctive 11 OBSTRUCTIVE SLEEP APNEA (ADULT) (PEDIATRIC) 08/19/[address] active 12 RHEUMATOID ARTHRITIS, UNSPECIFIED 08/19/[address] active 13 UNSPECIFIED FRACTURE OF SECOND LUMBAR VERTEBRA, SUBSEQUENT ENCOUNTER FOR FRACTURE WITH ROUTINE HEALING 08/19/[address] active 14 UNSPECIFIED FRACTURE OF T11-T12 VERTEBRA, SUBSEQUENT ENCOUNTER FOR FRACTURE WITH ROUTINE HEALING 08/19/[address] active 15 UNSPECIFIED FRACTURE OF T7-T8 VERTEBRA, SUBSEQUENT ENCOUNTER FOR FRACTURE WITH ROUTINE HEALING 08/19/[address] active 16 UNSPECIFIED FRACTURE OF THIRD LUMBAR VERTEBRA, SUBSEQUENT ENCOUNTER FOR FRACTURE WITH ROUTINE HEALING 08/19/[address] active 17 FRACTURE OF UNSPECIFIED PARTS OF LUMBOSACRAL SPINE AND PELVIS, SUBSEQUENT ENCOUNTER FOR FRACTURE WITH ROUTINE HEALING 08/07/[address] active Reason for Referral No Reasons for Referral Entered Social History Social History Observation Description Start Date End Date Code Code System Current Smoking Status Tobacco smoking consumption unknown 038899381 SNOMED CT Sex Assigned At Male 1955 16190-2 [facility] Vital Signs Code Code System Vitals Name Values and Units Timing Information 9279-1 [facility] Respiratory Rate Value=17.0 Units=/m in 08/31/2022 8462-4 [facility] Blood Pressure-Diastolic Value=52 Un its=mmHg 08/31/2022 8480-6 [facility] Blood Pressure-Systolic Fmaiz=285 Un its=mmHg 08/31/2022 8310-5 [facility] Body Temperature Value=98.0 Units= F 08/31/2022 8867-4 [facility] Heart rate Value=52.0 Units=/min 38586-5 [facility] O2 % BldC Oximetry Value=95.0 Units= % 08/31/2022 55336-5 [facility] Pain Level Value=6.0 08/31/2022 8302-2 [facility] Height Value=71.0 Units=Inches 08/23/2022 24712-8 [facility] Weight Qnglk=092.9 Units=Lbs 09/2022
--- NOTE | 2024-08-15 13:54 | ED_ITS ---
HPI - Syncope General Chief Complaint: Syncope/Fainted Stated Complaint: Fall Time Seen by Provider: 08/15/24 13:03 History of Present Illness HPI narrative: This 69-year-old male comes in by ambulance because of syncopal events. He states that he felt tired yesterday. This morning he was feeling lightheaded and reports that he fell without injury because of lightheadedness. He had loss of consciousness at that time also. When ambulance arrived they placed him in a chair any began to feel lightheaded again and states that he does not remember what happened for a brief time then also. He does not report any injury. He states that his mouth is dry and that he has had not had anything to eat for a while. He does use alcohol chronically and states that his last drink was yesterday. He does not report any withdrawal type symptoms. He arrives here with normal vital signs except for tachycardia with a heart rate around 110 beats per minute. Related Data Home Medications ?Medication ?Instructions ?Recorded ?Confirmed alendronate 10 mg tablet 10 mg PO DAILY 01/30/23 01/30/23 doxepin 10 mg capsule 10 mg PO QHS PRN 01/30/23 01/30/23 eszopiclone 3 mg tablet 3 mg PO HS PRN 01/30/23 01/30/23 hydrochlorothiazide 25 mg tablet 25 mg PO DAILY 01/30/23 01/30/23 hydroxychloroquine 200 mg tablet 200 mg PO DAILY 01/30/23 01/30/23 omeprazole 20 mg capsule,delayed 20 mg PO DAILY 01/30/23 01/30/23 release simvastatin 20 mg tablet 20 mg PO QPM 01/30/23 01/30/23 vortioxetine 20 mg tablet 20 mg PO DAILY 01/30/23 01/30/23 Previous Rx's ?Medication ?Instructions ?Recorded folic acid 1 mg tablet 1 mg PO DAILY #30 tabs 02/01/23 multivitamin with folic acid 400 1 tab PO DAILY #30 tabs 02/01/23 mcg tablet (Thera) thiamine mononitrate (vit B1) 100 250 mg (2.5 x 100 mg) PO DAILY #30 02/01/23 mg tablet (Vitamin B-1 tabs (mononitrate)) Allergies Allergy/AdvReac Type Severity Reaction Status Date / Time Penicillins Allergy Verified 01/30/23 08:53 Review of Systems Status of ROS: Reports: 10 or more systems reviewed and unremarkable except as noted in History and below Narrative: Constitutional: No fevers, no weight gain or loss. Eyes: No discharge. No vision changes. HENT: No congestion, no sore throat, no ear pain. Cardiovascular: No chest pain, no palpitations. Respiratory: No shortness of breath, no wheezes, no cough. Gastrointestinal: No abdominal pain, no vomiting, no diarrhea. Genitourinary: No dysuria, no hematuria. Musculoskeletal: Normal range of motion. Skin: No rashes, no pruritis. Neurological: No weakness, sensory change, speech change. Lightheadedness with brief syncope as described above. Endo/Heme/Allergies: No bruising or bleeding. No polydipsia. Pysch: no suicidality, no anxiety, no insomnia. All other systems reviewed and are negative. [facility] Medical History (Updated 08/15/24 @ 16:45 by Eliseo Del Rosario MD) PTSD (post-traumatic stress disorder) ?F43.10 - Post-traumatic stress disorder, unspecified (ICD-10) Insomnia ?G47.00 - Insomnia, unspecified (ICD-10) Hyperlipidemia ?E78.5 - Hyperlipidemia, unspecified (ICD-10) Arthritis ?M19.90 - Unspecified osteoarthritis, unspecified site (ICD-10) Hypertension ?I10 - Essential (primary) hypertension (ICD-10) Fall (~07/2022) ?W19.XXXA - Unspecified fall, initial encounter (ICD-10) Pelvic fracture (~07/2022) ?S32.9XXA - Fracture of unspecified parts of lumbosacral spine and pelvis, initial encounter for closed fracture (ICD-10) Social History (Updated 01/30/23 @ 16:37 by Tri Fung MD) Narrative: Quit smoking in 2012, picked it up again last April and smoked through July or August of this year. Has not had cigarettes since that time. Continuous alcohol use over many years with the exception several months while in the hospital and custodial earlier this year for a pelvic fracture that was sustained he tripped down the stairs under the influence of alcohol. Upon returning home about 3 months ago, he increased his drinking quite a bit, but notes that it has now stabilized back down to about 1.5 L of vodka spread out over 6 days. Denies use of any other types of alcohol. Denies recreational drug use, but says if he had access to marijuana he would use it for his chronic pelvic pain. 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 he had several tours in [place] and [place] and has PTSD. He was also in the [employer] for a while. What is your current living situation?: I presently have a place to live Problems where you live: no known problems Problems where you live details: N/A In the past 12 months, utilities in danger of being shut off: no In past 12 months, lack of transportation kept you from medical appts, meetings, work, or getting things needed for daily living: no In the past 12 mos, have been you worried that your food would run out before you had money to buy more?: never true In the past 12 mos, the food you bought just didn't last and you didn't have money to buy more?: never true Highest level of school completed/degree received: Bachelor's degree Smoking Status: Current some day smoker What tobacco products do you use: cigarettes Do you use any of these nicotine containing products: None Second hand tobacco smoke exposure: No How often do you have a drink containing alcohol: 4 or more times a week How many standard drinks containing alcohol do you have on a typical day: 3 or 4 How often do you have six or more drinks on one occasion: Never AUDIT-C Alcohol total score: 5 Non-prescribed substance use: denies use Caffeine: Yes How often does anyone, including family, friends and others, physically hurt you : never How often does anyone, including family, friends and others, insult or talk down to you: never How often does anyone, including family, friends and others, threaten you with harm: never How often does anyone, including family, friends and others, scream or curse at you: never service: Yes Exam Narrative: Exam Narrative: Constitutional: Well-developed, well-nourished, no acute distress. HEENT: Normocephalic, atraumatic. Neck: Normal range of motion. Nontender. Supple. Heart: Regular. No murmurs. Tachycardia, rate 110 beats per minute. Intact distal pulses. Lungs: Clear to auscultation. No chest discomfort. No wheezes, rhonchi, or rales. Abdomen: Normal bowel sounds. Nontender. No rebound tenderness. Genitalia: Deferred. Back: No midline tenderness. Normal range of motion. Extremities: Normal range of motion. No injury. Skin: Intact. No rash. Warm. No erythema or pallor. Neurologic: No altered sensation. No weakness. Alert and oriented. Psychiatric: No suicidality. No anxiety or depression. No insomnia. Nursing notes and vitals signs are reviewed. Const: Vital Signs, click to edit/add: Vital Signs - 24 hr 08/15/24 13:22 08/15/24 13:22 08/15/24 13:23 Temperature 98.6 F Pulse Rate 108 H 108 H Pulse Rate [Pulse Oximeter] 117 H Respiratory Rate 20 20 19 Blood Pressure 132/79 Blood Pressure [Le ft Upper Arm] 132/79 Pulse Oximetry 94 94 93 Oxygen Delivery Me thod Room Air 08/15/24 13:30 08/15/24 13:45 08/15/24 14:00 Temperature Pulse Rate 109 H 108 H 111 H Pulse Rate [Pulse Oximeter] Respiratory Rate 11 L Blood Pressure Blood Pressure [Le ft Upper Arm] Pulse Oximetry 90 90 91 Oxygen Delivery Me thod 08/15/24 14:02 08/15/24 14:15 08/15/24 14:30 Temperature Pulse Rate 107 H 109 H 113 H Pulse Rate [Pulse Oximeter] Respiratory Rate 9 L 14 17 Blood Pressure 122/89 Blood Pressure [Le ft Upper Arm] Pulse Oximetry 92 93 93 Oxygen Delivery Me thod 08/15/24 14:32 08/15/24 14:45 Temperature Pulse Rate 111 H 111 H Pulse Rate [Pulse Oximeter] Respiratory Rate 6 L 7 L Blood Pressure 107/74 Blood Pressure [Le ft Upper Arm] Pulse Oximetry 92 93 Oxygen Delivery Me thod Course Vital Signs Vital signs: Initial Vital Signs Temperature 98.6 F 08/15/24 13:22 Temperature Source Temporal Artery Scan 08/15/24 13:22 Pulse Rate 108 H 08/15/24 13:22 Respiratory Rate 20 08/15/24 13:22 Blood Pressure 132/79 08/15/24 13:22 Blood Pressure Mean 96 08/15/24 13:22 Pulse Oximetry 94 08/15/24 13:22 Oxygen Delivery Method Room Air 08/15/24 13:22 Vital Signs Temperature 98.6 F 08/15/24 13:22 Pulse Rate 108 H 08/15/24 13:22 Respiratory Rate 20 08/15/24 13:22 Blood Pressure 132/79 08/15/24 13:22 Pulse Oximetry 94 08/15/24 13:22 Oxygen Delivery Method Room Air 08/15/24 13:22 Temperature 98.6 F 08/15/24 13:22 Pulse Rate 111 H 08/15/24 14:45 Respiratory Rate 7 L 08/15/24 14:45 Blood Pressure 107/74 08/15/24 14:32 Pulse Oximetry 93 08/15/24 14:45 Oxygen Delivery Method Room Air 08/15/24 13:22 Medications Administered Medications: Discontinued Medications Generic Name Dose Route Start Last Admin Trade Name Freq PRN Reason Stop Dose Admin Sodium Chloride 1,000 mls @ 1,000 mls/hr 08/15/24 14:00 08/15/24 14:56 0.9 % Sodium Chloride 1000 Ml IV 08/15/24 14:59 Infused .Q1H LINDA Infusion Sodium Chloride 1,000 mls @ 1,000 mls/hr 08/15/24 15:15 08/15/24 15:07 0.9 % Sodium Chloride 1000 Ml IV 08/15/24 16:14 1,000 mls/hr .Q1H LINDA Administration Pantoprazole Sodium 40 mg 08/15/24 14:45 08/15/24 14:51 Pantoprazole Sodium 40 Mg Inj IVP 08/15/24 14:46 40 mg ONCE ONE Administration MDM - Syncope MDM Narrative Medical decision making narrative: This 69-year-old male comes in reporting episodes of lightheadedness and brief loss of consciousness. He states that his mouth is dry and that he has not had anything to eat recently. His last drink of alcohol was last evening at around 8:00 p.m.. He does not appear to be in symptoms of withdrawal. He arrives here with normal vital signs but does have some tachycardia. An IV was established and labs are acquired. He received a total of 2 L of normal saline intravenously and states that he is feeling better. Lab results are reassuring. He does have yet a small amount of alcohol and has blood but it is within normal limits. Patient states that he is feeling better and is okay to be discharged home. He is able to get up and ambulate normally. Lab Data Labs: Lab Results 08/15/24 08/15/24 08/15/24 Range/Units 13:53 14:10 16:13 WBC 8.07 (4.50-11.00) K/uL RBC 4.74 (4.30-5.90) m/uL Hgb 16.3 (13.5-17.5) gm/dL Hct 48.2 (37.0-53.0) % MCV 102 H (80-100) fL MCH 34 (26-34) pg MCHC 34 (32-36) gm/dL RDW Coeff of Shayy 11.6 (11.5-15.5) % Plt Count 213 (140-440) K/uL Neut % (Auto) 71.8 (42.0-72.0) % Lymph % (Auto) 16.4 L (20-44) % [place] % (Auto) 9.4 (0.0-11.0) % Eos % (Auto) 1.4 (0.0-7.0) % Baso % (Auto) 0.5 (0.0-3.0) % Neut # (Auto) 5.80 (1.7-7.0) K/uL Lymph # (Auto) 1.30 (0.90-2.90) K/uL [place] # (Auto) 0.80 (0.00-0.90) K/UL Eos # (Auto) 0.11 (0.00-0.50) K/uL Baso # (Auto) 0.04 (0.00-0.30) K/uL Abs Immat Gran (auto) 0.04 (0.00-0.30) K/uL Imm/Tot Granulo (auto) 0.5 % Sodium 136 (135-149) mmol/L Potassium 3.8 (3.6-5.1) mmol/L Chloride 96 (96-114) mmol/L Carbon Dioxide 19 L (20-32) mmol/L Anion Gap 21 H (7-15) mEq/L BUN 13 (7-30) mg/dL Creatinine 0.9 (0.5-1.5) mg/dL Estimated Creat Clear 73.00 Estimated GFR 93 ml/min Glucose 80 (60-115) mg/dL Calcium 9.5 (8.4-10.6) mg/dL Urine Color Irene A (Yellow) Urine Appearance Clear (Clear) Urine pH 5.5 (5.0-8.5) Ur Specific [place] >= 1.030 (1.000-1.030) Urine Protein 3+ A (Negative) Urine Glucose (UA) Negative (Negative) Urine Ketones 3+ A (Negative) Urine Blood Negative (Negative) Urine Nitrite Negative (Negative) Urine Bilirubin 3+ A (Negative) Urine Urobilinogen >=8.0 A (0.2-1.0) Ur Leukocyte Esterase Negative (Negative) Urine RBC 0-2 (0-2) Urine WBC 0-2 (0-5) Ur Squamous Epith Cells None (None-Few) Urine Bacteria Few A (None) Urine Opiates Screen Negative (Negative) Ur Oxycodone Screen Negative (Negative) Urine Methadone Screen Negative (Negative) Ur Barbiturates Screen Negative (Negative) U Tricyclic Antidepress Negative (Negative) Ur Phencyclidine Scrn Negative (Negative) Ur Amphetamines Screen Negative (Negative) U Methamphetamines Scrn Negative (Negative) U Benzodiazepines Scrn Negative (Negative) Urine Cocaine Screen Negative (Negative) U Marijuana (THC) Screen Negative (Negative) Ur Drug Screen Comment See Note Ethyl Alcohol 0.04 H (0.01-0.03) % SARS-CoV-2 (PCR) Negative SARS-CoV-2 (Negative) Influenza Type A (PCR) Negative PCR FLU A (Negative) Influenza Type B (PCR) Negative PCR FLU B (Negative) RSV (PCR) Negative PCR RSV (Negative) ECG Data Attestation: I personally reviewed and interpreted this ECG as follows: Interpretation: Sinus tachycardia. Rate is 107 beats per minute. There are no ST or T-wave abnormalities. Discharge Plan Discharge Clinical Impression: Fluid volume depletion, Alcoholism Patient Disposition: Home, Self-Care Condition: Improved Additional Instructions: Take fluids and food as tolerated. Follow up with MD or return if symptoms are recurrent or worsening. Prescriptions: No Action simvastatin 20 mg tablet 20 mg PO QPM hydrochlorothiazide 25 mg tablet 25 mg PO DAILY hydroxychloroquine 200 mg tablet 200 mg PO DAILY vortioxetine 20 mg tablet 20 mg PO DAILY omeprazole 20 mg capsule,delayed release(DR/EC) 20 mg PO DAILY doxepin 10 mg capsule 10 mg PO QHS PRN alendronate 10 mg tablet 10 mg PO DAILY eszopiclone 3 mg tablet 3 mg PO HS PRN folic acid 1 mg Tablet 1 mg PO DAILY Qty: 30 0RF thiamine mononitrate (vit B1) [Vitamin B-1 (mononitrate)] 100 mg Tablet 250 mg PO DAILY Qty: 30 0RF multivitamin with folic acid [Thera] 400 mcg Tablet 1 tab PO DAILY Qty: 30 0RF Follow Up/Referrals: Provider,Not a Local [Primary Care Provider] - Stand Alone Forms: [facility] Info Instructions
[2024-08-15] MEDS: 0.9 % SODIUM CHLORIDE 1000 ml 1,000 ML IV ×3 (14:09→17:20)
[2024-08-15 14:16] LABS: Basophils Absolute Auto 0.04 K/uL (0.00-0.30); Basophils Percent Auto 0.5 % (0.0-3.0); Eosinophils Absolute Auto 0.11 K/uL (0.00-0.50); Eosinophils Percent Auto 1.4 % (0.0-7.0); Hematocrit 48.2 % (37.0-53.0); Hemoglobin* 16.3 gm/dL (13.5-17.5); Immature Granulocytes Abs Auto 0.04 K/uL (0.00-0.30); Immature Granulocytes Pct Auto 0.5 %; Lymphocytes Percent Auto 16.4 % (20-44); Mean Corpuscular HGB Conc 34 gm/dL (32-36); Mean Corpuscular Hemoglobin 34 pg (26-34); Mean Corpuscular Volume 102 fL (80-100); Monocytes Percent Auto 9.4 % (0.0-11.0); Neutrophils Percent Auto 71.8 % (42.0-72.0); Platelet Count* 213 K/uL (140-440); RDW Coefficient of Variation % 11.6 % (11.5-15.5); Red Blood Count 4.74 m/uL (4.30-5.90); White Blood Count* 8.07 K/uL (4.50-11.00)
[2024-08-15 14:18] LABS: Slide Review Reflex No
[2024-08-15 14:28] LABS: Chloride* 96 mmol/L (96-114)
--- OUTSIDE RECORDS SUMMARY | 2024-08-15 14:28 | XMS_ITS ---
Author Organization [facility] Care Team Providers Care Roping Tender Name Role Phone Sonam Lassiter Unavailable Unavailable Andrey Carrero Unavailable Unavailable Allergies and adverse reactions Code CodeSystem Substance Reaction Severity StartDate Concern Status 77173 RXNORM Zolpidem Unknown 08/18/[address] Penicillins Unknown 08/18/2022 activ e Care Team Name Role Address Phone Organization Dates Andrey Carrero PCP [address] [place] [address] (Office): : [facility] 08/18/2022 - 09/09/2022 Sonam Lassiter Attending Physician [address] [place] [address], [address] [place] [address] (Office): : : [facility] 08/18/2022 - 09/09/2022 Immunizations Immunization Status Vaccine Details Vaccine Code CodeSystem Date Notes TB 2 Step Mantoux Skin Test completed tuberculin skin test; unspecified formulation lotNumber: [id number] expiry: 10/21/2024 Given 0.1 ml Right Forearm intradermally Step 2 of Multi-step with next step required 98 CVX created date: 08/29/2022 consent date: 08/28/2022 administer ed date: 08/29/2022 TB 2 Step Mantoux Skin Test completed tuberculin skin test; unspecified formulation lotNumber: [id number] expiry: 10/21/2024 Mfg: [employer] Given 0.1 [...] completed Pneumococcal conjugate vaccine 20-valent (PCV20), polysaccharide [id number] conjugate, adjuvant, preservative free lotNumber: [id number] expiry: 10/21/2024 Mfg: [employer] Given 0.1 [...] Concern Status 1 ALCOHOL ABUSE, UNCOMPLICATED 08/19/[address] active 2 ANEMIA, UNSPECIFIED 08/19/[address] active 3 DEPRESSION, UNSPECIFIED 08/19/[address] active 4 GASTRO-ESOPHAGEAL REFLUX DISEASE WITH ESOPHAGITIS, WITHOUT BLEEDING 08/19/[address] active 5 HALLUCINATIONS, UNSPECIFIED 08/19/[address] active 6 HEREDITARY AND IDIOPATHIC NEUROPATHY, UNSPECIFIED 08/19/[address] active 7 HISTORY OF FALLING 08/19/[address] active 8 HYPERLIPIDEMIA, UNSPECIFIED 08/19/[address] active 9 INSOMNIA, UNSPECIFIED 08/19/[address] active 10 LOCALIZED EDEMA 08/19/[address] a ctive 11 OBSTRUCTIVE SLEEP APNEA (ADULT) (PEDIATRIC) 08/19/[address] active 12 RHEUMATOID ARTHRITIS, UNSPECIFIED 08/19/[address] active 13 UNSPECIFIED FRACTURE OF SECOND LUMBAR VERTEBRA, SUBSEQUENT ENCOUNTER FOR FRACTURE WITH ROUTINE HEALING 08/19/[address] active 14 UNSPECIFIED FRACTURE OF T11-T12 VERTEBRA, SUBSEQUENT ENCOUNTER FOR FRACTURE WITH ROUTINE HEALING 08/19/[address] active 15 UNSPECIFIED FRACTURE OF T7-T8 VERTEBRA, SUBSEQUENT ENCOUNTER FOR FRACTURE WITH ROUTINE HEALING 08/19/[address] active 16 UNSPECIFIED FRACTURE OF THIRD LUMBAR VERTEBRA, SUBSEQUENT ENCOUNTER FOR FRACTURE WITH ROUTINE HEALING 08/19/[address] active 17 FRACTURE OF UNSPECIFIED PARTS OF LUMBOSACRAL SPINE AND PELVIS, SUBSEQUENT ENCOUNTER FOR FRACTURE WITH ROUTINE HEALING 08/07/[address] active Reason for Referral No Reasons for Referral Entered Social History Social History Observation Description Start Date End Date Code Code System Current Smoking Status Tobacco smoking consumption unknown 890644855 SNOMED CT Sex Assigned At Male 1955 98947-1 [facility] Vital Signs Code Code System Vitals Name Values and Units Timing Information 9279-1 [facility] Respiratory Rate Value=17.0 Units=/m in 08/31/2022 8462-4 [facility] Blood Pressure-Diastolic Value=52 Un its=mmHg 08/31/2022 8480-6 [facility] Blood Pressure-Systolic Ahpgi=598 Un its=mmHg 08/31/2022 8310-5 [facility] Body Temperature Value=98.0 Units= F 08/31/2022 8867-4 [facility] Heart rate Value=52.0 Units=/min 69565-7 [facility] O2 % BldC Oximetry Value=95.0 Units= % 08/31/2022 38908-5 [facility] Pain Level Value=6.0 08/31/2022 8302-2 [facility] Height Value=71.0 Units=Inches 08/23/2022 18199-1 [facility] Weight Hfkws=657.9 Units=Lbs 09/2022
[2024-08-15 14:29] LABS: Potassium* 3.8 mmol/L (3.6-5.1); Sodium* 136 mmol/L (135-149)
[2024-08-15 14:32] LABS: Anion Gap 21 mEq/L (7-15); Blood Urea Nitrogen* 13 mg/dL (7-30); Calcium* 9.5 mg/dL (8.4-10.6); Carbon Dioxide* 19 mmol/L (20-32); Creatinine* 0.9 mg/dL (0.5-1.5); Estimated Glomerular Filt Rate 93 ml/min; Ethanol* 0.04 % (0.01-0.03); Glucose* 80 mg/dL (60-115)
[2024-08-15 14:43] LABS: PCR FLU A Negative PCR FLU A (Negative); PCR FLU B Negative PCR FLU B (Negative); PCR RSV Negative PCR RSV (Negative); SARS PCR* Negative SARS-CoV-2 (Negative)
[2024-08-15] MEDS: PANTOPRAZOLE SODIUM 40 MG INJ IVP (14:51)
[2024-08-15 16:16] LABS: Appearance Urine Clear (Clear); Bilirubin Urine 3+ (Negative); Blood Urine Negative (Negative); Color Urine Amber (Yellow); Glucose Urine Negative (Negative); Ketones Urine 3+ (Negative); Leukocyte Esterase Urine Negative (Negative); Nitrite Urine Negative (Negative); Protein Urine 3+ (Negative); Specific Gravity Urine >= 1.030 (1.000-1.030); Urobilinogen Urine >=8.0 (0.2-1.0); pH Urine 5.5 (5.0-8.5)
[2024-08-15 16:26] LABS: Amphetamine Screen Urine Negative (Negative); Barbiturate Screen Urine Negative (Negative); Benzodiazepines Screen Urine Negative (Negative); Cannabinoid Screen Urine Negative (Negative); Cocaine Screen Urine Negative (Negative); Methadone Screen Urine Negative (Negative); Methamphetamines Screen Urine Negative (Negative); Opiate Screen Urine Negative (Negative); Oxycodone Screen Urine Negative (Negative); Phencyclidine Screen Urine Negative (Negative); Tricyclic Antidepressant Urine Negative (Negative)
[2024-08-15 16:35] LABS: Bacteria Urine Few; RBC Urine 0-2 (0-2); WBC Urine 0-2 (0-5)
[2024-08-15] MEDS: ONDANSETRON 2 MG/ML inj 4 MG IVP (17:50)
[2024-08-15 17:56] LABS: Lactate* 1.6 mmol/L (0.5-1.9)
[2024-08-15 18:01] LABS: Albumin* 4.5 g/dL (3.3-5.0)
[2024-08-15 18:04] LABS: Total Protein* 7.7 g/dL (6.0-8.3)
[2024-08-15 18:05] LABS: Alanine Aminotransferase* 108 U/L (4-50); Alkaline Phosphatase* 157 U/L (40-150); Aspartate Amino Transferase* 264 U/L (12-35); Bilirubin Direct* 1.8 mg/dL (0.0-0.5); Bilirubin Total* 2.8 mg/dL (0.1-1.5); Lipase* 135 U/L (23-300)
[2024-08-15 18:07] LABS: C Reactive Protein* 2.2 mg/dL (0.5-1.0)
[2024-08-15 19:09] LABS: Thyroid Stimulating Hormone* 0.917 uIU/mL (0.270-4.20)
[2024-08-15 19:19] LABS: Erythrocyte SedimentationRate* 5 mm/hr (2-15)
--- NOTE | 2024-08-15 19:19 | CRLHL7_ITS ---
For Patients: As a result of the Century Cures Act, medical imaging exams and procedure reports are released immediately into your electronic medical record. You may view this report before your referring provider. If you have questions, please contact your health care provider. INDICATION: Abdominal pain. TECHNIQUE: CT abdomen and pelvis acquired with 100 cc Omnipaque 350 IV contrast. COMPARISON: January 30, 2023. FINDINGS: Lower chest: Scattered atelectasis. Small hiatal hernia containing some fluid, also seen on prior study. Liver: Severe hepatic steatosis. No suspicious masses. Gallbladder and bile ducts: Unremarkable. No stones or inflammation. No biliary dilatation. Pancreas: Unremarkable. No mass or inflammation. Spleen: Unremarkable. Normal in size. No masses. Adrenal glands: Unremarkable. No nodules. Kidneys: Unremarkable. No suspicious masses, stones, or hydronephrosis. GI tract: Unremarkable. Normal in caliber. No sign of mass or inflammation. Normal appendix. Vasculature: Trace aortoiliac arterial calcifications. Abdominal aorta is normal in caliber. Mesenteric arteries are patent. Lymph nodes: No lymphadenopathy. Peritoneum/Abdominal Wall: Unremarkable. No sign of mass or infiltration. No free air or significant free fluid. Pelvis: Unremarkable. Bones: Chronic pelvic osseous deformities. Chronic T11 deformity. Chronic bilateral rib deformities. IMPRESSION: No acute intra-abdominal/pelvic abnormality. Hepatic steatosis. Please note that all CT scans at this facility use dose modulation, iterative reconstruction, and/or weight-based dosing when appropriate to reduce radiation dose to as low as reasonably achievable. Dictated by Jewel Alatorre MD @ 08/15/2024 8:15:13 PM (Electronically Signed)
[2024-08-15 20:47] LABS: D Dimer Quantitative* 1.26 ug/ml (0.00-0.50)
--- NOTE | 2024-08-15 20:52 | CRLHL7_ITS ---
For Patients: As a result of the Century Cures Act, medical imaging exams and procedure reports are released immediately into your electronic medical record. You may view this report before your referring provider. If you have questions, please contact your health care provider. INDICATION: Tachycardia. TECHNIQUE: CT chest PE was acquired with 95 cc Isovue 370 IV contrast. MIP reconstructions were performed. COMPARISON: None. FINDINGS: Heart and vasculature: Contrast opacification of the pulmonary arterial tree is adequate. No sign of pulmonary embolism. Heart size is normal. Coronary artery calcifications. Thoracic aorta and pulmonary artery are normal in caliber. Lungs and pleura: No suspicious nodules or infiltrates. Scattered atelectasis. No pleural effusions, pleural thickening, or pneumothorax. Lymph nodes/mediastinum: Small hiatal hernia with fluid. No mediastinal, hilar, or axillary adenopathy. Chest wall: No masses. Upper abdomen: Hepatic steatosis. No acute or significant findings. Bones: Age-indeterminate mild T4 compression deformity. Recommend correlation with point tenderness. Chronic T11 compression deformity. Chronic bilateral rib fractures. IMPRESSION: No pulmonary embolism. No focal consolidations. Coronary artery calcifications. Small hiatal hernia with fluid of indeterminate clinical significance, and also seen on prior study. Please note that all CT scans at this facility use dose modulation, iterative reconstruction, and/or weight-based dosing when appropriate to reduce radiation dose to as low as reasonably achievable. Dictated by Jewel Alatorre MD @ 08/15/2024 9:29:28 PM (Electronically Signed)
--- NOTE | 2024-08-15 23:29 | PM.IMHP1 ---
Assessment and Plan Assessment and plan (1) Syncope: Problem comment: Following postural change, orthostatic hypotension, dizziness Tachycardic - PE ruled out. Improving upon admission to the floor Reports worsening [place]O Echo ordered Orthostatics Telemetry. Could consider Zio patch at discharge Received >3 L IVF in ED No head imaging ordered, could consider if persists Status: Acute (2) Orthostatic hypotension: Problem comment: Unable to discharge home from the ED given significant hypotension with tachycardia Previous history of similar in September 2023, onset during [facility] rehab Was taken off of his anti hypertensive medication and started on midodrine - pharmacy will need to confirm dose [facility] psychiatry doubled his duloxetine dose 6 days ago (< 1% adverse reaction includes orthostatic hypotension) IVF in ED Status: Acute (3) Alcoholism: Problem comment: Chronic, 2-4 vodka drinks daily Had been sober for 7 months following rehab in [place] Started drinking again in July, last drink was 8:00 p.m. on 08/14 History of DTs, no seizures CIWA Thiamine 250 t.i.d., folic acid, MVI Status: Acute (4) Transaminitis: Problem comment: Total bili 2.8, direct bili 1.8, AST 264, ALT 108, alk-phos 157 CT abdomen pelvis shows severe hepatic steatosis, no suspicious masses Chronic alcoholism Holding duloxetine, Tylenol, statin if he is on it (pharmacy to confirm) Received > 3 L IVF in ED, recheck CMP in a.m. Status: Acute (5) Hypotension: Problem comment: Previously treated for hypertension, now on midodrine Status: Acute (6) PTSD (post-traumatic stress disorder): Problem comment: Duloxetine recently doubled, 6 days ago Status: Acute (7) Insomnia: Problem comment: Tells me his melatonin dose was decreased to 2 mg very to active sleep (fell out of bed and broke 2 ribs recently) Pharmacy to confirm home medications Status: Acute Total Time Spent Total Time Spent: Today I spent 75 minutes seeing the patient, reviewing Expanse and EPIC notes/diagnostics, discussing the care plan with our care time that includes social work, PT/OT, pharmacy, RT, prison and documenting my impressions and plan in the medical record. Hospitalist- H&P: HPI History of Present Illness Date Seen: 08/15/24 Chief complaint: Fall Narrative: Vance Bustillo is a 69 year old male past medical history significant for hypertension and hypotension, alcoholism, hyperlipidemia, PTSD, GERD is admitted to the medical floor from the ED for further management severe orthostatic hypotension, unsafe to discharge to home. Patient reports feeling unwell approximately 3 days ago. Tells me his PTSD escalated. Denies increased alcohol use over the past 3 days. Poor oral intake. Increased fatigue. Has not taken any of his medications today. Was feeling lightheaded this morning upon standing and actually blacked out. EMS was called and when they placed him into a chair he had a no other syncopal episode. Denies any injury with these events today. Feels dry and dehydrated. Has continued to drink daily. Currently, denies headache or dizziness while lying flat. Lightheaded episodes occur only with positional changes and resolve when he lies down again. He has had these in the past on occasion. Is currently on midodrine. No significant syncopal history however. Denies recent fevers or chills. Denies recent chest pain. Has been more short of breath than usual, specifically with exertion. Can only walk approximately 10 ft before needing to take a break. Used to be able to walk 1 city block. Active smoker, having quit 3 days ago. Smoker. Daily alcohol use - vodka, 2-4 drinks. PCP is the [facility]. Wishes to be a full code Review of Systems Narrative: REVIEW OF SYSTEMS: Complete review of systems performed and negative unless otherwise stated in HPI or below. [facility] Medical History GERD (gastroesophageal reflux disease) ?K21.9 - Gastro-esophageal reflux disease without esophagitis (ICD-10) Hypotension ?I95.9 - Hypotension, unspecified (ICD-10) Orthostatic hypotension ?I95.1 - Orthostatic hypotension (ICD-10) PTSD (post-traumatic stress disorder) ?F43.10 - Post-traumatic stress disorder, unspecified (ICD-10) Insomnia ?G47.00 - Insomnia, unspecified (ICD-10) Hyperlipidemia ?E78.5 - Hyperlipidemia, unspecified (ICD-10) Arthritis ?M19.90 - Unspecified osteoarthritis, unspecified site (ICD-10) Hypertension ?I10 - Essential (primary) hypertension (ICD-10) Fall (~07/2022) ?W19.XXXA - Unspecified fall, initial encounter (ICD-10) Pelvic fracture (~07/2022) ?S32.9XXA - Fracture of unspecified parts of lumbosacral spine and pelvis, initial encounter for closed fracture (ICD-10) Social History Narrative: Quit smoking in 2012, picked it up again last April and smoked through July or August of this year. Has not had cigarettes since that time. Continuous alcohol use over many years with the exception several months while in the hospital and [facility]pc earlier this year for a pelvic fracture that was sustained he tripped down the stairs under the influence of alcohol. Upon returning home about 3 months ago, he increased his drinking quite a bit, but notes that it has now stabilized back down to about 1.5 L of vodka spread out over 6 days. Denies use of any other types of alcohol. Denies recreational drug use, but says if he had access to marijuana he would use it for his chronic pelvic pain. 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 he had several tours in [place] and [place] and has PTSD. He was also in the [employer] for a while. What is your current living situation?: I presently have a place to live Problems where you live: no known problems Problems where you live details: N/A In the past 12 months, utilities in danger of being shut off: no In past 12 months, lack of transportation kept you from medical appts, meetings, work, or getting things needed for daily living: no In the past 12 mos, have been you worried that your food would run out before you had money to buy more?: never true In the past 12 mos, the food you bought just didn't last and you didn't have money to buy more?: never true Highest level of school completed/degree received: Bachelor's degree Smoking Status: Former smoker What tobacco products do you use: cigarettes Smoking quit date/years: <= 15 years ago Do you use any of these nicotine containing products: None Nicotine containing products detail: Hx smoking 1PPD, now three days without smoking - pt attempting to quit Second hand tobacco smoke exposure: No How often do you have a drink containing alcohol: 4 or more times a week Alcohol type: hard liquor Alcohol type details: Pt reports drinking 1 pint of vodka every other day How many standard drinks containing alcohol do you have on a typical day: 3 or 4 How often do you have six or more drinks on one occasion: Never AUDIT-C Alcohol total score: 5 Non-prescribed substance use: denies use Caffeine: Yes How often does anyone, including family, friends and others, physically hurt you: never How often does anyone, including family, friends and others, insult or talk down to you: never How often does anyone, including family, friends and others, threaten you with harm: never How often does anyone, including family, friends and others, scream or curse at you: never service: Yes Meds Home Medications and Allergies Home Medications ?Medication ?Instructions ?Recorded ?Confirmed ?Type alendronate 10 mg tablet 10 mg PO DAILY 01/30/23 08/15/24 History doxepin 10 mg capsule 10 mg PO QHS PRN 01/30/23 08/15/24 History eszopiclone 3 mg tablet 3 mg PO HS PRN 01/30/23 08/15/24 History hydroxychloroquine 200 mg tablet 200 mg PO DAILY 01/30/23 08/15/24 History omeprazole 20 mg capsule,delayed 20 mg PO DAILY 01/30/23 08/15/24 History release simvastatin 20 mg tablet 20 mg PO QPM 01/30/23 08/15/24 History vortioxetine 20 mg tablet 20 mg PO DAILY 01/30/23 08/15/24 History Allergies Allergy/AdvReac Type Severity Reaction Status Date / Time Penicillins Allergy Verified 08/15/24 21:22 Exam Narrative: Exam Narrative: PHYSICAL EXAM General: Pleasant, conversant, NAD HEENT: Normocephalic, atraumatic, sclera white, EOMI, oral mucosa moist Cardiovascular: Mild tachycardia. No pitting edema Pulmonary: CTA bilaterally without rhonchi, rales, expiratory wheezes. No dyspnea on room air Abdominal: Soft, nondistended, NTTP Neurological: Alert, answering questions appropriately, cranial nerves intact, no focal findings Extremities: No gross joint deformity or swelling. AROMI. Neurovascularly intact Skin: Warm, dry. Const: Vital Signs, click to edit/add: Vital Signs - 24 hr 08/15/24 13:22 08/15/24 13:22 08/15/24 13:23 Temperature 98.6 F Pulse Rate 108 H 108 H Pulse Rate [Pulse Oximeter] 117 H Respiratory Rate 20 20 19 Blood Pressure 132/79 Blood Pressure [Le ft Upper Arm] 132/79 Blood Pressure [Ri ght Arm] Pulse Oximetry 94 94 93 Oxygen Delivery Me thod Room Air 08/15/24 13:30 08/15/24 13:45 08/15/24 14:00 Temperature Pulse Rate 109 H 108 H 111 H Pulse Rate [Pulse Oximeter] Respiratory Rate 11 L Blood Pressure Blood Pressure [Le ft Upper Arm] Blood Pressure [Ri ght Arm] Pulse Oximetry 90 90 91 Oxygen Delivery Me thod 08/15/24 14:02 08/15/24 14:15 08/15/24 14:30 Temperature Pulse Rate 107 H 109 H 113 H Pulse Rate [Pulse Oximeter] Respiratory Rate 9 L 14 17 Blood Pressure 122/89 Blood Pressure [Le ft Upper Arm] Blood Pressure [Ri ght Arm] Pulse Oximetry 92 93 93 Oxygen Delivery Me thod 08/15/24 14:32 08/15/24 14:45 08/15/24 15:00 Temperature Pulse Rate 111 H 111 H 109 H Pulse Rate [Pulse Oximeter] Respiratory Rate 6 L 7 L 14 Blood Pressure 107/74 Blood Pressure [Le ft Upper Arm] Blood Pressure [Ri ght Arm] Pulse Oximetry 92 93 93 Oxygen Delivery Me thod Room Air 08/15/24 15:02 08/15/24 15:15 08/15/24 15:30 Temperature Pulse Rate 107 H 109 H 112 H Pulse Rate [Pulse Oximeter] Respiratory Rate 12 15 12 Blood Pressure 132/75 Blood Pressure [Le ft Upper Arm] Blood Pressure [Ri ght Arm] Pulse Oximetry 95 95 93 Oxygen Delivery Me thod Room Air Room Air Room Air 08/15/24 15:32 08/15/24 15:45 08/15/24 16:00 Temperature Pulse Rate 110 H 115 H 114 H Pulse Rate [Pulse Oximeter] Respiratory Rate 14 16 12 Blood Pressure 134/77 Blood Pressure [Le ft Upper Arm] Blood Pressure [Ri ght Arm] Pulse Oximetry 94 95 95 Oxygen Delivery Me thod Room Air Room Air 08/15/24 16:02 08/15/24 16:15 08/15/24 16:30 Temperature Pulse Rate 111 H 113 H 114 H Pulse Rate [Pulse Oximeter] Respiratory Rate 10 L 37 H 19 Blood Pressure 134/77 Blood Pressure [Le ft Upper Arm] Blood Pressure [Ri ght Arm] Pulse Oximetry 95 96 94 Oxygen Delivery Me thod 08/15/24 16:32 08/15/24 16:45 08/15/24 16:59 Temperature Pulse Rate 114 H 115 H Pulse Rate [Pulse Oximeter] Respiratory Rate 14 8 L Blood Pressure 118/73 65/42 L Blood Pressure [Le ft Upper Arm] Blood Pressure [Ri ght Arm] Pulse Oximetry 93 96 Oxygen Delivery Me thod 08/15/24 17:00 08/15/24 17:02 08/15/24 17:15 Temperature Pulse Rate 110 H 113 H Pulse Rate [Pulse Oximeter] Respiratory Rate 19 56 H 16 Blood Pressure 136/72 Blood Pressure [Le ft Upper Arm] Blood Pressure [Ri ght Arm] Pulse Oximetry 93 93 Oxygen Delivery Me thod 08/15/24 17:30 08/15/24 17:32 08/15/24 17:45 Temperature Pulse Rate 122 H 121 H 118 H Pulse Rate [Pulse Oximeter] Respiratory Rate 13 18 19 Blood Pressure 65/32 L 107/59 L Blood Pressure [Le ft Upper Arm] Blood Pressure [Ri ght Arm] Pulse Oximetry 94 94 92 Oxygen Delivery Me thod 08/15/24 18:02 08/15/24 18:32 08/15/24 19:00 Temperature Pulse Rate 120 H 121 H Pulse Rate [Pulse Oximeter] 121 H Respiratory Rate 15 16 18 Blood Pressure 117/62 123/75 Blood Pressure [Le ft Upper Arm] Blood Pressure [Ri ght Arm] 127/68 Pulse Oximetry 90 89 Oxygen Delivery Me thod 08/15/24 19:02 08/15/24 19:32 08/15/24 20:02 Temperature Pulse Rate 121 H 122 H 123 H Pulse Rate [Pulse Oximeter] Respiratory Rate 12 19 18 Blood Pressure 127/68 138/71 160/81 H Blood Pressure [Le ft Upper Arm] Blood Pressure [Ri ght Arm] Pulse Oximetry 91 90 93 Oxygen Delivery Me thod 08/15/24 20:32 08/15/24 21:02 08/15/24 21:32 Temperature Pulse Rate 120 H 119 H 118 H Pulse Rate [Pulse Oximeter] Respiratory Rate 18 18 19 Blood Pressure 125/75 126/69 129/79 Blood Pressure [Le ft Upper Arm] Blood Pressure [Ri ght Arm] Pulse Oximetry 91 94 89 Oxygen Delivery Me thod 08/15/24 21:55 08/15/24 22:08 08/15/24 22:15 Temperature 98.2 F 98.6 F Pulse Rate Pulse Rate [Pulse Oximeter] 188 H 117 H Respiratory Rate 24 19 20 Blood Pressure Blood Pressure [Le ft Upper Arm] 132/79 Blood Pressure [Ri ght Arm] 129/104 H Pulse Oximetry 96 Oxygen Delivery Me thod Room Air Room Air Hospitalist - H&P: Result Labs Labs: Short CBC 08/15/24 Range/Units 14:10 WBC 8.07 (4.50-11.00) K/uL Hgb 16.3 (13.5-17.5) gm/dL Hct 48.2 (37.0-53.0) % Plt Count 213 (140-440) K/uL BMP 08/15/24 14:10 Sodium 136 Potassium 3.8 Chloride 96 Carbon Dioxide 19 L BUN 13 Creatinine 0.9 Glucose 80 Calcium 9.5 Liver Function 08/15/24 Range/Units 17:30 Total Bilirubin 2.8 H (0.1-1.5) mg/dL Direct Bilirubin 1.8 H (0.0-0.5) mg/dL AST 264 H (12-35) U/L ALT 108 H (4-50) U/L Alkaline Phosphatase 157 H (40-150) U/L Albumin 4.5 (3.3-5.0) g/dL Urine 08/15/24 Range/Units 16:13 Urine Color Irene A (Yellow) Urine Appearance Clear (Clear) Urine pH 5.5 (5.0-8.5) Ur Specific [place] >= 1.030 (1.000-1.030) Urine Protein 3+ A (Negative) Urine Glucose (UA) Negative (Negative) ECG Attestation: I personally reviewed and interpreted this ECG as follows: ECG interpretation date: 08/15/24 Interpretation: Sinus tachycardia, rate 107, QTC [address] abdomen pelvis: Attestation: I have reviewed the pertinent imaging results. Radiologist's impression: Lower chest: Scattered atelectasis. Small hiatal hernia containing some fluid, also seen on prior study. Liver: Severe hepatic steatosis. No suspicious masses. Gallbladder and bile ducts: Unremarkable. No stones or inflammation. No biliary dilatation. Pancreas: Unremarkable. No mass or inflammation. Spleen: Unremarkable. Normal in size. No masses. Adrenal glands: Unremarkable. No nodules. Kidneys: Unremarkable. No suspicious masses, stones, or hydronephrosis. GI tract: Unremarkable. Normal in caliber. No sign of mass or inflammation. Normal appendix. Vasculature: Trace aortoiliac arterial calcifications. Abdominal aorta is normal in caliber. Mesenteric arteries are patent. Lymph nodes: No lymphadenopathy. Peritoneum/Abdominal Wall: Unremarkable. No sign of mass or infiltration. No free air or significant free fluid. Pelvis: Unremarkable. Bones: Chronic pelvic osseous deformities. Chronic T11 deformity. Chronic bilateral rib deformities. IMPRESSION: No acute intra-abdominal/pelvic abnormality. Hepatic steatosis. CTA chest PE: Attestation: I have reviewed the pertinent imaging results. Radiologist's impression: Heart and vasculature: Contrast opacification of the pulmonary arterial tree is adequate. No sign of pulmonary embolism. Heart size is normal. Coronary artery calcifications. Thoracic aorta and pulmonary artery are normal in caliber. Lungs and pleura: No suspicious nodules or infiltrates. Scattered atelectasis. No pleural effusions, pleural thickening, or pneumothorax. Lymph nodes/mediastinum: Small hiatal hernia with fluid. No mediastinal, hilar, or axillary adenopathy. Chest wall: No masses. Upper abdomen: Hepatic steatosis. No acute or significant findings. Bones: Age-indeterminate mild T4 compression deformity. Recommend correlation with point tenderness. Chronic T11 compression deformity. Chronic bilateral rib fractures. IMPRESSION: No pulmonary embolism. No focal consolidations. Coronary artery calcifications. Small hiatal hernia with fluid of indeterminate clinical significance, and also seen on prior study.
[2024-08-15 23:53] LABS: Magnesium* 1.3 mg/dL (1.5-2.6)
[2024-08-16] VITALS (16 sets, daily range): BP systolic 78–161; BP diastolic 52–109; PULSE 95–126; RESP 16–20; TEMP 36.2–36.8; O2SAT 56–97
[2024-08-16] MEDS: MELATONIN 3 MG TABLET PO (00:14)
[2024-08-16] MEDS: THIAMINE 250 MG in 0.9 % SODIUM CHLORIDE 100 ml 100 ML 102.5 MG IVPB ×2 (00:14→09:50)
[2024-08-16] MEDS: MAGNESIUM OXIDE 400 MG TABLET PO ×2 (00:15→20:40)
[2024-08-16 06:44] LABS: Hematocrit 44.6 % (37.0-53.0); Hemoglobin* 15.1 gm/dL (13.5-17.5); Mean Corpuscular HGB Conc 34 gm/dL (32-36); Mean Corpuscular Hemoglobin 35 pg (26-34); Mean Corpuscular Volume 104 fL (80-100); Platelet Count* 200 K/uL (140-440); Red Blood Count 4.29 m/uL (4.30-5.90); White Blood Count* 7.69 K/uL (4.50-11.00)
[2024-08-16 07:00] LABS: Albumin* 4.1 g/dL (3.3-5.0); Chloride* 96 mmol/L (96-114); Potassium* 3.7 mmol/L (3.6-5.1); Sodium* 135 mmol/L (135-149)
[2024-08-16 07:03] LABS: Alanine Aminotransferase* 92 U/L (4-50); Alkaline Phosphatase* 129 U/L (40-150); Anion Gap 14 mEq/L (7-15); Aspartate Amino Transferase* 139 U/L (12-35); Bilirubin Total* 2.3 mg/dL (0.1-1.5); Blood Urea Nitrogen* 10 mg/dL (7-30); Calcium* 9.1 mg/dL (8.4-10.6); Carbon Dioxide* 25 mmol/L (20-32); Creatinine* 0.9 mg/dL (0.5-1.5); Estimated Glomerular Filt Rate 93 ml/min; Glucose* 90 mg/dL (60-115); Total Protein* 7.1 g/dL (6.0-8.3)
[2024-08-16 07:28] LABS: Slide Review Reflex No
[2024-08-16] MEDS: OMEPRAZOLE 20 MG CAPSULE DR PO (07:33)
[2024-08-16 07:46] LABS: C Reactive Protein* 2.8 mg/dL (0.5-1.0)
--- NOTE | 2024-08-16 08:08 | PC.NURSE ---
pleasant and cooperative. No ativan needed per CIWA protocol. Pt O2 desat to 56% while asleep, communications writer noted apneic episodes 30-40 seconds. Placed on NC at 2L, sats increased to 99% until pt fell into deep sleep and started having apneic episodes ? to which he would wake to taking a big breath ? O2 sats climbed back up into the 90s. Pt reports having a cpap but it is broken, states he will work on getting it fixed.
[2024-08-16 08:15] LABS: Lab Add On Test New Spec Needed
[2024-08-16 08:44] LABS: HCO3 VBG 27 mmol/L (21-28); PCO2 VBG 50 mmHG (40-50); PO2 VBG < 30.1 mmHG (25-47); pH VBG 7.345 (7.32-7.43)
--- NOTE | 2024-08-16 09:24 | PM.IMPN1 ---
Assessment and Plan Assessment and plan (1) Orthostatic hypotension: Problem comment: - very symptomatic, was unable to d/c home from ED - possibly worsened by ETOH use - h/o similar similar in September 2023, onset during ETOH rehab (at that time, BP meds d/c and Midodrink initiated) - Notably, CT psychiatry doubled his duloxetine dose 6 days ago (< 1% adverse reaction includes orthostatic hypotension) - therapies ordered, will obtain TTE as well Status: Acute (2) Syncope: Problem comment: - prior to ER arrival, following postural change, orthostatic hypotension, dizziness - no PE on ER imaging, + orthostasis - TTE, telemetry - therapies - no recurrence on 08/16/24 Status: Acute (3) Acute hypoxic respiratory failure: Problem comment: - appears acute on chronic, likely 2/2 KAREL (no evidence of acute infectious process), may have mild/early COPD given smoking history - overnight, had saturations in the 60% range, this morning (while awake), was as low as 85% on RA - no acute abnormalities on chest CT upon admission, TTE ordered and pending Status: Acute (4) Alcoholism: Problem comment: - chronic ETOH use disorder, 2-4 vodka drinks daily - was been sober for 7 months following rehab in [place] 2023 - started drinking again in July 2024, last drink was 8:00 p.m. on 08/14 - History of DTs, no seizures - following CIWA, receiving thiamine 250mg TID, folic acid, MVI Status: Acute (5) Transaminitis: Problem comment: - admission labs: Total bili 2.8, direct bili 1.8, AST 264, ALT 108, alk-phos 157 - CT A/P: severe hepatic steatosis, no suspicious masses - long history of ETOH overuse - hepatitis panel pending - LFTs trending downward 08/16 Status: Acute (6) PTSD (post-traumatic stress disorder): Problem comment: - [facility] Status: Acute (7) Insomnia: Problem comment: - on Melatonin, Lunesta, and Cyproheptadine as an outpatient per [facility] Status: Acute Plan - continue supplemental oxygen for hypoxia, RT referral, TTE - therapies, restart midodrine for orthostatic hypotension - likely home 1-2 days pending clinical course and stability on RA Subjective Date Seen: 08/16/24 Interval history: Vance was admitted to the hospital 08/15 for severe symptomatic orthostatic hypotension, syncope at home prior to admission. Associated symptoms include worsening dyspnea on exertion, new hypoxic respiratory failure requiring supplemental oxygen. Reassuring VBG. No cough or chest pain accompanies his dyspnea or hypoxia. Admission imaging was reassuring. History of alcohol use disorder, last drink 08/14/24 at 2000. This morning, continues to have symptomatic orthostatic hypotension (BP 78/52). No chest pain, persistent dyspnea with exertion. Therapies following. Vanec would like to restart his home medication of midodrine which was previously initiated for his orthostatic hypotension. CIWA scores 0-1. Exam Narrative: Exam Narrative: GEN: Alert and oriented, sitting comfortably in bed and having breakfast HEENT: EOMIs bilaterally, no scleral icterus CV: RRR, No concerning murmurs R: LCTA bilaterally without concerning wheezing, air movement adequate Ext: wwp, trace bilateral lower extremity edema Skin: No concerning skin lesions or rashes on exposed skin Neuro: Nonfocal Psych: Appropriate Const: Vital Signs, click to edit/add: Vital Signs - 24 hr 08/15/24 13:22 08/15/24 13:22 08/15/24 13:23 Temperature 98.6 F Pulse Rate 108 H 108 H Pulse Rate [Pulse Oximeter] 117 H Pulse Rate [orthos tatic lying] Pulse Rate [orthos tatic sitting] Pulse Rate [orthos tatic standing] Respiratory Rate 20 20 19 Blood Pressure 132/79 Blood Pressure [Le ft Upper Arm] 132/79 Blood Pressure [Ri ght Arm] Blood Pressure [or thostatic lying Ri ght Arm] Blood Pressure [or thostatic sitting] Blood Pressure [or thostatic standing ] Pulse Oximetry 94 94 93 Oxygen Delivery Me thod Room Air 08/15/24 13:30 08/15/24 13:45 08/15/24 14:00 Temperature Pulse Rate 109 H 108 H 111 H Pulse Rate [Pulse Oximeter] Pulse Rate [orthos tatic lying] Pulse Rate [orthos tatic sitting] Pulse Rate [orthos tatic standing] Respiratory Rate 11 L Blood Pressure Blood Pressure [Le ft Upper Arm] Blood Pressure [Ri ght Arm] Blood Pressure [or thostatic lying Ri ght Arm] Blood Pressure [or thostatic sitting] Blood Pressure [or thostatic standing ] Pulse Oximetry 90 90 91 Oxygen Delivery Me thod 08/15/24 14:02 08/15/24 14:15 08/15/24 14:30 Temperature Pulse Rate 107 H 109 H 113 H Pulse Rate [Pulse Oximeter] Pulse Rate [orthos tatic lying] Pulse Rate [orthos tatic sitting] Pulse Rate [orthos tatic standing] Respiratory Rate 9 L 14 17 Blood Pressure 122/89 Blood Pressure [Le ft Upper Arm] Blood Pressure [Ri ght Arm] Blood Pressure [or thostatic lying Ri ght Arm] Blood Pressure [or thostatic sitting] Blood Pressure [or thostatic standing ] Pulse Oximetry 92 93 93 Oxygen Delivery Me thod 08/15/24 14:32 08/15/24 14:45 08/15/24 15:00 Temperature Pulse Rate 111 H 111 H 109 H Pulse Rate [Pulse Oximeter] Pulse Rate [orthos tatic lying] Pulse Rate [orthos tatic sitting] Pulse Rate [orthos tatic standing] Respiratory Rate 6 L 7 L 14 Blood Pressure 107/74 Blood Pressure [Le ft Upper Arm] Blood Pressure [Ri ght Arm] Blood Pressure [or thostatic lying Ri ght Arm] Blood Pressure [or thostatic sitting] Blood Pressure [or thostatic standing ] Pulse Oximetry 92 93 93 Oxygen Delivery Mo thod Room Air 08/15/24 15:02 08/15/24 15:15 08/15/24 15:30 Temperature Pulse Rate 107 H 109 H 112 H Pulse Rate [Pulse Oximeter] Pulse Rate [orthos tatic lying] Pulse Rate [orthos tatic sitting] Pulse Rate [orthos tatic standing] Respiratory Rate 12 15 12 Blood Pressure 132/75 Blood Pressure [Le ft Upper Arm] Blood Pressure [Ri ght Arm] Blood Pressure [or thostatic lying Ri ght Arm] Blood Pressure [or thostatic sitting] Blood Pressure [or thostatic standing ] Pulse Oximetry 95 95 93 Oxygen Delivery Mo thod Room Air Room Air Room Air 08/15/24 15:32 08/15/24 15:45 08/15/24 16:00 Temperature Pulse Rate 110 H 115 H 114 H Pulse Rate [Pulse Oximeter] Pulse Rate [orthos tatic lying] Pulse Rate [orthos tatic sitting] Pulse Rate [orthos tatic standing] Respiratory Rate 14 16 12 Blood Pressure 134/77 Blood Pressure [Le ft Upper Arm] Blood Pressure [Ri ght Arm] Blood Pressure [or thostatic lying Ri ght Arm] Blood Pressure [or thostatic sitting] Blood Pressure [or thostatic standing ] Pulse Oximetry 94 95 95 Oxygen Delivery Me thod Room Air Room Air 08/15/24 16:02 08/15/24 16:15 08/15/24 16:30 Temperature Pulse Rate 111 H 113 H 114 H Pulse Rate [Pulse Oximeter] Pulse Rate [orthos tatic lying] Pulse Rate [orthos tatic sitting] Pulse Rate [orthos tatic standing] Respiratory Rate 10 L 37 H 19 Blood Pressure 134/77 Blood Pressure [Le ft Upper Arm] Blood Pressure [Ri ght Arm] Blood Pressure [or thostatic lying Ri ght Arm] Blood Pressure [or thostatic sitting] Blood Pressure [or thostatic standing ] Pulse Oximetry 95 96 94 Oxygen Delivery Me thod 08/15/24 16:32 08/15/24 16:45 08/15/24 16:59 Temperature Pulse Rate 114 H 115 H Pulse Rate [Pulse Oximeter] Pulse Rate [orthos tatic lying] Pulse Rate [orthos tatic sitting] Pulse Rate [orthos tatic standing] Respiratory Rate 14 8 L Blood Pressure 118/73 65/42 L Blood Pressure [Le ft Upper Arm] Blood Pressure [Ri ght Arm] Blood Pressure [or thostatic lying Ri ght Arm] Blood Pressure [or thostatic sitting] Blood Pressure [or thostatic standing ] Pulse Oximetry 93 96 Oxygen Delivery Me thod 08/15/24 17:00 08/15/24 17:02 08/15/24 17:15 Temperature Pulse Rate 110 H 113 H Pulse Rate [Pulse Oximeter] Pulse Rate [orthos tatic lying] Pulse Rate [orthos tatic sitting] Pulse Rate [orthos tatic standing] Respiratory Rate 19 56 H 16 Blood Pressure 136/72 Blood Pressure [Le ft Upper Arm] Blood Pressure [Ri ght Arm] Blood Pressure [or thostatic lying Ri ght Arm] Blood Pressure [or thostatic sitting] Blood Pressure [or thostatic standing ] Pulse Oximetry 93 93 Oxygen Delivery Me thod 08/15/24 17:30 08/15/24 17:32 08/15/24 17:45 Temperature Pulse Rate 122 H 121 H 118 H Pulse Rate [Pulse Oximeter] Pulse Rate [orthos tatic lying] Pulse Rate [orthos tatic sitting] Pulse Rate [orthos tatic standing] Respiratory Rate 13 18 19 Blood Pressure 65/32 L 107/59 L Blood Pressure [Le ft Upper Arm] Blood Pressure [Ri ght Arm] Blood Pressure [or thostatic lying Ri ght Arm] Blood Pressure [or thostatic sitting] Blood Pressure [or thostatic standing ] Pulse Oximetry 94 94 92 Oxygen Delivery Mo thod 08/15/24 18:02 08/15/24 18:32 08/15/24 19:00 Temperature Pulse Rate 120 H 121 H Pulse Rate [Pulse Oximeter] 121 H Pulse Rate [orthos tatic lying] Pulse Rate [orthos tatic sitting] Pulse Rate [orthos tatic standing] Respiratory Rate 15 16 18 Blood Pressure 117/62 123/75 Blood Pressure [Le ft Upper Arm] Blood Pressure [Ri ght Arm] 127/68 Blood Pressure [or thostatic lying Ri ght Arm] Blood Pressure [or thostatic sitting] Blood Pressure [or thostatic standing ] Pulse Oximetry 90 89 Oxygen Delivery Mo thod 08/15/24 19:02 08/15/24 19:32 08/15/24 20:02 Temperature Pulse Rate 121 H 122 H 123 H Pulse Rate [Pulse Oximeter] Pulse Rate [orthos tatic lying] Pulse Rate [orthos tatic sitting] Pulse Rate [orthos tatic standing] Respiratory Rate 12 19 18 Blood Pressure 127/68 138/71 160/81 H Blood Pressure [Le ft Upper Arm] Blood Pressure [Ri ght Arm] Blood Pressure [or thostatic lying Ri ght Arm] Blood Pressure [or thostatic sitting] Blood Pressure [or thostatic standing ] Pulse Oximetry 91 90 93 Oxygen Delivery Mo thod 08/15/24 20:32 08/15/24 21:02 08/15/24 21:32 Temperature Pulse Rate 120 H 119 H 118 H Pulse Rate [Pulse Oximeter] Pulse Rate [orthos tatic lying] Pulse Rate [orthos tatic sitting] Pulse Rate [orthos tatic standing] Respiratory Rate 18 18 19 Blood Pressure 125/75 126/69 129/79 Blood Pressure [Le ft Upper Arm] Blood Pressure [Ri ght Arm] Blood Pressure [or thostatic lying Ri ght Arm] Blood Pressure [or thostatic sitting] Blood Pressure [or thostatic standing ] Pulse Oximetry 91 94 89 Oxygen Delivery Me thod 08/15/24 21:55 08/15/24 22:08 08/15/24 22:15 Temperature 98.2 F 98.6 F Pulse Rate Pulse Rate [Pulse Oximeter] 188 H 117 H Pulse Rate [orthos tatic lying] Pulse Rate [orthos tatic sitting] Pulse Rate [orthos tatic standing] Respiratory Rate 24 19 20 Blood Pressure Blood Pressure [Le ft Upper Arm] 132/79 Blood Pressure [Ri ght Arm] 129/104 H Blood Pressure [or thostatic lying Ri ght Arm] Blood Pressure [or thostatic sitting] Blood Pressure [or thostatic standing ] Pulse Oximetry 96 Oxygen Delivery Me thod Room Air Room Air 08/15/24 22:24 08/15/24 23:00 08/16/24 00:00 Temperature 98.3 F Pulse Rate 114 H Pulse Rate [Pulse Oximeter] 112 H Pulse Rate [orthos tatic lying] Pulse Rate [orthos tatic sitting] Pulse Rate [orthos tatic standing] Respiratory Rate 18 18 Blood Pressure Blood Pressure [Le ft Upper Arm] Blood Pressure [Ri ght Arm] 161/109 H Blood Pressure [or thostatic lying Ri ght Arm] Blood Pressure [or thostatic sitting] Blood Pressure [or thostatic standing ] Pulse Oximetry 91 Oxygen Delivery Mo thod Room Air 08/16/24 02:00 08/16/24 02:33 08/16/24 02:45 Temperature 98.1 F Pulse Rate Pulse Rate [Pulse Oximeter] 111 H Pulse Rate [orthos tatic lying] Pulse Rate [orthos tatic sitting] Pulse Rate [orthos tatic standing] Respiratory Rate 18 Blood Pressure Blood Pressure [Le ft Upper Arm] Blood Pressure [Ri ght Arm] 114/91 H Blood Pressure [or thostatic lying Ri ght Arm] Blood Pressure [or thostatic sitting] Blood Pressure [or thostatic standing ] Pulse Oximetry 88 56 L 97 Oxygen Delivery Mo thod Room Air Room Air Room Air 08/16/24 05:50 08/16/24 06:54 08/16/24 07:34 Temperature 97.8 F Pulse Rate 101 H Pulse Rate [Pulse Oximeter] 105 H Pulse Rate [orthos tatic lying] 109 H Pulse Rate [orthos tatic sitting] 118 H Pulse Rate [orthos tatic standing] 126 H Respiratory Rate 20 Blood Pressure Blood Pressure [Le ft Upper Arm] Blood Pressure [Ri ght Arm] 136/94 H Blood Pressure [or thostatic lying Ri ght Arm] 124/80 Blood Pressure [or thostatic sitting] 94/62 Blood Pressure [or thostatic standing ] 78/52 L Pulse Oximetry 92 Oxygen Delivery Me thod Room Air 08/16/24 09:23 Temperature Pulse Rate Pulse Rate [Pulse Oximeter] Pulse Rate [orthos tatic lying] Pulse Rate [orthos tatic sitting] Pulse Rate [orthos tatic standing] Respiratory Rate Blood Pressure Blood Pressure [Le ft Upper Arm] Blood Pressure [Ri ght Arm] Blood Pressure [or thostatic lying Ri ght Arm] Blood Pressure [or thostatic sitting] Blood Pressure [or thostatic standing ] Pulse Oximetry 85 L Oxygen Delivery Me thod Room Air Labs Labs: Laboratory Results - last 24 hr 08/15/24 08/15/24 08/15/24 13:53 14:10 16:13 WBC 8.07 RBC 4.74 Hgb 16.3 Hct 48.2 MCV 102 H MCH 34 MCHC 34 RDW Coeff of Shayy 11.6 Plt Count 213 Neut % (Auto) 71.8 Lymph % (Auto) 16.4 L [place] % (Auto) 9.4 Eos % (Auto) 1.4 Baso % (Auto) 0.5 Neut # (Auto) 5.80 Lymph # (Auto) 1.30 [place] # (Auto) 0.80 Eos # (Auto) 0.11 Baso # (Auto) 0.04 Abs Immat Gran (auto) 0.04 Imm/Tot Granulo (auto) 0.5 ESR D-Dimer Quant (PE/DVT) 1.26 H VBG pH VBG pCO2 VBG pO2 VBG HCO3 Sodium 136 Potassium 3.8 Chloride 96 Carbon Dioxide 19 L Anion Gap 21 H BUN 13 Creatinine 0.9 Estimated Creat Clear 73.00 Estimated GFR 93 Glucose 80 Lactate Calcium 9.5 Magnesium Total Bilirubin Direct Bilirubin AST ALT Alkaline Phosphatase C-Reactive Protein Total Protein Albumin Lipase TSH Urine Color Irene A Urine Appearance Clear Urine pH 5.5 Ur Specific [place] >= 1.030 Urine Protein 3+ A Urine Glucose (UA) Negative Urine Ketones 3+ A Urine Blood Negative Urine Nitrite Negative Urine Bilirubin 3+ A Urine Urobilinogen >=8.0 A Ur Leukocyte Esterase Negative Urine RBC 0-2 Urine WBC 0-2 Ur Squamous Epith Cells None Urine Bacteria Few A Urine Opiates Screen Negative Ur Oxycodone Screen Negative Urine Methadone Screen Negative Ur Barbiturates Screen Negative U Tricyclic Antidepress Negative Ur Phencyclidine Scrn Negative Ur Amphetamines Screen Negative U Methamphetamines Scrn Negative U Benzodiazepines Scrn Negative Urine Cocaine Screen Negative U Marijuana (THC) Screen Negative Ur Drug Screen Comment See Note Ethyl Alcohol 0.04 H SARS-CoV-2 (PCR) Negative SARS-CoV-2 Influenza Type A (PCR) Negative PCR FLU A Influenza Type B (PCR) Negative PCR FLU B RSV (PCR) Negative PCR RSV Lab Acknowledgement POC Troponin I 08/15/24 08/15/24 08/15/24 17:30 17:57 23:29 WBC RBC Hgb Hct MCV MCH MCHC RDW Coeff of Shayy Plt Count Neut % (Auto) Lymph % (Auto) [place] % (Auto) Eos % (Auto) Baso % (Auto) Neut # (Auto) Lymph # (Auto) [place] # (Auto) Eos # (Auto) Baso # (Auto) Abs Immat Gran (auto) Imm/Tot Granulo (auto) ESR 5 D-Dimer Quant (PE/DVT) VBG pH VBG pCO2 VBG pO2 VBG HCO3 Sodium Potassium Chloride Carbon Dioxide Anion Gap BUN Creatinine Estimated Creat Clear Estimated GFR Glucose Lactate 1.6 Calcium Magnesium 1.3 L Total Bilirubin 2.8 H Direct Bilirubin 1.8 H AST 264 H ALT 108 H Alkaline Phosphatase 157 H C-Reactive Protein 2.2 H Total Protein 7.7 Albumin 4.5 Lipase 135 TSH 0.917 Urine Color Urine Appearance Urine pH Ur Specific [place] Urine Protein Urine Glucose (UA) Urine Ketones Urine Blood Urine Nitrite Urine Bilirubin Urine Urobilinogen Ur Leukocyte Esterase Urine RBC Urine WBC Ur Squamous Epith Cells Urine Bacteria Urine Opiates Screen Ur Oxycodone Screen Urine Methadone Screen Ur Barbiturates Screen U Tricyclic Antidepress Ur Phencyclidine Scrn Ur Amphetamines Screen U Methamphetamines Scrn U Benzodiazepines Scrn Urine Cocaine Screen U Marijuana (THC) Screen Ur Drug Screen Comment Ethyl Alcohol SARS-CoV-2 (PCR) Influenza Type A (PCR) Influenza Type B (PCR) RSV (PCR) Lab Acknowledgement Test Added POC Troponin I 0.00 L 08/16/24 08/16/24 08/16/24 06:09 08:12 08:40 WBC 7.69 RBC 4.29 L Hgb 15.1 Hct 44.6 MCV 104 H MCH 35 H MCHC 34 RDW Coeff of Shayy Plt Count 200 Neut % (Auto) Lymph % (Auto) [place] % (Auto) Eos % (Auto) Baso % (Auto) Neut # (Auto) Lymph # (Auto) [place] # (Auto) Eos # (Auto) Baso # (Auto) Abs Immat Gran (auto) Imm/Tot Granulo (auto) ESR D-Dimer Quant (PE/DVT) VBG pH 7.345 VBG pCO2 50 VBG pO2 < 30.1 VBG HCO3 27 Sodium 135 Potassium 3.7 Chloride 96 Carbon Dioxide 25 Anion Gap 14 BUN 10 Creatinine 0.9 Estimated Creat Clear 75.30 Estimated GFR 93 Glucose 90 Lactate Calcium 9.1 Magnesium Total Bilirubin 2.3 H Direct Bilirubin AST 139 H ALT 92 H Alkaline Phosphatase 129 C-Reactive Protein 2.8 H Total Protein 7.1 Albumin 4.1 Lipase TSH Urine Color Urine Appearance Urine pH Ur Specific [place] Urine Protein Urine Glucose (UA) Urine Ketones Urine Blood Urine Nitrite Urine Bilirubin Urine Urobilinogen Ur Leukocyte Esterase Urine RBC Urine WBC Ur Squamous Epith Cells Urine Bacteria Urine Opiates Screen Ur Oxycodone Screen Urine Methadone Screen Ur Barbiturates Screen U Tricyclic Antidepress Ur Phencyclidine Scrn Ur Amphetamines Screen U Methamphetamines Scrn U Benzodiazepines Scrn Urine Cocaine Screen U Marijuana (THC) Screen Ur Drug Screen Comment Ethyl Alcohol SARS-CoV-2 (PCR) Influenza Type A (PCR) Influenza Type B (PCR) RSV (PCR) Lab Acknowledgement New Spec Needed A POC Troponin I
[2024-08-16] MEDS: MULTIVITAMIN/MINERALS 1 TABLET 1 TAB PO (09:40)
[2024-08-16] MEDS: FOLIC ACID 1 MG TABLET PO (09:40)
[2024-08-16] MEDS: SODIUM CHLORIDE 0.9 % (FLUSH) 10 ML SYRINGE 5 ML IVF ×2 (09:41→23:03)
[2024-08-16] MEDS: DULOXETINE HCL 20 MG CAPSULE DR 40 MG PO (12:38)
[2024-08-16] MEDS: MIDODRINE HCL 5 MG TABLET PO ×2 (12:43→18:12)
[2024-08-16] MEDS: PERFLUTREN LIPID MICROSPHERES 2 ML VIAL IVP (14:14)
--- NOTE | 2024-08-16 19:28 | PC.NURSE ---
The patient is passive with cares, foul smelling urine and voids small amounts at a time. Encouraged fluid intake throughout the day. Up SBA w/ RW although notes to be dizzy at times. Very unmotivated for any type of activity, refused getting up multiple times this AM. Was up 2x this afternoon, although could not tolerate ambulating far due reports of becoming dizzy. Appetite is stable. Call light within reach. Does not recall when he had his last BM Frieda BETANCOURT BSN
[2024-08-16] MEDS: ENOXAPARIN 40 MG/0.4 ML INJ SUBCUT (20:40)
[2024-08-16] MEDS: THIAMINE 100 MG TABLET 250 MG PO (20:40)
[2024-08-16] MEDS: CYPROHEPTADINE HCL 4 MG TABLET 2 MG PO (23:01)
[2024-08-17] VITALS (9 sets, daily range): BP systolic 126–162; BP diastolic 76–90; PULSE 66–104; RESP 12–24; TEMP 36.6; O2SAT 81–97
[2024-08-17 06:38] LABS: Basophils Absolute Auto 0.03 K/uL (0.00-0.30); Basophils Percent Auto 0.7 % (0.0-3.0); Eosinophils Percent Auto 6.7 % (0.0-7.0); Hemoglobin* 14.7 gm/dL (13.5-17.5); Immature Granulocytes Abs Auto 0.02 K/uL (0.00-0.30); Immature Granulocytes Pct Auto 0.4 %; Lymphocytes Absolute Auto 1.47 K/uL (0.90-2.90); Lymphocytes Percent Auto 32.6 % (20-44); Mean Corpuscular HGB Conc 33 gm/dL (32-36); Mean Corpuscular Hemoglobin 35 pg (26-34); Mean Corpuscular Volume 104 fL (80-100); Monocytes Percent Auto 9.3 % (0.0-11.0); Neutrophils Absolute Auto 2.27 K/uL (1.7-7.0); Neutrophils Percent Auto 50.3 % (42.0-72.0); Platelet Count* 167 K/uL (140-440); RDW Coefficient of Variation % 11.7 % (11.5-15.5); Red Blood Count 4.25 m/uL (4.30-5.90); White Blood Count* 4.51 K/uL (4.50-11.00)
[2024-08-17 06:39] LABS: Slide Review Reflex No
[2024-08-17 06:55] LABS: Albumin* 3.8 g/dL (3.3-5.0); Chloride* 93 mmol/L (96-114); Potassium* 3.3 mmol/L (3.6-5.1); Sodium* 132 mmol/L (135-149)
[2024-08-17 06:58] LABS: Alanine Aminotransferase* 67 U/L (4-50); Alkaline Phosphatase* 114 U/L (40-150); Anion Gap 9 mEq/L (7-15); Aspartate Amino Transferase* 95 U/L (12-35); Bilirubin Total* 1.1 mg/dL (0.1-1.5); Blood Urea Nitrogen* 9 mg/dL (7-30); Carbon Dioxide* 30 mmol/L (20-32); Creatinine* 0.7 mg/dL (0.5-1.5); Estimated Glomerular Filt Rate 100 ml/min
[2024-08-17 06:59] LABS: Glucose* 97 mg/dL (60-115); Total Protein* 6.6 g/dL (6.0-8.3)
[2024-08-17 07:01] LABS: C Reactive Protein* 2.3 mg/dL (0.5-1.0)
--- NOTE | 2024-08-17 07:46 | PC.NURSE ---
[id number]: Pt alert, oriented and vitally stable. Pt utilizes bedside urinal, tolerates well. O2 sats dropped as low as 58% while sleeping, placed on 1.5 L o2 which increased sats to high 90s until pt falls back into sleep. Pt in bed, appears to be resting, call light within reach.?
[2024-08-17] MEDS: OMEPRAZOLE 20 MG CAPSULE DR PO (08:41)
[2024-08-17] MEDS: THIAMINE 100 MG TABLET 250 MG PO ×3 (09:35→21:26)
[2024-08-17] MEDS: POTASSIUM BICARB 25 MEQ EFFERVESCENT TAB PO ×2 (09:36→10:01)
[2024-08-17] MEDS: DULOXETINE HCL 20 MG CAPSULE DR 40 MG PO (09:36)
[2024-08-17] MEDS: MULTIVITAMIN/MINERALS 1 TABLET 1 TAB PO (09:36)
[2024-08-17] MEDS: FOLIC ACID 1 MG TABLET PO (09:37)
[2024-08-17] MEDS: SODIUM CHLORIDE 0.9 % (FLUSH) 10 ML SYRINGE 5 ML IVF ×2 (09:37→21:28)
[2024-08-17] MEDS: MIDODRINE HCL 5 MG TABLET PO ×2 (09:38→12:19)
--- NOTE | 2024-08-17 11:47 | P.IMPN_ITS ---
Assessment and Plan Assessment and plan (1) Orthostatic hypotension: Problem comment: - significant symptomatology, probably worsened by ETOH use - h/o similar episode in September 2023, onset during ETOH rehab (at that time, BP meds d/c and Midodrine was initiated) - Notably, [facility] d[facility] dose the week prior to admission (< 1% adverse reaction includes orthostatic hypotension) - therapies following Status: Acute (2) Syncope: Problem comment: - prior to ER arrival, had transient loss of consciousness following postural change - no PE on ER imaging, + orthostasis - no recurrence during stay - no headache or vision changes, no other neurological symptoms or deficits - TTE 08/16/24: Final Impressions: 1. Technically limited exam. 2. Normal left ventricular size, mildly increased wall thickness, normal global systolic function, calculated EF of 71 %. 3. Echo contrast was administered to enhance visualization of all left ventricular segments. 4. Right ventricular cavity size is not well visualized, global systolic RV function is normal. 5. Normal left atrium size. 6. The aortic valve is normal and trileaflet, no stenosis and no regurgitation. 7. The mitral valve is normal, trace mitral regurgitation. 8. No pericardial effusion. Status: Acute (3) Acute hypoxic respiratory failure: Problem comment: - appears acute on chronic, likely 2/2 KAREL (no evidence of acute infectious process), may have mild/early COPD given smoking history - recently broke home CPAP, will see [facility] - saturations have been as low as 50-60% during sleep, 85-90% during the day, improving - RT following Status: Acute (4) Alcoholism: Problem comment: - chronic ETOH use disorder, 2-4 vodka drinks daily - was been sober for 7 months following rehab in [place] 2023 - started drinking again in July 2024, last drink 1999 on 08/14/24 - History of DTs, no seizures - following CIWA, receiving thiamine 250mg TID, folic acid, MVI Status: Acute (5) Transaminitis: Problem comment: - elevated bilirubin (direct and indirect), AST/ALT, alk phos - CT A/P: severe hepatic steatosis, no suspicious masses - long history of ETOH overuse - hepatitis panel pending - LFTs trending downward 08/16 Status: Acute (6) PTSD (post-traumatic stress disorder): Problem comment: - [facility], on Duloxetine Status: Acute (7) Insomnia: Problem comment: - on Melatonin, Lunesta, and Cyproheptadine as an outpatient per [facility] Status: Acute Plan - likely home tomorrow if remains stable on RA and dyspnea continues to improve, considering home health Subjective Date Seen: 08/17/24 Interval history: Vance was admitted to the hospital 08/15 for severe symptomatic orthostatic hypot ension, + transient loss of consciousness at home prior to admission. Associated symptoms include worsening dyspnea on exertion, new hypoxic respiratory failure requiring supplemental oxygen. No cough, no chest pain. Reassuring VBG. Admission imaging (CTA of chest) reassuring. History of alcohol use disorder, last drink 08/14/24 at 1999. Orthostatic hypotension persists, but has improved with resumption of home Midodrine. Continues to have dyspnea on exertion, required low dose supplemental oxygen overnight. Therapies following. CIWA scores 0-3 over the past 24 hours. This morning, Vance continues to feel dyspneic with exertion, 89-90% on RA with rest. HR with activity 100-110 (sinus tachycardia). LFTs continue to trend downward, replacing K of 3.3. Exam Narrative: Exam Narrative: GEN: Alert and oriented, sitting comfortably in bed and having breakfast HEENT: EOMIs bilaterally, no scleral icterus CV: RRR, No concerning murmurs R: LCTA bilaterally without concerning wheezing, air movement adequate Ext: wwp, trace bilateral lower extremity edema Skin: No concerning skin lesions or rashes on exposed skin Neuro: Nonfocal Psych: Appropriate Const: Vital Signs, click to edit/add: Vital Signs - 24 hr 08/16/24 12:41 08/16/24 15:00 08/16/24 15:38 Temperature 98.2 F Pulse Rate Pulse Rate [Pulse Oximeter] 99 Respiratory Rate 18 18 Blood Pressure [Le ft Arm] Blood Pressure [Ri ght Arm] 146/95 H Pulse Oximetry 93 85 L 93 Oxygen Delivery Me thod Room Air Room Air Nasal Cannula Oxygen Flow Rate 1 08/16/24 20:30 08/16/24 20:33 08/16/24 23:00 Temperature Pulse Rate Pulse Rate [Pulse Oximeter] 95 95 Respiratory Rate 18 16 Blood Pressure [Le ft Arm] 114/70 Blood Pressure [Ri ght Arm] 157/100 H Pulse Oximetry 92 93 Oxygen Delivery Me thod Nasal Cannula Nasal Cannula Room Air Oxygen Flow Rate 1 1 08/16/24 23:00 08/16/24 23:00 08/16/24 23:00 Temperature Pulse Rate 95 Pulse Rate [Pulse Oximeter] 95 95 Respiratory Rate 16 16 Blood Pressure [Le ft Arm] 114/70 Blood Pressure [Ri ght Arm] Pulse Oximetry 93 Oxygen Delivery Me thod Room Air Oxygen Flow Rate 1 08/17/24 03:00 08/17/24 04:00 08/17/24 07:00 Temperature Pulse Rate 96 Pulse Rate [Pulse Oximeter] 91 Respiratory Rate 12 Blood Pressure [Le ft Arm] Blood Pressure [Ri ght Arm] Pulse Oximetry 81 L 85 L Oxygen Delivery Me thod Oxygen Flow Rate 08/17/24 07:00 08/17/24 07:00 Temperature Pulse Rate Pulse Rate [Pulse Oximeter] 103 H Respiratory Rate 20 20 Blood Pressure [Le ft Arm] Blood Pressure [Ri ght Arm] Pulse Oximetry 97 Oxygen Delivery Me thod Oxygen Flow Rate Labs Labs: Laboratory Results - last 24 hr 08/17/24 06:09 WBC 4.51 RBC 4.25 L Hgb 14.7 Hct 44.0 MCV 104 H MCH 35 H MCHC 33 RDW Coeff of Shayy 11.7 Plt Count 167 Neut % (Auto) 50.3 Lymph % (Auto) 32.6 [place] % (Auto) 9.3 Eos % (Auto) 6.7 Baso % (Auto) 0.7 Neut # (Auto) 2.27 Lymph # (Auto) 1.47 [place] # (Auto) 0.40 Eos # (Auto) 0.30 Baso # (Auto) 0.03 Abs Immat Gran (auto) 0.02 Imm/Tot Granulo (auto) 0.4 Sodium 132 L Potassium 3.3 L Chloride 93 L Carbon Dioxide 30 Anion Gap 9 BUN 9 Creatinine 0.7 Estimated Creat Clear 75.30 Estimated GFR 100 Glucose 97 Calcium 9.0 Total Bilirubin 1.1 AST 95 H ALT 67 H Alkaline Phosphatase 114 C-Reactive Protein 2.3 H Total Protein 6.6 Albumin 3.8
--- NOTE | 2024-08-17 16:07 | PC.SOCIAL ---
Addendum entered by MITZI Wharton 08/17/24 16:43: Discharge plan: If MD orders home care, pt is requesting this be arranged with any available home care agency. Pt states he [facility] not know [facility] that [facility] through. Pt states that if home care is needed, he would rather have the [facility] for this through his [facility] than for [facility] to [facility] through [facility] to [facility]. Called [facility] [phone] and spoke with intake who looked pt's Medicare insurance up in the system and stated he should not have a co-pay for home health if he has met his deductible. [facility] has availability to start on 08/21/24 for RN,PT and OT for this patient if ordered at discharge. No information has yet been sent to [facility] care. If home care is ordered by MD at discharge, please fax [id number] (including statement by physician that starting on 08/21/24 is acceptable) and discharge orders to [facility] at [phone]. Original Note: Discharge plan: Met with pt this morning regarding his request for retirement placement at discharge. Provided pt with list of snf facilities contracted with his insurance. Pt states he wanted any facility as close as possible to his home. networker was later informed pt does not meet criteria for retirement rehab and that he is discharging home tomorrow. Met with pt and confirmed this plan.
--- NOTE | 2024-08-17 18:56 | PC.NURSE ---
Addendum entered by Anabella Ross RN 08/17/24 19:32: Helo PM midordrine d/t pt continue to lay in bed, napping intermittently. BP > 120 systolic. [facility] says ok to hold. Original Note: Nursing Care Hours: [id number] Pt this shift calm and cooperative. Alert and oriented. CIWA continue to score low to nothing. VSS. Incontinent void in bed. Linens and gown changed. Tolerated Ax1 with walker and gait belt into chair for breakfast. BP remained stable while sitting up. Cooperative with therapies. Refused to sit up for lunch and dinner. Pt educated on medicine for hypotension and needing to sit up instead of laying down during the day. No c/o pain
[2024-08-17] MEDS: CYPROHEPTADINE HCL 4 MG TABLET 2 MG PO (21:25)
[2024-08-17] MEDS: ENOXAPARIN 40 MG/0.4 ML INJ SUBCUT (21:26)
[2024-08-17] MEDS: MAGNESIUM OXIDE 400 MG TABLET PO (21:26)
[2024-08-17] MEDS: MELATONIN 3 MG TABLET 6 MG PO (21:27)
[2024-08-18] VITALS (10 sets, daily range): BP systolic 91–139; BP diastolic 63–91; PULSE 86–115; RESP 14–21; TEMP 36.5–37.4; O2SAT 56–93
[2024-08-18 06:55] LABS: Albumin* 3.6 g/dL (3.3-5.0); Chloride* 93 mmol/L (96-114); Potassium* 3.9 mmol/L (3.6-5.1); Sodium* 133 mmol/L (135-149)
[2024-08-18 06:57] LABS: Blood Urea Nitrogen* 13 mg/dL (7-30); Creatinine* 0.7 mg/dL (0.5-1.5); Estimated Glomerular Filt Rate 100 ml/min
[2024-08-18 06:58] LABS: Alanine Aminotransferase* 58 U/L (4-50); Alkaline Phosphatase* 103 U/L (40-150); Anion Gap 6 mEq/L (7-15); Aspartate Amino Transferase* 78 U/L (12-35); Bilirubin Total* 0.9 mg/dL (0.1-1.5); Calcium* 9.2 mg/dL (8.4-10.6); Carbon Dioxide* 34 mmol/L (20-32); Glucose* 104 mg/dL (60-115); Magnesium* 1.1 mg/dL (1.5-2.6); Total Protein* 6.3 g/dL (6.0-8.3)
--- NOTE | 2024-08-18 07:26 | PC.NURSE ---
Pt alert, oriented and vitally stable. Pt utilizes bedside urinal, tolerates well. O2 sats dropped as low as 58% while sleeping, placed on 1.5 L o2. Pt in bed, appears to be resting, call light within reach.
[2024-08-18] MEDS: MULTIVITAMIN/MINERALS 1 TABLET 1 TAB PO (08:53)
[2024-08-18] MEDS: MIDODRINE HCL 5 MG TABLET PO ×3 (08:53→17:40)
[2024-08-18] MEDS: OMEPRAZOLE 20 MG CAPSULE DR PO (08:53)
[2024-08-18] MEDS: FOLIC ACID 1 MG TABLET PO (08:53)
[2024-08-18] MEDS: SODIUM CHLORIDE 0.9 % (FLUSH) 10 ML SYRINGE 5 ML IVF ×2 (08:53→21:47)
[2024-08-18] MEDS: DULOXETINE HCL 20 MG CAPSULE DR 40 MG PO (08:53)
[2024-08-18] MEDS: THIAMINE 100 MG TABLET 250 MG PO ×3 (10:45→21:45)
[2024-08-18] MEDS: MAGNESIUM IV 2 GM/50 ML PIGGYBACK IVPB (11:58)
[2024-08-18 16:10] LABS: Chloride* 92 mmol/L (96-114)
[2024-08-18 16:11] LABS: Potassium* 4.3 mmol/L (3.6-5.1); Sodium* 130 mmol/L (135-149)
[2024-08-18 16:14] LABS: Anion Gap 5 mEq/L (7-15); Blood Urea Nitrogen* 16 mg/dL (7-30); Calcium* 9.1 mg/dL (8.4-10.6); Carbon Dioxide* 33 mmol/L (20-32); Creatinine* 0.9 mg/dL (0.5-1.5); Estimated Glomerular Filt Rate 93 ml/min; Glucose* 126 mg/dL (60-115); Magnesium* 1.6 mg/dL (1.5-2.6)
--- NOTE | 2024-08-18 16:27 | PM.IMPN1 ---
Assessment and Plan Assessment and plan (1) Hypotension: Problem comment: Previously treated for hypertension, now on midodrine for chronic hypotension. This will likely continue to be a problem for him. Likely related to severe liver disease. Status: Acute (2) Alcoholism: Problem comment: - chronic ETOH use disorder, 2-4 vodka drinks daily - was been sober for 7 months following rehab in [place] 2023 - started drinking again in July 2024, last drink 1999 on 08/14/24 - History of DTs, no seizures - following CIWA, receiving thiamine 250mg TID, folic acid, MVI No significant problems with withdrawal Status: Acute (3) Weakness: Problem comment: Very sedentary Status: Acute (4) Physical deconditioning: Problem comment: Very sedentary Status: Acute (5) Syncope: Problem comment: Uncertain if this is syncope related to a black out from drinking verses orthostatic syncope from his hypotension. - prior to ER arrival, had transient loss of consciousness following postural change - no PE on ER imaging, + orthostasis - no recurrence during stay - no headache or vision changes, no other neurological symptoms or deficits - TTE 08/16/24: Final Impressions: 1. Technically limited exam. 2. Normal left ventricular size, mildly increased wall thickness, normal global systolic function, calculated EF of 71 %. 3. Echo contrast was administered to enhance visualization of all left ventricular segments. 4. Right ventricular cavity size is not well visualized, global systolic RV function is normal. 5. Normal left atrium size. 6. The aortic valve is normal and trileaflet, no stenosis and no regurgitation. 7. The mitral valve is normal, trace mitral regurgitation. 8. No pericardial effusion. Status: Acute (6) Hypokalemia: Problem comment: Likely related alcohol abuse. Replace Status: Acute (7) Hypomagnesemia: Problem comment: Likely related to alcohol abuse. Continue to replace. Status: Acute Plan Continue in hospital for correction of electrolytes and evaluation management of deconditioning and orthostatic symptoms. Discussed in some detail today that he has a high risk patient due to the complications of his chronic liver disease and ongoing alcohol abuse. Anticipate discharge to home tomorrow. Total Time Spent Total Time Spent: Total time spent today is 55 minutes in reviewing records, coordination of care, discussing with patient other providers ongoing management of hypotension, alcohol use disorder, liver disease. Subjective Date Seen: 08/18/24 Interval history: Admission HPI: Vance Bustillo is a 69 year old male past medical history significant for hypotension, alcoholism, hyperlipidemia, PTSD, GERD is admitted to the medical floor from the ED for further management severe orthostatic hypotension, unsafe to discharge to home. Patient reports feeling unwell approximately 3 days ago. Tells me his PTSD escalated. Denies increased alcohol use over the past 3 days. Poor oral intake. Increased fatigue. Has not taken any of his medications today. Was feeling lightheaded this morning upon standing and actually blacked out. EMS was called and when they placed him into a chair he had a no other syncopal episode. Denies any injury with these events today. Feels dry and dehydrated. Has continued to drink daily. Currently, denies headache or dizziness while lying flat. Lightheaded episodes occur only with positional changes and resolve when he lies down again. He has had these in the past on occasion. Is currently on midodrine. No significant syncopal history however. Denies recent fevers or chills. Denies recent chest pain. Has been more short of breath than usual, specifically with exertion. Can only walk approximately 10 ft before needing to take a break. Used to be able to walk 1 city block. Active smoker, having quit 3 days ago. Smoker. Daily alcohol use - vodka, 2-4 drinks. PCP is the [facility]. Wishes to be a full code Patient reports today still feeling quite light headed and having low blood pressure when he got up. Exam Narrative: Exam Narrative: He is alert and oriented appears in no distress. Respirations are clear to auscultation. Cardiovascular: S1, S2, regular rate and rhythm. Abdomen: Bowel sounds are present. Abdomen is soft. He has right upper quadrant firmness possible hepatomegaly. No peritonitis. Const: Vital Signs, click to edit/add: Vital Signs - 24 hr 08/17/24 19:00 08/17/24 20:00 08/17/24 23:00 Temperature 97.9 F Pulse Rate [Pulse Oximeter] 66 66 Respiratory Rate 16 16 Blood Pressure [Le ft Arm] 162/86 H Pulse Oximetry 95 92 Oxygen Delivery Me thod Room Air Room Air 08/17/24 23:00 08/18/24 03:00 08/18/24 04:00 Temperature Pulse Rate [Pulse Oximeter] 95 Respiratory Rate 16 14 Blood Pressure [Le ft Arm] 146/90 H Pulse Oximetry 91 56 L 88 Oxygen Delivery Me thod Room Air Nasal Cannula 08/18/24 09:00 08/18/24 09:00 08/18/24 11:00 Temperature 98.1 F 98.1 F 97.8 F Pulse Rate [Pulse Oximeter] 99 99 88 Respiratory Rate 20 20 18 Blood Pressure [Le ft Arm] 110/65 110/65 139/91 H Pulse Oximetry 91 91 93 Oxygen Delivery Me thod Room Air Room Air Room Air 08/18/24 12:00 Temperature Pulse Rate [Pulse Oximeter] Respiratory Rate 18 Blood Pressure [Le ft Arm] Pulse Oximetry 93 Oxygen Delivery Me thod Room Air Documenting provider has reviewed patient's vital signs: yes Labs Labs: Laboratory Results - last 24 hr 08/18/24 08/18/24 05:52 15:49 Sodium 133 L 130 L Potassium 3.9 4.3 Chloride 93 L 92 L Carbon Dioxide 34 H 33 H Anion Gap 6 L 5 L BUN 13 16 Creatinine 0.7 0.9 Estimated Creat Clear 75.30 75.30 Estimated GFR 100 93 Glucose 104 126 H Calcium 9.2 9.1 Magnesium 1.1 L 1.6 Total Bilirubin 0.9 AST 78 H ALT 58 H Alkaline Phosphatase 103 Total Protein 6.3 Albumin 3.6
--- NOTE | 2024-08-18 16:32 | PC.NURSE ---
Shift Summary: Patient pleasant and cooperative. Up with one assist, walker and gait belt. BP dropped while working with therapy and patient became symptomatic, recovered quickly once back in bed, vitals otherwise stable and WNL. Has been up in chair for meals. x1 incontinence during day. Denies pain or SOB. O2 sats >90% on RA.
--- NOTE | 2024-08-18 19:15 | PC.NURSE ---
Nursing Care Hours: [id number] Pt this shift calm and cooperative, alert and oriented. No c/o pain. VSS while supine in bed. Discussed goals of sitting up in chair and going for short walks throughout the day and pt agreeable. Went for walk with walker and gait belt Ax1 and pt asymptomatic. Up in chair for dinner. Pt did request to use toilet independently. policy writer watched pt use walker and walk to BR independently. Gait steady, denied dizziness or lightheadedness. checked orthostatic BP and pt only c/o was feeling nauseous upon standing. BP did decrease 31% from lying to standing. D/t orthostatics, policy writer instructed pt to call for SB assist to BR. Foul urine odor from pt, but pt declined shower.
[2024-08-18] MEDS: CYPROHEPTADINE HCL 4 MG TABLET 2 MG PO (21:46)
[2024-08-18] MEDS: ENOXAPARIN 40 MG/0.4 ML INJ SUBCUT (21:46)
[2024-08-18] MEDS: MAGNESIUM OXIDE 400 MG TABLET PO (21:46)
[2024-08-18] MEDS: MELATONIN 3 MG TABLET 6 MG PO (21:51)
[2024-08-19 02:00] VITALS: BP 120/93; PULSE 91; RESP 16; TEMP 36.8; O2SAT 91
[2024-08-19 03:00] VITALS: BP 120/93; PULSE 91; RESP 16; TEMP 36.8; O2SAT 91
[2024-08-19 04:00] VITALS: O2SAT 91
--- NOTE | 2024-08-19 04:32 | PC.NURSE ---
Shift note ([id number]: Patient alert and oriented. Denied pain. Ambulated to bathroom with walker and assist of one. No reports of dizziness. Continues to be tachycardic in low 100?s. ?
[2024-08-19 06:00] VITALS: BP 120/80; BP 138/85; BP 98/69; PULSE 89; PULSE 90; PULSE 93; PULSE 97; RESP 22; TEMP 36.9; O2SAT 93
[2024-08-19 07:15] LABS: Albumin* 3.7 g/dL (3.3-5.0); Chloride* 93 mmol/L (96-114)
[2024-08-19 07:16] LABS: Sodium* 132 mmol/L (135-149)
[2024-08-19 07:18] LABS: Alanine Aminotransferase* 60 U/L (4-50); Alkaline Phosphatase* 111 U/L (40-150); Anion Gap 5 mEq/L (7-15); Aspartate Amino Transferase* 83 U/L (12-35); Bilirubin Total* 0.6 mg/dL (0.1-1.5); Blood Urea Nitrogen* 19 mg/dL (7-30); Carbon Dioxide* 34 mmol/L (20-32); Creatinine* 0.9 mg/dL (0.5-1.5); Estimated Glomerular Filt Rate 93 ml/min; Total Protein* 6.5 g/dL (6.0-8.3)
[2024-08-19 07:19] LABS: Calcium* 9.4 mg/dL (8.4-10.6); Glucose* 109 mg/dL (60-115); Magnesium* 1.4 mg/dL (1.5-2.6)
[2024-08-19] MEDS: OMEPRAZOLE 20 MG CAPSULE DR PO (08:08)
[2024-08-19 08:30] VITALS: BP 136/86; PULSE 87; RESP 18; TEMP 36.6; O2SAT 91
[2024-08-19 08:56] VITALS: BP 136/86; PULSE 87; RESP 18; TEMP 36.6; O2SAT 91
[2024-08-19] MEDS: MAGNESIUM IV 2 GM/50 ML PIGGYBACK IVPB (09:12)
[2024-08-19] MEDS: POTASSIUM CHLORIDE 10 MEQ CAPSULE ER PO (09:12)
[2024-08-19] MEDS: FOLIC ACID 1 MG TABLET PO (09:12)
[2024-08-19] MEDS: MIDODRINE HCL 5 MG TABLET PO (09:12)
[2024-08-19] MEDS: MULTIVITAMIN/MINERALS 1 TABLET 1 TAB PO (09:12)
[2024-08-19] MEDS: DULOXETINE HCL 20 MG CAPSULE DR 40 MG PO (09:12)
[2024-08-19] MEDS: SODIUM CHLORIDE 0.9 % (FLUSH) 10 ML SYRINGE 5 ML IVF (09:14)
[2024-08-19] MEDS: THIAMINE 100 MG TABLET 250 MG PO (10:35)
--- NOTE | 2024-08-19 13:01 | P.DS_ITS ---
DS: Providers Provider Date Seen: 08/19/24 Date of admission: 08/15/24 23:29 Primary care physician: Not a Local Provider Admitting Clinician: Sandhya Tan MD Attending Physician on discharge: Vasu Leon MD Date of Discharge: 08/19/24 DS: Diagnosis Discharge Diagnosis (1) Syncope: Status: Acute Problem details: During hospital stay he has had no recurrent episodes of syncope but continues to have some symptoms of orthostatic hypotension. Uncertain if this is syncope related to a black out from drinking verses orthostatic syncope from his hypotension. - prior to ER arrival, had transient loss of consciousness following postural change - no PE on ER imaging, + orthostasis - no recurrence during stay - no headache or vision changes, no other neurological symptoms or deficits - TTE 08/16/24: Final Impressions: 1. Technically limited exam. 2. Normal left ventricular size, mildly increased wall thickness, normal global systolic function, calculated EF of 71 %. 3. Echo contrast was administered to enhance visualization of all left ventricular segments. 4. Right ventricular cavity size is not well visualized, global systolic RV function is normal. 5. Normal left atrium size. 6. The aortic valve is normal and trileaflet, no stenosis and no regurgitation. 7. The mitral valve is normal, trace mitral regurgitation. 8. No pericardial effusion. (2) Orthostatic hypotension: Status: Acute Problem details: - significant symptomatology, probably worsened by ETOH use - h/o similar episode in September 2023, onset during ETOH rehab (at that time, BP meds d/c and Midodrine was initiated) - Notably, [facility] doubled his duloxetine dose the week prior to admission (< 1% adverse reaction includes orthostatic hypotension) - therapies following Continues to have orthostatic hypotension during his hospital stay while taking midodrine. Recommend outpatient follow-up with [facility] medical provider for further evaluation and treatment. Abstain from alcohol (3) Alcoholism: Status: Acute Problem details: - chronic ETOH use disorder, 2-4 vodka drinks daily - was been sober for 7 months following rehab in [place] 2023 - started drinking again in July 2024, last drink 1999 on 08/14/24 - History of DTs, no seizures - following CIWA, receiving thiamine 250mg TID, folic acid, MVI No significant problems with withdrawal (4) Hepatic steatosis: Status: Acute Problem details: 01/30/2023 CT abdomen and pelvis: Severe diffuse hepatic steatosis. (5) PTSD (post-traumatic stress disorder): Status: Acute Problem details: - [facility], [facility] (6) Insomnia: Status: Acute Problem details: - on Melatonin, Lunesta, and Cyproheptadine [facility] an outpatient per [facility] (7) Hypomagnesemia: Status: Acute Problem details: Likely related to alcohol abuse. Increase oral magnesium replacement (8) Hypokalemia: Status: Acute Problem details: Likely related alcohol abuse. Add potassium replacement. DS: Summary Hospital Course Hospital Course: Interval history: Admission HPI: Vance Bustillo is a 69 year old male past medical history significant for hypotension, alcoholism, hyperlipidemia, PTSD, GERD is admitted to the medical floor from the ED for further management severe orthostatic hypotension, unsafe to discharge to home. Patient reports feeling unwell approximately 3 days ago. Tells me his PTSD escalated. Denies increased alcohol use over the past 3 days. Poor oral intake. Increased fatigue. Has not taken any of his medications today. Was feeling lightheaded this morning upon standing and actually blacked out. EMS was called and when they placed him into a chair he had a no other syncopal episode. Denies any injury with these events today. Feels dry and dehydrated. Has continued to drink daily. Currently, denies headache or dizziness while lying flat. Lightheaded episodes occur only with positional changes and resolve when he lies down again. He has had these in the past on occasion. Is currently on midodrine. No significant syncopal history however. Denies recent fevers or chills. Denies recent chest pain. Has been more short of breath than usual, specifically with exertion. Can only walk approximately 10 ft before needing to take a break. Used to be able to walk 1 city block. Active smoker, having quit 3 days ago. Smoker. Daily alcohol use - vodka, 2-4 drinks. PCP is the [facility]. Wishes to be a full code Patient reports today still feeling quite light headed and having low blood pressure when he got up. Nursing notes show consistent orthostatic hypotension from moving from supine to standing. No syncope. He is eating normally. No chest pain or shortness of breath. Status at Discharge Overall status at discharge: patient is progressing back to baseline Time Spent with Patient Time attestation: Total time spent providing and/or coordinating discharge services: Time spent: Greater than 30 minutes Exam Narrative: Exam Narrative: He is alert and appears in no distress. He is observed to walk with a walker. Orthostatic vitals as noted Const: Vital Signs, click to edit/add: Vital Signs - 24 hr 08/18/24 15:00 08/18/24 15:00 08/18/24 15:00 Temperature 98.8 F 98.8 F Pulse Rate [Pulse Oximeter] 88 88 88 Pulse Rate [orthos tatic lying] Pulse Rate [orthos tatic sitting] Pulse Rate [orthos tatic standing] Respiratory Rate 20 20 20 Blood Pressure [Le ft Arm] 131/83 131/83 Blood Pressure [or thostatic lying Ri ght Arm] Blood Pressure [or thostatic sitting] Blood Pressure [or thostatic standing ] Pulse Oximetry 91 91 Oxygen Delivery Me thod Room Air Room Air Oxygen Flow Rate 2 08/18/24 19:00 08/18/24 19:08 08/18/24 20:00 Temperature 99.3 F Pulse Rate [Pulse Oximeter] 98 Pulse Rate [orthos tatic lying] 86 Pulse Rate [orthos tatic sitting] 115 H Pulse Rate [orthos tatic standing] 113 H Respiratory Rate 21 21 Blood Pressure [Le ft Arm] 121/63 Blood Pressure [or thostatic lying Ri ght Arm] 132/76 Blood Pressure [or thostatic sitting] 115/75 Blood Pressure [or thostatic standing ] 91/64 Pulse Oximetry 92 92 Oxygen Delivery Me thod Room Air Room Air Oxygen Flow Rate 08/18/24 22:57 08/19/24 02:00 08/19/24 03:00 Temperature 97.7 F 98.3 F 98.3 F Pulse Rate [Pulse Oximeter] 91 91 Pulse Rate [orthos tatic lying] Pulse Rate [orthos tatic sitting] Pulse Rate [orthos tatic standing] Respiratory Rate 21 16 16 Blood Pressure [Le ft Arm] 116/68 120/93 H 120/93 H Blood Pressure [or thostatic lying Ri ght Arm] Blood Pressure [or thostatic sitting] Blood Pressure [or thostatic standing ] Pulse Oximetry 90 91 91 Oxygen Delivery Me thod Room Air Nasal Cannula Room Air Oxygen Flow Rate 1.5 1.5 08/19/24 04:00 08/19/24 06:00 08/19/24 06:00 Temperature 98.4 F Pulse Rate [Pulse Oximeter] 89 Pulse Rate [orthos tatic lying] 90 Pulse Rate [orthos tatic sitting] 93 Pulse Rate [orthos tatic standing] 97 Respiratory Rate 22 Blood Pressure [Le ft Arm] 120/80 Blood Pressure [or thostatic lying Ri ght Arm] 138/85 Blood Pressure [or thostatic sitting] 120/80 Blood Pressure [or thostatic standing ] 98/69 Pulse Oximetry 91 93 Oxygen Delivery Me thod Nasal Cannula Room Air Oxygen Flow Rate 1.5 08/19/24 08:30 08/19/24 08:56 Temperature 97.8 F 97.8 F Pulse Rate [Pulse Oximeter] 87 87 Pulse Rate [orthos tatic lying] Pulse Rate [orthos tatic sitting] Pulse Rate [orthos tatic standing] Respiratory Rate 18 18 Blood Pressure [Le ft Arm] 136/86 136/86 Blood Pressure [or thostatic lying Ri ght Arm] Blood Pressure [or thostatic sitting] Blood Pressure [or thostatic standing ] Pulse Oximetry 91 91 Oxygen Delivery Me thod Room Air Room Air Oxygen Flow Rate Documenting provider has reviewed patient's vital signs: yes DS: Data Data Completed and Pending Labs on day of discharge: Labs from last 24 hours 08/19/24 08/18/24 05:49 15:49 Sodium 132 L 130 L Potassium 4.0 4.3 Chloride 93 L 92 L Carbon Dioxide 34 H 33 H Anion Gap 5 L 5 L BUN 19 16 Creatinine 0.9 0.9 Estimated Creat Clear 75.30 75.30 Estimated GFR 93 93 Glucose 109 126 H Calcium 9.4 9.1 Magnesium 1.4 L 1.6 Total Bilirubin 0.6 AST 83 H ALT 60 H Alkaline Phosphatase 111 Total Protein 6.[address] scan - abdomen: Radiologist's impression: INDICATION: Abdominal pain. TECHNIQUE: CT abdomen and pelvis acquired with 100 cc Omnipaque 350 IV contrast. COMPARISON: January 30, 2023. FINDINGS: Lower chest: Scattered atelectasis. Small hiatal hernia containing some fluid, also seen on prior study. Liver: Severe hepatic steatosis. No suspicious masses. Gallbladder and bile ducts: Unremarkable. No stones or inflammation. No biliary dilatation. Pancreas: Unremarkable. No mass or inflammation. Spleen: Unremarkable. Normal in size. No masses. Adrenal glands: Unremarkable. No nodules. Kidneys: Unremarkable. No suspicious masses, stones, or hydronephrosis. GI tract: Unremarkable. Normal in caliber. No sign of mass or inflammation. Normal appendix. Vasculature: Trace aortoiliac arterial calcifications. Abdominal aorta is normal in caliber. Mesenteric arteries are patent. Lymph nodes: No lymphadenopathy. Peritoneum/Abdominal Wall: Unremarkable. No sign of mass or infiltration. No free air or significant free fluid. Pelvis: Unremarkable. Bones: Chronic pelvic osseous deformities. Chronic T11 deformity. Chronic bilateral rib deformities. IMPRESSION: No acute intra-abdominal/pelvic abnormality. Hepatic steatosis. CT scan - chest: Radiologist's impression: INDICATION: Tachycardia. TECHNIQUE: CT chest PE was acquired with 95 cc Isovue 370 IV contrast. MIP reconstructions were performed. COMPARISON: None. FINDINGS: Heart and vasculature: Contrast opacification of the pulmonary arterial tree is adequate. No sign of pulmonary embolism. Heart size is normal. Coronary artery calcifications. Thoracic aorta and pulmonary artery are normal in caliber. Lungs and pleura: No suspicious nodules or infiltrates. Scattered atelectasis. No pleural effusions, pleural thickening, or pneumothorax. Lymph nodes/mediastinum: Small hiatal hernia with fluid. No mediastinal, hilar, or axillary adenopathy. Chest wall: No masses. Upper abdomen: Hepatic steatosis. No acute or significant findings. Bones: Age-indeterminate mild T4 compression deformity. Recommend correlation with point tenderness. Chronic T11 compression deformity. Chronic bilateral rib fractures. IMPRESSION: No pulmonary embolism. No focal consolidations. Coronary artery calcifications. Small hiatal hernia with fluid of indeterminate clinical significance, and also seen on prior study. Echo: Radiologist's impression: [facility] cardiology interpretation 08/16/2024 Final Impressions: 1. Technically limited exam. 2. Normal left ventricular size, mildly increased wall thickness, normal global systolic function, calculated EF of 71 %. 3. Echo contrast was administered to enhance visualization of all left ventricular segments. 4. Right ventricular cavity size is not well visualized, global systolic RV function is normal. 5. Normal left atrium size. 6. The aortic valve is normal and trileaflet, no stenosis and no regurgitation. 7. The mitral valve is normal, trace mitral regurgitation. 8. No pericardial effusion. Discharge Plan Discharge Disposition: Home, Self-Care Date of Admission: 08/15/24 23:29 Attending Provider on Discharge: Gideon Leon Primary Care Provider: Provider,Not a Local Condition: Improved Anticipated Discharge Date/Time: 08/18/24 13:15 Discharge Medications: New potassium chloride 10 mEq tablet extended release 10 meq PO DAILY Qty: 30 2RF Continued omeprazole 20 mg capsule,delayed release(DR/EC) 20 mg PO BID eszopiclone 3 mg tablet 3 mg PO HS PRN folic acid 1 mg Tablet 1 mg PO DAILY Qty: 30 0RF acetaminophen 500 mg tablet 500 mg PO BID cholecalciferol (vitamin D3) 25 mcg (1,000 unit) capsule 2,000 unit PO DAILY cyanocobalamin (vitamin B-12) 1,000 mcg tablet 1,000 mcg PO DAILY cyproheptadine 4 mg tablet 2 mg PO HS duloxetine [Cymbalta] 20 mg capsule,delayed release(DR/EC) 40 mg PO DAILY melatonin 3 mg capsule 6 mg PO HS PRN midodrine 5 mg tablet 5 mg PO TID@09,12,17 thiamine mononitrate (vit B1) [Vitamin B-1 (mononitrate)] 100 mg Tablet 100 mg PO DAILY Changed magnesium oxide 420 mg tablet 420 mg PO BID Qty: 60 0RF Discharge Orders: Discharge Order (Routine); Ordered 08/19/24 Ordered By: Gideon Leon Patient Education: Potassium Chloride (By mouth), Dehydration (ED), Abuse of Alcohol (DC) Additional Instructions: Keep the appointment you have later this month with your PCP at the [facility]. You should call them before the appointment and let them know you need a new CPAP machine. They can also arrange home care if you choose. It would be VERY good for your health to stop drinking alcohol - you have liver damage from drinking. This is hard to do and often requires the support of others. Please contact addiction resources or talk to the [facility] about this. Wear the MICHELLE stockings daily Activity Level: Activity as Tolerated Discharge Diet: Regular Follow Up Appointments: Provider,Not a Local [Primary Care Provider] - (pt already has an [facility] mid[facility]August check basic metabolic panel and magnesium at follow up appointment. Recheck orthostatic hypotension.) Forms: [employer] Info Instructions
--- NOTE | 2024-08-19 14:28 | PC.NURSE ---
Shift Summary: Patient pleasant and cooperative. Up with SBA and walker. Vitals stable and WNL. Tolerating regular diet. Discussed discharge instructions with patient, reviewed new medication and med list, answered questions as needed. Patient reminded of [facility] and to address need for home care. TEDs applied prior to discharge and patient sent home with 2 extra pairs, discussed how to care for TEDs, patient stated he's familiar since he's had them before. IV removed with catheter intact. Patients friend to drive home, discharged @ 1409.
[2024-08-19 20:51] LABS: Hep A Ab, IgM Negative (Negative); Hep B Core Ab, IgM Negative (Negative); Hep B Surface Antigen Negative (Negative); Hep C Ab by CIA Index 0.08 IV; Hep C Ab by CIA Interp Negative (Negative)
== END 2024-08-19 14:09 | disposition home or self-care (01) | DRG 312 ==
LOC: ED 16:45 → MEDSURG 21:53
PROVIDERS: Family Medicine; Admitting Provider Physician Assistant; Emergency Provider Emergency Medicine Emergency Medical Services; Visit Provider Family Medicine
DX: R55 Syncope and collapse (principal); J96.01 Acute respiratory failure with hypoxia; I95.1 Orthostatic hypotension; K76.0 Fatty (change of) liver, not elsewhere classified; K70.9 Alcoholic liver disease, unspecified; F10.20 Alcohol dependence, uncomplicated; Y90.2 Blood alcohol level of 40-59 mg/100 ml; R74.01 Elevation of levels of liver transaminase levels; I95.9 Hypotension, unspecified; F43.10 Post-traumatic stress disorder, unspecified; G47.00 Insomnia, unspecified; K21.9 Gastro-esophageal reflux disease without esophagitis; E78.5 Hyperlipidemia, unspecified; Z72.0 Tobacco use; R53.1 Weakness; E87.6 Hypokalemia; E83.42 Hypomagnesemia
CPT/HCPCS: 36415; 71275; 74177; 80048; 80053; 80074; 80076; 80306; 81001; 82077; 82803; 83605; 83690; 83735; 84443; 84484; 85025; 85027; 85379; 85651; 86140; 87086; 87631; 93005; 93306; 94761; 97110; 97116; 97161; 97165; 97530; 97535; 99284; 99285; A9153; A9270; J1650; J2405; J2470; J3411; J3475; J7030; Q9957; Q9967

== ENCOUNTER 2024-10-24 10:37 | Outpatient (CLI) | payer MEDICARE, OTHER, SELFPAY | END 2024-10-24 10:38 | disposition home or self-care (01) | LOC: AMB 10-26 08:40 | PROVIDERS: Visit Provider Family Medicine | DX: R42 Dizziness and giddiness (principal); R53.1 Weakness; R11.0 Nausea | CPT/HCPCS: A0425; A0427 ==

== ENCOUNTER 2024-10-24 11:21 | Emergency (ER) | payer MEDICARE, OTHER, SELFPAY ==
--- OUTSIDE RECORDS SUMMARY | 2023-10-26 06:00 | XMS_ITS | Encounter Summary ---
Author Name [facility] [place] Organization [facility] [place] Address [address], [place] [address] Care Team Providers Care Fur Designer Name Role Phone BRIJESH HENDERSON Primary Care Provider Unav ailable Insurance Providers: All historical and current Section Date Range: From patient's date of to the date document was created. This section includes the names of all active insurance providers for the patient. Insurance Provider Type of Coverage Plan Name Start of Policy Coverage End of Policy Coverage Group Number Member ID Insurance Provider's Telephone Number Policy Hurt's Name Patient's Relationship to Policy Hurt [facility] (WNR) MEDICARE ADVANTAGE MCR ([facility] May 16, 2023 [id number] JEAN JAIN IN PATIENT [facility] (WNR) MEDICARE ADVANTAGE [facility] ([facility]) May 16, 2023 [id number] JEAN JAIN IN PATIENT Selected Encounter This section includes the information on record at [place] for the Encounter. Date/Time Encounter Type Encounter Description Reason Provider Source Oct 26, 2023 11:00 AM [facility] ICD-10-CM F10.10 Alcohol abuse, uncomplicated KREMERS,REINALDO S IHE Encounter Template Text not used by [facility] Assessments - Encounter Diagnoses This section includes the primary and secondary diagnoses documented for the Encounter. Date/Time Primary/Secondary Diagnosis Diagnosis Name Provider Source Oct 26, 2023 01:32 PM PRIMARY Alcohol abuse, uncomplicated REINALDO DESHPANDE [facility] Plan of Treatment: Future Appointments (+ 6 months) and Future Tests (+/- 45 days) The Plan of Treatment section includes future care activities for the patient [facility] [place] [facility] This section includes future appointments and future orders which are active, pending or scheduled. Future Appointments This section includes appointments that were scheduled to occur 6 months from the date of the Encounter, up to a maximum of 20 appointments. The data comes from all [facility]. Appointment Date/Time Appointment Type Appointme nt Facility Name Oct 27, 2023 11:00 AM AMBULATORY - PSYCHIATRY [facility] Oct 27, 2023 01:00 PM AMBULATORY - PSYCHIATRY [facility] Oct 28, 2023 11:00 AM AMBULATORY - PSYCHIATRY [facility] Oct 28, 2023 01:00 PM AMBULATORY - PSYCHIATRY [facility] Oct 29, 2023 01:00 PM AMBULATORY - PSYCHIATRY [facility] Oct 31, 2023 09:00 AM AMBULATORY - PSYCHIATRY [facility] Oct 31, 2023 11:00 AM AMBULATORY - PSYCHIATRY [facility] Oct 31, 2023 01:00 PM AMBULATORY - PSYCHIATRY [facility] Oct 31, 2023 02:00 PM AMBULATORY - PSYCHIATRY [facility] Nov 01, 2023 09:00 AM AMBULATORY - PSYCHIATRY [facility] Nov 01, 2023 11:00 AM AMBULATORY - PSYCHIATRY [facility] Nov 01, 2023 01:00 PM AMBULATORY - PSYCHIATRY [facility] Nov 01, 2023 02:00 PM AMBULATORY - PSYCHIATRY [facility] Nov 01, 2023 03:15 PM AMBULATORY - PSYCHIATRY [facility] Nov 01, 2023 03:15 PM AM[facility]ULATORY [place] [facility] Nov 03, 2023 09:00 AM AMBULATORY - PSYCHIATRY [facility] Nov 03, 2023 11:00 AM AMBULATORY - PSYCHIATRY [facility] Nov 03, 2023 01:40 PM AMBULATORY - PSYCHIATRY [facility] Nov 04, 2023 11:00 AM AMBULATORY - PSYCHIATRY [facility] Nov 04, 2023 01:00 PM AMBULATORY - PSYCHIATRY [facility] Active, Pending, and Scheduled Orders This section includes a listing of several types of active, pending, and scheduled orders, including clinic medications orders, diagnostic test orders, procedure orders and consult orders; where the start date of the order is 45 days before the date of the Encounter or 45 days after the date of theEncounter. The data comes from all [facility]. Test Date/Time Test Type Test Details Facility Name September 23, 2023 12:52 PM Laboratory - Microbiology Order GRAM STAIN SPUTUM WC ONCE [facility] September 23, 2023 12:52 PM Laboratory - Microbiology Order CULTURE & SUSCEPTIBILITY SPUTUM WC ONCE [facility] September 29, 2023 05:30 AM Laboratory - Blood Bank Order TYPE & SCREEN - LAB BLOOD LC [facility] Lab Results: +/- 30 days [...] Type Result - Unit Interpretation Reference Range Specimen Type Comment Nov 07, 2023 06:42 AM [facility] ([place]) DRUG SCREEN PANEL, SEMI-QUANT URINE URINE Spe cimen Type: URINE Comment: Screening results should not be used for non-medical purposes Ordering Provider: SURINDER OMALLEY Report Released Date/Time: Nov 07, 2023 01:33 AM Reporting Lab: [address] [address] Performing Lab: [address] [address] AMPHETAMINES-URINE Negative Negative BARBITURATES-URINE Negative Negative BENZODIAZEPINES-URINE Negative Negative CANNABINOIDS-URINE Negative Negative COCAINE-URINE Negative Negative METHADONE-URINE Negative Negative OPIATES-URINE Negative Negative OXYCODONE-URINE Negative Negative ALCOHOL-URINE Negative Negative URINE CREATININE, DOA 48.6 mg/dL >20 TRAMADOL-URINE Negative Negative FENTANYL-URINE Negative Negative PHENCYCLIDINE-URINE Negative Negative Nov 03, 2023 10:05 AM [facility] ([facility]) DRUG SCREEN PANEL, SEMI-QUANT URINE URINE Specimen Type: URINE Comment: Screening results should not be used for non-medical purposes Ordering Provider: SURINDER OMALLEY Report Released Date/Time: Nov 03, 2023 12:44 AM Reporting Lab: [address] [address] Performing Lab: [address] AMPHETAMINES-URINE Negative Negative BARBITURATES-URINE Negative Negative BENZODIAZEPINES-URINE Negative Negative CANNABINOIDS-URINE Negative Negative COCAINE-URINE Negative Negative METHADONE-URINE Negative Negative OPIATES-URINE Negative Negative OXYCODONE-URINE Negative Negative ALCOHOL-URINE Negative Negative URINE CREATININE, DOA 121.8 mg/dL >20 TRAMADOL-URINE Negative Negative FENTANYL-URINE Negative Negative PHENCYCLIDINE-URINE Negative Negative Oct 24, 2023 09:20 AM [employer] [facility] ([place]) DRUG SCREEN PANEL, SEMI-QUANT URINE URINE Specimen Type: URINE Comment: Screening results should not be used for non-medical purposes Ordering Provider: SURINDER OMALLEY Report Released Date/Time: Oct 24, 2023 12:57 AM Reporting Lab: [address] Performing Lab: [address] [address] AMPHETAMINES-URINE Negative Negative BARBITURATES-URINE Negative Negative BENZODIAZEPINES-URINE Negative Negative CANNABINOIDS-URINE Negative Negative COCAINE-URINE Negative Negative METHADONE-URINE Negative Negative OPIATES-URINE Negative Negative OXYCODONE-URINE Negative Negative ALCOHOL-URINE Negative Negative URINE CREATININE, DOA 64.7 mg/dL >20 TRAMADOL-URINE Negative Negative FENTANYL-URINE Negative Negative PHENCYCLIDINE-URINE Negative Negative Oct 18, 2023 10:10 AM [facility] ([facility]) DRUG SCREEN PANEL, SEMI-QUANT URINE URINE Specimen Type: URINE Comment: Screening results should not be used for non-medical purposes Ordering Provider: SURINDER OMALLEY Report Released Date/Time: Oct 18, 2023 12:58 AM Reporting Lab: [address] Performing Lab: [address] [address] AMPHETAMINES-URINE Negative Negative BARBITURATES-URINE Negative Negative BENZODIAZEPINES-URINE Negative Negative CANNABINOIDS-URINE Negative Negative COCAINE-URINE Negative Negative METHADONE-URINE Negative Negative OPIATES-URINE Negative Negative OXYCODONE-URINE Negative Negative ALCOHOL-URINE Negative Negative URINE CREATININE, DOA 154.9 mg/dL >20 TRAMADOL-URINE Negative Negative FENTANYL-URINE Negative Negative PHENCYCLIDINE-URINE Negative Negative Oct 18, 2023 07:25 AM [facility] ([place]) MAGNESIUM PLASMA Specimen Type: PLASMA No comment entered. Ordering Provider: SURINDER OMALLEY Report Released Date/Time: October 13, 2023 09:48 AM Reporting Lab: [address] [address] Performing Lab: [address] [address] MAGNESIUM 1.6 mg/dL 1.6-2.6 October 13, 2023 06:20 AM [facility] QFTB-PANEL PLASMA Specimen Type: PLASMA Comment: A NEGATIVE result does not preclude the possibility of M. tuberculosis infection or tuberculosis disease. A false-negative results can be due to the stage of infection (e.g., specimen obtained prior to the development of cellular immune response or other immunological variables). Testing performed on Liaison Ordering Provider: SURINDER OMALLYE Report Released Date/Time: October 12, 2023 03:25 PM Reporting Lab: [address] [address] Performing Lab: [facility] [address] .QNT NIL (LIAISON) 0.04 [IU]/mL .QNT TB1-NIL LIAISON 0.05 [IU]/mL .QNT TB2-NIL LIAISON 0.01 [IU]/mL .QNT MITOGEN LIAISON 9.96 [IU]/mL .QNT FINAL INTERP NEGATIVE See Interp October 13, 2023 06:20 AM [facility] HEPATIC PANEL PLASM A Specimen Type: PLASMA Comment: Glucose results >300 mg/dL OR Total Protein >10 g/dL may interfere with Creatinine result Ordering Provider: SURINDER OMALLEY Report Released Date/Time: October 12, 2023 03:25 PM Reporting Lab: [address] [address] Performing Lab: [address] [address] PROTEIN, TOTAL 6.3 g/dL 6.0-8.2 ALBUMIN 3.2 g/dL L 3.5-5.0 TOT. BILIRUBIN 0.5 mg/dL 0.1-1.5 DIR. BILIRUBIN 0.2 mg/dL 0.0-0.5 ALKALINE PHOSPHATASE 107 U/L 40-134 AST/SGOT 22 U/L 5-40 ALT/SGPT 19 U/L 0-55 October 13, 2023 06:20 AM [facility] ([place]) CBC ([id number]) BLOOD Specimen Type: BLOOD No comment entered. Ordering Provider: SURINDER OMALLEY Report Released Date/Time: October 12, 2023 03:25 PM Reporting Lab: [address] [address] Performing Lab: [address] [address] IG% 0.5 <0.6 IG# 0.04 10*3/uL <0.10 WBC (MG0430) 7.62 10*3/uL 4.0-11.0 RBC (MG2067) 3.77 10*6/uL L 4.6-6.2 HGB (BR8619) 13.0 g/dL L 13.5-17.9 HCT (TJ4199) 38.5 L 41.0-54.0 MCV (SV5972) 102.1 fL H 80.0-100.0 MCH (AB1600) 34.5 pg H 27.0-33.0 MCHC (BX3483) 33.8 g/dL 32.0-36.5 PLT (LH2399) 269 10*3/uL 150-450 RDW-CV (VV6609) 11.4 L 11.5-14.5 MPV (EP2775) 9.0 fL L 9.4-12.4 LYMPHS % (FU9806) 39.5 15.0-45.0 LYMPHS # 3.01 10*3/uL 1.00-4.00 MONO % (GT3102) 6.7 2.0-12.0 MONO # 0.51 10*3/uL 0.10-1.00 EOS % (TY4516) 4.6 <6.0 EOS # 0.35 10*3/uL <0.50 BASO % (AN9247) 1.0 <2.0 BASO # 0.08 10*3/uL <0.20 NEUT % (QQ2966) 47.7 40.0-80.0 NEUT # 3.63 10*3/uL 2.00-7.70 NRBC (WQ5922) 0.0 <0 October 13, 2023 06:20 AM [facility] ([place]) RENAL PROFILE PLASM A Specimen Type: PLASMA Comment: Glucose results >300 mg/dL OR Total Protein >10 g/dL may interfere with Creatinine result Ordering Provider: SURINDER OMALLEY Report Released Date/Time: October 12, 2023 03:25 PM Reporting Lab: [address] [address] Performing Lab: [address] [address] CREATININE 1.0 mg/dL 0.5-1.5 UREA NITROGEN 12 mg/dL 5-23 SODIUM 141 mmol/L 136-145 POTASSIUM 3.7 mmol/L 3.5-5.0 CHLORIDE 104 mmol/L 98-107 CO2 28 meq/L 20-30 CALCIUM 8.9 mg/dL 8.4-10.4 GLUCOSE, RANDOM 92 mg/dL 70-180 EGFR (CKD-EPI 2020) 88 mL/min/{1.73_m2} >60 October 13, 2023 06:20 AM [facility] ([place]) VITAMIN D 25-HYDROXY (TOTAL) SERUM Sp ecimen Type: SERUM Comment: Total Protein results >12 g/dL may interfere with Vitamin D result Ordering Provider: SURINDER OMALLEY Report Released Date/Time: October 12, 2023 03:25 PM Reporting Lab: [address] [address] Performing Lab: [address] [address] VITAMIN D 25-HYDROXY (TOTAL) 16.1 ng/mL L 30.0-100.0 October 13, 2023 06:20 AM [facility] ([place]) MAGNESIUM PLASMA Specimen Type: PLASMA Comment: Glucose results >300 mg/dL OR Total Protein >10 g/dL may interfere with Creatinine result Ordering Provider: SURINDER OMALLEY Report Released Date/Time: October 12, 2023 03:25 PM Reporting Lab: [address] [address] Performing Lab: [address] [address] MAGNESIUM 1.3 mg/dL L 1.6-2.6 October 13, 2023 06:20 AM [facility] [employer] ([place]) HIV 1/2 ANTIGEN/ANTIBODY SERUM Specim en Type: SERUM Comment: Total Protein results > 12 g/dL may interfere with HCV result HIV-1 antigen and HIV-1/HIV-2 antibodies were not detected. If recent HIV exposure is suspected or reported, conduct HIV-1 TERI or request a new specimen and repeat the algorithm according to CDC guidelines. Total Protein results > 10 g/dL may interfere with HIV result Ordering Provider: SURINDER OMALLEY Report Released Date/Time: October 13, 2023 11:18 AM Reporting Lab: [address] [address] Performing Lab: [address] [address] HIV 1/2 ANTIGEN/ANTIBODY NONREACTIVE NON REACTIVE October 13, 2023 06:20 AM [facility] ([facility]) HEPATITIS C ANTIBODY SERUM Specimen T ype: SERUM Comment: Total Protein results > 12 g/dL may interfere with HCV result HIV-1 antigen and HIV-1/HIV-2 antibodies were not detected. If recent HIV exposure is suspected or reported, conduct HIV-1 TERI or request a new specimen and repeat the algorithm according to CDC guidelines. Total Protein results > 10 g/dL may interfere with HIV result Ordering Provider: SURINDER OMALLEY Report Released Date/Time: October 13, 2023 11:18 AM Reporting Lab: [address] [address] Performing Lab: [address] [address] HEPATITIS C ANTIBODY NONREACTIVE NONREAC TIVE October 12, 2023 04:[address] [facility] DRUG SCREEN PANEL, SEMI-QUANT URINE URINE Specimen Type: URINE Comment: Screening results should not be used for non-medical purposes Ordering Provider: SURINDER OMALLEY Report Released Date/Time: October 12, 2023 02:16 PM Reporting Lab: [address] [address] Performing Lab: [address] [address] AMPHETAMINES-URINE Negative Negative BARBITURATES-URINE Negative Negative BENZODIAZEPINES-URINE Negative Negative CANNABINOIDS-URINE Negative Negative COCAINE-URINE Negative Negative METHADONE-URINE Negative Negative OPIATES-URINE Negative Negative OXYCODONE-URINE Negative Negative ALCOHOL-URINE Negative Negative URINE CREATININE, DOA 119.1 mg/dL >20 TRAMADOL-URINE Negative Negative FENTANYL-URINE Negative Negative PHENCYCLIDINE-URINE Negative Negative October 12, 2023 02:[address] [facility] COVID-19 SCREENING PANEL (CEPHEID) NASOPHARYNX Spec imen Type: NASOPHARYNX Comment: This test has not been FDA cleared or approved. The test has been authorized by the FDA under an EUA for use by authorized laboratories. The test is only authorized for the duration of the declaration that circumstances exist justifying the authorization of emergency use of in vitro diagnostic tests for detection and/or diagnosis of COVID-19 under Section 564(b)(1) of the ACT, 21 U.S.C 360bbb-3(b)(1), unless the authorization is terminated or revoked sooner. Cepheid GeneXpert (656) [facility]. Ordering Provider: SURINDER OMALLEY Report Released Date/Time: October 11, 2023 03:03 PM Reporting Lab: [address] [address] Performing Lab: [address] COVID-19 (CEPHEID), PCR Negative Negativ e September 29, 2023 07:16 AM [facility] PHOSPHORUS PLASMA Specimen Type : PLASMA No comment entered. Ordering Provider: ANTHONY HENRY Report Released Date/Time: September 28, 2023 04:18 PM Reporting Lab: [facility] [address] Performing Lab: [facility] [address] PHOSPHORUS 3.7 mg/dL 2.3-4.7 September 29, 2023 07:16 AM [facility] COMPREHENSIVE METABOLIC PANEL+MG PLASMA Specimen Type: PLASMA No comment entered. Ordering Provider: ANTHONY HENRY Report Released Date/Time: September 28, 2023 04:18 PM Reporting Lab: [facility] [address] Performing Lab: [facility] [address] CREATININE 1.2 mg/dL 0.7-1.2 UREA NITROGEN 8 mg/dL 8-26 GLUCOSE 88 mg/dL 70-100 SODIUM 134 mmol/L L 136-145 POTASSIUM 4.2 mmol/L 3.5-5.1 CHLORIDE 99 mmol/L 98-107 CO2 25 mmol/L 22-29 CALCIUM 9.7 mg/dL 8.4-10.2 PROTEIN,TOTAL 6.5 g/dL 6.0-8.3 ALBUMIN 3.5 g/dL 3.5-5.2 BILIRUBIN, TOTAL 0.4 mg/dL 0.2-1.2 MAGNESIUM 1.9 mg/dL 1.6-2.6 ANION GAP 10 mmol/L 5-15 ALKALINE PHOSPHATASE 124 U/L 40-150 ALT/SGPT 33 U/L <55 AST/SGOT 33 U/L <34 .CREAT EGFR(CKD-EPI) 66 >60 September 29, 2023 07:15 AM [facility] CBC & DIFF BLOOD Specimen Type : BLOOD Comment: Automated Differential Performed Ordering Provider: ANTHONY HENRY Report Released Date/Time: September 28, 2023 04:18 PM Reporting Lab: [facility] [address] Performing Lab: [facility] [address] WBC 8.66 10*3/uL 4.0-11.0 RBC 3.97 10*6/uL L 4.6-6.2 HGB 14.0 g/dL 13.5-17.9 HCT 40.0 L 41-54 MCV 100.8 fL H 80-100 MCH 35.3 pg H 27-33 MCHC 35.0 g/dL 32.0-37.5 PLT 283 10*3/uL 150-400 MPV 8.8 fL 7.4-10.4 NEUT 51.4 40.0-80.0 LYMPHS 30.6 15.0-45.0 MONO 12.0 2.0-12.0 EOSINO 3.7 0.0-6.0 BASO 0.8 0.0-2.0 RDW 12.0 11.5-14.5 ABS LYMPH 2.65 10*3/uL 1.0-4.0 ABS MONO 1.04 10*3/uL H 0.1-1.0 ABS NEUT 4.45 10*3/uL 2.0-7.7 ABS EOS 0.32 10*3/uL 0-0.5 ABS BASO 0.07 10*3/uL 0-0.2 IG(META,MYELO,PRO) 1.5 ABS IMMATURE GRAN 0.13 10*3/uL H 0-0.1 September 29, 2023 07:14 AM [facility] PROTHROMBIN TIME/INR PLASMA Specime n Type: PLASMA No comment entered. Ordering Provider: ANTHONY HENRY Report Released Date/Time: September 28, 2023 04:18 PM Reporting Lab: [facility] [address] Performing Lab: [facility] [address] .INR 1.0 0.8-1.1 .PT 11.9 s 9.4-12.5 September 28, 2023 07:11 AM [facility] CORTISOL PLASMA Specimen Type : PLASMA No comment entered. Ordering Provider: ANTHONY HENRY Report Released Date/Time: September 27, 2023 08:05 AM Reporting Lab: [facility] [address] Performing Lab: [facility] [address] CORTISOL 10.4 ug/dL September 28, 2023 07:11 AM [facility] TSH W/REFLEX TO FREE T4 PLASMA Spec imen Type: PLASMA No comment entered. Ordering Provider: ANTHONY HENRY Report Released Date/Time: September 27, 2023 08:05 AM Reporting Lab: [facility] [address] Performing Lab: [facility] [address] TSH 5.35 u[IU]/mL H 0.35-4.94 FREE T4 1.01 ng/dL 0.70-1.48 September 27, 2023 07:22 AM [facility] PHOSPHORUS PLASMA Specimen Type : PLASMA No comment entered. Ordering Provider: REVA ROSS Report Released Date/Time: September 26, 2023 06:19 PM Reporting Lab: [facility] [address] Performing Lab: [facility] [address] PHOSPHORUS 3.3 mg/dL 2.3-4.7 September 27, 2023 07:22 AM [facility] BASIC METABOLIC PANEL+MG PLASMA Spe cimen Type: PLASMA No comment entered. Ordering Provider: REVA ROSS Report Released Date/Time: September 26, 2023 06:19 PM Reporting Lab: [facility] [address] Performing Lab: [facility] [address] CREATININE 1.0 mg/dL 0.7-1.2 UREA NITROGEN 6 mg/dL L 8-26 GLUCOSE 89 mg/dL 70-100 SODIUM 136 mmol/L 136-145 POTASSIUM 4.1 mmol/L 3.5-5.1 CHLORIDE 100 mmol/L 98-107 CO2 26 mmol/L 22-29 CALCIUM 9.3 mg/dL 8.4-10.2 MAGNESIUM 1.7 mg/dL 1.6-2.6 ANION GAP 10 mmol/L 5-15 .CREAT EGFR(CKD-EPI) 82 >60 Social History: Smoking Status (Most current) and [...] Date/Time Current Smoking Status Comment Facil ity Nov 25, 2005 10:34 AM CURRENT TOBACCO USER 1/[address] [facility] Advance Directives: All historical and current Section [...] [facility] Date Advance Directives Provider Source Oct 31, 2023 ADVANCE DIRECTIVE CVIX,HERLINDA VIRK. GAYLE OUD (DOM) Oct 17, 2023 ADVANCE DIRECTIVE DISCUSSION [place] [facility] May 11, 2006 ADVANCE DIRECTIVE PEDRO CAMACHO [facility] Radiology Reports: +/- 30 days of the [...] facilities. Date/Time Radiology Report Provider Source September 28, 2023 04:21 PM SEGMENTALS/SERGIO: SUSYCALVIN [id number] -[id number] M Exm Date: SEPTEMBER 28, 2023@16:21 Req Phys: ANTHONY HENRY Loc: 3LS09-28-2023@17:57 [facility] Loc: VASCULAR LAB PROCEDURES Service: PRIMARY [place]ARE [place] [address] (Case [id number] COMPLETE) SEGMENTALS/SERGIO (VAS Detailed) CPT:15040 Reason for Study: ABIs to make sure no severe PAD for compression Tx Clinical History: Orthostatic Hypotension. Need ABIs to make sure no severe PAD that would preclude compression stockings. Responsible provider name and phone number to notify for critical findings if other than user placing the order and pager listed below: User placing orders pager: [phone] LAST CREATININE 1.0 (09/27/23) Report Status: Verified Date Reported: SEPTEMBER 28, 2023 Date Verified: SEPTEMBER 28, 2023 [facility] E-Sig:/ES/DELILAH POE MD Report: Bilateral Lower Extremity Ankle Brachial Indices and Segmental Pressures Comparison study: . Technique: Brachial, ankle and great toe pressures obtained along with VPR waveforms of the lower extremities at 3 or more levels, and great toe PPG waveforms Clinical history: Reason for Study: ABIs to make sure no severe PAD for compression Tx Orthostatic Hypotension. Need ABIs to make sure no severe PAD that would preclude compression stockings. Responsible provider name and phone number to notify for critical findings if other than user placing the order and pager listed below: User placing orders pager: [phone] LAST CREATININE 1.0 (09/27/23) Findings: Right: Arm: 124 mmHg PT at ankle: 170 mmHg DP at foot: 161 mmHg First toe: 100 mmHg SERGIO: 1.25 TBI: 0.74 First toe PPG: Diminished Left: Arm: 136 mmHg PT at ankle: 169 mmHg DP at foot: 169 mmHg First toe: 160 mmHg SERGIO: 1.24 TBI: 1.18 First toe PPG: Normal Pulse volume recordings: Right leg: Unremarkable. Left leg: Unremarkable. Impression: 1. Right lower extremity: SERGIO: 1.25. Normal. TBI: 0.74. Normal. PVRs: Do not suggest a focal level of arterial disease. First toe PPG: Diminished. 2. Left lower extremity: SERGIO: 1.24. Normal. TBI: 1.18. Normal. PVRs: Do not suggest a focal level of arterial disease. First toe PPG: Normal. Primary Interpreting Staff: DELILAH POE MD, RADIOLOGIST ([employer]) /DELILAH CORONA [facility] Pathology Reports: +/- 30 days of the [...] comes from all [place] treatment facilities. Date/Time Pathology Report Provider Source October 07, 2023 01:53 PM [facility] REPORT: LOCAL TITLE: LR SURGICAL PATHOLOGY REPORT STANDARD TITLE: PATHOLOGY REPORT DATE OF NOTE: OCTOBER 07, 2023@13:53:43 ENTRY DATE: OCTOBER 07, 2023@13:53:43 AUTHOR: DI ZUNIGA COSIGNER: URGENCY: STATUS: COMPLETED $APHDR Reporting Lab: [facility] [CLIA# [id number]] [place] [address] - - - - - - - - - - - - - - - - - - - - - - - - - - - - - - - - - - - - - - - - MEDICAL RECORD SURGICAL PATHOLOGY - - - - - - - - - - - - - - - - - - - - - - - - - - - - - - - - - - - - - - - - PATHOLOGY REPORT Accession No. [id number] [id number] - - - - - - - - - - - - - - - - - - - - - - - - - - - - - - - - - - - - - - - - $TEXT Submitted by: ITA ANDRES Date obtained: October 05, 2023 - - - - - - - - - - - - - - - - - - - - - - - - - - - - - - - - - - - - - - - - Specimen (Received October 06, 2023 08:24): BX GE JUNCTION - - - - - - - - - - - - - - - - - - - - - - - - - - - - - - - - - - - - - - - - BRIEF CLINICAL HISTORY: Procedure: upper GI endoscopy - - - - - - - - - - - - - - - - - - - - - - - - - - - - - - - - - - - - - - - - PREOPERATIVE DIAGNOSIS: R/O Dysplasia, R/O Bowser's - - - - - - - - - - - - - - - - - - - - - - - - - - - - - - - - - - - - - - - - OPERATIVE FINDINGS: - - - - - - - - - - - - - - - - - - - - - - - - - - - - - - - - - - - - - - - - POSTOPERATIVE DIAGNOSIS: Surgeon/physician: ITA ANDRES MD =-=-=-=-=-=-=-=-=-=-=-=-=-= -=-=-=-=-=-=-=-=-=-=-=-=-=- =-=-=-=-=-=-=-=-=-=-=-=-= - - - - - - - - - - - - - - - - - - - - - - - - - - - - - - - - - - - - - - - - PATHOLOGY REPORT Accession No. SP-MN [id number] - - - - - - - - - - - - - - - - - - - - - - - - - - - - - - - - - - - - - - - - Pathology Resident: QUINTEN ROY MD GROSS DESCRIPTION: The requisition form and specimen(s) identification is confirmed. The specimen is received in formalin labeled as GE junction and consists of 2 anguiano-white tissue fragments measuring 0.4 and 0.7 [address] [facility] MICROSCOPIC DESCRIPTION: Microscopic examination performed. DIAGNOSIS: Gastroesophageal junction, biopsies-- - Squamous and gastric-type mucosa with areas of erosive esophagitis - No intestinal metaplasia identified - No evidence of dysplasia or malignancy /ubaldo/ DI ZUNIGA MD STAFF PATHOLOGIST Signed October 07, 2023@13:53 Performing Laboratory: Surgical Pathology Report Performed By: [facility] [CLIA# [id number]] [place] [address] $FTR - - - - - - - - - - - - - - - - - - - - - - - - - - - - - - - - - - - - - - - - (End of report) DI gibson Date October 07, 2023 - - - - - - - - - - - - - - - - - - - - - - - - - - - - - - - - - - - - - - - - CALVIN JAIN STANDARD FORM 515 ID:[id number] SEX:M :1955 AGE: 68 LOC:[id number] PCP: Brijesh Henderson MD /ubaldo/ DI ZUNIGA MD STAFF PATHOLOGIST Signed: 10/07/2023 13:53 DI ZUNIGA [facility] Encounter Notes: All associated encounter notes This section contains the clinical notes associated to the Encounter. Date/Time Encounter Note(s) Provider Source Oct 26, 2023 01:23 PM MENTAL HEALTH TEAM NOTE: LOCAL TITLE: MH RRTP GROUP NOTE STANDARD TITLE: MENTAL HEALTH TEAM NOTE DATE OF NOTE: OCT 26, 2023@13:23 ENTRY DATE: OCT 26, 2023@13:23:48 AUTHOR: REINALDO DESHPANDE COSIGNER: URGENCY: STATUS: COMPLETED [facility]: [facility] Treatment Program ([facility]) GROUP: Stages of Change Therapy Group (Motivational Interviewing) CLINIC: [facility] M[facility] JOSE T3 SCMI E or C DATE/TIME: 10/26/23 11:00 : CALVIN JAIN BELT CUTTER: Reinaldo Deshpande director of elementary education DURATION: 50 min session PARTICIPANTS: 8 S: CALVIN JAIN attended the Stages of Change, Motivational Interviewing Therapy Group on OCT 26, 2023 . Abrading Machine Tender used Motivational Interviewing techniques consisting of reflective listening, double-sided summaries & reframing when discussing the thoughts & emotions expressed by various group members. The group primarily focused on how people going through recovery could go about managing their mental health. The ongoing goal of this group is to help participants use motivational strategies to explore & resolve ambivalence about changing & to help them mobilize themselves with their own change resources. The motivational interviewing approach uses a respectful & empathetic approach in encouraging change. The ongoing purpose of this therapy group is to address where a patient finds themselves positioned in their mental health recovery & assist them with moving through the stages of change towards successful sustained change. Today in Group: Group was started with [employer] and shared what they will be working on today. Group had discussion on pet therapy and resources to do get a service dog. Huntley had short discussion on anxiety and will continue with tomorrow. O: CALVNI JAIN is a 68-year-old, NEVER , MALE, Huntley who is SERVICE CONNECTED % - 100 Attire was casual and Huntley was well groomed. Huntley maintained appropriate eye contact throughout today's group session. Huntley appeared oriented to person, place, time, and circumstance. Affective expression throughout this session demonstrated full range. Mood was appropriate & congruent with today's topic. appeared oriented to the information & discussion in group. Posture was relaxed. Speech was appropriate in content and rate. A: This 's diagnosis include ACTIVE PROBLEMS Major depressive disorder Exposure to potentially hazardous substance Alcohol abuse PTSD - Post-traumatic stress disorder Insomnia Obstructive Sleep Apnea of Adult Elevated blood pressure Hypercholesterolemia Knee Pain Osteoarthrosis involving the knee Obesity INSOMNIA, unspecified Tobacco Use Disorder from their health care provider. The Huntley appeared attentive and alert in group today. Huntley's level of participation in group was satisfactory as measured by appropriate participation & interaction with group members and by their willingness to contribute to group discussion. displayed appropriate insight on this date. Based on this group session, this appears to be making satisfactory progress toward treatment goals and appears to be motivated to benefit from this group. P: CALVIN JAIN will continue to attend the Stages of Change, Motivational Interviewing therapy group for the duration of their treatment. The will share, as applicable and at their emotional comfort, the results of their homework from group. The Veterans will have the opportunity to continue to demonstrate their knowledge and use of the SCMI by working through the group process and offering relevant & constructive feedback to their peers. /ubaldo/ REINALDO DESHPANDE RN TREATMENT FINANCE INSURANCE MANAGER, RRTP Signed: 10/26/2023 13:[address] [facility]
--- OUTSIDE RECORDS SUMMARY | 2023-11-01 10:15 | XMS_ITS | Encounter Summary ---
Author Name [facility] [place] [facility] Address [address] [place] [address] Care Team Providers Care Drain Tile Machine Operator Name Role Phone BRIJESH HENDERSON Primary Care [...] Policy Hurt's Name Patient's Relationship to Policy Hutr [facility] (R) MEDICARE ADVANTAGE MCR ([facility]) May 16, 2023 [id number] JEAN JAIN IN PATIENT [facility] (WNR) MEDICARE ADVANTAGE [facility] ([facility]) May 16, 2023 [id number] JEAN JAIN IN PATIENT Selected Encounter This section includes the information on record at [place] for the Encounter. Date/Time Encounter Type Encounter Description Reason Provider Source Nov 01, 2023 03:15 PM [facility] - IND ICD-10-CM F43.10 Post-traumatic stress disorder, unspecified Raysa MYRICK [facility] Encounter Template Text not used by [place] Assessments - Encounter Diagnoses This section includes the primary and secondary diagnoses documented for the Encounter. Date/Time Primary/Secondary Diagnosis Diagnosis Name Provider Source Nov 04, 2023 02:06 PM PRIMARY Post-traumatic stress disorder, unspecified Raysa MYRICK [facility] Nov 04, 2023 02:06 PM SECONDARY Alcohol abuse, uncomplicated Raysa MYRICK [facility] Plan of Treatment: Future Appointments (+ 6 months) and Future Tests (+/- 45 days) The Plan of Treatment section includes future care activities for the patient from all [place] [facility]. This section includes future appointments and future orders which are active, pending or scheduled. Future Appointments This section includes appointments that were scheduled to occur 6 months from the date of the Encounter, up to a maximum of 20 appointments. The data comes from all [place] treatment [facility]. Appointment Date/Time Appointment Type Appointme nt Facility Name Nov 03, 2023 09:00 AM AMBULATORY - PSYCHIATRY [facility] Nov 03, 2023 11:00 AM AMBULATORY - PSYCHIATRY [facility] Nov 03, 2023 01:40 PM AMBULATORY - PSYCHIATRY [facility] Nov 04, 2023 11:00 AM AMBULATORY - PSYCHIATRY [facility] Nov 04, 2023 01:00 PM AMBULATORY - PSYCHIATRY [facility] Nov 04, 2023 02:00 PM AMBULATORY - PSYCHIATRY [facility] Nov 07, 2023 10:00 AM AMBULATORY - PSYCHIATRY [facility] Nov 07, 2023 11:00 AM AMBULATORY - PSYCHIATRY [facility] Nov 07, 2023 02:00 PM AMBULATORY - PSYCHIATRY [facility] Nov 08, 2023 10:00 AM AMBULATORY - PSYCHIATRY [facility] Nov 08, 2023 11:00 AM AMBULATORY - PSYCHIATRY [facility] Nov 08, 2023 01:00 PM AMBULATORY - PSYCHIATRY [facility] Nov 08, 2023 02:00 PM AMBULATORY - PSYCHIATRY [facility] Nov 09, 2023 10:00 AM AMBULATORY - PSYCHIATRY [facility] Nov 09, 2023 11:00 AM AMBULATORY - PSYCHIATRY [facility] Nov 09, 2023 01:00 PM AMBULATORY - PSYCHIATRY [facility] Nov 09, 2023 02:00 PM AMBULATORY - PSYCHIATRY [facility] Nov 10, 2023 10:00 AM AMBULATORY - PSYCHIATRY [facility] Nov 10, 2023 11:00 AM AMBULATORY - PSYCHIATRY [facility] Nov 10, 2023 01:00 PM AMBULATORY - PSYCHIATRY [facility] Active, Pending, and Scheduled Orders This section includes a listing of several types of active, pending, and scheduled orders, including clinic medications orders, diagnostic test orders, procedure orders and consult orders; where the start date of the order is 45 days before the date of the Encounter or 45 days after the date of theEncounter. The data comes from all [place] treatment facilities. Test Date/Time Test Type Test Details Facility Name September 23, 2023 12:52 PM Laboratory - Microbiology Order CULTURE & SUSCEPTIBILITY SPUTUM WC ONCE [facility] September 23, 2023 12:52 PM Laboratory - Microbiology Order GRAM STAIN SPUTUM WC ONCE [facility] September 29, 2023 05:30 AM Laboratory - Blood Bank Order TYPE & SCREEN - LAB BLOOD LC [facility] Lab Results: +/- 30 days of the [...] Type Comment Nov 07, 2023 06:42 AM [employer] [facility] (DOM) DRUG SCREEN PANEL, SEMI-QUANT URINE URINE Spe cimen Type: URINE Comment: Screening results should not be used for non-medical purposes Ordering Provider: SURINDER OMALLEY Report Released Date/Time: Nov 07, 2023 01:33 AM Reporting Lab: [address] [address] Performing Lab: [address] [phone] AMPHETAMINES-URINE Negative Negative BARBITURATES-URINE Negative Negative BENZODIAZEPINES-URINE Negative Negative CANNABINOIDS-URINE Negative Negative COCAINE-URINE Negative Negative METHADONE-URINE Negative Negative OPIATES-URINE Negative Negative OXYCODONE-URINE Negative Negative ALCOHOL-URINE Negative Negative URINE CREATININE, DOA 48.6 mg/dL >20 TRAMADOL-URINE Negative Negative FENTANYL-URINE Negative Negative PHENCYCLIDINE-URINE Negative Negative Nov 03, 2023 10:05 AM [employer] [facility] (DOM) DRUG SCREEN PANEL, SEMI-QUANT URINE URINE Specimen Type: URINE Comment: Screening results should not be used for non-medical purposes Ordering Provider: SURINDER OMALLEY Report Released Date/Time: Nov 03, 2023 12:44 AM Reporting Lab: [address] [phone] Performing Lab: [address] [phone] AMPHETAMINES-URINE Negative Negative BARBITURATES-URINE Negative Negative BENZODIAZEPINES-URINE Negative Negative CANNABINOIDS-URINE Negative Negative COCAINE-URINE Negative Negative METHADONE-URINE Negative Negative OPIATES-URINE Negative Negative OXYCODONE-URINE Negative Negative ALCOHOL-URINE Negative Negative URINE CREATININE, DOA 121.8 mg/dL >20 TRAMADOL-URINE Negative Negative FENTANYL-URINE Negative Negative PHENCYCLIDINE-URINE Negative Negative Oct 24, 2023 09:20 AM [facility]. [facility] (DOM) DRUG SCREEN PANEL, SEMI-QUANT URINE URINE Specimen Type: URINE Comment: Screening results should not be used for non-medical purposes Ordering Provider: SURINDER OMALLEY Report Released Date/Time: Oct 24, 2023 12:57 AM Reporting Lab: [address] [phone] Performing Lab: [address] [address] AMPHETAMINES-URINE Negative Negative BARBITURATES-URINE Negative Negative BENZODIAZEPINES-URINE Negative Negative CANNABINOIDS-URINE Negative Negative COCAINE-URINE Negative Negative METHADONE-URINE Negative Negative OPIATES-URINE Negative Negative OXYCODONE-URINE Negative Negative ALCOHOL-URINE Negative Negative URINE CREATININE, DOA 64.7 mg/dL >20 TRAMADOL-URINE Negative Negative FENTANYL-URINE Negative Negative PHENCYCLIDINE-URINE Negative Negative Oct 18, 2023 10:10 AM . [facility] (DOM) DRUG SCREEN PANEL, SEMI-QUANT URINE URINE Specimen Type: URINE Comment: Screening results should not be used for non-medical purposes Ordering Provider: SURINDER OMALLEY Report Released Date/Time: Oct 18, 2023 12:58 AM Reporting Lab: [address] [phone] Performing Lab: [address] [phone] AMPHETAMINES-URINE Negative Negative BARBITURATES-URINE Negative Negative BENZODIAZEPINES-URINE Negative Negative CANNABINOIDS-URINE Negative Negative COCAINE-URINE Negative Negative METHADONE-URINE Negative Negative OPIATES-URINE Negative Negative OXYCODONE-URINE Negative Negative ALCOHOL-URINE Negative Negative URINE CREATININE, DOA 154.9 mg/dL >20 TRAMADOL-URINE Negative Negative FENTANYL-URINE Negative Negative PHENCYCLIDINE-URINE Negative Negative Oct 18, 2023 07:25 AM [facility] (DOM) MAGNESIUM PLASMA Specimen Type: PLASMA No comment entered. Ordering Provider: SURINDER OMALLEY Report Released Date/Time: October 13, 2023 09:48 AM Reporting Lab: [address] [phone] Performing Lab: [address] MAGNESIUM 1.6 mg/dL 1.6-2.6 October 13, 2023 06:20 AM [facility] ([facility]) QFTB-PANEL PLASMA Specimen Type: PLASMA Comment: A NEGATIVE result does not preclude the possibility of M. tuberculosis infection or tuberculosis disease. A false-negative results can be due to the stage of infection (e.g., specimen obtained prior to the development of cellular immune response or other immunological variables). Testing performed on Liaison Ordering Provider: SURINDER OMALLEY Report Released Date/Time: October 12, 2023 03:25 PM Reporting Lab: [address] [phone] Performing Lab: [facility] [address] .QNT NIL (LIAISON) 0.04 [IU]/mL .QNT TB1-NIL LIAISON 0.05 [IU]/mL .QNT TB2-NIL LIAISON 0.01 [IU]/mL .QNT MITOGEN LIAISON 9.96 [IU]/mL .QNT FINAL INTERP NEGATIVE See Interp October 13, 2023 06:20 AM [facility] ([facility]) HEPATIC PANEL PLASM A Specimen Type: PLASMA Comment: Glucose results >300 mg/dL OR Total Protein >10 g/dL may interfere with Creatinine result Ordering Provider: SURINDER OMALLEY Report Released Date/Time: October 12, 2023 03:25 PM Reporting Lab: [address] [phone] Performing Lab: [address] PROTEIN, TOTAL 6.3 g/dL 6.0-8.2 ALBUMIN 3.2 g/dL L 3.5-5.0 TOT. BILIRUBIN 0.5 mg/dL 0.1-1.5 DIR. BILIRUBIN 0.2 mg/dL 0.0-0.5 ALKALINE PHOSPHATASE 107 U/L 40-134 AST/SGOT 22 U/L 5-40 ALT/SGPT 19 U/L 0-55 October 13, 2023 06:20 AM [facility] ([facility]) RENAL PROFILE PLASM A Specimen Type: PLASMA Comment: Glucose results >300 mg/dL OR Total Protein >10 g/dL may interfere with Creatinine result Ordering Provider: SURINDER OMALLEY Report Released Date/Time: October 12, 2023 03:25 PM Reporting Lab: [address] Performing Lab: [address] CREATININE 1.0 mg/dL 0.5-1.5 UREA NITROGEN 12 mg/dL 5-23 SODIUM 141 mmol/L 136-145 POTASSIUM 3.7 mmol/L 3.5-5.0 CHLORIDE 104 mmol/L 98-107 CO2 28 meq/L 20-30 CALCIUM 8.9 mg/dL 8.4-10.4 GLUCOSE, RANDOM 92 mg/dL 70-180 EGFR (CKD-EPI 2020) 88 mL/min/{1.73_m2} >60 October 13, 2023 06:20 AM [facility] ([facility]) CBC ([id number]) BLOOD Specimen Type: BLOOD No comment entered. Ordering Provider: SURINDER OMALLEY Report Released Date/Time: October 12, 2023 03:25 PM Reporting Lab: [address] Performing Lab: [address] IG% 0.5 <0.6 IG# 0.04 10*3/uL <0.10 WBC ([id number]) 7.62 10*3/uL 4.0-11.0 RBC ([id number]) 3.77 10*6/uL L 4.6-6.2 HGB ([id number]) 13.0 g/dL L 13.5-17.9 HCT (BY6501) 38.5 L 41.0-54.0 MCV ([id number]) 102.1 fL H 80.0-100.0 MCH (ZR6656) 34.5 pg H 27.0-33.0 MCHC (RS4925) 33.8 g/dL 32.0-36.5 PLT (OH5228) 269 10*3/uL 150-450 RDW-CV (PX3468) 11.4 L 11.5-14.5 MPV ([id number]) 9.0 fL L 9.4-12.4 LYMPHS % (NL4112) 39.5 15.0-45.0 LYMPHS # 3.01 10*3/uL 1.00-4.00 MONO % (CR7468) 6.7 2.0-12.0 MONO # 0.51 10*3/uL 0.10-1.00 EOS % ([id number]) 4.6 <6.0 EOS # 0.35 10*3/uL <0.50 BASO % (WK9302) 1.0 <2.0 BASO # 0.08 10*3/uL <0.20 NEUT % ([id number]) 47.7 40.0-80.0 NEUT # 3.63 10*3/uL 2.00-7.70 NRBC ([id number]) 0.0 <0 October 13, 2023 06:20 AM [facility] (DOM) VITAMIN D 25-HYDROXY (TOTAL) SERUM Sp ecimen Type: SERUM Comment: Total Protein results >12 g/dL may interfere with Vitamin D result Ordering Provider: SURINDER OMALLEY Report Released Date/Time: October 12, 2023 03:25 PM Reporting Lab: [address] [phone] Performing Lab: [address] [phone] VITAMIN D 25-HYDROXY (TOTAL) 16.1 ng/mL L 30.0-100.0 October 13, 2023 06:20 AM [facility] Reasult (DOM) MAGNESIUM PLASMA Specimen Type: PLASMA Comment: Glucose results >300 mg/dL OR Total Protein >10 g/dL may interfere with Creatinine result Ordering Provider: SURINDER OMALLEY Report Released Date/Time: October 12, 2023 03:25 PM Reporting Lab: [address] [phone] Performing Lab: [address] [phone] MAGNESIUM 1.3 mg/dL L 1.6-2.6 October 13, 2023 06:20 AM [employer] ([place]) HIV 1/2 ANTIGEN/ANTIBODY SERUM Specim en Type: SERUM Comment: Total Protein results > 12 g/dL may interfere with HCV result HIV-1 antigen and HIV-1/HIV-2 antibodies were not detected. If recent HIV exposure is suspected or reported, conduct HIV-1 TEIR or request a new specimen and repeat the algorithm according to CDC guidelines. Total Protein results > 10 g/dL may interfere with HIV result Ordering Provider: SURINDER OMALLEY Report Released Date/Time: October 13, 2023 11:18 AM Reporting Lab: [address] [address] Performing Lab: [address] [address] HIV 1/2 ANTIGEN/ANTIBODY NONREACTIVE NON REACTIVE October 13, 2023 06:20 AM [facility] ([facility]) HEPATITIS C ANTIBODY SERUM Specimen [...] October 13, 2023 11:18 AM Reporting Lab: [address] [address] Performing Lab: [address] [phone] HEPATITIS C ANTIBODY NONREACTIVE NONREAC TIVE October 12, 2023 04:15 PM [facility] DRUG SCREEN PANEL, SEMI-QUANT URINE URINE Specimen Type: URINE Comment: Screening results should not be used for non-medical purposes Ordering Provider: SURINDER OMALLEY Report Released Date/Time: October 12, 2023 02:16 PM Reporting Lab: [address] [address] Performing Lab: [address] [phone] AMPHETAMINES-URINE Negative Negative BARBITURATES-URINE Negative Negative BENZODIAZEPINES-URINE Negative Negative CANNABINOIDS-URINE Negative Negative COCAINE-URINE Negative Negative METHADONE-URINE Negative Negative OPIATES-URINE Negative Negative OXYCODONE-URINE Negative Negative ALCOHOL-URINE Negative Negative URINE CREATININE, DOA 119.1 mg/dL >20 TRAMADOL-URINE Negative Negative FENTANYL-URINE Negative Negative PHENCYCLIDINE-URINE Negative Negative October 12, 2023 02:30 PM [facility] COVID-19 SCREENING PANEL (CEPHEID) [...] terminated or revoked sooner. [employer] (656) [facility]. Ordering Provider: SURINDER OMALLEY Report Released Date/Time: October 11, 2023 03:03 PM Reporting Lab: [address] [address] Performing Lab: [address] [phone] COVID-19 (CEPHEID), PCR Negative Negativ e Social History: Smoking Status (Most current) and [...] place. Date/Time Current Smoking Status Comment Nigel garrisony Jun 02, 2023 11:00 AM VA-TOBACCO FORMER USER [facility] Tobacco Use History This section includes a history of the smoking, or tobacco-related health factors, that were collected on or before the date of the Encounter. The data comes from the [place] facility where the Encounter took place. Date/Time Smoking Status/Tobacco Use Comment F acility Jun 02, 2023 11:00 AM VA-TOBACCO QUIT 5 TO < 15 YRS [facility] May 21, 2022 10:30 AM VA-TOBACCO FORMER USER [facility] May 21, 2022 10:30 AM VA-TOBACCO QUIT 15 YRS OR MORE [facility] Nov 12, 2020 12:00 PM VA-TOBACCO FORMER USER [facility] Nov 12, 2020 12:00 PM VA-TOBACCO QUIT 5 TO < 15 YRS [facility] May 31, 2019 06:22 AM INPT NO TOBACCO USE IN LAST 30 D AYS [facility] Nov 08, 2017 01:55 PM VA-TOBACCO FORMER USER [facility] Nov 08, 2017 01:55 PM VA-TOBACCO QUIT 1 TO < 5 YRS [facility] May 11, 2017 12:43 PM FORMER TOBACCO USE >1Y <7Y [facility] Aug 04, 2016 10:25 AM FORMER TOBACCO USE >1Y <7Y [facility] Aug 04, 2015 11:31 AM FORMER TOBACCO USE <1Y [facility] Aug 13, 2014 10:50 AM CURRENT TOBACCO USER [facility] October 10, 2013 09:12 AM FORMER TOBACCO USER 7Y OR GREATE R [facility] May 26, 2012 10:14 AM CURRENT TOBACCO USER [facility] Nov 19, 2009 12:07 PM CURRENT TOBACCO USER [facility] Advance Directives: All historical and current Section Date Range: From patient's date of to the date document was created. This section includes ALL of a patient's completed or amended [place] Advance and Rescinded Directives. The entries below indicate that a directive exists for the patient, but an actual copy is not included with this document. The data comes from all [facility]. Date Advance Directives Provider Source Oct 31, 20[address]ANCE [address] [facility] (DOM) Oct 17, 2023 ADVANCE DIRECTIVE DISCUSSION [facility] May 11, 2006 ADVANCE DIRECTIVE PEDRO CAMACHO [facility] Pathology Reports: +/- 30 days of the [...] comes from all [place] treatment facilities. Date/Time Pathology Report Provider Source October 07, 2023 01:53 PM LR SURGICAL PATHOL OGY REPORT: LOCAL TITLE: LR SURGICAL PATHOLOGY REPORT STANDARD TITLE: PATHOLOGY REPORT DATE OF NOTE: OCTOBER 07, 2023@13:53:43 ENTRY DATE: OCTOBER 07, 2023@13:53:43 AUTHOR: DI ZUNIGA COSIGNER: URGENCY: STATUS: COMPLETED $APHDR Reporting Lab: [facility] [CLIA# [id number]] [address] [place] [address] - - - - - - - [...] - - - PATHOLOGY REPORT Accession No. [id number] - - - - - [...] Performing Laboratory: Surgical Pathology Report Performed By: [facility] [CLIA# [id number]] [place] [address] $FTR - - - - - - - - - - - - - - - - - - - - - - - - - - - - - - - - - - - - - - - - (End of report) DI ZUNIGA MD Date October 07, 2023 - - - - - - - - - - - - - - - - - - - - - - - - - - - - - - - - - - - - - - - - CALVIN JAIN STANDARD FORM 515 ID:[id number] SEX:M :[id number] AGE: 68 LOC:[id number] PCP: Brijesh Henderson MD /ubaldo/ DI ZUNIGA MD STAFF PATHOLOGIST Signed: 10/07/2023 13:53 DI ZUNIGA [facility] Encounter Notes: All associated encounter notes This section contains the clinical notes associated to the Encounter. Date/Time Encounter Note(s) Provider Source Nov 01, 2023 03:15 PM MENTAL HEALTH CONS ULT: LOCAL TITLE: MH RRTP CONSULT STANDARD TITLE: MENTAL HEALTH CONSULT DATE OF NOTE: NOV 01, 2023@15:15 ENTRY DATE: NOV 01, 2023@15:24:11 AUTHOR: HELEN MYRICK COSIGNER: URGENCY: STATUS: COMPLETED [facility] Transition Planning Warm Handoff Date: 11/01/23 Time: 1515 Length of Session: 15 minutes Diagnosis: Alcohol Dependence, Uncomplicated (ICD-10-CM F10.20) Pipe Coverer And Insulator met with and [facility] Towing Pilot, Palomo Hoover [facility], to discuss discharge plans. Gage is currently participating in residential treatment for purposes of addressing alcohol and PTSD. This visit was held at the [facility]. This session consisted of facilitating the Gage's transfer back to the [facility]. plans to discharge to his residence in [place]. Confirmed contact information listed in CPRS is accurate. [facility] Discharge Date: Nov Gage's Discharge Status: Regular What did you find most beneficial about residential treatment? Gage reported the RRTP has been beneficial in finding out who I am, learning to change his unhelpful thought patterns, and in turn engaging in more positive actions. He also discussed the benefits of having other veterans around him for support. Clinical Recommendations for ongoing care: - Outpatient MH Psychiatry (General med management) - Outpatient JOSE Psychotherapy - General Outpatient MH Therapy/Treatment Coordination is agreeable to these recommendations: Yes Gage's preferences and additional plans for ongoing care: N/A The following appointments have been requested for the Gage following discharge from [facility]. 1. ARS screening assessment scheduled for 11/18/23 at 1000 via phone where outpatient JOSE treatment plans will be finalized to support his ongoing sobriety. Treatment considerations: Aftercare Treatment group, drop-in recovery groups, Coping Skills group. This appointment will also meet the [facility]-up [facility]. 2. Gage requires psychiatry follow-up appointment within 30 days of discharge (no later than 12/13). Alerting Dr. Mateo Patel with request for assistance in scheduling. Thank you! Assessment: This Gage is preparing for upcoming discharge from [facility]. appears to be making satisfactory progress toward treatment goals. will complete residential episode of care and discharge on 11/14/23 and will be provided with a copy of scheduled aftercare appointments prior to discharge. Pipe Coverer And Insulator will continue to assist and support the discharge/transition process as appropriate and requested. 's providers will be alerted to this note for their awareness. /ubaldo/ Maribeth Myrick, PhD, LP Clinical Psychologist Signed: 11/04/2023 15:22 Receipt Acknowledged By: 11/07/2023 08:09 /ubaldo/ Mateo Patel MD Staff Psychiatrist 11/18/2023 15:28 /es/ SERGE RODRIGUEZ, [facility] CLINICAL PROSTHODONTIST/EDUCATOR HELEN MYRICK [facility]
--- OUTSIDE RECORDS SUMMARY | 2023-11-03 09:00 | XMS_ITS | Encounter Summary ---
Author Name [facility] (OR) Organization [facility] ([place]) Address [address] [place] [address] Care Team Providers Care Call Centre Supervisor Name Role Phone BRIJESH HENDERSON Primary Care [...] to Policy Hurt [facility] (R) MEDICARE ADVANTAGE [facility] ([facility]) May 16, 2023 [id number] JEAN JAIN IN PATIENT [facility] (WNR) MEDICARE ADVANTAGE [facility] ([facility]) May 16, 2023 [id number] JEAN JAIN IN PATIENT Selected Encounter This section includes the information on record at OR for the Encounter. Date/Time Encounter Type Encounter Description Reason Provider Source Nov 03, 2023 02:00 PM MTMS BY PHARM ADDL 15 [facility] - IND ICD-10-CM G47.00 Insomnia, unspecified TAIWO PHAN Encounter Template Text not used by OR Assessments - Encounter Diagnoses This section includes the primary and secondary diagnoses documented for the Encounter. Date/Time Primary/Secondary Diagnosis Diagnosis Name Provider Source Nov 03, 2023 03:43 PM PRIMARY Insomnia, unspecified TAIWO PHAN [facility] Nov 03, 2023 03:43 PM SECONDARY Alcohol abuse, uncomplicated TAIWO PHAN [facility] Nov 03, 2023 03:43 PM SECONDARY Major depressive disorder, recurrent, moderate TAIWO PHAN [facility] Nov 03, 2023 03:43 PM SECONDARY Post-traumatic stress disorder, unspecified TAIWO PHAN [facility] Plan of Treatment: Future Appointments (+ 6 months) and Future Tests (+/- 45 days) The Plan of Treatment section includes future care activities for the [facility] This section includes future appointments and future orders which are active, pending or scheduled. Future Appointments This section includes appointments that were scheduled to occur 6 months from the date of the Encounter, up to a maximum of 20 appointments. The data comes from all [facility]. Appointment Date/Time Appointment Type Appointme nt Facility Name Nov 04, 2023 11:00 AM AMBULATORY - PSYCHIATRY [facility] Nov 04, 2023 01:00 PM AMBULATORY - PSYCHIATRY [facility] Nov 04, 2023 02:00 PM AMBULATORY - PSYCHIATRY [facility] Nov 07, 2023 10:00 AM AMBULATORY - PSYCHIATRY [facility] Nov 07, 2023 11:00 AM AMBULATORY - PSYCHIATRY [facility] Nov 07, 2023 02:00 PM AMBULATORY - PSYCHIATRY [facility] Nov 08, 2023 10:00 AM AMBULATORY - PSYCHIATRY [facility] Nov 08, 2023 11:00 AM AMBULATORY - PSYCHIATRY [facility] Nov 08, 2023 01:00 PM AMBULATORY - PSYCHIATRY [facility] Nov 08, 2023 02:00 PM AMBULATORY - PSYCHIATRY [facility] Nov 09, 2023 10:00 AM AMBULATORY - PSYCHIATRY [facility] Nov 09, 2023 11:00 AM AMBULATORY - PSYCHIATRY [facility] Nov 09, 2023 01:00 PM AMBULATORY - PSYCHIATRY [facility] Nov 09, 2023 02:00 PM AMBULATORY - PSYCHIATRY [facility] Nov 10, 2023 10:00 AM AMBULATORY - PSYCHIATRY [facility] Nov 10, 2023 11:00 AM AMBULATORY - PSYCHIATRY [facility] Nov 10, 2023 01:00 PM AMBULATORY [facility] Nov 10, 2023 02:00 PM AMBULATORY [facility] Nov 11, 2023 08:10 AM AMBULATORY [facility] Nov 11, 2023 11:00 AM AMBULATORY [facility] Active, Pending, and Scheduled Orders This section includes a listing of several types of active, pending, and scheduled orders, including clinic medications orders, diagnostic test orders, procedure orders and consult orders; where the start date of the order is 45 days before the date of the Encounter or 45 days after the date of theEncounter. The data comes from all [facility] (formerly [facility]) facilities. Test Date/Time Test Type Test Details Facility Name September 23, 2023 12:52 PM Laboratory - Microbiology Order GRAM STAIN SPUTUM WC ONCE [facility] September 23, 2023 12:52 PM Laboratory - Microbiology Order CULTURE & SUSCEPTIBILITY SPUTUM ONCE [facility] September 29, 2023 05:30 AM Laboratory - Blood Bank Order TYPE & SCREEN - LAB BLOOD [facility] Lab Results: +/- 30 days of [...] Type Comment Nov 07, 2023 06:42 AM [facility] ([facility]) DRUG SCREEN PANEL, SEMI-QUANT URINE URINE Spe cimen Type: URINE Comment: Screening results should not be used for non-medical purposes Ordering Provider: SURINDER OMALLEY Report Released Date/Time: Nov 07, 2023 01:33 AM Reporting Lab: [address] [phone] Performing Lab: [address] [address] AMPHETAMINES-URINE Negative Negative BARBITURATES-URINE Negative Negative BENZODIAZEPINES-URINE Negative Negative CANNABINOIDS-URINE Negative Negative COCAINE-URINE Negative Negative METHADONE-URINE Negative Negative OPIATES-URINE Negative Negative OXYCODONE-URINE Negative Negative ALCOHOL-URINE Negative Negative URINE CREATININE, DOA 48.6 mg/dL >20 TRAMADOL-URINE Negative Negative FENTANYL-URINE Negative Negative PHENCYCLIDINE-URINE Negative Negative Nov 03, 2023 10:05 AM [employer] ([place]) DRUG SCREEN PANEL, SEMI-QUANT URINE URINE Specimen Type: URINE Comment: Screening results should not be used for non-medical purposes Ordering Provider: SURINDER OMALLEY Report Released Date/Time: Nov 03, 2023 12:44 AM Reporting Lab: [address] [phone] Performing Lab: [address] [address] AMPHETAMINES-URINE Negative Negative BARBITURATES-URINE Negative Negative BENZODIAZEPINES-URINE Negative Negative CANNABINOIDS-URINE Negative Negative COCAINE-URINE Negative Negative METHADONE-URINE Negative Negative OPIATES-URINE Negative Negative OXYCODONE-URINE Negative Negative ALCOHOL-URINE Negative Negative URINE CREATININE, DOA 121.8 mg/dL >20 TRAMADOL-URINE Negative Negative FENTANYL-URINE Negative Negative PHENCYCLIDINE-URINE Negative Negative Oct 24, 2023 09:20 AM [employer]. [facility] ([place]) DRUG SCREEN PANEL, SEMI-QUANT URINE URINE Specimen Type: URINE Comment: Screening results should not be used for non-medical purposes Ordering Provider: SURINDER OMALLEY Report Released Date/Time: Oct 24, 2023 12:57 AM Reporting Lab: [address] [phone] Performing Lab: [address] [address] AMPHETAMINES-URINE Negative Negative BARBITURATES-URINE Negative Negative BENZODIAZEPINES-URINE Negative Negative CANNABINOIDS-URINE Negative Negative COCAINE-URINE Negative Negative METHADONE-URINE Negative Negative OPIATES-URINE Negative Negative OXYCODONE-URINE Negative Negative ALCOHOL-URINE Negative Negative URINE CREATININE, DOA 64.7 mg/dL >20 TRAMADOL-URINE Negative Negative FENTANYL-URINE Negative Negative PHENCYCLIDINE-URINE Negative Negative Oct 18, 2023 10:10 AM [employer]. [facility] ([place]) DRUG SCREEN PANEL, SEMI-QUANT URINE URINE Specimen Type: URINE Comment: Screening results should not be used for non-medical purposes Ordering Provider: SURINDER OMALLEY Report Released Date/Time: Oct 18, 2023 12:58 AM Reporting Lab: [address] [phone] Performing Lab: [address] [address] AMPHETAMINES-URINE Negative Negative BARBITURATES-URINE Negative Negative BENZODIAZEPINES-URINE Negative Negative CANNABINOIDS-URINE Negative Negative COCAINE-URINE Negative Negative METHADONE-URINE Negative Negative OPIATES-URINE Negative Negative OXYCODONE-URINE Negative Negative ALCOHOL-URINE Negative Negative URINE CREATININE, DOA 154.9 mg/dL >20 TRAMADOL-URINE Negative Negative FENTANYL-URINE Negative Negative PHENCYCLIDINE-URINE Negative Negative Oct 18, 2023 07:25 AM . [facility] ([place]) MAGNESIUM PLASMA Specimen Type: PLASMA No comment entered. Ordering Provider: SURINDER OMALLEY Report Released Date/Time: October 13, 2023 09:48 AM Reporting Lab: [address] [address] Performing Lab: [address] [address] MAGNESIUM 1.6 mg/dL 1.6-2.6 October 13, 2023 06:20 AM [facility] ([place]) QFTB-PANEL PLASMA Specimen Type: PLASMA Comment: A [...] October 12, 2023 03:25 PM Reporting Lab: [address] [address] Performing Lab: [facility] [address] .QNT NIL (LIAISON) 0.04 [IU]/mL .QNT TB1-NIL LIAISON 0.05 [IU]/mL .QNT TB2-NIL LIAISON 0.01 [IU]/mL .QNT MITOGEN LIAISON 9.96 [IU]/mL .QNT FINAL INTERP NEGATIVE See Interp October 13, 2023 06:20 AM [facility] ([place]) HEPATIC PANEL PLASM A Specimen Type: PLASMA Comment: Glucose results >300 mg/dL OR Total Protein >10 g/dL may interfere with Creatinine result Ordering Provider: SURINDER OMALLEY Report Released Date/Time: October 12, 2023 03:25 PM Reporting Lab: [address] [phone] Performing Lab: [address] [address] PROTEIN, TOTAL 6.3 g/dL 6.0-8.2 ALBUMIN 3.2 g/dL L 3.5-5.0 TOT. BILIRUBIN 0.5 mg/dL 0.1-1.5 DIR. BILIRUBIN 0.2 mg/dL 0.0-0.5 ALKALINE PHOSPHATASE 107 U/L 40-134 AST/SGOT 22 U/L 5-40 ALT/SGPT 19 U/L 0-55 October 13, 2023 06:20 AM [facility] ([facility]) CBC ([id number]) BLOOD Specimen Type: BLOOD No comment entered. Ordering Provider: SURINDER OMALLEY Report Released Date/Time: October 12, 2023 03:25 PM Reporting Lab: [address] Performing Lab: [address] IG% 0.5 <0.6 IG# 0.04 10*3/uL <0.10 WBC ([id number]) 7.62 10*3/uL 4.0-11.0 RBC ([id number]) 3.77 10*6/uL L 4.6-6.2 HGB ([id number]) 13.0 g/dL L 13.5-17.9 HCT ([id number]) 38.5 L 41.0-54.0 MCV ([id number]) 102.1 fL H 80.0-100.0 MCH ([id number]) 34.5 pg H 27.0-33.0 MCHC ([id number]) 33.8 g/dL 32.0-36.5 PLT (UV5266) 269 10*3/uL 150-450 RDW-CV ([id number]) 11.4 L 11.5-14.5 MPV (ZO2711) 9.0 fL L 9.4-12.4 LYMPHS % ([id number]) 39.5 15.0-45.0 LYMPHS # 3.01 10*3/uL 1.00-4.00 MONO % ([id number]) 6.7 2.0-12.0 MONO # 0.51 10*3/uL 0.10-1.00 EOS % (AL3535) 4.6 <6.0 EOS # 0.35 10*3/uL <0.50 BASO % (FH4034) 1.0 <2.0 BASO # 0.08 10*3/uL <0.20 NEUT % ([id number]) 47.7 40.0-80.0 NEUT # 3.63 10*3/uL 2.00-7.70 NRBC (ON0221) 0.0 <0 October 13, 2023 06:20 AM . [facility] ([place]) RENAL PROFILE PLASM A Specimen Type: PLASMA Comment: Glucose results >300 mg/dL OR Total Protein >10 g/dL may interfere with Creatinine result Ordering Provider: SURINDER OMALLEY Report Released Date/Time: October 12, 2023 03:25 PM Reporting Lab: [address] Performing Lab: [address] CREATININE 1.0 mg/dL 0.5-1.5 UREA NITROGEN 12 mg/dL 5-23 SODIUM 141 mmol/L 136-145 POTASSIUM 3.7 mmol/L 3.5-5.0 CHLORIDE 104 mmol/L 98-107 CO2 28 meq/L 20-30 CALCIUM 8.9 mg/dL 8.4-10.4 GLUCOSE, RANDOM 92 mg/dL 70-180 EGFR (CKD-EPI 2020) 88 mL/min/{1.73_m2} >60 October 13, 2023 06:20 AM [facility] ([facility]) VITAMIN D 25-HYDROXY (TOTAL) SERUM Sp ecimen Type: SERUM Comment: Total Protein results >12 g/dL may interfere with Vitamin D result Ordering Provider: SURINDER OMALLEY Report Released Date/Time: October 12, 2023 03:25 PM Reporting Lab: [address] Performing Lab: [address] VITAMIN D 25-HYDROXY (TOTAL) 16.1 ng/mL L 30.0-100.0 October 13, 2023 06:20 AM [facility] ([facility]) MAGNESIUM PLASMA Specimen Type: PLASMA Comment: Glucose results >300 mg/dL OR Total Protein >10 g/dL may interfere with Creatinine result Ordering Provider: SURINDER OMALLEY Report Released Date/Time: October 12, 2023 03:25 PM Reporting Lab: [address] Performing Lab: [address] [address] MAGNESIUM 1.3 mg/dL L 1.6-2.6 October 13, 2023 06:20 AM [facility] ([place]) HIV 1/2 ANTIGEN/ANTIBODY SERUM Specim en [...] October 13, 2023 11:18 AM Reporting Lab: [address] [address] Performing Lab: [address] [address] HIV 1/2 ANTIGEN/ANTIBODY NONREACTIVE NON REACTIVE October 13, 2023 06:20 AM [facility] ([place]) HEPATITIS C ANTIBODY SERUM Specimen T ype: [...] October 13, 2023 11:18 AM Reporting Lab: [address] [phone] Performing Lab: [address] [address] HEPATITIS C ANTIBODY NONREACTIVE NONREAC TIVE October 12, 2023 04:15 PM [facility] DRUG SCREEN PANEL, SEMI-QUANT URINE URINE Specimen Type: URINE Comment: Screening results should not be used for non-medical purposes Ordering Provider: SURINDER OMALLEY Report Released Date/Time: October 12, 2023 02:16 PM Reporting Lab: [address] [address] Performing Lab: [address] [address] AMPHETAMINES-URINE Negative Negative BARBITURATES-URINE Negative Negative BENZODIAZEPINES-URINE Negative Negative CANNABINOIDS-URINE Negative Negative COCAINE-URINE Negative Negative METHADONE-URINE Negative Negative OPIATES-URINE Negative Negative OXYCODONE-URINE Negative Negative ALCOHOL-URINE Negative Negative URINE CREATININE, DOA 119.1 mg/dL >20 TRAMADOL-URINE Negative Negative FENTANYL-URINE Negative Negative PHENCYCLIDINE-URINE Negative Negative October 12, 2023 02:30 PM [facility] COVID-19 SCREENING PANEL (CEPHEID) NASOPHARYNX Spec imen [...] terminated or revoked sooner. Cepheid GeneXpert (656) [facility]. Ordering Provider: SURINDER OMALLEY Report Released Date/Time: October 11, 2023 03:03 PM Reporting Lab: [address] [address] Performing Lab: [address] [address] COVID-19 (CEPHEID), PCR Negative Negativ e Vital Signs: All taken on the encounter date This section contains inpatient and outpatient Vital Signs collected on the date of the Encounter. Date/Time Temperature Pulse Blood Pressure Respiratory Rate SP02 Pain Height Weight Body Mass Index Source Nov 03, 2023 01:22 PM 97.4 86 103/72 16 95 4 259 36 [facility] Social History: Smoking Status (Most current) and Tobacco Use (All prior to encounter date) This section includes the most current, and the historical, smoking and tobacco- related health factors from the OR facility where the Encounter took place. Current Smoking Status This section includes the most current smoking, or tobacco-related health factor, from the OR facility where the Encounter took place. Date/Time Current Smoking Status Comment Nigel terrazas Nov 25, 2005 10:34 AM CURRENT TOBACCO USER 1/2 ppd. [facility] Advance Directives: All historical and current Section Date Range: From patient's date of to the date document was created. This section includes ALL of a patient's completed or amended OR Advance and Rescinded Directives. The entries below indicate that a directive exists for the patient, but an actual copy is not included with this document. The data comes from all OR facilities. Date Advance Directives Provider Source Oct 31, 2023 ADVANCE DIRECTIVE HERLINDA SONG ([place]) Oct 17, 2023 ADVANCE DIRECTIVE DISCUSSION PALOMO MAN [facility] May 11, 2006 ADVANCE DIRECTIVE PEDRO CAMACHO [facility] Pathology Reports: +/- 30 days of [...] COSIGNER: URGENCY: STATUS: COMPLETED $APHDR Reporting Lab: [facility] [CLIA# [id number]] [place] [address] - - - - - - - [...] Performing Laboratory: Surgical Pathology Report Performed By: [facility] [CLIA# [id number]] [place] [address] $FTR - - - - - - [...] - - CALVIN JAIN STANDARD FORM 515 ID:[id number] SEX:M :1955 AGE: 68 LOC:1153 PCP: Brijesh Henderson MD /samantha ZUNIGA MD STAFF PATHOLOGIST Signed: 10/07/2023 13:53 DI ZUNIGA [facility] Encounter Notes: All associated encounter notes This section contains the clinical notes associated to the Encounter. Date/Time Encounter Note(s) Provider Source Nov 03, 2023 01:47 PM PHARMACY NOTE: LOCAL TITLE: PHARM MH MED MONITORING STANDARD TITLE: PHARMACY NOTE DATE OF NOTE: NOV 03, 2023@13:47 ENTRY DATE: NOV 03, 2023@13:47:33 AUTHOR: GEOVANNA RAMIREZ EXP COSIGNER: TAIWO PHAN URGENCY: STATUS: COMPLETED PHARM MH MED MONITORING Has ADDENDA 11/03/23 14:00 CALVIN JAIN 68 y/o MALE with hx of MDD, insomnia, alcohol abuse, PTSD seen for medication management. Denver was admitted to [facility] on September 15:24 for AUD, severe, PTSD, depression with planned discharge of 11/14/23. Denver was last seen by narrative writer on 10/24/23 and medication therapy plan was documented as: -Continue Eszopiclone 3mg qhs (Rx by medical provider) -Continue Prazosin 1mg qhs Discontinued on 10/24 by PharmD --> changed to cyproheptadine 2mg -Decrease vortioxetine to 10mg daily x 4 days then 5mg daily x 4 days then discontinue -Start duloxetine 20mg daily x 4 days then 30mg daily Current medication administration level: nurse administered See past Pharm Med Monitoring notes for additional background information on medication changes during 's [facility] stay. Denver reports since last provider appointment, doing good. Denies concerns with mood, anxiety, exercise, and diet. Notes he has difficulty going to sleep and staying asleep, waking up 7 times last night which has been common the past few nights. Change to duloxetine went well with no ADRs. He declines dose duloxetine increase today. Upon switching from prazosin to cyproheptadine his nightmares have gotten really good noticing less blood pressure decrease in the mornings. Denver expresses interest in starting a new medication for sleep. He has previously tried zolpidem which was effective however experienced sleep walking 10 steps, trazodone which he became tolerant to, and history of doxepin and melatonin. Discussed adding melatonin and was agreeable. Denver has aftercare plans with [facility] on 11/18/23. has no additional questions or concerns for narrative writer today. Review of Systems: Medication Compliance: Missed or extra doses in the past two weeks: None, confirms compliance New or increased medication side effects: none, no side effects reported Exercise: walks from room to cafeteria and back 3x/day Appetite/diet: really good Sleep: expresses difficulty going to sleep and staying asleep, wakes up ~ 7x/night sometimes to use restroom or due to nursing Nightmares: improved upon switch to cyproheptadine Energy/motivation: fine Substance Use: Alcohol - heavily for the past year. He reported consuming alcohol for three months where I drank from morning to night. He stated, I started with a drink a day in July 2023, attempting to reduce his use. He denied any problematic alcohol use prior to that. He stated he has been sober from alcohol for over a month. He first drank alcohol at age 19 when [place] turn the legal drinking age to 18. Recent alcohol abuse was following a fall/rehab stay and as a way to cope with PTSD symptoms and avoid. He denies withdrawal syndromes. Illicit Drugs - denies Marijuana - denies since high school Tobacco - denies - quit 12 years ago Caffeine - coffee daily OTC/Herbals/Non-VA - as documented O: Mental health diagnosis and relevant diagnosis: ACTIVE PROBLEMS Major depressive disorder Exposure to potentially hazardous substance Alcohol abuse PTSD - Post-traumatic stress disorder Insomnia Obstructive Sleep Apnea of Adult Elevated blood pressure Hypercholesterolemia Knee Pain Osteoarthrosis involving the knee Obesity INSOMNIA, unspecified Tobacco Use Disorder SCREENING Questionnaires: 11/03/23 GAD7 : 5 10/27/23 PHQ9: 5 10/13/23 GAD7: 10 (moderate range for anxiety) PHQ9: 12 (moderate range for depression) PCL5: 36 (above the suggested cutoff of 33, indicating is experiencing significant symptoms of PTSD at this time) Vitals: BP: 103/72 (11/03/2023 13:22) P: 86 (11/03/2023 13:22) RR: 16 (11/03/2023 13:22) TEMP: 97.4 F [36.3 C] (11/03/2023 13:22) WT: 259 lb [117.48 kg] (11/03/2023 13:22) HT: 71.5 in [181.6 cm] (10/12/2023 14:15) BMI: 35.7 Weight Measurement DT WEIGHT LB(KG)[BMI] 11/03/2023 13:22 259(117.48)[36*] 10/24/2023 14:02 259.8(117.84)[36*] 10/14/2023 17:11 256.7(116.44)[35*] Pertinent Labs: BUN Collection DT Spec BUN a 10/13/2023 06:20 PLASM 12 COMMENTS: a. Glucose results >300 mg/dL OR Total Protein >10 g/dL may interfere with Creatinine result CREATININE & EGFR Collection DT Spec .CREAT EGFRCKD a 10/13/2023 06:20 PLASM 1.0 88 COMMENTS: a. Glucose results >300 mg/dL OR Total Protein >10 g/dL may interfere with Creatinine result Sodium: Collection DT Spec NA a 10/13/2023 06:20 PLASM 141 COMMENTS: a. Glucose results >300 mg/dL OR Total Protein >10 g/dL may interfere with Creatinine result Potassium: 3.7 (10/13/23 06:20) LIVER PROFILE Collection DT Spec PROTEIN ALBUMIN .T DIAMOND D BILI ALK DEVI AST ALT a 10/13/2023 06:20 PLASM 6.3 3.2 L 0.5 0.2 107 22 19 COMMENTS: a. Glucose results >300 mg/dL OR Total Protein >10 g/dL may interfere with Creatinine result Collection DT Spec .WBC XN .RBC XN HGBXN .HCT XN .MCV XN .MCH XN .MCHC X 10/13/2023 06:20 BLOOD 7.62 3.77 L 13.0 L 38.5 L 102.1 H 34.5 H 33.8 Collection DT Spec .PLT XN .RDW XN .MPV XN .LYMPH .LYMPH .MONO % .MONO # 10/13/2023 06:20 BLOOD 269 11.4 L 9.0 L 39.5 3.01 6.7 0.51 Collection DT Spec .EOS % .EOS # .BASO % .BASO # .NEUT % .NEUT # .NRBC X 10/13/2023 06:20 BLOOD 4.6 0.35 1.0 0.08 47.7 3.63 0.0 Collection DT Spec .IG % X .IG # X 10/13/2023 06:20 BLOOD 0.5 0.04 Platelets: PLATELET COUNT Collection DT Spec .PLT XN 10/13/2023 06:20 BLOOD 269 LAB TESTS SELECTED Collection DT Specimen Test Name Result Units Ref Range 10/13/2023 06:20 SERUM VITD-TOTAL 16.1 L ng/mL 30.0 - 100.0 Comment: Total Protein results >12 g/dL may interfere with Vitamin D result Metabolic Monitoring: .LDL CHOL 170 (11/25/05 09:29) 147 (03/04/06 07:45) CHOL: 225 (11/25/05 09:29) 208 (03/04/06 07:45) HDL: 39 (11/25/05 09:29) 33 (03/04/06 07:45) Medications: Medication Reconciliation: Medication use reviewed with patient. VA medications changed. Non-VA medications list current. AVS offered to , accepted, declined and up-to-date medication list available at any time in RRTP. MRT5 - Allergies/ADRs FACILITY ALLERGY/ADR -------- [facility] GBAE REPT EFF [id number] PENICILLINS [facility] PENICILLIN [facility] TRIAMCINOLONE [facility] ZOLPIDEM [facility] KENALONE INJECTION (40 MG/ML) [facility] PENICILLIN [facility] ZOLPIDEM MRR1 - Med Reconciliation INCLUDED IN THIS LIST: Alphabetical list of active outpatient prescriptions dispensed from this OR (local) and dispensed from another OR or [facility] facility (remote) as well as inpatient orders (local pending and active), local clinic medications, locally documented non-VA medications, and local prescriptions that have or been discontinued in the past 90 days. Non-VA Meds Last Documented On: Nov 25, 2005 NOTE The display of VA prescriptions dispensed from another OR or [facility] facility (remote) is limited to active outpatient prescription entries matched to National Drug File at the originating site and may not include some items such as investigational drugs, compounds, etc. NOT INCLUDED IN THIS LIST: Medications self-entered by the patient into personal health records (i.e. SANDOW) are NOT included in this list. Non-VA medications documented outside this OR, remote inpatient orders (regardless of status) and remote clinic medications are NOT included in this list. The patient and provider must always discuss medications the patient is taking, regardless of where the medication was dispensed or obtained. Remote ACETAMINOPHEN 500MG TAB TAKE TWO TABLETS BY MOUTH TWICE A DAY FOR LOW BACK AND LEFT HIP PAIN Last Filled: 06/03/23 (Active at [facility]) Rx Expiration Date: 06/02/24 Days' Supply: 90 INPT ACETAMINOPHEN 500MG TAB (Status=Active) 1000MG BY MOUTH TWICE A DAY Indication: FOR PAIN [facility] ORDER LAST ACTION: 11/03/23 06:57 GIVEN INPT ACETAMINOPHEN 500MG TAB (Status=Active) 1000MG BY MOUTH TWICE A DAY NEEDED Indication: FOR PAIN INPT ALOH/MGOH/SIMTH XTRA STRENGTH SUSP (Status=Active) 15ML BY MOUTH THREE TIMES A DAY NEEDED Indication: FOR INDIGESTION INPT CHOLECALCIF 50MCG (D3-2,000UNIT) TAB (Status=Active) 50MCG BY MOUTH 0800 Indication: FOR VITAMIN D SUPPLEMENT [facility] ORDER LAST ACTION: 11/03/23 06:57 GIVEN INPT CHOLECALCIF 50MCG (D3-2,000UNIT) TAB (Status=Active) 50MCG BY MOUTH 1800 Indication: FOR VITAMIN D SUPPLEMENT [facility] ORDER LAST ACTION: 11/02/23 16:56 GIVEN Remote CHOLECALCIFEROL 25MCG (1,000UNIT) TAB TAKE ONE TABLET BY MOUTH EVERY DAY FOR VITAMIN D Last Filled: 09/18/23 (Active at [facility]) Rx Expiration Date: 03/31/24 Days' Supply: 90 INPT CYANOCOBALAMIN 1000MCG TAB (Status=Active) 1000MCG BY MOUTH QDAY Indication: FOR VITAMIN B12 SUPPLEMENT [facility]MA ORDER LAST ACTION: 11/03/23 06:57 GIVEN Remote CYANOCOBALAMIN 1000MCG TAB TAKE ONE TABLET BY MOUTH EVERY DAY FOR B12 SUPPLEMENT Last Filled: 08/30/23 (Active at [facility]) Rx Expiration Date: 06/02/24 Days' Supply: 90 INPT CYPROHEPTADINE 2MG TAB UD (Status=Active) 2MG BY MOUTH AT BEDTIME Indication: FOR PTSD NIGHTMARES BCMA ORDER LAST ACTION: 11/02/23 19:58 GIVEN INPT DULOXETINE HCL 30MG EC CAP (Status=Active) 30MG BY MOUTH EVERY MORNING PTSD Indication: FOR DEPRESSION, ANXIETY, AND PAIN [facility]MA ORDER LAST ACTION: 11/03/23 06:57 GIVEN INPT ESZOPICLONE 3MG TAB UD (Status=Active) 3MG BY MOUTH AT BEDTIME Indication: FOR SLEEP [facility]MA ORDER LAST ACTION: 11/02/23 19:59 GIVEN Remote FOLIC ACID 1MG TAB TAKE ONE TABLET BY MOUTH EVERY DAY FOR FOLIC ACID SUPPLEMENT Last Filled: 08/30/23 (Active at [facility]) Rx Expiration Date: 02/09/24 Days' Supply: 90 INPT FOLIC ACID 1MG TAB (Status=Active) 1MG BY MOUTH QDAY Indication: FOR FOLIC ACID SUPPLEMENT BCMA ORDER LAST ACTION: 11/03/23 06:57 GIVEN INPT LIDOCAINE 2% VISCOUS/MAALOX 1:3 SUSP (Status=Active) 15ML BY MOUTH THREE TIMES A DAY NEEDED Give 15ML THREE TIMES A DAY NEEDED for GI COCKTAIL Indication: GI UPSET Remote LIDOCAINE 5% PATCH APPLY 1 PATCH TOPICALLY EVERY DAY NEEDED FOR UP TO 12 HOURS FOR PAIN IN Last Filled: 06/06/23 (Active at [facility]) Rx Expiration Date: 06/02/24 Days' Supply: 30 INPT LIDOCAINE 5% PATCH (Status=Active) 1 PATCH, 5% TRANSDERMAL QDAY NEEDED APPLY TO AFFECTED AREA; REMOVE PATCH 12 HOURS AFTER PLACEMENT (12 HOURS ON AND 12 HOURS OFF) Indication: FOR PAIN Remote MAGNESIUM OXIDE 420MG TAB TAKE ONE TABLET BY MOUTH AT BEDTIME FOR MAGNESIUM SUPPLEMENT Last Filled: 08/30/23 (Active at [facility]) Rx Expiration Date: 02/08/24 Days' Supply: 90 INPT MAGNESIUM OXIDE 420MG TAB (Status=Active) 420MG BY MOUTH AT BEDTIME Indication: FOR MAGNESIUM SUPPLEMENT BCMA ORDER LAST ACTION: 11/02/23 19:58 GIVEN INPT MIDODRINE HCL 10MG TAB (Status=Active) 10MG BY MOUTH THREE TIMES A DAY WITH MEALS Indication: FOR LOW BLOOD PRESSURE BCMA ORDER LAST ACTION: 11/03/23 12:27 GIVEN Remote NALTREXONE (EQV-REVIA) 50MG TAB TAKE ONE TABLET BY MOUTH EVERY DAY FOR SOBRIETY Last Filled: 09/02/23 (Active at [facility]) Rx Expiration Date: 09/02/24 Days' Supply: 30 Remote OMEPRAZOLE 40MG CAP,EC TAKE ONE CAPSULE BY MOUTH TWICE A DAY FOR HEARTBURN Last Filled: 10/05/23 (Active at [facility]) Rx Expiration Date: 01/03/24 Days' Supply: 90 INPT OMEPRAZOLE 40MG EC CAP (Status=Active) 40MG BY MOUTH TWICE A DAY BEFORE MEALS Indication: FOR STOMACH BCMA ORDER LAST ACTION: 11/03/23 06:57 GIVEN Remote PRAZOSIN HCL 1MG CAP TAKE ONE CAPSULE BY MOUTH AT BEDTIME --MAY INCREASE DOSE BY ONE CAPSULE EVERY 3 DAYS UP TO 5 CAPSULES NIGHTLY TOLERATED Last Filled: 10/12/23 (Active at [facility]) Rx Expiration Date: 08/22/24 Days' Supply: 90 Remote THIAMINE 100MG TAB TAKE ONE TABLET BY MOUTH EVERY DAY FOR SUPPLEMENT Last Filled: 08/30/23 (Active at [facility]) Rx Expiration Date: 02/09/24 Days' Supply: 90 INPT THIAMINE 100MG TAB (Status=Active) 100MG BY MOUTH QDAY Indication: FOR THIAMINE DEFICIENCY BCMA ORDER LAST ACTION: 11/03/23 06:57 GIVEN Remote VORTIOXETINE 20MG TAB TAKE ONE TABLET BY MOUTH EVERY DAY Last Filled: 08/22/23 (Active at [facility]) Rx Expiration Date: 08/22/24 Days' Supply: 90 SUPPLIES AMSIT: A 68 y/o WHITE MALE, casually dressed, appropriate for the weather, good hygiene. Pleasant and cooperative throughout interview, good EC. Speech regular rate/volume. PMA neither increased nor decreased. M Euthymic with appropriate affect, no increase or decrease in range/intensity, no lability noted. S A&Ox3 though this is not formally tested I Average (vocab) T Clear, logical, goal directed with no tangentiality or circumstantiality. No evidence of flight of ideas, thought blocking. No evidence of response to internal stimuli. -No AH/VH. No delusional content or paranoia, ideas of reference. -No SI/HI Insight/Judgement good. Assessment: Therapeutic Goals: -Minimize potential for medication-related adverse effects -Maintain the lowest possible degree of MH symptomology in order to minimize risk of later relapse -Sustained remission and prevention of relapse -Improvement in interpersonal relationships and psychosocial functioning -Eliminate or improve modifiable suicide risk factors -Enhanced engagement in treatment through self-management strategies (nutrition, exercise, bibliotherapy, sleep hygiene, tobacco use, caffeine use, alcohol use and abuse, pleasurable activities) 68 y/o WHITE MALE with hx of MDD, insomnia, alcohol abuse, PTSD. 's MH symptoms are ongoing on current psychiatric medication regimen. Discussed starting melatonin and agreeable. Labs and vitals up-to-date, reviewed and okay to continue current psychiatric medication regimen. [place] would like to f/u PRN due to busy RRTP schedule prior to discharge and does not wish to schedule a f/u appointment. PATIENT EDUCATION: The indications, risks vs benefits of treatment and non- treatment, potential side effects, and alternatives associated with various treatment options were reviewed in detail. At this time, understands the treatment proposed and agrees to the use of medications detailed in plan. understands they are to avoid the use of alcohol or illegal drugs. Supportive advice (including medication compliance, risk management, improving interpersonal relationships with significant others, managing sleep, importance of regular exercise, and keeping active and involved in managing anxiety and depression) was provided. Patient is aware to notify the mental health team of new or increased psychiatric problems or medication side effects. Treatment plan was discussed with the [place] who voiced understanding and was in agreement. Plan: 1. Medications -Start melatonin 3mg qhs -Continue Eszopiclone 3mg qhs (Rx by medical provider) -Continue cyproheptadine 2mg -Continue duloxetine 30mg daily 2. Counseling given information regarding mental health services, Urgent Care hours, and National [facility] Crisis Line number (1- [phone], [employer] if a ). Advised if it is medical or mental health emergency to call 911. 3. RTC PRN, will follow-up with outpatient [facility] following discharge, has narrative writer's contact information to reach out as needed after discharge Time spent: 20 minutes /ubaldo/ GEOVANNA RAMIREZ PHARMNahum IV STUDENT Signed: 11/03/2023 16:02 /ubaldo/ TAIWO PHAN PHARMD, [facility] PRACT[facility] Cosigned: 11/03/2023 16:04 11/03/2023 ADDENDUM STATUS: COMPLETED I have discussed the patient with the student pharmacist and agree with the documented assessment and plan. /samantha PHAN PHARMD, [facility]ACT[facility] Signed: 11/03/2023 16:04 11/03/2023 ADDENDUM STATUS: COMPLETED [place] declined an updated medication list today. /ubaldo/ TAIWO PHAN PHARMD, [facility] PRACT[facility] Signed: 11/03/2023 16:05 GEOVANNA RAMIREZ [facility] Nov 03, 2023 01:20 PM MENTAL HEALTH NOTE : LOCAL TITLE: MH CLINICAL REMINDERS NOTE STANDARD TITLE: MENTAL HEALTH NOTE DATE OF NOTE: NOV 03, 2023@13:20 ENTRY DATE: NOV 03, 2023@13:20:54 AUTHOR: AMADA CEVALLOS EXP COSIGNER: URGENCY: STATUS: COMPLETED No clinical reminders completed, inpt RRTP /ubaldo/ AMADA CEVALLOS LPN LICENSED PRACTICAL NURSE Signed: 11/03/2023 13:21 AMADA CEVALLOS [facility]
--- OUTSIDE RECORDS SUMMARY | 2023-11-07 09:00 | XMS_ITS | Encounter Summary ---
Author Name [facility] [place] Organization [facility] [place] Address [address] [place] [address] Care Team Providers Care Bale Coverer Name Role Phone HA HENDERSON Primary Care Provider Unav ailable Insurance [...] Patient's Relationship to Policy Hurt [facility] (R) MEDICARE ADVANTAGE MCR ([facility]) May 16, 2023 [id number] JEAN JAIN IN PATIENT [facility] (WNR) MEDICARE ADVANTAGE [facility] ([facility]) May 16, 2023 [id number] JEAN JAIN IN PATIENT Selected Encounter This section includes the information on record at [place] for the Encounter. Date/Time Encounter Type Encounter Description Reason Provider Source Nov 07, 2023 02:00 PM GROUP PSYCHOTHERAPY RRTP GROUP ICD-10-CM F43.10 Post-traumatic stress disorder, unspecified BO BUCKNER Encounter Template Text not used by [place] Assessments - Encounter Diagnoses This section includes the primary and secondary diagnoses documented for the Encounter. Date/Time Primary/Secondary Diagnosis Diagnosis Name Provider Source Nov 07, 2023 03:03 PM PRIMARY Post-traumatic stress disorder, unspecified ANKUR CHILDS [facility] Nov 07, 2023 03:03 PM SECONDARY Alcohol abuse, uncomplicated ANKUR CHILDS [facility] Nov 07, 2023 03:03 PM SECONDARY Major depressive disorder, recurrent, moderate ANKUR CHILDS [facility] Plan of Treatment: Future Appointments (+ 6 months) and Future Tests (+/- 45 days) The Plan of Treatment section includes future care activities for the patient [facility] [place] [facility] This section includes future appointments and future orders which are active, pending or scheduled. Future Appointments This section includes appointments that were scheduled to occur 6 months from the date of the Encounter, up to a maximum of 20 appointments. The data comes from all [place] treatment facilities. Appointment Date/Time Appointment Type Appointme nt Facility Name Nov 08, 2023 10:00 AM AMBULATORY - PSYCHIATRY [facility] Nov 08, 2023 11:00 AM AMBULATORY - PSYCHIATRY [facility] Nov 08, 2023 01:00 PM AMBULATORY - PSYCHIATRY [facility] Nov 08, 2023 02:00 PM AMBULATORY - PSYCHIATRY [facility] Nov 09, 2023 10:00 AM AMBULATORY - PSYCHIATRY [facility] Nov 09, 2023 11:00 AM AMBULATORY - PSYCHIATRY [facility] Nov 09, 2023 01:00 PM AMBULATORY - PSYCHIATRY [facility] Nov 09, 2023 02:00 PM AMBULATORY - PSYCHIATRY [facility] Nov 10, 2023 10:00 AM AMBULATORY - PSYCHIATRY [facility] Nov 10, 2023 11:00 AM AMBULATORY - PSYCHIATRY [facility] Nov 10, 2023 01:00 PM AMBULATORY - PSYCHIATRY [facility] Nov 10, 2023 02:00 PM AMBULATORY - PSYCHIATRY [facility] Nov 11, 2023 08:10 AM AMBULATORY - PSYCHIATRY [facility] Nov 11, 2023 11:00 AM AMBULATORY - PSYCHIATRY [facility] Nov 11, 2023 01:00 PM AMBULATORY - PSYCHIATRY [facility] Nov 11, 2023 02:00 PM AMBULATORY - PSYCHIATRY [facility] Nov 14, 2023 09:00 AM AMBULATORY - PSYCHIATRY [facility] Nov 18, 2023 10:00 AM AMBULATORY - [facility]ATRY [facility] Nov 21, 2023 08:30 AM AMBULATORY - MEDICINE JANY APONTE [facility] Nov 21, 2023 10:00 AM AMBULATORY - PSYCHIATRY [facility] Active, Pending, and [...] of theEncounter. The data comes from all [facility]. Test Date/Time Test Type Test Details Facility Name September 23, 2023 12:52 PM Laboratory - Microbiology Order GRAM STAIN SPUTUM WC ONCE [facility] September 23, 2023 12:52 PM Laboratory - Microbiology Order CULTURE & SUSCEPTIBILITY SPUTUM WC ONCE [facility] September 29, 2023 05:30 AM Laboratory - Blood Bank Order TYPE & SCREEN - LAB BLOOD LC [facility] Lab Results: +/- 30 days of the encounter This section includes the Chemistry and Hematology Lab Results on record with [place] for the patient. Radiology Reports and Pathology Reports are provided separately, in subsequent sections. Lab Results This section contains the Chemistry/Hematology Results that were resulted 30 days before or 30 daysafter the date of the Encounter. Date/Time Source Result Type Result - Unit Interpretation Reference Range Specimen Type Comment Nov 07, 2023 06:42 AM [employer] ([facility]) DRUG SCREEN PANEL, SEMI-QUANT URINE URINE Spe cimen Type: URINE Comment: Screening results should not be used for non-medical purposes Ordering Provider: SURINDER OMALLEY Report Released Date/Time: Nov 07, 2023 01:33 AM Reporting Lab: [address] [phone] Performing Lab: [address] [phone] AMPHETAMINES-URINE Negative Negative BARBITURATES-URINE Negative Negative BENZODIAZEPINES-URINE Negative Negative CANNABINOIDS-URINE Negative Negative COCAINE-URINE Negative Negative METHADONE-URINE Negative Negative OPIATES-URINE Negative Negative OXYCODONE-URINE Negative Negative ALCOHOL-URINE Negative Negative URINE CREATININE, DOA 48.6 mg/dL >20 TRAMADOL-URINE Negative Negative FENTANYL-URINE Negative Negative PHENCYCLIDINE-URINE Negative Negative Nov 03, 2023 10:05 AM [facility] ([place]) DRUG SCREEN PANEL, SEMI-QUANT URINE URINE Specimen Type: URINE Comment: Screening results should not be used for non-medical purposes Ordering Provider: SURINDER OMALLEY Report Released Date/Time: Nov 03, 2023 12:44 AM Reporting Lab: [address] [phone] Performing Lab: [address] [phone] AMPHETAMINES-URINE Negative Negative BARBITURATES-URINE Negative Negative BENZODIAZEPINES-URINE Negative Negative CANNABINOIDS-URINE Negative Negative COCAINE-URINE Negative Negative METHADONE-URINE Negative Negative OPIATES-URINE Negative Negative OXYCODONE-URINE Negative Negative ALCOHOL-URINE Negative Negative URINE CREATININE, DOA 121.8 mg/dL >20 TRAMADOL-URINE Negative Negative FENTANYL-URINE Negative Negative PHENCYCLIDINE-URINE Negative Negative Oct 24, 2023 09:20 AM [email or web address] ([place]) DRUG SCREEN PANEL, SEMI-QUANT URINE URINE Specimen Type: URINE Comment: Screening results should not be used for non-medical purposes Ordering Provider: SURINDER OMALLEY Report Released Date/Time: Oct 24, 2023 12:57 AM Reporting Lab: [address] [phone] Performing Lab: [address] [phone] AMPHETAMINES-URINE Negative Negative BARBITURATES-URINE Negative Negative BENZODIAZEPINES-URINE Negative Negative CANNABINOIDS-URINE Negative Negative COCAINE-URINE Negative Negative METHADONE-URINE Negative Negative OPIATES-URINE Negative Negative OXYCODONE-URINE Negative Negative ALCOHOL-URINE Negative Negative URINE CREATININE, DOA 64.7 mg/dL >20 TRAMADOL-URINE Negative Negative FENTANYL-URINE Negative Negative PHENCYCLIDINE-URINE Negative Negative Oct 18, 2023 10:10 AM [email or web address] ([place]) DRUG SCREEN PANEL, SEMI-QUANT URINE URINE Specimen Type: URINE Comment: Screening results should not be used for non-medical purposes Ordering Provider: SURINDER OMALLEY Report Released Date/Time: Oct 18, 2023 12:58 AM Reporting Lab: [address] [phone] Performing Lab: [address] [phone] AMPHETAMINES-URINE Negative Negative BARBITURATES-URINE Negative Negative BENZODIAZEPINES-URINE Negative Negative CANNABINOIDS-URINE Negative Negative COCAINE-URINE Negative Negative METHADONE-URINE Negative Negative OPIATES-URINE Negative Negative OXYCODONE-URINE Negative Negative ALCOHOL-URINE Negative Negative URINE CREATININE, DOA 154.9 mg/dL >20 TRAMADOL-URINE Negative Negative FENTANYL-URINE Negative Negative PHENCYCLIDINE-URINE Negative Negative Oct 18, 2023 07:25 AM [facility] ([place]) MAGNESIUM PLASMA Specimen Type: PLASMA No comment entered. Ordering Provider: SURINDER OMALLEY Report Released Date/Time: October 13, 2023 09:48 AM Reporting Lab: [address] Performing Lab: [address] MAGNESIUM 1.6 mg/dL 1.6-2.6 October 13, 2023 06:20 AM [facility] ([facility]) QFTB-PANEL PLASMA Specimen Type: PLASMA Comment: A [...] October 12, 2023 03:25 PM Reporting Lab: [address] Performing Lab: [facility] [phone] .QNT NIL (LIAISON) 0.04 [IU]/mL .QNT TB1-NIL LIAISON 0.05 [IU]/mL .QNT TB2-NIL LIAISON 0.01 [IU]/mL .QNT MITOGEN LIAISON 9.96 [IU]/mL .QNT FINAL INTERP NEGATIVE See Interp October 13, 2023 06:20 AM [facility] ([facility]) HEPATIC PANEL PLASM A Specimen Type: PLASMA Comment: Glucose results >300 mg/dL OR Total Protein >10 g/dL may interfere with Creatinine result Ordering Provider: SURINDER OMALLEY Report Released Date/Time: October 12, 2023 03:25 PM Reporting Lab: [address] Performing Lab: [address] PROTEIN, TOTAL 6.3 g/dL 6.0-8.2 ALBUMIN 3.2 g/dL L 3.5-5.0 TOT. BILIRUBIN 0.5 mg/dL 0.1-1.5 DIR. BILIRUBIN 0.2 mg/dL 0.0-0.5 ALKALINE PHOSPHATASE 107 U/L 40-134 AST/SGOT 22 U/L 5-40 ALT/SGPT 19 U/L 0-55 October 13, 2023 06:20 AM [facility] ([facility]) RENAL PROFILE PLASM A Specimen Type: PLASMA Comment: Glucose results >300 mg/dL OR Total Protein >10 g/dL may interfere with Creatinine result Ordering Provider: SURINDER OMALLEY Report Released Date/Time: October 12, 2023 03:25 PM Reporting Lab: [address] Performing Lab: [address] CREATININE 1.0 mg/dL 0.5-1.5 UREA NITROGEN 12 mg/dL 5-23 SODIUM 141 mmol/L 136-145 POTASSIUM 3.7 mmol/L 3.5-5.0 CHLORIDE 104 mmol/L 98-107 CO2 28 meq/L 20-30 CALCIUM 8.9 mg/dL 8.4-10.4 GLUCOSE, RANDOM 92 mg/dL 70-180 EGFR (CKD-EPI 2020) 88 mL/min/{1.73_m2} >60 October 13, 2023 06:20 AM [facility] ([facility]) CBC ([id number]) BLOOD Specimen Type: BLOOD No comment entered. Ordering Provider: SURINDER OMALLEY Report Released Date/Time: October 12, 2023 03:25 PM Reporting Lab: [address] Performing Lab: [address] IG% 0.5 <0.6 IG# 0.04 10*3/uL <0.10 WBC ([id number]) 7.62 10*3/uL 4.0-11.0 RBC ([id number]) 3.77 10*6/uL L 4.6-6.2 HGB ([id number]) 13.0 g/dL L 13.5-17.9 HCT ([id number]) 38.5 L 41.0-54.0 MCV ([id number]) 102.1 fL H 80.0-100.0 MCH ([id number]) 34.5 pg H 27.0-33.0 MCHC ([id number]) 33.8 g/dL 32.0-36.5 PLT ([id number]) 269 10*3/uL 150-450 RDW-CV ([id number]) 11.4 L 11.5-14.5 MPV ([id number]) 9.0 fL L 9.4-12.4 LYMPHS % ([id number]) 39.5 15.0-45.0 LYMPHS # 3.01 10*3/uL 1.00-4.00 MONO % (GP1523) 6.7 2.0-12.0 MONO # 0.51 10*3/uL 0.10-1.00 EOS % ([id number]) 4.6 <6.0 EOS # 0.35 10*3/uL <0.50 BASO % ([id number]) 1.0 <2.0 BASO # 0.08 10*3/uL <0.20 NEUT % ([id number]) 47.7 40.0-80.0 NEUT # 3.63 10*3/uL 2.00-7.70 NRBC ([id number]) 0.0 <0 October 13, 2023 06:20 AM [facility] ([facility]) VITAMIN D 25-HYDROXY (TOTAL) SERUM Sp ecimen Type: SERUM Comment: Total Protein results >12 g/dL may interfere with Vitamin D result Ordering Provider: SURINDER OMALLEY Report Released Date/Time: October 12, 2023 03:25 PM Reporting Lab: [address] [phone] Performing Lab: [address] [phone] VITAMIN D 25-HYDROXY (TOTAL) 16.1 ng/mL L 30.0-100.0 October 13, 2023 06:20 AM [facility] ([facility]) MAGNESIUM PLASMA Specimen Type: PLASMA Comment: Glucose results >300 mg/dL OR Total Protein >10 g/dL may interfere with Creatinine result Ordering Provider: SURINDER OMALLEY Report Released Date/Time: October 12, 2023 03:25 PM Reporting Lab: [address] Performing Lab: [address] MAGNESIUM 1.3 mg/dL L 1.6-2.6 October 13, 2023 06:20 AM [facility] ([place]) HIV 1/2 ANTIGEN/ANTIBODY SERUM Specim [...] October 13, 2023 11:18 AM Reporting Lab: [address] [phone] Performing Lab: [address] [phone] HIV 1/2 ANTIGEN/ANTIBODY NONREACTIVE NON REACTIVE October 13, 2023 06:20 AM [facility] ([facility]) HEPATITIS C ANTIBODY SERUM Specimen T ype: [...] October 13, 2023 11:18 AM Reporting Lab: [address] [phone] Performing Lab: [address] [phone] HEPATITIS C ANTIBODY NONREACTIVE NONREAC TIVE October 12, 2023 04:15 PM [facility] DRUG SCREEN PANEL, SEMI-QUANT URINE URINE Specimen Type: URINE Comment: Screening results should not be used for non-medical purposes Ordering Provider: SURINDER OMALLEY Report Released Date/Time: October 12, 2023 02:16 PM Reporting Lab: [address] [phone] Performing Lab: [address] [phone] AMPHETAMINES-URINE Negative Negative BARBITURATES-URINE Negative Negative BENZODIAZEPINES-URINE Negative Negative CANNABINOIDS-URINE Negative Negative COCAINE-URINE Negative Negative METHADONE-URINE Negative Negative OPIATES-URINE Negative Negative OXYCODONE-URINE Negative Negative ALCOHOL-URINE Negative Negative URINE CREATININE, DOA 119.1 mg/dL >20 TRAMADOL-URINE Negative Negative FENTANYL-URINE Negative Negative PHENCYCLIDINE-URINE Negative Negative October 12, 2023 02:30 PM [facility] COVID-19 SCREENING PANEL (CEPHEID) NASOPHARYNX Spec imen [...] terminated or revoked sooner. Cepheid GeneXpert (656) [facility]. Ordering Provider: SURINDER OMALLEY Report Released Date/Time: October 11, 2023 03:03 PM Reporting Lab: [address] [phone] Performing Lab: [address] [phone] COVID-19 (CEPHEID), PCR Negative Negativ e Social History: Smoking Status (Most current) and Tobacco Use (All prior to encounter date) This section includes the most current, and the historical, smoking and tobacco- related health factors from the [place] facility where the Encounter took place. Current Smoking Status This section includes the most current smoking, or tobacco-related health factor, from the [place] facility where the Encounter took place. Date/Time Current Smoking Status Comment Nigel terrazas Nov 25, 2005 10:34 AM CURRENT TOBACCO USER 1/2 ppd. [facility] Advance Directives: All historical and current Section Date Range: From patient's date of to the date document was created. This section includes ALL of a patient's completed or amended [place] Advance and Rescinded Directives. The entries below indicate that a directive exists for the patient, but an actual copy is not included with this document. The data comes from all [place] facilities. Date Advance Directives Provider Source Oct 31, 2023 ADVANCE DIRECTIVE HERLINDA SONG [place] ([place]) Oct 17, 2023 ADVANCE DIRECTIVE DISCUSSION PALOMO MAN [facility] May 11, 2005 ADVANCE DIRECTIVE PEDRO CAMACHO [facility] Encounter Notes: All associated encounter notes This section contains the clinical notes associated to the Encounter. Date/Time Encounter Note(s) Provider Source Nov 07, 2023 02:54 PM MENTAL HEALTH TEAM NOTE: LOCAL TITLE: MH RRTP GROUP NOTE STANDARD TITLE: MENTAL HEALTH TEAM NOTE DATE OF NOTE: NOV 07, 2023@14:54 ENTRY DATE: NOV 07, 2023@14:54:11 AUTHOR: ANKUR CHILDS COSIGNER: BO BUCKNER URGENCY: STATUS: COMPLETED [facility] Healthcare System: [facility] ([facility]) MENTAL HEALTH / SUBSTANCE USE CONTINUUM OF CARE TRACK GROUP: Coping with Shame and Guilt CLINIC: [facility] GUILT SHAME GRP CORROSION CONTROL FITTER: SERGE Kim LGSW DATE/TIME: 11/07/23 14:00 DURATION: 50 min session PARTICIPANTS: 7 S: [place] attended the Coping with Guilt and Shame Treatment group today. This is a 10 session closed group. The group lasted 50 minutes. The purpose of the group is to assist Veterans in addressing feelings of guilt and/or shame through the use of Cognitive Behavioral Therapy (CBT). The goal of the group process, including individual assignments, is to: a) learn about shame and guilt including the differences between the two and identify and reframe thoughts that lead to shame and guilt and b) learn and process more effective coping skills with assistance from the well service pump equipment operator and group members. Today in group: 1. Check ins 2. Journey out of guilt and shame 3. False and proper guilt checked-in sharing the best part of their weekend or something they are looking forward to. This shared they were looking forward to discharging. 's progress towards goal was satisfactory. shared their thoughts related to the topic discussed and accepted feedback from underwriter and other veterans. Today in group veterans reviewed journey out of guilt and shame located on pages 22-44 which focuses on how to move on and away from the shame and guilt filled mindset. Veterans also started to process the differences between false guilt and proper guilt and the different examples that go along with it located on pages 4-5. O: CALVIN JAIN is a 68-year-old, NEVER , MALE, who is SERVICE CONNECTED % - 100. was adequately groomed and casually dressed. maintained appropriate eye contact throughout today's group session. appeared oriented to person, place, time, and circumstance. [place]'s mood appeared engaged and pleasant, with congruent affect. [place] appeared receptive to the information & discussion in group. [place]'s posture was relaxed. 's speech was appropriate in content and rate. did not express suicidal ideation or homicidal ideation. A: CALVIN JAIN has been diagnosed with Posttraumatic stress disorder; Major depressive disorder, recurrent, moderate, with anxious distress; Alcohol use disorder, moderate severe; by their mental health provider. appeared attentive and alert in group today. 's level of participation in group was satisfactory as measured by appropriate participation & interaction with group members. [place] demonstrated willingness to contribute to group discussion. made satisfactory progress towards their treatment goals today. P: [place] will continue to attend the Coping with Guilt and Shame Group as scheduled. will share, as applicable and emotionally comfortable, responses from assigned homework with the group. This will have the opportunity to continue to demonstrate knowledge and use of coping skills for guilt/shame feelings by working through the group process and offering relevant and constructive feedback to other group members. Supervisory social services specialist for this 's care encounter is SERGE Durand, MITZI, who provides individual supervision to this underwriter 3-4 times per month. /ubaldo/ SERGE RODRIGUES LGSW WHEEL POLISHER Signed: 11/07/2023 15:03 /ubaldo/ SERGE DURAND LICSW CLINICAL WHEEL POLISHER Cosigned: 11/07/2023 16:13 ANKUR CHILDS [facility]
--- OUTSIDE RECORDS SUMMARY | 2023-11-11 03:30 | XMS_ITS | Encounter Summary ---
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 Date/Time Encounter Type Encounter Description Reason Provider Source Nov 11, 2023 08:30 AM OFFICE O/P EST MOD 30 MIN RRTP INDIVIDUAL ICD-10-CM F10.10 Alcohol abuse, uncomplicated JP SAMAYOA Encounter Template Text not used by [facility] Assessments - Encounter Diagnoses This section includes the primary and secondary diagnoses documented for the Encounter. Date/Time Primary/Secondary Diagnosis Diagnosis Name Provider Source Nov 11, 2023 10:40 AM PRIMARY Alcohol abuse, uncomplicated JP SAMAYOA [facility] Nov 11, 2023 10:40 AM SECONDARY Major depressive disorder, recurrent, moderate JP SAMAYOA [facility] Nov 11, 2023 10:40 AM SECONDARY Post-traumatic stress disorder, unspecified JP SAMAYOA [facility] Plan of Treatment: Future Appointments (+ 6 months) and Future Tests (+/- 45 days) The Plan of Treatment section includes future care activities for the patient from [facility]. This section includes future appointments and future orders which are active, pending or scheduled. Future Appointments This section includes appointments that were scheduled to occur 6 months from the date of the Encounter, up to a maximum of 20 appointments. The data comes from all [facility]. Appointment Date/Time Appointment Type Appointme nt Facility Name Nov 14, 2023 09:00 AM AMBULATORY - PSYCHIATRY [facility] Nov 18, 2023 10:00 AM AMBULATORY - [facility] [facility] [facility] Nov 21, 2023 08:30 AM [facility] Nov 21, 2023 10:00 AM AMBULATORY - PSYCHIATRY [facility] Dec 01, 2023 08:53 AM AMBULATORY - MEDICINE [facility] Dec 07, 2023 10:00 AM AMBULATORY - [place] [facility] [facility] Dec 14, 2023 10:00 AM AMBULATORY [place] [facility] Dec 14, 2023 04:15 PM AMBULATORY - [place] [facility] Dec 21, 2023 10:00 AM AMBULAT[place] [facility] Dec 28, 2023 10:00 AM AMBULATORY - [place] [facility] Jan 02, 2024 11:30 AM AMBULATORY - NONE [facility] Jan 04, 2024 10:00 AM AMBULATORY - [place] [facility] Jan 11, 2024 10:00 AM AMBULATORY - [place] [facility] Jan 18, 2024 10:00 AM AMBULATORY [place] [facility] Jan 25, 2024 10:00 AM AMBULATORY - [place] [facility] Jan 27, 2024 03:45 PM AMBULATORY - [place]RY [place] [facility] Feb 08, 2024 10:00 AM AMBULATORY - PSYCHIATRY [facility] Feb 10, 2024 08:30 AM [facility] Feb 15, 2024 10:00 AM AMBULATORY - PSYCHIATRY [facility] Feb 22, 2024 10:00 AM AMBULATORY - PSYCHIATRY [facility] Active, Pending, and Scheduled Orders This section includes a listing of several types of active, pending, and scheduled orders, including clinic medications orders, diagnostic test orders, procedure orders and consult orders; where the start date of the order is 45 days before the date of the Encounter or 45 days after the date of theEncounter. The data comes from all [facility]. Test Date/Time Test Type Test Details Facility Name September 29, 2023 05:30 AM Laboratory - Blood Bank Order TYPE & SCREEN - LAB BLOOD [facility] Lab Results: +/- 30 days of the encounter This section includes the Chemistry and Hematology Lab Results on record with CT for the patient. Radiology Reports and Pathology Reports are provided separately, in subsequent sections. Lab Results This section contains the Chemistry/Hematology Results that were resulted 30 days before or 30 daysafter the date of the Encounter. Date/Time Source Result Type Result - Unit Interpretation Reference Range Specimen Type Comment Nov 07, 2023 06:42 AM [facility] (DOM) DRUG SCREEN PANEL, SEMI-QUANT URINE URINE Spe cimen Type: URINE Comment: Screening results should not be used for non-medical purposes Ordering Provider: SURINDER OMALLEY Report Released Date/Time: Nov 07, 2023 01:33 AM Reporting Lab: [address] [phone] Performing Lab: [address] [address] AMPHETAMINES-URINE Negative Negative BARBITURATES-URINE Negative Negative BENZODIAZEPINES-URINE Negative Negative CANNABINOIDS-URINE Negative Negative COCAINE-URINE Negative Negative METHADONE-URINE Negative Negative OPIATES-URINE Negative Negative OXYCODONE-URINE Negative Negative ALCOHOL-URINE Negative Negative URINE CREATININE, DOA 48.6 mg/dL >20 TRAMADOL-URINE Negative Negative FENTANYL-URINE Negative Negative PHENCYCLIDINE-URINE Negative Negative Nov 03, 2023 10:05 AM [facility] (DOM) DRUG SCREEN PANEL, SEMI-QUANT URINE URINE Specimen Type: URINE Comment: Screening results should not be used for non-medical purposes Ordering Provider: SURINDER OMALLEY Report Released Date/Time: Nov 03, 2023 12:44 AM Reporting Lab: [address] [phone] Performing Lab: [address] [phone] AMPHETAMINES-URINE Negative Negative BARBITURATES-URINE Negative Negative BENZODIAZEPINES-URINE Negative Negative CANNABINOIDS-URINE Negative Negative COCAINE-URINE Negative Negative METHADONE-URINE Negative Negative OPIATES-URINE Negative Negative OXYCODONE-URINE Negative Negative ALCOHOL-URINE Negative Negative URINE CREATININE, DOA 121.8 mg/dL >20 TRAMADOL-URINE Negative Negative FENTANYL-URINE Negative Negative PHENCYCLIDINE-URINE Negative Negative Oct 24, 2023 09:[address] [facility] (DOM) DRUG SCREEN PANEL, SEMI-QUANT URINE URINE Specimen Type: URINE Comment: Screening results should not be used for non-medical purposes Ordering Provider: SURINDER OMALLEY Report Released Date/Time: Oct 24, 2023 12:57 AM Reporting Lab: [address] [phone] Performing Lab: [address] [phone] AMPHETAMINES-URINE Negative Negative BARBITURATES-URINE Negative Negative BENZODIAZEPINES-URINE Negative Negative CANNABINOIDS-URINE Negative Negative COCAINE-URINE Negative Negative METHADONE-URINE Negative Negative OPIATES-URINE Negative Negative OXYCODONE-URINE Negative Negative ALCOHOL-URINE Negative Negative URINE CREATININE, DOA 64.7 mg/dL >20 TRAMADOL-URINE Negative Negative FENTANYL-URINE Negative Negative PHENCYCLIDINE-URINE Negative Negative Oct 18, 2023 10:10 AM [facility] (DOM) DRUG SCREEN PANEL, SEMI-QUANT URINE URINE Specimen Type: URINE Comment: Screening results should not be used for non-medical purposes Ordering Provider: SURINDER OMALLEY Report Released Date/Time: Oct 18, 2023 12:58 AM Reporting Lab: [address] [phone] Performing Lab: [address] [phone] AMPHETAMINES-URINE Negative Negative BARBITURATES-URINE Negative Negative BENZODIAZEPINES-URINE Negative Negative CANNABINOIDS-URINE Negative Negative COCAINE-URINE Negative Negative METHADONE-URINE Negative Negative OPIATES-URINE Negative Negative OXYCODONE-URINE Negative Negative ALCOHOL-URINE Negative Negative URINE CREATININE, DOA 154.9 mg/dL >20 TRAMADOL-URINE Negative Negative FENTANYL-URINE Negative Negative PHENCYCLIDINE-URINE Negative Negative Oct 18, 2023 07:25 AM [facility] (DOM) MAGNESIUM PLASMA Specimen Type: PLASMA No comment entered. Ordering Provider: SURINDER OMALLEY Report Released Date/Time: October 13, 2023 09:48 AM Reporting Lab: [address] [phone] Performing Lab: [address] MAGNESIUM 1.6 mg/dL 1.6-2.6 October 13, 2023 06:20 AM [facility] (DOM) QFTB-PANEL PLASMA Specimen Type: PLASMA Comment: [...] October 12, 2023 03:25 PM Reporting Lab: [address] Performing Lab: [facility] [phone] .QNT NIL (LIAISON) 0.04 [IU]/mL .QNT TB1-NIL LIAISON 0.05 [IU]/mL .QNT TB2-NIL LIAISON 0.01 [IU]/mL .QNT MITOGEN LIAISON 9.96 [IU]/mL .QNT FINAL INTERP NEGATIVE See Interp October 13, 2023 06:20 AM [facility] ([facility]) HEPATIC PANEL PLASM A Specimen Type: PLASMA Comment: Glucose results >300 mg/dL OR Total Protein >10 g/dL may interfere with Creatinine result Ordering Provider: SURINDER OMALLEY Report Released Date/Time: October 12, 2023 03:25 PM Reporting Lab: [address] Performing Lab: [address] PROTEIN, TOTAL 6.3 g/dL 6.0-8.2 ALBUMIN 3.2 g/dL L 3.5-5.0 TOT. BILIRUBIN 0.5 mg/dL 0.1-1.5 DIR. BILIRUBIN 0.2 mg/dL 0.0-0.5 ALKALINE PHOSPHATASE 107 U/L 40-134 AST/SGOT 22 U/L 5-40 ALT/SGPT 19 U/L 0-55 October 13, 2023 06:20 AM [facility] ([facility]) CBC ([id number]) BLOOD Specimen Type: BLOOD No comment entered. Ordering Provider: SURINDER OMALLEY Report Released Date/Time: October 12, 2023 03:25 PM Reporting Lab: [address] [phone] Performing Lab: [address] [phone] IG% 0.5 <0.6 IG# 0.04 10*3/uL <0.10 WBC ([id number]) 7.62 10*3/uL 4.0-11.0 RBC ([id number]) 3.77 10*6/uL L 4.6-6.2 HGB ([id number]) 13.0 g/dL L 13.5-17.9 HCT ([id number]) 38.5 L 41.0-54.0 MCV ([id number]) 102.1 fL H 80.0-100.0 MCH ([id number]) 34.5 pg H 27.0-33.0 MCHC ([id number]) 33.8 g/dL 32.0-36.5 PLT ([id number]) 269 10*3/uL 150-450 RDW-CV ([id number]) 11.4 L 11.5-14.5 MPV ([id number]) 9.0 fL L 9.4-12.4 LYMPHS % ([id number]) 39.5 15.0-45.0 LYMPHS # 3.01 10*3/uL 1.00-4.00 MONO % ([id number]) 6.7 2.0-12.0 MONO # 0.51 10*3/uL 0.10-1.00 EOS % ([id number]) 4.6 <6.0 EOS # 0.35 10*3/uL <0.50 BASO % ([id number]) 1.0 <2.0 BASO # 0.08 10*3/uL <0.20 NEUT % ([id number]) 47.7 40.0-80.0 NEUT # 3.63 10*3/uL 2.00-7.70 NRBC ([id number]) 0.0 <0 October 13, 2023 06:20 AM [facility] ([place]) RENAL PROFILE PLASM A Specimen Type: PLASMA Comment: Glucose results >300 mg/dL OR Total Protein >10 g/dL may interfere with Creatinine result Ordering Provider: SURINDER OMALLEY Report Released Date/Time: October 12, 2023 03:25 PM Reporting Lab: [address] Performing Lab: [address] CREATININE 1.0 mg/dL 0.5-1.5 UREA NITROGEN 12 mg/dL 5-23 SODIUM 141 mmol/L 136-145 POTASSIUM 3.7 mmol/L 3.5-5.0 CHLORIDE 104 mmol/L 98-107 CO2 28 meq/L 20-30 CALCIUM 8.9 mg/dL 8.4-10.4 GLUCOSE, RANDOM 92 mg/dL 70-180 EGFR (CKD-EPI 2020) 88 mL/min/{1.73_m2} >60 October 13, 2023 06:20 AM [facility] ([facility]) MAGNESIUM PLASMA Specimen Type: PLASMA Comment: Glucose results >300 mg/dL OR Total Protein >10 g/dL may interfere with Creatinine result Ordering Provider: SURINDER OMALLEY Report Released Date/Time: October 12, 2023 03:25 PM Reporting Lab: [address] Performing Lab: [address] MAGNESIUM 1.3 mg/dL L 1.6-2.6 October 13, 2023 06:20 AM [facility] ([facility]) VITAMIN D 25-HYDROXY (TOTAL) SERUM Sp ecimen Type: SERUM Comment: Total Protein results >12 g/dL may interfere with Vitamin D result Ordering Provider: SURINDER OMALLEY Report Released Date/Time: October 12, 2023 03:25 PM Reporting Lab: [address] Performing Lab: [address] VITAMIN D 25-HYDROXY (TOTAL) 16.1 ng/mL L 30.0-100.0 October 13, 2023 06:20 AM [facility] (DOM) HEPATITIS C ANTIBODY SERUM Specimen T [...] October 13, 2023 11:18 AM Reporting Lab: [address] [phone] Performing Lab: [address] [phone] HEPATITIS C ANTIBODY NONREACTIVE NONREAC TIVE October 13, 2023 06:20 AM [facility] ([facility]) HIV 1/2 ANTIGEN/ANTIBODY SERUM Specim en Type: [...] October 13, 2023 11:18 AM Reporting Lab: [address] [phone] Performing Lab: [address] [phone] HIV 1/2 ANTIGEN/ANTIBODY NONREACTIVE NON REACTIVE Social History: Smoking Status (Most current) and Tobacco Use (All prior to encounter date) This section includes the most current, and the historical, smoking and tobacco- related health factors from the CT facility where the Encounter took place. Current Smoking Status This section includes the most current smoking, or tobacco-related health factor, from the CT facility where the Encounter took place. Date/Time Current Smoking Status Comment Facil ity Nov 25, 2005 10:34 AM CURRENT TOBACCO USER 1/2 ppd. [facility] Advance Directives: All historical and current Section Date Range: From patient's date of to the date document was created. This section includes ALL of a patient's completed or amended CT Advance and Rescinded Directives. The entries below indicate that a directive exists for the patient, but an actual copy is not included with this document. The data comes from all [facility] facilities. Date Advance Directives Provider Source Oct 31, 2023 ADVANCE DIRECTIVE CVHERLINDA JOHNSON [facility] (DOM) Oct 17, 2023 ADVANCE DIRECTIVE DISCUSSION PALOMO MAN [facility] May 11, 2006 ADVANCE DIRECTIVE PEDRO CAMACHO [facility] Encounter Notes: All associated encounter notes This section contains the clinical notes associated to the Encounter. Date/Time Encounter Note(s) Provider Source Nov 11, 2023 11:09 AM ACCOUNTING OF DISC LOSURES NOTE: LOCAL TITLE: STATE PRESCRIPTION DRUG MONITORING PROGRAM STANDARD TITLE: ACCOUNTING OF DISCLOSURES NOTE DATE OF NOTE: NOV 11, 2023@11:09:01 ENTRY DATE: NOV 11, 2023@11:09:01 AUTHOR: JP SAMAYOA EXP COSIGNER: URGENCY: STATUS: COMPLETED This PDMP query was submitted by Jp Samayoa. The clinical justification for this PDMP query is to review controlled substances prescribed outside of the [place], and any additional information that may become available, as an important component of standard clinical care, and in accordance with [facility] policy. Patient information was shared with the PDMP [place]. No prescription(s) for controlled substances outside the [facility] were found in the last 90 days. /ubaldo/ JP SAMAYOA CNP CERTIFIED NURSE PRACTITIONER Signed: 11/11/2023 11:09 JP SAMAYOA [facility] Nov 11, 2023 08:30 AM MENTAL HEALTH NOTE : LOCAL TITLE: RRTP DISCHARGE NOTE STANDARD TITLE: MENTAL HEALTH NOTE DATE OF NOTE: NOV 11, 2023@08:30 ENTRY DATE: NOV 11, 2023@10:35:50 AUTHOR: JP SAMAYOA EXP COSIGNER: URGENCY: STATUS: COMPLETED DATE OF DISCHARGE: 11/14/2023 TYPE OF DISCHARGE: OPT-SC MENTAL HEALTH DIAGNOSES: 1. Alcohol use disorder, severe 2. PTSD 3. Depression DIET AT DISCHARGE: Regular ACTIVITY AT DISCHARGE: As tolerated RESTRICTIONS AT DISCHARGE: None STATUS AT DISCHARGE: Planned discharge discussed with the . is being discharged as treatment program is complete as of 11/14/2023. attended group sessions, participated in group discussions, and met all goals and objectives of the program. DISPOSITION AT DISCHARGE: Home, address is as listed in [employer] EMPLOYMENT STATUS AT DISCHARGE: Retired, 100% VA service connected disability, Social Security] RECOMMENDATIONS FOR FOLLOW-UP: Refer to Discharge Summary PATIENT EDUCATION: Refer to discharge summary OBJECTIVE: VITAL SIGNS: BP: 130/78 (11/11/2023 07:57) Pulse: 78 (11/11/2023 07:57) Respiration: 16 (11/11/2023 07:57) Temperature: 98.1 F [36.7 C] (11/11/2023 07:57) Weight: 259 lb [117.48 kg] (11/03/2023 13:22) Height: 71.5 in [181.6 cm] (10/12/2023 14:15) BMI: 35.7 PHYSICAL EXAMINATION: GENERAL: 68 year-old, male, alert and oriented x 3, NAD HEENT: Head normocephalic and atraumatic. NECK: Supple, symmetric without obvious masses. RESPIRATORY: Clear to auscultation bilaterally, normal respiratory effort. CARDIOVASCULAR: RRR, S1, S2. No murmurs, clicks, or rubs. ABDOMEN: Soft, obese, nontender, non-distended. Active bowel sounds MUSCULOSKELETAL: Bilateral active ROM grossly intact and symmetrical. Sanger arrives in my office in a wheelchair being assisted by a volunteer SKIN: Warm, dry, intact. NEUROLOGICAL: Cranial nerves II-XII grossly intact. PSYCHOLOGICAL: Normal mood, speech, and affect. ALLERGIES: MRT5 - Allergies/ADRs [facility]AC[facility] GABE REPT EFF [id number] [facility] ZOLPIDEM [facility] KENALONE INJECTION (40 MG/ML) [facility] ZOLPIDEM DISCHARGE MEDICATIONS: - All medications and allergies were reviewed and reconciled with the . - Risks, benefits, contraindications, side effects, adverse reactions, efficacy, and potential teratogenicity (if applicable) were discussed with the , and verbalizes understanding and all questions were answered. - Requested medications were refilled for to take home upon discharge. was given a 30 day supply of requested medications and will get refills from primary care provider. - will meet with the pharmacist following this appointment and will receive a copy of current medication list at that time if desired. - For full medication list and allergies, see end of this note. The OBJECT ACTIVE MEDS INP/OPT W/SUPPLIES was NOT found...Contact IRM. Sanger is stable without any thoughts of harming self or others and is competent to manage own healthcare at this time. Sanger's questions and concerns are answered to their satisfaction today. has the phone number to the [facility] Crisis Line for emergencies. Active Inpatient, Outpatient and Clinic Medications (including Supplies): MRT5 - Allergies/ADRs FACILITY ALLERGY/ADR -------- [facility] EFF [id number] [facility] ZOLPIDEM [facility] KENALONE INJECTION (40 MG/ML) [facility] PENICILLIN [facility] ZOLPIDEM MRR1 - Med Reconciliation INCLUDED IN THIS LIST: Alphabetical list of active outpatient prescriptions dispensed from this CT (local) and dispensed from another CT or DoD facility (remote) as well as inpatient orders (local pending and active), local clinic medications, locally documented non-VA medications, and local prescriptions that have or been discontinued in the past 90 days. Non-VA Meds Last Documented On: Nov 25, 2005 NOTE The display of VA prescriptions dispensed from another CT or DoD facility (remote) is limited to active outpatient prescription entries matched to National Drug File at the originating site and may not include some items such as investigational drugs, compounds, etc. NOT INCLUDED IN THIS LIST: Medications self-entered by the patient into personal health records (i.e. [employer]) are NOT included in this list. Non-VA medications documented outside this CT, remote inpatient orders (regardless of status) and remote clinic medications are NOT included in this list. The patient and provider must always discuss medications the patient is taking, regardless of where the medication was dispensed or obtained. Remote ACETAMINOPHEN 500MG TAB TAKE TWO TABLETS BY MOUTH TWICE A DAY FOR LOW BACK AND LEFT HIP PAIN Last Filled: 06/03/23 (Active at [facility]) Rx Expiration Date: 06/02/24 Days Supply: 90 OUTPT ACETAMINOPHEN 500MG TAB (Status = Pending) TAKE TWO TABLETS BY MOUTH TWICE A DAY (MAXIMUM DOSE IS 4000MG PER DAY) Discharging from [facility] 11/14/23 Login Date: 11/11/23 Qty/Days Supply: 120/30 Refills Ordered: 0 INPT ACETAMINOPHEN 500MG TAB (Status=Active) 1000MG BY MOUTH TWICE A DAY Indication: FOR PAIN BCMA ORDER LAST ACTION: 11/11/23 06:54 GIVEN INPT ACETAMINOPHEN 500MG TAB (Status=Active) 1000MG BY MOUTH TWICE A DAY NEEDED Indication: FOR PAIN OUTPT ALOH/MGOH/SIMTH XTRA STRENGTH SUSP (Status = Pending) TAKE 15ML BY MOUTH THREE TIMES A DAY NEEDED Discharging from [facility] 11/14/23 Login Date: 11/11/23 Qty/Days Supply: 1 Refills Ordered: 0 INPT ALOH/MGOH/SIMTH XTRA STRENGTH SUSP (Status=Active) 15ML BY MOUTH THREE TIMES A DAY NEEDED Indication: FOR INDIGESTION OUTPT CHOLECALCIF 50MCG (D3-2,000UNIT) TAB (Status = Pending) TAKE ONE TABLET BY MOUTH AT 8AM Discharging from [facility] 11/14/23 Login Date: 11/11/23 Qty/Days Supply: 100/30 Refills Ordered: 0 INPT CHOLECALCIF 50MCG (D3-2,000UNIT) TAB (Status=Active) 50MCG BY MOUTH 0800 Indication: FOR VITAMIN D SUPPLEMENT BCMA ORDER LAST ACTION: 11/11/23 06:54 GIVEN INPT CHOLECALCIF 50MCG (D3-2,000UNIT) TAB (Status=Active) 50MCG BY MOUTH 1800 Indication: FOR VITAMIN D SUPPLEMENT BCMA ORDER LAST ACTION: 11/10/23 16:58 GIVEN Remote CHOLECALCIFEROL 25MCG (1,000UNIT) TAB TAKE ONE TABLET BY MOUTH EVERY DAY FOR VITAMIN D Last Filled: 09/18/23 (Active at [facility]) Rx Expiration Date: 03/31/24 Days Supply: 90 INPT CYANOCOBALAMIN 1000MCG TAB (Status=Active) 1000MCG BY MOUTH QDAY Indication: FOR VITAMIN B12 SUPPLEMENT BCMA ORDER LAST ACTION: 11/11/23 06:54 GIVEN Remote CYANOCOBALAMIN 1000MCG TAB TAKE ONE TABLET BY MOUTH EVERY DAY FOR B12 SUPPLEMENT Last Filled: 08/30/23 (Active at [facility]) Rx Expiration Date: 06/02/24 Days Supply: 90 OUTPT CYANOCOBALAMIN 1000MCG TAB (Status = Pending) TAKE ONE TABLET BY MOUTH EVERY DAY Discharging from [facility] 11/14/23 Login Date: 11/11/23 Qty/Days Supply: 100/30 Refills Ordered: 0 OUTPT CYPROHEPTADINE HCL 4MG TAB (Status = Pending) TAKE ONE-HALF TABLET BY MOUTH AT BEDTIME Discharging from [facility] 11/14/23 Login Date: 11/11/23 Qty/Days Supply: 15 Refills Ordered: 0 INPT CYPROHEPTADINE 2MG TAB UD (Status=Active) 2MG BY MOUTH AT BEDTIME Indication: FOR PTSD NIGHTMARES BCMA ORDER LAST ACTION: 11/10/23 19:53 GIVEN INPT DULOXETINE HCL 30MG EC CAP (Status=Active) 30MG BY MOUTH EVERY MORNING PTSD Indication: FOR DEPRESSION, ANXIETY, AND PAIN BCMA ORDER LAST ACTION: 11/11/23 06:54 GIVEN OUTPT DULOXETINE HCL 30MG EC CAP (Status = Pending) TAKE 1 CAPSULE BY MOUTH EVERY MORNING PTSD::Discharging from [facility] 11/14/23 Login Date: 11/11/23 Qty/Days Supply: 30/30 Refills Ordered: 0 OUTPT ESZOPICLONE 3MG TAB (Status = Pending) TAKE ONE TABLET BY MOUTH AT BEDTIME Discharging from [facility] 11/14/23 Login Date: 11/11/23 Qty/Days Supply: 30/30 Refills Ordered: 0 INPT ESZOPICLONE 3MG TAB UD (Status=Active) 3MG BY MOUTH AT BEDTIME Indication: FOR SLEEP BCMA ORDER LAST ACTION: 11/10/23 19:54 GIVEN Remote FOLIC ACID 1MG TAB TAKE ONE TABLET BY MOUTH EVERY DAY FOR FOLIC ACID SUPPLEMENT Last Filled: 08/30/23 (Active at [facility]) Rx Expiration Date: 02/09/24 Days Supply: 90 OUTPT FOLIC ACID 1MG TAB (Status = Pending) TAKE ONE TABLET BY MOUTH EVERY DAY Discharging from [facility] 11/14/23 Login Date: 11/11/23 Qty/Days Supply: 100/30 Refills Ordered: 0 INPT FOLIC ACID 1MG TAB (Status=Active) 1MG BY MOUTH QDAY Indication: FOR FOLIC ACID SUPPLEMENT BCMA ORDER LAST ACTION: 11/11/23 06:54 GIVEN INPT LIDOCAINE 2% VISCOUS/MAALOX 1:3 SUSP (Status=Active) 15ML BY MOUTH THREE TIMES A DAY NEEDED Give 15ML THREE TIMES A DAY NEEDED for GI COCKTAIL Indication: GI UPSET Remote LIDOCAINE 5% PATCH APPLY 1 PATCH TOPICALLY EVERY DAY NEEDED FOR UP TO 12 HOURS FOR PAIN IN Last Filled: 06/06/23 (Active at [facility]) Rx Expiration Date: 06/02/24 Days Supply: 30 INPT LIDOCAINE 5% PATCH (Status=Active) 1 PATCH, 5% TRANSDERMAL QDAY NEEDED APPLY TO AFFECTED AREA; REMOVE PATCH 12 HOURS AFTER PLACEMENT (12 HOURS ON AND 12 HOURS OFF) Indication: FOR PAIN Remote MAGNESIUM OXIDE 420MG TAB TAKE ONE TABLET BY MOUTH AT BEDTIME FOR MAGNESIUM SUPPLEMENT Last Filled: 08/30/23 (Active at [facility]) Rx Expiration Date: 02/08/24 Days Supply: 90 OUTPT MAGNESIUM OXIDE 420MG TAB (Status = Pending) TAKE ONE TABLET BY MOUTH AT BEDTIME Discharging from [facility] 11/14/23 Login Date: 11/11/23 Qty/Days Supply: 100/30 Refills Ordered: 0 INPT MAGNESIUM OXIDE 420MG TAB (Status=Active) 420MG BY MOUTH AT BEDTIME Indication: FOR MAGNESIUM SUPPLEMENT BCMA ORDER LAST ACTION: 11/10/23 19:53 GIVEN OUTPT MELATONIN 3MG CAP/TAB (Status = Pending) TAKE 1 BY MOUTH AT BEDTIME TAKE 1 HOUR PRIOR TO BEDTIME OR DIRECTED BY PROVIDER Discharging from [facility] 11/14/23 Login Date: 11/11/23 Qty/Days Supply: 60/30 Refills Ordered: 0 INPT MELATONIN 3MG CAP/TAB (Status=Active) 3MG BY MOUTH AT BEDTIME Indication: FOR SLEEP BCMA ORDER LAST ACTION: 11/10/23 19:53 GIVEN OUTPT MIDODRINE HCL 10MG TAB (Status = Pending) TAKE ONE TABLET BY MOUTH THREE TIMES A DAY WITH MEALS Discharging from [facility] 11/14/23 Login Date: 11/11/23 Qty/Days Supply: 90/30 Refills Ordered: 0 INPT MIDODRINE HCL 10MG TAB (Status=Active) 10MG BY MOUTH THREE TIMES A DAY WITH MEALS Indication: FOR LOW BLOOD PRESSURE BCMA ORDER LAST ACTION: 11/11/23 06:54 GIVEN Remote NALTREXONE (EQV-REVIA) 50MG TAB TAKE ONE TABLET BY MOUTH EVERY DAY FOR SOBRIETY Last Filled: 09/02/23 (Active at [facility]) Rx Expiration Date: 09/02/24 Days Supply: 30 Remote OMEPRAZOLE 40MG CAP,EC TAKE ONE CAPSULE BY MOUTH TWICE A DAY FOR HEARTBURN Last Filled: 10/05/23 (Active at [facility]) Rx Expiration Date: 01/03/24 Days Supply: 90 OUTPT OMEPRAZOLE 40MG EC CAP (Status = Pending) TAKE 1 CAPSULE BY MOUTH TWICE A DAY BEFORE MORNING AND EVENING MEAL Discharging from [facility] 11/14/23 Login Date: 11/11/23 Qty/Days Supply: 60/30 Refills Ordered: 0 INPT OMEPRAZOLE 40MG EC CAP (Status=Active) 40MG BY MOUTH TWICE A DAY BEFORE MEALS Indication: FOR STOMACH BCMA ORDER LAST ACTION: 11/11/23 06:54 GIVEN Remote PRAZOSIN HCL 1MG CAP TAKE ONE CAPSULE BY MOUTH AT BEDTIME --MAY INCREASE DOSE BY ONE CAPSULE EVERY 3 DAYS UP TO 5 CAPSULES NIGHTLY TOLERATED Last Filled: 10/12/23 (Active at [facility]) Rx Expiration Date: 08/22/24 Days Supply: 90 Remote THIAMINE 100MG TAB TAKE ONE TABLET BY MOUTH EVERY DAY FOR SUPPLEMENT Last Filled: 08/30/23 (Active at [facility]) Rx Expiration Date: 02/09/24 Days Supply: 90 OUTPT THIAMINE 100MG TAB (Status = Pending) TAKE ONE TABLET BY MOUTH EVERY DAY Discharging from [facility] 11/14/23 Login Date: 11/11/23 Qty/Days Supply: 100/30 Refills Ordered: 0 INPT THIAMINE 100MG TAB (Status=Active) 100MG BY MOUTH QDAY Indication: FOR THIAMINE DEFICIENCY BCMA ORDER LAST ACTION: 11/11/23 06:54 GIVEN Remote VORTIOXETINE 20MG TAB TAKE ONE TABLET BY MOUTH EVERY DAY Last Filled: 08/22/23 (Active at [facility]) Rx Expiration Date: 08/22/24 Days Supply: 90 SUPPLIES Discharge Patient OPT-SC Discharge Date: 11/14/23 Follow Up Station: [facility] /ubaldo/ JP SAMAYOA CNP CERTIFIED NURSE PRACTITIONER Signed: 11/11/2023 10:42 JP SAMAYOA [facility]
--- OUTSIDE RECORDS SUMMARY | 2023-11-29 05:00 | XMS_ITS | Encounter Summary ---
Author Name [facility] [place] [facility] [place] [facility] [facility] [place] Address [address] [place] [address] Care Team Providers Care Slubber Operator Name Role Phone HA HENDERSON Primary Care [...] Hurt's Name Patient's Relationship to Policy Hurt [facility] (R) MEDICARE ADVANTAGE MCR ([facility]) May 16, 2023 [id number] JEAN JAIN IN PATIENT [facility] (WNR) MEDICARE ADVANTAGE [facility] ([facility]) May 16, 2023 [id number] JEAN JAIN IN PATIENT Selected Encounter This section includes the information on record at [place] for the Encounter. Date/Time Encounter Type Encounter Description Reason Provider Source Nov 29, 2023 10:00 AM GROUP PS[facility]CHOTHERAPY [facility] ICD-10-CM F43.10 Post-traumatic stress disorder, unspecified MUNA VINCENT Encounter Template Text not used by [facility] Assessments - Encounter Diagnoses This section includes the primary and secondary diagnoses documented for the Encounter. Date/Time Primary/Secondary Diagnosis Diagnosis Name Provider Source Nov 29, 2023 03:24 PM PRIMARY Post-traumatic stress disorder, unspecified MUNA VINCENT [facility] Nov 29, 2023 03:24 PM SECONDARY Alcohol dependence, uncomplicated MUNA VINCENT [facility] Plan of Treatment: Future Appointments (+ 6 months) and Future Tests (+/- 45 days) The Plan of Treatment section includes future care activities for the [facility] [place] [facility] This section includes future appointments and future orders which are active, pending or scheduled. Future Appointments This section includes appointments that were scheduled to occur 6 months from the date of the Encounter, up to a maximum of 20 appointments. The data comes from all [place] treatment [facility]. Appointment Date/Time Appointment Type Appointme nt Facility Name Dec 01, 2023 08:53 AM AMBULATORY - MEDICINE [facility] Dec 07, 2023 10:00 AM AMBULATORY - [place]IATRY [place] [facility] Dec 14, 2023 10:00 AM AMBULATORY - [place]ATRY [place] [facility] Dec 14, 2023 04:15 PM AMBULATORY - PS[place]IATRY [place] [facility] Dec 21, 2023 10:00 AM AMBULATORY - [place]IATRY [place] [facility] Dec 28, 2023 10:00 AM AMBULATORY - PS[place]CHIATRY [place] [facility] Jan 02, 2024 11:30 AM AMBULATORY - NONE [place] [facility] Jan 04, 2024 10:00 AM AMBULATORY - PS[place]CHIATRY [place] [facility] Jan 11, 2024 10:00 AM AMBULATORY - PS[place]CHIATRY [place] [facility] Jan 18, 2024 10:00 AM AMBULATORY - PS[place]CHIATRY [place] [facility] Jan 25, 2024 10:00 AM AMBULATORY - PS[place]CHIATRY [place] [facility] Jan 27, 2024 03:45 PM AMBULATORY - PS[place]CHIATRY [place] [facility] Feb 08, 2024 10:00 AM AMBULATORY - PS[place]CHIATRY [place] [facility] Feb 10, 2024 08:30 AM [place]ORY - [place]ICINE [place] [facility] Feb 15, 2024 10:00 AM AMBULATORY - PSYCHIATRY ID [place] [facility] Feb 22, 2024 10:00 AM AMBULATORY - PS[place]CHIATRY [place] [facility] Mar 07, 2024 10:00 AM AMBULATORY - PS[place]CHIATRY [place] [facility] Mar 14, 2024 10:00 AM AMBULATORY - PS[place]CHIATRY [place] [facility] Mar 14, 2024 02:30 PM AMBULATORY - SURGERY [place] [facility] Mar 15, 2024 10:15 AM AMBULATORY - MEDICINE [facility] Active, Pending, and Scheduled Orders This section includes a listing of several types of active, pending, and scheduled orders, including clinic medications orders, diagnostic test orders, procedure orders and consult orders; where the start date of the order is 45 days before the date of the Encounter or 45 days after the date of theEncounter. The data comes from all [place] treatment facilities. Test Date/Time Test Type Test Details Facility Name Dec 29, 2023 12:00 AM Laboratory - Chemistry Order CBC BLOOD SP ONCE [facility] Dec 29, 2023 12:00 AM Laboratory - Chemistry Order COMPREHENSIVE METABOLIC PANEL+MG PLASMA SP [facility] Dec 29, 2023 12:00 AM Laboratory - Chemistry Order HEMOGLOBIN A1C BLOOD [facility] Jan 03, 2024 12:00 AM Laboratory - Chemistry Order SED RATE BLOOD [facility] Jan 03, 2024 12:00 AM Laboratory - Chemistry Order C-REACTIVE PROTEIN PLASMA [facility] Lab Results: +/- 30 days of the encounter This section includes the Chemistry and Hematology Lab Results on record with [place] for the patient. Radiology Reports and Pathology Reports are provided separately, in subsequent sections. Lab Results This section contains the Chemistry/Hematology Results that were resulted 30 days before or 30 daysafter the date of the Encounter. Date/Time Source Result Type Result - Unit Interpretation Reference Range Specimen Type Comment Nov 07, 2023 06:42 AM [facility] DRUG SCREEN PANEL, SEMI-QUANT URINE URINE Spe cimen Type: URINE Comment: Screening results should not be used for non-medical purposes Ordering Provider: SURINDER OMALLEY Report Released Date/Time: Nov 07, 2023 01:33 AM Reporting Lab: [address] [id number] Performing Lab: [address] [phone] AMPHETAMINES-URINE Negative Negative BARBITURATES-URINE Negative Negative BENZODIAZEPINES-URINE Negative Negative CANNABINOIDS-URINE Negative Negative COCAINE-URINE Negative Negative METHADONE-URINE Negative Negative OPIATES-URINE Negative Negative OXYCODONE-URINE Negative Negative ALCOHOL-URINE Negative Negative URINE CREATININE, DOA 48.6 mg/dL >20 TRAMADOL-URINE Negative Negative FENTANYL-URINE Negative Negative PHENCYCLIDINE-URINE Negative Negative Nov 03, 2023 10:05 AM [facility] ([facility]) DRUG SCREEN PANEL, SEMI-QUANT URINE URINE Specimen Type: URINE Comment: Screening results should not be used for non-medical purposes Ordering Provider: SURINDER OMALLEY Report Released Date/Time: Nov 03, 2023 12:44 AM Reporting Lab: [address] [id number] Performing Lab: [address] [phone] AMPHETAMINES-URINE Negative Negative BARBITURATES-URINE Negative Negative BENZODIAZEPINES-URINE Negative Negative CANNABINOIDS-URINE Negative Negative COCAINE-URINE Negative Negative METHADONE-URINE Negative Negative OPIATES-URINE Negative Negative OXYCODONE-URINE Negative Negative ALCOHOL-URINE Negative Negative URINE CREATININE, DOA 121.8 mg/dL >20 TRAMADOL-URINE Negative Negative FENTANYL-URINE Negative Negative PHENCYCLIDINE-URINE Negative Negative Social History: Smoking Status (Most current) and Tobacco Use (All prior to encounter date) This section includes the most current, and the historical, smoking and tobacco- related health factors from the [place] facility where the Encounter took place. Current Smoking Status This section includes the most current smoking, or tobacco-related health factor, from the [place] facility where the Encounter took place. Date/Time Current Smoking Status Comment Nigel terrazas Jun 02, 2023 11:00 AM VA-TOBACCO FORMER USER [facility] Tobacco Use History This section includes a history of the smoking, or tobacco-related health factors, that were collected on or before the date of the Encounter. The data comes from the [place] facility where the Encounter took place. Date/Time Smoking Status/Tobacco Use Comment F acility Jun 02, 2023 11:00 AM VA-TOBACCO QUIT 5 TO < 15 YRS [facility] May 21, 2022 10:30 AM VA-TOBACCO FORMER USER [facility] May 21, 2022 10:30 AM VA-TOBACCO QUIT 15 YRS OR MORE [facility] Nov 12, 2020 12:00 PM VA-TOBACCO FORMER USER [facility] Nov 12, 2020 12:00 PM VA-TOBACCO QUIT 5 TO < 15 YRS [facility] May 31, 2019 06:22 AM INPT NO TOBACCO USE IN LAST 30 D AYS [facility] Nov 08, 2017 01:55 PM VA-TOBACCO FORMER USER [facility] Nov 08, 2017 01:55 PM VA-TOBACCO QUIT 1 TO < 5 YRS [facility] May 11, 2017 12:43 PM FORMER TOBACCO USE >1Y <7Y [facility] Aug 04, 2016 10:25 AM FORMER TOBACCO USE >1Y <7Y [facility] Aug 04, 2015 11:31 AM FORMER TOBACCO USE <1Y [facility] Aug 13, 2014 10:50 AM CURRENT TOBACCO USER [facility] October 10, 2013 09:12 AM FORMER TOBACCO USER 7Y OR GREATE R [facility] May 26, 2012 10:14 AM CURRENT TOBACCO USER [facility] Nov 19, 2009 12:07 PM CURRENT TOBACCO USER [facility] Advance Directives: All historical and current Section Date Range: From patient's date of to the date document was created. This section includes ALL of a patient's completed or amended [place] Advance and Rescinded Directives. The entries below indicate that a directive exists for the patient, but an actual copy is not included with this document. The data comes from all [place] facilities. Date Advance Directives Provider Source Oct 31, 2023 ADVANCE DIRECTIVE CVIX,[facility] Oct 17, 2023 ADVANCE DIRECTIVE DISCUSSION [facility] May 11, 2006 ADVANCE DIRECTIVE PEDRO CAMACHO [facility] Encounter Notes: All associated encounter notes This section contains the clinical notes associated to the Encounter. Date/Time Encounter Note(s) Provider Source Nov 29, 2023 10:00 AM MENTAL HEALTH GROU P COUNSELING NOTE: LOCAL TITLE: MH GROUP NOTE STANDARD TITLE: MENTAL HEALTH GROUP COUNSELING NOTE DATE OF NOTE: NOV 29, 2023@10:00 ENTRY DATE: NOV 29, 2023@11:05:42 AUTHOR: MUNA VINCENT EXP COSIGNER: URGENCY: STATUS: COMPLETED Group Title: Coping Skills Group Length: 60 minutes Tuesdays 10 a.m. to 11:00 a.m. Frequency: Weekly Refrigeration Specialist(s): SERGE Terrell, MITZI Date of Attendance: 11/29/2023 [place] Length of Attendance: 60 minutes Telehealth group Number of veterans: 5 Appointment was conducted via telehealth/clinical video teleconferencing(CVT) to home. Visit conducted via [employer] video conferencing platform during COVID- 19 National Emergency in order to avoid delay in care as [place] Video Connect is not available for hybrid video/telephone groups. [place] has been informed of and verbally consented to confidentiality and its limits, including possible privacy risks using 3rd green party applications. also advised that if they are not using unlimited Wi-Fi/do not have unlimited data, they may be charged regular data rates. Data: Veterans met today over the [employer] system for a group designed to increase and improve coping skills. The topic was Distress Tolerance: PROs and CONS. Veterans checked in and helped each other out. Diagnosis: Post Traumatic Stress Disorder from combat Alcohol Use Disorder, Severe Depressive Disorder Informed consent for treatment and limits of confidentiality, in addition to limits and benefits of treatment, were reviewed with the in our initial session, at which time they indicated understanding and agreement. Risk Assessment: Protective Factors: Service Dog, family -sister in [place], sister in [place], brother [place], financially ok, not suicidal Risk Factors: SI attempt 4-5 yrs ago with shot gun. He changed his mind and talked himself out of it. Police held his weapons for a while per his request but has them back. Overall Assessment: Clinical Impression of ACUTE Risk: Low ACUTE Risk (no current intent or recent preparatory behaviors) Clinical Impression of CHRONIC Risk Levels: Intermediate CHRONIC Risk (Some chronic risk factors but also has protective factors, coping skills, articulates reason for living) Readiness to Learn: The patient's attentiveness and participation indicated that he was ready to learn. Assessment: See above /es/ SERGE RODRIGUEZ, [facility] CLINICAL SOCK LINING EXAMINER Signed: 11/29/2023 15:25 MUNA VINCENT [facility]
--- OUTSIDE RECORDS SUMMARY | 2023-11-30 05:00 | XMS_ITS | Encounter Summary ---
Author Name [facility] [place] Address [address] [place] [address] Care Team Providers Care Cotton Puller Name Role Phone HA HENDERSON Primary Care [...] Hurt's Name Patient's Relationship to Policy Hurt [facility] (R) MEDICARE ADVANTAGE MCR ([facility]) May 16, 2023 [id number] JEAN JAIN IN PATIENT [facility] (WNR) MEDICARE ADVANTAGE [facility] ([facility]) May 16, 2023 [id number] JEAN JAIN IN PATIENT Selected Encounter This section includes the information on record at [place] for the Encounter. Date/Time Encounter Type Encounter Description Reason Provider Source Nov 30, 2023 10:00 AM GROUP PSYCHOTHERAPY [facility] ICD-10-CM F43.10 Post-traumatic stress disorder, unspecified MUNA VINCENT Encounter Template Text not used by [facility] Assessments - Encounter Diagnoses This section includes the primary and secondary diagnoses documented for the Encounter. Date/Time Primary/Secondary Diagnosis Diagnosis Name Provider Source Dec 01, 2023 08:58 AM PRIMARY Post-traumatic stress disorder, unspecified MUNA VINCENT [facility] Dec 01, 2023 08:58 AM SECONDARY Alcohol dependence, uncomplicated MUNA VINCENT [facility] Dec 01, 2023 08:58 AM SECONDARY Depression, unspecified MUNA VINCENT [facility] Plan of Treatment: Future Appointments (+ 6 months) and Future Tests (+/- 45 days) The Plan of Treatment section includes future care activities for the patient from all [place] [facility]. This section includes future appointments and future orders which are active, pending or scheduled. Future Appointments This section includes appointments that were scheduled to occur 6 months from the date of the Encounter, up to a maximum of 20 appointments. The data comes from all [place] treatment facilities. Appointment Date/Time Appointment Type Appointme nt Facility Name Dec 01, 2023 08:53 AM AMBULATORY - MEDICINE [facility] Dec 07, 2023 10:00 AM [place] [place] [facility] Dec 14, 2023 10:00 AM [place] [place] [facility] Dec 14, 2023 04:15 PM AMBUL[place]ORY [place] [facility] Dec 21, 2023 10:00 AM [facility] [place] [facility] Dec 28, 2023 10:00 AM AMBULATORY [place] [facility] Jan 02, 2024 11:30 AM AMBULATORY - NONE [place] [facility] Jan 04, 2024 10:00 AM AMBUL[place]ORY [place] [facility] Jan 11, 2024 10:00 AM [place] [facility] Jan 18, 2024 10:00 AM [place] [facility] Jan 25, 2024 10:00 AM AM[place] [place] [facility] Jan 27, 2024 03:45 PM AMBULATORY [place] [facility] Feb 08, 2024 10:00 AM AM[place] [facility] Feb 10, 2024 08:30 AM [place] [facility] Feb 15, 2024 10:00 AM AMBUL[place] [place] [facility] Feb 22, 2024 10:00 AM AMBULATORY [place] [facility] Mar 07, 2024 10:00 AM AMBUL[place]ORY [place] [facility] Mar 14, 2024 10:00 AM AMBUL[place]ORY [place] [facility] Mar 14, 2024 02:30 PM AMBULATORY - SURGERY K[facility]A [facility] Mar 15, 2024 10:15 AM [facility] Active, Pending, and Scheduled Orders This section includes a listing of several types of active, pending, and scheduled orders, including clinic medications orders, diagnostic test orders, procedure orders and consult orders; where the start date of the order is 45 days before the date of the Encounter or 45 days after the date of theEncounter. The data comes from all [place] treatment facilities. Test Date/Time Test Type Test Details Facility Name Dec 29, 2023 12:00 AM Laboratory - Chemistry Order CBC BLOOD [facility] Dec 29, 2023 12:00 AM Laboratory - Chemistry Order COMPREHENSIVE METABOLIC PANEL+MG PLASMA [facility] Dec 29, 2023 12:00 AM Laboratory - Chemistry Order HEMOGLOBIN A1C BLOOD [facility] Jan 03, 2024 12:00 AM Laboratory - Chemistry Order SED RATE BLOOD [facility] Jan 03, 2024 12:00 AM Laboratory - Chemistry Order C-REACTIVE PROTEIN PLASMA [facility] Lab Results: +/- 30 days of the encounter This section includes the Chemistry and Hematology Lab Results on record with [place] for the patient. Radiology Reports and Pathology Reports are provided separately, in subsequent sections. Lab Results This section contains the Chemistry/Hematology Results that were resulted 30 days before or 30 daysafter the date of the Encounter. Date/Time Source Result Type Result - Unit Interpretation Reference Range Specimen Type Comment Nov 07, 2023 06:42 AM [facility] ([facility]) DRUG SCREEN PANEL, SEMI-QUANT URINE URINE Spe cimen Type: URINE Comment: Screening results should not be used for non-medical purposes Ordering Provider: SURINDER OMALLEY Report Released Date/Time: Nov 07, 2023 01:33 AM Reporting Lab: [address] [id number] Performing Lab: [address] [phone] AMPHETAMINES-URINE Negative Negative BARBITURATES-URINE Negative Negative BENZODIAZEPINES-URINE Negative Negative CANNABINOIDS-URINE Negative Negative COCAINE-URINE Negative Negative METHADONE-URINE Negative Negative OPIATES-URINE Negative Negative OXYCODONE-URINE Negative Negative ALCOHOL-URINE Negative Negative URINE CREATININE, DOA 48.6 mg/dL >20 TRAMADOL-URINE Negative Negative FENTANYL-URINE Negative Negative PHENCYCLIDINE-URINE Negative Negative Nov 03, 2023 10:05 AM [facility] ([facility]) DRUG SCREEN PANEL, SEMI-QUANT URINE URINE Specimen Type: URINE Comment: Screening results should not be used for non-medical purposes Ordering Provider: SURINDER OMALLEY Report Released Date/Time: Nov 03, 2023 12:44 AM Reporting Lab: [address] [id number] Performing Lab: [address] [phone] AMPHETAMINES-URINE Negative Negative BARBITURATES-URINE Negative Negative BENZODIAZEPINES-URINE [...] and tobacco- related health factors from the [place] facility where the Encounter took place. Current Smoking Status This section includes the most current smoking, or tobacco-related health factor, from the [place] facility where the Encounter took place. Date/Time Current Smoking Status Comment Nigel terrazas Jun 02, 2023 11:00 AM VA-TOBACCO FORMER USER [facility] Tobacco Use History This section includes a history of the smoking, or tobacco-related health factors, that were collected on or before the date of the Encounter. The data comes from the [place] facility where the Encounter took place. Date/Time Smoking Status/Tobacco Use Comment F acility Jun 02, 2023 11:00 AM VA-TOBACCO QUIT 5 TO < 15 YRS [facility] May 21, 2022 10:30 AM VA-TOBACCO FORMER USER [facility] May 21, 2022 10:30 AM VA-TOBACCO [...] VA-TOBACCO QUIT 1 TO < 5 YRS [facility] [...] ALL of a patient's completed or amended [place] Advance and Rescinded Directives. The entries below indicate that a directive exists for the patient, but an actual copy is not included with this document. The data comes from all [place] facilities. Date Advance Directives Provider Source Oct 31, 2023 ADVANCE DIRECTIVE HERLINDA SONG. GAYLE OUD (DOM) Oct 17, 2023 ADVANCE DIRECTIVE DISCUSSION [facility] May 11, 2006 ADVANCE DIRECTIVE PEDRO CAMACHO [facility] Encounter Notes: All associated encounter notes This section contains the clinical notes associated to the Encounter. Date/Time Encounter Note(s) Provider Source Nov 30, 2023 10:00 AM MENTAL HEALTH GROU P COUNSELING NOTE: LOCAL TITLE: MH GROUP NOTE STANDARD TITLE: MENTAL HEALTH GROUP COUNSELING NOTE DATE OF NOTE: NOV 30, 2023@10:00 ENTRY DATE: NOV 30, 2023@15:18:17 AUTHOR: MUNA VINCENT EXP COSIGNER: URGENCY: STATUS: COMPLETED Group Title: ADS Tuesday Aftercare Group Length: 90 minutes/Frequency: Once weekly seen by [employer] Number of veterans in group: 11 Modality: Supportive therapy; CBT; Motivational Interviewing, Relational Welt Treater(s): SERGE Terrell, MITZI Date of Attendance: November 30, 2023 via [employer] Conference call due to [id number]. Malcom agreed to meet by [employer] and is aware it is not secure. Scope: Relapse prevention/coping DATA: Pt participated in process-oriented group psychotherapy today. Pt was appropriate in sharing experiences (positive and negative) since last group. TOPIC: Discussed healthy communication, health relationships, self care, and relapse prevention, mindfulness Skills, coping w/ grief. Pt offered and received support to/from peers regarding issues related to coping with sobriety and problem-solving difficult/stressful situations. Education and support provided during this group on relapse prevention and coping skills. Assessment: Pt seems to grasp the concepts about this phase of recovery. Pt is currently appropriate for this level of intensity. Plan: Continue aftercare DX: Post Traumatic Stress Disorder from combat Alcohol Use Disorder, Severe Depressive Disorder reports sobriety. Veterans were fully informed on the risks and benefits of telehealth services and procedures. Veterans' consent was indicated by their choice to remain on the call. Veterans were made aware of their right to refuse telehealth services. Veterans were given the opportunity to clarify all parts of the informed consent and to ask questions as needed. Appointment was conducted via telehealth/clinical video teleconferencing (CVT) to home. Visit conducted via [employer] video conferencing platform during COVID-19 National Emergency in order to avoid delay in care as [place] [employer] is not available for hybrid video/telephone groups. Malcom has been informed of and verbally consented to confidentiality and its limits, including possible privacy risks using 3rd republican applications. Malcom also advised that if they are not using unlimited Wi-Fi/do not have unlimited data, they may be charged regular data rates. Informed consent for treatment and limits of confidentiality, in addition to limits and benefits of treatment, were reviewed with the in our initial session, at which time they indicated understanding and agreement. Risk Factors: SI attempt 4-5 yrs ago [...] factors, coping skills, articulates reason for living) /ubadlo/ SERGE RODRIGUEZ, [facility] CLINICAL BUSINESS IMPROVEMENT MANAGER Signed: 12/01/2023 08:58 MUNA VINCENT [facility]
--- OUTSIDE RECORDS SUMMARY | 2023-12-06 05:21 | XMS_ITS | Encounter Summary ---
Author Name [facility] [place] Address [address] [place] [address] Care Team Providers Care Dough Mixer Name Role Phone HA HENDERSON Primary Care [...] Relationship to Policy Hurt [facility] (R) MEDICARE ADVANTAGE MCR ([facility]) May 16, 2023 [id number] JEAN JAIN IN PATIENT [facility] (WNR) MEDICARE ADVANTAGE [facility] ([facility]) May 16, 2023 [id number] 17 JEAN JAIN IN PATIENT Selected Encounter This section includes the information on record at [place] for the Encounter. Date/Time Encounter Type Encounter Description Reason Provider Source Dec 06, 2023 10:21 AM GROUP PSYCHOTHERAPY [facility] ICD-10-CM F43.10 Post-traumatic stress disorder, unspecified MUNA VINCENT Encounter Template Text not used by VA Assessments - Encounter Diagnoses This section includes the primary and secondary diagnoses documented for the Encounter. Date/Time Primary/Secondary Diagnosis Diagnosis Name Provider Source Dec 06, 2023 12:39 PM PRIMARY Post-traumatic stress disorder, unspecified MUNA VINCENT [facility] Dec 06, 2023 12:39 PM SECONDARY Alcohol dependence, uncomplicated MUNA VINCENT [facility] Dec 06, 2023 12:39 PM SECONDARY Depression, unspecified MUNA VINCENT [facility] Plan of Treatment: Future Appointments (+ 6 months) and Future Tests (+/- 45 days) The Plan of Treatment section includes future care activities for the patient from all [place] [facility]. This section includes future appointments and future orders which are active, pending or scheduled. Future Appointments This section includes appointments that were scheduled to occur 6 months from the date of the Encounter, up to a maximum of 20 appointments. The data comes from all [place] treatment [facility]. Appointment Date/Time Appointment Type Appointme nt Facility Name Dec 07, 2023 10:00 AM [facility] Dec 14, 2023 10:00 AM [facility] Dec 14, 2023 04:15 PM [facility] Dec 21, 2023 10:00 AM [facility] [place] [facility] Dec 28, 2023 10:00 AM [place] [place] [facility] Jan 02, 2024 11:30 AM [facility]ORY - NONE [facility] Jan 04, 2024 10:00 AM [facility] Jan 11, 2024 10:00 AM [facility] [place] [facility] Jan 18, 2024 10:00 AM [place] [facility] Jan 25, 2024 10:00 AM [facility] [place] [facility] Jan 27, 2024 03:45 PM AMB[place] [place]ATRY [place] [facility] Feb 08, 2024 10:00 AM [facility] [place] [facility] Feb 10, 2024 08:30 AM [facility] Feb 15, 2024 10:00 AM [facility] Feb 22, 2024 10:00 AM [facility] [place] [facility] Mar 07, 2024 10:00 AM [facility] Mar 14, 2024 10:00 AM AM[facility] [place] [facility] Mar 14, 2024 02:30 PM AMBULATORY - SURGERY [facility] Mar 15, 2024 10:15 AM AMBULATORY - MEDICINE [facility] Mar 15, 2024 11:00 AM AMBULATORY MEDICINE [facility] Active, Pending, and Scheduled Orders This section includes a listing of several types of active, pending, and scheduled orders, including clinic medications orders, diagnostic test orders, procedure orders and consult orders; where the start date of the order is 45 days before the date of the Encounter or 45 days after the date of theEncounter. The data comes from all [facility]. Test Date/Time Test Type Test Details Facility Name Dec 29, 2023 12:00 AM Laboratory - Chemistry Order CBC BLOOD [facility] Dec 29, 2023 12:00 AM Laboratory - Chemistry Order HEMOGLOBIN A1C BLOOD [facility] Dec 29, 2023 12:00 AM Laboratory - Chemistry Order COMPREHENSIVE METABOLIC PANEL+MG PLASMA [facility] Jan 03, 2024 12:00 AM Laboratory - Chemistry Order SED RATE BLOOD [facility] Jan 03, 2024 12:00 AM Laboratory - Chemistry Order C-REACTIVE PROTEIN PLASMA [facility] Lab Results: +/- 30 days [...] Type Comment Nov 07, 2023 06:[address] [facility] ([facility]) DRUG SCREEN PANEL, SEMI-QUANT URINE URINE Spe cimen Type: URINE Comment: Screening results should not be used for non-medical purposes Ordering Provider: SURINDER OMALLEY Report Released Date/Time: Nov 07, 2023 01:33 AM Reporting Lab: [address] [id number] Performing Lab: [address] [address] AMPHETAMINES-URINE Negative Negative BARBITURATES-URINE Negative Negative BENZODIAZEPINES-URINE [...] this document. The data comes from all [place] facilities. Date Advance Directives Provider Source Oct 31, 2023 ADVANCE DIRECTIVE HERLINDA SONG (DOM) Oct 17, 2023 ADVANCE DIRECTIVE DISCUSSION SANDRA LAURENPALOMO GUARDADO [facility] May 11, 2006 ADVANCE DIRECTIVE PEDRO CAMACHO [facility] Encounter Notes: All associated encounter notes This section contains the clinical notes associated to the Encounter. Date/Time Encounter Note(s) Provider Source Dec 06, 2023 10:00 AM MENTAL HEALTH GROU P COUNSELING NOTE: LOCAL TITLE: MH GROUP NOTE STANDARD TITLE: MENTAL HEALTH GROUP COUNSELING NOTE DATE OF NOTE: DEC 06, 2023@10:00 ENTRY DATE: DEC 06, 2023@12:21:52 AUTHOR: MUNA VINCENT COSIGNER: URGENCY: STATUS: COMPLETED Group Title: Coping Skills Group Length: 60 minutes Tuesdays 10 a.m. to 11:00 a.m. Frequency: Weekly Head Of Global Strategic Partnerships(s): SERGE Terrell, MITZI Date of Attendance: 12/06/2023 Length of Attendance: 60 minutes Telehealth group Number of veterans: 7 Appointment was conducted via telehealth/clinical video teleconferencing(CVT) to home. Visit conducted via [employer] video conferencing platform during COVID- 19 National Emergency in order to avoid delay in care as [place] [employer] is not available for hybrid video/telephone groups. has been informed of and verbally consented to confidentiality and its limits, including possible privacy risks using 3rd democrat applications. [employer] also advised that if they are not using unlimited Wi-Fi/do not have unlimited data, they may be charged regular data rates. Data: Veterans met today over the [employer] system for a group designed to increase and improve coping skills. The topic was Distress Tolerance: TIPS and Distracting. Veterans checked in and helped each other [...] learn. Assessment: See above /es/ SERGE RODRIGUEZ, [facility] CLINICAL SERVICE DESK TEAM LEAD Signed: 12/07/2023 14:51 MUNA VINCENT [facility]
--- OUTSIDE RECORDS SUMMARY | 2023-12-14 05:00 | XMS_ITS | Encounter Summary ---
Author Name [facility] [place] [facility] [place] Address [address] [place] [address] Care Team Providers Care Stranding Machine Operator Helper Name Role Phone HA HENDERSON Primary Care [...] Name Patient's Relationship to Policy Hurt [facility] (R) MEDICARE ADVANTAGE MCR ([facility]) May 16, 2023 [id number] JEAN JAIN IN PATIENT [facility] (WNR) MEDICARE ADVANTAGE [facility] ([facility]) May 16, 2023 [id number] 17 JEAN JAIN IN PATIENT Selected Encounter This section includes the information on record at [place] for the Encounter. Date/Time Encounter Type Encounter Description Reason Provider Source Dec 14, 2023 10:00 AM GROUP PSYCHOTHERAPY [facility] ICD-10-CM F43.10 Post-traumatic stress disorder, unspecified MUNA VINCENT Encounter Template Text not used by VA Assessments - Encounter Diagnoses This section includes the primary and secondary diagnoses documented for the Encounter. Date/Time Primary/Secondary Diagnosis Diagnosis Name Provider Source Dec 14, 2023 12:16 PM PRIMARY Post-traumatic stress disorder, unspecified MUNA VINCENT [facility] Dec 14, 2023 12:16 PM SECONDARY Alcohol dependence, uncomplicated MUNA VINCENT [facility] Dec 14, 2023 12:16 PM SECONDARY Depression, unspecified MUNA VINCENT [facility] Plan of Treatment: Future Appointments (+ 6 months) and Future Tests (+/- 45 days) The Plan of Treatment section includes future care activities for the [facility] [place] [facility] This section includes future appointments and future orders which are active, pending or scheduled. Future Appointments This section includes appointments that were scheduled to occur 6 months from the date of the Encounter, up to a maximum of 20 appointments. The data comes from all [place] treatment facilities. Appointment Date/Time Appointment Type Appointme nt Facility Name Dec 21, 2023 10:00 AM AM[place] [facility] Dec 28, 2023 10:00 AM [place] [facility] Jan 02, 2024 11:30 [facility] Jan 04, 2024 10:00 AM [place] [facility] Jan 11, 2024 10:00 AM [place] [facility] Jan 18, 2024 10:00 AM [place] [facility] Jan 25, 2024 10:00 AM [place] [facility] Jan 27, 2024 03:45 PM [place] [facility] Feb 08, 2024 10:00 AM [place] [facility] Feb 10, 2024 08:30 AM [place] [facility] Feb 15, 2024 10:00 AM [place] [facility] Feb 22, 2024 10:00 AM [place] [facility] Mar 07, 2024 10:00 AM AM[place] [facility] Mar 14, 2024 10:00 AM [place] [facility] Mar 14, 2024 02:30 PM [facility] Mar 15, 2024 10:15 [facility] Mar 15, 2024 11:00 AM [place] [facility] Mar 21, 2024 10:00 AM [facility] Mar 28, 2024 10:00 AM [place] [facility] Apr 02, 2024 01:45 PM AM[place]UL[place]ORY - NONE [place] [facility] Active, Pending, and Scheduled Orders This section includes a listing of several types of active, pending, and scheduled orders, including clinic medications orders, diagnostic test orders, procedure orders and consult orders; where the start date of the order is 45 days before the date of the Encounter or 45 days after the date of theEncounter. The data comes from all [place] treatment facilities. Test Date/Time Test Type Test Details Facility Name Dec 29, 2023 12:00 AM Laboratory - Chemistry Order CBC BLOOD SP ONCE [facility] Dec 29, 2023 12:00 AM Laboratory - Chemistry Order COMPREHENSIVE METABOLIC PANEL+MG PLASMA SP [facility] Dec 29, 2023 12:00 AM Laboratory - Chemistry Order HEMOGLOBIN A1C BLOOD [facility] Jan 03, 2024 12:00 AM Laboratory - Chemistry Order SED RATE BLOOD SP [facility] Jan 03, 2024 12:00 AM Laboratory - Chemistry Order C-REACTIVE PROTEIN PLASMA SP [facility] Social History: Smoking Status (Most current) and Tobacco Use (All prior to encounter date) This section includes the most current, and the historical, smoking and tobacco- related health factors from the [place] facility where the Encounter took place. Current Smoking Status This section includes the most current smoking, or tobacco-related health factor, from the [place] facility where the Encounter took place. Date/Time Current Smoking Status Comment Nigel ity Jun 02, 2023 11:00 AM VA-TOBACCO FORMER USER [facility] Tobacco Use History This section includes a history of the smoking, or tobacco-related health factors, that were collected on or before the date of the Encounter. The data comes from the [place] facility where the Encounter took place. Date/Time Smoking Status/Tobacco Use Comment F acility Jun 02, 2023 11:00 AM VA-TOBACCO QUIT 5 TO < 15 YRS [facility] May 21, 2022 10:30 AM VA-TOBACCO FORMER USER [facility] May 21, 2022 10:30 AM VA-TOBACCO QUIT 15 YRS OR MORE [facility] Nov 12, 2020 12:00 PM VA-TOBACCO FORMER USER [facility] Nov 12, 2020 12:00 PM [place]-TO[place]ACCO QUIT 5 TO < 15 YRS [facility] May 31, 2019 06:22 AM INPT NO TOBACCO USE IN LAST 30 D AYS [facility] Nov 08, 2017 01:55 PM VA-TOBACCO FORMER USER [facility] Nov 08, 2017 01:55 PM VA-TOBACCO QUIT 1 TO < 5 YRS [facility] May 11, 2017 12:43 PM FORMER TOBACCO USE >1Y <7Y [facility] Aug 04, 2016 10:25 AM FORMER TOBACCO USE >1Y <7Y [facility] Aug 04, 2015 11:31 AM FORMER TOBACCO USE <1Y [facility] Aug 13, 2014 10:50 AM CURRENT TOBACCO USER [facility] October 10, 2013 09:12 AM FORMER TOBACCO USER 7Y OR GREATE R [facility] May 26, 2012 10:14 AM CURRENT TOBACCO USER [facility] Nov 19, 2009 12:07 PM CURRENT TOBACCO USER [facility] Advance Directives: All historical and current Section Date Range: From patient's date of to the date document was created. This section includes ALL of a patient's completed or amended [place] Advance and Rescinded Directives. The entries below indicate that a directive exists for the patient, but an actual copy is not included with this document. The data comes from all [place] facilities. Date Advance Directives Provider Source Oct 31, 2023 ADVANCE DIRECTIVE CVIX[facility] ([place]) Oct 17, 2023 ADVANCE DIRECTIVE DISCUSSION [facility], [facility] ADVANCE DIRECTIVE PEDRO CAMACHO [facility] Encounter Notes: All associated encounter notes This section contains the clinical notes associated to the Encounter. Date/Time Encounter Note(s) Provider Source Dec 14, 2023 10:00 AM MENTAL HEALTH GROU P COUNSELING NOTE: LOCAL TITLE: MH GROUP NOTE STANDARD TITLE: MENTAL HEALTH GROUP COUNSELING NOTE DATE OF NOTE: DEC 14, 2023@10:00 ENTRY DATE: DEC 14, 2023@10:38:21 AUTHOR: MUNA VINCENT EXP COSIGNER: URGENCY: STATUS: COMPLETED Group Title: ADS Tuesday Aftercare Group Length: 90 minutes/Frequency: Once weekly [place] seen by [employer] Number of veterans in group: 8 Modality: Supportive therapy; CBT; Motivational Interviewing, Relational Hydraulic Strainer Operator(s): SERGE Terrell, SECURITY SYSTEMS TECHNICIAN Date of Attendance: December 14, 2023 via [employer] Conference call due to [id number]. [place] agreed to meet by [employer] and is aware it is not secure. [...] combat Alcohol Use Disorder, Severe Depressive Disorder [place] reports sobriety. Veterans were fully informed on [...] teleconferencing (CVT) to home. Visit conducted via [employer] video conferencing platform during COVID-19 National Emergency in order to avoid delay in care as [place] Video Connect is not available for hybrid video/telephone groups. has been informed of and verbally consented to confidentiality and its limits, including possible privacy risks using 3rd republican applications. [place] also advised that if they are not [...] factors, coping skills, articulates reason for living) /es/ SERGE RODRIGUEZ, [facility] CLINICAL ENGINE DYNAMOMETER TESTER Signed: 12/14/2023 12:18 MUNA VINCENT [facility]
--- OUTSIDE RECORDS SUMMARY | 2023-12-28 05:00 | XMS_ITS | Encounter Summary ---
Author Name [facility] [place] Address [address] [place] [address] Care Team Providers Care Director Of District Office Name Role Phone HA HENDERSON Primary Care [...] Name Patient's Relationship to Policy Hurt [facility] (R) MEDICARE ADVANTAGE MCR ([facility]) May 16, 2023 [id number] JEAN JAIN IN PATIENT [facility] (WNR) MEDICARE ADVANTAGE [facility] ([facility]) May 16, 2023 [id number] 17 JEAN JAIN IN PATIENT Selected Encounter This section includes the information on record at [place] for the Encounter. Date/Time Encounter Type Encounter Description Reason Provider Source Dec 28, 2023 10:00 AM GROUP PSYCHOTHERAPY [facility] ICD-10-CM F43.10 Post-traumatic stress disorder, unspecified MUNA VINCENT Encounter Template Text not used by VA Assessments - Encounter Diagnoses This section includes the primary and secondary diagnoses documented for the Encounter. Date/Time Primary/Secondary Diagnosis Diagnosis Name Provider Source Dec 28, 2023 12:20 PM PRIMARY Post-traumatic stress disorder, unspecified MUNA VINCENT [facility] Dec 28, 2023 12:20 PM SECONDARY Alcohol dependence, uncomplicated MUNA VINCENT [facility] Dec 28, 2023 12:20 PM SECONDARY Depression, unspecified MUNA VINCENT [facility] Plan of Treatment: Future Appointments (+ 6 months) and Future Tests (+/- 45 days) The Plan of Treatment section includes future care activities for the patient from all [place] [facility]. This section includes future appointments and future orders which are active, pending or scheduled. Future Appointments This section includes appointments that were scheduled to occur 6 months from the date of the Encounter, up to a maximum of 20 appointments. The data comes from all [place] treatment facilities. Appointment Date/Time Appointment Type Appointme nt Facility Name Jan 02, 2024 11:30 AM [place]ORY - [place] [facility] Jan 04, 2024 10:00 AM [facility] [place] [facility] Jan 11, 2024 10:00 [facility] Jan 18, 2024 10:00 AM [place] [facility] Jan 25, 2024 10:00 AM [place] [facility] Jan 27, 2024 03:45 PM [place] [facility] Feb 08, 2024 10:00 AM [place] [facility] Feb 10, 2024 08:30 AM [facility] Feb 15, 2024 10:00 AM [place] [facility] Feb 22, 2024 10:00 AM [place] [facility] Mar 07, 2024 10:00 AM [place] [facility] Mar 14, 2024 10:00 AM [place] [facility] Mar 14, 2024 02:30 PM AM[facility]UL[facility]ORY [facility] [place] [facility] [facility] Mar 15, 2024 10:15 AM [facility] Mar 15, 2024 11:00 [facility] Mar 21, 2024 10:00 AM [place] [facility] Mar 28, 2024 10:00 AM [place] [facility] Apr 02, 2024 01:45 PM [facility] Apr 04, 2024 10:00 AM [place] [facility] Apr 13, 2024 01:15 PM AMBULATORY - NONE [facility] Active, Pending, and Scheduled Orders This section includes a listing of several types of active, pending, and scheduled orders, including clinic medications orders, diagnostic test orders, procedure orders and consult orders; where the start date of the order is 45 days before the date of the Encounter or 45 days after the date of theEncounter. The data comes from all [place] treatment facilities. Test Date/Time Test Type Test Details Facility Name Dec 29, 2023 12:00 AM Laboratory - Chemistry Order COMPREHENSIVE METABOLIC PANEL+MG PLASMA SP [facility] Dec 29, 2023 12:00 AM Laboratory - Chemistry Order HEMOGLOBIN A1C BLOOD SP [facility] Dec 29, 2023 12:00 AM Laboratory - Chemistry Order CBC BLOOD SP ONCE [facility] Jan 03, 2024 12:00 AM Laboratory - Chemistry Order SED RATE BLOOD SP ONCE [facility] Jan 03, 2024 12:00 AM Laboratory - Chemistry Order C-REACTIVE PROTEIN PLASMA SP [facility] Social [...] Nigel ity Jun 02, 2023 11:00 AM [place]-TOBACCO QUIT 5 TO < 15 YRS [facility] Tobacco Use History This section includes a history of the smoking, or tobacco-related health factors, that were collected on or before the date of the Encounter. The data comes from the [place] facility where the Encounter took place. Date/Time Smoking Status/Tobacco Use Comment F acility Jun 02, 2023 11:00 AM [place]-TOBACCO QUIT 5 TO < 15 YRS [facility] May 21, 2022 10:30 AM VA-TOBACCO FORMER USER [facility] May 21, 2022 10:30 AM VA-TOBACCO QUIT 15 YRS OR MORE [facility] Nov 12, 2020 12:00 PM VA-TOBACCO FORMER USER [facility] Nov 12, 2020 12:00 PM [place]-TOBACCO QUIT 5 TO < 15 YRS [facility] May 31, 2019 06:22 AM INPT NO TOBACCO USE IN LAST 30 D AYS [facility] Nov 08, 2017 01:55 PM VA-TOBACCO FORMER USER [facility] Nov 08, 2017 01:55 PM VA-TOBACCO QUIT 1 TO < 5 YRS [facility] May 11, 2017 12:43 PM FORMER TOBACCO USE >1Y <7Y [facility] Aug 04, 2016 10:25 AM FORMER TOBACCO USE >1Y <7Y [facility] Aug 04, 2015 11:31 AM FORMER TOBACCO USE <1Y [facility] Aug 13, 2014 10:50 AM CURRENT TOBACCO USER [facility] October 10, 2013 09:12 AM FORMER TOBACCO USER 7Y OR GREATE R [facility] May 26, 2012 10:14 AM CURRENT TOBACCO USER [facility] Nov 19, 2009 12:07 PM CURRENT TOBACCO USER [facility] Advance Directives: All historical and current Section Date Range: From patient's date of to the date document was created. This section includes ALL of a patient's completed or amended [place] Advance and Rescinded Directives. The entries below indicate that a directive exists for the patient, but an actual copy is not included with this document. The data comes from all [place] facilities. Date Advance Directives Provider Source Oct 31, 2023 ADVANCE DIRECTIVE CVIX,[facility] ([place]) Oct 17, 2023 ADVANCE DIRECTIVE DISCUSSION [place] [facility] May 11, 2006 ADVANCE DIRECTIVE PEDRO CAMACHO [facility] Encounter Notes: All associated encounter notes This section contains the clinical notes associated to the Encounter. Date/Time Encounter Note(s) Provider Source Dec 28, 2023 10:00 AM MENTAL HEALTH GROU P COUNSELING NOTE: LOCAL TITLE: MH GROUP NOTE STANDARD TITLE: MENTAL HEALTH GROUP COUNSELING NOTE DATE OF NOTE: DEC 28, 2023@10:00 ENTRY DATE: DEC 28, 2023@10:33:32 AUTHOR: MUNA VINCENT EXP COSIGNER: URGENCY: STATUS: COMPLETED Group Title: ADS Tuesday Aftercare Group Length: 90 minutes/Frequency: Once weekly [place] seen by [employer] Number of veterans in group: 8 Modality: Supportive therapy; CBT; Motivational Interviewing, Relational Telephone Maintenance Mechanic(s): SERGE Terrell, TELECOMMUNICATIONS PROJECT MANAGER Date of Attendance: December 28, 2023 via [employer] Conference call due to [id number]. [place] agreed to meet by [employer] and is aware it is not secure. [...] teleconferencing (CVT) to home. Visit conducted via [employer] video conferencing platform during COVID-19 National Emergency in order to avoid delay in care as [place] Video Connect is not available for hybrid video/telephone groups. has been informed of and verbally consented to confidentiality and its limits, including possible privacy risks using 3rd green party applications. [place] also advised that if they are not [...] factors, coping skills, articulates reason for living) /ubaldo/ SERGE RODRIGUEZ, [facility] CLINICAL SCHOOL PROGRAM DIRECTOR Signed: 12/28/2023 12:21 MUNA VINCENT [facility]
--- OUTSIDE RECORDS SUMMARY | 2024-01-04 05:00 | XMS_ITS | Encounter Summary ---
Author Name [facility] [place] Address [address] [place] [address] Care Team Providers Care Jinriksha Driver Name Role Phone HA HENDERSON Primary Care [...] Patient's Relationship to Policy Hurt [facility] (R) MEDICARE ADVANTAGE MCR ([facility]) May 16, 2023 [id number] JEAN JAIN IN PATIENT [facility] (WNR) MEDICARE ADVANTAGE [facility] ([facility]) May 16, 2023 [id number] 17 JEAN JAIN IN PATIENT Selected Encounter This section includes the information on record at [place] for the Encounter. Date/Time Encounter Type Encounter Description Reason Provider Source Jan 04, 2024 10:00 AM GROUP PSYCHOTHERAPY [facility] ICD-10-CM F43.10 Post-traumatic stress disorder, unspecified MUNA VINCENT Encounter Template Text not used by [facility] Assessments - Encounter Diagnoses This section includes the primary and secondary diagnoses documented for the Encounter. Date/Time Primary/Secondary Diagnosis Diagnosis Name Provider Source Jan 04, 2024 01:18 PM PRIMARY Post-traumatic stress disorder, unspecified MUNA VINCENT [facility] Jan 04, 2024 01:18 PM SECONDARY Alcohol dependence, uncomplicated MUNA VINCENT [facility] Plan of Treatment: Future Appointments (+ 6 months) and Future Tests (+/- 45 days) The Plan of Treatment section includes future care activities for the [facility] [place] [facility] This section includes future appointments and future orders which are active, pending or scheduled. Future Appointments This section includes appointments that were scheduled to occur 6 months from the date of the Encounter, up to a maximum of 20 appointments. The data comes from all [facility]. Appointment Date/Time Appointment Type Appointme nt Facility Name Jan 11, 2024 10:00 AM AMBULATORY [place] [facility] Jan 18, 2024 10:00 AM [facility] [place] [facility] [place] [facility] Jan 25, 2024 10:00 AM [facility]UL[facility] [place] [facility] [facility] Jan 27, 2024 03:45 PM [facility]BUL[facility] [place] [facility] [facility] Feb 08, 2024 10:00 AM [facility] [place] [facility] [place] [facility] Feb 10, 2024 08:30 AM [facility] Feb 15, 2024 10:00 AM [facility] [place] [facility] [place] [facility] Feb 22, 2024 10:00 AM AM[facility]UL[facility] [place] [facility] [place] [facility] Mar 07, 2024 10:00 AM AM[facility]UL[facility] [place] [facility] [place] [facility] Mar 14, 2024 10:00 AM AMBUL[facility] [place] [facility] [place] [facility] Mar 14, 2024 02:30 PM AMBULATORY - SURGERY [facility] Mar 15, 2024 10:15 AM [facility] Mar 15, 2024 11:00 AM [facility] Mar 21, 2024 10:00 AM [facility]UL[facility] [place] [facility] Mar 28, 2024 10:00 AM AM[place]ULATORY [place] [facility] Apr 02, 2024 01:45 PM AMBULATORY - NONE [facility] Apr 04, 2024 10:00 AM AMBULATORY [place] [facility] Apr 13, 2024 01:15 PM AMBULATORY - NONE [facility] Apr 16, 2024 08:00 AM [facility] [facility] Apr 18, 2024 10:00 AM [facility] Active, Pending, and Scheduled Orders This section includes a listing of several types of active, pending, and scheduled orders, including clinic medications orders, diagnostic test orders, procedure orders and consult orders; where the start date of the order is 45 days before the date of the Encounter or 45 days after the date of theEncounter. The data comes from all [place] treatment facilities. Test Date/Time Test Type Test Details Facility Name Dec 29, 2023 12:00 AM Laboratory - Chemistry Order CBC BLOOD SP ONCE [facility] Dec 29, 2023 12:00 AM Laboratory - Chemistry Order COMPREHENSIVE METABOLIC PANEL+MG PLASMA SP [facility] Dec 29, 2023 12:00 AM Laboratory - Chemistry Order HEMOGLOBIN A1C BLOOD SP [facility] Jan 03, 2024 12:00 AM Laboratory - Chemistry Order SED RATE BLOOD SP [facility] Jan 03, 2024 12:00 AM Laboratory - Chemistry Order C-REACTIVE PROTEIN PLASMA SP [facility] Social History: Smoking Status (Most current) and Tobacco Use (All prior to encounter date) This section includes the most current, and the historical, smoking and tobacco- related health factors from the [place] facility where the Encounter took place. Current Smoking Status This section includes the most current smoking, or tobacco-related health factor, from the [place] facility where the Encounter took place. Date/Time Current Smoking Status Comment Nigel terrazas Jun 02, 2023 11:00 AM [place]-TOBACCO FORMER USER [facility] Tobacco Use History This section includes a history of the smoking, or tobacco-related health factors, that were collected on or before the date of the Encounter. The data comes from the [place] facility where the Encounter took place. Date/Time Smoking Status/Tobacco Use Comment F acility Jun 02, 2023 11:00 AM VA-TOBACCO QUIT 5 TO < 15 YRS [facility] May 21, 2022 10:30 AM VA-TOBACCO FORMER USER [facility] May 21, 2022 10:30 AM [place]-TOBACCO QUIT 15 YRS OR MORE [facility] Nov 12, 2020 12:00 PM VA-TOBACCO FORMER USER [facility] Nov 12, 2020 12:00 PM [place]-TOBACCO QUIT 5 TO < 15 YRS [facility] May 31, 2019 06:22 AM INPT NO TOBACCO USE IN LAST 30 D AYS [facility] Nov 08, 2017 01:55 PM VA-TOBACCO FORMER USER [facility] Nov 08, 2017 01:55 PM VA-TOBACCO QUIT 1 TO < 5 YRS [facility] May 11, 2017 12:43 PM FORMER TOBACCO USE >1Y <7Y [facility] Aug 04, 2016 10:25 AM FORMER TOBACCO USE >1Y <7Y [facility] Aug 04, 2015 11:31 AM FORMER TOBACCO USE <1Y [facility] Aug 13, 2014 10:50 AM CURRENT TOBACCO USER [facility] October 10, 2013 09:12 AM FORMER TOBACCO USER 7Y OR GREATE R [facility] May 26, 2012 10:14 AM CURRENT TOBACCO USER [facility] Nov 19, 2009 12:07 PM CURRENT TOBACCO USER [facility] Advance Directives: All historical and current Section Date Range: From patient's date of to the date document was created. This section includes ALL of a patient's completed or amended [place] Advance and Rescinded Directives. The entries below indicate that a directive exists for the patient, but an actual copy is not included with this document. The data comes from all [place] facilities. Date Advance Directives Provider Source Oct 31, 2023 ADVANCE DIRECTIVE CVIX[facility] ([facility] Oct 17, 2023 ADVANCE DIRECTIVE DISCUSSION [facility] May 11, 2006 ADVANCE DIRECTIVE PEDRO CAMACHO [facility] Encounter Notes: All associated encounter notes This section contains the clinical notes associated to the Encounter. Date/Time Encounter Note(s) Provider Source Jan 04, 2024 10:00 AM MENTAL HEALTH GROU P COUNSELING NOTE: LOCAL TITLE: MH GROUP NOTE STANDARD TITLE: MENTAL HEALTH GROUP COUNSELING NOTE DATE OF NOTE: JAN 04, 2024@10:00 ENTRY DATE: JAN 04, 2024@10:11:39 AUTHOR: MUNA VINCENT EXP COSIGNER: URGENCY: STATUS: COMPLETED Group Title: ADS Tuesday Aftercare Group Length: 90 minutes/Frequency: Once weekly seen by [employer] Number of veterans in group: 9 Modality: Supportive therapy; CBT; Motivational Interviewing, Relational Quality Compliance Consultant(s): SERGE Terrell, MITZI Date of Attendance: January 04, 2024 via [employer] Conference call due to [id number]. [place] agreed to meet by WE[employer] and is [...] teleconferencing (CVT) to home. Visit conducted via [employer] video conferencing platform during COVID-19 National Emergency in order to avoid delay in care as [place] Video Connect is not available for hybrid video/telephone groups. has been informed of and verbally consented to confidentiality and its limits, including possible privacy risks using 3rd alliance party applications. [place] also advised that if they are not [...] articulates reason for living) /es/ SERGE RODRIGUEZ, [employer] PAVER OPERATOR CLINICAL FLORAL ARRANGER Signed: 01/04/2024 13:19 MUNA VINCENT [facility]
--- OUTSIDE RECORDS SUMMARY | 2024-01-11 05:00 | XMS_ITS | Encounter Summary ---
Author Name [facility] [place] Address [address] [place] [address] Care Team Providers Care Crtts Name Role Phone HA HENDERSON Primary Care [...] Hurt's Name Patient's Relationship to Policy Hurt [facility] (R) MEDICARE ADVANTAGE MCR ([facility]) May 16, 2023 [id number] JEAN JAIN IN PATIENT [facility] (WNR) MEDICARE ADVANTAGE [facility] ([facility]) May 16, 2023 [id number] 17 JEAN JAIN IN PATIENT Selected Encounter This section includes the information on record at [place] for the Encounter. Date/Time Encounter Type Encounter Description Reason Provider Source Jan 11, 2024 10:00 AM GROUP PSYCHOTHERAPY [facility]GROUP ICD-10-CM F43.10 Post-traumatic stress disorder, unspecified MUNA VINCENT Encounter Template Text not used by VA Assessments - Encounter Diagnoses This section includes the primary and secondary diagnoses documented for the Encounter. Date/Time Primary/Secondary Diagnosis Diagnosis Name Provider Source Jan 11, 2024 12:06 PM PRIMARY Post-traumatic stress disorder, unspecified MUNA VINCENT [facility] Jan 11, 2024 12:06 PM SECONDARY Alcohol dependence, uncomplicated MUNA VINCENT [facility] Jan 11, 2024 12:06 PM SECONDARY Depression, unspecified MUNA VINCENT [facility] Plan of Treatment: Future Appointments (+ 6 months) and Future Tests (+/- 45 days) The Plan of Treatment section includes future care activities for the patient [facility] [place] [facility] This section includes future appointments and future orders which are active, pending or scheduled. Future Appointments This section includes appointments that were scheduled to occur 6 months from the date of the Encounter, up to a maximum of 20 appointments. The data comes from all [facility]. Appointment Date/Time Appointment Type Appointme nt Facility Name Jan 18, 2024 10:00 AM AM[facility]ULATORY [place] [facility] [facility] Jan 25, 2024 10:00 AM AMBULATORY [place] [facility] Jan 27, 2024 03:45 PM [facility] Feb 08, 2024 10:00 AM [facility] Feb 10, 2024 08:30 AM [facility] Feb 15, 2024 10:00 AM [facility] Feb 22, 2024 10:00 AM [facility] Mar 07, 2024 10:00 AM AMBULATORY - [place]IATRY [place] [facility] Mar 14, 2024 10:00 AM AMBULATORY - [place]CHIAT[place] [facility] Mar 14, 2024 02:30 PM [facility] Mar 15, 2024 10:15 AM [facility] [facility] Mar 15, 2024 11:00 AM AM[place]ULATORY - [place] [facility] Mar 21, 2024 10:00 AM AMBULATORY - PS[place]CHIATRY [place] [facility] Mar 28, 2024 10:00 AM AMBULATORY - PS[place]CHIATRY [place] [facility] Apr 02, 2024 01:45 PM AMBULATORY - NONE [place] [facility] Apr 04, 2024 10:00 AM AMBULATORY - PSYCHIATRY [place] [facility] Apr 13, 2024 01:15 PM AMBULATORY - NONE [place] [facility] Apr 16, 2024 08:00 AM [facility] Apr 18, 2024 10:00 AM AMBULATORY - PSYCHIATRY [facility] Apr 26, 2024 10:45 AM AMBULATORY - PSYCHIATRY [facility] Active, Pending, and Scheduled [...] theEncounter. The data comes from all [facility] facilities. Test Date/Time Test Type Test Details Facility Name Dec 29, 2023 12:00 AM Laboratory - Chemistry Order CBC BLOOD SP ONCE [facility] Dec 29, 2023 12:00 AM Laboratory - Chemistry Order HEMOGLOBIN A1C BLOOD [facility] Dec 29, 2023 12:00 AM Laboratory - Chemistry Order COMPREHENSIVE METABOLIC PANEL+MG PLASMA SP [facility] Jan 03, 2024 12:00 AM Laboratory - Chemistry Order SED RATE BLOOD [facility] Jan 03, 2024 12:00 AM Laboratory - Chemistry Order C-REACTIVE PROTEIN PLASMA [facility] Social History: Smoking Status (Most current) and Tobacco Use (All prior to encounter date) This section includes the most current, and the historical, smoking and tobacco- related health factors from the [place] facility where the Encounter took place. Current Smoking Status This section includes the most current smoking, or tobacco-related health factor, from the [place] facility where the Encounter took place. Date/Time Current Smoking Status Comment Nigel ity Jun 02, 2023 11:00 AM [place]-TOBACCO FORMER USER [facility] Tobacco Use History This section includes a history of the smoking, or tobacco-related health factors, that were collected on or before the date of the Encounter. The data comes from the [place] facility where the Encounter took place. Date/Time Smoking Status/Tobacco Use Comment F acility Jun 02, 2023 11:00 AM VA-TOBACCO QUIT 5 TO < 15 YRS [facility] May 21, 2022 10:30 AM VA-TOBACCO FORMER USER [facility] May 21, 2022 10:30 AM VA-TOBACCO QUIT 15 YRS OR MORE [facility] Nov 12, 2020 12:00 PM VA-TOBACCO FORMER USER [facility] Nov 12, 2020 12:00 PM VA-TOBACCO QUIT 5 TO < 15 YRS [facility] May 31, 2019 06:22 AM INPT NO TOBACCO USE IN LAST 30 D AYS [facility] Nov 08, 2017 01:55 PM VA-TOBACCO FORMER USER [facility] Nov 08, 2017 01:55 PM VA-TOBACCO QUIT 1 TO < 5 YRS [facility] May 11, 2017 12:43 PM FORMER TOBACCO USE >1Y <7Y [facility] Aug 04, 2016 10:25 AM FORMER TOBACCO USE >1Y <7Y [facility] Aug 04, 2015 11:31 AM FORMER TOBACCO USE <1Y [facility] Aug 13, 2014 10:50 AM CURRENT TOBACCO USER [facility] October 10, 2013 09:12 AM FORMER TOBACCO USER 7Y OR GREATE R [facility] May 26, 2012 10:14 AM CURRENT TOBACCO USER [facility] Nov 19, 2009 12:07 PM CURRENT TOBACCO USER [facility] Advance Directives: All historical and current Section Date Range: From patient's date of to the date document was created. This section includes ALL of a patient's completed or amended [place] Advance and Rescinded Directives. The entries below indicate that a directive exists for the patient, but an actual copy is not included with this document. The data comes from all [place] facilities. Date Advance Directives Provider Source Oct 31, 2023 ADVANCE DIRECTIVE CVIX,YADYEDCHARISER [facility] ([facility]) Oct 17, 2023 ADVANCE DIRECTIVE DISCUSSION [facility] May [facility], 2006 ADVANCE DIRECTIVE PEDRO CAMACHO [facility] Encounter Notes: All associated encounter notes This section contains the clinical notes associated to the Encounter. Date/Time Encounter Note(s) Provider Source Jan 11, 2024 10:00 AM MENTAL HEALTH GROU P COUNSELING NOTE: LOCAL TITLE: MH GROUP NOTE STANDARD TITLE: MENTAL HEALTH GROUP COUNSELING NOTE DATE OF NOTE: JAN 11, 2024@10:00 ENTRY DATE: JAN 11, 2024@10:14:35 AUTHOR: MUNA VINCENT EXP COSIGNER: URGENCY: STATUS: COMPLETED Group Title: ADS Tuesday Aftercare Group Length: 90 minutes/Frequency: Once weekly seen by [employer] Number of veterans in group: 8 Modality: Supportive therapy; CBT; Motivational Interviewing, Relational Storage Management Architect(s): SERGE Terrell, LOAN ADMINISTRATOR Date of Attendance: January 11, 2024 via [employer] Conference call due to [id number]. Mcrae Helena agreed to meet by [employer] and is aware it is not secure. [...] combat Alcohol Use Disorder, Severe Depressive Disorder Mcrae Helena reports sobriety. Veterans were fully informed on [...] teleconferencing (CVT) to home. Visit conducted via [employer] video conferencing platform during COVID-19 National Emergency in order to avoid delay in care as [place] Video Connect is not available for hybrid video/telephone groups. has been informed of and verbally consented to confidentiality and its limits, including possible privacy risks using 3rd libertarian applications. Mcrae Hel[place] also advised that if they are not [...] articulates reason for living) /es/ SERGE RODRIGUEZ, [facility] CLINICAL GRAIN WAFER MACHINE OPERATOR Signed: 01/11/2024 12:06 MUNA VINCENT [facility]
--- OUTSIDE RECORDS SUMMARY | 2024-02-08 05:00 | XMS_ITS | Encounter Summary ---
Author Name [facility] [place] Address [address] [place] [address] Care Team Providers Care General Car Yard Supervisor Name Role Phone HA HENDERSON Primary Care [...] Hurt's Name Patient's Relationship to Policy Hurt [facility] (R) MEDICARE ADVANTAGE MCR ([facility]) May 16, 2023 [id number] JEAN JAIN IN PATIENT [facility] (WNR) MEDICARE ADVANTAGE [facility] ([facility]) May 16, 2023 [id number] JEAN JAIN IN PATIENT Selected Encounter This section includes the information on record at [place] for the Encounter. Date/Time Encounter Type Encounter Description Reason Provider Source Feb 08, 2024 10:00 AM GROUP PSYCHOTHERAPY [facility] ICD-10-CM F43.12 Post-traumati c stress disorder, chronic VINCENT,MUNA R IHE Encounter Template Text not used by [facility] Assessments - Encounter Diagnoses This section includes the primary and secondary diagnoses documented for the Encounter. Date/Time Primary/Secondary Diagnosis Diagnosis Name Provider Source Feb 08, 2024 11:52 AM PRIMARY Post-traumatic stress disorder, chronic MUNA VINCENT [facility] Feb 08, 2024 11:52 AM SECONDARY Alcohol dependence, uncomplicated MUNA VINCENT [facility] Feb 08, 2024 11:52 AM SECONDARY Depression, unspecified MUNA VINCENT [facility] Plan of Treatment: Future Appointments (+ 6 months) and Future Tests (+/- 45 days) The Plan of Treatment section includes future care activities for the patient from all [place] [facility]. This section includes future appointments and future orders which are active, pending or scheduled. Future Appointments This section includes appointments that were scheduled to occur 6 months from the date of the Encounter, up to a maximum of 20 appointments. The data comes from all [facility]. Appointment Date/Time Appointment Type Appointme nt Facility Name Feb 10, 2024 08:30 AM AMBULATORY - MEDICINE [place] [facility] Feb 15, 2024 10:00 AM AMBUL[place]ORY [place] [facility] Feb 22, 2024 10:00 AM [place] [facility] Mar 07, 2024 10:00 AM [place] [facility] Mar 14, 2024 10:00 AM AM[place] [facility] Mar 14, 2024 02:30 PM AMBULATORY - SURGERY [facility] Mar 15, 2024 10:15 AM [facility] Mar 15, 2024 11:00 AM [facility] Mar 21, 2024 10:00 AM [facility] [place] [facility] Mar 28, 2024 10:00 AM [facility] Apr 02, 2024 01:45 PM [facility] Apr 04, 2024 10:00 AM [facility] Apr 13, 2024 01:15 PM [facility] Apr 16, 2024 08:00 AM [facility] Apr 18, 2024 10:00 AM [facility] Apr 26, 2024 10:45 AM [facility] May 02, 2024 10:00 AM [place] [facility] May 23, 2024 10:00 AM [facility] [place] [facility] [facility] May 30, 2024 10:00 AM AMBULATORY - PSYCHIATRY [facility] Jun 06, 2024 10:00 AM AMBULATORY - PSYCHIATRY [facility] Active, Pending, and Scheduled Orders [...] comes from all [facility] facilities. Test Date/Time Test Type Test Details Facility Name Dec 29, 2023 12:00 AM Laboratory - Chemistry Order CBC BLOOD SP ONCE [facility] Dec 29, 2023 12:00 AM Laboratory - Chemistry Order COMPREHENSIVE METABOLIC PANEL+MG PLASMA SP [facility] Dec 29, 2023 12:00 AM Laboratory - Chemistry Order HEMOGLOBIN A1C BLOOD [facility] Jan 03, 2024 12:00 AM Laboratory - Chemistry Order SED RATE BLOOD SP [facility] Jan 03, 2024 12:00 AM Laboratory - Chemistry Order C-REACTIVE PROTEIN PLASMA SP [facility] Social History: Smoking Status (Most current) and Tobacco Use (All prior to encounter date) This section includes the most current, and the historical, smoking and tobacco- related health factors from the [place] facility where the Encounter took place. Current Smoking Status This section includes the most current smoking, or tobacco-related health factor, from the [place] facility where the Encounter took place. Date/Time Current Smoking Status Comment Nigel ity Jun 02, 2023 11:00 AM VA-TOBACCO FORMER USER [facility] Tobacco Use History This section includes a history of the smoking, or tobacco-related health factors, that were collected on or before the date of the Encounter. The data comes from the [place] facility where the Encounter took place. Date/Time Smoking Status/Tobacco Use Comment F acility Jun 02, 2023 11:00 AM VA-TOBACCO QUIT 5 TO < [address] [facility] May 21, 2022 10:30 AM VA-TOBACCO FORMER USER [facility] May 21, 2022 10:30 AM VA-TOBACCO QUIT [address] [facility] Nov 12, 2020 12:00 PM VA-TOBACCO FORMER USER [facility] Nov 12, 2020 12:00 PM VA-TOBACCO QUIT 5 TO < [address] [facility] May 31, 2019 06:22 AM INPT NO TOBACCO USE IN LAST [address] [facility] Nov 08, 2017 01:55 PM VA-TOBACCO FORMER USER [facility] Nov 08, 2017 01:55 PM VA-TOBACCO QUIT 1 TO < [address] [facility] May 11, 2017 12:43 PM FORMER TOBACCO USE >1Y <7Y [facility] Aug 04, 2016 10:25 AM FORMER TOBACCO USE >1Y <7Y [facility] Aug 04, 2015 11:31 AM FORMER TOBACCO USE <1Y [facility] Aug 13, 2014 10:50 AM CURRENT TOBACCO USER [facility] October 10, 2013 09:12 AM FORMER TOBACCO USER 7Y OR GREATE R [facility] May 26, 2012 10:14 AM CURRENT TOBACCO USER [facility] Nov 19, 2009 12:07 PM CURRENT TOBACCO USER [facility] Advance Directives: All historical and current Section Date Range: From patient's date of to the date document was created. This section includes ALL of a patient's completed or amended [place] Advance and Rescinded Directives. The entries below indicate that a directive exists for the patient, but an actual copy is not included with this document. The data comes from all [place] facilities. Date Advance Directives Provider Source Oct 31, 2023 ADVANCE DIRECTIVE CVIX,[facility]AD[facility]ED[facility]ISER [facility] Oct 17, 2023 ADVANCE DIRECTIVE DISCUSSION [facility] May 11, [address] PEDRO CAMACHO [facility] Encounter Notes: All associated encounter notes This section contains the clinical notes associated to the Encounter. Date/Time Encounter Note(s) Provider Source Feb 08, 2024 10:00 AM MENTAL HEALTH GROU P COUNSELING NOTE: LOCAL TITLE: MH GROUP NOTE STANDARD TITLE: MENTAL HEALTH GROUP COUNSELING NOTE DATE OF NOTE: FEB 08, 2024@10:00 ENTRY DATE: FEB 08, 2024@10:11:01 AUTHOR: MUNA VINCENT EXP COSIGNER: URGENCY: STATUS: COMPLETED Group Title: ADS Tuesday Aftercare Group Length: 90 minutes/Frequency: Once weekly [place] seen by [facility] Number of veterans in group: 9 Modality: Supportive therapy; CBT; Motivational Interviewing, Relational Aircraft Avionics Technician(s): SERGE Terrell, MINE CAR REPAIRER Date of Attendance: February 08, 2024 via [employer] Conference call due to [id number]. agreed to meet by [facility] and is aware it is not secure. [...] teleconferencing (CVT) to home. Visit conducted via [employer]Inside video conferencing platform during COVID-19 National Emergency in order to avoid delay in care as [place] Video Connect is not available for hybrid video/telephone groups. [place] has been informed of and verbally consented to confidentiality and its limits, including possible privacy risks using 3rd libertarian applications. [place] also advised that if they are not [...] articulates reason for living) /es/ SERGE RODRIGUEZ, [facility] DIRECTOR Signed: 02/08/2024 11:[address] [facility]
--- OUTSIDE RECORDS SUMMARY | 2024-02-15 05:00 | XMS_ITS | Encounter Summary ---
Author Name [facility] [place] Address [address] [place] [address] Care Team Providers Care Telescope Repairer Name Role Phone HA HENDERSON Primary Care [...] Relationship to Policy Hurt [facility] (R) MEDICARE ADVANTAGE MCR ([facility]) May 16, 2023 [id number] JEAN JAIN IN PATIENT [facility] (WNR) MEDICARE ADVANTAGE [facility] ([facility]) May 16, 2023 [id number] 17 JEAN JAIN IN PATIENT Selected Encounter This section includes the information on record at [place] for the Encounter. Date/Time Encounter Type Encounter Description Reason Provider Source Feb 15, 2024 10:00 AM GROUP PSYCHOTHERAPY [facility]-GROUP ICD-10-CM F43.10 Post-traumatic stress disorder, unspecified MUNA VINCENT Encounter Template Text not used by VA Assessments - Encounter Diagnoses This section includes the primary and secondary diagnoses documented for the Encounter. Date/Time Primary/Secondary Diagnosis Diagnosis Name Provider Source Feb 15, 2024 11:42 AM PRIMARY Post-traumatic stress disorder, unspecified MUNA VINCENT [facility] Feb 15, 2024 11:42 AM SECONDARY Alcohol dependence, uncomplicated MUNA VINCENT [facility] Feb 15, 2024 11:42 AM SECONDARY Depression, unspecified MUNA VINCENT [facility] Plan of Treatment: Future Appointments (+ 6 months) and Future Tests (+/- 45 days) The Plan of Treatment section includes future care activities for the patient from all [place] [facility]. This section includes future appointments and future orders which are active, pending or scheduled. Future Appointments This section includes appointments that were scheduled to occur 6 months from the date of the Encounter, up to a maximum of 20 appointments. The data comes from all [facility]. Appointment Date/Time Appointment Type Appointme nt Facility Name Feb 22, 2024 10:00 AM [facility] [place] [facility] Mar 07, 2024 10:00 AM AMBULATORY - PS[place]CHIATRY [place] [facility] Mar 14, 2024 10:00 AM AMBULATORY - PS[place]CHIATRY [place] [facility] Mar 14, 2024 02:30 PM AMBULATORY - SURGERY [facility] Mar 15, 2024 10:15 AM AM[facility]ULATORY - [facility]IC[facility] [facility] Mar 15, 2024 11:00 AM [facility] Mar 21, 2024 10:00 AM [facility] Mar 28, 2024 10:00 AM AMBUL[place] [facility] Apr 02, 2024 01:45 PM [facility] Apr 04, 2024 10:00 AM [facility] Apr 13, 2024 01:15 PM [facility] Apr 16, 2024 08:00 AM [facility] Apr 18, 2024 10:00 AM AMBULATORY [place] [facility] Apr 26, 2024 10:45 AM [facility] May 02, 2024 10:00 AM AMBULATORY [place] [facility] May 23, 2024 10:00 AM AMBULATORY [place] [facility] May 30, 2024 10:00 AM AMBULATORY [place] [facility] Jun 06, 2024 10:00 AM AM[facility] [place] [facility] Jun 13, 2024 10:00 AM AMBULATORY - PSYCHIATRY [facility] Jun 15, 2024 09:30 AM AMBULATORY - MEDICINE [place] [facility] Active, Pending, and Scheduled Orders This section includes a listing of several types of active, pending, and scheduled orders, including clinic medications orders, diagnostic test orders, procedure orders and consult orders; where the start date of the order is 45 days before the date of the Encounter or 45 days after the date of theEncounter. The data comes from all [place] treatment facilities. Test Date/Time Test Type Test Details Facility Name Jan 03, 2024 12:00 AM Laboratory - Chemi stry Order SED RATE BLOOD SP ONCE [facility] Jan 03, 2024 12:00 AM Laboratory - Chemi stry Order C-REACTIVE PROTEIN PLASMA SP [facility] Social History: Smoking Status (Most [...] 02, 2023 11:00 AM VA-TOBACCO FORMER USER [facility] Tobacco Use History This section includes a history of the smoking, or tobacco-related health factors, that were collected on or before the date of the Encounter. The data comes from the [place] facility where the Encounter took place. Date/Time Smoking Status/Tobacco Use Comment F acility Jun 02, 2023 11:00 AM VA-TOBACCO QUIT 5 TO < 15 YRS [facility] May 21, 2022 10:30 AM VA-TOBACCO FORMER USER [facility] May 21, 2022 10:30 AM VA-TOBACCO QUIT 15 YRS OR MORE [facility] Nov 12, 2020 12:00 PM VA-TOBACCO FORMER USER [facility] Nov 12, 2020 12:00 PM [place]-TOBACCO QUIT 5 TO < 15 YRS [facility] May 31, 2019 06:22 AM INPT NO TOBACCO USE IN LAST 30 D AYS [facility] Nov 08, 2017 01:55 PM VA-TOBACCO FORMER USER [facility] Nov 08, 2017 01:55 PM VA-TOBACCO QUIT 1 TO < 5 YRS [facility] May 11, 2017 12:43 PM FORMER TOBACCO USE >1Y <7Y [facility] Aug 04, 2016 10:25 AM FORMER TOBACCO USE >1Y <7Y [facility] Aug 04, 2015 11:31 AM FORMER TOBACCO USE <1Y [facility] Aug 13, 2014 10:50 AM CURRENT TOBACCO USER [facility] October 10, 2013 09:12 AM FORMER TOBACCO USER 7Y OR GREATE R [facility] May 26, 2012 10:14 AM CURRENT TOBACCO USER [facility] Nov 19, 2009 12:07 PM CURRENT TOBACCO USER [facility] Advance Directives: All historical and [...] May 11, 2006 ADVANCE DIRECTIVE PEDRO CAMACHO [facility] Encounter Notes: All associated encounter notes This section contains the clinical notes associated to the Encounter. Date/Time Encounter Note(s) Provider Source Feb 15, 2024 10:00 AM MENTAL HEALTH GROU P COUNSELING NOTE: LOCAL TITLE: MH GROUP NOTE STANDARD TITLE: MENTAL HEALTH GROUP COUNSELING NOTE DATE OF NOTE: FEB 15, 2024@10:00 ENTRY DATE: FEB 15, 2024@10:13:10 AUTHOR: MUNA VINCENT COSIGNER: URGENCY: STATUS: COMPLETED Group Title: ADS Tuesday Aftercare Group Length: 90 minutes/Frequency: Once weekly [place] seen by [facility] Number of veterans in group: 8 Modality: Supportive therapy; CBT; Motivational Interviewing, Relational Insurance Sales Specialist(s): SERGE Terrell, MITZI Date of Attendance: February 15, 2024 via [employer] Conference call due to [id number]. [place] agreed to meet by [employer] and is [...] combat Alcohol Use Disorder, Severe Depressive Disorder [place] reports sobriety. Veterans were fully informed on [...] teleconferencing (CVT) to home. Visit conducted via [employer]It video conferencing platform during COVID-19 National Emergency in order to avoid delay in care as [place] [employer] Connect is not available for hybrid video/telephone groups. has been informed of and verbally consented to confidentiality and its limits, including possible privacy risks using 3rd libertarian applications. [place] also advised that if they are not using unlimited Wi-Fi/do not have unlimited data, they may be charged regular data rates. Informed consent for treatment and limits of confidentiality, in addition to limits and benefits of treatment, were reviewed with the in our initial session, at which time they indicated understanding and agreement. Risk Assessment: Protective Factors: Service Dog, family -sister in [place], sister in [place], brother [place], financially ok, not suicidal Risk Factors: SI [...] articulates reason for living) /ubaldo/ SERGE RODRIGUEZ, [facility] CLINICAL PRODUCT MANUFACTURING PROFESSIONAL Signed: 02/15/2024 11:43 MUNA VINCENT [facility]
--- OUTSIDE RECORDS SUMMARY | 2024-02-22 05:00 | XMS_ITS | Encounter Summary ---
Author Name [place] Address [address] [place] [address] Care Team Providers Care Content Strategist Name Role Phone HA HENDERSON Primary Care [...] Patient's Relationship to Policy Hurt [facility] (R) MEDICARE ADVANTAGE MCR ([facility]) May 16, 2023 [id number] JEAN JAIN IN PATIENT [facility] (WNR) MEDICARE ADVANTAGE [facility] ([facility]) May 16, 2023 [id number] 17 JEAN JAIN IN PATIENT Selected Encounter This section includes the information on record at [place] for the Encounter. Date/Time Encounter Type Encounter Description Reason Provider Source Feb 22, 2024 10:00 AM GROUP PSYCHOTHERAPY [facility] ICD-10-CM F43.12 Post-traumati c stress disorder, chronic VINCENT,MUNA R IHE Encounter Template Text not used by VA Assessments - Encounter Diagnoses This section includes the primary and secondary diagnoses documented for the Encounter. Date/Time Primary/Secondary Diagnosis Diagnosis Name Provider Source Feb 22, 2024 11:54 AM PRIMARY Post-traumatic stress disorder, chronic MUNA VINCENT [facility] Feb 22, 2024 11:54 AM SECONDARY Alcohol dependence, uncomplicated MUNA VINCENT [facility] Feb 22, 2024 11:54 AM SECONDARY Depression, unspecified MUNA VINCENT [facility] Plan of Treatment: Future Appointments (+ 6 months) and Future Tests (+/- 45 days) The Plan of Treatment section includes future care activities for the patient from all [place] [facility]. This section includes future appointments and future orders which are active, pending or scheduled. Future Appointments This section includes appointments that were scheduled to occur 6 months from the date of the Encounter, up to a maximum of 20 appointments. The data comes from all [facility]. Appointment Date/Time Appointment Type Appointme nt Facility Name Mar 07, 2024 10:00 AM [facility] Mar 14, 2024 10:00 AM AMBULATORY - [facility]ATRY [facility] Mar 14, 2024 02:30 PM AMBULATORY - SURGERY [facility] Mar 15, 2024 10:15 AM [facility] Mar 15, 2024 11:00 AM [facility] Mar 21, 2024 10:00 AM [facility] Mar 28, 2024 10:00 AM [facility] Apr 02, 2024 01:45 PM AMBULATORY - NONE [facility] Apr 04, 2024 10:00 AM [place] [facility] Apr 13, 2024 01:15 PM [facility] Apr 16, 2024 08:00 AM [place] [facility] Apr 18, 2024 10:00 AM [place] [facility] Apr 26, 2024 10:45 AM [place] [facility] May 02, 2024 10:00 AM [place] [facility] May 23, 2024 10:00 AM [place] [facility] May 30, 2024 10:00 AM [place] [facility] Jun 06, 2024 10:00 AM [place] [facility] Jun 13, 2024 10:00 AM [facility] [place] [facility] Jun 15, 2024 09:30 AM [facility] Jun 20, 2024 10:00 AM AMBULATORY - PSYCHIATRY [facility] Social History: Smoking Status (Most current) and Tobacco Use (All prior to encounter date) This section includes the most current, and the historical, smoking and tobacco- related health factors from the [place] facility where the Encounter took place. Current Smoking Status This section includes the most current smoking, or tobacco-related health factor, from the [place] facility where the Encounter took place. Date/Time Current Smoking Status Comment Facil ity Jun 02, 2023 11:00 AM VA-TOBACCO FORMER USER [facility] Tobacco Use History This section includes a history of the smoking, or tobacco-related health factors, that were collected on or before the date of the Encounter. The data comes from the [place] facility where the Encounter took place. Date/Time Smoking Status/Tobacco Use Comment F acility Jun 02, 2023 11:00 AM VA-TOBACCO QUIT 5 TO < [address] [facility] May 21, 2022 10:30 AM VA-TOBACCO FORMER USER [facility] May 21, 2022 10:30 AM VA-TOBACCO QUIT [address] [facility] Nov 12, 2020 12:00 PM VA-TOBACCO FORMER USER [facility] Nov 12, 2020 12:00 PM VA-TOBACCO QUIT 5 TO < [address] [facility] May 31, 2019 06:22 AM INPT NO TOBACCO USE IN LAST [address] [facility] Nov 08, 2017 01:55 PM VA-TOBACCO FORMER USER [facility] Nov 08, 2017 01:55 PM VA-TOBACCO QUIT 1 TO < [address] [facility] May 11, 2017 12:43 PM FORMER TOBACCO USE >1Y <7Y [facility] Aug 04, 2016 10:25 AM FORMER TOBACCO USE >1Y <7Y [facility] Aug 04, 2015 11:31 AM FORMER TOBACCO USE <1Y [facility] Aug 13, 2014 10:50 AM CURRENT TOBACCO USER [facility] October 10, 2013 09:12 AM FORMER TOBACCO USER 7Y OR GREATE R [facility] May 26, 2012 10:14 AM CURRENT TOBACCO USER [facility] Nov 19, 2009 12:07 PM CUR[address] TOBACCO USER [facility] Advance Directives: All historical and current Section Date Range: From patient's date of to the date document was created. This section includes ALL of a patient's completed or amended [place] Advance and Rescinded Directives. The entries below indicate that a directive exists for the patient, but an actual copy is not included with this document. The data comes from all [place] facilities. Date Advance Directives Provider Source Oct 31, 2023 ADVANCE DIRECTIVE HERLINDA SONG OUD (DOM) Oct 17, 2023 ADVANCE DIRECTIVE DISCUSSION [place] MAN [facility] May 11, 2006 ADVANCE DIRECTIVE PEDRO CAMACHO [facility] Encounter Notes: All associated encounter notes This section contains the clinical notes associated to the Encounter. Date/Time Encounter Note(s) Provider Source Feb 22, 2024 10:00 AM MENTAL HEALTH NOTE : LOCAL TITLE: MH PROGRESS NOTE STANDARD TITLE: MENTAL HEALTH NOTE DATE OF NOTE: FEB 22, 2024@10:00 ENTRY DATE: FEB 22, 2024@10:16:07 AUTHOR: MUNA VINCENT EXP COSIGNER: URGENCY: STATUS: COMPLETED Group Title: ADS Tuesday Aftercare Group Length: 90 minutes/Frequency: Once weekly [place] seen by WEBEX Number of veterans in group: 7 Modality: Supportive therapy; CBT; Motivational Interviewing, Relational Mailing Machine Operator(s): SERGE Terrell, MITZI Date of Attendance: February 22, 2024 via WEBEX Conference call due to [id number]. [place] agreed to meet by WEBMindBodyGreen and is aware it is not secure. [...] combat Alcohol Use Disorder, Severe Depressive Disorder [place] reports sobriety. Veterans were fully informed on [...] teleconferencing (CVT) to home. Visit conducted via [employer] video conferencing platform during COVID-19 National Emergency in order to avoid delay in care as [place] Video Connect is not available for hybrid video/telephone groups. has been informed of and verbally consented to confidentiality and its limits, including possible privacy risks using 3rd libertarian applications. also advised that if they are not using unlimited Wi-Fi/do not have unlimited data, they may be charged regular data rates. Informed consent for treatment and limits of confidentiality, in addition to limits and benefits of treatment, were reviewed with the in our initial session, at which time they indicated understanding and agreement. Risk Assessment: Protective Factors: Service Dog, family -sister in [place], sister in [place], brother [place], financially ok, [...] articulates reason for living) /ubaldo/ SERGE RODRIGUEZ, [facility] CLINICAL MANAGER LOGISTIC Signed: 02/22/2024 11:[address] [facility]
--- OUTSIDE RECORDS SUMMARY | 2024-02-29 05:00 | XMS_ITS | Encounter Summary ---
Author Name [place] Address [address], [place] [address] Care Team Providers Care In Service Coordinator Name Role Phone HA HENDERSON Primary Care [...] Hurt's Name Patient's Relationship to Policy Hurt [facility] (WNR) MEDICARE ADVANTAGE [facility] ([facility]) May 16, 2023 [id number] JEAN JAIN IN PATIENT [facility] (WNR) MEDICARE ADVANTAGE [facility] (R) May 16, 2023 [id number] JEAN JAIN IN PATIENT Selected Encounter This section includes the information on record at [place] for the Encounter. Date/Time Encounter Type Encounter Description Reason Pro vider Source Feb 29, 2024 10:00 AM Outpatient Encounter [facility] IHE Encounter Template Text not used by [place] Plan of Treatment: Future Appointments (+ 6 [...] 07, 2024 10:00 AM AM[place]AT[place] [facility] Mar 14, 2024 10:00 AM AMBULATORY [place] [facility] Mar 14, 2024 02:30 PM [facility] Mar 15, 2024 10:15 AM [facility] Mar 15, 2024 11:00 AM [place] [facility] Mar 21, 2024 10:00 AM AMBULAT[place] [facility] Mar 28, 2024 10:00 AM AMBULAT[place] [facility] Apr 02, 2024 01:45 PM [facility] Apr 04, 2024 10:00 AM AM[place]UL[place] [facility] Apr 13, 2024 01:15 PM [facility] Apr 16, 2024 08:00 AM [place] [facility] Apr 18, 2024 10:00 AM AMB[place] [facility] Apr 26, 2024 10:45 AM AMBULAT[place] [facility] May 02, 2024 10:00 AM AM[place] [facility] May 23, 2024 10:00 AM AM[place] [facility] May 30, 2024 10:00 AM AMBULAT[place] [facility] Jun 06, 2024 10:00 AM AMBUL[place] [facility] Jun 13, 2024 10:00 AM AMBULAT[place] [facility] Jun 15, 2024 09:30 AM [place] [facility] Jun 20, 2024 10:00 AM [facility] Social History: Smoking Status (Most [...] 02, 2023 11:00 AM VA-TOBACCO FORMER USER [facility] Tobacco Use History This section includes a history of the smoking, or tobacco-related health factors, that were collected on or before the date of the Encounter. The data comes from the [place] facility where the Encounter took place. Date/Time Smoking Status/Tobacco Use Comment F acility Jun 02, 2023 11:00 AM VA-TOBACCO QUIT 5 TO < 15 YRS [facility] May 21, 2022 10:30 AM VA-TOBACCO FORMER USER [facility] May 21, 2022 10:30 AM VA-TOBACCO QUIT 15 YRS OR MORE [facility] Nov 12, 2020 12:00 PM VA-TOBACCO FORMER USER [facility] Nov 12, 2020 12:00 PM [place]-TOBACCO QUIT 5 TO < 15 YRS [facility] May 31, 2019 06:22 AM INPT NO TOBACCO USE IN LAST 30 D AYS [facility] Nov 08, 2017 01:55 PM VA-TOBACCO FORMER USER [facility] Nov 08, 2017 01:55 PM VA-TOBACCO QUIT 1 TO < 5 YRS [facility] May 11, 2017 12:43 PM FORMER TOBACCO USE >1Y <7Y [facility] Aug 04, 2016 10:25 AM FORMER TOBACCO USE >1Y <7Y [facility] Aug 04, 2015 11:31 AM FORMER TOBACCO USE <1Y [facility] Aug 13, 2014 10:50 AM CURRENT TOBACCO USER [facility] October 10, 2013 09:12 AM FORMER TOBACCO USER 7Y OR GREATE R [facility] May 26, 2012 10:14 AM CURRENT TOBACCO USER [facility] Nov 19, 2009 12:07 PM CURRENT TOBACCO USER [facility] Advance Directives: All historical and current [...] View Hospital. Date Advance Directives Provider Source Oct 31, 2023 ADVANCE DIRECTIVE HERLINDA SONG (DOM) Oct 17, 2023 ADVANCE DIRECTIVE DISCUSSION [place] MAN [facility] May 11, 2006 ADVANCE DIRECTIVE PEDRO CAMACHO [facility] Encounter Notes: All associated encounter notes This section contains the clinical notes associated to the Encounter. Date/Time Encounter Note(s) Provider Source Feb 29, 2024 10:00 AM NO SHOW NOTE: LOCAL TITLE: NO SHOW/CANCELLATION CLINIC NOTE STANDARD TITLE: NO SHOW NOTE DATE OF NOTE: FEB 29, 2024@10:00 ENTRY DATE: FEB 29, 2024@10:16:19 AUTHOR: MUNA VINCENT EXP COSIGNER: URGENCY: STATUS: COMPLETED not seen for scheduled appointment due to: [place] cancelled due to broken heater at home Appointment Rescheduled: Please review patient chart and medications for renewal needs (if appropriate). /ubaldo/ SERGE RODRIGUEZ, [facility] CLINICAL ELECTRICAL CONTROLS DESIGNER Signed: 02/29/2024 11:51 MUNA VINCENT [facility]
--- OUTSIDE RECORDS SUMMARY | 2024-03-07 05:00 | XMS_ITS | Encounter Summary ---
Author Name [facility] [place] Address [address] [place] [address] Care Team Providers Care Biometric Screener Name Role Phone HA HENDERSON Primary Care [...] Name Patient's Relationship to Policy Hurt [facility] (R) MEDICARE ADVANTAGE MCR ([facility]) May 16, 2023 [id number] JEAN JAIN IN PATIENT [facility] (WNR) MEDICARE ADVANTAGE [facility] ([facility]) May 16, 2023 [id number] 17 JEAN JAIN IN PATIENT Selected Encounter This section includes the information on record at [place] for the Encounter. Date/Time Encounter Type Encounter Description Reason Provider Source Mar 07, 2024 10:00 AM GROUP PSYCHOTHERAPY [facility]-GROUP ICD-10-CM F43.12 Post-traumati c stress disorder, chronic VINCENT,MUNA R IHE Encounter Template Text not used by VA Assessments - Encounter Diagnoses This section includes the primary and secondary diagnoses documented for the Encounter. Date/Time Primary/Secondary Diagnosis Diagnosis Name Provider Source Mar 07, 2024 11:49 AM PRIMARY Post-traumatic stress disorder, chronic MUNA VINCENT [facility] Mar 07, 2024 11:49 AM SECONDARY Alcohol dependence, uncomplicated MUNA VINCENT [facility] Mar 07, 2024 11:49 AM SECONDARY Depression, unspecified MUNA VINCENT [facility] Plan of Treatment: Future Appointments (+ 6 months) and Future Tests (+/- 45 days) The Plan of Treatment section includes future care activities for the patient from [facility] [place] [facility]. This section includes future appointments and future orders which are active, pending or scheduled. Future Appointments This section includes appointments that were scheduled to occur 6 months from the date of the Encounter, up to a maximum of 20 appointments. The data comes from all [place] [facility] Appointment Date/Time Appointment Type Appointme nt Facility Name Mar 14, 2024 10:00 AM [facility] [place] [facility] Mar 14, 2024 02:30 PM AM[facility]UL[facility] Mar 15, 2024 10:15 AM [facility] [place] [facility] Mar 15, 2024 11:00 AM [place] [facility] Mar 21, 2024 10:00 AM AM[place] [facility] Mar 28, 2024 10:00 AM AM[place]UL[place] [facility] Apr 02, 2024 01:45 PM [facility] Apr 04, 2024 10:00 AM AMBUL[place]ORY [place] [facility] Apr 13, 2024 01:15 PM [facility] Apr 16, 2024 08:00 AM [place] [facility] Apr 18, 2024 10:00 AM AMBUL[place]ORY [place] [facility] Apr 26, 2024 10:45 AM AMBUL[place]ORY [place] [facility] May 02, 2024 10:00 AM AMBULATORY [place] [facility] May 23, 2024 10:00 AM AMBUL[place] [facility] May 30, 2024 10:00 AM AMBULAT[place] [facility] Jun 06, 2024 10:00 AM AMBULATORY [place] [facility] Jun 13, 2024 10:00 AM AMBULAT[place] [facility] Jun 15, 2024 09:30 AM [facility] [place] [facility] Jun 20, 2024 10:00 AM AMBULATORY - PS[place]CHIATRY [place] [facility] Jul 04, 2024 10:00 AM AMBULATORY - PSYCHIATRY [facility] Social History: Smoking Status (Most current) and Tobacco Use (All prior to encounter date) This section includes the most current, and the historical, smoking and tobacco- related health factors from the [place] facility where the Encounter took place. Current Smoking Status This section includes the most current smoking, or tobacco-related health factor, from the [place] facility where the Encounter took place. Date/Time Current Smoking Status Comment Facil ity Jun 02, 2023 11:00 AM VA-TOBACCO FORMER USER [facility] Tobacco Use History This section includes a history of the smoking, or tobacco-related health factors, that were collected on or before the date of the Encounter. The data comes from the [place] facility where the Encounter took place. Date/Time Smoking Status/Tobacco Use Comment F acility Jun 02, 2023 11:00 AM VA-TOBACCO QUIT 5 TO < 15 YRS [facility] May 21, 2022 10:30 AM VA-TOBACCO FORMER USER [facility] May 21, 2022 10:30 AM VA-TOBACCO QUIT 15 YRS OR MORE [facility] Nov 12, 2020 12:00 PM VA-TOBACCO FORMER USER [facility] Nov 12, 2020 12:00 PM VA-TOBACCO QUIT 5 TO < 15 YRS [facility] May 31, 2019 06:22 AM INPT NO TOBACCO USE IN LAST 30 D AYS [facility] Nov 08, 2017 01:55 PM VA-TOBACCO FORMER USER [facility] Nov 08, 2017 01:55 PM VA-TOBACCO QUIT 1 TO < 5 YRS [facility] May 11, 2017 12:43 PM FORMER TOBACCO USE >1Y <7Y [facility] Aug 04, 2016 10:25 AM FORMER TOBACCO USE >1Y <7Y [facility] Aug 04, 2015 11:31 AM FORMER TOBACCO USE <1Y [facility] Aug 13, 2014 10:50 AM CURRENT TOBACCO USER [facility] October 10, 2013 09:12 AM FORMER TOBACCO USER 7Y OR GREATE R [facility] May 26, 2012 10:14 AM CURRENT TOBACCO USER [facility] Nov 19, 2009 12:07 PM CURRENT TOBACCO USER [facility] Advance Directives: All historical and current Section Date Range: From patient's date of to the date document was created. This section includes ALL of a patient's completed or amended [place] Advance and Rescinded Directives. The entries below indicate that a directive exists for the patient, but an actual copy is not included with this document. The data comes from all [place] facilities. Date Advance Directives Provider Source Oct 31, 2023 ADVANCE DIRECTIVE CVHERLINDA JOHNSON OUD (DOM) Oct 17, 2023 ADVANCE DIRECTIVE DISCUSSION [place] MAN [facility] May 11, 2006 ADVANCE DIRECTIVE PEDRO CAMACHO [facility] Encounter Notes: All associated encounter notes This section contains the clinical notes associated to the Encounter. Date/Time Encounter Note(s) Provider Source Mar 07, 2024 10:00 AM MENTAL HEALTH GROU P COUNSELING NOTE: LOCAL TITLE: MH GROUP NOTE STANDARD TITLE: MENTAL HEALTH GROUP COUNSELING NOTE DATE OF NOTE: MAR 07, 2024@10:00 ENTRY DATE: MAR 07, 2024@10:23:18 AUTHOR: MUNA VINCENT EXP COSIGNER: URGENCY: STATUS: COMPLETED Group Title: ADS Tuesday Aftercare Group Length: 90 minutes/Frequency: Once weekly [place] seen by WEBEX Number of veterans in group: 8 Modality: Supportive therapy; CBT; Motivational Interviewing, Relational Mine Expert(s): SERGE Terrell, MITZI Date of Attendance: March 07, 2024 via WEBEX Conference call due to [id number]. [place] agreed to meet by WEBSiteWit and is aware it is not secure. [...] teleconferencing (CVT) to home. Visit conducted via [employer] video conferencing platform during COVID-19 National Emergency in order to avoid delay in care as [place] Video Connect is not available for hybrid video/telephone groups. has been informed of and verbally consented to confidentiality and its limits, including possible privacy risks using 3rd alliance party applications. also advised that if they [...] Protective Factors: Service Dog, family -sister in [place], sister in [place], brother [place], financially ok, not suicidal Risk Factors: SI [...] articulates reason for living) /ubaldo/ SERGE RODRIGUEZ, [facility] CLINICAL TRAILER ASSEMBLER Signed: 03/07/2024 11:50 MUNA VINCENT [facility]
--- OUTSIDE RECORDS SUMMARY | 2024-03-14 05:00 | XMS_ITS | Encounter Summary ---
Author Name [place] Address [address] [place] [address] Care Team Providers Care Actuarial Intern Name Role Phone HA HENDERSON Primary Care [...] Relationship to Policy Hurt [facility] (R) MEDICARE ADVANTAGE MCR ([facility]) May 16, 2023 [id number] JEAN JAIN IN PATIENT [facility] (WNR) MEDICARE ADVANTAGE [facility] ([facility]) May 16, 2023 [id number] JEAN JAIN IN PATIENT Selected Encounter This section includes the information on record at [place] for the Encounter. Date/Time Encounter Type Encounter Description Reason Provider Source Mar 14, 2024 10:00 AM GROUP PSYCHOTHERAPY [facility] ICD-10-CM F43.10 Post-traumatic stress disorder, unspecified MUNA VINCENT Encounter Template Text not used by VA Assessments - Encounter Diagnoses This section includes the primary and secondary diagnoses documented for the Encounter. Date/Time Primary/Secondary Diagnosis Diagnosis Name Provider Source Mar 14, 2024 12:06 PM PRIMARY Post-traumatic stress disorder, unspecified MUNA VINCENT [facility] Mar 14, 2024 12:06 PM SECONDARY Alcohol dependence, uncomplicated MUNA VINCENT [facility] Mar 14, 2024 12:06 PM SECONDARY Depression, unspecified MUNA VINCENT [facility] Plan of Treatment: Future Appointments (+ 6 months) and Future Tests (+/- 45 days) The Plan of Treatment section includes future care activities for the patient from all [place] [facility]. This section includes future appointments and future orders which are active, pending or scheduled. Future Appointments This section includes appointments that were scheduled to occur 6 months from the date of the Encounter, up to a maximum of 20 appointments. The data comes from all [facility]. Appointment Date/Time Appointment Type Appointme nt Facility Name Mar 15, 2024 10:15 AM [facility] Mar 15, 2024 11:00 AM [facility] Mar 21, 2024 10:00 AM AMBULATORY - PS[place]CHIATRY [place] [facility] Mar 28, 2024 10:00 AM [facility] Apr 02, 2024 01:45 PM [facility] Apr 04, 2024 10:00 AM [facility] Apr 13, 2024 01:15 PM [facility] Apr 16, 2024 08:00 AM AM[facility]ORY - [place]ICINE [place] [facility] Apr 18, 2024 10:00 AM AMBULATORY - PSYCHIATRY [place] [facility] Apr 26, 2024 10:45 AM [facility] May 02, 2024 10:00 AM [facility] May 23, 2024 10:00 AM [facility] May 30, 2024 10:00 AM [facility] [place] [facility] Jun 06, 2024 10:00 AM [facility] Jun 13, 2024 10:00 AM [facility] Jun 15, 2024 09:30 AM [facility]ORY - MEDICINE [place] [facility] Jun 20, 2024 10:00 AM [facility] Jul 04, 2024 10[facility]00 AM [facility] Jul 11, 2024 10:00 AM AMBULATORY - PSYCHIATRY [place] [facility] Jul 18, 2024 10:00 AM AMBULATORY - PSYCHIATRY [place] [facility] Social History: Smoking Status (Most [...] comes from all [facility]. Date Advance Directives Provider Source Oct 31, 2023 ADVANCE DIRECTIVE CVIXHERLINDA OUD (DOM) Oct 17, 2023 ADVANCE DIRECTIVE DISCUSSION [facility] May 11, 2006 ADVANCE DIRECTIVE PEDRO CAMACHO [facility] Radiology [...] treatment facilities. Date/Time Radiology Report Provider Source Apr 13, 2024 11:10 AM LDCT INCIDENTAL PU LMONARY NODULE: CALVIN JAIN [id number] -1955 M Exm Date: APR 13, 2024@11:10 Req Phys: HA HENDERSON Loc: [facility] PACT GRAPE WH 4D (Req'g Lo Img Loc: CT IMAGING Service: [place] [address] (Case [id number] COMPLETE) LDCT INCIDENTAL PULMONARY NODULE (CT Detailed) CPT:46473 Reason for Study: f/u lung nodules Clinical History: f/u lung nodules. active smoker Per Joint Commission Standards, by signing this [...] COMMENTS AVAILABLE...Refer to Interim Lab Report. Allergies: ([place] only) PENICILLIN (Nov 19, 2009) ZOLPIDEM (Dec 26, 2014) KENALONE INJECTION (40 MG/ML) (Oct 26, 2018) Report Status: Verified Date Reported: APR 13, 2024 Date Verified: APR 13, 2024 Laundry Sorter E-Sig:/ES/MANDA GILBERT MD Report: EXAM: Non-Contrast Low-Dose CT Chest for Incidentally Detected Pulmonary Nodules HISTORY: Follow-up pulmonary nodules. COMPARISON: 09/24/2023, 05/02/2023, 03/30/2023 TECHNIQUE: Low dose CT chest without IV contrast. Axial and coronal images were obtained. DOSE: DLP: 83.45, mGy.cm/CTDIvol Mean: 1.7, mGy FINDINGS: Pulmonary nodules: Index Pulmonary Nodule: Average diameter: 9.4 millimeters Density: Solid nodule Location: Left upper lobe Image: Series 4 Image 193 Suspicious features: None Other characteristics: Pleural-based Change in diameter: Not seen on the most recent comparison from 09/24/2023 because of consolidation in this area. It is measuring slightly larger than on the CT dated 05/02/2023. Number of nodules on current exam: 2 to 5 nodules Size Stratification: At least one > or = 8 mm Other Pulmonary Nodules: The following stable pulmonary nodules are seen: 2 mm nodule lateral right upper lobe image 122/4, 2.5 mm nodule right upper lobe image 135/4, 3.5 mm nodule image 168/4. Other lung findings: There is improved aeration in the lung bases with some residual linear, bandlike opacities in the lung bases suggestive of atelectasis or scar. Bronchiectasis in the right middle lobe. Pleura: There is no pneumothorax. The effusions seen on the previous exam have resolved. Mediastinum: Again seen is the collection of fluid and fat density in the right paraesophageal location. Upper abdomen: The liver has diffusely decreased attenuation consistent with steatosis. There are two small soft tissue nodules adjacent to the spleen, likely related descending splenules. Bones and soft tissues: There is a mildly enlarged lymph node in the left axilla dimension of 1.3 cm short axis. There are mild degenerative changes in both shoulders. There are mild compression deformities of the T4 and T8 vertebral bodies, unchanged compared with previous. There are chronic deformities in the right lateral 5th through 9th ribs consistent with healed fractures. There are separate, subacute, mildly displaced fractures of the right lateral 7th and 8th ribs. There are fracture deformities of the left 3rd through 10th ribs consistent with previous fractures and exhibiting evidence of some healing compared with the CT dated 09/24/2023. Impression: 1. Left upper lobe 9.4 mm pleural-based pulmonary nodule in the area of lung consolidation seen on the CT dated 09/24/2023 and slightly increased in size compared with the CT dated 05/02/2023. Recommend continued follow up per Fleischner Society 2017 guidelines. 2. Subacute, mildly displaced fractures of the right 7th and 8th ribs, new compared with the CT dated 09/24/2023. There is no pneumothorax seen. Small bilateral pleural effusions seen on 09/24/2023 have resolved. 3. Improved aeration in both lung bases compared with the CT dated 09/24/2023 most suggestive of improving infectious/inflammatory processes. 4. 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 Primary Interpreting Staff: MANDA GILBERT MD, RADIOLOGIST (Laundry Sorter) /MANDA NASCIMENTO [facility] Encounter Notes: All associated encounter notes This section contains the clinical notes associated to the Encounter. Date/Time Encounter Note(s) Provider Source Mar 14, 2024 10:00 AM MENTAL HEALTH GROU P COUNSELING NOTE: LOCAL TITLE: MH GROUP NOTE STANDARD TITLE: MENTAL HEALTH GROUP COUNSELING NOTE DATE OF NOTE: MAR 14, 2024@10:00 ENTRY DATE: MAR 14, 2024@10:26:26 AUTHOR: MUNA VINCENT EXP COSIGNER: URGENCY: STATUS: COMPLETED Group Title: ADS Tuesday Aftercare Group Length: 90 minutes/Frequency: Once weekly [place] seen by [employer] Number of veterans in group: 8 Modality: Supportive therapy; CBT; Motivational Interviewing, Relational Milk Vendor(s): SERGE Terrell LICSW Date of Attendance: March 14, 2024 via WEB[employer] Conference call due to [id number]. agreed to meet by WEB[employer] and is [...] teleconferencing (CVT) to home. Visit conducted via [employer] video conferencing platform during COVID-19 National Emergency in order to avoid delay in care as [place] Video Connect is not available for hybrid video/telephone groups. has been informed of and verbally consented to confidentiality and its limits, including possible privacy risks using 3rd alliance party applications. [place] also advised that if they are not [...] also has protective factors, coping skills, articulates josh /ubaldo/ SERGE RODRIGUEZ, [facility] CLINICAL GAME WARDEN Signed: 03/14/2024 12:07 MUNA VINCENT [facility]
--- OUTSIDE RECORDS SUMMARY | 2024-03-21 05:00 | XMS_ITS | Encounter Summary ---
Author Name [facility] [place] Address [address] [place] [address] Care Team Providers Care Streets And Buildings Decorator Name Role Phone HA HENDERSON Primary Care [...] Name Patient's Relationship to Policy Hurt [facility] (R) MEDICARE ADVANTAGE MCR ([facility]) May 16, 2023 [id number] JE[address] IN PATIENT [facility] (WNR) MEDICARE ADVANTAGE [facility] ([facility]) May 16, 2023 [id number] 17 JEAN JAIN IN PATIENT Selected Encounter This section includes the information on record at [place] for the Encounter. Date/Time Encounter Type Encounter Description Reason Provider Source Mar 21, 2024 10:00 AM GROUP PSYCHOTHERAPY [facility] CLINIC-GROUP ICD-10-CM F43.12 Post-traumati c stress disorder, chronic VINCENT,MUNA R IHE Encounter Template Text not used by VA Assessments - Encounter Diagnoses This section includes the primary and secondary diagnoses documented for the Encounter. Date/Time Primary/Secondary Diagnosis Diagnosis Name Provider Source Mar 21, 2024 12:27 PM PRIMARY Post-traumatic stress disorder, chronic MUNA VINCENT [facility] Mar 21, 2024 12:27 PM SECONDARY Alcohol dependence, uncomplicated MUNA VINCENT [facility] Mar 21, 2024 12:27 PM SECONDARY Depression, unspecified MUNA VINCENT [facility] Plan of Treatment: Future Appointments (+ 6 months) and Future Tests (+/- 45 days) The Plan of Treatment section includes future care activities for the patient from all [place] [facility]. This section includes future appointments and future orders which are active, pending or scheduled. Future Appointments This section includes appointments that were scheduled to occur 6 months from the date of the Encounter, up to a maximum of 20 appointments. The data comes from all [facility]. Appointment Date/Time Appointment Type Appointme nt Facility Name Mar 28, 2024 10:00 AM AMBULATORY [place] [facility] Apr 02, 2024 01:45 PM AMBULATORY - NONE [facility] Apr 04, 2024 10:00 AM [place] [facility] Apr 13, 2024 01:15 PM AMBULATORY - NONE [facility] Apr 16, 2024 08:00 AM AMBULATORY - MEDICINE [place] [facility] Apr 18, 2024 10:00 AM AMB[place]ORY [place] [facility] Apr 26, 2024 10:45 AM AMBULATORY [place]ATRY [place] [facility] May 02, 2024 10:00 AM AMBULATORY [place]ATRY [place] [facility] May 23, 2024 10:00 AM AMBULATORY [place]ATRY [place] [facility] May 30, 2024 10:00 AM [facility] Jun [facility], [facility]24 10:00 AM [facility] Jun 13, 2024 10:00 AM [facility] Jun 15, 2024 09:30 AM [facility] [place] [facility] Jun 20, 2024 10:00 AM [facility] Jul 04, 2024 10:00 AM [facility] Jul 11, 2024 10:00 AM [facility] Jul 18, 2024 10:00 AM [facility] Jul 23, 2024 02:30 PM [facility] Jul 25, 2024 10:00 AM AM[facility]ORY [place]ATRY [place] [facility] Aug 01, 2024 10:00 AM AMBULATORY [place]IATRY [place] [facility] Social History: Smoking Status (Most current) and Tobacco Use (All prior to encounter date) This section includes the most current, and the historical, smoking and tobacco- related health factors from the [place] facility where the Encounter took place. Current Smoking Status This section includes the most current smoking, or tobacco-related health factor, from the [place] facility where the Encounter took place. Date/Time Current Smoking Status Comment Facil ity Jun 02, 2023 11:00 AM VA-TOBACCO FORMER USER [facility] Tobacco Use History This section includes a history of the smoking, or tobacco-related health factors, that were collected on or before the date of the Encounter. The data comes from the [place] facility where the Encounter took place. Date/Time [...] CITIES Nov 08, 2017 01:55 PM VA-TOBACCO QUIT 1 TO < 5 YRS [facility] [...] ALL of a patient's completed or amended [place] Advance and Rescinded Directives. The entries below indicate that a directive exists for the patient, but an actual copy is not included with this document. The data comes from all [facility]. Date Advance Directives Provider Source Oct 31, 2023 ADVANCE DIRECTIVE CVIXHERLINDA OUD (DOM) Oct 17, 2023 ADVANCE DIRECTIVE DISCUSSION [place] [facility] May 11, 2006 ADVANCE DIRECTIVE PEDRO CAMACHO [facility] Radiology Reports: +/- 30 days of the [...] the Encounter. The data comes from all [place] treatment facilities. Date/Time Radiology Report Provider Source Apr 13, 2024 11:10 AM LDCT INCIDENTAL PU LMONARY NODULE: CALVIN JAIN [id number] -1955 M Exm Date: APR 13, 2024@11:10 Req Phys: HA HENDERSON Loc: [facility] PACT GRAPE WH 4D (Req'g Lo Img Loc: CT IMAGING Service: [place] [address] (Case [id number] COMPLETE) LDCT INCIDENTAL PULMONARY NODULE (CT Detailed) CPT:68114 Reason for Study: f/u lung nodules Clinical [...] COMMENTS AVAILABLE...Refer to Interim Lab Report. Allergies: ([place] only) PENICILLIN (Nov 19, 2009) ZOLPIDEM (Dec 26, 2014) KENALONE INJECTION (40 MG/ML) (Oct 26, 2018) Report Status: Verified Date Reported: APR 13, 2024 Date Verified: APR 13, 2024 Sales Operations Consultant E-Sig:/ES/MANDA GILBERT MD Report: EXAM: Non-Contrast Low-Dose [...] Primary Interpreting Staff: MANDA GILBERT MD, RADIOLOGIST (Sales Operations Consultant) /MANDA NASCIMENTO [facility] Encounter Notes: All associated encounter notes This section contains the clinical notes associated to the Encounter. Date/Time Encounter Note(s) Provider Source Mar 21, 2024 10:00 AM MENTAL HEALTH GROU P COUNSELING NOTE: LOCAL TITLE: MH GROUP NOTE STANDARD TITLE: MENTAL HEALTH GROUP COUNSELING NOTE DATE OF NOTE: MAR 21, 2024@10:00 ENTRY DATE: MAR 21, 2024@10:10:06 AUTHOR: MUNA VINCENT EXP COSIGNER: URGENCY: STATUS: COMPLETED Group Title: ADS Tuesday Aftercare Group Length: 90 minutes/Frequency: Once weekly [place] seen by [employer] Number of veterans in group: 8 Modality: Supportive therapy; CBT; Motivational Interviewing, Relational Air Conditioning Insulation Installer(s): SERGE Terrell LICSW Date of Attendance: March 21, 2024 via WEB[employer] Conference call due to [id number]. [place] agreed to meet by WE[employer] and is [...] teleconferencing (CVT) to home. Visit conducted via [employer] video conferencing platform during COVID-19 National Emergency in order to avoid delay in care as [place] Video Connect is not available for hybrid video/telephone groups. [place] has been informed of and verbally consented to confidentiality and its limits, including possible privacy risks using 3rd constitution party applications. also advised that if they [...] coping skills, articulates josh /ubaldo/ SERGE RODRIGUEZ, [facility] CLINICAL INDUSTRIAL RADIOGRAPHER Signed: 03/21/2024 12:27 MUNA VINCENT [facility]
--- OUTSIDE RECORDS SUMMARY | 2024-03-28 05:00 | XMS_ITS | Encounter Summary ---
Author Name [facility] [place] Address [address] [place] [address] Care Team Providers Care Paper Inspector Name Role Phone HA HENDERSON Primary Care [...] Patient's Relationship to Policy Hurt [facility] (R) MEDICARE ADVANTAGE MCR ([facility]) May 16, 2023 [id number] JEAN JAIN IN PATIENT [facility] (WNR) MEDICARE ADVANTAGE [facility] ([facility]) May 16, 2023 [id number] 17 JEAN JAIN IN PATIENT Selected Encounter This section includes the information on record at [place] for the Encounter. Date/Time Encounter Type Encounter Description Reason Provider Source Mar 28, 2024 10:00 AM GROUP PSYCHOTHERAPY [facility] ICD-10-CM F43.12 Post-traumati c stress disorder, chronic VINECNT,MUNA R IHE Encounter Template Text not used by VA Assessments - Encounter Diagnoses This section includes the primary and secondary diagnoses documented for the Encounter. Date/Time Primary/Secondary Diagnosis Diagnosis Name Provider Source Mar 28, 2024 11:46 AM PRIMARY Post-traumatic stress disorder, chronic VINCENT,MUNA R [facility] Plan of Treatment: Future Appointments (+ 6 months) and Future Tests (+/- 45 days) The Plan of Treatment section includes future care activities for the patient from all [place] [facility]. This section includes future appointments and future orders which are active, pending or scheduled. Future Appointments This section includes appointments that were scheduled to occur 6 months from the date of the Encounter, up to a maximum of 20 appointments. The data comes from all [facility]. Appointment Date/Time Appointment Type Appointme nt Facility Name Apr 02, 2024 01:45 PM AMBULATORY - NONE [facility] Apr 04, 2024 10:00 AM AMBULATORY - PS[facility]CHIATRY [place] [facility] Apr 13, 2024 01:15 PM AMBULATORY - NONE [facility] Apr 16, 2024 08:00 AM [facility] Apr 18, 2024 10:00 AM AMBULATORY - PSYCHIATRY [facility] Apr 26, 2024 10:45 AM [facility] May 02, 2024 10:00 AM [facility] May 23, 2024 10:00 AM [facility] May 30, 2024 10:00 AM AMBULATORY - PSYCHIATRY [facility] Jun 06, 2024 10:00 AM [facility] Jun 13, 2024 10:00 AM AMBULATORY - PSYCHIATRY [facility] Jun 15, 2024 09:30 AM [facility] - [facility] Jun 20, 2024 10:00 AM [facility] [place] [facility] Jul 04, 2024 10:00 AM [facility] [place] [facility] Jul 11, 2024 10:00 AM [facility] Jul 18, 2024 10:00 AM [facility] Jul 23, 2024 02:30 PM [place] [place] [facility] Jul 25, 2024 10:00 AM [facility] Aug 01, 2024 10:00 AM [place] [facility] Aug 08, 2024 10:00 AM [place] [facility] Social History: Smoking Status (Most current) and Tobacco Use (All prior to encounter date) This section includes the most current, and the historical, smoking and tobacco- related health factors from the [place] facility where the Encounter took place. Current Smoking Status This section includes the most current smoking, or tobacco-related health factor, from the [place] facility where the Encounter took place. Date/Time Current Smoking Status Comment Facil ity Jun 02, 2023 11:00 AM VA-TOBACCO FORMER USER [facility] Tobacco Use History This section includes a history of the smoking, or tobacco-related health factors, that were collected on or before the date of the Encounter. The data comes from the [place] facility where the Encounter took place. Date/Time Smoking Status/Tobacco Use Comment F acility Jun 02, 2023 11:00 AM VA-TOBACCO QUIT 5 TO < 15 YRS [facility] May 21, 2022 10:30 AM VA-TOBACCO FORMER USER [facility] May 21, 2022 10:30 AM VA-TOBACCO QUIT 15 YRS OR MORE [facility] Nov 12, 2020 12:00 PM VA-TOBACCO FORMER USER [facility] Nov 12, 2020 12:00 PM VA-TOBACCO QUIT 5 TO < 15 YRS [facility] May 31, 2019 06:22 AM INPT NO TOBACCO USE IN LAST 30 D AYS [facility] Nov 08, 2017 01:55 PM VA-TOBACCO FORMER USER [facility] Nov 08, 2017 01:55 PM VA-TOBACCO QUIT 1 TO < 5 YRS [facility] May 11, 2017 12:43 PM FORMER TOBACCO USE >1Y <7Y [facility] Aug 04, 2016 10:25 AM FORMER TOBACCO USE >1Y <7Y [facility] Aug 04, 2015 11:31 AM FORMER TOBACCO USE <1Y [facility] Aug 13, 2014 10:50 AM CURRENT TOBACCO USER [facility] October 10, 2013 09:12 AM FORMER TOBACCO USER 7Y OR GREATE R [facility] May 26, 2012 10:14 AM CURRENT TOBACCO USER [facility] Nov 19, 2009 12:07 PM CURRENT TOBACCO USER [facility] Advance Directives: All historical and current Section Date Range: From patient's date of to the date document was created. This section includes ALL of a patient's completed or amended [place] Advance and Rescinded Directives. The entries below indicate that a directive exists for the patient, but an actual copy is not included with this document. The data comes from all [place] facilities. Date Advance Directives Provider Source Oct 31, 2023 ADVANCE DIRECTIVE HERLINDA SONG (DOM) Oct 17, 2023 ADVANCE DIRECTIVE DISCUSSION SANDRA ZAINABPALOMO López [facility] May 11, 2006 ADVANCE DIRECTIVE PEDRO CAMACHO [facility] Radiology Reports: +/- 30 days of the [...] the Encounter. The data comes from all [place] treatment facilities. Date/Time Radiology Report Provider Source Apr 13, 2024 11:10 AM LDCT INCIDENTAL PU LMONARY NODULE: CALVIN JAIN [id number] -1955 M Exm Date: APR 13, 2024@11:10 Req Phys: HA HENDERSON Loc: [facility] PACT GRAPE WH 4D (Req'g Lo Img Loc: CT IMAGING Service: [place] [address] (Case [id number] COMPLETE) LDCT INCIDENTAL PULMONARY NODULE (CT Detailed) CPT:77087 Reason for Study: f/u lung nodules Clinical [...] COMMENTS AVAILABLE...Refer to Interim Lab Report. Allergies: ([place] only) PENICILLIN (Nov 19, 2009) ZOLPIDEM (Dec 26, 2014) KENALONE INJECTION (40 MG/ML) (Oct 26, 2018) Report Status: Verified Date Reported: APR 13, 2024 Date Verified: APR 13, 2024 Event Decorator E-Sig:/ES/MANDA GILBERT MD Report: EXAM: Non-Contrast Low-Dose [...] Primary Interpreting Staff: MANDA GILBERT MD, RADIOLOGIST (Event Decorator) /MANDA NASCIMENTO [facility] Encounter Notes: All associated encounter notes This section contains the clinical notes associated to the Encounter. Date/Time Encounter Note(s) Provider Source Mar 28, 2024 10:00 AM MENTAL HEALTH GROU P COUNSELING NOTE: LOCAL TITLE: MH GROUP NOTE STANDARD TITLE: MENTAL HEALTH GROUP COUNSELING NOTE DATE OF NOTE: MAR 28, 2024@10:00 ENTRY DATE: MAR 28, 2024@10:11:07 AUTHOR: MUNA VINCENT EXP COSIGNER: URGENCY: STATUS: COMPLETED Group Title: ADS Tuesday Aftercare Group Length: 90 minutes/Frequency: Once weekly [place] seen by [employer] Number of veterans in group: 10 Modality: Supportive therapy; CBT; Motivational Interviewing, Relational Refractory Bricklayer(s): SERGE Terrell, [facility] Date of Attendance: March 28, 2024 via [employer] Conference call due to [id number]. agreed to meet by [employer] and is aware it is not secure. [...] combat Alcohol Use Disorder, Severe Depressive Disorder [place] reports sobriety. Veterans were fully informed on [...] teleconferencing (CVT) to home. Visit conducted via Prompt.[employer] video conferencing platform during COVID-19 National Emergency in order to avoid delay in care as [place] Video Connect is not available for hybrid video/telephone groups. [place] has been informed of and verbally consented to confidentiality and its limits, including possible privacy risks using 3rd democrat applications. [place] also advised that if they are not [...] coping skills, articulates josh /ubaldo/ SERGE RODRIGUEZ, [facility] CLINICAL MANUFACTURER'S REPRESENTATIVE Signed: 03/28/2024 11:47 MUNA VINCENT [facility]
--- OUTSIDE RECORDS SUMMARY | 2024-04-04 05:00 | XMS_ITS | Encounter Summary ---
Author Name [facility] [place] Address [address] [place] [address] Care Team Providers Care Endoscopy Support Specialist Name Role Phone HA HENDERSON Primary Care [...] Name Patient's Relationship to Policy Hurt [facility] (R) MEDICARE ADVANTAGE MCR ([facility]) May 16, 2023 [id number] JEAN JAIN IN PATIENT [facility] (WNR) MEDICARE ADVANTAGE [facility] ([facility]) May 16, 2023 [id number] 17 JEAN JAIN IN PATIENT Selected Encounter This section includes the information on record at [place] for the Encounter. Date/Time Encounter Type Encounter Description Reason Provider Source Apr 04, 2024 10:00 AM GROUP PSYCHOTHERAPY [facility]-GROUP ICD-10-CM F43.10 Post-traumatic stress disorder, unspecified MUNA VINCENT Encounter Template Text not used by VA Assessments - Encounter Diagnoses This section includes the primary and secondary diagnoses documented for the Encounter. Date/Time Primary/Secondary Diagnosis Diagnosis Name Provider Source Apr 04, 2024 11:57 AM PRIMARY Post-traumatic stress disorder, unspecified MUNA VINCENT [facility] Apr 04, 2024 11:57 AM SECONDARY Alcohol dependence, uncomplicated MUNA VINCENT [facility] Plan of Treatment: Future Appointments (+ 6 months) and Future Tests (+/- 45 days) The Plan of Treatment section includes future care activities for the patient from all [place] [facility]. This section includes future appointments and future orders which are active, pending or scheduled. Future Appointments This section includes appointments that were scheduled to occur 6 months from the date of the Encounter, up to a maximum of 20 appointments. The data comes from all [facility]. Appointment Date/Time Appointment Type Appointme nt Facility Name Apr 13, 2024 01:15 PM AMBULATORY - NONE [facility] Apr 16, 2024 08:00 AM AMBULATORY - MEDICINE [facility] Apr 18, 2024 10:00 AM AMBULATORY - [place]IATRY [place] [facility] Apr 26, 2024 10:45 AM AMBULATORY - PS[place]CHIATRY [place] [facility] May 02, 2024 10:00 AM AMBULATORY - PS[place]CHIATRY [place] [facility] May 23, 2024 10:00 AM AMBULATORY - PS[place]CHIATRY [place] [facility] May 30, 2024 10:00 AM [facility] Jun 06, 2024 10:00 AM [facility] Jun 13, 2024 10:00 AM AMBULATORY - PS[place]CHIATRY [place] [facility] Jun 15, 2024 09:30 AM AMBULATORY - MEDICINE [facility] Jun 20, 2024 10:00 AM [facility] Jul 04, 2024 10:00 AM AMBULATORY - PS[place]CHIATRY [place] [facility] Jul 11, 2024 10:00 AM [facility] Jul 18, 2024 10:00 AM [facility] Jul 23, 2024 02:30 PM [facility] Jul 25, 2024 10:00 AM [facility] Aug 01, 2024 10:00 AM AMBULATORY - PS[place]CHIATRY [place] [facility] Aug 08, 2024 10:00 AM AMBULATORY - PS[place]CHIATRY [place] [facility] Aug 14, 2024 07:15 AM AM[facility]UL[facility]ORY - NONE [place] [facility] Aug 15, 2024 10:00 AM AMBUL[place] [facility] Social History: Smoking Status [...] 02, 2023 11:00 AM VA-TOBACCO FORMER USER [facility] Tobacco Use History This section includes a history of the smoking, or tobacco-related health factors, that were collected on or before the date of the Encounter. The data comes from the [place] facility where the Encounter took place. Date/Time Smoking Status/Tobacco Use Comment F acility Jun 02, 2023 11:00 AM VA-TOBACCO QUIT 5 TO < 15 YRS [facility] May 21, 2022 10:30 AM VA-TOBACCO FORMER USER [facility] May 21, 2022 10:30 AM VA-TOBACCO QUIT 15 YRS OR MORE [facility] Nov 12, 2020 12:00 PM VA-TOBACCO FORMER USER [facility] Nov 12, 2020 12:00 PM VA-TOBACCO QUIT 5 TO < 15 YRS [facility] May 31, 2019 06:22 AM INPT NO TOBACCO USE IN LAST 30 D AYS [facility] Nov 08, 2017 01:55 PM VA-TOBACCO FORMER USER [facility] Nov 08, 2017 01:55 PM VA-TOBACCO QUIT 1 TO < 5 YRS [facility] May 11, 2017 12:43 PM FORMER TOBACCO USE >1Y <7Y [facility] Aug 04, 2016 10:25 AM FORMER TOBACCO USE >1Y <7Y [facility] Aug 04, 2015 11:31 AM FORMER TOBACCO USE <1Y [facility] Aug 13, 2014 10:50 AM CURRENT TOBACCO USER [facility] October 10, 2013 09:12 AM FORMER TOBACCO USER 7Y OR GREATE R [facility] May 26, 2012 10:14 AM CURRENT TOBACCO USER [facility] Nov 19, 2009 12:07 PM CURRENT TOBACCO USER [facility] Advance Directives: All historical and [...] 17, 2023 ADVANCE DIRECTIVE DISCUSSION [place] MAN [facility] May 11, 2006 ADVANCE DIRECTIVE PEDRO CAMACHO [facility] Radiology Reports: +/- 30 days [...] LDCT INCIDENTAL PU LMONARY NODULE: CALVIN JAIN [id number] -1955 M Exm Date: APR 13, 2024@11:10 Req Phys: HA HENDERSON Loc: [facility] PACT GRAPE WH 4D (Req'g Lo Img Loc: CT IMAGING Service: [place] [address] (Case [id number] COMPLETE) LDCT INCIDENTAL PULMONARY NODULE (CT Detailed) CPT:89931 Reason for Study: f/u lung nodules Clinical [...] COMMENTS AVAILABLE...Refer to Interim Lab Report. Allergies: ([place] only) PENICILLIN (Nov 19, 2009) ZOLPIDEM (Dec 26, 2014) KENALONE INJECTION (40 MG/ML) (Oct 26, 2018) Report Status: Verified Date Reported: APR 13, 2024 Date Verified: APR 13, 2024 Resident Services Manager E-Sig:/ES/MANDA GILBERT MD Report: EXAM: Non-Contrast Low-Dose [...] Primary Interpreting Staff: MANDA GILBERT MD, RADIOLOGIST (Resident Services Manager) /MANDA NASCIMENTO [facility] Encounter Notes: All associated encounter notes This section contains the clinical notes associated to the Encounter. Date/Time Encounter Note(s) Provider Source Apr 04, 2024 10:00 AM MENTAL HEALTH GROU P COUNSELING NOTE: LOCAL TITLE: MH GROUP NOTE STANDARD TITLE: MENTAL HEALTH GROUP COUNSELING NOTE DATE OF NOTE: APR 04, 2024@10:00 ENTRY DATE: APR 04, 2024@11:48:27 AUTHOR: MUNA VINCENT COSIGNER: URGENCY: STATUS: COMPLETED Group Title: ADS Tuesday Aftercare Group Length: 90 minutes/Frequency: Once weekly seen by [employer] Number of veterans in group: 11 Modality: Supportive therapy; CBT; Motivational Interviewing, Relational Specimen Technician(s): SERGE Terrell, [place] Date of Attendance: April 04, 2024 via [employer] Conference call due to [id number]. agreed to meet by [employer] and is aware it is not secure. [...] combat Alcohol Use Disorder, Severe Depressive Disorder [place] reports sobriety. Veterans were fully informed on [...] teleconferencing (CVT) to home. Visit conducted via Earth[employer]er video conferencing platform during COVID-19 National Emergency in order to avoid delay in care as [place] Video Connect is not available for hybrid video/telephone groups. has been informed of and verbally consented to confidentiality and its limits, including possible privacy risks using 3rd republican applications. also advised that if they are [...] /ubaldo/ SERGE RODRIGUEZ, [facility] CLINICAL COLLECTOR OF INTERNAL REVENUE Signed: 04/04/2024 11:59 MUNA VINCENT [facility]
--- OUTSIDE RECORDS SUMMARY | 2024-04-11 05:00 | XMS_ITS | Encounter Summary ---
Author Name Department [place] Organization [place] Address [address], [place] [address] Care Team Providers Care Technical Specialist Cytogenetics Name Role Phone HA HENDERSON Primary Care [...] Name Patient's Relationship to Policy Hurt [facility] (WNR) MEDICARE ADVANTAGE MCR ([facility]) May 16, 2023 [id number] JEAN JAIN IN PATIENT [facility] (WNR) MEDICARE ADVANTAGE [facility] (R) May 16, 2023 [id number] 17 JEAN JAIN IN PATIENT Selected Encounter This section includes the information on record at [place] for the Encounter. Date/Time Encounter Type Encounter Description Reason Pro vider Source Apr 11, 2024 10:00 AM Outpatient Encounter [facility] IHE Encounter Template Text not used by [place] Plan of Treatment: Future Appointments (+ 6 [...] 20 appointments. The data comes from all [facility] facilities. Appointment Date/Time Appointment Type Appointme nt Facility Name Apr 13, 2024 01:15 PM AMBULATORY - NONE [facility] Apr 16, 2024 08:00 AM AMBULATORY - [facility]ICINE [place] [facility] Apr 18, 2024 10:00 AM [place] [facility] Apr 26, 2024 10:45 AM AM[place] [facility] May 02, 2024 10:00 AM AM[place] [facility] May 23, 2024 10:00 AM AM[place] [facility] May 30, 2024 10:00 AM AMBUL[place] [facility] Jun 06, 2024 10:00 AM AM[facility]ULAT[facility] [place] [facility] [facility] Jun 13, 2024 10:00 AM [facility] [place] [facility] Jun 15, 2024 09:30 AM [facility] Jun 20, 2024 10:00 AM [facility] [place] [facility] Jul 04, 2024 10:00 AM [facility] [place] [facility] [facility] Jul 11, 2024 10:00 AM AM[facility]UL[facility] [place] [facility] [facility] Jul 18, 2024 10:00 AM AM[place] [place] [facility] Jul 23, 2024 02:30 PM [place] [facility] Jul 25, 2024 10:00 AM AM[place] [place] [facility] Aug 01, 2024 10:00 AM AM[facility] [place] [facility] Aug 08, 2024 10:00 AM [place] [place] [facility] Aug 14, 2024 07:15 AM AMBULATORY - NONE [facility] Aug 15, 2024 10:00 AM [facility] Social History: Smoking Status (Most current) and Tobacco Use (All prior to encounter date) This section includes the most current, and the historical, smoking and tobacco- related health factors from the [place] facility where the Encounter took place. Current Smoking Status This section includes the most current smoking, or tobacco-related health factor, from the [place] facility where the Encounter took place. Date/Time Current Smoking Status Comment Facil ity Jun 02, 2023 11:00 AM VA-TOBACCO QUIT 5 TO < 15 YRS [facility] Tobacco Use History This section includes a history of the smoking, or tobacco-related health factors, that were collected on or before the date of the Encounter. The data comes from the [place] facility where the Encounter took place. Date/Time [...] ALL of a patient's completed or amended [place] Advance and Rescinded Directives. The entries below indicate that a directive exists for the patient, but an actual copy is not included with this document. The data comes from all [facility]. Date Advance Directives Provider Source Oct 31, 2023 ADVANCE DIRECTIVE HERLINDA SONG (DOM) Oct 17, 2023 ADVANCE DIRECTIVE DISCUSSION [facility] MAN [facility] May 11, 2006 ADVANCE DIRECTIVE PEDRO CAMACHO [facility] Radiology Reports: +/- 30 [...] the Encounter. The data comes from all [place] treatment facilities. Date/Time Radiology Report Provider Source Apr 13, 2024 11:10 AM LDCT INCIDENTAL PU LMONARY NODULE: CALVIN JAIN [id number] -1955 M Exm Date: APR 13, 2024@11:10 Req Phys: HA HENDERSON Loc: [facility] PACT GRAPE 4D (Req'g Lo Img Loc: CT IMAGING Service: [place] [address] (Case [id number] COMPLETE) LDCT INCIDENTAL PULMONARY NODULE (CT Detailed) CPT:08570 Reason for Study: f/u lung nodules Clinical [...] COMMENTS AVAILABLE...Refer to Interim Lab Report. Allergies: ([place] only) PENICILLIN (Nov 19, 2009) ZOLPIDEM (Dec 26, 2014) KENALONE INJECTION (40 MG/ML) (Oct 26, 2018) Report Status: Verified Date Reported: APR 13, 2024 Date Verified: APR 13, 2024 Editor School Photograph E-Sig:/ES/MANDA GILBERT MD Report: EXAM: Non-Contrast Low-Dose [...] Primary Interpreting Staff: MANDA GILBERT MD, RADIOLOGIST (Editor School Photograph) /MANDA NASCIMENTO [facility] Encounter Notes: All associated encounter notes This section contains the clinical notes associated to the Encounter. Date/Time Encounter Note(s) Provider Source Apr 11, 2024 10:00 AM NO SHOW NOTE: LOCAL TITLE: NO SHOW/CANCELLATION CLINIC NOTE STANDARD TITLE: NO SHOW NOTE DATE OF NOTE: APR 11, 2024@10:00 ENTRY DATE: APR 11, 2024@10:05:47 AUTHOR: MUNA VINCENT EXP COSIGNER: URGENCY: STATUS: COMPLETED [place] not seen for scheduled appointment due to: cancelled Appointment Rescheduled: Please review patient chart and medications for renewal needs (if appropriate). /ubaldo/ SERGE RODRIGUEZ, WILDLIFE OFFICER CLINICAL STUDENT LIFE VICE PRESIDENT Signed: 04/11/2024 12:02 MUNA VINCENT [facility]
--- OUTSIDE RECORDS SUMMARY | 2024-04-13 10:30 | XMS_ITS | Encounter Summary ---
Author Name [facility] [place] Address [address] [place] [address] Care Team Providers Care Wick And Base Assembler Name Role Phone HA HENDERSON Primary Care [...] Hurt's Name Patient's Relationship to Policy Hurt [facility] (WNR) MEDICARE ADVANTAGE MCR ([facility]) May 16, 2023 [id number] JEAN JAIN IN PATIENT [facility] (WNR) MEDICARE ADVANTAGE [facility] ([facility]) May 16, 2023 [id number] JEAN JAIN IN PATIENT Selected Encounter This section includes the information [place] record at [place] for the Encounter. Date/Time Encounter Type Encounter Description Reason Provider Source Apr 13, 2024 03:30 PM Outpatient Encounter ADMIN PAT ACTIVTIES (MASNONCT) LORIE PRESTON Encounter Template Text not used by VA Plan of Treatment: Future Appointments (+ 6 [...] 20 appointments. The data comes from all [facility]. Appointment Date/Time Appointment Type Appointme nt Facility Name Apr 16, 2024 08:00 AM [facility] Apr 18, 2024 10:00 AM [facility] Apr 26, 2024 10:45 AM [facility] May 02, 2024 10:00 AM [facility] May 23, 2024 10:00 AM [facility] May 30, 2024 10:00 AM [facility] [place] [facility] Jun 06, 2024 10:00 AM [facility] Jun 13, 2024 10:00 AM [facility] Jun 15, 2024 09:30 AM [facility] Jun 20, 2024 10:00 AM [facility] Jul 04, 2024 10:00 AM [facility] Jul 11, 2024 10:00 AM [facility] [place] [facility] Jul 18, 2024 10:00 AM [facility] Jul 23, 2024 02:30 PM [facility] Jul 25, 2024 10:00 AM [facility] Aug 01, 2024 10:00 AM [facility] Aug 08, 2024 10:00 AM [place] [facility] Aug 14, 2024 07:15 AM [place] [place] [facility] Aug 15, 2024 10[facility]00 AM [facility] Aug 29, 2024 10:00 AM [facility] Social History: Smoking Status (Most [...] 02, 2023 11:00 AM VA-TOBACCO FORMER USER [facility] Tobacco Use History This section includes a history of the smoking, or tobacco-related health factors, that were collected on or before the date of the Encounter. The data comes from the [place] facility where the Encounter took place. Date/Time Smoking Status/Tobacco Use Comment F acility Jun 02, 2023 11:00 AM VA-TOBACCO QUIT 5 TO < 15 YRS [facility] May 21, 2022 10:30 AM VA-TOBACCO FORMER USER [facility] May 21, 2022 10:30 AM VA-TOBACCO QUIT 15 YRS OR MORE [facility] Nov 12, 2020 12:00 PM VA-TOBACCO FORMER USER [facility] Nov 12, 2020 12:00 PM VA-TOBACCO QUIT 5 TO < 15 YRS [facility] May 31, 2019 06:22 AM INPT NO TOBACCO USE IN LAST 30 D AYS [facility] Nov 08, 2017 01:55 PM VA-TOBACCO FORMER USER [facility] Nov 08, 2017 01:55 PM VA-TOBACCO QUIT 1 TO < 5 YRS [facility] May 11, 2017 12:43 PM FORMER TOBACCO USE >1Y <7Y [facility] Aug 04, 2016 10:25 AM FORMER TOBACCO USE >1Y <7Y [facility] Aug 04, 2015 11:31 AM FORMER TOBACCO USE <1Y [facility] Aug 13, 2014 10:50 AM CURRENT TOBACCO USER [facility] October 10, 2013 09:12 AM FORMER TOBACCO USER 7Y OR GREATE R [facility] May 26, 2012 10:14 AM CURRENT TOBACCO USER [facility] Nov 19, 2009 12:07 PM CURRENT TOBACCO USER [facility] Advance Directives: All historical and current [...] [facility]. Date Advance Directives Provider Source Oct 31, 2023 ADVANCE DIRECTIVE HERLINDA SONG (RASTA) Oct 17, 2023 ADVANCE DIRECTIVE DISCUSSION PAL[place]O MAN [facility] May 11, 2006 ADVANCE DIRECTIVE PEDRO CAMACHO [facility] Radiology Reports: +/- 30 days of [...] LDCT INCIDENTAL PU LMONARY NODULE: CALVIN JAIN [id number] -1955 M Exm Date: APR 13, 2024@11:10 Req Phys: HA HENDERSON Loc: [facility] PACT GRAPE 4D (Req'g Lo Img Loc: CT IMAGING Service: [place] [address] (Case [id number] COMPLETE) LDCT INCIDENTAL PULMONARY NODULE (CT Detailed) CPT:27462 Reason for Study: f/u lung nodules Clinical [...] COMMENTS AVAILABLE...Refer to Interim Lab Report. Allergies: ([place] only) PENICILLIN (Nov 19, 2009) ZOLPIDEM (Dec 26, 2014) KENALONE INJECTION (40 MG/ML) (Oct 26, 2018) Report Status: Verified Date Reported: APR 13, 2024 Date Verified: APR 13, 2024 Forming Yardage Control Operator E-Sig:/ES/MANDA GILBERT MD Report: EXAM: Non-Contrast Low-Dose [...] Primary Interpreting Staff: MANDA GILBERT MD, RADIOLOGIST (Forming Yardage Control Operator) /MANDA NASCIMENTO [facility] Encounter Notes: All associated encounter notes This section contains the clinical notes associated to the Encounter. Date/Time Encounter Note(s) Provider Source Apr 13, 2024 03:30 PM PULMONARY NOTE: LOCAL TITLE: PULMONARY LUNG CANCER SCREENING STANDARD TITLE: PULMONARY NOTE DATE OF NOTE: APR 13, 2024@15:30 ENTRY DATE: APR 13, 2024@15:30:48 AUTHOR: LORIE PRESTON EXP COSIGNER: URGENCY: STATUS: COMPLETED is enrolled in the Lung Cancer Screening Program. Was due for his annual LCS exam, has had numerous ct of chest in last 13 months. It appears the PCP had entered lung nodule tracking LDCT, not LCS, therefore it is a risk that this patient will not continue with proper LCS enrollment. In future asking kindly that PCP defer to LCS LDCT orders, not LNT to avoid 'losing' pt in programs. Chart review shows that PCP entered a pulm consult based on Fleischner impression/recs. Will enter LCS Coordinator note to ensure vet has correct health factors and can be tracked by LCS for next steps in care as determined by the pulm team. If PCP has questions with LCS program and how it funtions please outreach to this feature writer. thank you. DIAGNOSTIC EVALUATION needed for suspicious or large lung nodule. Date of image: Date: April 13, 2024 Lung RADS Score: not assigned Comment: pcp ordered LNT LDCT, provided Fleischner Incidental Findings: No incidental findings were noted. Plan: Evaluation for possible cancer needed or in progress. Patient Notification of results: Patient contacted by other method: Comment: awaiting pulmonary consult results Communicated to Primary Care Provider for situational awareness only. No further action warranted by PCP at this time. LCS coordinator will monitor chart for follow up based off of pulmonary consultation results & plan of care needs. /ubaldo/ LORIE PRESTON RN, BSN PULMONARY/LCS WHEEL CLEANER Signed: 04/13/2024 15:40 Receipt Acknowledged By: 04/19/2024 12:25 /ubaldo/ HA HENDERSON MD Staff Physician LORIE PRESTON [facility]
--- OUTSIDE RECORDS SUMMARY | 2024-04-18 05:00 | XMS_ITS | Encounter Summary ---
Author Name [facility] [place] [facility] [place] Address [address] [place] [address] Care Team Providers Care Correspondent Name Role Phone HA HENDERSON Primary Care [...] Hurt's Name Patient's Relationship to Policy Hurt [facility] (R) MEDICARE ADVANTAGE MCR ([facility]) May 16, 2023 [id number] JEAN JAIN IN PATIENT [facility] (WNR) MEDICARE ADVANTAGE [facility] ([facility]) May 16, 2023 [id number] 17 JEAN JAIN IN PATIENT Selected Encounter This section includes the information on record at [place] for the Encounter. Date/Time Encounter Type Encounter Description Reason Provider Source Apr 18, 2024 10:00 AM GROUP [facility] ICD-10-CM F43.12 Post-traumati c stress disorder, chronic VINCENT,MUNA R IHE Encounter Template Text not used by VA Assessments - Encounter Diagnoses This section includes the primary and secondary diagnoses documented for the Encounter. Date/Time Primary/Secondary Diagnosis Diagnosis Name Provider Source Apr 18, 2024 11:55 AM PRIMARY Post-traumatic stress disorder, chronic MUNA VINCENT [facility] Apr 18, 2024 11:55 AM SECONDARY Alcohol dependence, uncomplicated MUNA VINCENT [facility] Apr 18, 2024 11:55 AM SECONDARY Depression, unspecified [facility] Plan of Treatment: Future Appointments (+ 6 months) and Future Tests (+/- 45 days) The Plan of Treatment section includes future care activities for the patient from all [place] [facility] This section includes future appointments and future orders which are active, pending or scheduled. Future Appointments This section includes appointments that were scheduled to occur 6 months from the date of the Encounter, up to a maximum of 20 appointments. The data comes from all [place] treatment [facility]. Appointment Date/Time Appointment Type Appointme nt Facility Name Apr 26, 2024 10:45 AM [facility] May 02, 2024 10:00 AM [place] [facility] May 23, 2024 10:00 AM [place] [facility] May 30, 2024 10:00 AM [place] [facility] Jun 06, 2024 10:00 AM [place] [facility] Jun 13, 2024 10:00 AM [facility] Jun 15, 2024 09:30 AM AM[facility] [place] [facility] Jun 20, 2024 10:00 AM [place] [facility] Jul 04, 2024 10:00 AM [place] [facility] Jul 11, 2024 10:00 AM [facility] Jul 18, 2024 10:00 AM [place] [facility] Jul 23, 2024 02:30 PM AM[place] [facility] Jul 25, 2024 10:00 AM AM[place] [facility] Aug 01, 2024 10:00 AM [facility] Aug 08, 2024 10:00 AM AM[place] [facility] Aug 14, 2024 07:15 AM AM[place]ORY [place] [facility] Aug 15, 2024 10:00 AM [facility] Aug 29, 2024 10:00 AM AMBULATORY - [facility]IATRY [place] [facility] Sep 04, 2024 01:00 PM AMBULATORY - PS[place]CHIATRY [place] [facility] Sep 05, 2024 10:00 AM AMBULATORY - PS[place]CHIATRY [place] [facility] Social History: Smoking Status (Most current) [...] 02, 2023 11:00 AM VA-TOBACCO FORMER USER [facility] Tobacco Use History This section includes a history of the smoking, or tobacco-related health factors, that were collected on or before the date of the Encounter. The data comes from the [place] facility where the Encounter took place. Date/Time Smoking Status/Tobacco Use Comment F acility Jun 02, 2023 11:00 AM VA-TOBACCO QUIT 5 TO < 15 YRS [facility] May 21, 2022 10:30 AM VA-TOBACCO FORMER USER [facility] May 21, 2022 10:30 AM VA-TOBACCO QUIT 15 YRS OR MORE [facility] Nov 12, 2020 12:00 PM VA-TOBACCO FORMER USER [facility] Nov 12, 2020 12:00 PM VA-TOBACCO QUIT 5 TO < 15 YRS [facility] May 31, 2019 06:22 AM INPT NO TOBACCO USE IN LAST 30 D AYS [facility] Nov 08, 2017 01:55 PM VA-TOBACCO FORMER USER [facility] Nov 08, 2017 01:55 PM VA-TOBACCO QUIT 1 TO < 5 YRS [facility] May 11, 2017 12:43 PM FORMER TOBACCO USE >1Y <7Y [facility] Aug 04, 2016 10:25 AM FORMER TOBACCO USE >1Y <7Y [facility] Aug 04, 2015 11:31 AM FORMER TOBACCO USE <1Y [facility] Aug 13, 2014 10:50 AM CURRENT TOBACCO USER [facility] October 10, 2013 09:12 AM FORMER TOBACCO USER 7Y OR GREATE R [facility] May 26, 2012 10:14 AM CURRENT TOBACCO USER [facility] Nov 19, 2009 12:07 PM CURRENT TOBACCO USER [facility] Advance Directives: All historical [...] [facility]. Date Advance Directives Provider Source Oct 31, 2023 ADVANCE DIRECTIVE CVHERLINDA JOHNSON OUD (DOM) Oct 17, 2023 ADVANCE DIRECTIVE DISCUSSION [place] MAN [facility] May [birth year], 2006 ADVANCE DIRECTIVE PEDRO CAMACHO [facility] Radiology Reports: +/- 30 days of the [...] the Encounter. The data comes from all [place] treatment facilities. Date/Time Radiology Report Provider Source Apr 13, 2024 11:10 AM LDCT INCIDENTAL PU LMONARY NODULE: CALVIN JAIN [id number] -1955 M Exm Date: APR 13, 2024@11:10 Req Phys: HA HENDERSON Loc: [facility] PACT GRAPE WH 4D (Req'g Lo Img Loc: CT IMAGING Service: [place] [address] (Case [id number] COMPLETE) LDCT INCIDENTAL PULMONARY NODULE (CT Detailed) CPT:42808 Reason for Study: f/u lung nodules Clinical [...] COMMENTS AVAILABLE...Refer to Interim Lab Report. Allergies: ([place] only) PENICILLIN (Nov 19, 2009) ZOLPIDEM (Dec 26, 2014) KENALONE INJECTION (40 MG/ML) (Oct 26, 2018) Report Status: Verified Date Reported: APR 13, 2024 Date Verified: APR 13, 2024 Employee Relations Assistant E-Sig:/ES/MANDA GILBERT MD Report: EXAM: Non-Contrast Low-Dose [...] Primary Interpreting Staff: MANDA GILBERT MD, RADIOLOGIST (Employee Relations Assistant) /MANDA NASCIMENTO [facility] Encounter Notes: All associated encounter notes This section contains the clinical notes associated to the Encounter. Date/Time Encounter Note(s) Provider Source Apr 26, 2024 12:59 PM ADDENDUM: LOCAL TITLE: Addendum STANDARD TITLE: ADDENDUM DATE OF NOTE: APR 26, 2024@12:59:57 ENTRY DATE: APR 26, 2024@12:59:57 AUTHOR: GHULAM ALAN COSIGNER: URGENCY: STATUS: COMPLETED Spoke with . He is interested in NADA protocol. He recently broke a couple of ribs and cannot drive to [place] right now. Agreed that justowriter operator would reach out to vet again after the New Year. /es/ GHULAM ALAN RN [facility] Signed: 04/26/2024 13:01 Receipt Acknowledged By: 04/26/2024 15:42 /ubaldo/ SERGE RODRIGUEZ, MITZI CLINICAL FIREFIGHTER MARINE --- Original Document --- 04/18/24 GROUP NOTE: Group Title: ADS Tuesday Aftercare Group Length: 90 minutes/Frequency: Once weekly [place] seen by [employer] Number of veterans in group: 9 Modality: Supportive therapy; CBT; Motivational Interviewing, Relational Hearing Screen Coordinator(s): SERGE Terrell, MITZI Date of Attendance: April 18, 2024 via [employer] Conference call due to [id number]. [place] agreed to meet by [employer] and is aware it is not secure. [...] teleconferencing (CVT) to home. Visit conducted via Swapbox video conferencing platform during COVID-19 National Emergency in order to avoid delay in care as [place] Video Connect is not available for hybrid video/telephone groups. has been informed of and verbally consented to confidentiality and its limits, including possible privacy risks using 3rd alliance party applications. [place] also advised that if they are not [...] has protective factors, coping skills, articulates josh /SERGE Reid POWER TOOL REPAIRER CLINICAL FIREFIGHTER MARINE Signed: 04/18/2024 11:56 04/18/2024 ADDENDUM STATUS: COMPLETED [place] expressed interest in NADA protocol. /SERGE Reid LICSW CLINICAL FIREFIGHTER MARINE Signed: 04/18/2024 11:57 Receipt Acknowledged By: 04/23/2024 06:20 /samantha ALAN RN [facility] GHULAM ALAN [facility] Apr 18, 2024 11:57 AM ADDENDUM: LOCAL TITLE: Addendum STANDARD TITLE: ADDENDUM DATE OF NOTE: APR 18, 2024@11:57:01 ENTRY DATE: APR 18, 2024@11:57:03 AUTHOR: MUNA VINCENTIGNER: URGENCY: STATUS: COMPLETED [place] expressed interest in NADA protocol. /SERGE Reid POWER TOOL REPAIRER CLINICAL FIREFIGHTER MARINE Signed: 04/18/2024 11:57 Receipt Acknowledged By: 04/23/2024 06:20 /samantha ALAN RN [facility] --- Original Document --- 04/18/24 GROUP NOTE: Group Title: ADS Tuesday Aftercare Group Length: 90 minutes/Frequency: Once weekly seen by [employer] Number of veterans in group: 9 Modality: Supportive therapy; CBT; Motivational Interviewing, Relational Hearing Screen Coordinator(s): SERGE Terrell, MITZI Date of Attendance: April 18, 2024 via WEBeCo[employer] Conference call due to [id number]. agreed to meet by [employer] and is aware it is not secure. [...] teleconferencing (CVT) to home. Visit conducted via Tescoencing platform during COVID-19 National Emergency in order to avoid delay in care as [place] [employer] Connect is not available for hybrid video/telephone groups. has been informed of and verbally consented to confidentiality and its limits, including possible privacy risks using 3rd alliance party applications. [place] also advised that if they are not [...] coping skills, articulates josh /ubaldo/ SERGE RODRIGUEZ, MITZI CLINICAL FIREFIGHTER MARINE Signed: 04/18/2024 11:56 MUNA VINCENT [facility] Apr 18, 2024 10:00 AM MENTAL HEALTH GROUP COUNSELING NOTE: LOCAL TITLE: MH GROUP NOTE STANDARD TITLE: MENTAL HEALTH GROUP COUNSELING NOTE DATE OF NOTE: APR 18, 2024@10:00 ENTRY DATE: APR 18, 2024@10:13:48 AUTHOR: MUNA VINCENT EXP COSIGNER: URGENCY: STATUS: COMPLETED MH GROUP NOTE Has ADDENDA Group Title: ADS Tuesday Aftercare Group Length: 90 minutes/Frequency: Once weekly [place] seen by [employer] Number of veterans in group: 9 Modality: Supportive therapy; CBT; Motivational Interviewing, Relational Hearing Screen Coordinator(s): SERGE Terrell, MITZI Date of Attendance: April 18, 2024 via [employer] Conference call due to [id number]. [place] agreed to meet by [employer] and is aware it is not secure. [...] teleconferencing (CVT) to home. Visit conducted via Swapbox video conferencing platform during COVID-19 National Emergency [...] coping skills, articulates josh /ubaldo/ SERGE RODRIGUEZ, POWER TOOL REPAIRER CLINICAL FIREFIGHTER MARINE Signed: 04/18/2024 11:56 04/18/2024 ADDENDUM STATUS: COMPLETED expressed interest in NADA protocol. /SERGE Reid, POWER TOOL REPAIRER CLINICAL FIREFIGHTER MARINE Signed: 04/18/2024 11:57 Receipt Acknowledged By: 04/23/2024 06:20 /ubaldo/ GHULAM ALAN RN [facility] 04/26/2024 ADDENDUM STATUS: COMPLETED Spoke with . He is interested in NADA protocol. He recently broke a couple of ribs and cannot drive to [place] right now. Agreed that justowriter operator would reach out to vet again after the New Year. /ubaldo/ GHULAM ALAN RN [facility] Signed: 04/26/2024 13:01 Receipt Acknowledged By: * AWAITING SIGNATURE * MUNA VINCENT [facility]
--- OUTSIDE RECORDS SUMMARY | 2024-04-23 02:17 | XMS_ITS | Encounter Summary ---
Author Name [facility] [place] Organization [place] Address [address] [place] [address] Care Team Providers Care Horseradish Maker Name Role Phone HA HENDERSON Primary Care [...] Hurt's Name Patient's Relationship to Policy Hurt [facility] (WNR) MEDICARE ADVANTAGE MCR ([facility]) May 16, 2023 [id number] JEAN JAIN IN PATIENT [facility] (WNR) MEDICARE ADVANTAGE [facility] (R) May 16, 2023 [id number] 17 JEAN JAIN IN PATIENT Selected Encounter This section includes the information on record at [place] for the Encounter. Date/Time Encounter Type Encounter Description Reason Provider Source Apr 23, 2024 07:17 AM Outpatient Encounter ADMIN PAT ACTIVTIES (MASNONCT) LORIE [...] 20 appointments. The data comes from all [facility]. Appointment Date/Time Appointment Type Appointme nt Facility Name Apr 26, 2024 10:45 AM [facility] [place] [facility] May 02, 2024 10:00 AM [place] [facility] May 23, 2024 10:00 AM [place] [facility] May 30, 2024 10:00 AM [place] [facility] Jun 06, 2024 10:00 AM [place] [facility] Jun 13, 2024 10:00 AM [facility] [place] [facility] Jun 15, 2024 09:30 AM [facility] Jun 20, 2024 10:00 AM [facility] Jul 04, 2024 10:00 AM [place] [facility] Jul 11, 2024 10:00 AM [facility] Jul 18, 2024 10:00 AM [facility] Jul 23, 2024 02:30 PM [place] [facility] Jul 25, 2024 10:00 AM [place] [facility] Aug 01, 2024 10:00 AM [facility] [place] [facility] Aug 08, 2024 10:00 AM [place] [facility] Aug 14, 2024 07:15 AM [place] [facility] Aug 15, 2024 10:00 AM [place] [facility] Aug 29, 2024 10:00 AM [place] [facility] Sep 04, 2024 01:00 PM AM[place] [facility] Sep 05, 2024 10:00 AM [place] [facility] Social History: Smoking Status (Most current) and Tobacco Use (All prior to encounter date) This section includes the most current, and the historical, smoking and tobacco- related health factors from the [place] facility where the Encounter took place. Current Smoking Status This section includes the most current smoking, or tobacco-related health factor, from the [place] facility where the Encounter took place. Date/Time Current Smoking Status Comment Facil ity Jun 02, 2023 11:00 AM VA-TOBACCO FORMER USER [facility] Tobacco Use History This section includes a history of the smoking, or tobacco-related health factors, that were collected on or before the date of the Encounter. The data comes from the [place] facility where the Encounter took place. Date/Time [...] ALL of a patient's completed or amended [place] Advance and Rescinded Directives. The entries below indicate that a directive exists for the patient, but an actual copy is not included with this document. The data comes from all [facility]. Date Advance Directives Provider Source Oct 31, 2023 ADVANCE DIRECTIVE HERLINDA SONG ([place]) Oct 17, 2023 ADVANCE DIRECTIVE DISCUSSION [place] [facility] May 11, 2006 ADVANCE DIRECTIVE PEDRO CAMACHO [facility] Radiology Reports: +/- 30 [...] the Encounter. The data comes from all [place] treatment facilities. Date/Time Radiology Report Provider Source Apr 13, 2024 11:10 AM LDCT INCIDENTAL PU LMONARY NODULE: CALVIN JAIN [id number] -1955 M Exm Date: APR 13, 2024@11:10 Req Phys: HA HENDERSON Loc: [facility] PACT GRAPE 4D (Req'g Lo Img Loc: CT IMAGING Service: [place] [address] (Case [id number] COMPLETE) LDCT INCIDENTAL PULMONARY NODULE (CT Detailed) CPT:71557 Reason for Study: f/u lung nodules Clinical [...] COMMENTS AVAILABLE...Refer to Interim Lab Report. Allergies: ([place] only) PENICILLIN (Nov 19, 2009) ZOLPIDEM (Dec 26, 2014) KENALONE INJECTION (40 MG/ML) (Oct 26, 2018) Report Status: Verified Date Reported: APR 13, 2024 Date Verified: APR 13, 2024 Metal Fabricator E-Sig:/ES/MANDA GILBERT MD Report: EXAM: Non-Contrast Low-Dose [...] Primary Interpreting Staff: MANDA GILBERT MD, RADIOLOGIST (Metal Fabricator) /MANDA NASCIMENTO [facility] Encounter Notes: All associated encounter notes This section contains the clinical notes associated to the Encounter. Date/Time Encounter Note(s) Provider Source Apr 23, 2024 07:21 AM LETTERS: LOCAL TITLE: FOLLOW UP RESULTS LETTER STANDARD TITLE: LETTERS DATE OF NOTE: APR 23, 2024@07:21 ENTRY DATE: APR 23, 2024@07:21:23 AUTHOR: LORIE PRESTON COSIGNER: URGENCY: STATUS: COMPLETED [facility] [address] [place] [address] Apr CALVIN JAIN [address] [facility] [address] Dear : Your recent chest imaging on Mar showed: No significant change in your lung nodule(s) since your last scan. You may now return to the routine lung cancer screening program. If you still meet criteria for screening, your PCP will let you know when it is time to be screened again. This is usually about a year from your last screening chest CT. If you still smoke cigarettes, we can help you quit. We understand that quitting cigarette smoking is difficult, but it is the best way to improve your health and decrease your chances of lung cancer. Quitting smoking and participating in lung cancer screening can double the health benefits. When you want help, let your primary care provider know. You can also call 4-619-WRAE-VET ( ) or visit [employer]. If you are scheduled for a scan in the future and you have symptoms of a chest cold at that time, please call number on appointment letter to reschedule for four weeks after symptoms improve. If you have any further questions or problems, please contact Lung Cancer Screening staff at [phone]. LORIE PRESTON RN, BSN PULMONARY/LCS BUSINESS MACHINES TEACHER LORIE PRESTON [facility] Apr 23, 2024 07:17 AM PULMONARY NOTE: LOCAL TITLE: PULMONARY LUNG CANCER SCREENING STANDARD TITLE: PULMONARY NOTE DATE OF NOTE: APR 23, 2024@07:17 ENTRY DATE: APR 23, 2024@07:17:08 AUTHOR: LORIE PRESTON EXP COSIGNER: URGENCY: STATUS: COMPLETED Date of most recent follow-up image: Date: April 13, 2024 ordered by PCP as LNT LDCT. The diagnostic evaluation determined: progression of existing scar/atelectasis, not concerning for malignancy. Incidental Findings: No incidental findings were noted. Procedures completed during evaluation: Pulmonary E-Consult Plan: Continue routine annual lung cancer screening. Patient Notification of results: Results letter sent to patient. Communicated to Primary Care Provider. Alert to PCP for situational awareness only. No further action warranted by PCP at this time. LCS coordinator will monitor chart for follow up LDCT results for plan of care needs. /ubaldo/ LORIE PRESTON RN, BSN PULMONARY/LCS BUSINESS MACHINES TEACHER Signed: 04/23/2024 07:21 Receipt Acknowledged By: 05/17/2024 11:44 /ubaldo/ HA HENDERSON MD Staff Physician LORIE PRESTON [facility]
--- OUTSIDE RECORDS SUMMARY | 2024-04-25 05:00 | XMS_ITS | Encounter Summary ---
Author Name [facility] [place] Address [address] [place] [address] Care Team Providers Care Mail Handler Equipment Operator Name Role Phone HA HENDERSON Primary [...] Hurt's Name Patient's Relationship to Policy Hurt [facility] (R) MEDICARE ADVANTAGE MCR ([facility]) May 16, 2023 [id number] JEAN JAIN IN PATIENT [facility] (WNR) MEDICARE ADVANTAGE [facility] ([facility]) May 16, 2023 [id number] 17 JEAN JAIN IN PATIENT Selected Encounter This section includes the information on record at [place] for the Encounter. Date/Time Encounter Type Encounter Description Reason Provider Source Apr 25, 2024 10:00 AM GROUP PSYCHOTHERAPY [facility] ICD-10-CM F43.12 Post-traumati c stress disorder, chronic VINCENT,MUNA R IHE Encounter Template Text not used by VA Assessments - Encounter Diagnoses This section includes the primary and secondary diagnoses documented for the Encounter. Date/Time Primary/Secondary Diagnosis Diagnosis Name Provider Source Apr 25, 2024 12:37 PM PRIMARY Post-traumatic stress disorder, chronic MUNA VINCENT [facility] Apr 25, 2024 12:37 PM SECONDARY Alcohol dependence, uncomplicated MUNA VINCENT [facility] Apr 25, 2024 12:37 PM SECONDARY Depression, unspecified [facility] Plan of Treatment: Future Appointments (+ 6 months) and Future Tests (+/- 45 days) The Plan of Treatment section includes future care activities for the patient from all [place] [facility] This section includes future appointments and future orders which are active, pending or scheduled. Future Appointments This section includes appointments that were scheduled to occur 6 months from the date of the Encounter, up to a maximum of 20 appointments. The data comes from all [place] treatment [facility]. Appointment Date/Time Appointment Type Appointme nt Facility Name Apr 26, 2024 10:45 AM [facility] May 02, 2024 10:00 AM [facility] [place] [facility] May 23, 2024 10:00 AM AM[place] [place] [facility] May 30, 2024 10:00 AM [place] [facility] Jun 06, 2024 10:00 AM AM[place] [facility] Jun 13, 2024 10:00 AM [facility] Jun 15, 2024 09:30 AM AM[facility]ORY - [place]ICINE [place] [facility] Jun 20, 2024 10:00 AM AM[place] [facility] Jul 04, 2024 10:00 AM AM[place] [facility] Jul 11, 2024 10:00 AM [facility] Jul 18, 2024 10:00 AM [facility] [facility] Jul 23, 2024 02:30 PM [place] [facility] Jul 25, 2024 10:00 AM AM[place] [facility] Aug 01, 2024 10:00 AM [facility] Aug 08, 2024 10:00 AM AM[place] [place] [facility] Aug 14, 2024 07:15 AM [place] [facility] Aug 15, 2024 10:00 AM [facility] Aug 29, 2024 10:00 AM AMBULATORY - PSY[facility]IATRY [facility] Sep 04, 2024 01:00 PM AMBULATORY - PSYCHIATRY [facility] Sep 05, 2024 10:00 AM AMBULATORY - PSYCHIATRY [facility] Social History: Smoking Status (Most current) and Tobacco Use (All prior to encounter date) This section includes the most current, and the historical, smoking and tobacco- related health factors from the [place] facility where the Encounter took place. Current Smoking Status This section includes the most current smoking, or tobacco-related health factor, from the [place] facility where the Encounter took place. Date/Time Current Smoking Status Comment Facil ity Jun 02, 2023 11:00 AM VA-TOBACCO FORMER USER [facility] Tobacco Use History This section includes a history of the smoking, or tobacco-related health factors, that were collected on or before the date of the Encounter. The data comes from the [place] facility where the Encounter took place. Date/Time Smoking Status/Tobacco Use Comment F acility Jun 02, 2023 11:00 AM VA-TOBACCO QUIT 5 TO < 15 YRS [facility] May 21, 2022 10:30 AM VA-TOBACCO FORMER USER [facility] May 21, 2022 10:30 AM VA-TOBACCO QUIT 15 YRS OR MORE [facility] Nov 12, 2020 12:00 PM VA-TOBACCO FORMER USER [facility] Nov 12, 2020 12:00 PM VA-TOBACCO QUIT 5 TO < 15 YRS [facility] May 31, 2019 06:22 AM INPT NO TOBACCO USE IN LAST 30 D AYS [facility] Nov 08, 2017 01:55 PM VA-TOBACCO FORMER USER [facility] Nov 08, 2017 01:55 PM VA-TOBACCO QUIT 1 TO < 5 YRS [facility] May 11, 2017 12:43 PM FORMER TOBACCO USE >1Y <7Y [facility] Aug 04, 2016 10:25 AM FORMER TOBACCO USE >1Y <7Y [facility] Aug 04, 2015 11:31 AM FORMER TOBACCO USE <1Y [facility] Aug 13, 2014 10:50 AM CURRENT TOBACCO USER [facility] October 10, 2013 09:12 AM FORMER TOBACCO USER 7Y OR GREATE R [facility] May 26, 2012 10:14 AM CURRENT TOBACCO USER [facility] Nov 19, 2009 12:07 PM CURRENT TOBACCO USER [facility] Advance Directives: All historical and current Section Date Range: From patient's date of to the date document was created. This section includes ALL of a patient's completed or amended [place] Advance and Rescinded Directives. The entries below indicate that a directive exists for the patient, but an actual copy is not included with this document. The data comes from all [facility]. Date Advance Directives Provider Source Oct 31, 2023 ADVANCE DIRECTIVE CVHERLINDA JOHNSON OUD (DOM) Oct 17, 2023 ADVANCE DIRECTIVE DISCUSSION [place] [facility] May 11, 2006 ADVANCE DIRECTIVE PEDRO CAMACHO [facility] Radiology Reports: +/- 30 days [...] the Encounter. The data comes from all [place] treatment facilities. Date/Time Radiology Report Provider Source Apr 13, 2024 11:10 AM LDCT INCIDENTAL PU LMONARY NODULE: CALVIN JAIN [id number] -1955 M Exm Date: APR 13, 2024@11:10 Req Phys: HA HENDERSON Loc: [facility] PACT GRAPE WH 4D (Req'g Lo Img Loc: CT IMAGING Service: [place] [address] (Case [id number] COMPLETE) LDCT INCIDENTAL PULMONARY NODULE (CT Detailed) CPT:44129 Reason for Study: f/u lung nodules Clinical [...] COMMENTS AVAILABLE...Refer to Interim Lab Report. Allergies: ([place] only) PENICILLIN (Nov 19, 2009) ZOLPIDEM (Dec 26, 2014) KENALONE INJECTION (40 MG/ML) (Oct 26, 2018) Report Status: Verified Date Reported: APR 13, 2024 Date Verified: APR 13, 2024 Medical Record Coder E-Sig:/ES/MANDA GILBERT MD Report: EXAM: Non-Contrast Low-Dose [...] Primary Interpreting Staff: MANDA GILBERT MD, RADIOLOGIST (Medical Record Coder) /MANDA NASCIMENTO [facility] Encounter Notes: All associated encounter notes This section contains the clinical notes associated to the Encounter. Date/Time Encounter Note(s) Provider Source Apr 25, 2024 10:00 AM MENTAL HEALTH GROU P COUNSELING NOTE: LOCAL TITLE: MH GROUP NOTE STANDARD TITLE: MENTAL HEALTH GROUP COUNSELING NOTE DATE OF NOTE: APR 25, 2024@10:00 ENTRY DATE: APR 25, 2024@10:37:50 AUTHOR: MUNA VINCENT EXP COSIGNER: URGENCY: STATUS: COMPLETED Group Title: ADS Tuesday Aftercare Group Length: 90 minutes/Frequency: Once weekly [place] seen by [employer] Number of veterans in group: 11 Modality: Supportive therapy; CBT; Motivational Interviewing, Relational Chief Nurse Executive(s): SERGE Terrell LICSW Date of Attendance: April 25, 2024 via [employer] Conference call due to [id number]. [place] agreed to meet by [employer] and is [...] combat Alcohol Use Disorder, Severe Depressive Disorder [place] reports sobriety. Veterans were fully informed on [...] teleconferencing (CVT) to home. Visit conducted via [employer] video conferencing platform during COVID-19 National Emergency in order to avoid delay in care as [facility] is not available for hybrid video/telephone groups. has been informed of and verbally consented to confidentiality and its limits, including possible privacy risks using 3rd green party applications. [place] also advised that if they are not [...] coping skills, articulates josh /ubaldo/ SERGE RODRIGUEZ, [facility] CLINICAL ENGRAVER ORNAMENTAL DESIGN Signed: 04/25/2024 12:38 MUNA VINCENT [facility]
--- OUTSIDE RECORDS SUMMARY | 2024-05-02 05:00 | XMS_ITS | Encounter Summary ---
Author Name [place] Address [address] [facility], [place] [address] Care Team Providers Care [place] Artist Name Role Phone HA HENDERSON Primary Care [...] Hurt's Name Patient's Relationship to Policy Hurt [facility] (WNR) MEDICARE ADVANTAGE MCR ([facility]) May 16, 2023 [id number] JEAN JAIN IN PATIENT [facility] (WNR) MEDICARE ADVANTAGE [facility] (R) May 16, 2023 [id number] 17 JEAN JAIN IN PATIENT Selected Encounter This section includes the information on record at [place] for the Encounter. Date/Time Encounter Type Encounter Description Reason Pro vider Source May 02, 2024 10:00 AM Outpatient Encounter [facility] IHE Encounter Template Text not used by [place] Plan of Treatment: Future Appointments (+ 6 [...] 20 appointments. The data comes from all [facility] facilities. Appointment Date/Time Appointment Type Appointme nt Facility Name May 23, 2024 10:00 AM [place] [facility] May 30, 2024 10:00 AM [place] [facility] Jun 06, 2024 10:00 AM [place] [facility] Jun 13, 2024 10:00 AM AM[place] [facility] Jun 15, 2024 09:30 AM [facility] Jun 20, 2024 10:00 [facility] Jul 04, 2024 10:00 AM [place] [facility] Jul 11, 2024 10:00 AM [place] [facility] Jul 18, 2024 10:00 AM [place] [facility] Jul 23, 2024 02:30 PM AM[place] [facility] Jul 25, 2024 10:00 AM AM[place] [facility] Aug 01, 2024 10:00 AM AM[place] [facility] Aug 08, 2024 10:00 AM AM[place] [facility] Aug 14, 2024 07:15 AM AM[place]ORY [place]ONE [place] [facility] Aug 15, 2024 10:00 AM AM[place] [facility] Aug 29, 2024 10:00 AM AM[place] [facility] Sep 04, 2024 01:00 PM AMBUL[place] [facility] Sep 05, 2024 10:00 AM AM[place] [facility] Sep 12, 2024 10:00 AM AM[place] [facility] September 19, 2024 10:00 AM AM[place] [facility] Social History: Smoking Status (Most [...] 02, 2023 11:00 AM VA-TOBACCO FORMER USER [facility] Tobacco Use History This section includes a history of the smoking, or tobacco-related health factors, that were collected on or before the date of the Encounter. The data comes from the [place] facility where the Encounter took place. Date/Time Smoking Status/Tobacco Use Comment F acility Jun 02, 2023 11:00 AM VA-TOBACCO QUIT 5 TO < 15 YRS [facility] May 21, 2022 10:30 AM VA-TOBACCO FORMER USER [facility] May 21, 2022 10:30 AM VA-TOBACCO QUIT 15 YRS OR MORE [facility] Nov 12, 2020 12:00 PM VA-TOBACCO FORMER USER [facility] Nov 12, 2020 12:00 PM VA-TOBACCO QUIT 5 TO < 15 YRS [facility] May 31, 2019 06:22 AM INPT NO TOBACCO USE IN LAST 30 D AYS [facility] Nov 08, 2017 01:55 PM VA-TOBACCO FORMER USER [facility] Nov 08, 2017 01:55 PM [place]-TOBACCO QUIT 1 TO < 5 YRS [facility] May 11, 2017 12:43 PM FORMER TOBACCO USE >1Y <7Y [facility] Aug 04, 2016 10:25 AM FORMER TOBACCO USE >1Y <7Y [facility] Aug 04, 2015 11:31 AM FORMER TOBACCO USE <1Y [facility] Aug 13, 2014 10:50 AM CURRENT TOBACCO USER [facility] October 10, 2013 09:12 AM FORMER TOBACCO USER 7Y OR GREATE R [facility] May 26, 2012 10:14 AM CURRENT TOBACCO USER [facility] Nov 19, 2009 12:07 PM CURRENT TOBACCO USER [facility] Advance Directives: All historical and current Section Date Range: From patient's date of to the date document was created. This section includes ALL of a patient's completed or amended [place] Advance and Rescinded Directives. The entries below indicate that a directive exists for the patient, but an actual copy is not included with this document. The data comes from all [facility]. Date Advance Directives Provider Source Oct 31, 2023 ADVANCE DIRECTIVE CVHERLINDA JOHNSON (DOM) Oct 17, 2023 ADVANCE DIRECTIVE DISCUSSION [place] MAN [facility] May 11, 2006 ADVANCE DIRECTIVE PEDRO CAMACHO [facility] Radiology Reports: +/- 30 days [...] LDCT INCIDENTAL PU LMONARY NODULE: CALVIN JAIN [id number] -1955 M Exm Date: APR 13, 2024@11:10 Req Phys: HA HENDERSON Loc: [facility] PACT GRAPE 4D (Req'g Lo Img Loc: CT IMAGING Service: [place] [address] (Case [id number] COMPLETE) LDCT INCIDENTAL PULMONARY NODULE (CT Detailed) CPT:87363 Reason for Study: f/u lung nodules Clinical [...] COMMENTS AVAILABLE...Refer to Interim Lab Report. Allergies: ([place] only) PENICILLIN (Nov 19, 2009) ZOLPIDEM (Dec 26, 2014) KENALONE INJECTION (40 MG/ML) (Oct 26, 2018) Report Status: Verified Date Reported: APR 13, 2024 Date Verified: APR 13, 2024 Scientific Helper E-Sig:/ES/MANDA GILBERT MD Report: EXAM: Non-Contrast Low-Dose [...] Primary Interpreting Staff: MANDA GILBERT MD, RADIOLOGIST (Scientific Helper) /MANDA NASCIMENTO [facility] Encounter Notes: All associated encounter notes This section contains the clinical notes associated to the Encounter. Date/Time Encounter Note(s) Provider Source May 02, 2024 10:00 AM NO SHOW NOTE: LOCAL TITLE: NO SHOW/CANCELLATION CLINIC NOTE STANDARD TITLE: NO SHOW NOTE DATE OF NOTE: MAY 02, 2024@10:00 ENTRY DATE: MAY 02, 2024@10:19:46 AUTHOR: MUNA VINCENT EXP COSIGNER: URGENCY: STATUS: COMPLETED [place] not seen for scheduled appointment due to: No Show I contacted vet and he said he slept through the meeting. Appointment Rescheduled: Yes Please review patient chart and medications for renewal needs (if appropriate). /ubaldo/ SERGE RODRIGUEZ, PUBLIC POLICY PROFESSOR CLINICAL MANGLE TENDER CLOTH Signed: 05/02/2024 11:54 MUNA VINCENT [facility]
--- OUTSIDE RECORDS SUMMARY | 2024-05-23 05:00 | XMS_ITS | Encounter Summary ---
Author Name [facility] [place] [facility] [place] Address [address] [place] [address] Care Team Providers Care Tool Repairer Name Role Phone HA HENDERSON Primary [...] Patient's Relationship to Policy Hurt [facility] ([facility] MEDICARE ADVANTAGE [facility] ([facility]) May 16, 2023 [id number] JEAN JAIN IN PATIENT [facility] ([facility]) MEDICARE ADVANTAGE [facility] ([facility]) May 16, 2023 [id number] JEAN JAIN IN PATIENT Selected Encounter This section includes the information on record at [place] for the Encounter. Date/Time Encounter Type Encounter Description Reason Provider Source May 23, 2024 10:00 AM GROUP PSYCHOTHERAPY [facility] ICD-10-CM F43.12 Post-traumati c stress disorder, chronic VINCENT,MUNA R IHE Encounter Template Text not used by VA Assessments - Encounter Diagnoses This section includes the primary and secondary diagnoses documented for the Encounter. Date/Time Primary/Secondary Diagnosis Diagnosis Name Provider Source May 23, 2024 12:43 PM PRIMARY Post-traumatic stress disorder, chronic [facility] May 23, 2024 12:43 PM SECONDARY Alcohol dependence, uncomplicated [facility] May 23, 2024 12:43 PM SECONDARY Depression, unspecified [facility] Plan of Treatment: Future Appointments (+ 6 months) and Future Tests (+/- 45 days) The Plan of Treatment section includes future care activities for the patient from all [place] [facility]. This section includes future appointments and future orders which are active, pending or scheduled. Future Appointments This section includes appointments that were scheduled to occur 6 months from the date of the Encounter, up to a maximum of 20 appointments. The data comes from all [place] treatment [facility]. Appointment Date/Time Appointment Type Appointme nt Facility Name May 30, 2024 10:00 AM [facility] Jun 06, 2024 10[facility]00 AM [facility] [place] [facility] Jun 13, 2024 10:00 AM [facility] Jun 15, 2024 09:30 AM [facility] Jun 20, 2024 10:00 AM [place] [facility] Jul 04, 2024 10:00 AM [place] [facility] Jul 11, 2024 10:00 AM [facility] Jul 18, 2024 10:00 AM [place] [facility] Jul 23, 2024 02:30 PM [place] [facility] Jul 25, 2024 10:00 AM [place] [facility] Aug 01, 2024 10:00 AM [place] [facility] Aug 08, 2024 10:00 AM [place] [facility] Aug 14, 2024 07:15 AM [place] [facility] Aug 15, 2024 10:00 AM [facility] Aug 29, 2024 10:00 AM [place] [facility] Sep 04, 2024 01:00 PM AM[place] [facility] Sep 05, 2024 10:00 AM [facility] Sep 12, 2024 10:00 AM AMBULATORY - PS[facility]CHIATRY [place] [facility] September 19, 2024 10:00 AM AMBULATORY - PSYCHIATRY [place] [facility] September 26, 2024 10:00 AM AMBULATORY - PSYCHIATRY [place] [facility] Social History: Smoking Status (Most current) [...] 02, 2023 11:00 AM VA-TOBACCO FORMER USER [facility] Tobacco Use History This section includes a history of the smoking, or tobacco-related health factors, that were collected on or before the date of the Encounter. The data comes from the [place] facility where the Encounter took place. Date/Time Smoking Status/Tobacco Use Comment F acility Jun 02, 2023 11:00 AM VA-TOBACCO QUIT 5 TO < 15 YRS [facility] May 21, 2022 10:30 AM VA-TOBACCO FORMER USER [facility] May 21, 2022 10:30 AM VA-TOBACCO QUIT 15 YRS OR MORE [facility] Nov 12, 2020 12:00 PM VA-TOBACCO FORMER USER [facility] Nov 12, 2020 12:00 PM VA-TOBACCO QUIT 5 TO < 15 YRS [facility] May 31, 2019 06:22 AM INPT NO TOBACCO USE IN LAST 30 D AYS [facility] Nov 08, 2017 01:55 PM VA-TOBACCO FORMER USER [facility] Nov 08, 2017 01:55 PM VA-TOBACCO QUIT 1 TO < 5 YRS [facility] May 11, 2017 12:43 PM FORMER TOBACCO USE >1Y <7Y [facility] Aug 04, 2016 10:25 AM FORMER TOBACCO USE >1Y <7Y [facility] Aug 04, 2015 11:31 AM FORMER TOBACCO USE <1Y [facility] Aug 13, 2014 10:50 AM CURRENT TOBACCO USER [facility] October 10, 2013 09:12 AM FORMER TOBACCO USER 7Y OR GREATE R [facility] May 26, 2012 10:14 AM CURRENT TOBACCO USER [facility] Nov 19, 2009 12:07 PM CURRENT TOBACCO USER [facility] Advance Directives: All historical and current Section Date Range: From patient's date of to the date document was created. This section includes ALL of a patient's completed or amended [place] Advance and Rescinded Directives. The entries below indicate that a directive exists for the patient, but an actual copy is not included with this document. The data comes from all [place] facilities. Date Advance Directives Provider Source Oct 31, 2023 ADVANCE DIRECTIVE CVHERLINDA JOHNSON OUD (DOM) Oct 17, 2023 ADVANCE DIRECTIVE DISCUSSION [place] [facility] May 11, 2006 ADVANCE DIRECTIVE PEDRO CAMACHO [facility] Encounter Notes: All associated encounter notes This section contains the clinical notes associated to the Encounter. Date/Time Encounter Note(s) Provider Source May 23, 2024 10:00 AM MENTAL HEALTH GROU P COUNSELING NOTE: LOCAL TITLE: MH GROUP NOTE STANDARD TITLE: MENTAL HEALTH GROUP COUNSELING NOTE DATE OF NOTE: MAY 23, 2024@10:00 ENTRY DATE: MAY 23, 2024@10:21:43 AUTHOR: MUNA VINCENT EXP COSIGNER: URGENCY: STATUS: COMPLETED Group Title: ADS Tuesday Aftercare Group Length: 90 minutes/Frequency: Once weekly [place] seen by WEBEX Number of veterans in group: 7 Modality: Supportive therapy; CBT; Motivational Interviewing, Relational Rfid Analyst(s): SERGE Terrell, MITZI Date of Attendance: May 23, 2024 via WEBEX Conference call due to [id number]. [place] agreed to meet by WEBEX and is [...] combat Alcohol Use Disorder, Severe Depressive Disorder [place] reports sobriety. Veterans were fully informed on [...] teleconferencing (CVT) to home. Visit conducted via Oree video conferencing platform during COVID-19 National Emergency in order to avoid delay in care as [place] Video Connect is not available for hybrid video/telephone groups. [place] has been informed of and verbally consented [...] coping skills, articulates josh /ubaldo/ SERGE RODRIGUEZ, [facility] CLINICAL BUNCH TRIMMER MOLD Signed: 05/23/2024 12:43 MUNA VINCENT [facility]
--- OUTSIDE RECORDS SUMMARY | 2024-05-30 05:00 | XMS_ITS | Encounter Summary ---
Author Name [facility] [place] Address [address] [place] [address] Care Team Providers Care Activities Coordinator Name Role Phone HA HENDERSON Primary [...] Relationship to Policy Hurt [facility] ([facility]) MEDICARE ADVANTAGE MCR ([facility]) May 16, 2023 [id number] JEAN JAIN IN PATIENT [facility] ([facility]) MEDICARE ADVANTAGE [facility] ([facility]) May 16, 2023 [id number] JEAN JAIN IN PATIENT Selected Encounter This section includes the information on record at [place] for the Encounter. Date/Time Encounter Type Encounter Description Reason Provider Source May 30, 2024 10:00 AM GROUP PSYCHOTHERAPY [facility] ICD-10-CM F43.12 Post-traumati c stress disorder, chronic VINCENT,MUNA R IHE Encounter Template Text not used by VA Assessments - Encounter Diagnoses This section includes the primary and secondary diagnoses documented for the Encounter. Date/Time Primary/Secondary Diagnosis Diagnosis Name Provider Source May 30, 2024 11:41 AM PRIMARY Post-traumatic stress disorder, chronic MUNA VINCENT [facility] May 30, 2024 11:41 AM SECONDARY Alcohol dependence, uncomplicated [facility] May 30, 2024 11:41 AM SECONDARY Depression, unspecified [facility] Plan of Treatment: Future Appointments (+ 6 months) and Future Tests (+/- 45 days) The Plan of Treatment section includes future care activities for the patient [facility] [place] [facility] This section includes future appointments and future orders which are active, pending or scheduled. Future Appointments This section includes appointments that were scheduled to occur 6 months from the date of the Encounter, up to a maximum of 20 appointments. The data comes from all [place] [facility]. Appointment Date/Time Appointment Type Appointme nt Facility Name Jun 06, 2024 10:00 AM [facility] Jun 13, 2024 10:00 AM [facility] [place] [facility] Jun 15, 2024 09:30 AM [facility] [place] [facility] Jun 20, 2024 10:00 AM [place] [facility] Jul 04, 2024 10:00 AM [place] [facility] Jul 11, 2024 10:00 AM [facility] Jul 18, 2024 10[facility]00 AM [facility] Jul 23, 2024 02:30 PM [place] [facility] Jul 25, 2024 10:00 AM [place] [facility] Aug 01, 2024 10:00 AM [place] [facility] Aug 08, 2024 10:00 AM [place] [facility] Aug 14, 2024 07:15 AM [place] [facility] Aug 15, 2024 10:00 AM [place] [facility] Aug 29, 2024 10:00 AM [place] [facility] Sep 04, 2024 01:00 PM [place] [facility] Sep 05, 2024 10:00 AM [place] [facility] Sep 12, 2024 10:00 AM [facility] [place] [facility] September 19, 2024 10:00 AM AMBULATORY - PS[facility]CHIATRY [place] [facility] September 26, 2024 10:00 AM AMBULATORY - PSYCHIATRY [place] [facility] October 03, 2024 10:00 AM AMBULATORY - PSYCHIATRY [place] [facility] Social History: Smoking Status (Most current) [...] 02, 2023 11:00 AM VA-TOBACCO FORMER USER [facility] Tobacco Use History This section includes a history of the smoking, or tobacco-related health factors, that were collected on or before the date of the Encounter. The data comes from the [place] facility where the Encounter took place. Date/Time Smoking Status/Tobacco Use Comment F acility Jun 02, 2023 11:00 AM VA-TOBACCO QUIT 5 TO < 15 YRS [facility] May 21, 2022 10:30 AM VA-TOBACCO FORMER USER [facility] May 21, 2022 10:30 AM VA-TOBACCO QUIT 15 YRS OR MORE [facility] Nov 12, 2020 12:00 PM VA-TOBACCO FORMER USER [facility] Nov 12, 2020 12:00 PM VA-TOBACCO QUIT 5 TO < 15 YRS [facility] May 31, 2019 06:22 AM INPT NO TOBACCO USE IN LAST 30 D AYS [facility] Nov 08, 2017 01:55 PM VA-TOBACCO FORMER USER [facility] Nov 08, 2017 01:55 PM VA-TOBACCO QUIT 1 TO < 5 YRS [facility] May 11, 2017 12:43 PM FORMER TOBACCO USE >1Y <7Y [facility] Aug 04, 2016 10:25 AM FORMER TOBACCO USE >1Y <7Y [facility] Aug 04, 2015 11:31 AM FORMER TOBACCO USE <1Y [facility] Aug 13, 2014 10:50 AM CURRENT TOBACCO USER [facility] October 10, 2013 09:12 AM FORMER TOBACCO USER 7Y OR GREATE R [facility] May 26, 2012 10:14 AM CURRENT TOBACCO USER [facility] Nov 19, 2009 12:07 PM CURRENT TOBACCO USER [facility] Advance Directives: All historical and current [...] 17, 2023 ADVANCE DIRECTIVE DISCUSSION [place] [facility] May 11, 2006 ADVANCE DIRECTIVE PEDRO CAMACHO [facility] Encounter Notes: All associated encounter notes This section contains the clinical notes associated to the Encounter. Date/Time Encounter Note(s) Provider Source May 30, 2024 10:00 AM MENTAL HEALTH GROU P COUNSELING NOTE: LOCAL TITLE: MH GROUP NOTE STANDARD TITLE: MENTAL HEALTH GROUP COUNSELING NOTE DATE OF NOTE: MAY 30, 2024@10:00 ENTRY DATE: MAY 30, 2024@10:12:13 AUTHOR: MUNA VINCENT EXP COSIGNER: URGENCY: STATUS: COMPLETED Group Title: ADS Tuesday Aftercare Group Length: 90 minutes/Frequency: Once weekly [place] seen by [facility]BEX Number of veterans in group: 7 Modality: Supportive therapy; CBT; Motivational Interviewing, Relational Automotive Vehicle Inspector(s): SERGE Terrell, MITZI Date of Attendance: May 30, 2024 via WEBEX Conference call due to [id number]. [place] agreed to meet by WEBEX and is [...] combat Alcohol Use Disorder, Severe Depressive Disorder [place] reports sobriety. Veterans were fully informed on [...] teleconferencing (CVT) to home. Visit conducted via Aveillant video conferencing platform during COVID-19 National Emergency in order to avoid delay in care as [place] Video Connect is not available for hybrid video/telephone groups. [place] has been informed of and verbally consented [...] coping skills, articulates josh /ubaldo/ SERGE RODRIGUEZ, [facility] CLINICAL LINEN SUPPLY LOAD BUILDER Signed: 05/30/2024 11:42 MUNA VINCENT [facility]
--- OUTSIDE RECORDS SUMMARY | 2024-06-06 05:00 | XMS_ITS | Encounter Summary ---
Author Name [facility] [place] Address [address] [place] [address] Care Team Providers Care Touch Up Edger Name Role Phone HA HENDERSON Primary Care [...] Hurt's Name Patient's Relationship to Policy Hurt [facility] ([facility]) MEDICARE ADVANTAGE MCR ([facility]) May 16, 2023 [id number] JEAN JAIN IN PATIENT [facility] ([facility]) MEDICARE ADVANTAGE [facility] ([facility]) May 16, 2023 [id number] 17 JEAN JAIN IN PATIENT Selected Encounter This section includes the information on record at [place] for the Encounter. Date/Time Encounter Type Encounter Description Reason Provider Source Jun 06, 2024 10:00 AM GROUP PSYCHOTHERAPY [facility]GROUP ICD-10-CM F43.12 Post-traumati c stress disorder, chronic VINCENT,MUNA R IHE Encounter Template Text not used by VA Assessments - Encounter Diagnoses This section includes the primary and secondary diagnoses documented for the Encounter. Date/Time Primary/Secondary Diagnosis Diagnosis Name Provider Source Jun 06, 2024 01:17 PM PRIMARY Post-traumatic stress disorder, chronic MUNA VINCENT [facility] Jun 06, 2024 01:17 PM SECONDARY Alcohol dependence, uncomplicated MUNA VINCENT [facility] Jun 06, 2024 01:17 PM SECONDARY Depression, unspecified [facility] Plan of Treatment: Future Appointments (+ 6 months) and Future Tests (+/- 45 days) The Plan of Treatment section includes future care activities for the patient [facility] [place] [facility] This section includes future appointments and future orders which are active, pending or scheduled. Future Appointments This section includes appointments that were scheduled to occur 6 months from the date of the Encounter, up to a maximum of 20 appointments. The data comes from all [place] [facility]. Appointment Date/Time Appointment Type Appointme nt Facility Name Jun 13, 2024 10:00 AM [facility] Jun 15, 2024 09:30 AM AMBULATORY - MEDICINE [facility] Jun 20, 2024 10:00 [facility] Jul 04, 2024 10:00 AM [place] [facility] Jul 11, 2024 10:00 AM [facility] Jul 18[facility] 2024 10[facility]00 [facility] Jul 23, 2024 02:30 PM [place] [facility] Jul 25, 2024 10:00 AM [place] [facility] Aug 01, 2024 10:00 AM [place] [facility] Aug 08, 2024 10:00 AM [place] [facility] Aug 14, 2024 07:15 AM AM[place]ORY - [place]ONE [place] [facility] Aug 15, 2024 10:00 AM [place] [facility] Aug 29, 2024 10:00 AM [place] [facility] Sep 04, 2024 01:00 PM [place] [facility] Sep 05, 2024 10:00 AM [place] [facility] Sep 12, 2024 10:00 AM [place] [facility] September 19, 2024 10:00 [facility] September 26, 2024 10:00 AM AM[facility]ULATORY - PS[facility]CHIATRY [facility] October 03, 2024 10:00 AM AMBULATORY - PSYCHIATRY [place] [facility] October 10, 2024 10:00 AM AMBULATORY - PS[facility]CHIATRY [place] [facility] Social History: Smoking Status [...] 17, 2023 ADVANCE DIRECTIVE DISCUSSION [place] [facility] May 11, 2006 ADVANCE DIRECTIVE PEDRO CAMACHO [facility] Encounter Notes: All associated encounter notes This section contains the clinical notes associated to the Encounter. Date/Time Encounter Note(s) Provider Source Jun 06, 2024 10:00 AM MENTAL HEALTH GROU P COUNSELING NOTE: LOCAL TITLE: MH GROUP NOTE STANDARD TITLE: MENTAL HEALTH GROUP COUNSELING NOTE DATE OF NOTE: JUN 06, 2024@10:00 ENTRY DATE: JUN 06, 2024@11:04:38 AUTHOR: MUNA VINCENT EXP COSIGNER: URGENCY: STATUS: COMPLETED Group Title: ADS Tuesday Aftercare Group Length: 90 minutes/Frequency: Once weekly [place] seen by WEBEX Number of veterans in group: 9 Modality: Supportive therapy; CBT; Motivational Interviewing, Relational Adult Probation Officer(s): SREGE Trerell, MITZI Date of Attendance: June 06, 2024 via WEBEX Conference call due to [id number]. [place] agreed to meet by WEBEX and is [...] combat Alcohol Use Disorder, Severe Depressive Disorder [place] reports sobriety. Veterans were fully informed on [...] teleconferencing (CVT) to home. Visit conducted via Tushky video conferencing platform during COVID-19 National Emergency in order to avoid delay in care as [place] Video Connect is not available for hybrid video/telephone groups. [place] has been informed of and verbally consented [...] Protective Factors: Service Dog, family -sister in [place], sister in [place], brother [place], financially ok, [...] coping skills, articulates josh /ubaldo/ SERGE RODRIGUEZ, [facility] CLIN[facility] IDE[employer] MAN Signed: 06/06/2024 13:18 MUNA VINCENT [facility]
--- OUTSIDE RECORDS SUMMARY | 2024-06-13 05:00 | XMS_ITS | Encounter Summary ---
Author Name [facility] [place] Address [address] [place] [address] Care Team Providers Care Entry Level Truck Driver Name Role Phone HA HENDERSON Primary [...] Name Patient's Relationship to Policy Hurt [facility] ([facility]) MEDICARE ADVANTAGE MCR ([facility]) May 16, 2023 [id number] JEAN JAIN IN PATIENT [facility] (WNR) MEDICARE ADVANTAGE [facility] ([facility]) May 16, 2023 [id number] 17 JEAN JAIN IN PATIENT Selected Encounter This section includes the information on record at [place] for the Encounter. Date/Time Encounter Type Encounter Description Reason Provider Source Jun 13, 2024 10:00 AM GROUP PSYCHOTHERAPY [facility] ICD-10-CM F43.12 Post-traumati c stress disorder, chronic VINCENT,MUNA R IHE Encounter Template Text not used by VA Assessments - Encounter Diagnoses This section includes the primary and secondary diagnoses documented for the Encounter. Date/Time Primary/Secondary Diagnosis Diagnosis Name Provider Source Jun 13, 2024 12:04 PM PRIMARY Post-traumatic stress disorder, chronic MUNA VINCENT [facility] Jun 13, 2024 12:04 PM SECONDARY Alcohol dependence, uncomplicated [facility] Jun 13, 2024 12:04 PM SECONDARY Depression, unspecified [facility] Plan of Treatment: Future Appointments (+ 6 months) and Future Tests (+/- 45 days) The Plan of Treatment section includes future care activities for the patient from all [place] [facility]. This section includes future appointments and future orders which are active, pending or scheduled. Future Appointments This section includes appointments that were scheduled to occur 6 months from the date of the Encounter, up to a maximum of 20 appointments. The data comes from all [place] treatment [facility]. Appointment Date/Time Appointment Type Appointme nt Facility Name Jun 15, 2024 09:30 AM [facility] Jun 20, 2024 10:00 AM [facility] Jul 04, 2024 10:00 AM [facility] [place] [facility] Jul 11, 2024 10:00 AM [place] [place] [facility] Jul 18, 2024 10:00 AM [facility] Jul 23, 2024 02:30 PM [facility] Jul 25, 2024 10:00 [facility] Aug 01, 2024 10:00 AM [facility] [place] [facility] Aug 08, 2024 10:00 AM [place] [place] [facility] Aug 14, 2024 07:15 AM [place] [place] [facility] Aug 15, 2024 10:00 AM [place] [place] [facility] Aug 29, 2024 10:00 AM [place] [place] [facility] Sep 04, 2024 01:00 PM [place] [place] [facility] Sep 05, 2024 10:00 AM [place] [place] [facility] Sep 12, 2024 10:00 AM [place] [facility] September 19, 2024 10:00 AM [place] [place] [facility] September 26, 2024 10:00 AM [facility] October 03, 2024 10:00 AM AM[facility]ULATORY - PS[facility]CHIATRY [facility] October 10, 2024 10:00 AM AMBULATORY - PSYCHIATRY CO [facility] Oct 16, 2024 01:00 PM AMBULATORY - PSYCHIATRY CO [facility] Social History: Smoking Status (Most [...] this document. The data comes from all [place] facilities. Date Advance Directives Provider Source Oct 31, 2023 ADVANCE DIRECTIVE HERLINDA SONG OUD (DOM) Oct 17, 2023 ADVANCE DIRECTIVE DISCUSSION [place] [facility] May 11, 2006 ADVANCE DIRECTIVE PEDRO CAMACHO [facility] Encounter Notes: All associated encounter notes This section contains the clinical notes associated to the Encounter. Date/Time Encounter Note(s) Provider Source Jun 13, 2024 10:00 AM MENTAL HEALTH GROU P COUNSELING NOTE: LOCAL TITLE: MH GROUP NOTE STANDARD TITLE: MENTAL HEALTH GROUP COUNSELING NOTE DATE OF NOTE: JUN 13, 2024@10:00 ENTRY DATE: JUN 13, 2024@10:12:06 AUTHOR: MUNA VINCENT EXP COSIGNER: URGENCY: STATUS: COMPLETED Group Title: ADS Tuesday Aftercare Group Length: 90 minutes/Frequency: Once weekly [place] seen by WEBEX Number of veterans in group: 9 Modality: Supportive therapy; CBT; Motivational Interviewing, Relational Heating And Ventilating Worker(s): SERGE Terrell, MITZI Date of Attendance: June 13, 2024 via [facility] Conference call due to [id number]. Pablo agreed to meet by WEBEX and is [...] combat Alcohol Use Disorder, Severe Depressive Disorder Pablo reports sobriety. Veterans were fully informed on [...] teleconferencing (CVT) to home. Visit conducted via [employer] video conferencing platform during COVID-19 National Emergency in order to avoid delay in care as [place] Video Connect is not available for hybrid video/telephone groups. Pablo has been informed of and verbally consented [...] Protective Factors: Service Dog, family -sister in [place], sister in [place], brother [place], financially ok, [...] coping skills, articulates josh /ubaldo/ SERGE RODRIGUEZ, [facility] CLINICAL CHAR CONVEYOR TENDER CELLAR Signed: 06/13/2024 12:04 MUNA VINCENT [facility]
--- OUTSIDE RECORDS SUMMARY | 2024-06-20 05:00 | XMS_ITS | Encounter Summary ---
Author Name Department [place] Address [address] [place] [address] Care Team Providers Care Candy Separator Enrobing Name Role Phone HA HENDERSON Primary Care [...] Name Patient's Relationship to Policy Hurt [facility] (R) MEDICARE ADVANTAGE MCR ([facility]) May 16, 2023 [id number] JEAN JAIN IN PATIENT [facility] (WNR) MEDICARE ADVANTAGE [facility] ([facility]) May 16, 2023 [id number] 17 JEAN JAIN IN PATIENT Selected Encounter This section includes the information on record at [place] for the Encounter. Date/Time Encounter Type Encounter Description Reason Provider Source Jun 20, 2024 10:00 AM GROUP PSYCHOTHERAPY [facility] ICD-10-CM F43.10 Post-traumatic stress disorder, unspecified MUNA VINCENT Encounter Template Text not used by VA Assessments - Encounter Diagnoses This section includes the primary and secondary diagnoses documented for the Encounter. Date/Time Primary/Secondary Diagnosis Diagnosis Name Provider Source Jun 20, 2024 12:14 PM PRIMARY Post-traumatic stress disorder, unspecified MUNA VINCENT [facility] Jun 20, 2024 12:14 PM SECONDARY Alcohol dependence, uncomplicated MUNA VINCENT [facility] Jun 20, 2024 12:14 PM SECONDARY Depression, unspecified [facility] Plan of Treatment: Future Appointments (+ 6 months) and Future Tests (+/- 45 days) The Plan of Treatment section includes future care activities for the patient from all [place] [facility]. This section includes future appointments and future orders which are active, pending or scheduled. Future Appointments This section includes appointments that were scheduled to occur 6 months from the date of the Encounter, up to a maximum of 20 appointments. The data comes from all [place] treatment facilities. Appointment Date/Time Appointment Type Appointme nt Facility Name Jul 04, 2024 10:00 AM [place] [facility] Jul 11, 2024 10:00 AM [place] [facility] Jul 18, 2024 10:00 AM [place] [facility] Jul 23, 2024 02:30 PM AM[place] [facility] Jul 25, 2024 10:00 AM AM[place] [facility] Aug 01, 2024 10:00 AM AM[place] [facility] Aug 08, 2024 10:00 AM [place] [facility] Aug 14, 2024 07:15 AM [facility] Aug 15, 2024 10:00 AM [place] [facility] Aug 29, 2024 10:00 AM AM[place] [facility] Sep 04, 2024 01:00 PM AMBULATORY [place] [facility] Sep 05, 2024 10:00 AM AM[place] [facility] Sep 12, 2024 10:00 AM AM[place] [facility] September 19, 2024 10:00 AM AM[place] [facility] September 26, 2024 10:00 AM AM[place] [facility] October 03, 2024 10:00 AM AM[place] [facility] October 10, 2024 10:00 AM AM[place] [facility] Oct 16, 2024 01:00 PM AMBULATORY - PSYCHIATRY NM [facility] Oct 24, 2024 10:00 AM AMBULATORY - PSYCHIATRY [facility] Oct 31, 2024 10:00 AM AMBULATORY - PSYCHIATRY [facility] Social History: Smoking Status (Most [...] 02, 2023 11:00 AM VA-TOBACCO FORMER USER [facility] Tobacco Use History This section includes a history of the smoking, or tobacco-related health factors, that were collected on or before the date of the Encounter. The data comes from the [place] facility where the Encounter took place. Date/Time Smoking Status/Tobacco Use Comment F acility Jun 02, 2023 11:00 AM VA-TOBACCO QUIT 5 TO < 15 YRS [facility] May 21, 2022 10:30 AM VA-TOBACCO FORMER USER [facility] May 21, 2022 10:30 AM VA-TOBACCO QUIT 15 YRS OR MORE [facility] Nov 12, 2020 12:00 PM VA-TOBACCO FORMER USER [facility] Nov 12, 2020 12:00 PM VA-TOBACCO QUIT 5 TO < 15 YRS [facility] May 31, 2019 06:22 AM INPT NO TOBACCO USE IN LAST 30 D AYS [facility] Nov 08, 2017 01:55 PM VA-TOBACCO FORMER USER [facility] Nov 08, 2017 01:55 PM VA-TOBACCO QUIT 1 TO < 5 YRS [facility] May 11, 2017 12:43 PM FORMER TOBACCO USE >1Y <7Y [facility] Aug 04, 2016 10:25 AM FORMER TOBACCO USE >1Y <7Y [facility] Aug 04, 2015 11:31 AM FORMER TOBACCO USE <1Y [facility] Aug 13, 2014 10:50 AM CURRENT TOBACCO USER [facility] October 10, 2013 09:12 AM FORMER TOBACCO USER 7Y OR GREATE R [facility] May 26, 2012 10:14 AM CURRENT TOBACCO USER [facility] Nov 19, 2009 12:07 PM CURRENT TOBACCO USER [facility] Advance Directives: All historical and current Section Date Range: From patient's date of to the date document was created. This section includes ALL of a patient's completed or amended [place] Advance and Rescinded Directives. The entries below indicate that a directive exists for the patient, but an actual copy is not included with this document. The data comes from all [place] facilities. Date Advance Directives Provider Source Oct 31, 2023 ADVANCE DIRECTIVE HERLINDA SONG OUD (DOM) Oct 17, 2023 ADVANCE DIRECTIVE DISCUSSION [place] [facility] May 11, 2006 ADVANCE DIRECTIVE PEDRO CAMACHO [facility] Encounter Notes: All associated encounter notes This section contains the clinical notes associated to the Encounter. Date/Time Encounter Note(s) Provider Source Jun 20, 2024 10:00 AM MENTAL HEALTH GROU P COUNSELING NOTE: LOCAL TITLE: MH GROUP NOTE STANDARD TITLE: MENTAL HEALTH GROUP COUNSELING NOTE DATE OF NOTE: JUN 20, 2024@10:00 ENTRY DATE: JUN 20, 2024@10:34:51 AUTHOR: MUNA VINCENT COSIGNER: URGENCY: STATUS: COMPLETED Group Title: ADS Tuesday Aftercare Group Length: 90 minutes/Frequency: Once weekly [place] seen by [facility] Number of veterans in group: 10 Modality: Supportive therapy; CBT; Motivational Interviewing, Relational Chief Clinical Officer(s): SERGE Terrell, MITZI Date of Attendance: June 20, 2024 via WEB[employer] Conference call due to [id number]. [place] agreed to meet by WEBEX and is [...] teleconferencing (CVT) to home. Visit conducted via [employer] video conferencing platform during COVID-19 National Emergency in order to avoid delay in care as [place] Video Connect is not available for hybrid [...] Protective Factors: Service Dog, family -sister in [place], sister in [place], brother [place], financially ok, [...] skills, articulates josh /ubaldo/ SERGE RODRIGUEZ, [facility] CLINICAL PRINT WASHER Signed: 06/20/2024 12:19 MUNA VINCENT [facility]
--- OUTSIDE RECORDS SUMMARY | 2024-07-04 05:00 | XMS_ITS | Encounter Summary ---
Author Name Department [place] Organization [place] Address [address] [place] [address] Care Team Providers Care Detention Deputy Name Role Phone HA HENDERSON Primary Care [...] Hurt's Name Patient's Relationship to Policy Hurt [facility] (R) MEDICARE ADVANTAGE MCR ([facility]) May 16, 2023 [id number] JEAN JAIN IN PATIENT [facility] (WNR) MEDICARE ADVANTAGE [facility] ([facility]) May 16, 2023 [id number] 17 JEAN JAIN IN PATIENT Selected Encounter This section includes the information on record at [place] for the Encounter. Date/Time Encounter Type Encounter Description Reason Provider Source Jul 04, 2024 10:00 AM GROUP PSYCHOTHERAPY [facility] CLINIC-GROUP ICD-10-CM F43.12 Post-traumati c stress disorder, chronic VINCENT,MUNA R IHE Encounter Template Text not used by VA Assessments - Encounter Diagnoses This section includes the primary and secondary diagnoses documented for the Encounter. Date/Time Primary/Secondary Diagnosis Diagnosis Name Provider Source Jul 04, 2024 12:21 PM PRIMARY Post-traumatic stress disorder, chronic [facility] Jul 04, 2024 12:21 PM SECONDARY Alcohol dependence, uncomplicated [facility] Jul 04, 2024 12:21 PM SECONDARY Depression, unspecified [facility] Plan of Treatment: Future Appointments (+ 6 months) and Future Tests (+/- 45 days) The Plan of Treatment section includes future care activities for the patient from all [place] [facility]. This section includes future appointments and future orders which are active, pending or scheduled. Future Appointments This section includes appointments that were scheduled to occur 6 months from the date of the Encounter, up to a maximum of 20 appointments. The data comes from all [place] treatment facilities. Appointment Date/Time Appointment Type Appointme nt Facility Name Jul 11, 2024 10:00 AM AM[place]UL[place] [facility] Jul 18, 2024 10:00 AM [facility] Jul 23, 2024 02:30 PM AM[place] [place] [facility] Jul 25, 2024 10:00 AM AM[place] [facility] Aug 01, 2024 10:00 AM AM[place] [facility] Aug 08, 2024 10:00 AM AM[place] [facility] Aug 14, 2024 07:15 AM AMBULATORY - NONE [facility] Aug 15, 2024 10:00 AM AM[place] [facility] Aug 29, 2024 10:00 AM AM[place]UL[place] [facility] Sep 04, 2024 01:00 PM AM[place] [facility] Sep 05, 2024 10:00 AM AM[place] [facility] Sep 12, 2024 10:00 AM AM[place] [facility] September 19, 2024 10:00 AM AM[place] [facility] September 26, 2024 10:00 AM AM[place] [facility] October 03, 2024 10:00 AM AM[place]ULAT[place] [facility] October 10, 2024 10:00 AM AM[place] [facility] Oct 16, 2024 01:00 PM AMBULATORY [place] [facility] Oct 24, 2024 10:00 AM [facility] Oct 31, 2024 10:00 AM AMBULATORY - PSYCHIATRY [place] [facility] Nov 26, 2024 10:30 AM [facility] Social History: Smoking Status (Most [...] QUIT 5 TO < 15 YRS [facility] Tobacco Use History This section includes a history of the smoking, or tobacco-related health factors, that were collected on or before the date of the Encounter. The data comes from the [place] facility where the Encounter took place. Date/Time Smoking Status/Tobacco Use Comment F acility Jun 02, 2023 11:00 AM VA-TOBACCO QUIT 5 TO < 15 YRS [facility] May 21, 2022 10:30 AM VA-TOBACCO FORMER USER [facility] May 21, 2022 10:30 AM VA-TOBACCO QUIT 15 YRS OR MORE [facility] Nov 12, 2020 12:00 PM VA-TOBACCO FORMER USER [facility] Nov 12, 2020 12:00 PM [place]-TOBACCO QUIT 5 TO < 15 YRS [facility] May 31, 2019 06:22 AM INPT NO TOBACCO USE IN LAST 30 D AYS [facility] Nov 08, 2017 01:55 PM VA-TOBACCO FORMER USER [facility] Nov 08, 2017 01:55 PM [place]-TOBACCO QUIT 1 TO < 5 YRS [facility] May 11, 2017 12:43 PM FORMER TOBACCO USE >1Y <7Y [facility] Aug 04, 2016 10:25 AM FORMER TOBACCO USE >1Y <7Y [facility] Aug 04, 2015 11:31 AM FORMER TOBACCO USE <1Y [facility] Aug 13, 2014 10:50 AM CURRENT TOBACCO USER [facility] October 10, 2013 09:12 AM FORMER TOBACCO USER 7Y OR GREATE R [facility] May 26, 2012 10:14 AM CURRENT TOBACCO USER [facility] Nov 19, 2009 12:07 PM CURRENT TOBACCO USER [facility] Advance Directives: All historical and [...] Oct 17, 2023 ADVANCE DIRECTIVE DISCUSSION [facility] May 11, 2006 ADVANCE DIRECTIVE PEDRO CAMACHO [facility] Encounter Notes: All associated encounter notes This section contains the clinical notes associated to the Encounter. Date/Time Encounter Note(s) Provider Source Jul 04, 2024 10:00 AM MENTAL HEALTH GROU P COUNSELING NOTE: LOCAL TITLE: MH GROUP NOTE STANDARD TITLE: MENTAL HEALTH GROUP COUNSELING NOTE DATE OF NOTE: JUL 04, 2024@10:00 ENTRY DATE: JUL 04, 2024@11:20:09 AUTHOR: MUNA VINCENT COSIGNER: URGENCY: STATUS: COMPLETED Group Title: ADS Tuesday Aftercare Group Length: 90 minutes/Frequency: Once weekly seen by [facility] Number of veterans in group: 9 Modality: Supportive therapy; CBT; Motivational Interviewing, Relational Service Dismantler(s): SERGE Terrell, MITZI Date of Attendance: July 04, 2024 via WEBEX Conference call due to [id number]. [place] agreed to meet by WEBEX and is [...] teleconferencing (CVT) to home. Visit conducted via [employer] video conferencing platform during COVID-19 National Emergency in order to avoid delay in care as [place] Video Connect is not available for hybrid [...] Protective Factors: Service Dog, family -sister in [place], sister in [place], brother [place], financially ok, [...] coping skills, articulates josh /ubaldo/ SERGE RODRIGUEZ, [facility] CLINICAL [place] Signed: 07/04/2024 12:21 MUNA VINCENT [facility]
--- OUTSIDE RECORDS SUMMARY | 2024-07-11 05:00 | XMS_ITS | Encounter Summary ---
Author Name [facility] [place] Address [address] [place] [address] Care Team Providers Care Sas Statistical Programmer Name Role Phone HA HENDERSON Primary Care [...] Hurt's Name Patient's Relationship to Policy Hurt [facility] (R) MEDICARE ADVANTAGE MCR ([facility]) May 16, 2023 [id number] JEAN JAIN IN PATIENT [facility] (WNR) MEDICARE ADVANTAGE [facility] ([facility]) May 16, 2023 [id number] 17 JEAN JAIN IN PATIENT Selected Encounter This section includes the information on record at [place] for the Encounter. Date/Time Encounter Type Encounter Description Reason Provider Source Jul 11, 2024 10:00 AM GROUP PSYCHOTHERAPY [facility] ICD-10-CM F43.10 Post-traumatic stress disorder, unspecified MUNA VINCENT Encounter Template Text not used by VA Assessments - Encounter Diagnoses This section includes the primary and secondary diagnoses documented for the Encounter. Date/Time Primary/Secondary Diagnosis Diagnosis Name Provider Source Jul 11, 2024 11:36 AM PRIMARY Post-traumatic stress disorder, unspecified MUNA VINCENT [facility] Jul 11, 2024 11:36 AM SECONDARY Alcohol dependence, uncomplicated MUNA VINCENT [facility] Jul 11, 2024 11:36 AM SECONDARY Depression, unspecified [facility] Plan of Treatment: Future Appointments (+ 6 months) and Future Tests (+/- 45 days) The Plan of Treatment section includes future care activities for the patient from all [place] [facility]. This section includes future appointments and future orders which are active, pending or scheduled. Future Appointments This section includes appointments that were scheduled to occur 6 months from the date of the Encounter, up to a maximum of 20 appointments. The data comes from all [place] treatment facilities. Appointment Date/Time Appointment Type Appointme nt Facility Name Jul 18, 2024 10:00 AM [facility]UL[facility] Jul 23, 2024 02:30 PM [facility] Jul 25, 2024 10:00 AM [facility] Aug 01, 2024 10:00 AM [facility] Aug 08, 2024 10:00 AM [facility] Aug 14, 2024 07:15 AM [facility] Aug 15, 2024 10:00 AM [facility] Aug 29, 2024 10:00 AM [facility] Sep 04, 2024 01:00 PM [facility] Sep 05, 2024 10:00 AM [facility] Sep 12, 2024 10:00 AM [facility] September 19, 2024 10:00 AM [facility] September 26, 2024 10:00 AM [facility] October 03, 2024 10:00 AM [facility] October 10, 2024 10:00 AM [facility] Oct 16, 2024 01:00 PM [facility] Oct 24, 2024 10:00 AM [facility] Oct 31, 2024 10:00 AM AMBULATORY - PS[facility]CHIATRY [facility] Nov 26, 2024 10:30 AM [facility] Nov 27, 2024 01:00 PM AMBULATORY - PSYCHIATRY [facility] Social History: Smoking Status [...] 02, 2023 11:00 AM VA-TOBACCO FORMER USER [facility] Tobacco Use History This section includes a history of the smoking, or tobacco-related health factors, that were collected on or before the date of the Encounter. The data comes from the [place] facility where the Encounter took place. Date/Time Smoking Status/Tobacco Use Comment F acility Jun 02, 2023 11:00 AM VA-TOBACCO QUIT 5 TO < 15 YRS [facility] May 21, 2022 10:30 AM VA-TOBACCO FORMER USER [facility] May 21, 2022 10:30 AM VA-TOBACCO QUIT 15 YRS OR MORE [facility] Nov 12, 2020 12:00 PM VA-TOBACCO FORMER USER [facility] Nov 12, 2020 12:00 PM VA-TOBACCO QUIT 5 TO < 15 YRS [facility] May 31, 2019 06:22 AM INPT NO TOBACCO USE IN LAST 30 D AYS [facility] Nov 08, 2017 01:55 PM VA-TOBACCO FORMER USER [facility] Nov 08, 2017 01:55 PM VA-TOBACCO QUIT 1 TO < 5 YRS [facility] May 11, 2017 12:43 PM FORMER TOBACCO USE >1Y <7Y [facility] Aug 04, 2016 10:25 AM FORMER TOBACCO USE >1Y <7Y [facility] Aug 04, 2015 11:31 AM FORMER TOBACCO USE <1Y [facility] Aug 13, 2014 10:50 AM CURRENT TOBACCO USER [facility] October 10, 2013 09:12 AM FORMER TOBACCO USER 7Y OR GREATE R [facility] May 26, 2012 10:14 AM CURRENT TOBACCO USER [facility] Nov 19, 2009 12:07 PM CURRENT TOBACCO USER [facility] Advance Directives: All historical and current Section Date Range: From patient's date of to the date document was created. This section includes ALL of a patient's completed or amended [place] Advance and Rescinded Directives. The entries below indicate that a directive exists for the patient, but an actual copy is not included with this document. The data comes from all [place] facilities. Date Advance Directives Provider Source Oct 31, 2023 ADVANCE DIRECTIVE HERLINDA SONG OUD (DOM) Oct 17, 2023 ADVANCE DIRECTIVE DISCUSSION [facility] MAN [facility] May 11, 2006 ADVANCE DIRECTIVE PEDRO CAMACHO [facility] Encounter Notes: All associated encounter notes This section contains the clinical notes associated to the Encounter. Date/Time Encounter Note(s) Provider Source Jul 11, 2024 10:00 AM MENTAL HEALTH GROU P COUNSELING NOTE: LOCAL TITLE: MH GROUP NOTE STANDARD TITLE: MENTAL HEALTH GROUP COUNSELING NOTE DATE OF NOTE: JUL 11, 2024@10:00 ENTRY DATE: JUL 11, 2024@10:14:14 AUTHOR: MUNA VINCENT EXP COSIGNER: URGENCY: STATUS: COMPLETED Group Title: ADS Tuesday Aftercare Group Length: 90 minutes/Frequency: Once weekly seen by [employer] Number of veterans in group: 8 Modality: Supportive therapy; CBT; Motivational Interviewing, Relational Contact Center Rep(s): SERGE Terrell, MITZI Date of Attendance: July 11, 2024 via [employer] Conference call due to [id number]. [place] agreed to meet by [employer] and is [...] teleconferencing (CVT) to home. Visit conducted via Canva video conferencing platform during COVID-19 National Emergency in order to avoid delay in care as [place] Video Connect is not available for hybrid video/telephone groups. has been informed of and verbally consented to confidentiality and its limits, including possible privacy risks using 3rd democrat applications. also advised that if they are not using unlimited Wi-Fi/do not have unlimited data, they may be charged regular data rates. Informed consent for treatment and limits of confidentiality, in addition to limits and benefits of treatment, were reviewed with the in our initial session, at which time they indicated understanding and agreement. Risk Assessment: Protective Factors: Service Dog, family -sister in [place], sister in [place], brother [place], financially ok, not suicidal Risk Factors: SI [...] coping skills, articulates josh /ubaldo/ SERGE RODRIGUEZ, [facility] CLINICAL NATURAL FOODS CLERK Signed: 07/11/2024 11:37 MUNA VINCENT [facility]
--- OUTSIDE RECORDS SUMMARY | 2024-07-18 05:00 | XMS_ITS | Encounter Summary ---
Author Name [facility] [place] Address [address] [place] [address] Care Team Providers Care Scrap Drop Engineer Name Role Phone HA HENDERSON Primary Care [...] Hurt's Name Patient's Relationship to Policy Hurt [facility] (R) MEDICARE ADVANTAGE MCR ([facility]) May 16, 2023 [id number] JEAN JAIN IN PATIENT [facility] (WNR) MEDICARE ADVANTAGE [facility] ([facility]) May 16, 2023 [id number] JEAN JAIN IN PATIENT Selected Encounter This section includes the information on record at [place] for the Encounter. Date/Time Encounter Type Encounter Description Reason Provider Source Jul 18, 2024 10:00 AM GROUP PSYCHOTHERAPY [facility]GROUP ICD-10-CM F43.12 Post-traumati c stress disorder, chronic VINCENT,MUNA R IHE Encounter Template Text not used by VA Assessments - Encounter Diagnoses This section includes the primary and secondary diagnoses documented for the Encounter. Date/Time Primary/Secondary Diagnosis Diagnosis Name Provider Source Jul 18, 2024 11:53 AM PRIMARY Post-traumatic stress disorder, chronic MUNA VINCENT [facility] Jul 18, 2024 11:53 AM SECONDARY Alcohol dependence, uncomplicated MUNA VINCENT [facility] Jul 18, 2024 11:53 AM SECONDARY Depression, unspecified [facility] Plan of Treatment: Future Appointments (+ 6 months) and Future Tests (+/- 45 days) The Plan of Treatment section includes future care activities for the patient from all [place] [facility]. This section includes future appointments and future orders which are active, pending or scheduled. Future Appointments This section includes appointments that were scheduled to occur 6 months from the date of the Encounter, up to a maximum of 20 appointments. The data comes from all [place] treatment [facility]. Appointment Date/Time Appointment Type Appointme nt Facility Name Jul 23, 2024 02:30 PM [facility] Jul 25, 2024 10:00 AM [facility] [place] [facility] Aug 01, 2024 10:00 AM [facility] [place] [facility] Aug 08, 2024 10:00 AM AM[place]UL[place] [place] [facility] Aug 14, 2024 07:15 AM AM[facility]ULATORY - NONE [place] [facility] Aug 15, 2024 10:00 AM AMBUL[place] [place] [facility] Aug 29, 2024 10:00 AM AMBUL[place] [place] [facility] Sep 04, 2024 01:00 PM AMBULAT[facility] [place] [facility] Sep 05, 2024 10:00 AM AM[place] [place] [facility] Sep 12, 2024 10:00 AM AM[place] [place] [facility] September 19, 2024 10:00 AM AM[place] [place] [facility] September 26, 2024 10:00 AM AM[place] [place] [facility] October 03, 2024 10:00 AM [place] [place] [facility] October 10, 2024 10:00 AM AM[place] [place] [facility] Oct 16, 2024 01:00 PM AM[place] [facility] Oct 24, 2024 10:00 AM AM[place] [place] [facility] Oct 31, 2024 10:00 AM AM[place] [facility] Nov 26, 2024 10:30 AM AMBULATORY - [facility]IC[facility] Nov 27, 2024 01:00 PM [facility] Social History: Smoking Status (Most current) and [...] 02, 2023 11:00 AM VA-TOBACCO FORMER USER [facility] [...] this document. The data comes from all [place] facilities. Date Advance Directives Provider Source Oct 31, 2023 ADVANCE DIRECTIVE HERLINDA SONG OUNahum (DOM) Oct 17, 2023 ADVANCE DIRECTIVE DISCUSSION SANDRA LAMBPALOMO [facility] May 11, 2006 ADVANCE DIRECTIVE PEDRO CAMACHO [facility] Encounter Notes: All associated encounter notes This section contains the clinical notes associated to the Encounter. Date/Time Encounter Note(s) Provider Source Jul 18, 2024 10:00 AM MENTAL HEALTH GROU P COUNSELING NOTE: LOCAL TITLE: MH GROUP NOTE STANDARD TITLE: MENTAL HEALTH GROUP COUNSELING NOTE DATE OF NOTE: JUL 18, 2024@10:00 ENTRY DATE: JUL 18, 2024@10:20:21 AUTHOR: MUNA VINCENT COSIGNER: URGENCY: STATUS: COMPLETED Group Title: ADS Tuesday Aftercare Group Length: 90 minutes/Frequency: Once weekly [place] seen by [employer] Number of veterans in group: 7 Modality: Supportive therapy; CBT; Motivational Interviewing, Relational Postdoctoral Research Fellow(s): SERGE Terrell, MITZI Date of Attendance: July 18, 2024 via Muse Conference call due to [id number]. agreed to meet by Muse and is aware it is not secure. [...] teleconferencing (CVT) to home. Visit conducted via [employer] video conferencing platform during COVID-19 National Emergency in order to avoid delay in care as [place] Video Connect is not available for hybrid video/telephone groups. has been informed of and verbally consented to confidentiality and its limits, including possible privacy risks using 3rd constitution party applications. [place] also advised that if they are not using unlimited Wi-Fi/do not have unlimited data, they may be charged regular data rates. Informed consent for treatment and limits of confidentiality, in addition to limits and benefits of treatment, were reviewed with the in our initial session, at which time they indicated understanding and agreement. Risk Assessment: Protective Factors: Service Dog, family -sister in [place], sister in [place], brother [place], financially ok, [...] coping skills, articulates josh /ubaldo/ SERGE RODRIGUEZ, [facility] CLINICAL INSPECTOR RAG SORTING Signed: 07/18/2024 11:54 MUNA VINCENT [facility]
--- OUTSIDE RECORDS SUMMARY | 2024-07-25 05:00 | XMS_ITS | Encounter Summary ---
Author Name [facility] [place] Address [address] [place] [address] Care Team Providers Care Cable Installation Technician Name Role Phone HA HENDERSON Primary Care [...] Hurt's Name Patient's Relationship to Policy Hurt [facility] (R) MEDICARE ADVANTAGE MCR ([facility]) May 16, 2023 [id number] JEAN JAIN IN PATIENT [facility] (WNR) MEDICARE ADVANTAGE [facility] ([facility]) May 16, 2023 [id number] 17 JEAN JAIN IN PATIENT Selected Encounter This section includes the information on record at [place] for the Encounter. Date/Time Encounter Type Encounter Description Reason Provider Source Jul 25, 2024 10:00 AM GROUP PSYCHOTHERAPY [facility]-GROUP ICD-10-CM F43.10 Post-traumatic stress disorder, unspecified MUNA VINCENT Encounter Template Text not used by VA Assessments - Encounter Diagnoses This section includes the primary and secondary diagnoses documented for the Encounter. Date/Time Primary/Secondary Diagnosis Diagnosis Name Provider Source Jul 25, 2024 12:01 PM PRIMARY Post-traumatic stress disorder, unspecified MUNA VINCENT [facility] Jul 25, 2024 12:01 PM SECONDARY Alcohol dependence, uncomplicated MUNA VINCENT [facility] Jul 25, 2024 12:01 PM SECONDARY Depression, unspecified [facility] Plan of Treatment: Future Appointments (+ 6 months) and Future Tests (+/- 45 days) The Plan of Treatment section includes future care activities for the patient from all [place] [facility]. This section includes future appointments and future orders which are active, pending or scheduled. Future Appointments This section includes appointments that were scheduled to occur 6 months from the date of the Encounter, up to a maximum of 20 appointments. The data comes from all [place] treatment [facility]. Appointment Date/Time Appointment Type Appointme nt Facility Name Aug 01, 2024 10:00 AM [facility] Aug 08, 2024 10:00 AM [facility] [place] [facility] Aug 14, 2024 07:15 AM [facility] Aug 15, 2024 10:00 AM [place] [place] [facility] Aug 29, 2024 10:00 AM AM[place] [place] [facility] Sep 04, 2024 01:00 PM AM[place] [place] [facility] Sep 05, 2024 10:00 AM [facility] Sep 12, 2024 10:00 AM [facility] [place] [facility] September 19, 2024 10:00 AM AM[place] [place] [facility] September 26, 2024 10:00 AM AM[place] [place] [facility] October 03, 2024 10:00 AM AM[place] [place] [facility] October 10, 2024 10:00 AM AM[place] [place] [facility] Oct 16, 2024 01:00 PM AMBULAT[facility] [place] [facility] Oct 24, 2024 10:00 AM AM[facility] [place] [facility] Oct 31, 2024 10:00 AM AM[place] [place] [facility] Nov 26, 2024 10:30 AM [facility] Nov 27, 2024 01:00 PM [facility] Social History: Smoking Status (Most current) [...] 02, 2023 11:00 AM VA-TOBACCO FORMER USER [facility] Tobacco Use History This section includes a history of the smoking, or tobacco-related health factors, that were collected on or before the date of the Encounter. The data comes from the [place] facility where the Encounter took place. Date/Time Smoking Status/Tobacco Use Comment F acility Jun 02, 2023 11:00 AM VA-TOBACCO QUIT 5 TO < 15 YRS [facility] May 21, 2022 10:30 AM VA-TOBACCO FORMER USER [facility] May 21, 2022 10:30 AM VA-TOBACCO QUIT 15 YRS OR MORE [facility] Nov 12, 2020 12:00 PM VA-TOBACCO FORMER USER [facility] Nov 12, 2020 12:00 PM VA-TOBACCO QUIT 5 TO < 15 YRS [facility] May 31, 2019 06:22 AM INPT NO TOBACCO USE IN LAST 30 D AYS [facility] Nov 08, 2017 01:55 PM VA-TOBACCO FORMER USER [facility] Nov 08, 2017 01:55 PM [place]-TOBACCO QUIT 1 TO < 5 YRS [facility] May 11, 2017 12:43 PM FORMER TOBACCO USE >1Y <7Y [facility] Aug 04, 2016 10:25 AM FORMER TOBACCO USE >1Y <7Y [facility] Aug 04, 2015 11:31 AM FORMER TOBACCO USE <1Y [facility] Aug 13, 2014 10:50 AM CURRENT TOBACCO USER [facility] October 10, 2013 09:12 AM FORMER TOBACCO USER 7Y OR GREATE R [facility] May 26, 2012 10:14 AM CURRENT TOBACCO USER [facility] Nov 19, 2009 12:07 PM CURRENT TOBACCO USER [facility] Advance Directives: All historical and current [...] Source Oct 31, 2023 ADVANCE DIRECTIVE CVIX,HERLINDA SANTANA OUD (DOM) Oct 17, 2023 ADVANCE DIRECTIVE DISCUSSION [facility] [facility] May 11, 2006 ADVANCE DIRECTIVE MEMOPETERPEDRO ARZATE [facility] Encounter Notes: All associated encounter notes This section contains the clinical notes associated to the Encounter. Date/Time Encounter Note(s) Provider Source Jul 25, 2024 10:00 AM MENTAL HEALTH GROU P COUNSELING NOTE: LOCAL TITLE: MH GROUP NOTE STANDARD TITLE: MENTAL HEALTH GROUP COUNSELING NOTE DATE OF NOTE: JUL 25, 2024@10:00 ENTRY DATE: JUL 25, 2024@10:59:59 AUTHOR: MUNA VINCENT COSIGNER: URGENCY: STATUS: COMPLETED Group Title: ADS Tuesday Aftercare Group Length: 90 minutes/Frequency: Once weekly [place] seen by [employer] Number of veterans in group: 8 Modality: Supportive therapy; CBT; Motivational Interviewing, Relational Veterinary Attendant(s): SERGE Terrell, DIRECTOR NICU Date of Attendance: July 25, 2024 via [email or web address] Conference call due to [id number]. agreed to meet by [email or web address] and is aware it is not secure. [...] combat Alcohol Use Disorder, Severe Depressive Disorder [place] reports sobriety. Veterans were fully informed on [...] teleconferencing (CVT) to home. Visit conducted via [employer] video conferencing platform during COVID-19 National Emergency in order to avoid delay in care as [place] Video Connect is not available for hybrid video/telephone groups. [place] has been informed of and verbally consented to confidentiality and its limits, including possible privacy risks using 3rd alliance party applications. [place] also advised that if they are not [...] coping skills, articulates josh /ubaldo/ SERGE RODRIGUEZ, [facility] CLINICAL QUARRY MANAGER Signed: 07/25/2024 12:01 MUNA VINCENT [facility]
--- OUTSIDE RECORDS SUMMARY | 2024-08-01 05:00 | XMS_ITS | Encounter Summary ---
Author Name [facility] [place] Address [address] [place] [address] Care Team Providers Care Wage And Hour Investigator Name Role Phone HA HENDERSON Primary Care [...] [facility] ([facility]) MEDIC[facility] ADVANTAGE MCR ([facility]) May 16, 2023 [id number] JEAN JAIN IN PATIENT [facility] (WNR) MEDICARE ADVANTAGE [facility] ([facility]) May 16, 2023 [id number] 17 JEAN JAIN IN PATIENT Selected Encounter This section includes the information on record at [place] for the Encounter. Date/Time Encounter Type Encounter Description Reason Provider Source Aug 01, 2024 10:00 AM GROUP PSYCHOTHERAPY [facility] ICD-10-CM F43.10 Post-traumatic stress disorder, unspecified MUNA VINCENT Encounter Template Text not used by [facility] Assessments - Encounter Diagnoses This section includes the primary and secondary diagnoses documented for the Encounter. Date/Time Primary/Secondary Diagnosis Diagnosis Name Provider Source Aug 01, 2024 11:59 AM PRIMARY Post-traumatic stress disorder, unspecified MUNA VINCENT [facility] Aug 01, 2024 11:59 AM SECONDARY Alcohol dependence, uncomplicated MUNA VINCENT [facility] Aug 01, 2024 11:59 AM SECONDARY Depression, unspecified MUNA VINCENT [facility] Plan of Treatment: Future Appointments (+ 6 months) and Future Tests (+/- 45 days) The Plan of Treatment section includes future care activities for the patient from all [place] [facility]. This section includes future appointments and future orders which are active, pending or scheduled. Future Appointments This section includes appointments that were scheduled to occur 6 months from the date of the Encounter, up to a maximum of 20 appointments. The data comes from all [facility]. Appointment Date/Time Appointment Type Appointme nt Facility Name Aug 08, 2024 10:00 AM [facility] Aug 14, 2024 07:15 AM AMBULATORY - NONE [facility] Aug 15, 2024 10:00 AM [place] [facility] Aug 29, 2024 10:00 AM [place] [facility] Sep 04, 2024 01:00 PM [place] [facility] Sep 05, 2024 10:00 AM [place] [facility] Sep 12, 2024 10:00 AM [facility] September 19, 2024 10:00 AM [facility] [place] [facility] September 26, 2024 10:00 AM [place] [facility] October 03, 2024 10:00 AM AM[place] [facility] October 10, 2024 10:00 AM AM[place] [facility] Oct 16, 2024 01:00 PM AM[place] [facility] Oct 24, 2024 10:00 AM AM[place] [facility] Oct 31, 2024 10:00 AM AMBUL[place] [facility] Nov 26, 2024 10:30 AM [facility] Nov 27, 2024 01:00 PM AMBULATORY - PS[facility]CHIATRY [place] [facility] Social History: Smoking Status (Most current) and [...] 02, 2023 11:00 AM VA-TOBACCO FORMER USER [facility] Tobacco Use History [...] Source Oct 31, 2023 ADVANCE DIRECTIVE CVIX,IMEDWEBUSER . CL OUD (DOM) Oct 17, 2023 ADVANCE DIRECTIVE DISCUSSION LUPEKARISSALAITH ZAINABPALOMO López [facility] May [birth year], 2006 ADVANCE DIRECTIVE PEDRO CAMACHO [facility] Encounter Notes: All associated encounter notes This section contains the clinical notes associated to the Encounter. Date/Time Encounter Note(s) Provider Source Aug 01, 2024 10:00 AM MENTAL HEALTH GROU P COUNSELING NOTE: LOCAL TITLE: MH GROUP NOTE STANDARD TITLE: MENTAL HEALTH GROUP COUNSELING NOTE DATE OF NOTE: AUG 01, 2024@10:00 ENTRY DATE: AUG 01, 2024@10:19:07 AUTHOR: MUNA VINCENT COSIGNER: URGENCY: STATUS: COMPLETED Group Title: ADS Tuesday Aftercare Group Length: 90 minutes/Frequency: Once weekly seen by WEBEX Number of veterans in group: 9 Modality: Supportive therapy; CBT; Motivational Interviewing, Relational Relations Manager(s): SERGE Terrell, MITZI Date of Attendance: August 01, 2024 via [employer] Conference call due to [id number]. [place] agreed to meet by [employer] and is aware it is not secure. [...] teleconferencing (CVT) to home. Visit conducted via Reasult video weezim.comencing platform during COVID-19 National Emergency in order to avoid delay in care as [place] Video Connect is not available for hybrid video/telephone groups. [place] has been informed of and verbally consented to confidentiality and its limits, including possible privacy risks using 3rd alliance party applications. [place] also advised that if they are [...] coping skills, articulates josh /ubaldo/ SERGE RODRIGUEZ, [place] [employer] CLINICAL BEEF GRADER Signed: 08/01/2024 12:00 MUNA VINCENT [facility]
--- OUTSIDE RECORDS SUMMARY | 2024-08-08 05:00 | XMS_ITS | Encounter Summary ---
Author Name [facility] [place] Address [address] [place] [address] Care Team Providers Care Amortization Clerk Name Role Phone HA HENDERSON Primary Care [...] Hurt's Name Patient's Relationship to Policy Hurt [facility] (R) MEDICARE ADVANTAGE MCR ([facility]) May 16, 2023 [id number] JEAN JAIN IN PATIENT [facility] (WNR) MEDICARE ADVANTAGE [facility] ([facility]) May 16, 2023 [id number] 17 JEAN JAIN IN PATIENT Selected Encounter This section includes the information on record at [place] for the Encounter. Date/Time Encounter Type Encounter Description Reason Provider Source Aug 08, 2024 10:00 AM GROUP PSYCHOTHERAPY [facility] ICD-10-CM F43.10 Post-traumatic stress disorder, unspecified MUNA VINCENT Encounter Template Text not used by VA Assessments - Encounter Diagnoses This section includes the primary and secondary diagnoses documented for the Encounter. Date/Time Primary/Secondary Diagnosis Diagnosis Name Provider Source Aug 08, 2024 11:42 AM PRIMARY Post-traumatic stress disorder, unspecified MUNA VINCENT [facility] Aug 08, 2024 11:42 AM SECONDARY Alcohol dependence, uncomplicated MUNA VINCENT [facility] Aug 08, 2024 11:42 AM SECONDARY Depression, unspecified MUNA VINCENT [facility] Plan of Treatment: Future Appointments (+ 6 months) and Future Tests (+/- 45 days) The Plan of Treatment section includes future care activities for the patient from all [place] [facility]. This section includes future appointments and future orders which are active, pending or scheduled. Future Appointments This section includes appointments that were scheduled to occur 6 months from the date of the Encounter, up to a maximum of 20 appointments. The data comes from all [facility]. Appointment Date/Time Appointment Type Appointme nt Facility Name Aug 14, 2024 07:15 AM [facility] Aug 15, 2024 10:00 AM AMBULATORY - PSYCHIATRY IN [facility] Aug 29, 2024 10:00 AM AMBULATORY - PSYCHIATRY IN [facility] Sep 04, 2024 01:00 PM [facility] Sep 05, 2024 10:00 AM [facility] Sep 12, 2024 10:00 AM [facility] September 19, 2024 10:00 [facility]24 10[facility]00 AM [facility] October 03, 2024 10:00 AM [facility] October 10, 2024 10:00 AM [facility] Oct 16, 2024 01:00 PM [facility] Oct 24, 2024 10:00 AM [facility] Oct 31, 2024 10:00 AM [facility] [place] [facility] [place] [facility] [facility] Nov 26, 2024 10:30 AM [facility] Nov 27, 2024 01:00 PM AMBULATORY - PSYCHIATRY IN [facility] Social History: Smoking Status (Most current) and Tobacco Use (All prior to encounter date) This section includes the most current, and the historical, smoking and tobacco- related health factors from the [place] facility where the Encounter took place. Current Smoking Status This section includes the most current smoking, or tobacco-related health factor, from the [place] facility where the Encounter took place. Date/Time Current Smoking Status Comment Facil ity Jun 02, 2023 11:00 AM VA-TOBACCO FORMER USER [facility] Tobacco Use History This section includes a history of the smoking, or tobacco-related health factors, that were collected on or before the date of the Encounter. The data comes from the [place] facility where the Encounter took place. Date/Time Smoking Status/Tobacco Use Comment F acility Jun 02, 2023 11:00 AM VA-TOBACCO QUIT 5 TO < 15 YRS [facility] May 21, 2022 10:30 AM VA-TOBACCO FORMER USER [facility] May 21, 2022 10:30 AM VA-TOBACCO QUIT 15 YRS OR MORE [facility] Nov 12, 2020 12:00 PM VA-TOBACCO FORMER USER [facility] Nov 12, 2020 12:00 PM VA-TOBACCO QUIT 5 TO < 15 YRS [facility] May 31, 2019 06:22 AM INPT NO TOBACCO USE IN LAST 30 D AYS [facility] Nov 08, 2017 01:55 PM VA-TOBACCO FORMER USER [facility] Nov 08, 2017 01:55 PM VA-TOBACCO QUIT 1 TO < 5 YRS [facility] May 11, 2017 12:43 PM FORMER TOBACCO USE >1Y <7Y [facility] Aug 04, 2016 10:25 AM FORMER TOBACCO USE >1Y <7Y [facility] Aug 04, 2015 11:31 AM FORMER TOBACCO USE <1Y [facility] Aug 13, 2014 10:50 AM CURRENT TOBACCO USER [facility] October 10, 2013 09:12 AM FORMER TOBACCO USER 7Y OR GREATE R [facility] May 26, 2012 10:14 AM CURRENT TOBACCO USER [facility] Nov 19, 2009 12:07 PM CURRENT TOBACCO USER [facility] Advance Directives: All historical and current Section Date Range: From patient's date of to the date document was created. This section includes ALL of a patient's completed or amended [place] Advance and Rescinded Directives. The entries below indicate that a directive exists for the patient, but an actual copy is not included with this document. The data comes from all [facility]. Date Advance Directives Provider Source Oct 31, 2023 ADVANCE DIRECTIVE HERLINDA SONG ([place]) Oct 17, 2023 ADVANCE DIRECTIVE DISCUSSION PALOMO MAN [facility] May 11, 2006 ADVANCE DIRECTIVE PEDRO CAMACHO [facility] Encounter Notes: All associated encounter notes This section contains the clinical notes associated to the Encounter. Date/Time Encounter Note(s) Provider Source Aug 08, 2024 10:00 AM MENTAL HEALTH GROU P COUNSELING NOTE: LOCAL TITLE: MH GROUP NOTE STANDARD TITLE: MENTAL HEALTH GROUP COUNSELING NOTE DATE OF NOTE: AUG 08, 2024@10:00 ENTRY DATE: AUG 08, 2024@10:08:42 AUTHOR: MUNA VINCENT COSIGNER: URGENCY: STATUS: COMPLETED Group Title: ADS Tuesday Aftercare Group Length: 90 minutes/Frequency: Once weekly seen by WEBEX Number of veterans in group: 9 Modality: Supportive therapy; CBT; Motivational Interviewing, Relational Superintendent Transmission(s): SERGE Terrell, MITZI Date of Attendance: August 08, 2024 via WEBCloudSlides Conference call due to [id number]. [place] agreed to meet by [employer] and is aware it is not [...] combat Alcohol Use Disorder, Severe Depressive Disorder [place] reports sobriety. Veterans were fully informed on [...] teleconferencing (CVT) to home. Visit conducted via ShowClix video Gamblinoencing platform during COVID-19 National Emergency in order to avoid delay in care as [place] [employer] is not available for hybrid video/telephone groups. [place] has been informed of and verbally consented [...] Protective Factors: Service Dog, family -sister in [place], sister in [place], brother [place], financially ok, [...] coping skills, articulates josh /ubaldo/ SERGE RODRIGUEZ, [facility] CLINICAL ANGLE SHEAR SET UP OPERATOR Signed: 08/08/2024 11:42 MUNA VINCENT [facility]
--- OUTSIDE RECORDS SUMMARY | 2024-08-15 05:00 | XMS_ITS | Encounter Summary ---
Author Name [place] Address [address] [facility], [place] [address] Care Team Providers Care Plate Shop Helper Name Role Phone HA HENDERSON Primary [...] Hurt's Name Patient's Relationship to Policy Hurt [facility] (WNR) MEDICARE ADVANTAGE [facility] ([facility]) May 16, 2023 [id number] JEAN JAIN IN PATIENT [facility] (WNR) MEDICARE ADVANTAGE [facility] (R) May 16, 2023 [id number] 17 JEAN JAIN IN PATIENT Selected Encounter This section includes the information on record at [place] for the Encounter. Date/Time Encounter Type Encounter Description Reason Pro vider Source Aug 15, 2024 10:00 AM [facility] En[facility] Template Text not used by [place] Plan of Treatment: Future Appointments (+ 6 [...] 20 appointments. The data comes from all [facility] facilities. Appointment Date/Time Appointment Type Appointme nt Facility Name Aug 29, 2024 10:00 AM [place] [facility] Sep 04, 2024 01:00 PM [place] [facility] Sep 05, 2024 10:00 AM [place] [facility] Sep 12, 2024 10:00 AM [place] [facility] September 19, 2024 10:00 AM AM[place] [facility] September 26, 2024 10:00 AM [place] [facility] October 03, 2024 10:00 AM [place] [facility] October 10, 2024 10:00 AM [place] [facility] Oct 16, 2024 01:00 PM [place] [facility] Oct 24, 2024 10:00 AM [place] [facility] Oct 31, 2024 10:00 AM [place] [facility] Nov 26, 2024 10:30 AM [facility] Nov 27, 2024 01:00 PM AMB[place] [facility] Social History: Smoking Status (Most current) and Tobacco Use (All prior to encounter date) This section includes the most current, and the historical, smoking and tobacco- related health factors from the [place] facility where the Encounter took place. Current Smoking Status This section includes the most current smoking, or tobacco-related health factor, from the [place] facility where the Encounter took place. Date/Time Current Smoking Status Comment Facil ity Jun 02, 2023 11:00 AM VA-TOBACCO FORMER USER [facility] Tobacco Use History This section includes a history of the smoking, or tobacco-related health factors, that were collected on or before the date of the Encounter. The data comes from the [place] facility where the Encounter took place. Date/Time Smoking Status/Tobacco Use Comment F acility Jun 02, 2023 11:00 AM VA-TOBACCO QUIT 5 TO < 15 YRS [facility] May 21, 2022 10:30 AM VA-TOBACCO FORMER USER [facility] May 21, 2022 10:30 AM VA-TOBACCO QUIT 15 YRS OR MORE [facility] Nov 12, 2020 12:00 PM VA-TOBACCO FORMER USER [facility] Nov 12, 2020 12:00 PM VA-TOBACCO QUIT 5 TO < 15 YRS [facility] May 31, 2019 06:22 AM INPT NO TOBACCO USE IN LAST 30 D AYS [facility] Nov 08, 2017 01:55 PM VA-TOBACCO FORMER USER [facility] Nov 08, 2017 01:55 PM VA-TOBACCO QUIT 1 TO < 5 YRS [facility] May 11, 2017 12:43 PM FORMER TOBACCO USE >1Y <7Y [facility] Aug 04, 2016 10:25 AM FORMER TOBACCO USE >1Y <7Y [facility] Aug 04, 2015 11:31 AM FORMER TOBACCO USE <1Y [facility] Aug 13, 2014 10:50 AM CURRENT TOBACCO USER [facility] October 10, 2013 09:12 AM FORMER TOBACCO USER 7Y OR GREATE R [facility] May 26, 2012 10:14 AM CURRENT TOBACCO USER [facility] Nov 19, 2009 12:07 PM CURRENT TOBACCO USER [facility] Advance Directives: All historical and current Section Date Range: From patient's date of to the date document was created. This section includes ALL of a patient's completed or amended [place] Advance and Rescinded Directives. The entries below indicate that a directive exists for the patient, but an actual copy is not included with this document. The data comes from all [facility]. Date Advance Directives Provider Source Oct 31, 2023 ADVANCE DIRECTIVE CVIX,HERLINDA VIRK. GAYLE OUD (DOM) Oct 17, 2023 ADVANCE DIRECTIVE DISCUSSION PALOMO MAN [facility] May [birth year], 2005 ADVANCE DIRECTIVE PEDRO CAMACHO [facility] Encounter Notes: All associated encounter notes This section contains the clinical notes associated to the Encounter. Date/Time Encounter Note(s) Provider Source Aug 15, 2024 10:00 AM NO SHOW NOTE: LOCAL TITLE: NO SHOW NOTE STANDARD TITLE: NO SHOW NOTE DATE OF NOTE: AUG 15, 2024@10:00 ENTRY DATE: AUG 15, 2024@10:06:11 AUTHOR: MUNA VINCENT EXP COSIGNER: URGENCY: STATUS: COMPLETED Patient did not appear for scheduled appointment. Risk Assessment: Protective Factors: Service Dog, family [...] factors, coping skills, articulates reason for living) Plan Based on Clinician Judgment of Risk: I attempted to contact vet t the number listed in CPRS. I left a voicemail message for him to call me. Is the identified with a high risk for suicide flag? No /es/ SERGE RODRIGUEZ, [facility] CLINICAL PILLING MACHINE OPERATOR Signed: 08/15/2024 12:27 MUNA VINCENT [facility]
--- OUTSIDE RECORDS SUMMARY | 2024-08-22 05:00 | XMS_ITS | Encounter Summary ---
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 Date/Time Encounter Type Encounter Description Reason Pro vider Source Aug 22, 2024 10:00 AM Outpatient En[facility] Encounter Template Text not used by ID Plan of Treatment: Future Appointments (+ 6 [...] 20 appointments. The data comes from all [facility] facilities. Appointment Date/Time Appointment Type Appointme nt Facility Name Aug 29, 2024 10:00 AM AM[place]ORY [place] [facility] Sep 04, 2024 01:00 PM [place] [facility] Sep 05, 2024 10:00 AM [place] [facility] Sep 12, 2024 10:00 AM [place] [facility] September 19, 2024 10:00 AM [place] [facility] September 26, 2024 10:00 AM [place] [facility] October 03, 2024 10:00 AM [place] [facility] October 10, 2024 10:00 AM [place] [facility] Oct 16, 2024 01:00 PM [place] [facility] Oct 24, 2024 10:00 AM [place] [facility] Oct 31, 2024 10:00 AM [place] [facility] Nov 26, 2024 10:30 AM [facility] Nov 27, 2024 01:00 PM [place]ORY [place] [facility] Social History: Smoking Status (Most current) and Tobacco Use (All prior to encounter date) This section includes the most current, and the historical, smoking and tobacco- related health factors from the ID facility where the Encounter took place. Current Smoking Status This section includes the most current smoking, or tobacco-related health factor, from the ID facility where the Encounter took place. Date/Time Current Smoking Status Comment Facil ity Jun 02, 2023 11:00 AM VA-TOBACCO FORMER USER [facility] Tobacco Use History This section includes a history of the smoking, or tobacco-related health factors, that were collected on or before the date of the Encounter. The data comes from the ID facility where the Encounter took place. Date/Time Smoking Status/Tobacco Use Comment F acility Jun 02, 2023 11:00 AM VA-TOBACCO QUIT 5 TO < 15 YRS [facility] May 21, 2022 10:30 AM VA-TOBACCO FORMER USER [facility] May 21, 2022 10:30 AM VA-TOBACCO QUIT 15 YRS OR MORE [facility] Nov 12, 2020 12:00 PM VA-TOBACCO FORMER USER [facility] Nov 12, 2020 12:00 PM VA-TOBACCO QUIT 5 TO < 15 YRS [facility] May 31, 2019 06:22 AM INPT NO TOBACCO USE IN LAST 30 D AYS [facility] Nov 08, 2017 01:55 PM VA-TOBACCO FORMER USER [facility] Nov 08, 2017 01:55 PM VA-TOBACCO QUIT 1 TO < 5 YRS [facility] May 11, 2017 12:43 PM FORMER TOBACCO USE >1Y <7Y [facility] Aug 04, 2016 10:25 AM FORMER TOBACCO USE >1Y <7Y [facility] Aug 04, 2015 11:31 AM FORMER TOBACCO USE <1Y [facility] Aug 13, 2014 10:50 AM CURRENT TOBACCO USER [facility] October 10, 2013 09:12 AM FORMER TOBACCO USER 7Y OR GREATE R [facility] May 26, 2012 10:14 AM CURRENT TOBACCO USER [facility] Nov 19, 2009 12:07 PM CURRENT TOBACCO USER [facility] Advance Directives: All historical and current Section Date Range: From patient's date of to the date document was created. This section includes ALL of a patient's completed or amended [place] Advance and Rescinded Directives. The entries below indicate that a directive exists for the patient, but an actual copy is not included with this document. The data comes from all [facility]. Date Advance Directives Provider Source Oct 31, 2023 ADVANCE DIRECTIVE CVELIZABETH,HERLINDA VIRK. [facility] ([place]) Oct 17, 2023 ADVANCE DIRECTIVE DISCUSSION [place] MAN [facility] May 11, 2006 ADVANCE DIRECTIVE PEDRO CAMACHO [facility] Encounter Notes: All associated encounter notes This section contains the clinical notes associated to the Encounter. Date/Time Encounter Note(s) Provider Source Aug 22, 2024 10:00 AM NO SHOW NOTE: LOCAL TITLE: NO SHOW/CANCELLATION CLINIC NOTE STANDARD TITLE: NO SHOW NOTE DATE OF NOTE: AUG 22, 2024@10:00 ENTRY DATE: AUG 22, 2024@10:17:36 AUTHOR: MUNA VINCENT COSIGNER: URGENCY: STATUS: COMPLETED not seen for scheduled appointment due to: Other I contacted the as he has missed his second group. He said was is the hospital in [place] until last night. He has had problems with low blood pressure. He said he gets dizzy when he stands up. He hopes to be back in group next week. Appointment Rescheduled: Please review patient chart and medications for renewal needs (if appropriate). /ubaldo/ SERGE RODRIGUEZ, CABLE OPERATOR CLINICAL SOFTWARE ASSET MANAGER Signed: 08/22/2024 15:18 MUNA VINCENT [facility]
--- OUTSIDE RECORDS SUMMARY | 2024-08-29 05:00 | XMS_ITS | Encounter Summary ---
Author Name [place] Address [address] [place] [address] Care Team Providers Care Import Specialist Name Role Phone HA HENDERSON Primary [...] Hurt's Name Patient's Relationship to Policy Hurt [facility] (R) MEDICARE ADVANTAGE MCR ([facility] May 16, 2023 [id number] JEAN JAIN IN PATIENT [facility] (WNR) MEDICARE ADVANTAGE [facility] ([facility] May 16, 2023 [id number] 17 JEAN JAIN IN PATIENT Selected Encounter This section includes the information on record at [place] for the Encounter. Date/Time Encounter Type Encounter Description Reason Provider Source Aug 29, 2024 10:00 AM GROUP PSYCHOTHERAPY [facility] ICD-10-CM F43.10 Post-traumatic stress disorder, unspecified MUNA VINCENT Encounter Template Text not used by VA Assessments - Encounter Diagnoses This section includes the primary and secondary diagnoses documented for the Encounter. Date/Time Primary/Secondary Diagnosis Diagnosis Name Provider Source Aug 29, 2024 12:07 PM PRIMARY Post-traumatic stress disorder, unspecified MUNA VINCENT [facility] Aug 29, 2024 12:07 PM SECONDARY Alcohol dependence, uncomplicated [facility] Aug 29, 2024 12:07 PM SECONDARY Depression, unspecified [facility] Plan of Treatment: Future Appointments (+ 6 months) and Future Tests (+/- 45 days) The Plan of Treatment section includes future care activities for the patient from all [place] [facility]. This section includes future appointments and future orders which are active, pending or scheduled. Future Appointments This section includes appointments that were scheduled to occur 6 months from the date of the Encounter, up to a maximum of 20 appointments. The data comes from all [facility]. Appointment Date/Time Appointment Type Appointme nt Facility Name Sep 04, 2024 01:00 PM AM[place]ULATORY [place] [facility] Sep 05, 2024 10:00 AM AMB[facility] Sep 12, 2024 10:00 AM AMBULATORY [facility]RY [facility] September 19, 2024 10:00 AM AMBULAT[facility]RY [facility] September 26, 2024 10:00 AM AMBULATORY [facility]RY [facility] October 03, 2024 10:00 AM AMBULATORY [facility]RY [facility] October 10, 2024 10:00 AM AMBULATORY [facility]ATRY [facility] Oct 16, 2024 01:00 PM AMBULATORY [facility]IATRY [facility] Oct 24, 2024 10:00 AM AMBULATORY [facility]ATRY [facility] Oct 31, 2024 10:00 AM AMBULATORY - [facility]CHIATRY [facility] Nov 26, 2024 10:30 AM AMBULATORY - MEDICINE [facility] Nov 27, 2024 01:00 PM AMBULATORY - PS[facility]CHIATRY [place] [facility] Social History: Smoking Status [...] 02, 2023 11:00 AM VA-TOBACCO FORMER USER [facility] Tobacco Use History This section includes a history of the smoking, or tobacco-related health factors, that were collected on or before the date of the Encounter. The data comes from the [place] facility where the Encounter took place. Date/Time Smoking Status/Tobacco Use Comment F acility Jun 02, 2023 11:00 AM VA-TOBACCO QUIT 5 TO < 15 YRS [facility] May 21, 2022 10:30 AM VA-TOBACCO FORMER USER [facility] May 21, 2022 10:30 AM VA-TOBACCO QUIT 15 YRS OR MORE [facility] Nov 12, 2020 12:00 PM VA-TOBACCO FORMER USER [facility] Nov 12, 2020 12:00 PM VA-TOBACCO QUIT 5 TO < 15 YRS [facility] May 31, 2019 06:22 AM INPT NO TOBACCO USE IN LAST 30 D AYS [facility] Nov 08, 2017 01:55 PM VA-TOBACCO FORMER USER [facility] Nov 08, 2017 01:55 PM [place]-TOBACCO QUIT 1 TO < 5 YRS [facility] May 11, 2017 12:43 PM FORMER TOBACCO USE >1Y <7Y [facility] Aug 04, 2016 10:25 AM FORMER TOBACCO USE >1Y <7Y [facility] Aug 04, 2015 11:31 AM FORMER TOBACCO USE <1Y [facility] Aug 13, 2014 10:50 AM CURRENT TOBACCO USER [facility] October 10, 2013 09:12 AM FORMER TOBACCO USER 7Y OR GREATE R [facility] May 26, 2012 10:14 AM CURRENT TOBACCO USER [facility] Nov 19, 2009 12:07 PM CURRENT TOBACCO USER [facility] Advance Directives: All historical and current [...] 17, 2023 ADVANCE DIRECTIVE DISCUSSION [place] MAN [facility] May 11, 2006 ADVANCE DIRECTIVE PEDRO CAMACHO [facility] Encounter Notes: All associated encounter notes This section contains the clinical notes associated to the Encounter. Date/Time Encounter Note(s) Provider Source Aug 29, 2024 10:00 AM MENTAL HEALTH GROU P COUNSELING NOTE: LOCAL TITLE: MH GROUP NOTE STANDARD TITLE: MENTAL HEALTH GROUP COUNSELING NOTE DATE OF NOTE: AUG 29, 2024@10:00 ENTRY DATE: AUG 29, 2024@10:12:47 AUTHOR: MUNA VINCENT COSIGNER: URGENCY: STATUS: COMPLETED Group Title: ADS Tuesday Aftercare Group Length: 90 minutes/Frequency: Once weekly [place] seen by [employer] Number of veterans in group: 11 Modality: Supportive therapy; CBT; Motivational Interviewing, Relational Edge Beader(s): SERGE Terrell, MITZI Date of Attendance: August 29, 2024 via [employer] Conference call due to [id number]. agreed to meet by [employer] and is aware it is not secure. [...] combat Alcohol Use Disorder, Severe Depressive Disorder [place] reports sobriety. Veterans were fully informed on [...] teleconferencing (CVT) to home. Visit conducted via Antengo video Proteus Agilityencing platform during COVID-19 National Emergency in order to avoid delay in care as [place] [employer] [facility] is not available for hybrid video/telephone groups. [place] has been informed of and verbally consented [...] coping skills, articulates josh /ubaldo/ SERGE RODRIGUEZ, [facility] CLINICAL FOOTWEAR SALES COORDINATOR Signed: 08/29/2024 12:07 MUNA VINCENT [facility]
--- OUTSIDE RECORDS SUMMARY | 2024-09-05 05:00 | XMS_ITS | Encounter Summary ---
Author Name Department of [place] Organization [place] Address [address] [place] [address] Care Team Providers Care General Production Laborer Name Role Phone HA HENDERSON Primary Care [...] Hurt's Name Patient's Relationship to Policy Hurt [facility] (R) MEDICARE ADVANTAGE MCR ([facility]) May 16, 2023 [id number] JEAN JAIN IN PATIENT [facility] (WNR) MEDICARE ADVANTAGE [facility] ([facility]) May 16, 2023 [id number] 17 JEAN JAIN IN PATIENT Selected Encounter This section includes the information on record at [place] for the Encounter. Date/Time Encounter Type Encounter Description Reason Provider Source Sep 05, 2024 10:00 AM GROUP PSYCHOTHERAPY [facility] ICD-10-CM F43.10 Post-traumatic stress disorder, unspecified MUNA VINCENT Encounter Template Text not used by VA Assessments - Encounter Diagnoses This section includes the primary and secondary diagnoses documented for the Encounter. Date/Time Primary/Secondary Diagnosis Diagnosis Name Provider Source Sep 05, 2024 12:00 PM PRIMARY Post-traumatic stress disorder, unspecified MUNA VINCENT [facility] Sep 05, 2024 12:00 PM SECONDARY Alcohol dependence, uncomplicated MUNA VINCENT [facility] Sep 05, 2024 12:00 PM SECONDARY Depression, unspecified [facility] Plan of Treatment: Future Appointments (+ 6 months) and Future Tests (+/- 45 days) The Plan of Treatment section includes future care activities for the patient from all [place] [facility]. This section includes future appointments and future orders which are active, pending or scheduled. Future Appointments This section includes appointments that were scheduled to occur 6 months from the date of the Encounter, up to a maximum of 20 appointments. The data comes from all [facility]. Appointment Date/Time Appointment Type Appointme nt Facility Name Sep 12, 2024 10:00 AM AM[place]RY [place] [facility] September 19, 2024 10:00 AM AMBULATORY [place]ATRY [place] [facility] September 26, 2024 10:00 AM AMBULATORY [place]ATRY [place] [facility] October 03, 2024 10:00 AM AMBULATORY [place]ATRY [place] [facility] October 10, 2024 10:00 AM AMBULATORY [place]RY [place] [facility] Oct 16, 2024 01:00 PM AMBULATORY [place]IATRY [facility] Oct 24, 2024 10:00 AM AMBULATORY [place]ATRY [place] [facility] Oct 31, 2024 10:00 AM AMBULATORY [place]IATRY [facility] Nov 26, 2024 10:30 AM AMBULATORY - MEDICINE [facility] Nov 27, 2024 01:00 PM AMBULATORY - PSYCHIATRY [facility] Social History: Smoking Status (Most [...] comes from all [facility]. Date Advance Directives Provider Source Oct 31, 2023 ADVANCE DIRECTIVE CVIX,YADYEDCHARISER [facility] ([place]) Oct 17, 2023 ADVANCE DIRECTIVE DISCUSSION [place] MAN [facility] May 11, 2006 ADVANCE DIRECTIVE PEDRO CAMACHO [facility] Encounter Notes: All associated encounter notes This section contains the clinical notes associated to the Encounter. Date/Time Encounter Note(s) Provider Source Sep 05, 2024 10:00 AM MENTAL HEALTH GROU P COUNSELING NOTE: LOCAL TITLE: MH GROUP NOTE STANDARD TITLE: MENTAL HEALTH GROUP COUNSELING NOTE DATE OF NOTE: SEP 05, 2024@10:00 ENTRY DATE: SEP 05, 2024@10:13:25 AUTHOR: MUNA VINCENT COSIGNER: URGENCY: STATUS: COMPLETED Group Title: ADS Tuesday Aftercare Group Length: 90 minutes/Frequency: Once weekly [place] seen by [employer] Number of veterans in group: 10 Modality: Supportive therapy; CBT; Motivational Interviewing, Relational Land Classifier(s): SERGE Terrell, MITZI Date of Attendance: September 05, 2024 via [employer] Conference call due to [id number]. agreed to meet by WE[employer] and is [...] Alcohol Use Disorder, Severe Depressive Disorder [place] reports sobriety. Veterans were fully informed on [...] teleconferencing (CVT) to home. Visit conducted via [employer] video conferencing platform during COVID-19 National Emergency in order to avoid delay in care as [place] [employer] [facility] is not available for hybrid video/telephone groups. has been informed of and verbally consented to confidentiality and its limits, including possible privacy risks using 3rd libertarian applications. [place] also advised that if they are not [...] coping skills, articulates josh /ubaldo/ SERGE RODRIGUEZ, [facility] CLINICAL INDUSTRIAL SAFETY ENGINEER Signed: 09/05/2024 12:[address] [facility]
--- OUTSIDE RECORDS SUMMARY | 2024-09-12 05:00 | XMS_ITS | Encounter Summary ---
Author Name Department [place] Organization [place] Address [address] [place] [address] Care Team Providers Care Machine Clipper Name Role Phone HA HENDERSON Primary Care [...] Hurt's Name Patient's Relationship to Policy Hurt [facility] (R) MEDICARE ADVANTAGE MCR ([facility]) May 16, 2023 [id number] JEAN JAIN IN PATIENT [facility] (WNR) MEDICARE ADVANTAGE [facility] ([facility]) May 16, 2023 [id number] 17 JEAN JAIN IN PATIENT Selected Encounter This section includes the information on record at [place] for the Encounter. Date/Time Encounter Type Encounter Description Reason Provider Source Sep 12, 2024 10:00 AM GROUP PSYCHOTHERAPY [facility] ICD-10-CM F43.12 Post-traumati c stress disorder, chronic VINCENT,MUNA R IHE Encounter Template Text not used by VA Assessments - Encounter Diagnoses This section includes the primary and secondary diagnoses documented for the Encounter. Date/Time Primary/Secondary Diagnosis Diagnosis Name Provider Source Sep 12, 2024 01:23 PM PRIMARY Post-traumatic stress disorder, chronic MUNA VINCENT [facility] Sep 12, 2024 01:23 PM SECONDARY Alcohol dependence, uncomplicated MUNA VINCENT [facility] Sep 12, 2024 01:23 PM SECONDARY Depression, unspecified [facility] Plan of Treatment: Future Appointments (+ 6 months) and Future Tests (+/- 45 days) The Plan of Treatment section includes future care activities for the patient from all [place] [facility]. This section includes future appointments and future orders which are active, pending or scheduled. Future Appointments This section includes appointments that were scheduled to occur 6 months from the date of the Encounter, up to a maximum of 20 appointments. The data comes from all [facility]. Appointment Date/Time Appointment Type Appointme nt Facility Name September 19, 2024 10:00 AM AMBULATORY - PSYCHIATRY [facility] September 26, 2024 10:00 AM AMBULATORY - PSYCHIATRY [facility] October 03, 2024 10:00 AM AMBULATORY - PSYCHIATRY [facility] October 10, 2024 10:00 AM AMBULATORY - PSYCHIATRY [facility] Oct 16, 2024 01:00 PM AMBULATORY [facility]RY [facility] Oct 24, 2024 10:00 AM AMBULATORY [facility]IATRY [facility] Oct 31, 2024 10:00 AM AMBULATORY - PSYCHIATRY [facility] Nov 26, 2024 10:30 AM AMBULATORY - MEDICINE [facility] Nov 27, 2024 01:00 PM AMBULATORY - PSYCHIATRY [facility] Social History: Smoking Status (Most current) and Tobacco Use (All prior to encounter date) This section includes the most current, and the historical, smoking and tobacco- related health factors from the [place] facility where the Encounter took place. Current Smoking Status This section includes the most current smoking, or tobacco-related health factor, from the [place] facility where the Encounter took place. Date/Time Current Smoking Status Comment Nigel terrazas Jun 02, 2023 11:00 AM VA-TOBACCO QUIT 5 TO < [address] [facility] Tobacco Use History This section includes a history of the smoking, or tobacco-related health factors, that were collected on or before the date of the Encounter. The data comes from the [place] facility where the Encounter took place. Date/Time Smoking Status/Tobacco Use Comment Ramses baldwin Jun 02, 2023 11:00 AM VA-TOBACCO QUIT 5 TO < [address] [facility] May 21, 2022 10:30 AM VA-TOBACCO FORMER USER [facility] May 21, 2022 10:30 AM VA-TOBACCO QUIT [address] [facility] Nov 12, 2020 12:00 PM VA-TOBACCO FORMER USER [facility] Nov 12, 2020 12:00 PM VA-TOBACCO QUIT 5 TO < [address] [facility] May 31, 2019 06:22 AM INPT NO TOBACCO USE IN LAST [address] [facility] Nov 08, 2017 01:55 PM VA-TOBACCO FORMER USER [facility] Nov 08, 2017 01:55 PM VA-TOBACCO QUIT 1 TO < [address] [facility] May 11, 2017 12:43 PM FORMER TOBACCO USE >1Y <7Y [facility] Aug 04, 2016 10:25 AM FORMER TOBACCO USE >1Y <7Y [facility] Aug 04, 2015 11:31 AM FORMER TOBACCO USE <1Y [facility] Aug 13, 2014 10:50 AM CURRENT TOBACCO USER [facility] October 10, 2013 09:12 AM FORMER TOBACCO USER 7Y OR GREATE R [facility] May 26, 2012 10:14 AM CURRENT TOBACCO USER [facility] Nov 19, 2009 12:07 [address]BACCO USER [facility] Advance Directives: All historical and current Section Date Range: From patient's date of to the date document was created. This section includes ALL of a patient's completed or amended [place] Advance and Rescinded Directives. The entries below indicate that a directive exists for the patient, but an actual copy is not included with this document. The data comes from all [place] facilities. Date Advance Directives Provider Source Oct 31, 2023 ADVANCE DIRECTIVE CVELIZABETH,IMEDMOOKBUSER ST. [facility] ([place]) Oct 17, 2023 ADVANCE DIRECTIVE DISCUSSION [facility] 2006 ADVANCE DIRECTIVE PEDRO CAMACHO [facility] Encounter Notes: All associated encounter notes This section contains the clinical notes associated to the Encounter. Date/Time Encounter Note(s) Provider Source Sep 12, 2024 10:00 AM MENTAL HEALTH GROU P COUNSELING NOTE: LOCAL TITLE: MH GROUP NOTE STANDARD TITLE: MENTAL HEALTH GROUP COUNSELING NOTE DATE OF NOTE: SEP 12, 2024@10:00 ENTRY DATE: SEP 12, 2024@10:09:12 AUTHOR: MUNA VINCENT EXP COSIGNER: URGENCY: STATUS: COMPLETED Group Title: ADS Tuesday Aftercare Group Length: 90 minutes/Frequency: Once weekly [place] seen by [employer] Number of veterans in group: 9 Modality: Supportive therapy; CBT; Motivational Interviewing, Relational Community Service Director(s): SERGE Terrell, MITZI Date of Attendance: September 12, 2024 via WEB[employer] Conference call due to [id number]. [place] agreed to meet by WEB[employer] and is [...] combat Alcohol Use Disorder, Severe Depressive Disorder [place] reports sobriety. Veterans were fully informed on [...] teleconferencing (CVT) to home. Visit conducted via [employer] video conferencing platform during COVID-19 National Emergency in order to avoid delay in care as [place] [employer] is not available for hybrid video/telephone [...] Protective Factors: Service Dog, family -sister in [place], sister in [place], brother [place], financially ok, [...] coping skills, articulates josh /ubaldo/ SERGE RODRIGUEZ, [facility] CLINICAL STORE RECEIVING CLERK Signed: 09/12/2024 13:[address] [facility]
--- OUTSIDE RECORDS SUMMARY | 2024-09-19 05:00 | XMS_ITS | Encounter Summary ---
Author Name [facility] [place] [facility] [place] Address [address] [place] [address] Care Team Providers Care Legal Summer Intern Name Role Phone HA HENDERSON Primary [...] Hurt's Name Patient's Relationship to Policy Hurt [facility] (R) MEDICARE ADVANTAGE MCR ([facility]) May 16, 2023 [id number] JEAN JAIN IN PATIENT [facility] (WNR) MEDICARE ADVANTAGE [facility] ([facility]) May 16, 2023 [id number] 17 JEAN JAIN IN PATIENT Selected Encounter This section includes the information on record at [place] for the Encounter. Date/Time Encounter Type Encounter Description Reason Provider Source September 19, 2024 10:00 AM GROUP PSYCHOTHERAPY [facility] ICD-10-CM F43.12 Post-traumati c stress disorder, chronic VINCENT,MUNA R IHE Encounter Template Text not used by VA Assessments - Encounter Diagnoses This section includes the primary and secondary diagnoses documented for the Encounter. Date/Time Primary/Secondary Diagnosis Diagnosis Name Provider Source September 19, 2024 11:56 AM PRIMARY Post-traumatic stress disorder, chronic MUNA VINCENT [facility] September 19, 2024 11:56 AM SECONDARY Alcohol dependence, uncomplicated MUNA VINCENT [facility] September 19, 2024 11:56 AM SECONDARY Depression, unspecified [facility] Plan of Treatment: Future Appointments (+ 6 months) and Future Tests (+/- 45 days) The Plan of Treatment section includes future care activities for the patient from all [place] [facility]. This section includes future appointments and future orders which are active, pending or scheduled. Future Appointments This section includes appointments that were scheduled to occur 6 months from the date of the Encounter, up to a maximum of 20 appointments. The data comes from all [facility]. Appointment Date/Time Appointment Type Appointme nt Facility Name September 26, 2024 10:00 AM AMBULATORY - PSYCHIATRY [facility] October 03, 2024 10:00 AM AMBULATORY - PSYCHIATRY [facility] October 10, 2024 10:00 AM AMBULATORY - PSYCHIATRY [facility] Oct 16, 2024 01:00 PM AMBULATORY - PSYCHIATRY [facility] Oct 24, 2024 10:00 AM AMBULATORY - [facility] Oct 31, 2024 10:00 AM AMBULATORY - PSYCHIATRY [facility] Nov 26, 2024 10:30 AM AMBULATORY - MEDICINE [facility] Nov 27, 2024 01:00 PM AMBULATORY - PSYCHIATRY [facility] Social History: Smoking Status (Most current) [...] F acility Jun 02, 2023 11:00 AM [place]-TOBACCO QUIT 5 TO < 15 YRS PERHAM [...] this document. The data comes from all [place] facilities. Date Advance Directives Provider Source Oct 31, 2023 ADVANCE DIRECTIVE HERLINDA SONG. [facility]UD (DOM) Oct 17, 2023 ADVANCE DIRECTIVE DISCUSSION [facility] May 11, 2006 ADVANCE DIRECTIVE PEDRO CAMACHO [facility] Encounter Notes: All associated encounter notes This section contains the clinical notes associated to the Encounter. Date/Time Encounter Note(s) Provider Source September 19, 2024 10:00 AM MENTAL HEALTH GROU P COUNSELING NOTE: LOCAL TITLE: MH GROUP NOTE STANDARD TITLE: MENTAL HEALTH GROUP COUNSELING NOTE DATE OF NOTE: SEPTEMBER 19, 2024@10:00 ENTRY DATE: SEPTEMBER 19, 2024@10:14:04 AUTHOR: VINCENT,MUNA R EXP COSIGNER: URGENCY: STATUS: COMPLETED Group Title: ADS Tuesday Aftercare Group Length: 90 minutes/Frequency: Once weekly seen by WEBEX Number of veterans in group: 9 Modality: Supportive therapy; CBT; Motivational Interviewing, Relational Wax Blender(s): SERGE Terrell LICSW Date of Attendance: September 19, 2024 via WEBEX Conference call due to [id number]. agreed to meet by WEBEX and is [...] teleconferencing (CVT) to home. Visit conducted via Cosm[employer] video conferencing platform during COVID-19 National Emergency [...] coping skills, articulates josh /ubaldo/ SERGE RODRIGUEZ, [facility] CLINICAL SPECIAL EDUCATION ASSOCIATE Signed: 09/19/2024 11:57 MUNA VINCENT [facility]
--- OUTSIDE RECORDS SUMMARY | 2024-09-26 05:00 | XMS_ITS | Encounter Summary ---
Author Name [facility] [place] Organization [facility] [place] Address [address] [place] [address] Care Team Providers Care Check Out Cashier Name Role Phone HA HENDERSON Primary Care [...] Hurt's Name Patient's Relationship to Policy Hurt [facility] (R) MEDICARE ADVANTAGE MCR ([facility]) May 16, 2023 [id number] JEAN JAIN IN PATIENT [facility] (WNR) MEDICARE ADVANTAGE [facility] ([facility]) May 16, 2023 [id number] JEAN JAIN IN PATIENT Selected Encounter This section includes the information on record at [place] for the Encounter. Date/Time Encounter Type Encounter Description Reason Provider Source September 26, 2024 10:00 AM GROUP PSYCHOTHERAPY [facility] ICD-10-CM F43.10 Post-traumatic stress disorder, unspecified MUNA VINCENT Encounter Template Text not used by VA Assessments - Encounter Diagnoses This section includes the primary and secondary diagnoses documented for the Encounter. Date/Time Primary/Secondary Diagnosis Diagnosis Name Provider Source September 26, 2024 11:54 AM PRIMARY Post-traumatic stress disorder, unspecified MUNA VINCENT [facility] September 26, 2024 11:54 AM SECONDARY Alcohol dependence, uncomplicated MUNA VINCENT [facility] September 26, 2024 11:54 AM SECONDARY Depression, unspecified [facility] Plan of Treatment: Future Appointments (+ 6 months) and Future Tests (+/- 45 days) The Plan of Treatment section includes future care activities for the patient from all [place] [facility]. This section includes future appointments and future orders which are active, pending or scheduled. Future Appointments This section includes appointments that were scheduled to occur 6 months from the date of the Encounter, up to a maximum of 20 appointments. The data comes from all [facility]. Appointment Date/Time Appointment Type Appointme nt Facility Name October 03, 2024 10:00 AM AMBULATORY - PSYCHIATRY [facility] October 10, 2024 10:00 AM AMBULATORY - PSYCHIATRY [facility] Oct 16, 2024 01:00 PM AMBULATORY - PSYCHIATRY [facility] Oct 24, 2024 10:00 AM AMBULATORY - PSYCHIATRY [facility] Oct 31, 2024 10:00 AM [facility] Nov 26, 2024 10:30 AM AMBULATORY - MEDICINE [facility] Nov 27, 2024 01:00 PM AMBULATORY - PSYCHIATRY [facility] Social History: Smoking Status (Most [...] F acility Jun 02, 2023 11:00 AM [place]-TOBACCO QUIT 5 TO < 15 YRS [facility] [...] 2006 ADVANCE DIRECTIVE PEDRO CAMACHO [facility] Encounter Notes: All associated encounter notes This section contains the clinical notes associated to the Encounter. Date/Time Encounter Note(s) Provider Source September 26, 2024 10:00 AM MENTAL HEALTH GROU P COUNSELING NOTE: LOCAL TITLE: MH GROUP NOTE STANDARD TITLE: MENTAL HEALTH GROUP COUNSELING NOTE DATE OF NOTE: SEPTEMBER 26, 2024@10:00 ENTRY DATE: SEPTEMBER 26, 2024@10:07:23 AUTHOR: MUNA VINCENT COSIGNER: URGENCY: STATUS: COMPLETED Group Title: ADS Tuesday Aftercare Group Length: 90 minutes/Frequency: Once weekly [place] seen by WEBEX Number of veterans in group: 11 Modality: Supportive therapy; CBT; Motivational Interviewing, Relational Test Grader(s): SERGE Terrell LICSW Date of Attendance: September 26, 2024 via WEBEX Conference call. agreed to meet by WEBEX and is [...] combat Alcohol Use Disorder, Severe Depressive Disorder [place] reports sobriety. Veterans were fully informed on [...] teleconferencing (CVT) to home. Visit conducted via [employer] video conferencing platform during COVID-19 National Emergency [...] coping skills, articulates josh /ubaldo/ SERGE RODRIGUEZ, [facility] CLINICAL PACS SPECIALIST Signed: 09/26/2024 11:55 MUNA VINCENT [facility]
--- OUTSIDE RECORDS SUMMARY | 2024-10-03 05:00 | XMS_ITS | Encounter Summary ---
Author Name [facility] [place] Address [address] [place] [address] Care Team Providers Care Precinct Police Lieutenant Name Role Phone HA HENDERSON Primary Care [...] Member ID Insurance Provider's Telephone Number Policy Hutr's Name Patient's Relationship to Policy Hurt [facility] (R) MEDICARE ADVANTAGE MCR ([facility]) May 16, 2023 [id number] JEAN JAIN IN PATIENT [facility] (WNR) MEDICARE ADVANTAGE [facility] ([facility]) May 16, 2023 [id number] 17 JEAN JAIN IN PATIENT Selected Encounter This section includes the information on record at [place] for the Encounter. Date/Time Encounter Type Encounter Description Reason Provider Source October 03, 2024 10:00 AM GROUP PSYCHOTHERAPY [facility] ICD-10-CM F43.10 Post-traumatic stress disorder, unspecified MUNA VINCENT Encounter Template Text not used by VA Assessments - Encounter Diagnoses This section includes the primary and secondary diagnoses documented for the Encounter. Date/Time Primary/Secondary Diagnosis Diagnosis Name Provider Source October 03, 2024 12:05 PM PRIMARY Post-traumatic stress disorder, unspecified MUNA VINCENT [facility] October 03, 2024 12:05 PM SECONDARY Alcohol dependence, uncomplicated MUNA VINCENT [facility] October 03, 2024 12:05 PM SECONDARY Depression, unspecified [facility] Plan of Treatment: Future Appointments (+ 6 months) and Future Tests (+/- 45 days) The Plan of Treatment section includes future care activities for the patient from all [place] [facility]. This section includes future appointments and future orders which are active, pending or scheduled. Future Appointments This section includes appointments that were scheduled to occur 6 months from the date of the Encounter, up to a maximum of 20 appointments. The data comes from all [facility] facilities. Appointment Date/Time Appointment Type Appointme nt Facility Name October 10, 2024 10:00 AM AMBULATORY - PSYCHIATRY [facility] Oct 16, 2024 01:00 PM AMBULATORY - PSYCHIATRY [facility] Oct 24, 2024 10:00 AM AMBUL[facility] Oct 31, 2024 10:00 AM [facility] Nov 26, 2024 10:30 AM AMBULATORY - MEDICINE [facility] Nov 27, 2024 01:00 PM AMBULATORY - PSYCHIATRY [facility] Social History: Smoking Status (Most [...] Nigel terrazas Jun 02, 2023 11:00 AM [place]-TOBACCO QUIT 5 TO < 15 YRS [facility] Tobacco Use History This section includes a history of the smoking, or tobacco-related health factors, that were collected on or before the date of the Encounter. The data comes from the [place] facility where the Encounter took place. Date/Time Smoking Status/Tobacco Use Comment Ramses baldwin Jun 02, 2023 11:00 AM VA-TOBACCO QUIT 5 TO < 15 YRS [facility] May 21, 2022 10:30 AM VA-TOBACCO FORMER USER [facility] May 21, 2022 10:30 AM [place]-TOBACCO QUIT 15 YRS OR MORE [facility] Nov 12, 2020 12:00 PM VA-TOBACCO FORMER USER [facility] Nov 12, 2020 12:00 PM VA-TOBACCO QUIT 5 TO < 15 YRS [facility] May 31, 2019 06:22 AM INPT NO TOBACCO USE IN LAST 30 D AYS [facility] Nov 08, 2017 01:55 PM VA-TOBACCO FORMER USER [facility] Nov 08, 2017 01:55 PM VA-TOBACCO QUIT 1 TO < 5 YRS [facility] May 11, 2017 12:43 PM FORMER TOBACCO USE >1Y <7Y [facility] Aug 04, 2016 10:25 AM FORMER TOBACCO USE >1Y <7Y [facility] Aug 04, 2015 11:31 AM FORMER TOBACCO USE <1Y [facility] Aug 13, 2014 10:50 AM CURRENT TOBACCO USER [facility] October 10, 2013 09:12 AM FORMER TOBACCO USER 7Y OR GREATE R [facility] May 26, 2012 10:14 AM CURRENT TOBACCO USER [facility] Nov 19, 2009 12:07 PM CURRENT TOBACCO USER [facility] Advance Directives: All historical and current Section Date Range: From patient's date of to the date document was created. This section includes ALL of a patient's completed or amended [place] Advance and Rescinded Directives. The entries below indicate that a directive exists for the patient, but an actual copy is not included with this document. The data comes from all [place] facilities. Date Advance Directives Provider Source Oct 31, 2023 ADVANCE DIRECTIVE HERLINDA SONG [facility] ([place]) Oct 17, 2023 ADVANCE DIRECTIVE DISCUSSION [facility] May 11, 2006 ADVANCE DIRECTIVE PEDRO CAMACHO [facility] Encounter Notes: All associated encounter notes This section contains the clinical notes associated to the Encounter. Date/Time Encounter Note(s) Provider Source October 03, 2024 10:00 AM MENTAL HEALTH GROU P COUNSELING NOTE: LOCAL TITLE: MH GROUP NOTE STANDARD TITLE: MENTAL HEALTH GROUP COUNSELING NOTE DATE OF NOTE: OCTOBER 03, 2024@10:00 ENTRY DATE: OCTOBER 03, 2024@10:18:25 AUTHOR: MUNA VINCENT COSIGNER: URGENCY: STATUS: COMPLETED Group Title: ADS Tuesday Aftercare Group Length: 90 minutes/Frequency: Once weekly seen by WEBEX Number of veterans in group: 9 Modality: Supportive therapy; CBT; Motivational Interviewing, Relational Automatic Print Developer(s): SERGE Terrell, MITZI Date of Attendance: October 03, 2024 via Traitify Conference call. [place] agreed to meet by Traitify and is aware it is not secure. [...] teleconferencing (CVT) to home. Visit conducted via SchoolTube video conferencing platform. has been informed of and verbally consented to confidentiality and its limits, including possible privacy risks using 3rd alliance party applications. [place] also advised that if they are not [...] skills, articulates josh /ubaldo/ SERGE RODRIGUEZ, [facility] CLINICAL HYDROGRAPHICAL TECHNICAL OFFICER Signed: 10/03/2024 12:05 MUNA VINCENT [facility]
--- OUTSIDE RECORDS SUMMARY | 2024-10-10 05:00 | XMS_ITS | Encounter Summary ---
Author Name [facility] [place] Address [address] [place] [address] Care Team Providers Care Yard Driver Name Role Phone HA HENDERSON Primary [...] Hurt's Name Patient's Relationship to Policy Hurt [facility] (R) MEDICARE ADVANTAGE MCR ([facility]) May 16, 2023 [id number] JEAN JAIN IN PATIENT [facility] (WNR) MEDICARE ADVANTAGE [facility] ([facility]) May 16, 2023 [id number] 17 JEAN JAIN IN PATIENT Selected Encounter This section includes the [place] on [place] at [place] for the Encounter. Date/Time Encounter Type Encounter Description Reason Provider Source October 10, 2024 10:00 AM GROUP PSYCHOTHERAPY [facility] ICD-10-CM F43.10 Post-traumatic stress disorder, unspecified MUNA VINCENT Encounter Template Text not used by VA Assessments - Encounter Diagnoses This section includes the primary and secondary diagnoses documented for the Encounter. Date/Time Primary/Secondary Diagnosis Diagnosis Name Provider Source October 10, 2024 12:05 PM PRIMARY Post-traumatic stress disorder, unspecified MUNA VINCENT [facility] October 10, 2024 12:05 PM SECONDARY Alcohol dependence, uncomplicated MUNA VINCENT [facility] October 10, 2024 12:05 PM SECONDARY Depression, unspecified [facility] Plan of Treatment: Future Appointments (+ 6 months) and Future Tests (+/- 45 days) The Plan of Treatment section includes future care activities for the patient from all [place] [facility]. This section includes future appointments and future orders which are active, pending or scheduled. Future Appointments This section includes appointments that were scheduled to occur 6 months from the date of the Encounter, up to a maximum of 20 appointments. The data comes from all [facility]. Appointment Date/Time Appointment Type Appointme nt Facility Name Oct 16, 2024 01:00 PM AMBULATORY - PSYCHIATRY [facility] Oct 24, 2024 10:00 AM AMBULATORY - PSYCHIATRY [facility] Oct 31, 2024 10:00 AM AMBULATORY - PSYCHIATRY [facility] Nov 26, 2024 10:30 AM AMBULATORY - MEDICINE [facility] Nov 27, 2024 01:00 PM AMBULATORY - PSYCHIATRY [facility] Social History: Smoking Status (Most current) and [...] 02, 2023 11:00 AM VA-TOBACCO FORMER USER [facility] Tobacco Use History This section includes a history of the smoking, or tobacco-related health factors, that were collected on or before the date of the Encounter. The data comes from the [place] facility where the Encounter took place. Date/Time Smoking Status/Tobacco Use Comment Ramses baldwin Jun 02, 2023 11:00 AM [place]-TOBACCO QUIT 5 TO < 15 YRS [facility] May 21, 2022 10:30 AM VA-TOBACCO FORMER USER [facility] May 21, 2022 10:30 AM [place]-TOBACCO QUIT 15 YRS OR MORE [facility] Nov 12, 2020 12:00 PM VA-TOBACCO FORMER USER [facility] Nov 12, 2020 12:00 PM VA-TOBACCO QUIT 5 TO < 15 YRS [facility] May 31, 2019 06:22 AM INPT NO TOBACCO USE IN LAST 30 D AYS [facility] Nov 08, 2017 01:55 PM VA-TOBACCO FORMER USER [facility] Nov 08, 2017 01:55 PM VA-TOBACCO QUIT 1 TO < 5 YRS [facility] May 11, 2017 12:43 PM FORMER TOBACCO USE >1Y <7Y [facility] Aug 04, 2016 10:25 AM FORMER TOBACCO USE >1Y <7Y [facility] Aug 04, 2015 11:31 AM FORMER TOBACCO USE <1Y [facility] Aug 13, 2014 10:50 AM CURRENT TOBACCO USER [facility] October 10, 2013 09:12 AM FORMER TOBACCO USER 7Y OR GREATE R [facility] May 26, 2012 10:14 AM CURRENT TOBACCO USER [facility] Nov 19, 2009 12:07 PM CURRENT TOBACCO USER [facility] Advance Directives: All historical and current Section Date Range: From patient's date of to the date document was created. This section includes ALL of a patient's completed or amended [place] Advance and Rescinded Directives. The entries below indicate that a directive exists for the patient, but an actual copy is not included with this document. The data comes from all [place] facilities. Date Advance Directives Provider Source Oct 31, 2023 ADVANCE DIRECTIVE HERLINDA SONG ([place]) Oct 17, 2023 ADVANCE DIRECTIVE DISCUSSION [facility] May [facility], 2006 ADVANCE DIRECTIVE PEDRO CAMACHO [facility] Encounter Notes: All associated encounter notes This section contains the clinical notes associated to the Encounter. Date/Time Encounter Note(s) Provider Source October 10, 2024 10:00 AM MENTAL HEALTH GROU P COUNSELING NOTE: LOCAL TITLE: MH GROUP NOTE STANDARD TITLE: MENTAL HEALTH GROUP COUNSELING NOTE DATE OF NOTE: OCTOBER 10, 2024@10:00 ENTRY DATE: OCTOBER 10, 2024@10:14:02 AUTHOR: MUNA VINCENT COSIGNER: URGENCY: STATUS: COMPLETED Group Title: ADS Tuesday Aftercare Group Length: 90 minutes/Frequency: Once weekly seen by WEBEX Number of veterans in group: 12 Modality: Supportive therapy; CBT; Motivational Interviewing, Relational Mortgage Loan Interviewer(s): SERGE Terrell, [facility] Date of Attendance: October 10, 2024 via WEBEX Conference call. agreed to meet by WEBBluebox and is aware it is not secure. [...] combat Alcohol Use Disorder, Severe Depressive Disorder [place] reports sobriety. Veterans were fully informed on [...] teleconferencing (CVT) to home. Visit conducted via VectorLearning video conferencing platform. has been informed of [...] has protective factors, coping skills, articulates josh /es/ SERGE RODRIGUEZ, [facility] CLINICAL HAND [employer] FOOD MAKER Signed: 10/10/2024 12:05 MUNA VINCENT [facility]
--- OUTSIDE RECORDS SUMMARY | 2024-10-16 08:00 | XMS_ITS | Encounter Summary ---
Author Name [facility] [place] [facility] [place] Address [address] [place] [address] Care Team Providers Care Child And Family Therapist Name Role Phone HA HENDERSON Primary Care [...] Relationship to Policy Hurt [facility] (WNR) MEDICARE ADVANTAGE [facility] ([facility]) May 16, 2023 [id number] JEAN JAIN IN PATIENT [facility] (WNR) MEDICARE ADVANTAGE [facility] (R) May 16, 2023 [id number] JEAN JAIN IN PATIENT Selected Encounter This section includes the information on record at [place] for the Encounter. Date/Time Encounter Type Encounter Description Reason Pro vider Source Oct 16, 2024 01:00 PM Outpatient Encounter TELEPHONE [facility] Encounter Template Text not used by [place] Plan of Treatment: Future Appointments (+ 6 months) and Future Tests (+/- 45 days) The Plan of Treatment section includes future care activities for the patient from all [place] treatmentfacilities. This section includes future appointments and future orders which are active, pending or scheduled. Future Appointments This section includes appointments that were scheduled to occur 6 months from the date of the Encounter, up to a maximum of 20 appointments. The data comes from all [place] treatment facilities. Appointment Date/Time Appointment Type Appointme nt Facility Name Oct 24, 2024 10:00 AM AMBULATORY - [facility]RY [facility] Oct 31, 2024 10:00 AM AMBULATORY - [facility]ATRY [facility] Nov 26, 2024 10:30 AM [facility] Nov 27, 2024 01:00 PM AMBULATORY - PSYCHIATRY [facility] Social History: Smoking Status (Most current) and Tobacco Use (All prior to encounter date) This section includes the most current, and the historical, smoking and tobacco- related health factors from the [place] facility where the Encounter took place. Current Smoking Status This section includes the most current smoking, or tobacco-related health factor, from the [place] facility where the Encounter took place. Date/Time Current Smoking Status Comment Facil ity Jun 02, 2023 11:00 AM VA-TOBACCO FORMER USER [facility] Tobacco Use History This section includes a history of the smoking, or tobacco-related health factors, that were collected on or before the date of the Encounter. The data comes from the [place] facility where the Encounter took place. Date/Time Smoking Status/Tobacco Use Comment F acility Jun 02, 2023 11:00 AM VA-TOBACCO QUIT 5 TO < 15 YRS [facility] May 21, 2022 10:30 AM VA-TOBACCO FORMER USER [facility] May 21, 2022 10:30 AM VA-TOBACCO QUIT 15 YRS OR MORE [facility] Nov 12, 2020 12:00 PM VA-TOBACCO FORMER USER [facility] Nov 12, 2020 12:00 PM VA-TOBACCO QUIT 5 TO < 15 YRS [facility] May 31, 2019 06:22 AM INPT NO TOBACCO USE IN LAST 30 D AYS [facility] Nov 08, 2017 01:55 PM VA-TOBACCO FORMER USER [facility] Nov 08, 2017 01:55 PM VA-TOBACCO QUIT 1 TO < 5 YRS [facility] May 11, 2017 12:43 PM FORMER TOBACCO USE >1Y <7Y [facility] Aug 04, 2016 10:25 AM FORMER TOBACCO USE >1Y <7Y [facility] Aug 04, 2015 11:31 AM FORMER TOBACCO USE <1Y [facility] Aug 13, 2014 10:50 AM CURRENT TOBACCO USER [facility] October 10, 2013 09:12 AM FORMER TOBACCO USER 7Y OR GREATE R [facility] May 26, 2012 10:14 AM CURRENT TOBACCO USER [facility] Nov 19, 2009 12:07 PM CURRENT TOBACCO USER [facility] Advance Directives: All historical and current Section Date Range: From patient's date of to the date document was created. This section includes ALL of a patient's completed or amended [place] Advance and Rescinded Directives. The entries below indicate that a directive exists for the patient, but an actual copy is not included with this document. The data comes from all [place] facilities. Date Advance Directives Provider Source Oct 31, 2023 ADVANCE DIRECTIVE CVIX,HERLINDA VIRK. GAYLE OUD (DOM) Oct 17, 2023 ADVANCE DIRECTIVE DISCUSSION [facility] May 11, 2006 ADVANCE DIRECTIVE PEDRO CAMACHO [facility] Encounter Notes: All associated encounter notes This section contains the clinical notes associated to the Encounter. Date/Time Encounter Note(s) Provider Source Oct 16, 2024 01:31 PM ADMINISTRATIVE NOT E: LOCAL TITLE: AFTER VISIT SUMMARY NOTE STANDARD TITLE: ADMINISTRATIVE NOTE DICT DATE: OCT 16, 2024@13:00 ENTRY DATE: OCT 16, 2024@13:31:19 DICTATED BY: MATEO PATEL EXP COSIGNER: URGENCY: STATUS: COMPLETED The patient was provided with a copy of an after-visit summary at the conclusion of the visit. A copy of the after-visit summary provided to the patient is available in [facility]. SCANNED DOCUMENT SIGNATURE NOT REQUIRED Electronically Filed: 10/16/2024 by: Mateo Patel MD Staff Psychiatrist MATEO PATEL [facility]
--- OUTSIDE RECORDS SUMMARY | 2024-10-16 08:00 | XMS_ITS | Encounter Summary ---
Author Name [facility] [place] Organization [place] Address [address] [place] [address] Care Team Providers Care Router Machine Operator Name Role Phone HA HENDERSON Primary [...] Hurt's Name Patient's Relationship to Policy Hurt [facility] [place]) MEDICARE ADVANTAGE [facility] ([facility]) May 16, 2023 [id number] JEAN JAIN IN PATIENT [facility] [place]) MEDICARE ADVANTAGE [facility] ([facility]) May 16, 2023 [id number] JEAN JAIN IN PATIENT Selected Encounter This section includes the information on record at [place] for the Encounter. Date/Time Encounter Type Encounter Description Reason Provider Source Oct 16, 2024 01:00 PM SYNCH AUDIO-ONLY EST MOD 30 TELEPHONE MH ICD-10-CM F43.12 Post-traumatic stress disorder, chronic PATTY PATEL Encounter Template Text not used by [place] Assessments - Encounter Diagnoses This section includes the primary and secondary diagnoses documented for the Encounter. Date/Time Primary/Secondary Diagnosis Diagnosis Name Provider Source Oct 16, 2024 01:00 PM PRIMARY Post-traumatic stress disorder, chronic ROBINSONPATTY WARNER [facility] Oct 16, 2024 01:00 PM SECONDARY Alcohol abuse, in remission PATTY PATEL [facility] Plan of Treatment: Future Appointments (+ 6 months) and Future Tests (+/- 45 days) The Plan of Treatment section includes future care activities for the patient from all [place] [facility]. This section includes future appointments and future orders which are active, pending or scheduled. Future Appointments This section includes appointments that were scheduled to occur 6 months from the date of the Encounter, up to a maximum of 20 appointments. The data comes from all [facility] facilities. Appointment Date/Time Appointment Type Appointme nt Facility Name Oct 24, 2024 10:00 AM AMBULATORY - PSYCHIATRY [facility] Oct 31, 2024 10:00 AM AMBULATORY - PSYCHIATRY [facility] Nov 26, 2024 10:30 AM AMBULATORY - MEDICINE [facility] Nov 27, 2024 01:00 PM AMBULATORY - PSYCHIATRY [facility] Social History: Smoking Status [...] [facility] Nov 12, 2020 12:00 PM [place]-TOBACCO QUIT 5 TO < 15 YRS [facility] May 31, 2019 06:22 AM INPT NO TOBACCO USE IN LAST 30 D AYS [facility] Nov 08, 2017 01:55 PM VA-TOBACCO FORMER USER [facility] Nov 08, 2017 01:55 PM VA-TOBACCO QUIT 1 TO < 5 YRS [facility] [...] Oct 17, 2023 ADVANCE DIRECTIVE DISCUSSION [facility] 11, 2005 ADVANCE DIRECTIVE PEDRO CAMACHO [facility] Encounter Notes: All associated encounter notes This section contains the clinical notes associated to the Encounter. Date/Time Encounter Note(s) Provider Source Oct 16, 2024 08:13 AM PSYCHIATRY E & M N OTE: LOCAL TITLE: PSYCHIATRIC EVALUATION & MANAGEMENT STANDARD TITLE: PSYCHIATRY E & M NOTE DATE OF NOTE: OCT 16, 2024@08:13 ENTRY DATE: OCT 16, 2024@08:13:26 AUTHOR: MATEO PATEL COSIGNER: URGENCY: STATUS: COMPLETED TELEPSYCHIATRIC EVALUATION AND MANAGEMENT FOLLOWUP VISIT Patient verbally consented to a telephone appointment. Patient's current location: At the home address on file. Emergency number: See numbers on file. Physician/Health Care Personnel: Mateo Patel MD Patient seen for 30 minute outpatient visit, with 20 minutes spent in psychotherapy. At least 11 minutes of total time spent in medical discussion IDENTIFICATION: CALVIN JAIN is a 69 year old seen for follow up ASSESSMENT: CALVIN JAIN reports low mood that is manageable in the context of recent GI symptoms. He has good adherence to prescribed medications. He is sleeping adequately approximately 6 hours at night and 30 minutes during the day however feels limited benefit from melatonin or Lunesta. He denies significant stressors and remains in close contact with his family. He has ongoing nausea without vomiting or diarrhea symptoms. There have been no issues with falls or imbalance. There is no significant substance use, SI or safety concerns. [facility] aftercare group has been helpful and he plans to continue attendance. Given his limited benefit from eszopiclone and previous benefit in sleep with trazodone, is able to calm will be discontinued and trazodone initiated. DIAGNOSES: Posttraumatic stress disorder, chronic Alcohol use disorder, severe, in early remission PLAN: Continue cyproheptadine 2 mg qhs for nightmares Continue duloxetine 40 mg qam for mood Discontinue eszopiclone (lack of efficacy) Start trazodone 100 mg qhs for sleep prn Continue melatonin 6 mg qhs for sleep and RBD prn Continue naltrexone to 50 mg qday prn for cravings FUTURE CONSIDERATIONS: Abstinent from alcohol since 07/2023 anniversary is a difficult time Seasonal mood changes 2x, close with siblings and friends, dog E8 MARTY MILES x3, E-8 RTC: 6 weeks, phone Chart reviewed since last visit. The following is obtained from the patient and chart review. INTERVAL HISTORY: Since the last visit, CALVIN JAIN reports: - General/Mood: not feeling that well physically and reports nausea without emesis or other GI symptoms. Depression is manageable. - Meds: Good adherence, denies significant side effects - Sleep: Less efficacy from melatonin, 6 hrs TST, naps 30 min daily, Lunesta used weekly - Stress: Some stress regarding weather, good relationship with family, talks with sister often - Health: Nausea w/o vomiting or diarrhea, want to drink more water, no recent falls - Drug/alcohol use: Denies alcohol or illicit substance use - Safety: denies SI or safety concerns - Therapy: Ongoing ARS group (Tuesday aftercare very helpful) TREATMENT HISTORY: 03/07: Self discontinued bupropion d/t lack of efficacy. Doxepin discontinued d/t lack of efficacy and possible hallucinations 06/07: Started lamotrigine titration 08/06: Discontinue lamotrigine (not started), discontinue eszopiclone, start prazosin titration 09/06: RRTP referral, contact information provided 10/06: ED for EtOH withdrawal, syncope, admission to medicine 10/06: Discharged from 11/06-12/06: RRTP 12/06: d/c prazosin and vortioxetine (concern for hypotension, d/c in RRTP), Duloxetine, eszopiclone and cyproheptadine started in RRTP. Naltrexone self d/c after cravings resolved. 02/06: Resume naltrexone, coping skills group referral 05/08: No changes 08/07: Increase duloxetine to 40 mg qam, increase melatonin to 6 mg nightly as needed for RBD 09/07: Change naltrexone to prn use per patient preference 11/07: Discontinue zopiclone (lost efficacy); start trazodone 100 mg nightly as needed JONATHAN OR TREATMENT HISTORY: ------ SSRIS: Citalopram/Escitalopram/Fl uoxetine/Sertraline (lack of efficacy); SNRIS: Venlafaxine (unsure); duloxetine (helpful for mood); OTHER ADs: Bupropion (lost efficacy); Doxepin (excessive somnolence, possible hallucinations); vortioxetine (concern for hypotension); trazodone (initial efficacy); APs: Aripiprazole (lack of efficacy); MOOD STABILIZERS: lamotrigine (not started); ANXIOLYTIC/SEDATIVES: Prazosin (worked well, hypotension); zolpidem (sleepwalking); eszopiclone (helpful for sleep, lost efficacy); cyproheptadine (helpful for nightmares); melatonin; MATs: Naltrexone (helpful for cravings); STIMULANTS: OTHERS: Topiramate (weight loss); PSYCHOTHERAPY: RRTP in 2023; MEDICATIONS: Active Outpatient Medications (including Supplies): Active Outpatient Medications Status 1) ALENDRONATE 10MG TAB TAKE ONE TABLET BY MOUTH EVERY ACTIVE DAY TO PREVENT BONE LOSS 2) CHOLECALCIF 25MCG (D3-1,000UNIT) TAB TAKE TWO TABLETS ACTIVE BY MOUTH EVERY DAY FOR VITAMIN D 3) CYPROHEPTADINE HCL 4MG TAB TAKE ONE-HALF TABLET BY ACTIVE MOUTH AT BEDTIME FOR PTSD NIGHTMARES 4) DULOXETINE HCL 20MG EC CAP TAKE TWO CAPSULES BY MOUTH ACTIVE EVERY MORNING FOR DEPRESSION 5) FOLIC ACID 1MG TAB TAKE ONE TABLET BY MOUTH EVERY DAY ACTIVE FOR FOLIC ACID SUPPLEMENT 6) MAGNESIUM OXIDE 420MG TAB TAKE ONE TABLET BY MOUTH AT ACTIVE BEDTIME FOR MAGNESIUM SUPPLEMENT 7) MELATONIN 3MG CAP/TAB TAKE 2 TABLETS BY MOUTH AT ACTIVE BEDTIME NEEDED FOR SLEEP AND REM SLEEP MOVEMENTS 8) NALTREXONE (EQV-REVIA) 50MG TAB TAKE ONE TABLET BY ACTIVE MOUTH EVERY DAY TO REDUCE CRAVINGS ALLERGIES: PENICILLIN (Nov 19, 2009) ZOLPIDEM (Dec 26, 2014) KENALONE INJECTION (40 MG/ML) (Oct 26, 2018) VITALS: Last Weight:242.4 lb [109.95 kg] (09/23/2023 05:02) BMI (if available): 34.4 Last blood pressure: 135/93 (09/30/2023 15:46) Last Pulse: 77 (09/30/2023 15:46) Recent Labs: CREATININE____ TSH ____ HEMOGLOBIN A1C____ GLUCOSE____ CHOLESTEROL____ SGOT____ SGPT____ GAMMA GTP____ WBC____ PLT ____ Drug levels (if relevant): LITHIUM____ VALPROIC ACID____ CARBAMAZEPINE____ PSYCHIATIC EXAMINATION (limited due to phone evaluation): -General: Alert, calm, cooperative. -Orientation: Alert to person, place and time. -Cognition/Memory: Intact, no evidence of memory problems -Speech: Normal rate and rhythm, coherent. -Mood: Not well -attributed to current nausea -Thought Process/Content: Goal-directed, linear. Denies SI/HI. -Delusions: No. -Sensorium/Perceptual Disturbance: Clear. No evidence of auditory and/or visual hallucinations. -Insight/Judgment: Intact -Attention: Intact. SAFETY ASSESSMENT: (Unchanged from prior) - Risks: male, MH dx, hx etoh use disorder, recent abstinence - Protective Factors: mood improved, denies SI, support from spouse/family, has social support, spiritual jayda, stable financial/living situation, no elevated etoh/substance use, future-oriented, intact reality testing, connected to providers, no hx of SAs - Assessment: Acute risk: Low Chronic Risk: low - Attending appointments, following recommendations, and compliant with prescribed psychiatric meds Patient demonstrated readiness to learn; stated understanding of education/plan provided at this encounter; denies further questions; and agrees with plan. Patient expressed understanding that they can call me or return for care sooner should they have side effects from medications, an increase in symptoms or other clinical concerns. Medication Reconciliation: Education Evaluations *Was medication education provided for NEW medications or CHANGES to medications? (including medication name, dose, route, reason for use, and potential side effects). No new medications or medication changes during this encounter. TERATOGENIC MED & CONTRACEPTION REVIEW (Optional)... ======= MEDICATION RECONCILIATION ======= List Given: An updated medication list was provided to the patient/caregiver. Review Done: The medication list shown below was verified for accuracy and reviewed with the patient/caregiver. It includes all pending medications/active medications/all medications or [...] FACILITY ALLERGY/ADR -------- CLNCL/HLTH GABE REPT EFF [id number] PENICILLINS [facility] KENALONE INJECTION (40 MG/ML) [facility] PENICILLIN [facility] ZOLPIDEM [facility] PENICILLIN [facility] TRIAMCINOLONE [facility] ZOLPIDEM Active and Recently Outpatient Medications (including Supplies): Issue Date Status Last Fill Active Outpatient Medications Refills Expiration 1) ALENDRONATE 10MG TAB Qty: 90 for 90 ACTIVE Issu:11-30-23 days Sig: TAKE ONE TABLET BY MOUTH Refills: 2 Last:04-13-24 EVERY DAY TO PREVENT BONE LOSS Expr:11-30-24 2) CHOLECALCIF 25MCG (D3-1,000UNIT) TAB ACTIVE Issu:11-30-23 Qty: 200 for 90 days Sig: TAKE TWO Refills: 3 Last:12-04-23 TABLETS BY MOUTH EVERY DAY FOR VITAMIN Expr:11-30-24 D 3) CYPROHEPTADINE HCL 4MG TAB Qty: 15 for ACTIVE Issu:09-04-24 30 days Sig: TAKE ONE-HALF TABLET BY Refills: 3 Last:09-05-24 MOUTH AT BEDTIME FOR PTSD NIGHTMARES Expr:09-05-25 4) DULOXETINE HCL 20MG EC CAP Qty: 180 for ACTIVE Issu:07-23-24 90 days Sig: TAKE TWO CAPSULES BY Refills: 3 Last:07-25-24 MOUTH EVERY MORNING FOR DEPRESSION Expr:07-24-25 5) FOLIC ACID 1MG TAB Qty: 90 for 90 days ACTIVE Issu:04-13-24 Sig: TAKE ONE TABLET BY MOUTH EVERY Refills: 3 Last:04-16-24 DAY FOR FOLIC ACID SUPPLEMENT Expr:04-14-25 6) MAGNESIUM OXIDE 420MG TAB Qty: 100 for ACTIVE Issu:04-13-24 90 days Sig: TAKE ONE TABLET BY MOUTH Refills: 3 Last:04-16-24 AT BEDTIME FOR MAGNESIUM SUPPLEMENT Expr:04-14-25 7) MELATONIN 3MG CAP/TAB Qty: 120 for 60 ACTIVE Issu:07-23-24 days Sig: TAKE 2 TABLETS BY MOUTH AT Refills: 5 Last:07-25-24 BEDTIME NEEDED FOR SLEEP AND REM Expr:07-24-25 SLEEP MOVEMENTS 8) NALTREXONE (EQV-REVIA) 50MG TAB Qty: 30 ACTIVE Issu:04-26-24 for 30 days Sig: TAKE ONE TABLET BY Refills: 5 Last:04-30-24 MOUTH EVERY DAY TO REDUCE CRAVINGS Expr:04-27-25 Issue Date Status Last Fill Inactive Outpatient Medications Refills Expiration 1) ACETAMINOPHEN 500MG TAB Qty: 100 for 30 Issu:06-15-24 days Sig: TAKE TWO TABLETS BY MOUTH Refills: 0 Last:06-18-24 TWICE A DAY NEEDED FOR PAIN Expr:07-15-24 2) CYPROHEPTADINE HCL 4MG TAB Qty: 15 for DISCONTINUED Issu:01-27-24 30 days Sig: TAKE ONE-HALF TABLET BY Refills: 3 Last:01-27-24 MOUTH AT BEDTIME FOR PTSD NIGHTMARES Expr:01-27-25 3) CYPROHEPTADINE HCL 4MG TAB Qty: 15 for DISCONTINUED Issu:11-30-23 30 days Sig: TAKE ONE-HALF TABLET BY Refills: 3 Last:12-04-23 MOUTH AT BEDTIME PTSD NIGHTMARES Expr:11-30-24 4) DULOXETINE HCL 30MG EC CAP Qty: 90 for DISCONTINUED Issu:01-27-24 90 days Sig: TAKE ONE CAPSULE BY (EDIT) Last:02-22-24 MOUTH EVERY MORNING FOR DEPRESSION Refills: 3 Expr:01-27-25 5) DULOXETINE HCL 30MG EC CAP Qty: 90 for DISCONTINUED Issu:11-30-23 90 days Sig: TAKE ONE CAPSULE BY Refills: 3 Last:12-04-23 MOUTH EVERY MORNING FOR DEPRESSION Expr:11-30-24 6) ESZOPICLONE 3MG TAB Qty: 30 for 30 days Issu:01-27-24 Sig: TAKE ONE TABLET BY MOUTH AT Refills: 2 Last:01-27-24 BEDTIME FOR SLEEP Expr:07-29-24 7) MELATONIN 3MG CAP/TAB Qty: 60 for 60 DISCONTINUED Issu:11-30-23 days Sig: TAKE 1 TABLET BY MOUTH AT (EDIT) Last:12-04-23 BEDTIME NEEDED FOR SLEEP Refills: 5 Expr:11-30-24 8) MIDODRINE HCL 10MG TAB Qty: 270 for 90 DISCONTINUED Issu:11-30-23 days Sig: TAKE ONE TABLET BY MOUTH Refills: 3 Last:12-04-23 THREE TIMES A DAY FOR LOW BLOOD Expr:11-30-24 PRESSURE 9) NALTREXONE (EQV-REVIA) 50MG TAB Qty: 30 DISCONTINUED Issu:01-27-24 for 30 days Sig: TAKE ONE TABLET BY Refills: 3 Last:01-27-24 MOUTH EVERY DAY TO REDUCE CRAVINGS Expr:01-27-25 10) NALTREXONE (EQV-REVIA) 50MG TAB Qty: 30 DISCONTINUED Issu:09-02-23 for 30 days Sig: TAKE ONE TABLET BY Refills: 8 Last:09-02-23 MOUTH EVERY DAY FOR SOBRIETY Expr:09-02-24 11) PRAZOSIN HCL 1MG CAP Qty: 90 for 90 DISCONTINUED Issu:08-22-23 days Sig: TAKE ONE CAPSULE BY MOUTH Refills: 1 Last:10-12-23 AT BEDTIME --MAY INCREASE DOSE BY ONE Expr:08-22-24 CAPSULE EVERY 3 DAYS UP TO 5 CAPSULES NIGHTLY TOLERATED 12) VORTIOXETINE 20MG TAB Qty: 90 for 90 DISCONTINUED Issu:08-22-23 days Sig: TAKE ONE TABLET BY MOUTH Refills: 3 Last:08-22-23 EVERY DAY Expr:08-22-24 20 Total Medications /es/ Mateo Patel MD Staff Psychiatrist Signed: 10/16/2024 13:33 MATEO PATEL [facility]
--- OUTSIDE RECORDS SUMMARY | 2024-10-22 10:26 | XMS_ITS | Encounter Summary ---
Author Name [facility] [place] Address [address], [place] [address] Care Team Providers Care Medical Technologist Clinical Name Role Phone HA HENDERSON Primary Care [...] Hurt [facility] (WNR) MEDICARE ADVANTAGE [facility] ([facility]) May 16, 2023 [id number] JEAN JAIN IN PATIENT [facility] ([place]NR) MEDICARE ADVANTAGE [facility] (R) May 16, 2023 [id number] JEAN JAIN IN PATIENT Selected Encounter This section includes the information on record at [place] for the Encounter. Date/Time Encounter Type Encounter Description Reason Pro vider Source Oct 22, 2024 03:26 PM Outpatient Encounter [facility] Encounter Template Text not used by [place] Plan of Treatment: Future Appointments (+ 6 [...] 20 appointments. The data comes from all [place] treatment facilities. Appointment Date/Time Appointment Type Appointme nt Facility Name Oct 24, 2024 10:00 AM AMBULATORY - [facility]ATRY [facility] Oct 31, 2024 10:00 AM AMBULATORY - [facility]IATRY [facility] Nov 26, 2024 10:30 AM [facility] Nov 27, 2024 01:00 PM AMBULATORY - [facility]CHIATRY [facility] Social History: Smoking Status (Most current) [...] 2023 11:00 AM VA-TOBACCO FORMER USER [facility] Tobacco Use [...] SERVICES May 21, 2022 10:30 AM VA-TOBACCO QUIT [address] [facility] this document. The data comes from all [place] facilities. Date Advance Directives Provider Source Oct 31, 2023 ADVANCE DIRECTIVE CVIXHERLINDA OUD (DOM) Oct 17, 2023 ADVANCE DIRECTIVE DISCUSSION [facility] [birth year], 2006 ADVANCE DIRECTIVE PEDRO CAMACHO [facility] Encounter Notes: All associated encounter notes This section contains the clinical notes associated to the Encounter. Date/Time Encounter Note(s) Provider Source Oct 22, 2024 03:26 PM NO SHOW NOTE: LOCAL TITLE: NO SHOW/CANCELLATION CLINIC NOTE STANDARD TITLE: NO SHOW NOTE DATE OF NOTE: OCT 22, 2024@15:26 ENTRY DATE: OCT 22, 2024@15:26:58 AUTHOR: SHYANNE KEVIN EXP COSIGNER: URGENCY: STATUS: COMPLETED [place] not seen for scheduled appointment due to: Other Clinic cancelled group on 10/17/24 due to provider out of office Provider sent email to notify . Appointment Rescheduled: No already scheduled for next group date. Please review patient chart and medications for renewal needs (if appropriate). /ubaldo/ SHYANNE KEVIN Lead Family Service Aide Signed: 10/22/2024 15:[address] [facility]
--- OUTSIDE RECORDS SUMMARY | 2024-10-24 05:00 | XMS_ITS | Encounter Summary ---
Author Name [facility] [facility] [place] Address [address], [place] [address] Care Team Providers Care Medicare Compliance Auditor Name Role Phone HA HENDERSON Primary Care [...] Hurt's Name Patient's Relationship to Policy Hurt [facility] (WNR) MEDICARE ADVANTAGE [facility] ([facility]) May 16, 2023 [id number] JEAN JAIN IN PATIENT [facility] (WNR) MEDICARE ADVANTAGE [facility] ([place]) May 16, 2023 [id number] JEAN JAIN IN PATIENT Selected Encounter This section includes the information on record at [place] for the Encounter. Date/Time Encounter Type Encounter Description Reason Pro vider Source Oct 24, 2024 10:00 AM Outpatient Encounter [facility] IHE Encounter Template Text not used by [place] Plan of Treatment: Future Appointments (+ 6 [...] data comes from all [place] treatment facilities. Appointment Date/Time Appointment Type Appointme nt Facility Name Oct 31, 2024 10:00 AM AMBULATORY - PS[facility]RY [facility] Nov 26, 2024 10:30 AM AMBULATORY - MEDICINE [facility] Nov 27, 2024 01:00 PM AMBULATORY - PS[facility]CHIATRY [facility] Social History: Smoking Status [...] 02, 2023 11:00 AM VA-TOBACCO FORMER USER [facility] Tobacco Use History This section includes a history of the smoking, or tobacco-related health factors, that were collected on or before the date of the Encounter. The data comes from the [place] facility where the Encounter took place. Date/Time Smoking Status/Tobacco Use Comment F acility Jun 02, 2023 11:00 AM VA-TOBACCO QUIT 5 TO < 15 YRS [facility] May 21, 2022 10:30 AM VA-TOBACCO FORMER USER [facility] May 21, 2022 10:30 AM VA-TOBACCO QUIT 15 YRS OR MORE [facility] Nov 12, 2020 12:00 PM VA-TOBACCO FORMER USER [facility] Nov 12, 2020 12:00 PM VA-TOBACCO QUIT 5 TO < 15 YRS [facility] May 31, 2019 06:22 AM INPT NO TOBACCO USE IN LAST 30 D AYS [facility] Nov 08, 2017 01:55 PM VA-TOBACCO FORMER USER [facility] Nov 08, 2017 01:55 PM VA-TOBACCO QUIT 1 TO < 5 YRS [facility] May 11, 2017 12:43 PM FORMER TOBACCO USE >1Y <7Y [facility] Aug 04, 2016 10:25 AM FORMER TOBACCO USE >1Y <7Y [facility] Aug 04, 2015 11:31 AM FORMER TOBACCO USE <1Y [facility] Aug 13, 2014 10:50 AM CURRENT TOBACCO USER [facility] October 10, 2013 09:12 AM FORMER TOBACCO USER 7Y OR GREATE R [facility] May 26, 2012 10:14 AM CURRENT TOBACCO USER [facility] Nov 19, 2009 12:07 PM CURRENT TOBACCO USER [facility] Advance Directives: All historical and [...] 17, 2023 ADVANCE DIRECTIVE DISCUSSION [facility] May 11, 2006 ADVANCE DIRECTIVE PEDRO CAMACHO [facility]
--- OUTSIDE RECORDS SUMMARY | 2024-10-24 11:22 | XMS_ITS | Continuity of Care Document ---
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 It does not include entries that were removed or entered in error. Problem Status Onset Date Problem Type Date of Resolution Comments Source Exposure to potentially hazardous substance ([facility] [id number]) Active 024 Condition Jul 20, 2023 Entered By: TRIXIE [place] Comment: [facility] [facility] Documentation Initiative [facility] visit for: examination of subpopulation Active Condition DoD ASTIGMATISM - REGULAR Active Condition DoD REFRACTIVE ERROR - MYOPIA Active Condition DoD visit for: services physical demobilization Active Condition DoD ASSESSMENT OF PATIENT CONDITION WORK-RELATED Active Condition Do D Vaccines Prophylactic Need Against Influenza Inactive Condition Do D visit for: screening exam pulmonary tuberculosis Inactive Condition DoD CONDITIONS INFLUENCING HEALTH STATUS Active Condition DoD HYPERTENSION (SYSTEMIC) Active Condition DoD HEARING LOSS Active Condition DoD HYPERLIPIDEMIA Active Condition DoD Blood Pressure Isolated Elevated Active Condition DoD visit for: ears / hearing exam Active Condition [facility] visit for: services physical Active Condition DoD tobacco use Inactive Condition DoD joint stiffness of the knee Inactive Condition DoD joint pain, localized in the knee Inactive Condition DoD pain in the leg (below the knee) Active Condition Do[facility] NICOTINE DEPENDENCE Active Condition Do [facility] X-Ray Hands Soft Tissue Swelling Inactive Condition [facility] Alcohol abuse Active Condition [facility] Cataract nos Active Condition [place] [facility] Chronic post-traumatic stress disorder Active Condition [place] [facility] Compression fracture of thoracic spine (SNOMED CT 307830906) Active Condition [place] [facility] Depression * (ICD-9-CM 311.) Active Condition [facility] Dyspnea on exertion Active Condition [facility] [facility] Dyspnea on exertion (SNOMED CT 12572873) [facility] Elevated blood pressure Active Condition [facility] Exposure to potentially hazardous substance Active Condition [facility] High risk drug monitoring status Active Condition [place] [facility] Hypercholesterolemia Active Condition [facility] Hyperlipidemia (SNOMED CT 66952749) Active Condition [facility] Hypertension Active Condition [facility] Inflammatory polyarthritis Active Condition [facility] Insomnia (SCT 923179691) Active Condition [facility] INSOMNIA, unspecified Active Condition [facility] Knee pain Active Condition [facility] Knee Pain Active Condition [facility] Low back pain (SNOMED CT 124272930) Active Condition [facility] Major depressive disorder Active Condition [facility] Multiple pulmonary nodules Active Condition [facility] Obesity Active Condition [facility] Obstructive Sleep Apnea (Adult) (Pediatric) (ICD-9-CM 327.23) Active Condition October 06, 2020 Entered By: MARCY PULIDO Comment: 07/06/12 Mild: PRDI 16.4: on CPAP. 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 OEF/OIF EXPOSURE TO SANDSTORMS/DUSTSTORMS Active Condition [facility] Osteoarthritis of knee (SNOMED CT 076193301) Active Condition [facility] Osteoarthrosis involving the knee Active Condition [facility] Pain radiating to right side of chest Active Condition [facility] PAIN, NECK/CERVICALGIA Active Condition [facility] Posttraumatic stress disorder Active Condition October 06, 2020 Entered By: MARCY PULIDO Comment: has service dog [facility] Primary insomnia (ICD-9-CM 780.52/307.42) Active Condition [facility] Primary Obesity (ICD-9-CM 278.00) Active Condition [facility] Pseudogout Active Condition Jun 02 Entered By: LAURA SOMMER Comment: Left knee [facility] PTSD - Post-traumatic stress disorder Active Condition [facility] Sacroiliitis (ICD-9-CM 720.2) Active Condition [facility] Screening for Ischemic Heart Disease (ICD-9-CM V81.0) Active Condition [facility] Sensorineural Hearing Loss, Bilateral (ICD-9-CM 389.18) Active Condition [facility] Severe alcohol dependence Active Condition [facility] Tobacco Use Disorder Active Condition [facility] Tobacco Use Disorder, Continuous (ICD-9-CM 305.1) Active Condition October 06, 2020 Entered By: MARCY PULIDO Comment: Quit cigarettes 2012 [facility] Knee: arthralgia * (ICD-9-CM 719.46) Inactive Condition 06/02/2012 [facility] Diagnosis: ICD-10-CM F43.12 Post-traumatic stress disorder, chronic Active Diagnosis [facility] Diagnosis: ICD-10-CM F43.10 Post-traumatic stress disorder, unspecified Active Diagnosis [facility] Diagnosis: ICD-10-CM W06.XXXA Fall from bed, initial encounter Active Diagnosis [place] [facility] Diagnosis: ICD-10-CM R91.8 Other nonspecific abnormal finding of lung field Active Diagnosis [place] [facility] Diagnosis: ICD-10-CM Z71.89 Other specified counseling Active Diagnosis [facility] Diagnosis: ICD-10-CM F33.1 Major depressive disorder, recurrent, moderate Active Diagnosis [facility] Diagnosis: ICD-10-CM Z51.81 Encounter for therapeutic drug level monitoring Active Diagnosis [facility] Diagnosis: ICD-10-CM F10.10 Alcohol abuse, uncomplicated Active Diagnosis [facility] Diagnosis: ICD-10-CM G47.00 Insomnia, unspecified Active Diagnosis [facility] Diagnosis: ICD-10-CM Z71.81 Spiritual or restorationist counseling Active Diagnosis [facility] Diagnosis: ICD-10-CM Z56.9 Unspecified problems related to employment Active Diagnosis [facility] Admit Reason: dual Active Diagnosis [facility] Diagnosis: ICD-10-CM K21.00 Gastro-esophageal reflux dis with esophagitis, without bleed Active Diagnosis [facility] Diagnosis: ICD-10-CM Z74.09 Other reduced mobility Active Diagnosis [facility] Diagnosis: ICD-10-CM I95.1 Orthostatic hypotension Active Diagnosis [facility] Diagnosis: ICD-10-CM R26.89 Other abnormalities of gait and mobility Active Diagnosis [facility] Diagnosis: ICD-10-CM M62.81 Muscle weakness (generalized) Active Diagnosis [facility] Admit Reason: ORTHOSTATIC HYPOTENSION Active Diagnosis [facility] Diagnosis: ICD-10-CM I95.9 Hypotension, unspecified Active Diagnosis [facility] Admit Reason: ETOH USE DISORDER Active Diagnosis [facility] Diagnosis: ICD-10-CM M25.552 Pain in left hip Active Diagnosis [facility] Diagnosis: ICD-10-CM M06.4 Inflammatory polyarthropathy Active Diagnosis [facility] Medications Combined list of outpatient medications from 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Medications provided include 1) outpatient medications from the last 15 months, and 2) patient-reported medications. Medication Details Route Status Patient Instructions Prescription Expires Prescription Number Last Dispense Date Ordering Provider Order Date Order Qty Source ACETAMINOPH EN 500MG TAB TAKE TWO TABLETS BY MOUTH TWICE A DAY NEEDED FOR PAIN ORAL 07/15/2024 [id number] Carl SULTANA K 2024 100 [facility] ACETAMINOPH EN 500MG TAB TAKE TWO TABLETS BY MOUTH TWICE A DAY FOR LOW BACK AND LEFT HIP PAIN ORAL 06/02/2024 [id number] 4 Radha HENDERSON ENJAMIN E 2023 400 [facility] ACETAMINOPH EN 500MG TAB TAKE TWO TABLETS BY MOUTH TWICE A DAY FOR PAIN (MAXIMUM DOSE IS 4000MG PER DAY) ORAL 12/11/2023 [id number] 4 Milagro SAMAYOA [address] [facility] 400MG/MG [place] 400MG/SIMET HICONE 40MG/5ML LIQUID(360M L) TAKE 15ML BY MOUTH THREE TIMES A DAY NEEDED FOR [facility]ART[place] N SHAKE WELL COMBINE WITH LIDOCAIN E FOR GI COCKTAIL ORAL 10/30/2023 [id number] 4 ANTHONY RIVERS 2023 1 [facility] [place] 400MG/MG [place] 400MG/SIMET HICONE 40MG/5ML LIQUID(360M L) TAKE 15ML BY MOUTH THREE TIMES A DAY NEEDED FOR INDIGEST ION ORAL 12/11/2023 [id number] Milagro SAMAYOA [address] [facility] ALENDRONATE 10MG TAB TAKE ONE TABLET BY MOUTH EVERY DAY TO PREVENT BONE LOSS ORAL ACTIVE 11/30/2024 [id number] 4 Radha HENDERSON ENJAMIN E 2023 90 [place] [facility] CHOLECALCIF AJ 25MCG (1,000UNIT) TAB TAKE TWO TABLETS BY MOUTH EVERY DAY FOR VITAMIN D ORAL ACTIVE 11/30/2024 [id number] 4 Radha HENDERSON ENJAMIN E 2023 200 [place] [facility] CHOLECALCIF AJ 25MCG (1,000UNIT) TAB TAKE ONE TABLET BY MOUTH EVERY DAY FOR VITAMIN D ORAL DISCONT INUED (EDIT) 03/31/2024 [id number] 4 Radha HENDERSON ENJAMIN E 2022 100 [place] [facility] CHOLECALCIF AJ 50MCG (2,000UNIT) TAB TAKE ONE TABLET BY MOUTH AT 8AM FOR VITAMIN D SUPPLEME NT ORAL 12/11/2023 [id number] Milagro SAMAYOA [address] [facility] CYANOCOBALA MIN 1000MCG TAB TAKE ONE TABLET BY MOUTH EVERY DAY FOR VITAMIN B12 SUPPLEME NT ORAL 12/11/2023 [id number] Milagro SAMAYOA [address] [facility] ([place]) CYANOCOBALA MIN 1000MCG TAB TAKE ONE TABLET BY MOUTH EVERY DAY FOR B12 SUPPLEME NT ORAL 06/02/2024 [id number] 4 Radha HENDERSON ENJAMIN E 2023 100 [place] [facility] CYPROHEPTAD INE HCL 4MG TAB TAKE ONE-HALF TABLET BY MOUTH AT BEDTIME FOR PTSD NIGHTMAR ES ORAL ACTIVE 09/05/2025 [id number] 5 Raysa BOWERS ACQUEAGLE T 2024 15 [place] [facility] CYPROHEPTAD INE HCL 4MG TAB TAKE ONE-HALF TABLET BY MOUTH AT BEDTIME FOR PTSD NIGHTMAR ES ORAL DISCONT INUED 01/27/2025 [id number] 4 Raysa BOWERS ACQUEAGLE T 2023 15 [place] [facility] CYPROHEPTAD INE HCL 4MG TAB TAKE ONE-HALF TABLET BY MOUTH AT BEDTIME PTSD NIGHTMAR ES ORAL DISCONT INUED 11/30/2024 [id number] Radha HENDERSON ENJAMIN E 2023 15 [facility] CYPROHEPTAD INE HCL 4MG TAB TAKE ONE-HALF TABLET BY MOUTH AT BEDTIME FOR PTSD NIGHTMAR ES ORAL 12/11/2023 [id number] Milagro SAMAYOA [address] [facility] ([place] DULOXETINE HCL 20MG CAP,EC TAKE TWO CAPSULES BY MOUTH EVERY MORNING FOR DEPRESSI ON ORAL ACTIVE 07/24/2025 [id number] 5 Raysa BOWERS T 2024 180 [place] [facility] DULOXETINE HCL 30MG CAP,EC TAKE ONE CAPSULE BY MOUTH EVERY MORNING FOR DEPRESSI ON ORAL DISCONT INUED (EDIT) 01/27/2025 [id number] 4 Raysa BOWERS T 2023 90 [place] [facility] DULOXETINE HCL 30MG CAP,EC TAKE ONE CAPSULE BY MOUTH EVERY MORNING FOR DEPRESSI ON ORAL DISCONT INUED 11/30/2024 [id number] 4 Radha HENDERSON ENJAMIN E 2023 90 [place] [facility] DULOXETINE HCL 30MG CAP,EC TAKE ONE CAPSULE BY MOUTH EVERY MORNING FOR DEPRESSI ON, ANXIETY, AND PAIN ORAL 12/11/2023 [id number] Milagro SAMAYOA [address] [facility] ([place] ESZOPICLONE 3MG TAB TAKE ONE TABLET BY MOUTH AT BEDTIME FOR SLEEP ORAL DISCONT INUED 06/15/2024 [id number] 4 Raysa BOWERS T 2023 30 [place] [facility] ESZOPICLONE 3MG TAB TAKE ONE TABLET BY MOUTH AT BEDTIME FOR SLEEP ORAL 07/29/2024 [id number] 4 Raysa BOWERS T 2023 30 [place] [facility] ESZOPICLONE 3MG TAB TAKE ONE TABLET BY MOUTH AT BEDTIME FOR SLEEP ORAL 12/11/2023 [id number] Milagro SAMAYOA [address] [facility] FOLIC ACID 1MG TAB TAKE ONE TABLET BY MOUTH EVERY DAY FOR FOLIC ACID SUPPLEME NT ORAL ACTIVE 04/14/2025 [id number] 4 Radha HENDERSON ENJAMIN E 2023 90 [facility] FOLIC ACID 1MG TAB TAKE ONE TABLET BY MOUTH EVERY DAY FOR FOLIC ACID SUPPLEME NT ORAL DISCONT INUED 02/09/2024 [id number] 4 Radha HENDERSON ENJAMIN E 2022 90 [facility] [facility] FOLIC ACID 1MG TAB TAKE ONE TABLET BY MOUTH EVERY DAY FOR FOLIC ACID SUPPLEME NT ORAL 12/11/2023 [id number] Milagro SAMAYOA [address] [facility] ([place]) LIDOCAINE HCL 2% LIQUID,VISC OUS TAKE 15ML BY MOUTH THREE TIMES A DAY NEEDED [facility]ART[facility] N PAIN 15ML IS EQUAL TO ONE TABLESPO ONFUL COMBINE WITH ALUMINUM /MG/FROYLAN THICONE FOR GI COCKTAIL ORAL 10/30/2023 [id number] ANTHONY RIVERS 2023 100 [place] [facility] MAGNESIUM OXIDE 420MG TAB TAKE ONE TABLET BY MOUTH AT BEDTIME FOR MAGNESIU M SUPPLEME NT ORAL ACTIVE 04/14/2025 [id number] 4 Radha HENDERSON ENJAMIN E 2023 100 [facility] MAGNESIUM OXIDE 420MG TAB TAKE ONE TABLET BY MOUTH AT BEDTIME FOR MAGNESIU M SUPPLEME NT ORAL DISCONT INUED 02/08/2024 [id number] 4 Radha HENDERSON ENJAMIN E 2022 90 [facility] [facility] MAGNESIUM OXIDE 420MG TAB TAKE ONE TABLET BY MOUTH AT BEDTIME FOR MAGNESIU M SUPPLEME NT ORAL 12/11/2023 [id number] Milagro SAMAYOA [address] [facility] MELATONIN 3MG CAP/TAB TAKE 2 TABLETS BY MOUTH AT BEDTIME NEEDED FOR SLEEP AND REM SLEEP MOVEMENT S ORAL ACTIVE 07/24/2025 [id number] 5 Raysa BOWERS T 2024 120 [place] [facility] MELATONIN 3MG CAP/TAB TAKE 1 TABLET BY MOUTH AT BEDTIME NEEDED FOR SLEEP ORAL DISCONT INUED (EDIT) 11/30/2024 [id number] 4 Radha HENDERSON ENJAMIN E 2023 60 [place] [facility] MELATONIN 3MG CAP/TAB TAKE ONE BY MOUTH AT BEDTIME FOR SLEEP TAKE 1 HOUR PRIOR TO BEDTIME OR DIRECTED BY PROVIDER ORAL 12/11/2023 [id number] Milagro SAMAYOA [address] [facility] MIDODRINE HCL 10MG TAB TAKE ONE TABLET BY MOUTH THREE TIMES A DAY FOR LOW BLOOD PRESSURE ORAL DISCONT INUED BY PROVIDE R 11/30/2024 [id number] 4 Radha HENDERSON ENJAMIN E 2023 270 [place] [facility] MIDODRINE HCL 10MG TAB TAKE ONE TABLET BY MOUTH THREE TIMES A DAY WITH MEALS FOR LOW BLOOD PRESSURE ORAL 12/11/2023 [id number] Milagro SAMAYOA [address] [facility] NALTREXONE (EQV-REVIA) 50MG TAB TAKE ONE TABLET BY MOUTH EVERY DAY TO REDUCE CRAVINGS ORAL ACTIVE 04/27/2025 [id number] 4 Raysa BOWERS T 2023 30 [place] [facility] NALTREXONE (EQV-REVIA) 50MG TAB TAKE ONE TABLET BY MOUTH EVERY DAY TO REDUCE CRAVINGS ORAL DISCONT INUED 01/27/2025 [id number] 4 Raysa BOWERS T 2023 30 [place] [facility] NALTREXONE (EQV-REVIA) 50MG TAB TAKE ONE TABLET BY MOUTH EVERY DAY FOR SOBRIETY ORAL DISCONT INUED BY PROVIDE R 09/02/2024 [id number] Radha HENDERSON ENJAMIN E 2023 30 [place] [facility] NALTREXONE (EQV-REVIA) 50MG TAB TAKE ONE TABLET BY MOUTH EVERY DAY FOR SOBRIETY ORAL DISCONT INUED 02/08/2024 [id number] 4 Radha HENDERSON ENJAMIN E 2022 90 [facility] OMEPRAZOLE 40MG CAP,EC TAKE ONE CAPSULE BY MOUTH TWICE A DAY FOR HEARTBUR N ORAL DISCONT INUED 01/03/2024 [id number] 4 MIAH FUNEZ 2023 180 [facility] OMEPRAZOLE 40MG CAP,EC TAKE ONE CAPSULE BY MOUTH TWO TIMES A DAY FOR HEARTBUR N HIGHER AND MORE FREQUENT DOSE UNTIL ENDOSCOP Y 10/04 ORAL DISCONT INUED BY PROVIDE R 10/30/2023 [id number] ANTHONY RIVERS 2023 14 [facility] OMEPRAZOLE 40MG CAP,EC TAKE ONE CAPSULE BY MOUTH TWICE A DAY FOR HEARTBUR N ORAL 02/28/2024 [id number] 4 Radha HENDERSON ENJAMIN E 2023 180 [facility] OMEPRAZOLE 40MG CAP,EC TAKE ONE CAPSULE BY MOUTH TWICE A DAY BEFORE MORNING AND EVENING MEAL FOR STOMACH ORAL 12/11/2023 [id number] Milagro SAMAYOA [address] [facility] ([place] PRAZOSIN HCL 1MG CAP TAKE ONE CAPSULE BY MOUTH AT BEDTIME --MAY INCREASE DOSE BY ONE CAPSULE EVERY 3 DAYS UP TO 5 CAPSULES NIGHTLY TOLERATE D ORAL DISCONT INUED BY PROVIDE R 08/22/2024 [id number] 4 Raysa BOWERS 2023 90 [facility] THIAMINE 100MG TAB TAKE ONE TABLET BY MOUTH EVERY DAY FOR SUPPLEME NT ORAL 02/09/2024 [id number] Radha HENDERSON ENJAMIN E 2022 100 [facility] THIAMINE 100MG TAB TAKE ONE TABLET BY MOUTH EVERY DAY FOR THIAMINE DEFICIEN CY ORAL 12/11/2023 [id number] Milagro SAMAYOA [address] [facility] TRAZODONE HCL 100MG TAB TAKE ONE TABLET BY MOUTH AT BEDTIME NEEDED FOR SLEEP ORAL ACTIVE 10/17/2025 [id number] 5 Raysa BOWERS T 2024 60 [facility] VORTIOXETIN E 20MG TAB TAKE ONE TABLET BY MOUTH EVERY DAY ORAL DISCONT INUED BY PROVIDE R 08/22/2024 [id number] 4 Raysa BOWERS T 2023 90 [facility] Allergies, Adverse Reactions, Alerts Combined list of allergies from Department of [facility] and [facility] facilities. It does not include entries that were removed or entered in error. Substance Category Reaction Severity Reaction type Status Date Reported Comments Source KENALONE INJECTION (40 MG/ML) Propensity to adverse reactions to drug (finding) Depressive disorder active 9 [facility] KENALONE INJECTION (40 MG/ML) Propensity to adverse reactions to drug (finding) active 4 [facility] PENICILLIN Propensity to adverse reactions to drug (finding) active 4 [facility] PENICILLIN-G RELATED PENICILLINS Drug allergy (disorder) active 0 [facility] Penicillins Drug allergy (disorder) Unknown active 1 [facility] [place] Zolpidem Drug allergy (disorder) Somnambulis m active 5 [facility] ZOLPIDEM Propensity to adverse reactions to drug (finding) Sleep walking disorder active 5 [facility] ZOLPIDEM Propensity to adverse reactions to drug (finding) active 4 [facility] Immunizations Combined list of available immunizations from the Department of [facility] and [facility] facilities. Immunization Series Date Given Administered By Site Reaction Lot Number CVX Code Drug Sliver Former Status Comments Source COVID-19 (Chartbeat), MRNA, LNP-S, PF, MELISA-SUCROSE, 30 MCG/0.3 ML (AGES 12+ YEARS) 1 2023 ASHLEE CARRINGTON N RIGHT DELTO ID [id number] 309 complet ed [facility] [place], [facility] INFLUENZA, HIGH-DOSE, QUADRIVALENT 2022 LESTER SANCHEZ LEFT DELTO ID [id number] A 197 complet ed [facility] [place], [facility] INFLUENZA VACCINE, QUADRIVALENT, ADJUVANTED 2022 GL[place]YS [place] LEFT DELTO ID [id number] 205 complet ed [facility] [place], [facility] COVID-19, mRNA, LNP-S, PF, 100 mcg or 50 mcg dose 2021 HAVRON, Moderna [employer] (MOD) Not Given COVID-19, mRNA, LNP-S, PF, 100 mcg or [address] [facility] COVID-19 (MODERNA), MRNA, LNP-S, PF, 100 MCG/0.5ML DOSE OR 50 MCG/0.25ML DOSE 2021 207 complet ed HISTORICA L INFORMATI ON - FROM OTHER REGISTRY, [facility] PNEUMOCOCCAL POLYSACCHARID E [id number] 2021 33 complet ed [facility] TDAP 2021 115 complet ed [facility] PNEUMOCOCCAL CONJUGATE PCV 13 2021 133 complet ed [employer], Lot # [id number], Exp 07/07 [facility] influenza, injectable, quadrivalent, preservative free 2020 ATTARIAN, () Not Given influenza , injectabl e, quadrival ent, preservat rock free [facility] COVID-19, mRNA, LNP-S, PF, 100 mcg or 50 mcg dose 2020 ATTARIAN, () Not Given COVID-19, mRNA, LNP-S, PF, 100 mcg or 50 mcg dose DoD COVID-19 (MODERNA), MRNA, LNP-S, PF, 100 MCG OR 50 MCG DOSE 3 2020 207 complet ed [facility] INFLUENZA, INJECTABLE, QUADRIVALENT, PRESERVATIVE FREE 2020 150 complet ed HISTORICA L INFORMATI ON - FROM OTHER REGISTRY, [facility] INFLUENZA, UNSPECIFIED FORMULATION 2020 88 complet ed [facility] COVID-19 (MODERNA), MRNA, LNP-S, PF, 100 MCG/0.5 ML DOSE 2 2020 207 complet ed [facility] COVID-19 (MODERNA), MRNA, LNP-S, PF, 100 MCG/0.5 ML DOSE 1 2020 207 complet ed [facility] TDAP 2020 115 complet ed HISTORICA L INFORMATI ON - FROM OTHER REGISTRY, [facility] influenza, injectable, quadrivalent, preservative free 2019 OVERHOLT, () Not Given influenza , injectabl e, quadrival ent, preservat rock free DoD INFLUENZA, INJECTABLE, QUADRIVALENT, PRESERVATIVE FREE 2019 150 complet ed HISTORICA L INFORMATI ON - FROM OTHER REGISTRY, [facility] INFLUENZA, UNSPECIFIED FORMULATION 2019 88 complet ed [facility] INFLUENZA, SEASONAL, INJECTABLE 2018 141 complet ed [facility] ZOSTER RECOMBINANT 2017 187 complet ed HISTORICA L INFORMATI ON - FROM OTHER REGISTRY, [facility] zoster recombinant 2017 ANN, () Not Given zoster recombina nt DoD INFLUENZA, INJECTABLE, QUADRIVALENT, PRESERVATIVE FREE 2017 150 complet ed HISTORICA L INFORMATI ON - FROM OTHER REGISTRY, [facility] ZOSTER RECOMBINANT 2017 187 complet ed HISTORICA L INFORMATI ON - FROM OTHER REGISTRY, [facility] INFLUENZA, SEASONAL, INJECTABLE 2017 141 complet ed [facility] ZOSTER LIVE 2016 121 complet ed [id number] [facility] INFLUENZA, SEASONAL, INJECTABLE, PRESERVATIVE FREE 2016 140 complet ed [facility] INFLUENZA, SEASONAL, INJECTABLE, PRESERVATIVE FREE 2015 140 complet ed [facility] INFLUENZA, SEASONAL, INJECTABLE, PRESERVATIVE FREE 2014 140 complet ed HISTORICA L INFORMATI ON - FROM OTHER REGISTRY, [facility] INFLUENZA, SEASONAL, INJECTABLE 2014 141 complet ed [facility] INFLUENZA, SEASONAL, INJECTABLE 2013 141 complet ed HISTORICA L INFORMATI ON - FROM OTHER REGISTRY, [facility] INFLUENZA, SEASONAL, INJECTABLE 2013 141 complet ed private [facility] INFLUENZA, UNSPECIFIED FORMULATION 2012 88 complet ed [facility] PNEUMOCOCCAL, UNSPECIFIED FORMULATION 2012 109 complet ed [id number];[id number];0612/2013 [facility] INFLUENZA, UNSPECIFIED FORMULATION 2011 88 complet ed [facility] tuberculin skin test; purified protein derivative solution, intradermal 1 2011 KARMA FERNANDEZ [id number] 96 Sanofi Pasteur (PMC) complet ed tuberculi n skin test; purified protein derivativ e solution, intraderm al [facility] influenza virus vaccine, live, attenuated, for intranasal use 1 2011 KARMA FERNANDEZ [id number] 111 [employer]. (MED) complet influenza virus vaccine, live, attenuate d, for intranasa l use [facility] varicella virus vaccine 1 2010 UNK 21 Unknown (UNK) Not Given varicella virus vaccine [facility] anthrax vaccine 4 2010 [id number] [employer] ([facility]) complet ed anthrax vaccine [facility] typhoid Vi capsular polysaccharid e vaccine 1 2010 [id number] Sanofi Pasteur (PMC) complet ed typhoid Vi capsular polysacch aride vaccine DoD Influenza, seasonal, injectable, preservative free 1 2010 [id number] 140 [employer] (CSL) complet ed Influenza , seasonal, injectabl e, preservat rock free DoD influenza virus vaccine, split virus (incl. purified surface antigen)-reti red CODE 1 2009 UNK 15 Unknown (UNK) comple t ed influenza virus vaccine, split virus (incl. purified surface antigen)- retired CODE [facility] hepatitis A vaccine, adult dosage 3 2009 [id number] [employer] (SKB) complet ed hepatitis A vaccine, adult dosage [facility] Novel influenza-H1N 1-09, injectable 1 2008 [id number] 127 Unknown (UNK) complet ed Novel influenza -[id number], injectabl e [facility] INFLUENZA, UNSPECIFIED FORMULATION 2008 88 complet ed [facility] NOVEL INFLUENZA-H1N 1-09, ALL FORMULATIONS 2008 128 complet ed [facility] TDAP 2008 115 complet ed [place] [facility] tetanus and diphtheria toxoids, adsorbed, preservative free, for adult use (2 Lf of tetanus toxoid and 2 Lf of diphtheria toxoid) 1 2008 [id number] Unknown (UNK) comple t ed tetanus and diphtheri a toxoids, adsorbed, preservat rock free, for adult use (2 Lf of tetanus toxoid and 2 Lf of diphtheri a toxoid) DoD anthrax vaccine 3 2008 [id number] Unknown (UNK) comple t ed anthrax vaccine DoD influenza virus vaccine, unspecified formulation 1 2008 [id number] 88 Unknown (UNK) comple t ed influenza virus vaccine, unspecifi ed formulati on DoD anthrax vaccine 2 2008 [id number] [employer] [facility] ([facility]) complet ed anthrax vaccine DoD anthrax vaccine 1 2008 UNK 24 Miles (MIL) complet ed anthrax vaccine DoD typhoid Vi capsular polysaccharid e vaccine 1 2008 [id number] [employer] P[employer] ([facility]) complet ed typhoid [...] TD(ADULT) UNSPECIFIED FORMULATION 2004 139 complet ed [facility] hepatitis B vaccine, adult dosage 1 2004 UNK 43 Unknown (UNK) comple t ed hepatitis B vaccine, adult dosage DoD hepatitis A vaccine, adult dosage 1 2004 [id number] Unknown (UNK) comple t ed hepatitis A vaccine, adult dosage DoD vaccinia (smallpox) vaccine 1 2004 [id number] Unknown (UNK) comple t ed vaccinia [...] meningococcal polysaccharid e vaccine (MPSV4) 1 2003 [id number] Unknown (UNK) comple t ed meningoco ccal polysacch aride vaccine (MPSV4) DoD typhoid Vi capsular polysaccharid e vaccine 1 2003 R2222-1 101 Unknown (UNK) comple t ed typhoid [...] Reference Range Date Interpretation Specimen Comments Source DRUG SCREEN PANEL, SEMI-ANT T URINE AMPHETAMINE S CUTOFF [MASS/VOLUM E] IN URINE FOR SCREEN METHOD Negative 11/06 Specimen Type: URINE Comment: Screening results should not be used for non-medical purposes Ordering Provider: BILL OMALLEY Report Released Date/Time: Nov 07, 2023 01:33 AM Reporting Lab: [address] Performing Lab: [address] [facility] ([place]) DRUG SCREEN PANEL, SEMI-ANT T URINE BARBITURATE S [MASS/VOLUM E] IN URINE BY SCREEN METHOD Negative 11/06 Specimen Type: URINE Comment: Screening results should not be used for non-medical purposes Ordering Provider: BILL OMALLEY Report Released Date/Time: Nov 07, 2023 01:33 AM Reporting Lab: [address] Performing Lab: [address] [employer] ([place]) DRUG SCREEN PANEL, SEMI-ANT T URINE BENZODIAZEP RUPAL [MASS/VOLUM E] IN URINE Negative 11/06 Specimen Type: URINE Comment: Screening results should not be used for non-medical purposes Ordering Provider: BILL OMALLEY Report Released Date/Time: Nov 07, 2023 01:33 AM Reporting Lab: [address] Performing Lab: [address] . [facility] (DOM) DRUG SCREEN PANEL, SEMI-ANT T URINE CANNABINOID S CUTOFF [MASS/VOLUM E] IN URINE FOR SCREEN METHOD Negative 11/06 Specimen Type: URINE Comment: Screening results should not be used for non-medical purposes Ordering Provider: BILL OMALLEY Report Released Date/Time: Nov 07, 2023 01:33 AM Reporting Lab: [address] Performing Lab: [address] [facility] ([place]) DRUG SCREEN PANEL, SEMI-ANT T URINE COCAINE CUTOFF [MASS/VOLUM E] IN URINE FOR SCREEN METHOD Negative 11/06 Specimen Type: URINE Comment: Screening results should not be used for non-medical purposes Ordering Provider: BILL OMALLEY Report Released Date/Time: Nov 07, 2023 01:33 AM Reporting Lab: [address] Performing Lab: [address] [facility] ([place]) DRUG SCREEN PANEL, SEMI-ANT T URINE METHADONE [MASS/VOLUM E] IN URINE Negative 11/06 Specimen Type: URINE Comment: Screening results should not be used for non-medical purposes Ordering Provider: BILL OMALLEY Report Released Date/Time: Nov 07, 2023 01:33 AM Reporting Lab: [address] Performing Lab: [address] [facility] ([facility]) DRUG SCREEN PANEL, SEMI-ANT T URINE OPIATES [MASS/VOLUM E] IN URINE Negative 11/06 Specimen Type: URINE Comment: Screening results should not be used for non-medical purposes Ordering Provider: BILL OMALLEY Report Released Date/Time: Nov 07, 2023 01:33 AM Reporting Lab: [address] Performing Lab: [address] [facility] ([facility]) DRUG SCREEN PANEL, SEMI-ANT T URINE OXYCODONE [MASS/VOLUM E] IN URINE Negative 11/06 Specimen Type: URINE Comment: Screening results should not be used for non-medical purposes Ordering Provider: BILL OMALLEY Report Released Date/Time: Nov 07, 2023 01:33 AM Reporting Lab: [address] Performing Lab: [address] [facility] ([place]) DRUG SCREEN PANEL, SEMI-ANT T URINE ETHANOL [MASS/VOLUM E] IN URINE Negative 11/06 Specimen Type: URINE Comment: Screening results should not be used for non-medical purposes Ordering Provider: BILL OMALLEY Report Released Date/Time: Nov 07, 2023 01:33 AM Reporting Lab: [address] Performing Lab: [address] [facility] ([place]) DRUG SCREEN PANEL, SEMI-ANT T URINE CREATININE [MASS/VOLUM E] IN URINE 48.6 mg/dL 20 11/06 Specimen Type: URINE Comment: Screening results should not be used for non-medical purposes Ordering Provider: BILL OMALLEY Report Released Date/Time: Nov 07, 2023 01:33 AM Reporting Lab: [address] Performing Lab: [address] [facility] ([place]) DRUG SCREEN PANEL, SEMI-ANT T URINE TRAMADOL [PRESENCE] IN URINE BY SCREEN METHOD Negative 11/06 Specimen Type: URINE Comment: Screening results should not be used for non-medical purposes Ordering Provider: BILL OMALLEY Report Released Date/Time: Nov 07, 2023 01:33 AM Reporting Lab: [address] Performing Lab: [address] [facility] ([place]) DRUG SCREEN PANEL, SEMI-ANT T URINE FENTANYL [PRESENCE] IN URINE Negative 11/06 Specimen Type: URINE Comment: Screening results should not be used for non-medical purposes Ordering Provider: BILL OMALLEY Report Released Date/Time: Nov 07, 2023 01:33 AM Reporting Lab: [address] Performing Lab: [address] [facility] ([place]) DRUG SCREEN PANEL, SEMI-ANT T URINE PHENCYCLIDI NE [PRESENCE] IN URINE BY SCREEN METHOD Negative 11/06 Specimen Type: URINE Comment: Screening results should not be used for non-medical purposes Ordering Provider: BILL OMALLEY Report Released Date/Time: Nov 07, 2023 01:33 AM Reporting Lab: [address] Performing Lab: [address] [facility] ([place]) DRUG SCREEN PANEL, SEMI-ANT T URINE AMPHETAMINE S CUTOFF [MASS/VOLUM E] IN URINE FOR SCREEN METHOD Negative 11/02 Specimen Type: URINE Comment: Screening results should not be used for non-medical purposes Ordering Provider: BILL OMALLEY Report Released Date/Time: Nov 03, 2023 12:44 AM Reporting Lab: [address] Performing Lab: [address] [facility] ([facility]) DRUG SCREEN PANEL, SEMI-ANT T URINE BARBITURATE S [MASS/VOLUM E] IN URINE BY SCREEN METHOD Negative 11/02 Specimen Type: URINE Comment: Screening results should not be used for non-medical purposes Ordering Provider: BILL OMALLEY Report Released Date/Time: Nov 03, 2023 12:44 AM Reporting Lab: [address] Performing Lab: [address] [facility] ([facility]) DRUG SCREEN PANEL, SEMI-ANT T URINE BENZODIAZEP RUPAL [MASS/VOLUM E] IN URINE Negative 11/02 Specimen Type: URINE Comment: Screening results should not be used for non-medical purposes Ordering Provider: BILL OMALLEY Report Released Date/Time: Nov 03, 2023 12:44 AM Reporting Lab: [address] Performing Lab: [address] [facility] ([place]) DRUG SCREEN PANEL, SEMI-ANT T URINE CANNABINOID S CUTOFF [MASS/VOLUM E] IN URINE FOR SCREEN METHOD Negative 11/02 Specimen Type: URINE Comment: Screening results should not be used for non-medical purposes Ordering Provider: BILL OMALLEY Report Released Date/Time: Nov 03, 2023 12:44 AM Reporting Lab: [address] Performing Lab: [address] [facility] ([facility]) DRUG SCREEN PANEL, SEMI-ANT T URINE COCAINE CUTOFF [MASS/VOLUM E] IN URINE FOR SCREEN METHOD Negative 11/02 Specimen Type: URINE Comment: Screening results should not be used for non-medical purposes Ordering Provider: BILL OMALLEY Report Released Date/Time: Nov 03, 2023 12:44 AM Reporting Lab: [address] Performing Lab: [address] [facility] ([place]) DRUG SCREEN PANEL, SEMI-ANT T URINE METHADONE [MASS/VOLUM E] IN URINE Negative 11/02 Specimen Type: URINE Comment: Screening results should not be used for non-medical purposes Ordering Provider: BILL OMALLEY Report Released Date/Time: Nov 03, 2023 12:44 AM Reporting Lab: [address] Performing Lab: [address] [facility] ([place]) DRUG SCREEN PANEL, SEMI-ANT T URINE OPIATES [MASS/VOLUM E] IN URINE Negative 11/02 Specimen Type: URINE Comment: Screening results should not be used for non-medical purposes Ordering Provider: BILL OMALLEY Report Released Date/Time: Nov 03, 2023 12:44 AM Reporting Lab: [address] Performing Lab: [address] [facility] ([place]) DRUG SCREEN PANEL, SEMI-ANT T URINE OXYCODONE [MASS/VOLUM E] IN URINE Negative 11/02 Specimen Type: URINE Comment: Screening results should not be used for non-medical purposes Ordering Provider: BILL OMALLEY Report Released Date/Time: Nov 03, 2023 12:44 AM Reporting Lab: [address] Performing Lab: [address] [facility] ([place]) DRUG SCREEN PANEL, SEMI-ANT T URINE ETHANOL [MASS/VOLUM E] IN URINE Negative 11/02 Specimen Type: URINE Comment: Screening results should not be used for non-medical purposes Ordering Provider: BILL OMALLEY Report Released Date/Time: Nov 03, 2023 12:44 AM Reporting Lab: [address] Performing Lab: [address] . [facility] ([place]) DRUG SCREEN PANEL, SEMI-ANT T URINE CREATININE [MASS/VOLUM E] IN URINE 121.8 mg/dL 20 11/02 Specimen Type: URINE Comment: Screening results should not be used for non-medical purposes Ordering Provider: BILL OMALLEY Report Released Date/Time: Nov 03, 2023 12:44 AM Reporting Lab: [address] Performing Lab: [address] [facility] ([place]) DRUG SCREEN PANEL, SEMI-ANT T URINE TRAMADOL [PRESENCE] IN URINE BY SCREEN METHOD Negative 11/02 Specimen Type: URINE Comment: Screening results should not be used for non-medical purposes Ordering Provider: BILL OMALLEY Report Released Date/Time: Nov 03, 2023 12:44 AM Reporting Lab: [address] Performing Lab: [address] . [facility] ([place]) DRUG SCREEN PANEL, SEMI-ANT T URINE FENTANYL [PRESENCE] IN URINE Negative 11/02 Specimen Type: URINE Comment: Screening results should not be used for non-medical purposes Ordering Provider: BILL OMALLEY Report Released Date/Time: Nov 03, 2023 12:44 AM Reporting Lab: [address] Performing Lab: [address] . [facility] ([place]) DRUG SCREEN PANEL, SEMI-ANT T URINE PHENCYCLIDI NE [PRESENCE] IN URINE BY SCREEN METHOD Negative 11/02 Specimen Type: URINE Comment: Screening results should not be used for non-medical purposes Ordering Provider: BILL OMALLEY Report Released Date/Time: Nov 03, 2023 12:44 AM Reporting Lab: [address] Performing Lab: [address] . [facility] ([place]) DRUG SCREEN PANEL, SEMI-ANT T URINE AMPHETAMINE S CUTOFF [MASS/VOLUM E] IN URINE FOR SCREEN METHOD Negative 10/23 Specimen Type: URINE Comment: Screening results should not be used for non-medical purposes Ordering Provider: BILL OMALLEY Report Released Date/Time: Oct 24, 2023 12:57 AM Reporting Lab: [address] Performing Lab: [address] [facility] ([place]) DRUG SCREEN PANEL, SEMI-ANT T URINE BARBITURATE S [MASS/VOLUM E] IN URINE BY SCREEN METHOD Negative 10/23 Specimen Type: URINE Comment: Screening results should not be used for non-medical purposes Ordering Provider: BILL OMALLEY Report Released Date/Time: Oct 24, 2023 12:57 AM Reporting Lab: [address] Performing Lab: [address] [facility] ([place]) DRUG SCREEN PANEL, SEMI-ANT T URINE BENZODIAZEP RUPAL [MASS/VOLUM E] IN URINE Negative 10/23 Specimen Type: URINE Comment: Screening results should not be used for non-medical purposes Ordering Provider: BILL OMALLEY Report Released Date/Time: Oct 24, 2023 12:57 AM Reporting Lab: [address] Performing Lab: [address] [facility] ([facility]) DRUG SCREEN PANEL, SEMI-ANT T URINE CANNABINOID S CUTOFF [MASS/VOLUM E] IN URINE FOR SCREEN METHOD Negative 10/23 Specimen Type: URINE Comment: Screening results should not be used for non-medical purposes Ordering Provider: BILL OMALLEY Report Released Date/Time: Oct 24, 2023 12:57 AM Reporting Lab: [address] Performing Lab: [address] [facility] ([place]) DRUG SCREEN PANEL, SEMI-ANT T URINE COCAINE CUTOFF [MASS/VOLUM E] IN URINE FOR SCREEN METHOD Negative 10/23 Specimen Type: URINE Comment: Screening results should not be used for non-medical purposes Ordering Provider: BILL OMALLEY Report Released Date/Time: Oct 24, 2023 12:57 AM Reporting Lab: [address] Performing Lab: [address] [facility] ([place]) DRUG SCREEN PANEL, SEMI-ANT T URINE METHADONE [MASS/VOLUM E] IN URINE Negative 10/23 Specimen Type: URINE Comment: Screening results should not be used for non-medical purposes Ordering Provider: BILL OMALLEY Report Released Date/Time: Oct 24, 2023 12:57 AM Reporting Lab: [address] Performing Lab: [address] [facility] ([place]) DRUG SCREEN PANEL, SEMI-ANT T URINE OPIATES [MASS/VOLUM E] IN URINE Negative 10/23 Specimen Type: URINE Comment: Screening results should not be used for non-medical purposes Ordering Provider: BILL OMALLEY Report Released Date/Time: Oct 24, 2023 12:57 AM Reporting Lab: [address] Performing Lab: [address] [facility] ([place]) DRUG SCREEN PANEL, SEMI-ANT T URINE OXYCODONE [MASS/VOLUM E] IN URINE Negative 10/23 Specimen Type: URINE Comment: Screening results should not be used for non-medical purposes Ordering Provider: BILL OMALLEY Report Released Date/Time: Oct 24, 2023 12:57 AM Reporting Lab: [address] Performing Lab: [address] [facility] ([place]) DRUG SCREEN PANEL, SEMI-ANT T URINE ETHANOL [MASS/VOLUM E] IN URINE Negative 10/23 Specimen Type: URINE Comment: Screening results should not be used for non-medical purposes Ordering Provider: BILL OMALLEY Report Released Date/Time: Oct 24, 2023 12:57 AM Reporting Lab: [address] Performing Lab: [address] [facility] ([place]) DRUG SCREEN PANEL, SEMI-ANT T URINE CREATININE [MASS/VOLUM E] IN URINE 64.7 mg/dL 20 10/23 Specimen Type: URINE Comment: Screening results should not be used for non-medical purposes Ordering Provider: BILL OMALLEY Report Released Date/Time: Oct 24, 2023 12:57 AM Reporting Lab: [address] Performing Lab: [address] [facility] ([place]) DRUG SCREEN PANEL, SEMI-ANT T URINE TRAMADOL [PRESENCE] IN URINE BY SCREEN METHOD Negative 10/23 Specimen Type: URINE Comment: Screening results should not be used for non-medical purposes Ordering Provider: BILL OMALLEY Report Released Date/Time: Oct 24, 2023 12:57 AM Reporting Lab: [address] Performing Lab: [address] [facility] ([place]) DRUG SCREEN PANEL, SEMI-ANT T URINE FENTANYL [PRESENCE] IN URINE Negative 10/23 Specimen Type: URINE Comment: Screening results should not be used for non-medical purposes Ordering Provider: BILL OMALLEY Report Released Date/Time: Oct 24, 2023 12:57 AM Reporting Lab: [address] Performing Lab: [address] [facility] ([place]) DRUG SCREEN PANEL, SEMI-ANT T URINE PHENCYCLIDI NE [PRESENCE] IN URINE BY SCREEN METHOD Negative 10/23 Specimen Type: URINE Comment: Screening results should not be used for non-medical purposes Ordering Provider: BILL OMALLEY Report Released Date/Time: Oct 24, 2023 12:57 AM Reporting Lab: [address] Performing Lab: [address] [facility] ([place]) DRUG SCREEN PANEL, SEMI-ANT T URINE AMPHETAMINE S CUTOFF [MASS/VOLUM E] IN URINE FOR SCREEN METHOD Negative 10/17 Specimen Type: URINE Comment: Screening results should not be used for non-medical purposes Ordering Provider: BILL OMALLEY Report Released Date/Time: Oct 18, 2023 12:58 AM Reporting Lab: [address] Performing Lab: [address] [facility] ([place]) DRUG SCREEN PANEL, SEMI-ANT T URINE BARBITURATE S [MASS/VOLUM E] IN URINE BY SCREEN METHOD Negative 10/17 Specimen Type: URINE Comment: Screening results should not be used for non-medical purposes Ordering Provider: BILL OMALLEY Report Released Date/Time: Oct 18, 2023 12:58 AM Reporting Lab: [address] Performing Lab: [address] [facility] ([place]) DRUG SCREEN PANEL, SEMI-ANT T URINE BENZODIAZEP RUPAL [MASS/VOLUM E] IN URINE Negative 10/17 Specimen Type: URINE Comment: Screening results should not be used for non-medical purposes Ordering Provider: BILL OMALLEY Report Released Date/Time: Oct 18, 2023 12:58 AM Reporting Lab: [address] Performing Lab: [address] [facility] ([place]) DRUG SCREEN PANEL, SEMI-ANT T URINE CANNABINOID S CUTOFF [MASS/VOLUM E] IN URINE FOR SCREEN METHOD Negative 10/17 Specimen Type: URINE Comment: Screening results should not be used for non-medical purposes Ordering Provider: BILL OMALLEY Report Released Date/Time: Oct 18, 2023 12:58 AM Reporting Lab: [address] Performing Lab: [address] [facility] ([place]) DRUG SCREEN PANEL, SEMI-ANT T URINE COCAINE CUTOFF [MASS/VOLUM E] IN URINE FOR SCREEN METHOD Negative 10/17 Specimen Type: URINE Comment: Screening results should not be used for non-medical purposes Ordering Provider: BILL OMALLEY Report Released Date/Time: Oct 18, 2023 12:58 AM Reporting Lab: [address] Performing Lab: [address] . [facility] ([place]) DRUG SCREEN PANEL, SEMI-ANT T URINE METHADONE [MASS/VOLUM E] IN URINE Negative 10/17 Specimen Type: URINE Comment: Screening results should not be used for non-medical purposes Ordering Provider: BILL OMALLEY Report Released Date/Time: Oct 18, 2023 12:58 AM Reporting Lab: [address] Performing Lab: [address] . [facility] ([place]) DRUG SCREEN PANEL, SEMI-ANT T URINE OPIATES [MASS/VOLUM E] IN URINE Negative 10/17 Specimen Type: URINE Comment: Screening results should not be used for non-medical purposes Ordering Provider: BILL OMALLEY Report Released Date/Time: Oct 18, 2023 12:58 AM Reporting Lab: [address] Performing Lab: [address] . [facility] ([place]) DRUG SCREEN PANEL, SEMI-ANT T URINE OXYCODONE [MASS/VOLUM E] IN URINE Negative 10/17 Specimen Type: URINE Comment: Screening results should not be used for non-medical purposes Ordering Provider: BILL OMALLEY Report Released Date/Time: Oct 18, 2023 12:58 AM Reporting Lab: [address] Performing Lab: [address] . [facility] ([place]) DRUG SCREEN PANEL, SEMI-ANT T URINE ETHANOL [MASS/VOLUM E] IN URINE Negative 10/17 Specimen Type: URINE Comment: Screening results should not be used for non-medical purposes Ordering Provider: BILL OMALLEY Report Released Date/Time: Oct 18, 2023 12:58 AM Reporting Lab: [address] Performing Lab: [address] [facility] ([place]) DRUG SCREEN PANEL, SEMI-ANT T URINE CREATININE [MASS/VOLUM E] IN URINE 154.9 mg/dL 20 10/17 Specimen Type: URINE Comment: Screening results should not be used for non-medical purposes Ordering Provider: BILL OMALLEY Report Released Date/Time: Oct 18, 2023 12:58 AM Reporting Lab: [address] Performing Lab: [address] [facility] ([place]) DRUG SCREEN PANEL, SEMI-ANT T URINE TRAMADOL [PRESENCE] IN URINE BY SCREEN METHOD Negative 10/17 Specimen Type: URINE Comment: Screening results should not be used for non-medical purposes Ordering Provider: BILL OMALLEY Report Released Date/Time: Oct 18, 2023 12:58 AM Reporting Lab: [address] Performing Lab: [address] [facility] DRUG SCREEN PANEL, SEMI-ANT T URINE FENTANYL [PRESENCE] IN URINE Negative 10/17 Specimen Type: URINE Comment: Screening results should not be used for non-medical purposes Ordering Provider: BILL OMALLEY Report Released Date/Time: Oct 18, 2023 12:58 AM Reporting Lab: [address] Performing Lab: [address] [facility] ([facility]) DRUG SCREEN PANEL, SEMI-ANT T URINE PHENCYCLIDI NE [PRESENCE] IN URINE BY SCREEN METHOD Negative 10/17 Specimen Type: URINE Comment: Screening results should not be used for non-medical purposes Ordering Provider: BILL OMALLEY Report Released Date/Time: Oct 18, 2023 12:58 AM Reporting Lab: [address] Performing Lab: [address] [facility] ([place]) MAGNESIUM MAGNESIUM [MASS/VOLUM E] IN SERUM OR PLASMA 1.6 mg/dL 1.6 - 2.6 10/17 Specimen Type: PLASMA No comment entered. Ordering Provider: BILL OMALLEY Report Released Date/Time: October 13, 2023 09:48 AM Reporting Lab: [address] Performing Lab: [address] [facility] ([place]) CBC ([id number]) IMMATURE GRANULOCYTE S/100 LEUKOCYTES IN BLOOD 0.5 <0.6 - 0.6 10/12 Specimen Type: BLOOD No comment entered. Ordering Provider: BILL OMALLEY Report Released Date/Time: October 12, 2023 03:25 PM Reporting Lab: [address] Performing Lab: [address] [facility] ([place]) CBC ([id number]) IMMATURE GRANULOCYTE S [#/VOLUME] IN BLOOD 0.04 10*3/uL <0.10 - 0.10 10/12 Specimen Type: BLOOD No comment entered. Ordering Provider: BILL OMALLEY Report Released Date/Time: October 12, 2023 03:25 PM Reporting Lab: [address] Performing Lab: [address] [facility] ([place]) CBC ([id number]) LEUKOCYTES [#/VOLUME] IN BLOOD BY AUTOMATED COUNT 7.62 10*3/uL 4.0 - 11.0 10/12 Specimen Type: BLOOD No comment entered. Ordering Provider: BILL OMALLEY Report Released Date/Time: October 12, 2023 03:25 PM Reporting Lab: [address] Performing Lab: [address] [facility] ([place]) CBC ([id number]) ERYTHROCYTE S [#/VOLUME] IN BLOOD BY AUTOMATED COUNT 3.77 10*6/uL 4.6 - 6.2 10/12 L Specimen Type: BLOOD No comment entered. Ordering Provider: BILL OMALLEY Report Released Date/Time: October 12, 2023 03:25 PM Reporting Lab: [address] Performing Lab: [address] [facility] ([place]) CBC ([id number]) HEMOGLOBIN [MASS/VOLUM E] IN BLOOD 13.0 g/dL 13.5 - 17.9 10/12 L Specimen Type: BLOOD No comment entered. Ordering Provider: BILL OMALLEY Report Released Date/Time: October 12, 2023 03:25 PM Reporting Lab: [address] Performing Lab: [address] [facility] ([place]) CBC ([id number]) HEMATOCRIT [VOLUME FRACTION] OF BLOOD BY AUTOMATED COUNT 38.5 41.0 - 54.0 10/12 L Specimen Type: BLOOD No comment entered. Ordering Provider: BILL OMALLEY Report Released Date/Time: October 12, 2023 03:25 PM Reporting Lab: [address] Performing Lab: [address] [facility] CBC ([id number]) MCV [ENTITIC VOLUME] BY AUTOMATED COUNT 102.1 fL 80.0 - 100.0 10/12 H Specimen Type: BLOOD No comment entered. Ordering Provider: BILL OMALLEY Report Released Date/Time: October 12, 2023 03:25 PM Reporting Lab: [address] Performing Lab: [address] [facility] ([place]) CBC ([id number]) MCH [ENTITIC MASS] BY AUTOMATED COUNT 34.5 pg 27.0 - 33.0 10/12 H Specimen Type: BLOOD No comment entered. Ordering Provider: BILL OMALLEY Report Released Date/Time: October 12, 2023 03:25 PM Reporting Lab: [address] Performing Lab: [address] [facility] ([place]) CBC ([id number]) MCHC [MASS/VOLUM E] BY AUTOMATED COUNT 33.8 g/dL 32.0 - 36.5 10/12 Specimen Type: BLOOD No comment entered. Ordering Provider: BILL OMALLEY Report Released Date/Time: October 12, 2023 03:25 PM Reporting Lab: [address] Performing Lab: [address] [facility] ([place]) CBC ([id number]) PLATELETS [#/VOLUME] IN BLOOD BY AUTOMATED COUNT 269 10*3/uL 150 - 450 10/12 Specimen Type: BLOOD No comment entered. Ordering Provider: BILL OMALLEY Report Released Date/Time: October 12, 2023 03:25 PM Reporting Lab: [address] Performing Lab: [address] [facility] ([place]) CBC ([id number]) ERYTHROCYTE DISTRIBUTIO N WIDTH [RATIO] BY AUTOMATED COUNT 11.4 11.5 - 14.5 10/12 L Specimen Type: BLOOD No comment entered. Ordering Provider: BILL OMALLEY Report Released Date/Time: October 12, 2023 03:25 PM Reporting Lab: [address] Performing Lab: [address] [facility] ([place]) CBC ([id number]) PLATELET MEAN VOLUME [ENTITIC VOLUME] IN BLOOD BY AUTOMATED COUNT 9.0 fL 9.4 - 12.4 10/12 L Specimen Type: BLOOD No comment entered. Ordering Provider: BILL OMALLEY Report Released Date/Time: October 12, 2023 03:25 PM Reporting Lab: [address] Performing Lab: [address] [facility] ([place]) CBC ([id number]) LYMPHOCYTES /100 LEUKOCYTES IN BLOOD BY AUTOMATED COUNT 39.5 15.0 - 45.0 10/12 Specimen Type: BLOOD No comment entered. Ordering Provider: BILL OMALLEY Report Released Date/Time: October 12, 2023 03:25 PM Reporting Lab: [address] Performing Lab: [address] [facility] ([place] CBC ([id number]) LYMPHOCYTES [#/VOLUME] IN BLOOD BY AUTOMATED COUNT 3.01 10*3/uL 1.00 - 4.00 10/12 Specimen Type: BLOOD No comment entered. Ordering Provider: BILL OMALLEY Report Released Date/Time: October 12, 2023 03:25 PM Reporting Lab: [address] Performing Lab: [address] [facility] ([place]) CBC ([id number]) MONOCYTES/1 00 LEUKOCYTES IN BLOOD BY AUTOMATED COUNT 6.7 2.0 - 12.0 10/12 Specimen Type: BLOOD No comment entered. Ordering Provider: BILL OMALLEY Report Released Date/Time: October 12, 2023 03:25 PM Reporting Lab: [address] Performing Lab: [address] [facility] ([facility]) CBC ([id number]) MONOCYTES [#/VOLUME] IN BLOOD BY AUTOMATED COUNT 0.51 10*3/uL 0.10 - 1.00 10/12 Specimen Type: BLOOD No comment entered. Ordering Provider: BILL OMALLEY Report Released Date/Time: October 12, 2023 03:25 PM Reporting Lab: [address] Performing Lab: [address] [facility] ([facility]) CBC ([id number]) EOSINOPHILS /100 LEUKOCYTES IN BLOOD BY AUTOMATED COUNT 4.6 <6.0 - 6.0 10/12 Specimen Type: BLOOD No comment entered. Ordering Provider: BILL OMALLEY Report Released Date/Time: October 12, 2023 03:25 PM Reporting Lab: [address] Performing Lab: [address] [facility] ([place]) CBC ([id number]) EOSINOPHILS [#/VOLUME] IN BLOOD BY AUTOMATED COUNT 0.35 10*3/uL <0.50 - 0.50 10/12 Specimen Type: BLOOD No comment entered. Ordering Provider: BILL OMALLEY Report Released Date/Time: October 12, 2023 03:25 PM Reporting Lab: [address] Performing Lab: [address] [facility] ([place]) CBC ([id number]) BASOPHILS/1 00 LEUKOCYTES IN BLOOD BY AUTOMATED COUNT 1.0 <2.0 - 2.0 10/12 Specimen Type: BLOOD No comment entered. Ordering Provider: BILL OMALLEY Report Released Date/Time: October 12, 2023 03:25 PM Reporting Lab: [address] Performing Lab: [address] [facility] ([place]) CBC ([id number]) BASOPHILS [#/VOLUME] IN BLOOD BY AUTOMATED COUNT 0.08 10*3/uL <0.20 - 0.20 10/12 Specimen Type: BLOOD No comment entered. Ordering Provider: BILL OMALLEY Report Released Date/Time: October 12, 2023 03:25 PM Reporting Lab: [address] Performing Lab: [address] [facility] ([place]) CBC ([id number]) NEUTROPHILS /100 LEUKOCYTES IN BLOOD BY AUTOMATED COUNT 47.7 40.0 - 80.0 10/12 Specimen Type: BLOOD No comment entered. Ordering Provider: BILL OMALLEY Report Released Date/Time: October 12, 2023 03:25 PM Reporting Lab: [address] Performing Lab: [address] [facility] ([place]) CBC ([id number]) NEUTROPHILS [#/VOLUME] IN BLOOD BY AUTOMATED COUNT 3.63 10*3/uL 2.00 - 7.70 10/12 Specimen Type: BLOOD No comment entered. Ordering Provider: BILL OMALLEY Report Released Date/Time: October 12, 2023 03:25 PM Reporting Lab: [address] Performing Lab: [address] [facility] ([place]) CBC ([id number]) NUCLEATED ERYTHROCYTE S/100 LEUKOCYTES [RATIO] IN BLOOD BY AUTOMATED COUNT 0.0 <0 - 0 10/12 Specimen Type: BLOOD No comment entered. Ordering Provider: BILL OMALLEY Report Released Date/Time: October 12, 2023 03:25 PM Reporting Lab: [address] Performing Lab: [address] [facility] ([facility]) HEPATIC PANEL PROTEIN [MASS/VOLUM E] IN SERUM OR PLASMA 6.3 g/dL 6.0 - 8.2 10/12 Specimen Type: PLASMA Comment: Glucose results >300 mg/dL OR Total Protein >10 g/dL may interfere with Creatinine result Ordering Provider: BILL OMALLEY Report Released Date/Time: October 12, 2023 03:25 PM Reporting Lab: [address] Performing Lab: [address] [facility] ([facility]) HEPATIC PANEL ALBUMIN [MASS/VOLUM E] IN SERUM OR PLASMA 3.2 g/dL 3.5 - 5.0 10/12 L Specimen Type: PLASMA Comment: Glucose results >300 mg/dL OR Total Protein >10 g/dL may interfere with Creatinine result Ordering Provider: BILL OMALLEY Report Released Date/Time: October 12, 2023 03:25 PM Reporting Lab: [address] Performing Lab: [address] [facility] ([facility]) HEPATIC PANEL BILIRUBIN.T OTAL [MASS/VOLUM E] IN SERUM OR PLASMA 0.5 mg/dL 0.1 - 1.5 10/12 Specimen Type: PLASMA Comment: Glucose results >300 mg/dL OR Total Protein >10 g/dL may interfere with Creatinine result Ordering Provider: BILL OMALLEY Report Released Date/Time: October 12, 2023 03:25 PM Reporting Lab: [address] Performing Lab: [address] [facility] ([place]) HEPATIC PANEL BILIRUBIN.D IRECT [MASS/VOLUM E] IN SERUM OR PLASMA 0.2 mg/dL 0.0 - 0.5 10/12 Specimen Type: PLASMA Comment: Glucose results >300 mg/dL OR Total Protein >10 g/dL may interfere with Creatinine result Ordering Provider: BILL OMALLEY Report Released Date/Time: October 12, 2023 03:25 PM Reporting Lab: [address] Performing Lab: [address] [facility] ([facility]) HEPATIC PANEL ALKALINE PHOSPHATASE [ENZYMATIC ACTIVITY/VO LUME] IN SERUM OR PLASMA 107 U/L 40 - 134 10/12 Specimen Type: PLASMA Comment: Glucose results >300 mg/dL OR Total Protein >10 g/dL may interfere with Creatinine result Ordering Provider: BILL OMALLEY Report Released Date/Time: October 12, 2023 03:25 PM Reporting Lab: [address] Performing Lab: [address] [facility] ([facility]) HEPATIC PANEL ASPARTATE AMINOTRANSF ERASE [ENZYMATIC ACTIVITY/VO LUME] IN SERUM OR PLASMA 22 U/L 5 - 40 10/12 Specimen Type: PLASMA Comment: Glucose results >300 mg/dL OR Total Protein >10 g/dL may interfere with Creatinine result Ordering Provider: BILL OMALLEY Report Released Date/Time: October 12, 2023 03:25 PM Reporting Lab: [address] Performing Lab: [address] [facility] ([facility]) HEPATIC PANEL ALANINE AMINOTRANSF ERASE [ENZYMATIC ACTIVITY/VO LUME] IN SERUM OR PLASMA 19 U/L 0 - 55 10/12 Specimen Type: PLASMA Comment: Glucose results >300 mg/dL OR Total Protein >10 g/dL may interfere with Creatinine result Ordering Provider: BILL OMALLEY Report Released Date/Time: October 12, 2023 03:25 PM Reporting Lab: [address] Performing Lab: [address] [facility] MAGNESIUM MAGNESIUM [MASS/VOLUM E] IN SERUM OR PLASMA 1.3 mg/dL 1.6 - 2.6 10/12 L Specimen Type: PLASMA Comment: Glucose results >300 mg/dL OR Total Protein >10 g/dL may interfere with Creatinine result Ordering Provider: BILL OMALLEY Report Released Date/Time: October 12, 2023 03:25 PM Reporting Lab: [address] Performing Lab: [address] [facility] ([place]) QFTB-PANE L MYCOBACTERI UM TUBERCULOSI S STIMULATED GAMMA INTERFERON [INTERPRETA TION] IN BLOOD QUALITATIVE 0.04 [IU]/mL 10/12 Specimen Type: PLASMA Comment: A NEGATIVE result does not preclude the possibility of M. tuberculosi s infection or tuberculosi s disease. A false-negat rock results can be due to the stage of infection (e.g., specimen obtained prior to the development of cellular immune response or other immunologic al variables). Testing performed on Liaison Ordering Provider: BILL OMALLEY Report Released Date/Time: October 12, 2023 03:25 PM Reporting Lab: [address] Performing Lab: [facility] [address] [facility] ([place]) QFTB-PANE L MYCOBACTERI UM TUBERCULOSI S STIMULATED GAMMA INTERFERON [INTERPRETA TION] IN BLOOD QUALITATIVE 0.05 [IU]/mL 10/12 Specimen Type: PLASMA Comment: A NEGATIVE result does not preclude the possibility of M. tuberculosi s infection or tuberculosi s disease. A false-negat rock results can be due to the stage of infection (e.g., specimen obtained prior to the development of cellular immune response or other immunologic al variables). Testing performed on Liaison Ordering Provider: BILL OMALLEY Report Released Date/Time: October 12, 2023 03:25 PM Reporting Lab: [address] Performing Lab: [facility] [address] [facility] ([place]) QFTB-PANE L MYCOBACTERI UM TUBERCULOSI S STIMULATED GAMMA INTERFERON [INTERPRETA TION] IN BLOOD QUALITATIVE 0.01 [IU]/mL 10/12 Specimen Type: PLASMA Comment: A NEGATIVE result does not preclude the possibility of M. tuberculosi s infection or tuberculosi s disease. A false-negat rock results can be due to the stage of infection (e.g., specimen obtained prior to the development of cellular immune response or other immunologic al variables). Testing performed on Liaison Ordering Provider: BILL OMALLEY Report Released Date/Time: October 12, 2023 03:25 PM Reporting Lab: [address] [address] Performing Lab: [facility] [address] [facility] ([facility]) QFTB-PANE L MYCOBACTERI UM TUBERCULOSI S STIMULATED GAMMA INTERFERON [INTERPRETA TION] IN BLOOD QUALITATIVE 9.96 [IU]/mL 10/12 Specimen Type: PLASMA Comment: A NEGATIVE result does not preclude the possibility of M. tuberculosi s infection or tuberculosi s disease. A false-negat rock results can be due to the stage of infection (e.g., specimen obtained prior to the development of cellular immune response or other immunologic al variables). Testing performed on Liaison Ordering Provider: BILL OMALLEY Report Released Date/Time: October 12, 2023 03:25 PM Reporting Lab: [address] [address] Performing Lab: [facility] [address] [facility]) QFTB-PANE L MYCOBACTERI UM TUBERCULOSI S STIMULATED GAMMA INTERFERON [INTERPRETA TION] IN BLOOD QUALITATIVE NEGATIVE 10/12 Specimen Type: PLASMA Comment: A NEGATIVE result does not preclude the possibility of M. tuberculosi s infection or tuberculosi s disease. A false-negat rock results can be due to the stage of infection (e.g., specimen obtained prior to the development of cellular immune response or other immunologic al variables). Testing performed on Liaison Ordering Provider: BILL OMALLEY Report Released Date/Time: October 12, 2023 03:25 PM Reporting Lab: [address] [address] Performing Lab: [facility] [place] [address] [facility] ([facility]) RENAL PROFILE CREATININE [MASS/VOLUM E] IN SERUM OR PLASMA 1.0 mg/dL 0.5 - 1.5 10/12 Specimen Type: PLASMA Comment: Glucose results >300 mg/dL OR Total Protein >10 g/dL may interfere with Creatinine result Ordering Provider: BILL OMALLEY Report Released Date/Time: October 12, 2023 03:25 PM Reporting Lab: [address] [address] Performing Lab: [address] [address] [facility] ([facility]) RENAL PROFILE UREA NITROGEN [MASS/VOLUM E] IN SERUM OR PLASMA 12 mg/dL 5 - 10/12 Specimen Type: PLASMA Comment: Glucose results >300 mg/dL OR Total Protein >10 g/dL may interfere with Creatinine result Ordering Provider: BILL OMALLEY Report Released Date/Time: October 12, 2023 03:25 PM Reporting Lab: [address] Performing Lab: [address] [address] [facility] ([facility]) RENAL PROFILE SODIUM [MOLES/VOLU ME] IN SERUM OR PLASMA 141 mmol/L 136 - 145 10/12 Specimen Type: PLASMA Comment: Glucose results >300 mg/dL OR Total Protein >10 g/dL may interfere with Creatinine result Ordering Provider: BILL OMALLEY Report Released Date/Time: October 12, 2023 03:25 PM Reporting Lab: [address] Performing Lab: [address] [address] [facility] ([facility]) RENAL PROFILE POTASSIUM [MOLES/VOLU ME] IN SERUM OR PLASMA 3.7 mmol/L 3.5 - 5.0 10/12 Specimen Type: PLASMA Comment: Glucose results >300 mg/dL OR Total Protein >10 g/dL may interfere with Creatinine result Ordering Provider: BILL OMALLEY Report Released Date/Time: October 12, 2023 03:25 PM Reporting Lab: [address] [address] Performing Lab: [address] [facility] ([place]) RENAL PROFILE CHLORIDE [MOLES/VOLU ME] IN SERUM OR PLASMA 104 mmol/L 98 - 107 10/12 Specimen Type: PLASMA Comment: Glucose results >300 mg/dL OR Total Protein >10 g/dL may interfere with Creatinine result Ordering Provider: BILL OMALLEY Report Released Date/Time: October 12, 2023 03:25 PM Reporting Lab: [address] Performing Lab: [address] [facility] ([facility]) RENAL PROFILE CARBON DIOXIDE, TOTAL [MOLES/VOLU ME] IN SERUM OR PLASMA 28 meq/L 20 - 30 10/12 Specimen Type: PLASMA Comment: Glucose results >300 mg/dL OR Total Protein >10 g/dL may interfere with Creatinine result Ordering Provider: BILL OMALLEY Report Released Date/Time: October 12, 2023 03:25 PM Reporting Lab: [address] Performing Lab: [address] [facility] ([place]) RENAL PROFILE CALCIUM [MASS/VOLUM E] IN SERUM OR PLASMA 8.9 mg/dL 8.4 - 10.4 10/12 Specimen Type: PLASMA Comment: Glucose results >300 mg/dL OR Total Protein >10 g/dL may interfere with Creatinine result Ordering Provider: BILL OMALLEY Report Released Date/Time: October 12, 2023 03:25 PM Reporting Lab: [address] Performing Lab: [address] [address] [facility] ([place]) RENAL PROFILE GLUCOSE [MASS/VOLUM E] IN SERUM OR PLASMA 92 mg/dL 70 - 180 10/12 Specimen Type: PLASMA Comment: Glucose results >300 mg/dL OR Total Protein >10 g/dL may interfere with Creatinine result Ordering Provider: BILL OMALLEY Report Released Date/Time: October 12, 2023 03:25 PM Reporting Lab: [address] Performing Lab: [facility] [address] ([place]) RENAL PROFILE GLOMERULAR FILTRATION RATE/1.73 SQ M.PREDICTED [VOLUME RATE/AREA] IN SERUM, PLASMA OR BLOOD BY CREATININE- BASED FORMULA (CKD-EPI 2020) 88 mL/min/{ 1.73_m2} 60 10/12 Specimen Type: PLASMA Comment: Glucose results >300 mg/dL OR Total Protein >10 g/dL may interfere with Creatinine result Ordering Provider: BILL OMALLEY Report Released Date/Time: October 12, 2023 03:25 PM Reporting Lab: [address] Performing Lab: [address] [facility] ([place]) Vital Signs Combined list of inpatient and outpatient Vital Signs from Department of Defense and Veterans Affairs, ranging from 12 months to all on record, depending upon the facility. Vital Sign Value Date Comments Source SYSTOLIC BLOOD PRESSURE 130 11/11/2023 07:57:07 [facility] ([place] DIASTOLIC BLOOD PRESSURE 78 11/11/2023 07:57:07 [facility] ([place] PULSE OXIMETRY 98 11/11/2023 07:57:07 [facility] [place] PAIN 3 11/11/2023 07:57:07 [facility] TEMPERATURE 98.1 11/11/2023 07:57:07 [facility] PULSE 78 11/11/2023 07:57:07 [facility] RESPIRATION 16 11/11/2023 07:57:07 [facility] ([place]) SYSTOLIC BLOOD PRESSURE 119 11/06/2023 09:37:05 [facility] ([place]) DIASTOLIC BLOOD PRESSURE 82 11/06/2023 09:37:05 [facility] ([place]) PULSE OXIMETRY 94 11/06/2023 09:37:05 [facility] PULSE 81 11/06/2023 09:37:05 [facility] ([place]) SYSTOLIC BLOOD PRESSURE 103 11/03/2023 13:22:[facility] DIASTOLIC BLOOD PRESSURE 72 11/03/2023 13:22:[facility] PULSE OXIMETRY 95 11/03/2023 13:22:02 [facility] WEIGHT 259 11/03/2023 13:22:[facility] BMI 36 kg/m2 11/03/2023 13:22:[facility] PAIN 4 11/03/2023 13:22:[facility] TEMPERATURE 97.4 11/03/2023 13:22:[facility] PULSE 86 11/03/2023 13:22:[facility] RESPIRATION 16 11/03/2023 13:22:[facility] SYSTOLIC BLOOD PRESSURE 106 11/01/2023 10:03:56 [facility] ([place]) DIASTOLIC BLOOD PRESSURE 72 11/01/2023 10:03:56 [facility] ([place]) PULSE 78 11/01/2023 10:03:56 [facility] SYSTOLIC BLOOD PRESSURE 120 10/31/2023 10:13:27 [facility] ([place]) DIASTOLIC BLOOD PRESSURE 79 10/31/2023 10:13:27 [facility] ([place]) PULSE 79 10/31/2023 10:13:27 [facility] ([place]) Encounters Combined list of: 1) Encounters from Department of Veterans Affairs facilities going backup to the last 18 months, not all VA inpatient encounters are included; 2) Encounters from the Department of Defense facilities going backup to 280 months. Location Location Details Encounter Type Encounter Number Reason For Visit Attending Provider ADM Date DC Date Status Disposition Source [facility] Facility OUTPATIENT [id number] 09/20 Released w/o Limitations [facility] OUTPATIENT [id number] 12/04 Released w/o Limitations [facility] OUTPATIENT [id number] 12/12 Released w/o Limitations [facility] OUTPATIENT [id number] 12/27 Released w/o Limitations [facility] OUTPATIENT [id number] 01/14 Released w/o Limitations [facility] OUTPATIENT [id number] 01/23 Released w/o Limitations [facility] OUTPATIENT [id number] 01/23 Released 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 Facilit y [facility]) OUTPATIENT [id number] POST-D RAYMUNDO ZAPIEN 06/23 Released w/o Limitations [facility] [place] con[place]ita Hilton([place]) [facility] [place]([facility]) OUTPATIENT [id number] BP (MSADT, MOB) DUNG DONNELLY 02/18 Released w/o Limitations [facility] [place] [facility] [place] OUTPATIENT [id number] blood pressur e check DANIELMILTONConchita MEGHAN S 02/19 Released w/o Limitations [facility] [place] [facility] [place] OUTPATIENT [id number] Blood pressur e check (KS ADt, MOB) DUNG DONNELLY 02/20 Released w/o Limitations [facility] [place] [facility] [place] OUTPATIENT [id number] Blood pressur e check ([place] ADT, MOB) DUNG DONNELLY 02/22 Released w/o Limitations [facility] [place] [facility] [place] OUTPATIENT [id number] case mgmt JOVANNA HOLMAN 02/22 Released w/o Limitations [facility] [place] [facility] [place] OUTPATIENT [id number] F/U Results (MNADT, MOB) VASILE REGALADO 03/02 Released w/o Limitations [facility] [place] [facility] [place] OUTPATIENT [id number] F/U AFTER CARDIAC STRESS TEST JOVANNA COLLAZO 03/15 Released w/o Limitations [facility] [place]- Case Managem [facility]) [facility] [place] OUTPATIENT [id number] Notes Entered by: ROSY GUIDO 03 Feb 2012 1328 ------- ------- ------- ------- -- EKG ROSY GUIDO Sharon 02/02 Released w/o Limitations [facility] [place]) [facility] [place] [facility] ) OUTPATIENT [id number] Notes Entered by: HERMINIO OAKES 03 Feb 2012 1453 ------- ------- ------- ------- -- SIERRA NICHOLE 02/02 Released w/o Limitations [facility] [place] [facility] [facility]) [facility] [place] Immuniz[place]) OUTPATIENT [id number] Notes Entered by: SAMIA AQUINO 03 Feb 2012 1502 ------- ------- ------- ------- -- patient here for PAMELA REAL 02/02 Released w/o Limitations [facility] [place] Immun[place]) [facility] [place] [employer] Hearing Conservat ion) OUTPATIENT [id number] Notes Entered by: DES DIOR 03 Feb 2012 1534 ------- ------- ------- ------- -- SCARLETT CHATTERJEE 02/02 Released w/o Limitations [facility] [place] [facility] [facility]) [facility] [place] [facility] Pre [employer] Post De[employer] t) OUTPATIENT [id number] Notes Entered by: KING GAMBINO 04 Feb 2012 0726 ------- ------- ------- ------- -- JOSE Santiago 02/03 Released w/o Limitations [facility] Landon Stephenson [place] [facility] Pre [place] De[place]m ent) [place] [facility] Outpatient Encounter [id number] 05/10 [place] [facility] [place] [facility] Outpatient Encounter [id number] Diagnos is: ICD-10- CM F43.10 Post-tr aumatic stress disorde r, unspeci CHRISTAL NurUES T 05/19 [facility] [place] [facility] Outpatient Encounter [id number] 05/20 [place] [facility] [place] [facility] Outpatient Encounter [id number] 05/31 [facility] Outpatient Encounter [id number] 06/02 [facility] [place] [facility] OFFICE O/P EST HI 40 MIN [id number] Diagnos is: ICD-10- CM M06.4 Inflamm atory polyart hropath y GLADYS HENDERSON NJAMIN E 06/02 [facility] [place] [facility] OFFICE O/P EST HI 40 MIN [id number] Diagnos is: ICD-10- CM M06.4 Inflamm atory polyart hropath y MARCY PEREZ 07/07 [facility] [place] [facility] Outpatient Encounter [id number] GLADYS HENDERSON NJAMIN E [facility] [place] [facility] OFFICE O/P EST MOD 30 MIN [id number] Diagnos is: ICD-10- CM F43.10 Post-tr aumatic stress disorde r, unspeci HCRISTAL NurUES T 07/20 [facility] [place] [facility] Outpatient Encounter [id number] 07/20 [facility] OFF/OP CNSLTJ NEW/EST LOW 30 [id number] Diagnos is: ICD-10- CM M25.552 Pain in left hip VIVIEN JOSEPH 07/31 [facility] [place] [facility] Outpatient Encounter [id number] 07/31 [facility] Outpatient Encounter [id number] 08/08 [facility] Outpatient Encounter [id number] Diagnos is: ICD-10- CM F43.10 Post-tr aumatic stress disorde r, unspeci fied CHRISTAL BOWERS T 08/21 [facility] Outpatient Encounter [id number] 08/22 [facility] Outpatient Encounter [id number] Diagnos is: ICD-10- CM F10.10 Alcohol abuse, uncompl icated GLADYS HENDERSON NJAMIN E 08/29 [facility] Outpatient Encounter [id number] Diagnos is: ICD-10- CM M25.552 Pain in left hip VIVIEN JOSEPH 08/30 [facility] Outpatient Encounter [id number] 09/06 [facility] Outpatient Encounter [id number] 09/07 [facility] Outpatient Encounter [id number] SYSTEM,CIS -ARK 09/21 [facility] EMERGENCY DEPT VISIT MOD [facility] [id number] Diagnos is: ICD-10- CM F10.10 Alcohol abuse, uncompl icated YOUSIF,CHETA N 09/21 [facility] CRISIS INTERVEN SVC, 15 MIN [id number] Diagnos is: ICD-10- CM F10.10 Alcohol abuse, uncompl icated LUIS ANTONIO STANLEY TH E 09/21 [facility] Detoxifica t[facility] Services for [facility] Abuse Treatment [id number] Admit Reason: ETOH USE DISORDE R MADAI KHOURY 09/21 Regular discharge from inpatient treatment. [facility] [facility] Inpatient Encounter [id number] 09/21 [facility] 1ST HOSP IP/OBS SF/LOW 40 [id number] [id number] Diagnos is: ICD-10- CM F10.10 Alcohol abuse, uncompl icated MADAI KHOURY 09/21 [facility] Inpatient Encounter [id number] 09/22 [facility] Inpatient Encounter [id number] SYSTEM,[facility] 09/22 [facility] Inpatient Encounter [id number] 09/22 [facility] SBSQ HOSP IP/OBS HIGH 50 35399-9.61 [id number] Diagnos is: ICD-10- CM I95.1 Orthost atic hypoten Raysa Noonan 09/22 [facility] Inpatient Encounter [id number] 09/22 [facility] [place] [facility] Inpatient Encounter [id number] 09/22 [facility] [place] [facility] Inpatient Encounter [id number] 09/22 [facility] Inpatient Encounter [id number] Admit Reason: ORTHOST ATIC HYPOTEN IVÁN ROSS,FAT GARRISON A 09/22 Discharge from inpatient treatment to the [facility] Connected (OPT-SC) rolls. [facility] [place] [facility] Inpatient Encounter [id number] 09/22 [place] [facility] [place] [facility] Inpatient Encounter [id number] 09/22 [facility] Encounter [id number] 09/22 [facility] [place] [facility] Inpatient Encounter [id number] 09/22 [facility] [place] [facility] Inpatient Encounter [id number] 09/22 [facility] [place] [facility] Inpatient Encounter [id number] [facility] 09/23 [facility] [place] [facility] Inpatient Encounter [id number] 09/23 [facility] [place] [facility] Inpatient Encounter [id number] 09/23 [facility] [place] [facility] Inpatient Encounter [id number] 09/23 [facility] [place] [facility] Inpatient Encounter [id number] 09/23 [facility] [place] [facility] Inpatient Encounter [id number] [facility] 09/24 [facility] [place] [facility] Inpatient Encounter [id number] 09/24 [place] [facility] [place] [facility] Inpatient Encounter [id number] 09/24 [place] [facility] [place] [facility] Inpatient Encounter [id number] [facility] 09/25 [place] [facility] [place] [facility] INJ PERFLUTREN LIP MICROS,ML 67305-2.61 [id number] Diagnos is: ICD-10- CM I95.9 Hypoten iván, unspeci fied TATA,DEBORAH FAN 09/25 [place] [facility] [place] [facility] Inpatient Encounter [id number] 09/25 [facility] Inpatient Encounter [id number] HERMINIO PALMA RISTINA A 09/25 [facility] [place] [facility] Inpatient Encounter [id number] 09/25 [facility] Inpatient Encounter [id number] Admit Reason: ORTHOST ATIC HYPOTEN IVÁN ROSS,FAT GARRISON A 09/25 [place] [facility] PT EVAL LOW COMPLEX 20 MIN [id number] [id number] Diagnos is: ICD-10- CM M62.81 Muscle weaknes s (genera lized) BENSON UNGER 09/25 [place] [facility] [place] [facility] Inpatient Encounter [id number] [facility] 09/26 [place] [facility] [place] [facility] Inpatient Encounter [id number] 09/26 [place] [facility] PRO PHONE CALL 21-30 MIN [id number] [id number] Diagnos is: ICD-10- CM F10.10 Alcohol abuse, uncompl icated DANDY RODRIGUEZ JENNIFER Gold 09/26 [facility] [place] [facility] Inpatient Encounter [id number] 09/26 [place] [facility] [place] [facility] Inpatient Encounter [id number] 09/26 [place] [facility] [place] [facility] Inpatient Encounter [id number] [facility] 09/27 [place] [facility] [place] [facility] Inpatient Encounter [id number] 09/27 [place] [facility] [place] [facility] THERAPEUTI C ACTIVITIES [id number] [id number] Diagnos is: ICD-10- CM R26.89 Other abnorma lities of gait and mobilit y BENSON UNGER 09/27 [place] [facility] [place] [facility] Inpatient Encounter [id number] 09/27 [place] [facility] [place] [facility] Inpatient Encounter [id number] 09/27 [place] [facility] [place] [facility] Inpatient Encounter [id number] [facility] 09/28 [place] [facility] [place] [facility] Inpatient Encounter [id number] 09/28 [place] [facility] [place] [facility] THERAPEUTI C ACTIVITIES [id number] [id number] Diagnos is: ICD-10- CM R26.89 Other abnorma lities of gait and mobilit y BENSON UNGER 09/28 [place] [facility] [place] [facility] Inpatient Encounter [id number] 09/28 [place] [facility] [place] [facility] Inpatient Encounter [id number] 09/28 [place] [facility] [place] [facility] Inpatient Encounter [id number] [id number] 09/29 [place] [facility] [place] [facility] Inpatient Encounter [id number] [facility] 09/29 [place] [facility] [place] [facility] Inpatient Encounter [id number] 09/29 [place] [facility] [place] [facility] ORTHOTIC MGMT&TRAIN G 1ST ENC [id number] [id number] Diagnos is: ICD-10- CM I95.1 Orthost atic hypoten MARIA EUGENIA Cordon ON J 09/29 [place] [facility] [place] [facility] Inpatient Encounter [id number] 09/29 [place] [facility] [place] [facility] THERAPEUTI C ACTIVITIES [id number] [id number] Diagnos is: ICD-10- CM Z74.09 Other reduced mobilit y JORGE ABARCA 09/29 [place] [facility] [place] [facility] Outpatient Encounter [id number] 09/29 [place] [facility] [place] [facility] Inpatient Encounter [id number] 09/29 [place] [facility] [place] [facility] Inpatient Encounter [id number] [id number] 09/29 [place] [facility] PSY EVALUATION OF RECORDS [id number] [id number] Diagnos is: ICD-10- CM F10.10 Alcohol abuse, uncompl icated DANDY RODRIGUEZ SHAKABrina C 09/29 [facility] [place] [facility] Outpatient Encounter [id number] 10/02 [place] [facility] HC PRO PHONE CALL 11-20 MIN [id number] [id number] Diagnos is: ICD-10- CM F10.10 Alcohol abuse, uncompl icated EUSEBIO DELUCA 10/03 [facility] Outpatient Encounter [id number] [id number] 10/03 [facility] MOD SED SAME PHYS/QHP 5/>YRS [id number] [id number] Diagnos is: ICD-10- CM K21.00 Gastro- esophag eal reflux dis with esophag itis, without bleed GUANAKITO ANDRES 10/04 [facility] Outpatient Encounter [id number] [id number] 10/04 [facility] Outpatient Encounter [id number] [id number] 10/04 [facility] Outpatient Encounter [id number] [id number] 10/05 [facility] Outpatient Encounter [id number] [id number] 10/05 [facility] HC PRO PHONE CALL 5-10 MIN [id number] [id number] Diagnos is: ICD-10- CM F10.10 Alcohol abuse, uncompl icated MARTINA ADAME 10/06 [facility] Outpatient Encounter [id number] [id number] RONNY ZUNIGA 10/06 [facility] Outpatient Encounter [id number] [id number] 10/07 [facility] Outpatient Encounter [id number] 10/10 [facility] ([facility]) Inpatient Encounter [id number] [id number] Admit Reason: dual CAR OMALLEY 10/11 Discharge from inpatient treatment to the Service Connected (OPT-SC) [facility] ([facility]) [facility] Outpatient Encounter [id number] [id number] 10/11 [facility] OFF/OP EST SEPTEMBER X REQ PHY/QHP 71975-6.65 [id number] Diagnos is: ICD-10- CM F10.10 Alcohol abuse, uncompl icated HERMINIO HERRERA 10/11 [facility] Outpatient Encounter [id number] [id number] 10/12 [facility] PSYCH DIAGNOSTIC EVALUATION [id number] Diagnos is: ICD-10- CM F43.10 Post-tr aumatic stress disorde r, unspeci fied VOECKS,COR Y D 10/12 [facility] SELF-MGMT EDUC/TRAIN 2-4 [place] [id number] [id number] Diagnos is: ICD-10- CM F10.10 Alcohol abuse, uncompl icated Radha ORTEGA 10/12 [facility] OFFICE O/P NEW MOD 45 MIN [id number] [id number] Diagnos is: ICD-10- CM F10.10 Alcohol abuse, uncompl icated CAR OMALLEY 10/12 [facility] Outpatient Encounter [id number] 10/12 [facility] MTMS BY PHARM EST 15 MIN 73511-2.65 [id number] Diagnos is: ICD-10- CM Z51.81 Encount er for therape utic drug level monitor JUANJOSE Figueroa 10/12 [facility] [place] [facility] Outpatient Encounter [id number] [id number] 10/12 [place] [facility] Outpatient Encounter [id number] [id number] DOMITILA RECIO 10/12 [facility] Outpatient Encounter [id number] [id number] 10/13 [facility] Outpatient Encounter [id number] [id number] 10/13 [facility] Outpatient Encounter [id number] [id number] 10/14 [facility] Outpatient Encounter [id number] [id number] 10/15 [facility] CASE MANAGEMENT 40157-1 [id number] Diagnos is: ICD-10- CM F33.1 Major depress rock disorde r, recurre nt, moderat e GRAHEK-POR LAUREN MONROE 10/16 [facility] HLTH BHV IVNTJ GRP 60994-5.65 [id number] Diagnos is: ICD-10- CM Z56.9 Unspeci fied problem s related to employm ent ADRIANO BRAVO B 10/16 [facility] GROUP PSYCHOTHER APY 85137-665 [id number] Diagnos is: ICD-10- CM F33.1 Major depress rock disorde r, recurre nt, moderat e RAYSHAWN KRISHNAN A 10/16 [facility] VENEER STAPLER ASSESSMENT [id number] [id number] Diagnos is: ICD-10- CM Z71.81 Spiritu al or religio us food counselor ALVA Hyatt 10/16 [facility] Outpatient Encounter [id number] [id number] 10/16 [facility] Outpatient Encounter [id number] [id number] 10/16 [facility] Outpatient Encounter [id number] [id number] 10/17 [facility] AYSHA IS [facility] Outpatient Encounter [id number] [id number] Raysa NINO 10/17 [place] [facility] GROUP HEALTH EDUCATION 59679-4.65 [id number] Diagnos is: ICD-10- CM F10.10 Alcohol abuse, uncompl icated ABHI ANDERSON RA 10/17 [facility] SERV 29133-9.65 [id number] Diagnos is: ICD-10- CM Z71.89 Other specifi ed food counselor Roxy Robles 10/17 [facility] PT EDUCATION NOC GROUP 44361-2 [id number] Diagnos is: ICD-10- CM F33.1 Major depress rock disorde r, recurre nt, moderat e RAYSHAWN KRISHNAN 10/17 [facility] GROUP PSYCHOTHER APY 39538-6 [id number] Diagnos is: ICD-10- CM F33.1 Major depress rock disorde r, recurre nt, moderat e TATE ALCANTAR 10/18 [facility] VENEER STAPLER ROPE TWISTING MACHINE OPERATOR INDIVIDU 06752-7 [id number] Diagnos is: ICD-10- CM Z71.81 Spiritu al or religio us food counselor STACEY Perez 10/18 [facility] GROUP PSYCHOTHER APY 01813-3.65 [id number] Diagnos is: ICD-10- CM F33.1 Major depress rock disorde r, recurre nt, moderat e RAYSHAWN KRISHNAN 10/18 [facility] GROUP PSYCHOTHER APY 56177-1.65 [id number] Diagnos is: ICD-10- CM F33.1 Major depress rock disorde r, recurre nt, moderat e RAYSHAWN KRISHNAN 10/18 [facility] GROUP HEALTH EDUCATION 03896-1 [id number] Diagnos is: ICD-10- CM F10.10 Alcohol abuse, uncompl icated ABHI ANDERSON RA 10/19 [facility] GROUP PSYCHOTHER APY 96545-2 [id number] Diagnos is: ICD-10- CM F33.1 Major depress rock disorde r, recurre nt, moderat e SURINDER SPRING 10/19 [facility] GROUP HEALTH EDUCATION 98353-6 [id number] Diagnos is: ICD-10- CM F10.10 Alcohol abuse, uncompl icated ABHI ANDERSON RA 10/20 [facility] GROUP PSYCHOTHER APY 93493-2.65 [id number] Diagnos is: ICD-10- CM F33.1 Major depress rock disorde r, recurre nt, moderat e RAYSHAWN KRISHNAN 10/20 [facility] PT EDUCATION NOC GROUP 92330-2 [id number] Diagnos is: ICD-10- CM F10.10 Alcohol abuse, uncompl icated Asif ROWE 10/20 [facility] [place] [facility] Outpatient Encounter [id number] [id number] 10/20 [place] [facility] Outpatient Encounter [id number] 10/21 [facility] Outpatient Encounter [id number] 10/21 [facility] PT EDUCATION NOC GROUP [id number] Diagnos is: ICD-10- CM F10.10 Alcohol abuse, uncompl icated ORION ROMAN 10/22 [facility] PT EDUCATION NOC GROUP 20532-3 [id number] Diagnos is: ICD-10- CM F10.10 Alcohol abuse, uncompl icated ORION ROMAN 10/22 [facility] GROUP HEALTH EDUCATION 65257-9 [id number] Diagnos is: ICD-10- CM F10.10 Alcohol abuse, uncompl icated MONICAABHI RA S 10/23 [facility] GROUP PSYCHOTHER APY 52542-4 [id number] Diagnos is: ICD-10- CM F43.10 Post-tr aumatic stress disorde r, unspeci fied GRAHEK-POR KKONEN,LAUREN LÓPEZ J 10/23 [facility] MTMS BY PHARM ADDL 15 MIN 89758-1 [id number] Diagnos is: ICD-10- CM F43.10 Post-tr aumatic stress disorde r, unspeci fied KLEFERNANDOL,KARLY MALDONADO G 10/23 [facility] GROUP HEALTH EDUCATION 23900-5 [id number] Diagnos is: ICD-10- CM F10.10 Alcohol abuse, uncompl icated ABHI ANDERSON RA S 10/24 [facility] GROUP PSYCHOTHER APY 58853-2 [id number] Diagnos is: ICD-10- CM F43.10 Post-tr aumatic stress disorde r, unspeci fied KRISHNAN,KE SHAKAY A 10/24 [facility] GROUP HEALTH EDUCATION 64365-5 [id number] Diagnos is: ICD-10- CM F10.10 Alcohol abuse, uncompl icated ABHI ANDERSON RA S 10/25 [facility] GROUP PSYCHOTHER APY 09083-0 [id number] Diagnos is: ICD-10- CM F33.1 Major depress rock disorde r, recurre nt, moderat e KRISHNAN,KE LLY A 10/25 [facility] CASE MANAGEMENT 77622-8 [id number] Diagnos is: ICD-10- CM F33.1 Major depress rock disorde r, recurre nt, moderat e GRAHEK-POR KKONEN,LAUREN RENE J 10/26 [facility] Outpatient Encounter [id number] GRAHEK-POR KKONEN,LAUREN RNEE J 10/26 [facility] GROUP HEALTH EDUCATION 18397-9 [id number] Diagnos is: ICD-10- CM F10.10 Alcohol abuse, uncompl icated ABHI ANDERSON RA S 10/26 [facility] Outpatient Encounter [id number] KARLY CORRIGAN 10/26 [facility] GROUP PSYCHOTHER APY 01668-2 [id number] Diagnos is: ICD-10- CM F33.1 Major depress rock disorde r, recurre nt, moderat e KRISHNAN,KE LLY A 10/26 [facility] GROUP PSYCHOTHER APY 96414-5. [id number] Diagnos is: ICD-10- CM F10.10 Alcohol abuse, uncompl icated RENÉE JEAN L 10/27 [facility] GROUP PSYCHOTHER APY 58196-9. [id number] Diagnos is: ICD-10- CM F33.1 Major depress rock disorde r, recurre nt, moderat e KRISHNAN,KE LLY A 10/27 [facility] Outpatient Encounter [id number] [id number] 10/28 [facility] CASE MANAGEMENT 45592-1 [id number] Diagnos is: ICD-10- CM F33.1 Major depress rock disorde r, recurre nt, moderat e GRAHEK-POR ELVAONENLAUREN J 10/30 [facility] SELF-MGMT EDUC/TRAIN 5-8 [place] 26[address]-6. [id number] Diagnos is: ICD-10- CM F43.10 Post-tr aumatic stress disorde r, unspeci fied CRUZFLAVIA LOPEZ CINDY S 10/30 [facility] GROUP HEALTH EDUCATION 90155-9 [id number] Diagnos is: ICD-10- CM F10.10 Alcohol abuse, uncompl icated ABHI ANDERSON RA S 10/30 [facility] GROUP PSYCHOTHER APY 23550-6 [id number] Diagnos is: ICD-10- CM F43.10 Post-tr aumatic stress disorde r, unspeci fiRAYSHAWN Tang A 10/30 [facility] GROUP PSYCHOTHER APY 24006-4 [id number] Diagnos is: ICD-10- CM F43.10 Post-tr aumatic stress disorde r, unspeci fied ANT RECIOAN T 10/30 [facility] SELF-MGMT EDUC/TRAIN 2-4 [place] [address]-2 [id number] Diagnos is: ICD-10- CM F43.10 Post-tr aumatic stress disorde r, unspeci fiFLAVIA Manning CINDY S 10/31 [facility] GROUP HEALTH EDUCATION 63399-0 [id number] Diagnos is: ICD-10- CM F10.10 Alcohol abuse, uncompl icated ABHI ANDERSON RA S 10/31 [facility] GROUP PSYCHOTHER APY 73829-065 [id number] Diagnos is: ICD-10- CM F33.1 Major depress rock disorde r, recurre nt, moderat e RAYSHAWN KRISHNAN LLY A 10/31 [facility] GROUP PSYCHOTHER APY 41664-5 [id number] Diagnos is: ICD-10- CM F43.10 Post-tr aumatic stress disorde r, unspeci fied ELSIELEONAJUMA 10/31 [facility] [place] [facility] CASE MANAGEMENT 47966-7 [id number] Diagnos is: ICD-10- CM F43.10 Post-tr aumatic stress disorde r, unspeci fied MADDIEKNikiROBERT R,AMADA 10/31 [place] [facility] 18502-3 [id number] Diagnos is: ICD-10- CM F43.10 Post-tr aumatic stress disorde r, unspeci fied LUPEEK-POR LAUREN MONROE 10/31 [facility] SELF-MGMT EDUC/TRAIN 5-8 [place] 6[address]-2 [id number] Diagnos is: ICD-10- CM F43.10 Post-tr aumatic stress disorde r, unspeci fied FLAVIA CRUZ CINDY Ramsey 11/02 [facility] GROUP PSYCHOTHER APY 89324-6 [id number] Diagnos is: ICD-10- CM F10.10 Alcohol abuse, uncompl icated LUPEEK-POR LAUREN MONROE 11/02 [facility] Outpatient Encounter 25570-9 [id number] ARTHUR CEVALLOS 11/02 [facility] MTMS BY PHARM ADDL 15 MIN 63375-5 [id number] Diagnos is: ICD-10- CM G47.00 Insomni a, unspeci fied KARLY PHAN 11/02 [facility] GROUP PSYCHOTHER APY 65765-8 [id number] Diagnos is: ICD-10- CM F10.10 Alcohol abuse, uncompl icated GRAHEK-POR KKONEN,LAUREN RENE J 11/03 [facility] GROUP PSYCHOTHER APY 60730-5 [id number] Diagnos is: ICD-10- CM F33.1 Major depress rock disorde r, recurre nt, moderat e RAYSHAWN KRISHNAN A 11/03 [facility] GROUP PSYCHOTHER APY 75180-8.65 [id number] Diagnos is: ICD-10- CM F43.10 Post-tr aumatic stress disorde r, unspeci fied JUMA ARMIJO 11/03 [facility] IVNTJ GRP EA ADDL 75916-8 [id number] Diagnos is: ICD-10- CM F33.1 Major depress rock disorde r, recurre nt, moderat e FARZANA MULLER DGE L 11/06 [facility] Outpatient Encounter 17488-9 [id number] FARZANA MULLER DGE L 11/06 [facility] GROUP HEALTH EDUCATION 65493-0 [id number] Diagnos is: ICD-10- CM F10.10 Alcohol abuse, uncompl icated KREKARELY,TA RA S 11/06 [facility] CASE MANAGEMENT 27216-2 [id number] Diagnos is: ICD-10- CM F33.1 Major depress rock disorde r, recurre nt, moderat e GRAHEK-POR KKONEN,LAUREN RENE J 11/06 [facility] GROUP PSYCHOTHER APY 17909-7 [phone] Diagnos is: ICD-10- CM F43.10 Post-tr aumatic stress disorde r, unspeci fied HOHARRIETTVO NI L 11/06 [facility] 14064-0 [id number] Diagnos is: ICD-10- CM F33.1 Major depress rock disorde r, recurre nt, moderat e FARZANA MULLER L 11/07 [facility] HEALTH EDUCATION 73848-3 [id number] Diagnos is: ICD-10- CM F10.10 Alcohol abuse, uncompl icated ABHI ANDERSON RA S 11/07 [facility] [place] [facility] Outpatient Encounter [id number] [id number] 11/07 [place] [facility] GROUP PSYCHOTHER APY 92723-3 [id number] Diagnos is: ICD-10- CM F10.10 Alcohol abuse, uncompl icated KRISHNAN,KE LLY A 11/07 [facility] GROUP PSYCHOTHER APY 61301-7 [phone] Diagnos is: ICD-10- CM F43.10 Post-tr aumatic stress disorde r, unspeci fied SAI,C RYSTAL V 11/07 [facility] HLTH BHV IVNTJ INDIV EA ADDL 76730-4 [id number] Diagnos is: ICD-10- CM F33.1 Major depress rock disorde r, recurre nt, moderat e FARZANA MULLER L 11/08 [facility] HEALTH EDUCATION 88730-1 [phone] Diagnos is: ICD-10- CM F10.10 Alcohol abuse, uncompl icated ABHI ANDERSON RA S 11/08 [facility] GROUP PSYCHOTHER APY 13334-5 [id number] Diagnos is: ICD-10- CM F33.1 Major depress rock disorde r, recurre nt, moderat e KRISHNAN,KE LLY A 11/08 [facility] GROUP PSYCHOTHER APY 61080-8 [phone] Diagnos is: ICD-10- CM F43.10 Post-tr aumatic stress disorde r, unspeci fied Asif GIBBS V 11/08 [facility] HEALTH EDUCATION 75494-3 [phone] Diagnos is: ICD-10- CM F10.10 Alcohol abuse, uncompl icated ABHI ANDERSON S 11/09 [facility] GROUP PSYCHOTHER APY 43541-6 [id number] Diagnos is: ICD-10- CM F33.1 Major depress rock disorde r, recurre nt, moderat e RAYSHAWN KRISHNAN A 11/09 [facility] SELF-HELP/ PEER SVC PER 15MIN 09926-3. [phone] Diagnos is: ICD-10- CM F10.10 Alcohol abuse, uncompl icated LINA ARCHER PH 11/09 [facility] OFFICE O/P EST MOD 30 MIN 21021-4.15 [id number] Diagnos is: ICD-10- CM F10.10 Alcohol abuse, uncompl icated FARZANA SAMAYOA 11/10 [facility] MTMS BY PHARM EST 15 MIN 33216-1.65 [id number] Diagnos is: ICD-10- CM Z51.81 Encount er for therape utic drug level monitor CASSIE Castillo 11/10 [facility] GROUP PSYCHOTHER APY 11465-067 [phone] Diagnos is: ICD-10- CM F33.1 Major depress rock disorde r, recurre nt, moderat e SURINDER SPRING 11/10 [facility] GROUP PSYCHOTHER APY [phone] Diagnos is: ICD-10- CM F43.10 Post-tr aumatic stress disorde r, unspeci RAYSHAWN Mehta 11/10 [facility] GROUP PSYCHOTHER APY [id number] [id number] Diagnos is: ICD-10- CM F43.10 Post-tr aumatic stress disorde r, unspeci fied Asif GIBBS V 11/10 [facility] CASE MANAGEMENT [id number] [id number] Diagnos is: ICD-10- CM F33.1 Major depress rock disorde r, recurre nt, moderat e GRAHEK-POR KKONEN,LAUREN RENE J 11/13 [facility] Outpatient Encounter [id number] 11/13 [facility] HC PRO PHONE CALL 11-20 MIN [phone] Diagnos is: ICD-10- CM F43.10 Post-tr aumatic stress disorde r, unspeci fiEUSEBIO Vanegas 11/14 [facility] PSYCH DIAGNOSTIC EVALUATION [id number] Diagnos is: ICD-10- CM F43.10 Post-tr aumatic stress disorde r, unspeci DEBORAH Tyler 11/17 [facility] Outpatient Encounter [id number] 11/20 [facility] HC PRO PHONE CALL 21-30 MIN 83602-4.65 [id number] Diagnos is: ICD-10- CM F33.1 Major depress rock disorde r, recurre nt, moderat e GRAHEK-POR KKONEN,LAUREN RENE J 11/20 [facility] Outpatient Encounter [id number] 11/20 [facility] GROUP PSYCHOTHER APY [id number] [id number] Diagnos is: ICD-10- CM F43.10 Post-tr aumatic stress disorde r, unspeci DEBORAH Tyler 11/28 [facility] PSYCHOTHER APY [id number] [id number] Diagnos is: ICD-10- CM F43.10 Post-tr aumatic stress disorde r, unspeci DEBORAH Tyler 11/29 [facility] Outpatient Encounter [id number] MADAI DIAZ 11/29 [facility] Outpatient Encounter [phone] CHALINOELAN FRY 11/30 [facility] Outpatient Encounter [id number] Diagnos is: ICD-10- CM F43.10 Post-tr aumatic stress disorde r, unspeci TARA Ortega 12/01 [facility] GROUP PSYCHOTHER APY [id number] [id number] Diagnos is: ICD-10- CM F43.10 Post-tr aumatic stress disorde r, unspeci DEBORAH Tyler H Sharon 12/05 [facility] PSYCHOTHER APY [id number] [id number] Diagnos is: ICD-10- CM F43.10 Post-tr aumatic stress disorde r, unspeci DEBORAH Tyler 12/06 [facility] HC PRO PHONE CALL 11-20 MIN [phone] Diagnos is: ICD-10- CM F33.1 Major depress rock disorde r, recurre nt, moderat e GRAHEK-POR LAUREN MONROE 12/07 [facility] GROUP PSYCHOTHER APY [id number] [id number] Diagnos is: ICD-10- CM F43.10 Post-tr aumatic stress disorde r, unspeci SYLVESTER TylerIT H R 12/12 [place] [facility] GROUP PSYCHOTHER APY 48878-3 [id number] Diagnos is: ICD-10- CM F43.10 Post-tr aumatic stress disorde r, unspeci DEBORAH Tyler 12/13 [facility] Outpatient Encounter [id number] 12/13 [facility] Outpatient Encounter [id number] Diagnos is: ICD-10- CM F43.10 Post-tr aumatic stress disorde r, unspeci fiCHRISTAL Goncalves 12/13 [facility] [id number] Diagnos is: ICD-10- CM Z71.89 Other specifi ed food counselor Roxy Robles 12/14 [facility] OFF/OP EST SEPTEMBER X REQ PHY/QHP [phone] Diagnos is: ICD-10- CM F43.10 Post-tr aumatic stress disorde r, unspeci TARA Ortega 12/15 [facility] GROUP PSYCHOTHER APY [id number] Diagnos is: ICD-10- CM F43.10 Post-tr aumatic stress disorde r, unspeci DEBORAH Tyler R 12/19 [facility] Outpatient Encounter [id number] FARZANA HERNANDEZ 12/19 [facility] GROUP PSYCHOTHER APY [id number] Diagnos is: ICD-10- CM F43.10 Post-tr aumatic stress disorde r, unspeci DEBORAH Tyler 12/20 [facility] GROUP PSYCHOTHER APY [id number] Diagnos is: ICD-10- CM F43.10 Post-tr aumatic stress disorde r, unspeci fialia VINCENTFAIT H R 12/26 [place] [facility]Y [id number] [id number] Diagnos is: ICD-10- CM F43.10 Post-tr aumatic stress disorde r, unspeci fialia VINCENT,FAIT H R 12/27 [place] [facility] APY [id number] [id number] Diagnos is: ICD-10- CM F43.10 Post-tr aumatic stress disorde r, unspeci fialia VINCENT,FAIT H R 01/02 [place] [facility] [place] [facility]Y 06410-6.61 [id number] Diagnos is: ICD-10- CM F43.10 Post-tr aumatic stress disorde r, unspeci fialia VINCENTFAIT H R 01/03 [place] [facility] [place] [facility] [id number] [id number] Diagnos is: ICD-10- CM F43.10 Post-tr aumatic stress disorde r, unspeci fialia VINCENT,FAIT H R 01/09 [place] [facility] [place] [facility] 73898-3.61 [id number] Diagnos is: ICD-10- CM F43.10 Post-tr aumatic stress disorde r, unspeci fialia VINCENT,FAIT H R 01/10 [place] [facility] [place] [facility] [place]Y [id number] [id number] Diagnos is: ICD-10- CM F43.10 Post-tr aumatic stress disorde r, unspeci fialia VINCENT,FAIT H R 01/17 [place] [facility] [place] [facility] [place]Y [id number] [id number] Diagnos is: ICD-10- CM F43.10 Post-tr aumatic stress disorde r, unspeci fiDEBORAH Tenorio R 01/23 [facility] GROUP PSYCHOTHER APY [id number] Diagnos is: ICD-10- CM F43.10 Post-tr aumatic stress disorde r, unspeci fied DEBORAH VINCENT H R 01/24 [place] [facility] Outpatient Encounter [id number] 01/26 [facility] Outpatient Encounter [id number] Diagnos is: ICD-10- CM F43.12 Post-tr aumatic stress disorde r, chronic CHRISTAL BOWERS 01/26 [facility] Outpatient Encounter [phone] CORNELIUS KLEIN 01/29 [facility] GROUP PSYCHOTHER APY [id number] Diagnos is: ICD-10- CM F43.12 Post-tr aumatic stress disorde r, chronic DEBORAH VINCENT H R 02/06 [facility] GROUP PSYCHOTHER APY [id number] Diagnos is: ICD-10- CM F43.12 Post-tr aumatic stress disorde r, chronic DEBORAH VINCENT H R 02/07 [facility] GROUP PSYCHOTHER APY [id number] Diagnos is: ICD-10- CM F43.10 Post-tr aumatic stress disorde r, unspeci fied DEBORAH VINCENT H R 02/14 [facility] GROUP PSYCHOTHER APY [id number] Diagnos is: ICD-10- CM F43.12 Post-tr aumatic stress disorde r, chronic DEBORAH VINCENT H R 02/21 [facility] Outpatient Encounter [id number] 02/28 [place] [facility] [place] [facility] [place] [facility] [place]Y [id number] [id number] Diagnos is: ICD-10- CM F43.12 Post-tr aumatic stress disorde r, chronic VINCENT,FAIT H R 03/06 [place] [facility] [place] [facility] [place] [facility] [place]Y [id number] [id number] Diagnos is: ICD-10- CM F43.12 Post-tr aumatic stress disorde r, chronic VINCENT,FAIT H R 03/07 [place] [facility] [place] [facility] [place] [facility] [place]Y 74470-8.61 [id number] Diagnos is: ICD-10- CM F43.10 Post-tr aumatic stress disorde r, unspeci fialia VINCENTFAIT H R 03/14 [place] [facility] Outpatient Encounter [id number] MARCY PEREZ 03/16 [place] [facility] [place] [facility] [place]Y [id number] [id number] Diagnos is: ICD-10- CM F43.10 Post-tr aumatic stress disorde r, unspeci fialia VINCENTFAIT H R 03/20 [place] [facility] [place] [facility] [id number] [id number] Diagnos is: ICD-10- CM F43.12 Post-tr aumatic stress disorde r, chronic VINCENT,FAIT H R 03/21 [place] [facility] [place] [facility] [id number] [id number] Diagnos is: ICD-10- CM F43.12 Post-tr aumatic stress disorde r, chronic VINCENT,FAIT H R 03/28 [place] [facility] [place] [facility] [place]Y 03042-5.61 [id number] Diagnos is: ICD-10- CM F43.10 Post-tr aumatic stress disorde r, unspeci fied MELISAFAIT H Sharon 04/04 [place] [facility] [place] [facility] Outpatient Encounter [id number] 04/11 [place] [facility] [place] [facility] Outpatient Encounter [id number] 04/13 [place] [facility] Outpatient Encounter [id number] [id number] Raysa PRESTON R 04/13 [place] [facility] Outpatient Encounter [id number] Diagnos is: ICD-10- CM R91.8 Other nonspec ific abnorma l finding of lung field FELIPECARLYNJuan BHAT 04/16 [facility] GROUP PSYCHOTHER APY [id number] Diagnos is: ICD-10- CM F43.12 Post-tr aumatic stress disorde r, chronic DEBORAH VINCENT H R 04/18 [facility] Outpatient Encounter [id number] Raysa PRESTON R 04/23 [facility] GROUP PSYCHOTHER APY [id number] Diagnos is: ICD-10- CM F43.10 Post-tr aumatic stress disorde r, unspeci DEBORAH Tyler H R 04/24 [place] [facility] GROUP PSYCHOTHER APY [id number] Diagnos is: ICD-10- CM F43.12 Post-tr aumatic stress disorde r, chronic DEBORAH VINCENT H Sharon 04/25 [place] [facility] Outpatient Encounter [id number] 04/26 [place] [facility] Outpatient Encounter [id number] Diagnos is: ICD-10- CM F43.12 Post-tr aumatic stress disorde r, chronic ROBINSON,JA CQUES T 04/26 [facility] Outpatient Encounter [id number] 05/02 [place] [facility] GROUP PSYCHOTHER APY 99046-7 [id number] Diagnos is: ICD-10- CM F43.12 Post-tr aumatic stress disorde r, chronic VINCENT,FAIT H R 05/23 [facility] GROUP PSYCHOTHER APY [id number] Diagnos is: ICD-10- CM F43.12 Post-tr aumatic stress disorde r, chronic VINCENT,FAIT H R 05/29 [facility] GROUP PSYCHOTHER APY [id number] Diagnos is: ICD-10- CM F43.12 Post-tr aumatic stress disorde r, chronic VINCENT,FAIT H R 05/30 [facility] GROUP PSYCHOTHER APY [id number] Diagnos is: ICD-10- CM F43.10 Post-tr aumatic stress disorde r, unspeci fied VINCENT,FAIT H R 06/05 [facility] GROUP PSYCHOTHER APY [id number] Diagnos is: ICD-10- CM F43.12 Post-tr aumatic stress disorde r, chronic VINCENT,FAIT H R 06/06 [facility] GROUP PSYCHOTHER APY [id number] Diagnos is: ICD-10- CM F43.12 Post-tr aumatic stress disorde r, chronic VINCENT,FAIT H R 06/13 [facility] Outpatient Encounter [id number] RENARD PLAZA 06/15 [facility] SYNCH AUDIO-ONLY EST LOW 20 [phone] Diagnos is: ICD-10- CM W06.XXX A Fall from bed, initial encount er KAYYBERE Hernandez 06/15 [facility] PSYCHOTHER APY [id number] Diagnos is: ICD-10- CM F43.10 Post-tr aumatic stress disorde r, unspeci fiDEBORAH Tenorio H R 06/20 [facility] PSYCHOTHER APY [id number] [id number] Diagnos is: ICD-10- CM F43.12 Post-tr aumatic stress disorde r, chronic DEBORAH VINCENT R 06/27 [facility] PSYCHOTHER APY [id number] [id number] Diagnos is: ICD-10- CM F43.12 Post-tr aumatic stress disorde r, chronic DEBORAH VINCENT 07/04 [facility] PSYCHOTHER APY [id number] [id number] Diagnos is: ICD-10- CM F43.10 Post-tr aumatic stress disorde r, unspeci DEBORAH Tyler R 07/11 [facility] PSYCHOTHER APY 98195-9.61 [id number] Diagnos is: ICD-10- CM F43.12 Post-tr aumatic stress disorde r, chronic DEBORAH VINCENT 07/18 [facility] SYNCH AUDIO-ONLY EST MOD 30 [id number] Diagnos is: ICD-10- CM F43.12 Post-tr aumatic stress disorde r, chronic CHRISTAL BOWERS 07/23 [facility] PSYCHOTHER APY [id number] [id number] Diagnos is: ICD-10- CM F43.10 Post-tr aumatic stress disorde r, unspeci fiDEBORAH Tenorio H R 07/25 [place] [facility] [place] [facility] GROUP PSYCHOTHER APY [id number] Diagnos is: ICD-10- CM F43.10 Post-tr aumatic stress disorde r, unspeci DEBORAH Tyler H Sharon 08/01 [place] [facility] GROUP PSYCHOTHER APY [id number] Diagnos is: ICD-10- CM F43.10 Post-tr aumatic stress disorde r, unspeci DEBORAH Tyler H R 08/08 [place] [facility] [place] [facility] Outpatient Encounter [id number] 08/15 [place] [facility] Outpatient Encounter [id number] 08/22 [place] [facility] GROUP PSYCHOTHER APY [id number] Diagnos is: ICD-10- CM F43.10 Post-tr aumatic stress disorde r, unspeci DEBORAH Tyler H Sharon 08/29 [place] [facility] SYNCH AUDIO-ONLY EST MOD 30 [id number] Diagnos is: ICD-10- CM F43.12 Post-tr aumatic stress disorde r, chronic CHRISTAL BOWERS 09/04 [place] [facility] GROUP PSYCHOTHER APY [id number] Diagnos is: ICD-10- CM F43.10 Post-tr aumatic stress disorde r, unspeci DEBORAH Tyler H Sharon 09/05 [place] [facility] Outpatient Encounter [id number] 09/05 [place] [facility] GROUP PSYCHOTHER APY [id number] Diagnos is: ICD-10- CM F43.12 Post-tr aumatic stress disorde r, chronic DEBORAH VINCENT R 09/12 [facility] GROUP PSYCHOTHER APY [id number] Diagnos is: ICD-10- CM F43.12 Post-tr aumatic stress disorde r, chronic VINCENT,FAIT H R 09/19 [facility] GROUP PSYCHOTHER APY [id number] Diagnos is: ICD-10- CM F43.10 Post-tr aumatic stress disorde r, unspeci fied MELISA,FAIT H R 09/26 [facility] GROUP PSYCHOTHER APY [id number] Diagnos is: ICD-10- CM F43.10 Post-tr aumatic stress disorde r, unspeci fied MELISA,FAIT H R 10/03 [facility] GROUP PSYCHOTHER APY 24505-1 [id number] Diagnos is: ICD-10- CM F43.10 Post-tr aumatic stress disorde r, unspeci fied VINCENT,FAIT H R 10/10 [facility] Outpatient Encounter [id number] 10/16 [facility] SYNCH AUDIO-ONLY EST MOD 30 [id number] Diagnos is: ICD-10- CM F43.12 Post-tr aumatic stress disorde r, chronic CHRISTAL BOWERS 10/16 [facility] Outpatient Encounter [id number] 10/22 [facility] [place] [facility] Outpatient Encounter [id number] 10/24 [facility] Procedures Combined list of: 1) Procedures from Department of [facility] Affairs facilities going back up to thelast 18 months, not all [place] non-surgical procedures are included; 2) All procedures from the Department of Defense facilities. Procedure Procedure Type Code Date Perfomer Comments Sourc e Health And Behav A e mt Each 15 Min Initial A e ment Health And Behav Assessmt Each 15 Min Initial Assessment [address] [facility] Spectacles Services Fitting Monofocals (Not For Aphakia) Spectacles Services Fitting Monofocals (Not For Aphakia) [address] [facility] Visual Function Screening Visual Function Screening [address] [facility] Threshold Audiogram (Pure Tone) Threshold Audiogram (Pure Tone) [address] [facility] Immunization Administration One Vaccine Immunization Administration One Vaccine [address] [facility] Skin Test Anergy Tuberculin Intradermal Skin Test Anergy Tuberculin Intradermal 44642 KARMA FERNANDEZ IPPD; Series #: 1; .1 mL; ID; Right Arm; Mfg: [employer]; Lot: [id number]; VIS given. [facility] Influenza Virus Vaccine Live Intranasal KARMA FERNANDEZ Influenza, Live, Intranasal; Series #: 1; .1 mL; IN; Right Arm; Mfg: Veruta.; Lot: [id number]; VIS given ([place]: 12/08/10). [facility] Electrocardiogram Electrocardiogram 11272 02/02 ROSY GUIDO Vent Rate: 78 BPM DC: 162 MS QRS: 86 MS QT: [address] [facility] Venipuncture Venipuncture 31660 ROSY GUIDO Collected from right arm [facility] Non-Physician Phone Call To Patient/Provider Brief (5-10min) Non-Physician Phone Call To Patient/Provider Brief (5-10min) 91258 JOVANNA COLLAZO Coordinated care fee, maintenance rate JOVANNA COLLAZO Case Management, each [address] Services Analysis Of Computerized Data Special [place] Services Analysis Of Computerized Data [address] Educational Services RAYMUNDO ZAPIEN Audiometry Group Testing Audiometry Group Testing [address] [facility] -Supervised Services Provision Of Special Supplies -Supervised Services Provision Of Special Supplies [address] [facility] Threshold Audiogram (Pure Tone) Threshold Audiogram (Pure Tone) [address] [facility] ENT Services ENT Services [address] [facility] HEPATITIS B VACCINE (HEPB), ADULT DOSAGE, 3 DOSE SCHEDULE, FOR INTRAMUSCULAR USE [facility] HEPATITIS B VACCINE (HEPB), ADULT DOSAGE, 3 DOSE SCHEDULE, FOR INTRAMUSCULAR USE [facility] UNLISTED VACCINE/TOXOID 05/17 [facility] INFLUENZA VIRUS VACCINE, TRIVALENT (IIV3), SPLIT VIRUS, PRESERVATIVE FREE, 0.5 ML DOSAGE, FOR INTRAMUSCULAR USE [facility] OPHTHALMOLOGICAL SERVICES: MEDICAL EXAMINATION AND EVALUATION WITH INITIATION OF DIAGNOSTIC AND TREATMENT PROGRAM; INTERMEDIATE, NEW PATIENT [facility] PATIENT EDUCATION, NOT OTHERWISE CLASSIFIED, NON-PHYSICIAN PROVIDER, GROUP, PER SESSION [facility] PHYS/OTH QUALIFIED HEALTH MOTEL FRONT DESK ATTENDANT QUALIFIED,EDUCATION,TRA IN,LICENSURE/REGULATION (WHEN APPLICABLE) EDUC SER RENDERED TO PATS IN A GRP SETTING (EG,,OBESITY,OR DIABETIC INSTRUCT) [facility] HEPATITIS B VACCINE (HEPB), ADULT DOSAGE, 3 DOSE SCHEDULE, FOR INTRAMUSCULAR USE [facility] ANTHRAX VACCINE, FOR SUBCUTANEOUS OR INTRAMUSCULAR USE [facility] COLLECTION OF VENOUS BLOOD BY VENIPUNCTURE [facility] HEALTH&BEHAV ASSESSMENT (EG, HEALTH-FOC CLINICAL INTERVIEW, BEHAVIORAL OBSERVATIONS, PSYCHOPHYSICOLOGICAL MONITOR, HEALTH-ORIENT QUESTIONNAIRES), EA 15 MIN [id number] W THE PATIENT; INIT ASSESSMENT [facility] PURE TONE AUDIOMETRY (THRESHOLD); AIR ONLY [facility] IMMUNIZATION ADMINISTRATION (INCLUDES PERCUTANEOUS, INTRADERMAL, SUBCUTANEOUS, OR INTRAMUSCULAR INJECTIONS); 1 VACCINE (SINGLE OR COMBINATION VACCINE/TOXOID) [facility] FITTING OF SPECTACLES, EXCEPT FOR APHAKIA; MONOFOCAL [facility] COLLECTION OF VENOUS BLOOD BY VENIPUNCTURE [facility] TELE ASSESS & MGT SRV PROV QUAL NONPHYS HLTH CARE PRO TO EST PAT,PARENT,GUARD NOT ORIG REL ASSESS & MGT SRV PROV W/IN PREV 7 DAYS NOR LEAD ASSESS & MGT SRV/PX W/IN NXT 24 HR/SOON APT;5-10 MIN MED DIS 011 [facility] TYPHOID VACCINE, CAPSULAR POLYSACCHARIDE (VICPS), FOR INTRAMUSCULAR USE [facility] BLOOD PRESSURE MEASURED (CKD)(DM) 011 [facility] BLOOD PRESSURE MEASURED (CKD)(DM) 011 [facility] BLOOD PRESSURE MEASURED (CKD)(DM) 011 [facility] BLOOD PRESSURE MEASURED (CKD)(DM) 011 [facility] Social History Combined list of available smoking, tobacco, and other social history from 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 Social History Type Response Date Comment Sourc e Tobacco smoking status NCIS [facility] FORMER USER 10/13/2023 [facility] History of tobacco use [place] 5 TO < 15 YRS 10/13/2023 [facility] ([place]) History of tobacco use [place]-TOBACCO QUIT 5 TO < 15 YRS 06/02/2023 [facility] History of tobacco use [place]-TO[place]ACCO QUIT 1 5 YRS OR MORE 05/21/2022 [facility] History of tobacco use [place]ACCO FORMER USER 11/12/2020 [facility] History of tobacco use INPT NO TOBACCO U SE IN LAST 30 DAYS 05/31/2019 [facility] History of tobacco use [facility]CO FORMER USER 11/08/2017 [facility] History of tobacco use FORMER TOBACCO US E >1Y <7Y 05/11/2017 [facility] History of tobacco use FORMER TOBACCO US E >1Y <7Y 08/04/2016 [facility] History of tobacco use FORMER TOBACCO USE <1Y 08/04/2015 [facility] History of tobacco use CURRENT TOBACCO USER 08/13/2014 [facility] History of tobacco use FORMER TOBACCO US ER 7Y OR GREATER 10/10/2013 [facility] History of tobacco use CURRENT TOBACCO USER 05/26/2012 [facility] History of tobacco use CURRENT TOBACCO USER 11/19/2009 [facility] History of tobacco use CURRENT TOBACCO USER 11/25/[address] [facility] [employer] [facility] This section is an empty social history section. DoD Plan of Care List of future care activities from Department of [facility] facilities. Additional future care activities may be listed in the Assessment and Plan section. Date/Time Care Activity Care Activity Detail Facili ty 10/24/2024 AMBULATORY - PSYCHIATRY AMBULATORY - PSYC HIATRY [facility] Advance Directives List of completed, amended, or rescinded Advance Directives on record at Department of [facility] facilities. An actual copy of the Directive is not included. Date Advance Directive Provider Source 10/31/2023 [facility] DIRECT[facility] HERLINDA SONG ([place]) 10/17/2023 [facility] DIRECTIVE LUKASZ CAMACHO [facility]
[2024-10-24 11:31] VITALS: BP 130/82; PULSE 84; RESP 18; TEMP 36.8; O2SAT 96
--- NOTE | 2024-10-24 11:43 | ED.WEAKNESS ---
HPI - Weakness General Chief complaint: Weakness Stated complaint: Weakness Time Seen by Provider: 10/24/24 11:31 History of Present Illness HPI Narrative: This 69-year-old male comes in by ambulance reporting weakness. He lives alone at home. He states that he quit drinking alcohol 5 days ago and since then has not had much to eat or drink. He states that he can get up to ambulate and usually uses a walker but when doing so he gets lightheaded. He does not report any pain or shortness of breath. Related Data Home Medications ?Medication ?Instructions ?Recorded ?Confirmed eszopiclone 3 mg tablet 3 mg PO HS PRN 01/30/23 08/15/24 omeprazole 20 mg capsule,delayed 20 mg PO BID 01/30/23 08/16/24 release acetaminophen 500 mg tablet 500 mg PO BID 08/16/24 08/16/24 cholecalciferol (vitamin D3) 25 2,000 unit PO DAILY 08/16/24 08/16/24 mcg (1,000 unit) capsule cyanocobalamin (vitamin B-12) 1,000 mcg PO DAILY 08/16/24 08/16/24 1,000 mcg tablet cyproheptadine 4 mg tablet 2 mg PO HS 08/16/24 08/16/24 duloxetine 20 mg capsule,delayed 40 mg PO DAILY 08/16/24 08/16/24 release (Cymbalta) melatonin 3 mg capsule 6 mg PO HS PRN 08/16/24 08/16/24 midodrine 5 mg tablet 5 mg PO TID@09,12,08/16/24 08/16/24 thiamine mononitrate (vit B1) 100 100 mg PO DAILY 08/16/24 08/16/24 mg tablet (Vitamin B-1 (mononitrate)) Previous Rx's ?Medication ?Instructions ?Recorded folic acid 1 mg tablet 1 mg PO DAILY #30 tabs 02/01/23 magnesium oxide 420 mg tablet 420 mg PO BID #60 tabs 08/18/24 potassium chloride 10 mEq 10 meq PO DAILY #30 tabs 08/18/24 tablet,extended release Allergies Allergy/AdvReac Type Severity Reaction Status Date / Time Penicillins Allergy Verified 10/24/24 11:31 Review of Systems Status of ROS: Reports: 10 or more systems reviewed and unremarkable except as noted in History and below Narrative: Constitutional: No fevers, no weight gain or loss. Eyes: No discharge. No vision changes. HENT: No congestion, no sore throat, no ear pain. Cardiovascular: No chest pain, no palpitations. Respiratory: No shortness of breath, no wheezes, no cough. Gastrointestinal: No abdominal pain, no vomiting, no diarrhea. Genitourinary: No dysuria, no hematuria. Musculoskeletal: Normal range of motion. Skin: No rashes, no pruritis. Neurological: No sensory change, speech change. Endo/Heme/Allergies: No bruising or bleeding. No polydipsia. Pysch: no suicidality, no anxiety, no insomnia. All other systems reviewed and are negative. [facility] Medical History (Updated 10/24/24 @ 15:02 by Eliseo Del Rosario MD) Hypomagnesemia ?E83.42 - Hypomagnesemia (ICD-10) Hypokalemia ?E87.6 - Hypokalemia (ICD-10) Physical deconditioning ?R53.81 - Other malaise (ICD-10) Weakness ?R53.1 - Weakness (ICD-10) GERD (gastroesophageal reflux disease) ?K21.9 - Gastro-esophageal reflux disease without esophagitis (ICD-10) Hypotension ?I95.9 - Hypotension, unspecified (ICD-10) Orthostatic hypotension ?I95.1 - Orthostatic hypotension (ICD-10) PTSD (post-traumatic stress disorder) ?F43.10 - Post-traumatic stress disorder, unspecified (ICD-10) Insomnia ?G47.00 - Insomnia, unspecified (ICD-10) Hyperlipidemia ?E78.5 - Hyperlipidemia, unspecified (ICD-10) Arthritis ?M19.90 - Unspecified osteoarthritis, unspecified site (ICD-10) Hypertension ?I10 - Essential (primary) hypertension (ICD-10) Fall (~07/2022) ?W19.XXXA - Unspecified fall, initial encounter (ICD-10) Pelvic fracture (~07/2022) ?S32.9XXA - Fracture of unspecified parts of lumbosacral spine and pelvis, initial encounter for closed fracture (ICD-10) Social History Narrative: Quit smoking in 2012, picked it up again last April and smoked through July or August of this year. Has not had cigarettes since that time. Continuous alcohol use over many years with the exception several months while in the hospital and halfway earlier this year for a pelvic fracture that was sustained he tripped down the stairs under the influence of alcohol. Upon returning home about 3 months ago, he increased his drinking quite a bit, but notes that it has now stabilized back down to about 1.5 L of vodka spread out over 6 days. Denies use of any other types of alcohol. Denies recreational drug use, but says if he had access to marijuana he would use it for his chronic pelvic pain. 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 he had several tours in [place] and [place] and has PTSD. He was also in the [employer] for a while. What is your current living situation?: I presently have a place to live Problems where you live: no known problems Problems where you live details: N/A In the past 12 months, utilities in danger of being shut off: no In past 12 months, lack of transportation kept you from medical appts, meetings, work, or getting things needed for daily living: no In the past 12 mos, have been you worried that your food would run out before you had money to buy more?: never true In the past 12 mos, the food you bought just didn't last and you didn't have money to buy more?: never true Highest level of school completed/degree received: Bachelor's degree Smoking Status: Former smoker What tobacco products do you use: cigarettes Smoking quit date/years: <= 15 years ago Do you use any of these nicotine containing products: None Nicotine containing products detail: Hx smoking 1PPD, now three days without smoking - pt attempting to quit Second hand tobacco smoke exposure: No How often do you have a drink containing alcohol: 4 or more times a week Alcohol type: hard liquor Alcohol type details: Pt reports drinking 1 pint of vodka every other day How many standard drinks containing alcohol do you have on a typical day: 3 or 4 How often do you have six or more drinks on one occasion: Never AUDIT-C Alcohol total score: 5 Non-prescribed substance use: denies use Caffeine: Yes How often does anyone, including family, friends and others, physically hurt you: never How often does anyone, including family, friends and others, insult or talk down to you: never How often does anyone, including family, friends and others, threaten you with harm: never How often does anyone, including family, friends and others, scream or curse at you: never service: Yes Exam Narrative: Exam Narrative: Constitutional: Well-developed, well-nourished, no acute distress. HEENT: Normocephalic, atraumatic. Neck: Normal range of motion. Nontender. Supple. Heart: Regular. No murmurs. Normal rate. Intact distal pulses. Lungs: Clear to auscultation. No chest discomfort. No wheezes, rhonchi, or rales. Abdomen: Normal bowel sounds. Nontender. No rebound tenderness. Genitalia: Deferred. Back: No midline tenderness. Normal range of motion. Extremities: Normal range of motion. No injury. No pedal edema. Skin: Intact. No rash. Warm. No erythema or pallor. Neurologic: No altered sensation. No weakness. Alert and oriented. No facial asymmetry. Tongue is midline. [id number] is normal. No pronator drift. Supervisor Matrix strength is equal bilaterally. Able to raise each leg from the bed. Psychiatric: No suicidality. No anxiety or depression. No insomnia. Nursing notes and vitals signs are reviewed. Const: Vital Signs, click to edit/add: Vital Signs - 24 hr 10/24/24 11:31 10/24/24 13:38 Temperature 98.2 F 98.4 F Pulse Rate [Pulse Oximeter] 84 94 Respiratory Rate 18 16 Blood Pressure [Le ft Upper Arm] 130/82 123/78 Pulse Oximetry 96 94 Oxygen Delivery Me thod Room Air Room Air Course Vital Signs Vital signs: Initial Vital Signs Temperature 98.2 F 10/24/24 11:31 Temperature Source Temporal Artery Scan 10/24/24 11:31 Pulse Rate 84 10/24/24 11:31 Respiratory Rate 18 10/24/24 11:31 Blood Pressure 130/82 10/24/24 11:31 Blood Pressure Mean 98 10/24/24 11:31 Blood Pressure Position Sitting 10/24/24 11:31 Pulse Oximetry 96 10/24/24 11:31 Oxygen Delivery Method Room Air 10/24/24 11:31 Vital Signs Temperature 98.2 F 10/24/24 11:31 Pulse Rate 84 10/24/24 11:31 Respiratory Rate 18 10/24/24 11:31 Blood Pressure 130/82 10/24/24 11:31 Pulse Oximetry 96 10/24/24 11:31 Oxygen Delivery Method Room Air 10/24/24 11:31 Temperature 98.4 F 10/24/24 13:38 Pulse Rate 94 10/24/24 13:38 Respiratory Rate 16 10/24/24 13:38 Blood Pressure 123/78 10/24/24 13:38 Pulse Oximetry 94 10/24/24 13:38 Oxygen Delivery Method Room Air 10/24/24 13:38 Medications Administered Medications: Discontinued Medications Generic Name Dose Route Start Last Admin Trade Name Rosa PRN Reason Stop Dose Admin Dextrose/Sodium Chloride 1,000 mls @ 1,000 mls/hr 10/24/24 11:42 10/24/24 13:26 5 % Dextrose/0.45% Sod Chlor IV 10/24/24 12:41 Infused .Q1H ONE Infusion Ondansetron HCl 4 mg 10/24/24 14:06 10/24/24 14:23 Ondansetron 2 Mg/Ml Inj IVP 10/24/24 14:07 4 mg ONCE ONE Administration MDM - Weakness MDM Narrative Medical decision making narrative: This patient comes in reporting generalized weakness. He did stop taking alcohol 5 days ago and is not showing any signs of withdrawal symptoms. He states that he has not had anything to eat and did not have much to drink since then. He does arrive here with normal vital signs. An IV was established where he did receive a L of D5 half normal saline. Labs are acquired and these returned with reassuring findings. A road test was conducted the patient was able to get up and ambulate with the assistance of a walker as he usually does at home. He states that he did feel some lightheadedness when doing this. He reports that he is on blood pressure medicines but is unsure of what they are. I stated that he may not need medicine to lower his blood pressure and if he is having recurrent lightheadedness with ambulating it would be okay to discontinue this medicine for few days and follow up with his regular doctor. The patient is okay to be discharged home with. Lab Data Labs: Lab Results 10/24/24 10/24/24 Range/Units 11:42 12:20 WBC 7.77 (4.50-11.00) K/uL RBC 4.11 L (4.30-5.90) m/uL Hgb 14.6 (13.5-17.5) gm/dL Hct 41.8 (37.0-53.0) % MCV 102 H (80-100) fL MCH 36 H (26-34) pg MCHC 35 (32-36) gm/dL RDW Coeff of Shayy 12.6 (11.5-15.5) % Plt Count 200 (140-440) K/uL Neut % (Auto) 67.0 (42.0-72.0) % Lymph % (Auto) 21.0 (20-44) % [place] % (Auto) 9.5 (0.0-11.0) % Eos % (Auto) 1.7 (0.0-7.0) % Baso % (Auto) 0.5 (0.0-3.0) % Neut # (Auto) 5.21 (1.7-7.0) K/uL Lymph # (Auto) 1.63 (0.90-2.90) K/uL [place] # (Auto) 0.70 (0.00-0.90) K/UL Eos # (Auto) 0.13 (0.00-0.50) K/uL Baso # (Auto) 0.04 (0.00-0.30) K/uL Abs Immat Gran (auto) 0.02 (0.00-0.30) K/uL Imm/Tot Granulo (auto) 0.3 % Sodium 132 L (135-149) mmol/L Potassium 3.8 (3.6-5.1) mmol/L Chloride 95 L (96-114) mmol/L Carbon Dioxide 23 (20-32) mmol/L Anion Gap 14 (7-15) mEq/L BUN 15 (7-30) mg/dL Creatinine 0.9 (0.5-1.5) mg/dL Estimated GFR 93 ml/min Glucose 82 (60-115) mg/dL Calcium 9.3 (8.4-10.6) mg/dL POC Troponin I 0.01 (0.01-0.04) ng/ml ECG Data Attestation: I personally reviewed and interpreted this ECG as follows: Interpretation: Sinus rhythm with dysrhythmia. Rate is 81 beats per minute. There are no specific ST or T-wave abnormalities. Discharge Plan Discharge Clinical Impression: Generalized weakness Patient Disposition: Home, Self-Care Condition: Stable Additional Instructions: Continue current plans. Follow up with primary physician for ongoing management. Return if worsening symptoms occur. Prescriptions: No Action omeprazole 20 mg capsule,delayed release(DR/EC) 20 mg PO BID eszopiclone 3 mg tablet 3 mg PO HS PRN folic acid 1 mg Tablet 1 mg PO DAILY Qty: 30 0RF acetaminophen 500 mg tablet 500 mg PO BID cholecalciferol (vitamin D3) 25 mcg (1,000 unit) capsule 2,000 unit PO DAILY cyanocobalamin (vitamin B-12) 1,000 mcg tablet 1,000 mcg PO DAILY cyproheptadine 4 mg tablet 2 mg PO HS duloxetine [Cymbalta] 20 mg capsule,delayed release(DR/EC) 40 mg PO DAILY melatonin 3 mg capsule 6 mg PO HS PRN midodrine 5 mg tablet 5 mg PO TID@09,12,17 thiamine mononitrate (vit B1) [Vitamin B-1 (mononitrate)] 100 mg Tablet 100 mg PO DAILY potassium chloride 10 mEq tablet extended release 10 meq PO DAILY Qty: 30 2RF magnesium oxide 420 mg tablet 420 mg PO BID Qty: 60 0RF Follow Up/Referrals: Provider,Not a Local [Primary Care Provider, Family Practice] Stand Alone [facility]: [facility] Info Inst[facility]
--- OUTSIDE RECORDS SUMMARY | 2024-10-24 12:11 | XMS_ITS | Encounter Summary ---
Author Name [facility] [place] [facility] [place] [facility] [place] Address [address] [place] [address] Care Team Providers Care Traffic Enumerator Name Role Phone HA HENDERSON Primary Care [...] Hurt's Name Patient's Relationship to Policy Hurt [facility] (WNR) MEDICARE ADVANTAGE MCR ([facility]) May 16, 2023 [id number] JEAN JAIN IN PATIENT [facility] (WNR) MEDICARE ADVANTAGE MCR ([facility]) May 16, 2023 [id number] JEAN JAIN IN PATIENT Selected Encounter [...] this document. The data comes from all [place] facilities. Date Advance Directives Provider Source Oct 31, 2023 ADVANCE DIRECTIVE HERLINDA SONG ([place]) Oct 17, 2023 ADVANCE DIRECTIVE DISCUSSION [facility] May 11, 2006 ADVANCE DIRECTIVE PEDRO CAMACHO [facility]
--- OUTSIDE RECORDS SUMMARY | 2024-10-24 12:11 | XMS_ITS | Encounter Summary ---
Author Name [facility] [place] [facility] [place] [facility] [place] Address [address] [place] [address] Care Team Providers Care Master [place] Name Role Phone HA HENDERSON Primary Care [...] Hurt's Name Patient's Relationship to Policy Hurt [facility] (WNR) MEDICARE ADVANTAGE MCR ([facility]) May 16, 2023 [id number] JEAN JAIN IN PATIENT [facility] (WNR) MEDICARE ADVANTAGE MCR ([facility]) May 16, 2023 [id number] JEAN JAIN IN PATIENT Selected Encounter [...] Oct 17, 2023 ADVANCE DIRECTIVE DISCUSSION [facility] May 11, 2006 ADVANCE DIRECTIVE PEDRO CAMACHO [facility]
--- OUTSIDE RECORDS SUMMARY | 2024-10-24 12:12 | XMS_ITS | Encounter Summary ---
Author Name [facility] [place] [facility] [place] Address [address] [place] [address] Care Team Providers Care Machine Room Operator Name Role Phone HA HENDERSON Primary [...] Hurt's Name Patient's Relationship to Policy Hurt [facility] (WNR) MEDICARE ADVANTAGE MCR ([facility]) May 16, 2023 [id number] JEAN JAIN IN PATIENT [facility] (WNR) MEDICARE ADVANTAGE MCR ([facility]) May 16, 2023 [id number] JEAN JAIN IN PATIENT Selected Encounter [...] [place] facilities. Date Advance Directives Provider Source Oct 31, 2023 ADVANCE DIRECTIVE HERLINDA SONG ([place]) Oct 17, 2023 ADVANCE DIRECTIVE DISCUSSION [facility] May 11, 2006 ADVANCE DIRECTIVE PEDRO CAMACHO [facility]
[2024-10-24] MEDS: 5 % DEXTROSE/0.45% SOD CHLOR 1,000 ML 1000 ML IV (12:23)
[2024-10-24 12:24] LABS: Basophils Absolute Auto 0.04 K/uL (0.00-0.30); Basophils Percent Auto 0.5 % (0.0-3.0); Eosinophils Absolute Auto 0.13 K/uL (0.00-0.50); Eosinophils Percent Auto 1.7 % (0.0-7.0); Hematocrit 41.8 % (37.0-53.0); Hemoglobin* 14.6 gm/dL (13.5-17.5); Immature Granulocytes Abs Auto 0.02 K/uL (0.00-0.30); Immature Granulocytes Pct Auto 0.3 %; Lymphocytes Absolute Auto 1.63 K/uL (0.90-2.90); Mean Corpuscular HGB Conc 35 gm/dL (32-36); Mean Corpuscular Hemoglobin 36 pg (26-34); Mean Corpuscular Volume 102 fL (80-100); Monocytes Percent Auto 9.5 % (0.0-11.0); Neutrophils Absolute Auto 5.21 K/uL (1.7-7.0); Platelet Count* 200 K/uL (140-440); RDW Coefficient of Variation % 12.6 % (11.5-15.5); Red Blood Count 4.11 m/uL (4.30-5.90); Slide Review Reflex No; White Blood Count* 7.77 K/uL (4.50-11.00)
[2024-10-24 12:43] LABS: Troponin, Point-of-Care* 0.01 ng/ml (0.01-0.04)
[2024-10-24 12:44] LABS: Chloride* 95 mmol/L (96-114); Potassium* 3.8 mmol/L (3.6-5.1); Sodium* 132 mmol/L (135-149)
[2024-10-24 12:47] LABS: Blood Urea Nitrogen* 15 mg/dL (7-30); Creatinine* 0.9 mg/dL (0.5-1.5); Estimated Glomerular Filt Rate 93 ml/min
[2024-10-24 12:48] LABS: Anion Gap 14 mEq/L (7-15); Calcium* 9.3 mg/dL (8.4-10.6); Carbon Dioxide* 23 mmol/L (20-32); Glucose* 82 mg/dL (60-115)
[2024-10-24 13:38] VITALS: BP 123/78; PULSE 94; RESP 16; TEMP 36.9; O2SAT 94
[2024-10-24] MEDS: ONDANSETRON 2 MG/ML inj 4 MG IVP (14:23)
== END 2024-10-24 16:40 | disposition home or self-care (01) ==
PROVIDERS: Emergency Provider Emergency Medicine Emergency Medical Services
DX: R53.1 Weakness (principal)
CPT/HCPCS: 36415; 80048; 84484; 85025; 93005; 96361; 96374; 99284; J2405; S5010

== ENCOUNTER 2024-10-29 11:00 | Outpatient (CLI) | payer MEDICARE, OTHER, SELFPAY | END 2024-10-29 11:01 | disposition home or self-care (01) | LOC: AMB 10-31 08:52 | PROVIDERS: Visit Provider Emergency Medicine | DX: R55 Syncope and collapse (principal) | CPT/HCPCS: A0425; A0429 ==